=== PATIENT | female | born 1960 | race American Indian/Alaskan Native ===

== ENCOUNTER 2021-03-02 13:46 | Inpatient (IN) | payer BC, SELFPAY ==
[2021-03-02] MEDS ORDERED: ONDANSETRON 4 MG ODT TAB PO PRN (14:26)
[2021-03-02] MEDS ORDERED: ACETAMINOPHEN 325 MG TAB PO PRN (14:26)
[2021-03-02] MEDS: HEPARIN 5,000 UNIT/1 ML VIAL SUB-Q SCH (22:45)
[2021-03-03] MEDS: HEPARIN 5,000 UNIT/1 ML VIAL SUB-Q SCH ×3 (06:02→21:51)
[2021-03-03] MEDS: hydrALAZINE 20 MG/1 ML INJ IV PRN (06:15)
[2021-03-03 08:04] LABS: Basophils % (Auto) 0.9 % (0.0-1.8); Eosinophils # (Auto) 0.1 K/mm3 (0.0-0.4); Eosinophils % (Auto) 2.9 % (0.0-4.3); Hematocrit 24.3 % (30.3-42.9); Lymphocytes # (Auto) 1.1 K/mm3 (1.2-5.4); Lymphocytes % (Auto) 43.4 % (13.4-35.0); Mean Corpuscular HGB Conc 33 % (30-34); Mean Corpuscular Volume 86 fl (79-97); Monocytes # (Auto) 0.3 K/mm3 (0.0-0.8); Monocytes % (Auto) 10.4 % (0.0-7.3); Platelet Count 156 K/mm3 (140-440); Red Blood Count 2.81 M/mm3 (3.65-5.03)
[2021-03-03 08:16] LABS: Albumin 2.6 g/dL (3.9-5); Calcium 9.4 mg/dL (8.4-10.2)
[2021-03-03] MEDS: FERROUS SULFATE 325 MG TAB PO SCH (09:53)
[2021-03-03] MEDS: amLODIPine 10 MG TAB PO SCH (09:53)
--- NOTE | 2021-03-03 10:09 | History and Physical Report ---
History of Present Illness Date: 03/03/21 Date of admission: 03/02/21 18:36 Chief Complaint: Debility with difficulty walking History of present illness: 61-year-old female who experienced left-sided flank pain with onset about 2 weeks prior to presentation to outside hospital on February 26. Patient apparently had intermittent nausea and vomiting and decreased appetite and has felt unsteady on her feet. She was admitted, worked up and treated for pyelonephritis. However all cultures came back negative. CT head was negative for any acute findings. CT abdomen pelvis showed no acute findings or abnormalities to account for flank pain. Patient was seen by therapy who felt she was a good candidate for rehabilitation as she was showing significant decline in her ambulation. Patient lives with her daughter and is anxious to return to home as quickly as possible as she has a grandchild. Patient is now stating that she does not believe she has any problems with walking and wants to go home as soon as possible. After the patient was medically stabilized they were transferred for further rehabilitation. All available medical records have been reviewed. Plan of care was discussed with patient. Past History Past Medical History: hypertension Past Surgical History: No surgical history Social history: lives with family. denies: smoking, alcohol abuse Family history: hypertension Medications and Allergies Allergies Allergy/AdvReac Type Severity Reaction Status Date / Time No Known Allergies Allergy Verified 04/13/14 23:00 Home Medications Medication Instructions Recorded Confirmed Last Taken Type Lisinopril/Hydrochlorothiazide 1 tab PO QDAY #15 tablet 04/14/14 Unknown Rx [Zestoretic 10-12.5 mg] Active Meds: Active Medications Acetaminophen (Acetaminophen 325 Mg Tab) 650 mg PO Q6H PRN PRN Reason: Non Cardiac Pain or Temp>100.5 Amlodipine Besylate (Amlodipine 10 Mg Tab) 10 mg PO QDAY [facility] Last Admin: 03/03/21 09:53 Dose: 10 mg Documented by: Bisacodyl (Bisacodyl 10 Mg Rect Supp) 10 mg HI QDAY PRN PRN Reason: Constipation Bisacodyl (Bisacodyl 5 Mg Tab) 5 mg PO QDAY PRN PRN Reason: Constipation Ferrous Sulfate (Ferrous Sulfate 325 Mg Tab) 325 mg PO QDAY [facility] Last Admin: 03/03/21 09:53 Dose: 325 mg Documented by: Heparin Sodium (Porcine) (Heparin 5,000 Unit/1 Ml Vial) 5,000 unit SUB-Q Q8HR JARROD Last Admin: 03/03/21 06:02 Dose: 5,000 unit Documented by: Hydralazine HCl (Hydralazine 20 Mg/1 Ml Inj) 10 mg IV Q4HR PRN PRN Reason: Hypertension Last Admin: 03/03/21 06:15 Dose: 10 mg Documented by: Ondansetron HCl (Ondansetron 4 Mg Odt Tab) 4 mg PO Q8H PRN PRN Reason: Nausea And Vomiting Review of Systems All systems: negative (ROS negative for 10 systems except as noted below with pertinent positives and negatives.) Constitutional: no weight loss, no fever, no chills Ears, nose, mouth and throat: no decreased hearing, no dysphagia Cardiovascular: no palpitations, no edema Respiratory: no cough, no shortness of breath Gastrointestinal: constipation, no abdominal pain, no nausea, no vomiting, no diarrhea Musculoskeletal: no arm numbness/tingling, no leg numbness/tingling Integumentary: no rash, no redness Neurological: no weakness, no parathesias, no tremors Psychiatric: no anxiety, no sleep disturbances Exam - Exam Narrative exam: MUSCULOSKELETAL SPECIALTY EXAM CONSTITUTIONAL: Well developed, well nourished, appropriately groomed LYMPHATIC: No appreciable abnormalities palpable in neck EENT: Oropharynx clear. Hearing intact to soft voice RESPIRATORY: Clear to auscultation bilaterally, no increased work of breathing CARDIOVASCULAR: Regular Rate/ Rhythm, no swelling, edema or tenderness in BUE or BLE. Pulses palpable in all extremities. All extremities warm. GI: + bowel sounds, soft, NTTP, nondistended. INTEGUMENTARY: Normal, no lesion, rash, masses or bruising noted in extremities. MUSCULOSKELETAL: BUE and BLE normal without defect, crepitus, subluxation, effusion, arthritic changes or TTP. BUE 4+/5, good ROM, with normal tone. BLE 4+/5 good ROM, with normal tone NEURO: CN 2-12 grossly intact. Sensation intact in all extremities. Reflexes 2+ bilaterally at biceps, brachioradialis and patella. No clonus at ankles. Coordination intact in BUE. No tremor noted in 4 extremities. POSTURE and GAIT: Sitting posture good. Balance and gait deferred until seen with therapy due to safety. PSYCH: Alert, oriented x3, affect appears blunted. Insight appears mostly intact. - Constitutional Vitals: Vital Signs - 12hr 03/02/21 03/03/21 03/03/21 23:04 05:03 06:15 Temperature 98.9 F Pulse Rate 80 Respiratory 16 Rate Blood Pressure 164/95 Blood Pressure 164/95 [Right] O2 Sat by Pulse 98 100 Oximetry 03/03/21 03/03/21 07:07 09:53 Temperature 99.0 F Pulse Rate 80 80 Respiratory 16 Rate Blood Pressure 165/92 165/92 Blood Pressure [Right] O2 Sat by Pulse 100 Oximetry - Labs CBC & Chem 7: 03/03/21 06:52 03/03/21 06:52 Labs: Laboratory Results - last 72 hr 03/03/21 03/03/21 06:52 06:52 WBC 2.6 L RBC 2.81 L Hgb 8.0 L Hct 24.3 L MCV 86 MCH 28 MCHC 33 RDW 15.0 Plt Count 156 Lymph % (Auto) 43.[address] [place] % (Auto) 10.4 H Eos % (Auto) 2.9 Baso % (Auto) 0.9 Lymph # (Auto) 1.[address] [place] # (Auto) 0.3 Eos # (Auto) 0.1 Baso # (Auto) 0.0 Seg Neutrophils % 42.4 Seg Neutrophils # 1.1 L Sodium 138 Potassium 4.1 Chloride 109.6 H Carbon Dioxide 20 L Anion Gap 13 BUN 20 H Creatinine 1.3 H Estimated GFR 50 BUN/Creatinine Ratio 15 Glucose 89 Calcium 9.4 Iron 51 TIBC 176 L Total Bilirubin 0.30 AST 31 ALT 7 Alkaline Phosphatase 33 L Total Protein 9.0 H Albumin 2.6 L Albumin/Globulin Ratio 0.4 Assessment and Plan Assessment and plan: Patient was assessed and evaluated for Acute Inpatient Rehab Unit. Due to the patients above-mentioned medical complexity, along with decreased functional mobility and self care, this patient continues to require and be appropriate for a comprehensive, multidisciplinary [id number] rehabilitation program. These needs cannot be met in an outpatient or other less intensive setting. The patient would continue to benefit from skilled therapy intervention for at least 3 hours per day, five days a week, with techniques specific to the needs of the patient to improve function, activities of daily living, and reintegration into the community. The patient continues to require: -- OT to improve ROM, self-care, and learn use of adaptive equipment -- PT to improve strength and balance, functional transfers, and ambulation with energy conservation techniques to improve functional mobility -- 24 hour RN to ensure and prevent skin breakdown, promote progressive independence while ensuring safety, ensure education regarding medications, and incorporation of the rehabilitation at the bedside -- 24 hour Physical Medicine Specialist to coordinate this interdisciplinary program, and to manage/prevent complications as a result of the patients medical comorbidities. -Plan of care by day 4 -Weekly team conferences With such a program, there is a reasonable certainty that the goals individualized for this patient can be achieved within the specified length of stay. Hypertension: Continue medication. Monitor blood pressure. Adjust medications as needed for normotension. Hold for hypotension. Goal SBP <140 CKD 3: Monitor renal function and avoid nephrotoxic medications. Consider nephrology consult if needed. Work-up at outside hospital consider diuretic use prior to admission to be main culprit. Patient responded to gentle IV fluids. Patient previously with unknown CKD so no baseline creatinine on record. On admission to outside hospital, BUN 70, creatinine 4.01. Anemia: Patient was started on iron at outside hospital however TIBC on admission p.o. was 176 with a normal iron level. Will work-up anemia which may be related to CKD. Neutropenia, borderline: Records from outside hospital showed absolute neutrophils at 1.9, slightly decreased here. We will continue to monitor and consider neutropenic precautions if she continues to drop. ADL dysfunction: OT will work on improving ability to perform ADLs (including assistive devices) to increase independence and decrease caregiver burden and improve functional transfers and mobility training. Difficulty walking: PT will work on gait training and proper use of assistive devices and advance as appropriate to use of stairs and outside ambulation on uneven surfaces. Unsteadiness on feet: PT will work on improving static and dynamic sitting and standing balance as well as proper use of assistive devices to decrease risk of falls. Abnormality of gait: PT will work to improve safety and efficiency of gait through neuromotor training and gait training along with instruction on proper use of assistive devices. Muscle weakness: PT & OT will work on strengthening exercises to improve functional strength including mixture of closed and open kinetic chain exercises. Debility: PT & OT will work on improving overall functional status to improve participation with ADLs, mobility and social involvement. Fatigue: PT & OT will work on improving endurance through aerobic exercises and therapeutic activity while monitoring patients tolerance for activity and vital signs as needed. DVT ppx: Heparin 3 times daily Pain: Continue physical modalities in therapy and pain medications as needed to achieve functional pain control. Sleep: Monitor and address as needed. Bowel: Monitor and address as needed. Appetite: Monitor and address as needed. Discharge planning: Pending therapy progress and care plan meeting. Will continue discussion with therapy team, SW, patient and family. Restrictions/ Precautions: Falls WB status: FWB Functional Hx: ADLs: Independent Cognition: Independent Mobility: No AD Barriers to Discharge: Decreased mobility and ability to perform self care, balance deficits, weakness Estimated Length of Stay: 710 days Discharge Destination: Home with family POST ADMISSION PHYSICIAN EVALUATION I have examined the patient and find that functional status, medical condition and appropriateness for IRF admission are essentially unchanged from those d escribed in the preadmission screening. Will monitor for worsening mobility/debility, DVT/PE, bowel and bladder complications and complications due to hypertension, CKD, neutropenia, ill-defined anemia, recurrent infection and electrolyte abnormalities. Will attempt to avoid occurrence of these issues or treat them if they present themselves.
[2021-03-04] MEDS: HEPARIN 5,000 UNIT/1 ML VIAL SUB-Q SCH ×3 (05:26→21:32)
[2021-03-04] MEDS: amLODIPine 10 MG TAB PO SCH ×2 (06:38→08:49)
[2021-03-04] MEDS: FERROUS SULFATE 325 MG TAB PO SCH (08:49)
[2021-03-05] MEDS: HEPARIN 5,000 UNIT/1 ML VIAL SUB-Q SCH ×3 (05:17→21:15)
[2021-03-05 07:13] LABS: Hemoglobin 8.8 gm/dl (10.1-14.3); Mean Corpuscular HGB Conc 34 % (30-34); Mean Corpuscular Volume 85 fl (79-97); Platelet Count 160 K/mm3 (140-440); Red Blood Count 3.05 M/mm3 (3.65-5.03)
[2021-03-05 07:32] LABS: Calcium 9.6 mg/dL (8.4-10.2)
--- NOTE | 2021-03-05 08:58 | Progress Note ---
Subjective Date of service: 03/05/21 Principal diagnosis: Debility with difficulty walking Interval history: 61-year-old female who experienced left-sided flank pain with onset about 2 weeks prior to presentation to outside hospital on February 26. Patient apparently had intermittent nausea and vomiting and decreased appetite and has felt unsteady on her feet. She was admitted, worked up and treated for pyelonephritis. However all cultures came back negative. CT head was negative for any acute findings. CT abdomen pelvis showed no acute findings or abnormalities to account for flank pain. Patient was seen by therapy who felt she was a good candidate for rehabilitation as she was showing significant decline in her ambulation. Patient lives with her daughter and is anxious to return to home as quickly as possible as she has a grandchild. Patient is now stating that she does not believe she has any problems with walking and wants to go home as soon as possible. Hypertension: Patient remains slightly elevated greater than goal of 140/90. No episodes of hypotension. Start Coreg and monitor for improvement while attempting to avoid hypotension especially with standing. CKD 3: BUN and creatinine slightly worse today than on admission. No previously diagnosed renal disease however BUN and creatinine greatly elevated at outside hospital with suspected CKD 3. Patient had acute exacerbation as well but has been improving since outside admission. We will continue to monitor and consider gentle IV fluids versus nephrology consult. Anemia: Improved slightly, asymptomatic, continue to monitor. Awaiting labs for anemia work-up. Appears normocytic, with renal function would lean towards chronic disease. Leukopenia, borderline neutropenia: Stable currently, continue to monitor. Patient will need to further work-up as an outpatient. Patient does state that she feels like she is lost weight but cannot necessarily give me a number of pounds over the last several months. Debility: Improving. Protein calorie malnutrition: Have started supplements with meals. Objective - Exam Narrative Exam: MUSCULOSKELETAL SPECIALTY EXAM CONSTITUTIONAL: Well developed, well nourished, appropriately groomed RESPIRATORY: Clear to auscultation bilaterally, no increased work of breathing CARDIOVASCULAR: Regular Rate/ Rhythm, no swelling, edema or tenderness in BUE or BLE. All extremities warm. GI: + bowel sounds, soft, NTTP, nondistended. INTEGUMENTARY: Normal, no lesion, rash, masses or bruising noted in extremities. MUSCULOSKELETAL: BUE and BLE normal without defect, crepitus, subluxation, effusion, arthritic changes or TTP. BUE 4+/5, good ROM, with normal tone. BLE 4+/5 good ROM, with normal tone NEURO: Sensation intact in all extremities. No tremor noted in 4 extremities. POSTURE and GAIT: Sitting posture good. Balance is fair, gait is fairly reasonable with occasional loss of balance. PSYCH: Alert, oriented x3, affect appears blunted. Insight appears mostly intact. - Constitutional Vitals: Vital Signs - 12hr 03/04/21 03/05/21 03/05/21 22:00 05:06 07:39 Temperature 98.6 F 98.3 F Pulse Rate 94 H 86 Respiratory 16 18 Rate Respiratory 18 Rate [abd] Blood Pressure 144/77 141/77 O2 Sat by Pulse 99 99 Oximetry - Allied health notes Allied health notes reviewed: nursing, PT, OT FIMS assessment as documented by PT/OT/ST: Locomotion- walk/wheelchair Ambulation Distance 40 - Labs CBC & Chem 7: 03/05/21 06:46 03/05/21 06:46 Labs: Laboratory Results - last 72 hr 03/03/21 03/03/21 03/05/21 06:52 06:52 06:46 WBC 2.6 L 2.5 L RBC 2.81 L 3.05 L Hgb 8.0 L 8.8 L Hct 24.3 L 26.0 L MCV 86 85 MCH 28 29 MCHC 33 34 RDW 15.0 15.0 Plt Count 156 160 Lymph % (Auto) 43.4 H [place] % (Auto) 10.4 H Eos % (Auto) 2.9 Baso % (Auto) 0.9 Lymph # (Auto) 1.1 L [place] # (Auto) 0.3 Eos # (Auto) 0.1 Baso # (Auto) 0.0 Seg Neutrophils % 42.4 Seg Neutrophils # 1.1 L Sodium 138 Potassium 4.1 Chloride 109.6 H Carbon Dioxide 20 L Anion Gap 13 BUN 20 H Creatinine 1.3 H Estimated GFR 50 BUN/Creatinine Ratio 15 Glucose 89 Calcium 9.4 Iron 51 TIBC 176 L Total Bilirubin 0.30 AST 31 ALT 7 Alkaline Phosphatase 33 L Total Protein 9.0 H Albumin 2.6 L Albumin/Globulin Ratio 0.4 03/05/21 06:46 WBC RBC Hgb Hct MCV MCH MCHC RDW Plt Count Lymph % (Auto) [place] % (Auto) Eos % (Auto) Baso % (Auto) Lymph # (Auto) [place] # (Auto) Eos # (Auto) Baso # (Auto) Seg Neutrophils % Seg Neutrophils # Sodium 136 L Potassium 4.0 Chloride 106.1 Carbon Dioxide 21 L Anion Gap 13 BUN 25 H Creatinine 1.7 H Estimated GFR 37 BUN/Creatinine Ratio 15 Glucose 73 Calcium 9.6 Iron 58 TIBC 185 L Total Bilirubin AST ALT Alkaline Phosphatase Total Protein Albumin Albumin/Globulin Ratio Assessment and Plan Hypertension: Continue medication. Monitor blood pressure. Adjust medications as needed for normotension. Hold for hypotension. Goal SBP <140. Have started Coreg in addition to amlodipine. Monitor and adjust as needed CKD 3: Monitor renal function and avoid nephrotoxic medications. Consider nephrology consult if needed. Work-up at outside hospital consider diuretic use prior to admission to be main culprit. Patient responded to gentle IV fluids. Patient previously with unknown CKD so no baseline creatinine on record. On admission to outside hospital, BUN 70, creatinine 4.01. Anemia: Patient was started on iron at outside hospital however TIBC on admission p.o. was 176 with a normal iron level. Will work-up anemia which may be related to CKD. Labs are pending Leukopenia, borderline neutropenia: Records from outside hospital showed absolute neutrophils at 1.9, slightly decreased here. We will continue to monitor and consider neutropenic precautions if she continues to drop. Patient may need to have further work-up with hematology as an outpatient. Protein calorie malnutrition: Supplements started. Patient states she does not like the food available so far at the hospital. Did state that she also had some issues with eating at home. Has admitted to weight loss over the past several months but cannot put a number on it. ADL dysfunction: OT will work on improving ability to perform ADLs (including assistive devices) to increase independence and decrease caregiver burden and improve functional transfers and mobility training. Difficulty walking: PT will work on gait training and proper use of assistive devices and advance as appropriate to use of stairs and outside ambulation on uneven surfaces. Unsteadiness on feet: PT will work on improving static and dynamic sitting and standing balance as well as proper use of assistive devices to decrease risk of falls. Abnormality of gait: PT will work to improve safety and efficiency of gait through neuromotor training and gait training along with instruction on proper use of assistive devices. Muscle weakness: PT & OT will work on strengthening exercises to improve functional strength including mixture of closed and open kinetic chain exercises. Debility: PT & OT will work on improving overall functional status to improve participation with ADLs, mobility and social involvement. Fatigue: PT & OT will work on improving endurance through aerobic exercises and therapeutic activity while monitoring patients tolerance for activity and vital signs as needed. DVT ppx: Heparin 3 times daily Pain: Continue physical modalities in therapy and pain medications as needed to achieve functional pain control. Sleep: Monitor and address as needed. Bowel: Monitor and address as needed. Appetite: Monitor and address as needed. Discharge planning: Pending therapy progress and care plan meeting. Will continue discussion with therapy team, SW, patient and family. Restrictions/ Precautions: Falls WB status: FWB Functional Hx: ADLs: Independent Cognition: Independent Mobility: No AD Barriers to Discharge: Decreased mobility and ability to perform self care, balance deficits, weakness Estimated Length of Stay: 710 days Discharge Destination: Home with family
[2021-03-05 09:28] LABS: Total Cells Counted 100
[2021-03-05 09:29] LABS: Platelet Estimate Consistent w Auto; RBC Morphology Normal
[2021-03-05] MEDS: amLODIPine 10 MG TAB PO SCH (10:02)
[2021-03-05] MEDS: FERROUS SULFATE 325 MG TAB PO SCH (10:02)
[2021-03-05] MEDS: hydrALAZINE 20 MG/1 ML INJ IV PRN (16:24)
--- NOTE | 2021-03-05 21:09 | IRU Plan of Care ---
Interdisciplinary Plan of Care - IP IRU INTERDISCIPLINARY PLAN: [facility] Inpatient Rehab Unit Plan of Care IRU Interdisciplinary Care Plan Start: 03/02/21 18:40 Freq: Admission then PRN Status: Active Protocol: Document 03/05/21 20:05 TH (Rec: 03/05/21 20:10 TH [id number]) Interdisciplinary Problem List Interdisciplinary Problem List Interdisciplinary Problem List Impaired Bathing/Grooming, Query Text:Answers will Trigger Problems Impaired Dressing,Impaired and Outcomes on Worklist. Mobility,Impaired Transfers, Impaired Toileting,Impaired Memory,Discharge Concerns, Impaired Home Management, Impaired Safety,Impaired Cardiovascular System IRU Interdisciplinary Care Plan Therapy Services Therapy Services Will Include: Physical Therapy,Occupational Query Text:Patient will be seen for a Therapy minimum of 3 hours of daily therapy 5 out of 7 days a week. Therapy intensity may be adjusted within a 7 consecutive day period to effectively serve the individual needs of the patient. Treatment Frequency/Intensity/Duration Treatment Frequency 5 days per week Treatment Intensity 3 hours per day Treatment Duration 7-10 days Problem Area: Eating/Swallowing Eating/Swallowing Outcomes Eating/Swallowing Interventions Problem Area: Bathing/Grooming Bathing/Grooming Outcomes Improve [place] w/ Grooming,Improve [place] w/ Bathing Bathing/Grooming Interventions ADL Training,Use of Assistive Devices,Therapeutic Exercise, Therapeutic Activity, Neuromuscular Re-Education, Balance Work,Activity Tolerance Work,Patient/ Caregiver Education Problem Area: Dressing Dressing Outcomes Improve [place] w/ UB Dressing,Improve [place] w/ LB Dressing Dressing Interventions ADL Training,Use of Assistive Devices,Neuromuscular Re- Education,Therapeutic Exercise ,Balance Work,Modalities, Patient/Caregiver Education Problem Area: Mobility Mobility Outcomes Improve [place] w/ Ambulation,Improve [place] w/ Stairs/Curb Mobility Interventions Therapeutic Exercise, Neuromuscular Re-Ed.,Use of Assistive Devices,Patient/ Caregiver Education,Gait Training Problem Area: Transfers Transfers Outcomes Improve [place] w/ Bed Transfers Transfers Interventions Transfer Training,Therapeutic Exercise,Neuromuscular Re- Education,Activity Tolerance Work,Patient/Caregiver Education Problem Area: Bowel/Bladder Managment Bowel/Bladder Outcomes Bowel/Bladder Interventions Problem Area: Toileting Toileting Outcomes Improve [place] w/ Toileting Toileting Interventions ADL Training,Balance Work,Use of Assistive Devices,Patient/ Caregiver Education Problem Area: Nutrition Nutrition Outcomes Nutrition Interventions Problem Area: Comprehension Comprehension Outcomes Comprehension Interventions Problem Area: Expression Expression Outcomes Expression Interventions Problem Area: Problem Solving Problem Solving Outcomes Problem Solving Interventions Problem Area: Memory Memory Outcomes Memory Interventions Problem Area: Pain Management Pain Management Outcomes Pain Management Interventions Problem Area: Knowledge Deficits Knowledge Deficits Outcomes Knowledge Deficits Interventions Problem Area: Skin/Tissue Integrity Skin/Tissue Integrity Outcomes Skin/Tissue Integrity Interventions Problem Area: Social Interaction Social Interaction Outcomes Social Interaction Interventions Problem Area: Adjustment to Disability Adjustment to Disability Outcomes Adjustment to Disability Interventions Problem Area: Discharge Concerns Discharge Concerns Outcomes Discharge w/ Necessary Equipment,Have Home Health/ Outpatient Services Discharge Concerns Interventions Discharge Planning,Equipment Assessment, Acquisition and Placement,Family/Caregiver Training Problem Area: Community Reintegration Community Reintegration Outcomes Community Reintegration Interventions Problem Area: Home Management Home Management Outcomes Home Management Interventions Problem Area: Safety Safety Outcomes Demonstrate Good Safety w/ Transfers/Mobility Safety Interventions Identify Fall Risk,Mittie Pt. to Environment,Reduce Environmental Hazards Problem Area: Medication Education Medication Education Outcomes Medication Education Interventions Problem Area: Diabetes Education Diabetes Education Outcomes Diabetes Education Interventions Problem Area: Oxygenation Oxygenation Outcomes Oxygenation Interventions Problem Area: Cardiovascular Cardiovascular Outcomes Maintain or Improve Cardiovascular Status Cardiovascular Interventions Assess Vital Signs at least Every 4 hours,Cardiac Monitoring, EKG and ABG as Ordered. Physician Only Medical Prognosis and Rehabilitation Potential (Completed by Physician) Good medical prognosis, good rehab potential This plan of care has been developed based on the findings from the pre- admission assessment, post admission physician evaluation, information gathered from the assessments from all therapy disciplines and other pertinent clinicians. The plan of care has been reviewed and discussed in collaboration with the interdisciplinary team. The plan of care will be reviewed and updated at least weekly.
[2021-03-05] MEDS: carvediloL 3.125 MG TAB PO SCH (21:16)
[2021-03-06] MEDS: HEPARIN 5,000 UNIT/1 ML VIAL SUB-Q SCH ×3 (05:11→22:22)
--- NOTE | 2021-03-06 08:15 | Progress Note ---
Subjective Date of service: 03/06/21 Principal diagnosis: Debility with difficulty walking Interval history: 61-year-old female who experienced left-sided flank pain with onset about 2 weeks prior to presentation to outside hospital on February 26. Patient apparently had intermittent nausea and vomiting and decreased appetite and has felt unsteady on her feet. She was admitted, worked up and treated for pyelonephritis. However all cultures came back negative. CT head was negative for any acute findings. CT abdomen pelvis showed no acute findings or abnormalities to account for flank pain. Patient was seen by therapy who felt she was a good candidate for rehabilitation as she was showing significant decline in her ambulation. Patient lives with her daughter and is anxious to return to home as quickly as possible as she has a grandchild. Patient is now stating that she does not believe she has any problems with walking and wants to go home as soon as possible. Interval History: Patient is participating in therapy and making reasonable progress. Taking rest breaks as needed. +BM. Denies pain, palpitations, dyspnea, cough, N/V or joint pain. Hypertension: Patient remains slightly elevated greater than goal of 140/90. No episodes of hypotension. Slightly better after starting Coreg, continue to monitor for improvement in blood pressure goals. Dementia, likely moderate: Speech therapy consult ordered for further testing. Patient will need 24/7 supervision at home. CKD 3: BUN and creatinine slightly worse today than on admission. No previously diagnosed renal disease however BUN and creatinine greatly elevated at outside hospital with suspected CKD 3. Patient had acute exacerbation as well but has been improving since outside admission. We will continue to monitor and consider gentle IV fluids versus nephrology consult. Anemia: Improved slightly, asymptomatic, continue to monitor. Based on full range of labs that have been obtained, this is likely anemia of chronic disease and related to her chronic kidney disease. As such, I have stopped iron which was started at the outside hospital. Leukopenia, borderline neutropenia: Stable currently, continue to monitor. Patient will need to further work-up as an outpatient. Patient does state that she feels like she is lost weight but cannot necessarily give me a number of pounds over the last several months. Debility: Improving. Protein calorie malnutrition: Have started supplements with meals. Added multivitamin today. All records, vitals, labs and medications were reviewed. No other issues per patient, nursing or therapy. Patient discussed today in team conference. Noted after therapy sessions yesterday that patient seems to have issue with dementia that was not disclosed previously. Based on deeper conversations with the patient as well as what therapist are seeing I would say that this is in the moderate range and has likely been present for some time. Unfortunately outside hospital records stated that the cognition was within normal functional limits. Patient is having difficulty following simple directions and has issues remembering conversations from less than 2 minutes prior. Attempted to call the patient's daughter to discuss these findings with her, however there was no answer and I will attempt to call again. One of the therapists did state that they have spoken with her and sounds like this was a known issue previously. Based on this, we are not likely to make much progress for the debility and we will look to discharge at the end of the week. Would recommend that the patient have continuous supervision, may even be more appropriate for memory care unit at this time depending upon level of care that the daughter can offer. Patient sta arnoldo to me yesterday that she did not like the food which was why she did not eat, however in talking with nursing if they open the tray and prep everything for her she ate everything off the tray for each meal. As far as discharge arrangements, patient is likely to be safe for utilizing a wheelchair however she is very slow with this and would need assistance with going from place to place. She will absolutely need to follow-up with primary care and have her renal function, hypertension, and leukopenia monitored on a regular basis. Objective - Exam Narrative Exam: MUSCULOSKELETAL SPECIALTY EXAM CONSTITUTIONAL: Well developed, well nourished, appropriately groomed, thin RESPIRATORY: Clear to auscultation bilaterally, no increased work of breathing CARDIOVASCULAR: Regular Rate/ Rhythm, no swelling, edema or tenderness in BUE or BLE. All extremities warm. GI: + bowel sounds, soft, NTTP, nondistended. INTEGUMENTARY: Normal, no lesion, rash, masses or bruising noted in extremities. MUSCULOSKELETAL: BUE and BLE normal without defect, crepitus, subluxation, effusion, arthritic changes or TTP. BUE 4+/5, good ROM, with normal tone. BLE 4+/5 good ROM, with normal tone NEURO: Sensation intact in all extremities. No tremor noted in 4 extremities. Patient takes prolonged time with activities and has decreased memory of directions. POSTURE and GAIT: Sitting posture good. Balance is fair, gait is fairly reasonable with occasional loss of balance. PSYCH: Alert, oriented x3, affect appears blunted. Insight impaired on deeper questioning. - Constitutional Vitals: Vital Signs - 12hr 03/06/21 03/06/21 03/06/21 00:20 05:13 07:25 Temperature 99.6 F 98.8 F 98.9 F Pulse Rate 76 75 82 Respiratory 18 18 16 Rate Blood Pressure 130/70 130/79 140/87 O2 Sat by Pulse 99 98 100 Oximetry - Allied health notes Allied health notes reviewed: nursing, PT, OT FIMS assessment as documented by PT/OT/ST: Social interaction/Memory/Problem solving Social Interaction FIM Score 3. Moderate Assistance (Interacts appropriately 50-74%.) Memory FIM Score 2. Maximal Assistance (Recognizes and remembers 25-49%.) Problem Solving FIM Score 3. Moderate Assistance (Solves routine problems 50-74%.) Transfers Mode of Locomotion: Wheelchair Bed/Chair/Wheelchair Transfers 4. Minimal Assistance (Patient = 75% or more. FIM Score Needs touching.) Locomotion- walk/wheelchair Ambulation Distance 40 - Labs CBC & Chem 7: 03/05/21 06:46 03/05/21 06:46 Labs: Laboratory Results - last 72 hr 03/03/21 03/05/21 03/05/21 06:52 06:46 06:46 WBC 2.5 L RBC 3.05 L Hgb 8.8 L Hct 26.0 L MCV 85 MCH 29 MCHC 34 RDW 15.0 Plt Count 160 Add Manual Diff Complete Total Counted 100 Seg Neuts % (Manual) 45.0 Lymphocytes % (Manual) 47.0 H Monocytes % (Manual) 6.0 Eosinophils % (Manual) 2.0 Nucleated RBC % Not Reportable Seg Neutrophils # Man 1.1 L Band Neutrophils # 0.0 Lymphocytes # (Manual) 1.2 Abs React Lymphs (Man) 0.0 Monocytes # (Manual) 0.2 Eosinophils # (Manual) 0.1 Basophils # (Manual) 0.0 Metamyelocytes # 0.0 Myelocytes # 0.0 Promyelocytes # 0.0 Blast Cells # 0.0 WBC Morphology Not Reportable Hypersegmented Neuts Not Reportable Hyposegmented Neuts Not Reportable Hypogranular Neuts Not Reportable Smudge Cells Not Reportable Toxic Granulation Not Reportable Toxic Vacuolation Not Reportable Dohle Bodies Not Reportable Pelger-Huet Anomaly Not Reportable Lesley Rods Not Reportable Platelet Estimate Consistent w auto Clumped Platelets Not Reportable Plt Clumps, EDTA Not Reportable Large Platelets Not Reportable Giant Platelets Not Reportable Platelet Satelliting Not Reportable Plt Morphology Comment Not Reportable RBC Morphology Normal Dimorphic RBCs Not Reportable Polychromasia Not Reportable Hypochromasia Not Reportable Poikilocytosis Not Reportable Anisocytosis Not Reportable Microcytosis Not Reportable Macrocytosis Not Reportable Spherocytes Not Reportable Pappenheimer Bodies Not Reportable Sickle Cells Not Reportable Target Cells Not Reportable Tear Drop Cells Not Reportable Ovalocytes Not Reportable Helmet Cells Not Reportable [place] Bodies Not Reportable [place] Rings Not Reportable [place] Cells Not Reportable Bite Cells Not Reportable Crenated Cell Not Reportable Elliptocytes Not Reportable Acanthocytes (Spur) Not Reportable Rouleaux Not Reportable Hemoglobin C Crystals Not Reportable Schistocytes Not Reportable Malaria parasites Not Reportable Artemio Bodies Not Reportable Hem Pathologist Commnt No Sodium 138 136 L Potassium 4.1 4.0 Chloride 109.6 H 106.1 Carbon Dioxide 20 L 21 L Anion Gap 13 13 BUN 20 H 25 H Creatinine 1.3 H 1.7 H Estimated GFR 50 37 BUN/Creatinine Ratio 15 15 Glucose 89 73 Calcium 9.4 9.6 Iron 51 58 TIBC 176 L 185 L Ferritin Total Bilirubin 0.30 AST 31 ALT 7 Alkaline Phosphatase 33 L Total Protein 9.0 H Albumin 2.6 L Albumin/Globulin Ratio 0.4 Vitamin B12 Folate 03/05/21 03/05/21 03/05/21 14:08 14:08 14:08 WBC RBC Hgb Hct MCV MCH MCHC RDW Plt Count Add Manual Diff Total Counted Seg Neuts % (Manual) Lymphocytes % (Manual) Monocytes % (Manual) Eosinophils % (Manual) Nucleated RBC % Seg Neutrophils # Man Band Neutrophils # Lymphocytes # (Manual) Abs React Lymphs (Man) Monocytes # (Manual) Eosinophils # (Manual) Basophils # (Manual) Metamyelocytes # Myelocytes # Promyelocytes # Blast Cells # WBC Morphology Hypersegmented Neuts Hyposegmented Neuts Hypogranular Neuts Smudge Cells Toxic Granulation Toxic Vacuolation Dohle Bodies Pelger-Huet Anomaly Lesley Rods Platelet Estimate Clumped Platelets Plt Clumps, EDTA Large Platelets Giant Platelets Platelet Satelliting Plt Morphology Comment RBC Morphology Dimorphic RBCs Polychromasia Hypochromasia Poikilocytosis Anisocytosis Microcytosis Macrocytosis Spherocytes Pappenheimer Bodies Sickle Cells Target Cells Tear Drop Cells Ovalocytes Helmet Cells [place] Bodies [place] Rings [place] Cells Bite Cells Crenated Cell Elliptocytes Acanthocytes (Spur) Rouleaux Hemoglobin C Crystals Schistocytes Malaria parasites Artemio Bodies Hem Pathologist Commnt Sodium Potassium Chloride Carbon Dioxide Anion Gap BUN Creatinine Estimated GFR BUN/Creatinine Ratio Glucose Calcium Iron TIBC Ferritin 478.3 H Total Bilirubin AST ALT Alkaline Phosphatase Total Protein Albumin Albumin/Globulin Ratio Vitamin B12 831.0 Folate 17.88 Assessment and Plan Hypertension: Continue medication. Monitor blood pressure. Adjust medications as needed for normotension. Hold for hypotension. Goal SBP <140. Have started Coreg in addition to amlodipine. Monitor and adjust as needed CKD 3: Monitor renal function and avoid nephrotoxic medications. Consider nephrology consult if needed. Work-up at outside hospital consider diuretic use prior to admission to be main culprit. Patient responded to gentle IV fluids. Patient previously with unknown CKD so no baseline creatinine on record. On admission to outside hospital, BUN 70, creatinine 4.01. Anemia: Lab values are consistent with anemia of chronic disease, likely related to CKD. Iron which is started outside hospital has been stopped. Leukopenia, borderline neutropenia: Records from outside hospital showed absolute neutrophils at 1.9, slightly decreased here. We will continue to monitor and consider neutropenic precautions if she continues to drop. Patient may need to have further work-up with hematology as an outpatient. Protein calorie malnutrition: Supplements and multivitamin started. Patient stated that she does not like the food available at the hospital and restated that to me again today however in talking with nursing if they set up the tray for her she eats everything on the plate. If they do not set it up for her she ends up drifting back to sleep, almost like she cannot work out the issues with opening the tray and the silverware etc. Dementia, likely moderate: Have requested speech therapy consult based on findings that I am seeing as well as what the therapist are seen. Patient likely has a history of dementia which was not previously disclosed and based on what I am seeing its likely at least moderate in nature. Attempted to contact the daughter to discuss this issue further however did not get an answer yet, will attempt again. ADL dysfunction: OT will work on improving ability to perform ADLs (including assistive devices) to increase independence and decrease caregiver burden and improve functional transfers and mobility training. Difficulty walking: PT will work on gait training and proper use of assistive devices and advance as appropriate to use of stairs and outside ambulation on u kareem surfaces. Unsteadiness on feet: PT will work on improving static and dynamic sitting and standing balance as well as proper use of assistive devices to decrease risk of falls. Abnormality of gait: PT will work to improve safety and efficiency of gait through neuromotor training and gait training along with instruction on proper use of assistive devices. Muscle weakness: PT & OT will work on strengthening exercises to improve functional strength including mixture of closed and open kinetic chain exercises. Debility: PT & OT will work on improving overall functional status to improve p articipation with ADLs, mobility and social involvement. Fatigue: PT & OT will work on improving endurance through aerobic exercises and therapeutic activity while monitoring patients tolerance for activity and vital signs as needed. DVT ppx: Heparin 3 times daily Pain: Continue physical modalities in therapy and pain medications as needed to achieve functional pain control. Sleep: Monitor and address as needed. Bowel: Monitor and address as needed. Appetite: Monitor and address as needed. Discharge planning: Pending therapy progress and care plan meeting. Will continue discussion with therapy team, SW, patient and family. Plan to discharge by the end of the week home with supervision or to a memory care depending on the family's ability to provide appropriate level of care. Restrictions/ Precautions: Falls WB status: FWB Functional Hx: ADLs: Independent Cognition: Independent Mobility: No AD Barriers to Discharge: Decreased mobility and ability to perform self care, ba shivam deficits, weakness Estimated Length of Stay: 710 days Discharge Destination: Home with family versus memory care/SNF
[2021-03-06] MEDS: FERROUS SULFATE 325 MG TAB PO SCH (08:18)
[2021-03-06] MEDS: amLODIPine 10 MG TAB PO SCH (08:19)
[2021-03-06] MEDS: carvediloL 3.125 MG TAB PO SCH ×2 (08:19→22:22)
[2021-03-06] MEDS: MULTIVITAMINS,THER W-MINERALS TAB PO SCH (14:56)
[2021-03-07] MEDS: HEPARIN 5,000 UNIT/1 ML VIAL SUB-Q SCH ×3 (06:03→22:22)
[2021-03-07 08:00] LABS: Eosinophils % (Auto) 1.4 % (0.0-4.3); Hematocrit 21.6 % (30.3-42.9); Hemoglobin 7.2 gm/dl (10.1-14.3); Lymphocytes # (Auto) 1.4 K/mm3 (1.2-5.4); Lymphocytes % (Auto) 45.8 % (13.4-35.0); Mean Corpuscular HGB Conc 34 % (30-34); Mean Corpuscular Volume 85 fl (79-97); Monocytes # (Auto) 0.4 K/mm3 (0.0-0.8); Monocytes % (Auto) 13.1 % (0.0-7.3); Platelet Count 162 K/mm3 (140-440); Red Blood Count 2.54 M/mm3 (3.65-5.03); Red Cell Distribution Width 15.1 % (13.2-15.2)
[2021-03-07 08:10] LABS: Calcium 9.6 mg/dL (8.4-10.2)
[2021-03-07] MEDS ORDERED: SODIUM CHLORIDE 0.9% 1000 ML 1,000 ML IV SCH (08:30)
--- NOTE | 2021-03-07 08:32 | Progress Note ---
Subjective Date of service: 03/07/21 Principal diagnosis: Debility with difficulty walking Interval history: 61-year-old female who experienced left-sided flank pain with onset about 2 weeks prior to presentation to outside hospital on February 26. Patient apparently had intermittent nausea and vomiting and decreased appetite and has felt unsteady on her feet. She was admitted, worked up and treated for pyelonephritis. However all cultures came back negative. CT head was negative for any acute findings. CT abdomen pelvis showed no acute findings or abnormalities to account for flank pain. Patient was seen by therapy who felt she was a good candidate for rehabilitation as she was showing significant decline in her ambulation. Patient lives with her daughter and is anxious to return to home as quickly as possible as she has a grandchild. Patient is now stating that she does not believe she has any problems with walking and wants to go home as soon as possible. Interval History: Patient is participating in therapy and making reasonable progress. Taking rest breaks as needed. -BM. Denies pain, palpitations, dyspnea, cough, N/V or joint pain. Decreased oral intake worse without assistance. Hypertension: Patient remains slightly elevated greater than goal of 140/90. No episodes of hypotension. Slightly better after starting Coreg, continue to monitor for improvement in blood pressure goals. Dementia, likely moderate: Speech therapy consult ordered for further testing. Patient will need 24/7 supervision at home. CKD 3: BUN and creatinine worse today. Gentle IVF and recheck. No previously diagnosed renal disease however BUN and creatinine greatly elevated at outside hospital with suspected CKD 3. Anemia: worse today, down to 7.2. Asymptomatic, continue to monitor. Based on full range of labs that have been obtained, this is likely anemia of chronic disease and related to her chronic kidney disease. Leukopenia, borderline neutropenia: Slightly improved today, continue to monitor. Patient will need to further work-up as an outpatient. Debility: Stable. Protein calorie malnutrition: Have started supplements with meals and multivitam in. All records, vitals, labs and medications were reviewed. No other issues per patient, nursing or therapy. Objective - Exam Narrative Exam: MUSCULOSKELETAL SPECIALTY EXAM CONSTITUTIONAL: Well developed, well nourished, appropriately groomed, thin RESPIRATORY: Clear to auscultation bilaterally, no increased work of breathing CARDIOVASCULAR: Regular Rate/ Rhythm, no swelling, edema or tenderness in BUE or BLE. All extremities warm. GI: + bowel sounds, soft, NTTP, nondistended. INTEGUMENTARY: Normal, no lesion, rash, masses or bruising noted in extremities. MUSCULOSKELETAL: BUE and BLE normal without defect, crepitus, subluxation, effusion, arthritic changes or TTP. BUE 4+/5, good ROM, with normal tone. BLE 4+/5 good ROM, with normal tone NEURO: Sensation intact in all extremities. No tremor noted in 4 extremities. Patient takes prolonged time with activities and has decreased memory of directions. POSTURE and GAIT: Sitting posture good. Balance is fair, gait is fairly reasonable with occasional loss of balance. PSYCH: Alert, oriented x3, affect appears blunted. Insight impaired on deeper questioning. - Constitutional Vitals: Vital Signs - 12hr 03/06/21 03/06/21 03/07/21 22:22 23:55 04:12 Temperature 98.8 F Pulse Rate 79 Respiratory 18 Rate Blood Pressure 135/75 133/83 O2 Sat by Pulse 98 99 Oximetry 03/07/21 07:11 Temperature 98.9 F Pulse Rate 69 Respiratory 16 Rate Blood Pressure 119/64 O2 Sat by Pulse 100 Oximetry - Allied health notes Allied health notes reviewed: nursing, PT, ST, OT FIMS assessment as documented by PT/OT/ST: Social interaction/Memory/Problem solving Social Interaction FIM Score 2. Maximal Assistance (Appropriate 25-49% or needs restraint.) Memory FIM Score 2. Maximal Assistance (Recognizes and remembers 25-49%.) Problem Solving FIM Score 2. Maximal Assistance (Solves problems 25-49% or needs restraint.) Transfers Mode of Locomotion: Wheelchair Bed/Chair/Wheelchair Transfers 4. Minimal Assistance (Patient = 75% or more. FIM Score Needs touching.) Toilet Transfers FIM Score 4. Minimal Assistance (Patient = 75% or more. Needs touching.) Locomotion- walk/wheelchair Ambulation Distance 40 Dressing-lower body Patient retrieves clothing No items: Lower Body Dressing FIM Score 5. Supv./Set-Up ([place] sets out clothes or applies pros./orth.) - Labs CBC & Chem 7: 03/07/21 07:00 03/07/21 07:00 Labs: Laboratory Results - last 72 hr 03/05/21 03/05/21 03/05/21 06:46 06:46 14:08 WBC 2.5 L RBC 3.05 L Hgb 8.8 L Hct 26.0 L MCV 85 MCH 29 MCHC 34 RDW 15.0 Plt Count 160 Lymph % (Auto) Ferry % (Auto) Eos % (Auto) Baso % (Auto) Lymph # (Auto) [place] # (Auto) Eos # (Auto) Baso # (Auto) Add Manual Diff Complete Total Counted 100 Seg Neutrophils % Seg Neuts % (Manual) 45.0 Lymphocytes % (Manual) 47.0 H Monocytes % (Manual) 6.0 Eosinophils % (Manual) 2.0 Nucleated RBC % Not Reportable Seg Neutrophils # Seg Neutrophils # Man 1.1 L Band Neutrophils # 0.0 Lymphocytes # (Manual) 1.2 Abs React Lymphs (Man) 0.0 Monocytes # (Manual) 0.2 Eosinophils # (Manual) 0.1 Basophils # (Manual) 0.0 Metamyelocytes # 0.0 Myelocytes # 0.0 Promyelocytes # 0.0 Blast Cells # 0.0 WBC Morphology Not Reportable Hypersegmented Neuts Not Reportable Hyposegmented Neuts Not Reportable Hypogranular Neuts Not Reportable Smudge Cells Not Reportable Toxic Granulation Not Reportable Toxic Vacuolation Not Reportable Dohle Bodies Not Reportable Pelger-Huet Anomaly Not Reportable Lesley Rods Not Reportable Platelet Estimate Consistent w auto Clumped Platelets Not Reportable Plt Clumps, EDTA Not Reportable Large Platelets Not Reportable Giant Platelets Not Reportable Platelet Satelliting Not Reportable Plt Morphology Comment Not Reportable RBC Morphology Normal Dimorphic RBCs Not Reportable Polychromasia Not Reportable Hypochromasia Not Reportable Poikilocytosis Not Reportable Anisocytosis Not Reportable Microcytosis Not Reportable Macrocytosis Not Reportable Spherocytes Not Reportable Pappenheimer Bodies Not Reportable Sickle Cells Not Reportable Target Cells Not Reportable Tear Drop Cells Not Reportable Ovalocytes Not Reportable Helmet Cells Not Reportable Hammonds-Leith Bodies Not Reportable [place] Rings Not Reportable Hussein Cells Not Reportable Bite Cells Not Reportable Crenated Cell Not Reportable Elliptocytes Not Reportable Acanthocytes (Spur) Not Reportable Rouleaux Not Reportable Hemoglobin C Crystals Not Reportable Schistocytes Not Reportable Malaria parasites Not Reportable Artemio Bodies Not Reportable Hem Pathologist Commnt No Sodium 136 L Potassium 4.0 Chloride 106.1 Carbon Dioxide 21 L Anion Gap 13 BUN 25 H Creatinine 1.7 H Estimated GFR 37 BUN/Creatinine Ratio 15 Glucose 73 Calcium 9.6 Iron 58 TIBC 185 L Ferritin 478.3 H Vitamin B12 Folate 03/05/21 03/05/21 03/07/21 14:08 14:08 07:00 WBC 3.1 L RBC 2.54 L Hgb 7.2 L Hct 21.6 L MCV 85 MCH 29 MCHC 34 RDW 15.1 Plt Count 162 Lymph % (Auto) 45.8 H [place]erry % (Auto) 13.1 H Eos % (Auto) 1.4 Baso % (Auto) 1.0 Lymph # (Auto) 1.4 Ferry # (Auto) 0.4 Eos # (Auto) 0.0 Baso # (Auto) 0.0 Add Manual Diff Total Counted Seg Neutrophils % 38.7 L Seg Neuts % (Manual) Lymphocytes % (Manual) Monocytes % (Manual) Eosinophils % (Manual) Nucleated RBC % Seg Neutrophils # 1.2 L Seg Neutrophils # Man Band Neutrophils # Lymphocytes # (Manual) Abs React Lymphs (Man) Monocytes # (Manual) Eosinophils # (Manual) Basophils # (Manual) Metamyelocytes # Myelocytes # Promyelocytes # Blast Cells # WBC Morphology Hypersegmented Neuts Hyposegmented Neuts Hypogranular Neuts Smudge Cells Toxic Granulation Toxic Vacuolation Dohle Bodies Pelger-Huet Anomaly Lesley Rods Platelet Estimate Clumped Platelets Plt Clumps, EDTA Large Platelets Giant Platelets Platelet Satelliting Plt Morphology Comment RBC Morphology Dimorphic RBCs Polychromasia Hypochromasia Poikilocytosis Anisocytosis Microcytosis Macrocytosis Spherocytes Pappenheimer Bodies Sickle Cells Target Cells Tear Drop Cells Ovalocytes Helmet Cells Hammonds-Leith Bodies Keene Rings Hussein Cells Bite Cells Crenated Cell Elliptocytes Acanthocytes (Spur) Rouleaux Hemoglobin C Crystals Schistocytes Malaria parasites Artemio Bodies Hem Pathologist Commnt Sodium Potassium Chloride Carbon Dioxide Anion Gap BUN Creatinine Estimated GFR BUN/Creatinine Ratio Glucose Calcium Iron TIBC Ferritin Vitamin B12 831.0 Folate 17.88 03/07/21 07:00 WBC RBC Hgb Hct MCV MCH MCHC RDW Plt Count Lymph % (Auto) [place]erry % (Auto) Eos % (Auto) Baso % (Auto) Lymph # (Auto) [place] # (Auto) Eos # (Auto) Baso # (Auto) Add Manual Diff Total Counted Seg Neutrophils % Seg Neuts % (Manual) Lymphocytes % (Manual) Monocytes % (Manual) Eosinophils % (Manual) Nucleated RBC % Seg Neutrophils # Seg Neutrophils # Man Band Neutrophils # Lymphocytes # (Manual) Abs React Lymphs (Man) Monocytes # (Manual) Eosinophils # (Manual) Basophils # (Manual) Metamyelocytes # Myelocytes # Promyelocytes # Blast Cells # WBC Morphology Hypersegmented Neuts Hyposegmented Neuts Hypogranular Neuts Smudge Cells Toxic Granulation Toxic Vacuolation Dohle Bodies Pelger-Huet Anomaly Lesley Rods Platelet Estimate Clumped Platelets Plt Clumps, EDTA Large Platelets Giant Platelets Platelet Satelliting Plt Morphology Comment RBC Morphology Dimorphic RBCs Polychromasia Hypochromasia Poikilocytosis Anisocytosis Microcytosis Macrocytosis Spherocytes Pappenheimer Bodies Sickle Cells Target Cells Tear Drop Cells Ovalocytes Helmet Cells Hammonds-Leith Bodies Keene Rings [place] Cells Bite Cells Crenated Cell Elliptocytes Acanthocytes (Spur) Rouleaux Hemoglobin C Crystals Schistocytes Malaria parasites Artemio Bodies Hem Pathologist Commnt Sodium 138 Potassium 4.0 Chloride 108.5 H Carbon Dioxide 21 L Anion Gap 13 BUN 33 H Creatinine 1.9 H Estimated GFR 32 BUN/Creatinine Ratio 17 Glucose 101 H Calcium 9.6 Iron TIBC Ferritin Vitamin B12 Folate Assessment and Plan Hypertension: Continue medication. Monitor blood pressure. Adjust medications as needed for normotension. Hold for hypotension. Goal SBP <140. Have started Coreg in addition to amlodipine. Monitor and adjust as needed CKD 3: Gentle IVF. Monitor renal function and avoid nephrotoxic medications. Consider nephrology consult if needed. Work-up at outside hospital consider diuretic use prior to admission to be main culprit. Patient previously with unknown CKD so no baseline creatinine on record. On admission to outside hospital, BUN 70, creatinine 4.01. Anemia: Lab values are consistent with anemia of chronic disease, likely related to CKD. Monitor and consider transfusion for Hgb <7. Leukopenia, borderline neutropenia: Records from outside hospital showed absolute neutrophils at 1.9, slightly decreased here. We will continue to monitor and consider neutropenic precautions if she continues to drop. Patient needs to have further work-up with hematology as an outpatient. Protein calorie malnutrition: Supplements and multivitamin started. Patient stated that she does not like the food available at the hospital and restated that to me again today however in talking with nursing if they set up the tray for her she eats everything on the plate. If they do not set it up for her she ends up drifting back to sleep, almost like she cannot work out the issues with opening the tray and the silverware etc. Dementia, likely moderate: Moderate cognitive decline per testing with [employer]. Patient likely has a history of dementia which was not previously disclosed and based on what I am seeing its likely at least moderate in nature. Contacted jody minor and she states that patient has been in a sudden decline since Dec 2020. Would recommend follow up with neurology for further workup. ADL dysfunction: OT will work on improving ability to perform ADLs (including assistive devices) to increase independence and decrease caregiver burden and i mprove functional transfers and mobility training. Difficulty walking: PT will work on gait training and proper use of assistive devices and advance as appropriate to use of stairs and outside ambulation on uneven surfaces. Unsteadiness on feet: PT will work on improving static and dynamic sitting and standing balance as well as proper use of assistive devices to decrease risk of falls. Abnormality of gait: PT will work to improve safety and efficiency of gait through neuromotor training and gait training along with instruction on proper use of assistive devices. Muscle weakness: PT & OT will work on strengthening exercises to improve functional strength including mixture of closed and open kinetic chain exercises. Debility: PT & OT will work on improving overall functional status to improve participation with ADLs, mobility and social involvement. Fatigue: PT & OT will work on improving endurance through aerobic exercises and therapeutic activity while monitoring patients tolerance for activity and vital signs as needed. DVT ppx: Heparin 3 times daily Pain: Continue physical modalities in therapy and pain medications as needed to achieve functional pain control. Sleep: Monitor and address as needed. Bowel: Monitor and address as needed. Appetite: Monitor and address as needed. Discharge planning: Pending therapy progress and care plan meeting. Will continue discussion with therapy team, SW, patient and family. Plan to discharge by the end of the week home with supervision or to a memory care depending on the family's ability to provide appropriate level of care. Restrictions/ Precautions: Falls WB status: FWB Functional Hx: ADLs: Independent Cognition: Independent Mobility: No AD Barriers to Discharge: Decreased mobility and ability to perform self care, balance deficits, weakness Estimated Length of Stay: 710 days Discharge Destination: Home with family versus memory care/SNF
[2021-03-07] MEDS: MULTIVITAMINS,THER W-MINERALS TAB PO SCH (10:17)
[2021-03-07] MEDS: carvediloL 3.125 MG TAB PO SCH ×2 (10:17→22:22)
[2021-03-07] MEDS: amLODIPine 10 MG TAB PO SCH (15:17)
[2021-03-08] MEDS: HEPARIN 5,000 UNIT/1 ML VIAL SUB-Q SCH (06:12)
[2021-03-08 07:32] LABS: Calcium 9.3 mg/dL (8.4-10.2)
--- NOTE | 2021-03-08 08:22 | Progress Note ---
Subjective Date of service: 03/08/21 Principal diagnosis: Debility with difficulty walking Interval history: 61-year-old female who experienced left-sided flank pain with onset about 2 weeks prior to presentation to outside hospital on February 26. Patient apparently had intermittent nausea and vomiting and decreased appetite and has felt unsteady on her feet. She was admitted, worked up and treated for pyelonephritis. However all cultures came back negative. CT head was negative for any acute findings. CT abdomen pelvis showed no acute findings or abnormalities to account for flank pain. Patient was seen by therapy who felt she was a good candidate for rehabilitation as she was showing significant decline in her ambulation. Patient lives with her daughter and is anxious to return to home as quickly as possible as she has a grandchild. Patient is now stating that she does not believe she has any problems with walking and wants to go home as soon as possible. Interval History: Patient is participating in therapy and making reasonable progress. Taking rest breaks as needed. -BM. Low grade fever overnight. Denies pain, palpitations, dyspnea, cough, N/V or joint pain. Decreased oral intake worse without assistance. Hypertension: Patient remains slightly elevated greater than goal of 140/90. No episodes of hypotension. Slightly better after starting Coreg, continue to monitor for improvement in blood pressure goals. Dementia, likely moderate: Speech therapy consult ordered for further testing. Patient will need 24/7 supervision at home. Mild fever: Urine and CXR ordered. Looked back over records from outside hospital, patient never had an elevated white count and never ran a fever. Did receive at least 2 L of IV fluids and 3 days of Rocephin. Urine cultures at the outside hospital resulted as negative. Will await results of chest x-ray and urine studies and treat if need be. CKD 3: BUN and creatinine worse today. Gentle IVF and recheck showed no real improvement. Will give another liter of IVF, most likely related to the patient's decreased oral intake, despite our best efforts to get her to eat and drink, superimposed upon CKD. No previously diagnosed renal disease however BUN and creatinine greatly elevated at outside hospital with suspected CKD 3. Anemia: Unexpected decrease in hemoglobin yesterday, down to 7.2, however patient was hemodynamically stable and asymptomatic. Recheck H&H today and hemoglobin has improved to 7.9. Yesterday's value was likely an issue of lab variability and not an accurate hemoglobin level. Most likely anemia of chronic disease and related to her chronic kidney disease. Leukopenia, borderline neutropenia: Slightly improved, continue to monitor. Patient will need to further work-up as an outpatient. Debility: Stable. Protein calorie malnutrition: Have started supplements with meals and multivitamin. All records, vitals, labs and medications were reviewed. No other issues per p atient, nursing or therapy. Objective - Exam Narrative Exam: MUSCULOSKELETAL SPECIALTY EXAM CONSTITUTIONAL: Well developed, well nourished, appropriately groomed, thin RESPIRATORY: Clear to auscultation bilaterally, no increased work of breathing CARDIOVASCULAR: Regular Rate/ Rhythm, no swelling, edema or tenderness in BUE or BLE. All extremities warm. GI: + bowel sounds, soft, NTTP, nondistended. INTEGUMENTARY: Normal, no lesion, rash, masses or bruising noted in extremities. MUSCULOSKELETAL: BUE and BLE normal without defect, crepitus, subluxation, effusion, arthritic changes or TTP. BUE 4+/5, good ROM, with normal tone. BLE 4+/5 good ROM, with normal tone NEURO: Sensation intact in all extremities. No tremor noted in 4 extremities. Patient takes prolonged time with activities and has decreased memory of directions. POSTURE and GAIT: Sitting posture good. Balance is fair, gait is fairly reasonable with occasional loss of balance. PSYCH: Alert, oriented x3, affect appears blunted. Insight impaired on deeper questioning. - Constitutional Vitals: Vital Signs - 12hr 03/08/21 03/08/21 03:54 07:31 Temperature 99.7 F H 99.1 F Pulse Rate 84 73 Respiratory 16 18 Rate Blood Pressure 145/79 Blood Pressure 130/83 [Right] O2 Sat by Pulse 98 99 Oximetry - Allied health notes Allied health notes reviewed: nursing, PT, ST, OT FIMS assessment as documented by PT/OT/ST: Social interaction/Memory/Problem solving Social Interaction FIM Score 2. Maximal Assistance (Appropriate 25-49% or needs restraint.) Memory FIM Score 2. Maximal Assistance (Recognizes and remembers 25-49%.) Problem Solving FIM Score 2. Maximal Assistance (Solves problems 25-49% or needs restraint.) Transfers Mode of Locomotion: Wheelchair Bed/Chair/Wheelchair Transfers 4. Minimal Assistance (Patient = 75% or more. FIM Score Needs touching.) Toilet Transfers FIM Score 4. Minimal Assistance (Patient = 75% or more. Needs touching.) Locomotion- walk/wheelchair Ambulation Distance 40 Dressing-lower body Patient retrieves clothing No items: Lower Body Dressing FIM Score 5. Supv./Set-Up ([place] sets out clothes or applies pros./orth.) - Labs CBC & Chem 7: 03/08/21 09:44 03/08/21 06:41 Labs: Laboratory Results - last 72 hr 03/05/21 03/05/21 03/05/21 06:46 14:08 14:08 WBC RBC Hgb Hct MCV MCH MCHC RDW Plt Count Lymph % (Auto) [place] % (Auto) Eos % (Auto) Baso % (Auto) Lymph # (Auto) [place] # (Auto) Eos # (Auto) Baso # (Auto) Add Manual Diff Complete Total Counted 100 Seg Neutrophils % Seg Neuts % (Manual) 45.0 Lymphocytes % (Manual) 47.0 H Monocytes % (Manual) 6.0 Eosinophils % (Manual) 2.0 Nucleated RBC % Not Reportable Seg Neutrophils # Seg Neutrophils # Man 1.1 L Band Neutrophils # 0.0 Lymphocytes # (Manual) 1.2 Abs React Lymphs (Man) 0.0 Monocytes # (Manual) 0.2 Eosinophils # (Manual) 0.1 Basophils # (Manual) 0.0 Metamyelocytes # 0.0 Myelocytes # 0.0 Promyelocytes # 0.0 Blast Cells # 0.0 WBC Morphology Not Reportable Hypersegmented Neuts Not Reportable Hyposegmented Neuts Not Reportable Hypogranular Neuts Not Reportable Smudge Cells Not Reportable Toxic Granulation Not Reportable Toxic Vacuolation Not Reportable Dohle Bodies Not Reportable Pelger-Huet Anomaly Not Reportable Lesley Rods Not Reportable Platelet Estimate Consistent w auto Clumped Platelets Not Reportable Plt Clumps, EDTA Not Reportable Large Platelets Not Reportable Giant Platelets Not Reportable Platelet Satelliting Not Reportable Plt Morphology Comment Not Reportable RBC Morphology Normal Dimorphic RBCs Not Reportable Polychromasia Not Reportable Hypochromasia Not Reportable Poikilocytosis Not Reportable Anisocytosis Not Reportable Microcytosis Not Reportable Macrocytosis Not Reportable Spherocytes Not Reportable Pappenheimer Bodies Not Reportable Sickle Cells Not Reportable Target Cells Not Reportable Tear Drop Cells Not Reportable Ovalocytes Not Reportable Helmet Cells Not Reportable [place] Bodies Not Reportable [place] Rings Not Reportable [place] Cells Not Reportable Bite Cells Not Reportable Crenated Cell Not Reportable Elliptocytes Not Reportable Acanthocytes (Spur) Not Reportable Rouleaux Not Reportable Hemoglobin C Crystals Not Reportable Schistocytes Not Reportable Malaria parasites Not Reportable Artemio Bodies Not Reportable Hem Pathologist Commnt No Sodium Potassium Chloride Carbon Dioxide Anion Gap BUN Creatinine Estimated GFR BUN/Creatinine Ratio Glucose Calcium Ferritin 478.3 H Vitamin B12 831.0 Folate 03/05/21 03/07/21 03/07/21 14:08 07:00 07:00 WBC 3.1 L RBC 2.54 L Hgb 7.2 L Hct 21.6 L MCV 85 MCH 29 MCHC 34 RDW 15.1 Plt Count 162 Lymph % (Auto) 45.8 H [place] % (Auto) 13.1 H Eos % (Auto) 1.4 Baso % (Auto) 1.0 Lymph # (Auto) 1.4 [place] # (Auto) 0.4 Eos # (Auto) 0.0 Baso # (Auto) 0.0 Add Manual Diff Total Counted Seg Neutrophils % 38.7 L Seg Neuts % (Manual) Lymphocytes % (Manual) Monocytes % (Manual) Eosinophils % (Manual) Nucleated RBC % Seg Neutrophils # 1.2 L Seg Neutrophils # Man Band Neutrophils # Lymphocytes # (Manual) Abs React Lymphs (Man) Monocytes # (Manual) Eosinophils # (Manual) Basophils # (Manual) Metamyelocytes # Myelocytes # Promyelocytes # Blast Cells # WBC Morphology Hypersegmented Neuts Hyposegmented Neuts Hypogranular Neuts Smudge Cells Toxic Granulation Toxic Vacuolation Dohle Bodies Pelger-Huet Anomaly Lesley Rods Platelet Estimate Clumped Platelets Plt Clumps, EDTA Large Platelets Giant Platelets Platelet Satelliting Plt Morphology Comment RBC Morphology Dimorphic RBCs Polychromasia Hypochromasia Poikilocytosis Anisocytosis Microcytosis Macrocytosis Spherocytes Pappenheimer Bodies Sickle Cells Target Cells Tear Drop Cells Ovalocytes Helmet Cells [place] Bodies [place] Rings [place] Cells Bite Cells Crenated Cell Elliptocytes Acanthocytes (Spur) Rouleaux Hemoglobin C Crystals Schistocytes Malaria parasites Artmeio Bodies Hem Pathologist Commnt Sodium 138 Potassium 4.0 Chloride 108.5 H Carbon Dioxide 21 L Anion Gap 13 BUN 33 H Creatinine 1.9 H Estimated GFR 32 BUN/Creatinine Ratio 17 Glucose 101 H Calcium 9.6 Ferritin Vitamin B12 Folate 17.88 03/08/21 06:41 WBC RBC Hgb Hct MCV MCH MCHC RDW Plt Count Lymph % (Auto) [place] % (Auto) Eos % (Auto) Baso % (Auto) Lymph # (Auto) [place] # (Auto) Eos # (Auto) Baso # (Auto) Add Manual Diff Total Counted Seg Neutrophils % Seg Neuts % (Manual) Lymphocytes % (Manual) Monocytes % (Manual) Eosinophils % (Manual) Nucleated RBC % Seg Neutrophils # Seg Neutrophils # Man Band Neutrophils # Lymphocytes # (Manual) Abs React Lymphs (Man) Monocytes # (Manual) Eosinophils # (Manual) Basophils # (Manual) Metamyelocytes # Myelocytes # Promyelocytes # Blast Cells # WBC Morphology Hypersegmented Neuts Hyposegmented Neuts Hypogranular Neuts Smudge Cells Toxic Granulation Toxic Vacuolation Dohle Bodies Pelger-Huet Anomaly Lesley Rods Platelet Estimate Clumped Platelets Plt Clumps, EDTA Large Platelets Giant Platelets Platelet Satelliting Plt Morphology Comment RBC Morphology Dimorphic RBCs Polychromasia Hypochromasia Poikilocytosis Anisocytosis Microcytosis Macrocytosis Spherocytes Pappenheimer Bodies Sickle Cells Target Cells Tear Drop Cells Ovalocytes Helmet Cells [place] Bodies [place] Rings Hussein Cells Bite Cells Crenated Cell Elliptocytes Acanthocytes (Spur) Rouleaux Hemoglobin C Crystals Schistocytes Malaria parasites Artemio Bodies Hem Pathologist Commnt Sodium 138 Potassium 4.0 Chloride 111.2 H Carbon Dioxide 20 L Anion Gap 11 BUN 37 H Creatinine 1.8 H Estimated GFR 34 BUN/Creatinine Ratio 21 Glucose 115 H Calcium 9.3 Ferritin Vitamin B12 Folate Assessment and Plan Hypertension: Continue medication. Monitor blood pressure. Adjust medications as needed for normotension. Hold for hypotension. Goal SBP <140. Have started Coreg in addition to amlodipine. Monitor and adjust as needed CKD 3: Gentle IVF. Monitor renal function and avoid nephrotoxic medications. Consider nephrology consult if needed. Work-up at outside hospital considered diuretic use prior to admission to be main culprit. Patient previously with unknown CKD so no baseline creatinine on record. On admission to outside hospital, BUN 70, creatinine 4.01. Mild fever: Work-up in progress, awaiting results on urine studies and chest x- ray. Anemia: Lab values are consistent with anemia of chronic disease, likely related to CKD. Monitor and consider transfusion for Hgb <7. Leukopenia, borderline neutropenia: Records from outside hospital showed absolute neutrophils at 1.9, slightly decreased here. We will continue to monitor and consider neutropenic precautions if she continues to drop. Patient needs to have further work-up with hematology as an outpatient. Protein calorie malnutrition: Supplements and multivitamin started. Patient stated that she does not like the food available at the hospital and restated that to me again today however in talking with nursing if they set up the tray for her she eats everything on the plate. If they do not set it up for her she ends up drifting back to sleep, almost like she cannot work out the issues with opening the tray and the silverware etc. 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 Patient likely has a history of dementia which was not previously disclosed and based on what I am seeing its likely at least moderate in nature. Contacted daughter and she states that patient has been in a sudden decline since Dec 2020. Would recommend follow up with neurology for further workup. ADL dysfunction: OT will work on improving ability to perform ADLs (including assistive devices) to increase independence and decrease caregiver burden and improve functional transfers and mobility training. Difficulty walking: PT will work on gait training and proper use of assistive devices and advance as appropriate to use of stairs and outside ambulation on uneven surfaces. Unsteadiness on feet: PT will work on improving static and dynamic sitting and standing balance as well as proper use of assistive devices to decrease risk of falls. Abnormality of gait: PT will work to improve safety and efficiency of gait through neuromotor training and gait training along with instruction on proper use of assistive devices. Muscle weakness: PT & OT will work on strengthening exercises to improve functional strength including mixture of closed and open kinetic chain exercises . Debility: PT & OT will work on improving overall functional status to improve participation with ADLs, mobility and social involvement. Fatigue: PT & OT will work on improving endurance through aerobic exercises and therapeutic activity while monitoring patients tolerance for activity and vital signs as needed. DVT ppx: Heparin 3 times daily Pain: Continue physical modalities in therapy and pain medications as needed to achieve functional pain control. Sleep: Monitor and address as needed. Bowel: Monitor and address as needed. Appetite: Monitor and address as needed. Discharge planning: Pending therapy progress and care plan meeting. Will continue discussion with therapy team, SW, patient and family. Plan to discharge by the end of the week home with supervision or to a memory care depending on the family's ability to provide appropriate level of care. Restrictions/ Precautions: Falls WB status: FWB Functional Hx: ADLs: Independent Cognition: Independent Mobility: No AD Barriers to Discharge: Decreased mobility and ability to perform self care, balance deficits, weakness Estimated Length of Stay: 710 days Discharge Destination: Home with family versus memory care/SNF
[2021-03-08] MEDS ORDERED: SODIUM CHLORIDE 0.9% 1000 ML 1,000 ML IV SCH (08:30)
[2021-03-08] MEDS: carvediloL 3.125 MG TAB PO SCH ×2 (09:08→22:02)
[2021-03-08] MEDS: amLODIPine 10 MG TAB PO SCH (09:08)
[2021-03-08] MEDS: MULTIVITAMINS,THER W-MINERALS TAB PO SCH (09:08)
[2021-03-08 10:09] LABS: Hematocrit 23.8 % (30.3-42.9); Hemoglobin 7.9 gm/dl (10.1-14.3)
--- NOTE | 2021-03-08 15:26 | XRay Report ---
CHEST 2 VIEWS INDICATION: Fever. COMPARISON: None FINDINGS: SUPPORT DEVICES: None. HEART: Within normal limits. LUNGS/PLEURA: Please note that the frontal image is flipped and labeled incorrectly. No acute air spa ce or interstitial disease. No pneumothorax. ADDITIONAL FINDINGS: None. IMPRESSION: 1. No acute findings. Signer Name: Tigre Burrell MD Signed: 03/08/2021 3:22 PM Workstation Name: [id number]
[2021-03-08 18:36] LABS: Bilirubin,Urine NEG (Negative); Blood,Urine NEG (Negative); Color,Urine Yellow (Yellow); Mucus,Urine FEW /HPF; Protein,Urine <15 mg/dL mg/dL (Negative); Urobilinogen,Urine < 2.0 mg/dL (<2.0)
[2021-03-09] MEDS: MULTIVITAMINS,THER W-MINERALS TAB PO SCH (08:28)
[2021-03-09] MEDS: carvediloL 3.125 MG TAB PO SCH (08:28)
[2021-03-09] MEDS: amLODIPine 10 MG TAB PO SCH (08:28)
[2021-03-09 09:14] LABS: Hematocrit 22.1 % (30.3-42.9); Hemoglobin 7.4 gm/dl (10.1-14.3); Mean Corpuscular HGB Conc 33 % (30-34); Mean Corpuscular Volume 85 fl (79-97); Platelet Count 154 K/mm3 (140-440); Red Blood Count 2.59 M/mm3 (3.65-5.03); Red Cell Distribution Width 15.4 % (13.2-15.2)
[2021-03-09 11:11] LABS: RBC Morphology Normal; Smudge Cells Few; Total Cells Counted 100
[2021-03-09 11:12] LABS: Platelet Estimate Consistent w Auto
--- NOTE | 2021-03-09 11:56 | Discharge Summary ---
Providers - Providers Date of Admission: 03/02/21 18:36 Date of discharge: 03/09/21 Attending physician: ASHER GALVEZ III, MD 03/02/21 14:22 Occupational Therapy Evaluate and Treat [CONS] Routine Comment: Reason For Exam: ADL dysfunction Physical Therapy Evaluation and Treat [CONS] Routine Comment: Reason For Exam: Mobility Dysfunction 03/02/21 14:25 Consult to Case Management [CONS] Routine Services Needed at Discharge: Home Health Services Notified:: cm notified 03/06/21 09:11 Speech Therapy Evaluation and Treat [CONS] Routine Reason For Exam: Assess/Treat Speech/Cognition Primary care physician: MANAGER PRODUCT Hospitalization Reason for admission: Debility and difficulty walking Condition: Fair Hospital course: 61-year-old female who experienced left-sided flank pain with onset about 2 weeks prior to presentation to outside hospital on February 26. Patient apparently had intermittent nausea and vomiting and decreased appetite and has felt unsteady on her feet. She was admitted, worked up and treated for pyelonephritis. However all cultures came back negative. CT head was negative for any acute findings. CT abdomen pelvis showed no acute findings or abnormalities to account for flank pain. Patient was seen by therapy who felt she was a good candidate for rehabilitation as she was showing significant decline in her ambulation. Patient lives with her daughter and is anxious to return to home as quickly as possible as she has a grandchild. Patient is now stating that she does not believe she has any problems with walking and wants to go home as soon as possible. Hypertension: Patient remains slightly elevated greater than goal of 140/90 at times. No episodes of hypotension. Better after starting Coreg, continue to monitor for improvement in blood pressure goals. Patient will need to monitor blood pressure on a regular basis and report this to her PCP for further monitoring and adjustment of medications. Dementia, likely moderate: Based on my evaluation as well as speech therapy testing, patient is consistent with moderate level of dementia. The patient's cognitive condition was not fully elucidated by referring hospital prior to the patient coming to acute inpatient rehab, if it had we likely would not have been able to offer her a bed. Patient will need 24/7 supervision at home. After speaking with the daughter, she states that this was a fairly sudden onset and the patient was previously independent, driving and working prior to an episode in December. Apparently the patient has not undergone a full work-up for this episode but was discharged home by the ER. I would recommend a full outpatient neurology consult and work-up with a neurologist of the family's choice. I did have a chance to review the CT head from the outside hospital which was not elucidating as to any cause of the condition. I have discussed with the hari bass that patient will need a neurology work-up in order to both diagnose and rule out any other reversible causes. Mild fever: Urine and CXR ordered and both were negative. Patient has not had any further elevated temperatures. T-max was 99.7. Looked back over records from outside hospital, patient never had an elevated white count and never had a fever. Did receive at least 2 L of IV fluids and 3 days of Rocephin. Urine cultures at the outside hospital resulted as negative. Patient seems to be doing much better today without any issues or complaints. CKD 3: BUN and creatinine improved today after a second liter of IV fluids. Most likely related to the patient's decreased oral intake, despite our best efforts to get her to eat and drink, superimposed upon CKD. No previously diagnosed renal disease however BUN and creatinine greatly elevated at outside hospital with suspected CKD 3. Would recommend follow-up closely with PCP for monitoring of renal function. BUN has ranged from 2036 with the latest value at 30, and creatinine 1.3-1.9 with the latest value at 1.5. Will attempt to give her more fluid prior to the patient's discharge as the daughter will be here later as holli skelton. Anemia: Unexpected decrease in hemoglobin down to 7.2, however patient was hemodynamically stable and asymptomatic. Recheck H&H today and hemoglobin has improved to 7.9. Anemia of chronic disease and related to her chronic kidney disease. Hemoglobin ranged from 8.8-7.2 with the most recent value at 7.4 on day of discharge. Leukopenia, borderline neutropenia: Slightly improved, continue to monitor. Patient will need to further work-up as an outpatient with hematology which we do not have available. WBCs ranged from 2.5-3.1 with the most recent value at 2.7. Neutrophil count stayed above 1 with the most recent manual count at 1.5. Debility: Stable. Protein calorie malnutrition: Have started supplements with meals and multivitamin. As far as therapy, the patient is able to ambulate with close standby contact- guard. She will need supervision going home and will need to have someone assist her with ambulating around the house. With utilization of a rolling walker the patient had poor control over the device and had difficulty problem solving not running into objects and then when she did correcting herself without falling over. Because of this she is at greater risk for having a fall with injury if she is utilizing a rolling walker alone or even with a skilled therapist. When she is walking freely without any assistive device and with a therapist next to her she is able to ambulate fairly well with some occasional loss of balance but is sometimes able to correct herself and other times has to be called by the therapist. Due to these issues, the patient should be able to ambulate short distances in the home with assistance and needs to be supervised 16/06. As far as ADLs, the patient is able to perform ADLs on her own with supervision but does take prolonged periods of time to do so. We did find that in order for her to eat we had to set up her meals and encourage her otherwise she often times just would not even touch food that was brought in and placed on her bedside table. Because of this, we would recommend supervised feedings with encouragement and monitoring her oral intake of both food and fluids in order to maintain her fluid status. She may need to follow-up with a malthouse laborer as an outpatient but this can be determined by her PCP at follow-up with follow-up labs. I have relayed this information to the patient's daughter who is a ROCK CUTTER at a long-term facility in the memory care unit. She is stated that she wants to take her mother home for an initial trial of working with the patient at home and caring for in that environment. At some point the patient may be more appropriate for a memory care unit if no reversible causes are found for the dementia. Depending upon the patient's oral intake, she may also become eligible for hospice care or some sort of artificial feeding such as a PEG tube depending upon the patient and family's wishes. However, we are not at that junction yet and would give the patient a chance to continue to eat with encouragement from family prior to going down that path. We have ordered home health to assist the patient with further recovery including nurse, aide, PT and OT. Patient would benefit from a shower chair for bathing to decrease her risk for falls. This also has been ordered for the patient. Disposition: DC/TX HOME UNDER HOME [facility] Final Discharge Diagnosis (Prints w/discharge instructions): Debility, Dementia, Chronic Kidney Disease, Hypertension Time spent for discharge: >38 minutes Core Measure Documentation - Palliative Care Palliative Care/ Comfort Measures: Not Applicable - Core Measures Any of the following diagnoses?: none Exam - Physical Exam Narrative exam: MUSCULOSKELETAL SPECIALTY EXAM CONSTITUTIONAL: Well developed, well nourished, appropriately groomed, thin RESPIRATORY: Clear to auscultation bilaterally, no increased work of breathing CARDIOVASCULAR: Regular Rate/ Rhythm, no swelling, edema or tenderness in BUE or BLE. All extremities warm. GI: + bowel sounds, soft, NTTP, nondistended. INTEGUMENTARY: Normal, no lesion, rash, masses or bruising noted in extremities. MUSCULOSKELETAL: BUE and BLE normal without defect, crepitus, subluxation, effusion, arthritic changes or TTP. BUE 4+/5, good ROM, with normal tone. BLE 4+/5 good ROM, with normal tone NEURO: Sensation intact in all extremities. No tremor noted in 4 extremities. Patient takes prolonged time with activities and has decreased memory of directions. POSTURE and GAIT: Sitting posture good. Balance is fair, gait is fair with occasional loss of balance. PSYCH: Alert, affect appears blunted. Insight impaired on deeper questioning. - Constitutional Vitals: Temp Pulse Resp BP Pulse Ox 98.3 F 72 18 153/91 100 03/09/21 07:10 03/09/21 07:10 03/09/21 07:10 03/09/21 07:10 03/09/21 07:10 Plan Activity: no driving until cleared by PCP, up only with assistance, fall precautions Diet: low cholesterol, low salt Special Instructions: record daily BP diary, home health RN Durable Medical Equipment Needed Upon Discharge: other (shower chair) Care Plan Goals: Patient will need to follow-up with PCP after discharge for monitoring of blood pressure, renal function, and referrals to other specialists. At this point based on the patient's conditions would recommend a referral to neurologist of the family's choice for further work-up and investigation of the patient's apparent dementia. Would also recommend consultation with hematology to investigate the patient's leukopenia. And if renal function does not improve with oral intake, would recommend follow- up with nephrology. Sail Maker at outside hospital suggested patient likely had acute exacerbation on chronic kidney disease stage III. Home health has been ordered and will assist with transition of the patient home. Daughter will be available for assistance with the patient. At some point, patient may be more appropriate for memory care if current condition does not resolve or gets worse. Follow up with: PRIMARY CARE, [Primary Care Provider] - 7 Days Prescriptions: amLODIPine 10 mg PO QDAY #30 tablet carvediloL [Coreg] 3.125 mg PO BID #60 tablet
[2021-03-09] MEDS ORDERED: SODIUM CHLORIDE 0.9% 500 ML 500 ML IV SCH (12:00)
[2021-03-09 15:34] VITALS: BP 143/74
== END 2021-03-09 16:15 | disposition home or self-care (01) | DRG 948 ==
LOC: UNDOADMIN 13:46 → 3A 13:46 → 3B 18:36
PROVIDERS: ADMIT Physical Medicine & Rehabilitation; ATTEND Physical Medicine & Rehabilitation
DX: R53.81 Other malaise (principal); E46 Unspecified protein-calorie malnutrition; I12.9 Hypertensive chronic kidney disease with stage 1 through stage 4 chronic kidney disease, or unspecified chronic kidney disease; N18.30 Chronic kidney disease, stage 3 unspecified; D70.9 Neutropenia, unspecified; Z82.49 Family history of ischemic heart disease and other diseases of the circulatory system; F03.90 Unspecified dementia, unspecified severity, without behavioral disturbance, psychotic disturbance, mood disturbance, and anxiety; D64.9 Anemia, unspecified
CPT/HCPCS: 36415; 71046; 80048; 80053; 81001; 82607; 82728; 82747; 83550; 85007; 85014; 85018; 85025; 87086; 97129; G0378; G0515-GN; J0360; J1644; J7030; J7040

== ENCOUNTER 2022-01-09 11:39 | Inpatient (IN) | payer BC, OTHER ==
[2022-01-09] MEDS ORDERED: SODIUM CHLORIDE 0.9% 1000 ML IV SOLN IV ONE (11:47)
[2022-01-09] MEDS ORDERED: PIPERACILLIN/TAZOBACTAM 3.375 3.375 GM/50 ML BAG IV ONE (11:48)
[2022-01-09] MEDS ORDERED: ACETAMINOPHEN 650 MG RECT SUPP PR ONE (11:48)
--- NOTE | 2022-01-09 11:57 | Emergency Department Report ---
ED General Adult HPI - General Chief complaint: Dyspnea/Respdistress Stated complaint: UNRESPONSIVE Time Seen by Provider: 01/09/22 11:47 Source: EMS Mode of arrival: Stretcher Limitations: No Limitations - History of Present Illness Initial comments: Patient is 62 years old female severely debilitated and contracted with history of dementia, hypertension and a recent diagnosis of COVID-19. Patient brought to the emergency room from a local custodial for evaluation of altered mental status, difficulty in breathing and low oxygen saturation. EMS stated that patient was found this morning by the custodial staff unresponsive with an oxygen saturation of 81% improved to 95% on a nonrebreather. Upon arrival to the ER patient is obtunded however she is responding to voice stimuli but she is not talking. Patient found to be febrile with a temperature of 101.2, tachycardic at 133 bpm. Sepsis protocol immediately initiated and patient rece ived normal saline 30 mils per KG. Patient started on Zosyn and also given Tylenol. -: This morning - Related Data Previous Rx's Medication Instructions Recorded Last Taken Type amLODIPine 10 mg PO QDAY #30 tablet 03/09/21 Unknown Rx carvediloL [Coreg] 3.125 mg PO BID #60 tablet 03/09/21 Unknown Rx Allergies Allergy/AdvReac Type Severity Reaction Status Date / Time No Known Allergies Allergy Verified 01/09/22 11:43 ED Review of Systems ROS: Stated complaint: UNRESPONSIVE Other details as noted in HPI Comment: Unobtainable due to pts medical conditions ED Past Medical Hx - Past Medical History Hx Hypertension: Yes Hx HIV: No - Social History Smoking Status: Never Smoker - Medications Home Medications: Home Medications Medication Instructions Recorded Confirmed Last Taken Type amLODIPine 10 mg PO QDAY #30 tablet 03/09/21 Unknown Rx carvediloL [Coreg] 3.125 mg PO BID #60 tablet 03/09/21 Unknown Rx ED Physical Exam - General Limitations: No Limitations General appearance: alert, in distress - Head Head exam: Present: atraumatic, normocephalic, normal inspection - ENT ENT exam: Present: mucous membranes dry - Neck Neck exam: Present: normal inspection - Respiratory Respiratory exam: Present: respiratory distress, rales, accessory muscle use, decreased breath sounds. Absent: wheezes, rhonchi - Cardiovascular Cardiovascular Exam: Present: tachycardia - GI/Abdominal GI/Abdominal exam: Present: soft, normal bowel sounds, other (PEG tube in place). Absent: distended, tenderness - Rectal Rectal exam: Present: other (Decubitus ulcer.) - Extremities Exam Extremities exam: Present: other (Severely contracted.) - Neurological Exam Neurological exam: Present: altered - Skin Skin exam: Present: warm, dry ED Course Vital Signs 01/09/22 01/09/22 01/09/22 11:40 11:42 12:42 Temperature 101.7 F H Pulse Rate 130 H 132 H 132 H Respiratory 47 H 37 H Rate Blood Pressure 142/85 157/91 [Left] O2 Sat by Pulse 80 L 98 100 Oximetry 01/09/22 01/09/22 13:00 14:00 Temperature 100 F H Pulse Rate 135 H 136 H Respiratory 35 H 36 H Rate Blood Pressure 170/90 169/92 [Left] O2 Sat by Pulse 95 97 Oximetry ED Medical Decision Making - Lab Data Result diagrams: 01/09/22 12:50 01/09/22 12:50 - EKG Data -: EKG Interpreted by Nm EKG shows normal: sinus rhythm Rate: tachycardia - Radiology Data Radiology results: report reviewed - Medical Decision Making Patient is 62 years old female severely debilitated and contracted with history of dementia, hypertension and a recent diagnosis of COVID-19. Patient brought to the emergency room from a local custodial for evaluation of altered mental status, difficulty in breathing and low oxygen saturation. EMS stated that patient was found this morning by the custodial staff unresponsive with an oxygen saturation of 81% improved to 95% on a nonrebreather. Upon arrival to the ER patient is obtunded however she is responding to voice stimuli but she is not talking. Patient found to be febrile with a temperature of 101.2, tachycardic at 133 bpm. Sepsis protocol immediately initiated and patient received normal saline 30 mils per KG. Patient started on Zosyn and also given Tylenol. EKG shows sinus tachycardia. Chest x-ray showed evidence of pulmonary inf iltrate most likely consistent with atypical pneumonia given recent diagnosis of COVID-19. Labs reviewed and showed leukopenia and white blood cells of 2000. Sodium 154 creatinine is 2.2 and BUN of 95. I discussed the patient with Dr. Tse, he agreed to admit the patient to medical service for further management. Critical Care Time: Yes Critical care time in (mins) excluding proc time.: 45 Critical care attestation.: If time is entered above; I have spent that time in minutes in the direct care of this critically ill patient, excluding procedure time. ED Disposition Clinical Impression: Acute respiratory failure with hypoxia, Bilateral pneumonia, Suspected COVID-19 virus infection, Acute renal failure, Acute hypernatremia Disposition: 09 ADMITTED INPATIENT Is pt being admited?: Yes Condition: Stable Instructions: Bacterial Pneumonia (ED)
--- NOTE | 2022-01-09 12:22 | XRay Report ---
CHEST 1 VIEW INDICATION: SOB. COMPARISON: 03/08/2021 FINDINGS: Support devices: None. Heart: Mild cardiomegaly Lungs/Pleura: There is mild interstitial prominence in both lower lung zones which probably represent s congestive changes. Early infiltrates are thought less likely. There is no evidence for consolidati on, pleural effusion or pneumothorax. Additional findings: None. IMPRESSION: Mild cardiomegaly and pulmonary venous congestion but no CHF. Signer Name: Diogo Morgan Jr, MD Signed: 01/09/2022 12:18 PM Workstation Name: [id number]
[2022-01-09 13:42] LABS: Hematocrit 22.7 % (30.3-42.9); Hemoglobin 6.9 gm/dl (10.1-14.3); Mean Corpuscular HGB Conc 30 % (30-34); Mean Corpuscular Volume 90 fl (79-97); Platelet Count 160 K/mm3 (140-440); Red Blood Count 2.52 M/mm3 (3.65-5.03); Red Cell Distribution Width 16.8 % (13.2-15.2)
[2022-01-09 13:59] LABS: Alanine Aminotransferase 31 units/L (7-56); BUN/Creatinine Ratio 43; Blood Urea Nitrogen 95 mg/dL (7-17); Calcium 6.9 mg/dL (8.4-10.2); Hemolysis Index 18
[2022-01-09 14:09] LABS: Bilirubin,Direct < 0.2 mg/dL (0-0.2)
--- NOTE | 2022-01-09 14:24 | History and Physical Report ---
History of Present Illness Chief complaint: She is getting worse History of present illness: 62 YO Female Assisted Facility Resident at [facility] with Vascular Dementia, Cerebral Atherosclerosis, Malnutrition, Debility, Coronavirus Infection presents ED for evaluation. Patient is confused with diminished cognition at the time my evaluation is unable to provide history. Patient history taken EMS staff, ED staff, as well as retirement facility staff. As per staff the patient was found to have increased confusion and weakness today. Patient was found to have a pulse oximetry in the 80s vascular nursing facility staff. EMS was notified and upon arrival the patient was found to be in distress and subsequent transported to [facility] for further care and evaluation of the aforementioned symptoms. The patient was seen and evaluated in the emergency department. All lab and imaging studies reviewed. The patient was found to have a pulse oximetry of 80% on room oxygen which is consistent with acute hypoxemic respiratory failure. Patient was also found to be febrile with temperature of 101.2 F, heart rate in the 130s, with respirations in the 40s. Patient was found to be using accessory muscles to breathe. Chest x-ray revealed bilateral pneumonia complicated by sepsis, as well as toxic metabolic encephalopathy. Patient admitted to medical floor and initiated on pneumonia protocol, coronavirus protocol as well as sepsis protocol. Patient is unresponsive at time of my evaluation but has a positive gag reflex and is able to protect her airway without difficulty. No prior admission for review. All medication listed at time of admission has been reconciled. Advanced care planning conducted in ED. Past History Past Medical History: hypertension, other (See HPI) Past Surgical History: No surgical history, Other (Reviewed) Social history: single. denies: smoking, alcohol abuse, prescription drug abuse Family history: diabetes, hypertension Medications and Allergies Allergies Allergy/AdvReac Type Severity Reaction Status Date / Time No Known Allergies Allergy Verified 01/09/22 11:43 Home Medications Medication Instructions Recorded Confirmed Last Taken Type amLODIPine 10 mg PO QDAY #30 tablet 03/09/21 Unknown Rx carvediloL [Coreg] 3.125 mg PO BID #60 tablet 03/09/21 Unknown Rx Review of Systems ROS unobtainable: due to mental status Exam - Constitutional Vitals: Temp Pulse Resp BP Pulse Ox 100 F H 136 H 36 H 169/92 97 01/09/22 13:00 01/09/22 14:00 01/09/22 14:00 01/09/22 14:00 01/09/22 14:00 General appearance: Present: mild distress, cachectic - EENT Eyes: Present: PERRL ENT: hearing decreased, other (Dry oral mucosa) - Neck Neck: Present: supple, normal ROM - Respiratory Respiratory effort: normal Respiratory: bilateral: diminished, rhonchi - Cardiovascular Rhythm: other (Tachycardia) Heart Sounds: Present: S1 & S2. Absent: rub, click - Extremities Extremities: pulses symmetrical Peripheral Pulses: abnormal (Capillary refill greater than 3.5 seconds) - Abdominal General gastrointestinal: Present: soft, non-tender, non-distended, normal bowel sounds Female genitourinary: Present: normal - Integumentary Integumentary: Present: clear, warm, dry - Musculoskeletal Musculoskeletal: generalized weakness - Psychiatric Psychiatric: no appropriate mood/affect, no intact judgment & insight, no memory intact - Neurologic Neurologic: CNII-XII intact, no focal deficits, moves all extremities, no gait normal Results - Labs CBC & Chem 7: 01/09/22 12:50 01/09/22 12:50 Labs: Abnormal lab results 01/09/22 01/09/22 Range/Units 12:50 12:50 WBC 2.0 L (4.5-11.0) K/mm3 RBC 2.52 L (3.65-5.03) M/mm3 Hgb 6.9 L (10.1-14.3) gm/dl Hct 22.7 L (30.3-42.9) % MCH 27 L (28-32) pg RDW 16.8 H (13.2-15.2) % Sodium 154 H (137-145) mmol/L Potassium 5.3 H (3.6-5.0) mmol/L Chloride 124.0 H (98-107) mmol/L Carbon Dioxide 17 L (22-30) mmol/L BUN 95 H (7-17) mg/dL Creatinine 2.2 H (0.6-1.2) mg/dL Glucose 177 H (65-100) mg/dL Calcium 6.9 L (8.4-10.2) mg/dL AST 75 H (5-40) units/L Albumin 2.0 L (3.9-5) g/dL Assessment and Plan - Patient Problems (1) Sepsis Current Visit: Yes Status: Acute Qualifiers: Acute respiratory failure type: with hypoxia Plan to address problem: Sepsis protocol: Chest x-ray, CBC, CMP, urinalysis, IV antibiotic therapy, IV fluid resuscitation therapy, monitor urine output every shift, monitor fluid balance, maintain mean arterial pressure greater than equal 65, serial lactic ac id level, blood culture, (2) Acute respiratory failure with hypoxia Current Visit: Yes Status: Acute Plan to address problem: Chest x-ray, supplemental oxygen, pulse oximetry, nebulizer therapy, pulmonary toilet. (3) Toxic metabolic encephalopathy Current Visit: Yes Status: Acute Plan to address problem: IV fluid resuscitation therapy, treat sepsis, seizure precautions, aspiration precautions, fall precautions, neuro check, (4) Acute kidney injury (KELSIE) with acute tubular necrosis (ATN) Current Visit: Yes Status: Acute Plan to address problem: IV fluid resuscitation therapy, BMP, repeat BMP in a.m. to monitor serum creatinine as well as GFR. (5) Coronavirus infection Current Visit: Yes Status: Acute Plan to address problem: Coronavirus protocol: IV antibiotic therapy, IV steroid therapy, vitamin C therapy, vitamin D therapy, zinc therapy, prophylactic anticoagulation. (6) Vascular dementia Current Visit: Yes Status: Acute Qualifiers: Dementia behavioral disturbance: without behavioral disturbance Qualified Code(s): F01.50 - Vascular dementia without behavioral disturbance Plan to address problem: Verbal prompting, verbal redirection, benzodiazepine therapy as clinically indicated. (7) Cerebral atherosclerosis Current Visit: Yes Status: Acute Plan to address problem: Risk factor reduction therapy, antiplatelet therapy as clinically indicated. (8) Malnutrition Current Visit: Yes Status: Acute Qualifiers: Malnutrition type: protein-calorie malnutrition Protein-calorie malnutrition severity: moderate Qualified Code(s): E44.0 - Moderate protein- calorie malnutrition Plan to address problem: Increase protein intake when awake and alert only, dietary supplementation. (9) Bilateral pneumonia Current Visit: Yes Status: Acute Plan to address problem: Pneumonia protocol: Chest x-ray, CBC, CMP, supplemental oxygen, pulse oximetry, nebulizer therapy, IV antibiotic therapy. (10) Metabolic acidosis Current Visit: Yes Status: Acute Plan to address problem: IV fluid resuscitation therapy, treat sepsis, supportive care. Repeat BMP in a.m. (11) DVT prophylaxis Current Visit: Yes Status: Acute Plan to address problem: SCD to bilateral lower extremities while in bed, prophylactic anticoagulation (12) Advance care planning Current Visit: Yes Status: Acute Plan to address problem: Disease education conducted, care plan discussed, diagnoses discussed, prognosis discussed, patient is full code. +30 minutes.
[2022-01-09] MEDS ORDERED: ALBUTEROL 2.5 MG/3 ML NEBU IH PRN (14:25)
[2022-01-09] MEDS ORDERED: DEXTROSE 50% IN WATER (25GM) 50 ML SYRINGE IV PRN (14:42)
[2022-01-09 14:43] LABS: Bacteria,Urine 1+ /HPF (Negative); Bilirubin,Urine NEG (Negative); Blood,Urine NEG (Negative); Color,Urine Yellow (Yellow); Mucus,Urine FEW /HPF; Urobilinogen,Urine < 2.0 mg/dL (<2.0)
[2022-01-09] MEDS ORDERED: DEXTROSE 10% *Hypoglycemia IV PRN (14:48)
[2022-01-09] MEDS ORDERED: HYDROmorphone 1 MG/1 ML INJ IV PRN (15:00)
[2022-01-09] MEDS ORDERED: ACETAMINOPHEN 325 MG TAB PO PRN (15:00)
[2022-01-09 15:11] LABS: Basophils % (Manual) 0 % (0.0-1.8); Eosinophils % (Manual) 0 % (0.0-4.3); Total Cells Counted 100
[2022-01-09 15:12] LABS: Platelet Estimate Consistent w Auto
--- NOTE | 2022-01-09 15:55 | Procedure Note ---
Date of procedure: 01/09/22 Pre-op diagnosis: sepsis Post-op diagnosis: same Procedure: Right internal jugular vein triple-lumen catheter under ultrasound guidance. The patient was prepped and draped in the usual sterile fashion. With the patient's nurse at bedside a timeout was taken to verify the correct patient, procedure and correct operative site. Local anesthesia obtained with 1% lidocaine. The Seldinger technique was utilized under ultrasound guidance to access the right internal jugular vein without difficulty. A seeker needle was advanced to the right internal jugular vein under ultrasound guidance difficulty. A guidewire was then advanced through the seeker needle into the right internal jugular vein and the seeker needle subsequently removed over the guidewire. A scalpel was used to incise the skin. A dilator was then placed over the guidewire to the right internal jugular vein and subsequently removed. A preflush triple-lumen catheter was then advanced his right internal jugular vein without difficulty and the guidewire subsequently removed. All 3 ports flush and draw with ease. A Biopatch was placed at the insertion site. 3-0 nylon suture was utilized to secure the central line in place. Postoperative chest x-ray revealed no pneumothorax and triple-lumen catheter in good position. Estimated blood loss minimal. Specimens none. Anesthesia: local Estimated blood loss: minimal Pathology: none Condition: critical Disposition: ICU Anesthesia: local Surgeon: PRINCE IVERSON Estimated blood loss: minimal Pathology: none Condition: stable
[2022-01-09] MEDS: AZITHROMYCIN/NS 500 MG/250 ML 500 MG/250 ML BAG IV SCH (15:58)
[2022-01-09] MEDS ORDERED: ONDANSETRON 4 MG/2 ML INJ IV PRN (16:00)
[2022-01-09] MEDS: INSULIN REGULAR, HUMAN 100 UNITS/1 ML SUB-Q SCH ×2 (16:27→23:15)
--- NOTE | 2022-01-09 16:48 | XRay Report ---
CHEST 1 VIEW 01/09/2022 3:37 PM INDICATION / CLINICAL INFORMATION: central line placement. COMPARISON: 01/09/2022 earlier in the day FINDINGS: SUPPORT DEVICES: Interval placement of right IJ CVL with tip projecting over the SVC HEART / MEDIASTINUM: Stable. LUNGS / PLEURA: No focal opacity. Stable interstitial changes. No pneumothorax. ADDITIONAL FINDINGS: No significant additional findings. IMPRESSION: 1. Central line in expected position. Signer Name: Geraldo Najera MD Signed: 01/09/2022 4:44 PM Workstation Name: [email or web address]
[2022-01-09] MEDS: cefTRIAXone/NS 2 GM/100 ML 2 GM/100 ML BAG IV SCH (17:16)
[2022-01-09] MEDS: ZINC SULFATE 220 MG CAP PO SCH (22:05)
[2022-01-09] MEDS: methylPREDNISolone Sod Succinate 40 MG/1 ML INJ IV SCH (22:05)
[2022-01-09] MEDS: ASCORBIC ACID 500 MG TAB PO SCH (22:05)
[2022-01-09] MEDS: HEPARIN 5,000 UNIT/1 ML VIAL SUB-Q SCH (22:05)
[2022-01-09] MEDS: ACETAMINOPHEN 325 MG TAB PO PRN (22:12)
[2022-01-09] MEDS: SODIUM CHLORIDE 0.45% 2,000 ML IV SCH (23:14)
[2022-01-10] MEDS: methylPREDNISolone Sod Succinate 40 MG/1 ML INJ IV SCH ×3 (05:23→21:07)
[2022-01-10] MEDS: SODIUM CHLORIDE 0.45% 2,000 ML IV SCH (05:57)
[2022-01-10 07:12] LABS: Hematocrit 25.9 % (30.3-42.9); Hemoglobin 7.9 gm/dl (10.1-14.3); Mean Corpuscular HGB Conc 31 % (30-34); Mean Corpuscular Volume 89 fl (79-97); Platelet Count 162 K/mm3 (140-440); Red Blood Count 2.92 M/mm3 (3.65-5.03); Red Cell Distribution Width 16.8 % (13.2-15.2)
[2022-01-10 07:30] LABS: Calcium 8.4 mg/dL (8.4-10.2)
--- NOTE | 2022-01-10 07:32 | Progress Note ---
Assessment and Plan Assessment and plan: #Sepsis -improving #COVID-19 infection #Pneumonia -Blood cultures NGTD so far; UCx negative -continue doxycycline and rocephin -continue steroids; vitamins for COVID infection not a candidate for remdesivir due to kidney function -ID following, assistance appreciated #Acute respiratory failure with hypoxia-improving -currently on 2LNC, will wean to RA as tolerated -continuous pulse ox -likely secondary to COVID PNA vs bacterial PNA -continue steroids day 1 of 10 #Acute metabolic encephalopathy-resolved #hx of Vascular dementia #Cerebral atherosclerosis -multifactorial; acute change likely secondary to infection -will continue to monitor #Acute kidney injury-worsening -SCr 3.1 today, 2.2 on admission; baseline was 1.3 02/2021 -Renal US and urine studies ordered -avoid nephrotoxins and will renally dose medications -Nephrology consulted #Metabolic acidosis -secondary to renal failure #Dysphagia -Currently with PEG tube -continue tube feeds -Nutrition consult #Severe protein-calorie malnutrition -albumin 2.0 -continue TF, Nutrition managing #Sacral decubitus ulcer -Continue wound care History Interval history: No acute events overnight per nursing. Patient currently on 10LNC. Confused. Hospitalist Physical - Physical exam Narrative exam: GENERAL: Cachexic. In no acute distress. HEENT: Venturi mask at 10LPM; Dry mucus membranes NECK: RIJ Vasc cath CHEST/LUNGS: CTAB on supplemental O2 HEART/CARDIOVASCULAR: RRR. No murmur, rubs or gallops appreciated. ABDOMEN: PEG tube. +BS. NT/ND. SKIN: No rashes noted. NEURO: Unable to assess. MUSCULOSKELETAL: No joint effusion EXTREMITIES: No cyanosis, clubbing or edema. PSYCH: Cooperative. - Constitutional Vitals: Temp Pulse Resp BP Pulse Ox 97.4 F L 105 H 18 132/81 100 01/10/22 04:12 01/10/22 04:12 01/10/22 04:12 01/10/22 04:12 01/10/22 04:12 General appearance: Present: mild distress, cachectic Results - Labs CBC & Chem 7: 01/10/22 06:16 01/12/22 06:05 Labs: Laboratory Last Values WBC 6.3 K/mm3 (4.5-11.0) 01/10/22 06:16 RBC 2.92 M/mm3 (3.65-5.03) L 01/10/22 06:16 Hgb 7.9 gm/dl (10.1-14.3) L 01/10/22 06:16 Hct 25.9 % (30.3-42.9) L 01/10/22 06:16 MCV 89 fl (79-97) 01/10/22 06:16 MCH 27 pg (28-32) L 01/10/22 06:16 MCHC 31 % (30-34) 01/10/22 06:16 RDW 16.8 % (13.2-15.2) H 01/10/22 06:16 Plt Count 162 K/mm3 (140-440) 01/10/22 06:16 Lymph % (Auto) Rn Radiation Oncology 01/10/22 06:16 Pope % (Auto) Rn Radiation Oncology 01/10/22 06:16 Eos % (Auto) Rn Radiation Oncology 01/10/22 06:16 Baso % (Auto) Rn Radiation Oncology 01/10/22 06:16 Lymph # (Auto) Rn Radiation Oncology 01/10/22 06:16 Pope # (Auto) Rn Radiation Oncology 01/10/22 06:16 Eos # (Auto) Rn Radiation Oncology 01/10/22 06:16 Baso # (Auto) Rn Radiation Oncology 01/10/22 06:16 Add Manual Diff Complete 01/09/22 12:50 Total Counted 100 01/09/22 12:50 Seg Neutrophils % Rn Radiation Oncology 01/10/22 06:16 Seg Neuts % (Manual) 71.0 % (40.0-70.0) H 01/09/22 12:50 Band Neutrophils % 1.0 % 01/09/22 12:50 Lymphocytes % (Manual) 24.0 % (13.4-35.0) 01/09/22 12:50 Reactive Lymphs % (Man) 0 % 01/09/22 12:50 Monocytes % (Manual) 4.0 % (0.0-7.3) 01/09/22 12:50 Eosinophils % (Manual) 0 % (0.0-4.3) 01/09/22 12:50 Basophils % (Manual) 0 % (0.0-1.8) 01/09/22 12:50 Metamyelocytes % 0 % 01/09/22 12:50 Myelocytes % 0 % 01/09/22 12:50 Promyelocytes % 0 % 01/09/22 12:50 Blast Cells % 0 % 01/09/22 12:50 Nucleated RBC % Not Reportable 01/09/22 12:50 Seg Neutrophils # Rn Radiation Oncology 01/10/22 06:16 Seg Neutrophils # Man 1.4 K/mm3 (1.8-7.7) L 01/09/22 12:50 Band Neutrophils # 0.0 K/mm3 01/09/22 12:50 Lymphocytes # (Manual) 0.5 K/mm3 (1.2-5.4) L 01/09/22 12:50 Abs React Lymphs (Man) 0.0 K/mm3 01/09/22 12:50 Monocytes # (Manual) 0.1 K/mm3 (0.0-0.8) 01/09/22 12:50 Eosinophils # (Manual) 0.0 K/mm3 (0.0-0.4) 01/09/22 12:50 Basophils # (Manual) 0.0 K/mm3 (0.0-0.1) 01/09/22 12:50 Metamyelocytes # 0.0 K/mm3 01/09/22 12:50 Myelocytes # 0.0 K/mm3 01/09/22 12:50 Promyelocytes # 0.0 K/mm3 01/09/22 12:50 Blast Cells # 0.0 K/mm3 01/09/22 12:50 WBC Morphology Not Reportable 01/09/22 12:50 Hypersegmented Neuts Not Reportable 01/09/22 12:50 Hyposegmented Neuts Not Reportable 01/09/22 12:50 Hypogranular Neuts Not Reportable 01/09/22 12:50 Smudge Cells Not Reportable 01/09/22 12:50 Toxic Granulation Not Reportable 01/09/22 12:50 Toxic Vacuolation Not Reportable 01/09/22 12:50 Dohle Bodies Not Reportable 01/09/22 12:50 Pelger-Huet Anomaly Not Reportable 01/09/22 12:50 Lesley Rods Not Reportable 01/09/22 12:50 Platelet Estimate Consistent w auto 01/09/22 12:50 Clumped Platelets Not Reportable 01/09/22 12:50 Plt Clumps, EDTA Not Reportable 01/09/22 12:50 Large Platelets Not Reportable 01/09/22 12:50 Giant Platelets Not Reportable 01/09/22 12:50 Platelet Satelliting Not Reportable 01/09/22 12:50 Plt Morphology Comment Not Reportable 01/09/22 12:50 RBC Morphology Not Reportable 01/09/22 12:50 Dimorphic RBCs Not Reportable 01/09/22 12:50 Polychromasia Few 01/09/22 12:50 Hypochromasia Not Reportable 01/09/22 12:50 Poikilocytosis Not Reportable 01/09/22 12:50 Anisocytosis Not Reportable 01/09/22 12:50 Microcytosis Not Reportable 01/09/22 12:50 Macrocytosis Not Reportable 01/09/22 12:50 Spherocytes Not Reportable 01/09/22 12:50 Pappenheimer Bodies Not Reportable 01/09/22 12:50 Sickle Cells Not Reportable 01/09/22 12:50 Target Cells Not Reportable 01/09/22 12:50 Tear Drop Cells Not Reportable 01/09/22 12:50 Ovalocytes Not Reportable 01/09/22 12:50 Helmet Cells Not Reportable 01/09/22 12:50 Hammonds-Happy Bodies Not Reportable 01/09/22 12:50 [place] Rings Not Reportable 01/09/22 12:50 Lamar Cells Not Reportable 01/09/22 12:50 Bite Cells Not Reportable 01/09/22 12:50 Crenated Cell Not Reportable 01/09/22 12:50 Elliptocytes Not Reportable 01/09/22 12:50 Acanthocytes (Spur) Not Reportable 01/09/22 12:50 Rouleaux Not Reportable 01/09/22 12:50 Hemoglobin C Crystals Not Reportable 01/09/22 12:50 Schistocytes Not Reportable 01/09/22 12:50 Malaria parasites Not Reportable 01/09/22 12:50 Artemio Bodies Not Reportable 01/09/22 12:50 Hem Pathologist Commnt No 01/09/22 12:50 APTT 29.2 Sec. (24.2-36.6) 01/09/22 12:50 Sodium 157 mmol/L (137-145) H 01/10/22 06:16 Potassium 5.5 mmol/L (3.6-5.0) H 01/10/22 06:16 Chloride 125.0 mmol/L (98-107) H 01/10/22 06:16 Carbon Dioxide 17 mmol/L (22-30) L 01/10/22 06:16 Anion Gap 21 mmol/L 01/10/22 06:16 BUN 95 mg/dL (7-17) H 01/09/22 12:50 Creatinine 3.1 mg/dL (0.6-1.2) H 01/10/22 06:16 Estimated GFR 18 ml/min 01/10/22 06:16 BUN/Creatinine Ratio 43 % 01/09/22 12:50 Glucose 143 mg/dL (65-100) H 01/10/22 06:16 POC Glucose 138 mg/dL (70-105) H 01/10/22 07:15 Lactic Acid 1.40 mmol/L (0.7-2.0) 01/09/22 12:50 Calcium 6.9 mg/dL (8.4-10.2) L 01/09/22 12:50 Total Bilirubin 0.20 mg/dL (0.1-1.2) 01/09/22 12:50 Direct Bilirubin < 0.2 mg/dL (0-0.2) 01/09/22 12:50 Indirect Bilirubin 0.0 mg/dL 01/09/22 12:50 AST 75 units/L (5-40) H 01/09/22 12:50 ALT 31 units/L (7-56) 01/09/22 12:50 Alkaline Phosphatase 69 units/L (35-129) 01/09/22 12:50 NT-Pro-B Natriuret Pep 608.7 pg/mL (0-900) 01/09/22 12:50 Total Protein 7.9 g/dL (6.3-8.2) 01/09/22 12:50 Albumin 2.0 g/dL (3.9-5) L 01/09/22 12:50 Albumin/Globulin Ratio 0.3 % 01/09/22 12:50 Urine Color Yellow (Yellow) 01/09/22 13:52 Urine Turbidity Hazy (Clear) 01/09/22 13:52 Urine pH 6.0 (5.0-7.0) 01/09/22 13:52 Ur Specific [place] 1.020 (1.003-1.030) 01/09/22 13:52 Urine Protein 100 mg/dl mg/dL (Negative) 01/09/22 13:52 Urine Glucose (UA) Neg mg/dL (Negative) 01/09/22 13:52 Urine Ketones Neg mg/dL (Negative) 01/09/22 13:52 Urine Blood Neg (Negative) 01/09/22 13:52 Urine Nitrite Neg (Negative) 01/09/22 13:52 Urine Bilirubin Neg (Negative) 01/09/22 13:52 Urine Urobilinogen < 2.0 mg/dL (<2.0) 01/09/22 13:52 Ur Leukocyte Esterase Neg (Negative) 01/09/22 13:52 Urine WBC (Auto) 4.0 /HPF (0.0-6.0) 01/09/22 13:52 Urine RBC (Auto) 3.0 /HPF (0.0-6.0) 01/09/22 13:52 U Epithel Cells (Auto) 2.0 /HPF (0-13.0) 01/09/22 13:52 Urine Bacteria (Auto) 1+ /HPF (Negative) 01/09/22 13:52 Urine Mucus Few /HPF 01/09/22 13:52 Blood Type B POSITIVE 01/09/22 14:37 Antibody Screen Negative 01/09/22 14:37 Microbiology: Microbiology 01/09/22 12:50 Peripheral/Venous Blood Culture - Preliminary Culture in Progress 01/09/22 12:50 Peripheral/Venous Blood Culture - Preliminary Culture in Progress Active Medications - Current Medications Current Medications: Generic Name Dose Route Start Last Admin Trade Name Freq PRN Reason Stop Dose Admin Acetaminophen 650 mg 01/09/22 15:00 01/09/22 22:12 Acetaminophen 325 Mg Tab PO 650 mg Q4H PRN Administration Pain MILD(1-3)/Fever >100.5/RILEY Albuterol 2.5 mg 01/09/22 14:25 Albuterol 2.5 Mg/3 Ml Nebu IH Q4HRT PRN Shortness Of Breath Ascorbic Acid 500 mg 01/09/22 22:00 01/09/22 22:05 Ascorbic Acid 500 Mg Tab PO 500 mg BID JARROD Administration Cholecalciferol 1,000 unit 01/10/22 10:00 Cholecalciferol (Vit D3) 1000 Unit (25 Mcg) Tab PO DAILY JARROD Dextrose 0 ml 01/09/22 14:48 Dextrose 10% *Hypoglycemia IV PRN PRN Hypoglycemia Heparin Sodium (Porcine) 5,000 unit 01/09/22 22:00 01/09/22 22:05 Heparin 5,000 Unit/1 Ml Vial SUB-Q 5,000 unit Q12HR JARROD Administration Hydromorphone HCl 0.25 mg 01/09/22 15:00 Hydromorphone 1 Mg/1 Ml Inj IV Q4H PRN Pain, Moderate (4-6) Hydromorphone HCl 0.5 mg 01/09/22 15:00 Hydromorphone 1 Mg/1 Ml Inj IV Q23H PRN Pain , Severe (7-10) Ceftriaxone Sodium 2 gm in 100 mls @ 200 mls/hr 01/09/22 16:00 01/09/22 17:16 Rocephin/Ns 2 Gm/100 Ml IV 200 mls/hr Q24H JARROD Administration Protocol Azithromycin 500 mg in 250 mls @ 250 mls/hr 01/09/22 15:00 01/09/22 15:58 Zithromax/Ns IV 250 mls/hr Q24H JARROD Administration Protocol Sodium Chloride 2,000 mls @ 130 mls/hr 01/09/22 15:00 01/10/22 05:57 Nacl 0.45% IV 130 mls/hr DIRECT JARROD Administration Insulin Human Regular 0 units 01/09/22 16:30 01/09/22 23:15 Insulin Regular, Human 100 Units/1 Ml SUB-Q Not Given ACHS JARROD Protocol Methylprednisolone Sodium Succinate 40 mg 01/09/22 22:00 01/10/22 05:23 Methylprednisolone Sod Succinate 40 Mg/1 Ml Inj IV 40 mg Q8HR JARROD Administration Ondansetron HCl 4 mg 01/09/22 16:00 Ondansetron 4 Mg/2 Ml Inj IV Q8H PRN Nausea And Vomiting Oxycodone/Acetaminophen 1 tab 01/09/22 15:00 Oxycodone /Acetaminophen 5-325mg Tab PO Q16H PRN Pain, Moderate (4-6) Sodium Chloride 10 ml 01/09/22 22:00 01/09/22 23:15 Sodium Chloride 0.9% 10 Ml Flush Syringe IV 10 ml BID JARROD Administration Sodium Chloride 10 ml 01/09/22 15:00 Sodium Chloride 0.9% 10 Ml Flush Syringe IV PRN PRN LINE FLUSH Zinc Sulfate 220 mg 01/09/22 22:00 01/09/22 22:05 Zinc Sulfate 220 Mg Cap PO 220 mg BID JARROD Administration
[2022-01-10] MEDS: INSULIN REGULAR, HUMAN 100 UNITS/1 ML SUB-Q SCH ×4 (08:03→22:54)
[2022-01-10] MEDS ORDERED: CHOLECALCIFEROL (VIT D3) 400 UNIT TAB PO SCH (10:00)
[2022-01-10] MEDS: ASCORBIC ACID 500 MG TAB PO SCH ×2 (10:12→21:06)
[2022-01-10] MEDS: ZINC SULFATE 220 MG CAP PO SCH ×2 (10:12→21:07)
[2022-01-10] MEDS: HEPARIN 5,000 UNIT/1 ML VIAL SUB-Q SCH ×2 (10:12→21:07)
[2022-01-10] MEDS: CHOLECALCIFEROL (VIT D3) 1000 UNIT (25 mcg) TAB PO SCH (10:12)
[2022-01-10 10:42] LABS: Band Neutrophils # (Manual) 0.8 K/mm3; Basophils % (Manual) 0 % (0.0-1.8); Eosinophils % (Manual) 0 % (0.0-4.3); Monocytes % (Manual) 0 % (0.0-7.3); Myelocytes # (Manual) 0.8 K/mm3; Platelet Estimate Consistent w Auto; Total Cells Counted 100
[2022-01-10] MEDS: FREE WATER PO SCH ×3 (12:51→21:38)
--- NOTE | 2022-01-10 13:19 | Electrocardiograph Report ---
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
[2022-01-10] MEDS: AZITHROMYCIN/NS 500 MG/250 ML 500 MG/250 ML BAG IV SCH (15:48)
[2022-01-10] MEDS: cefTRIAXone/NS 2 GM/100 ML 2 GM/100 ML BAG IV SCH (16:12)
[2022-01-11] MEDS: FREE WATER PO SCH ×6 (05:18→21:06)
[2022-01-11] MEDS: methylPREDNISolone Sod Succinate 40 MG/1 ML INJ IV SCH ×3 (05:22→21:03)
--- NOTE | 2022-01-11 07:24 | Progress Note ---
Assessment and Plan Assessment and plan: #Sepsis -improving #COVID-19 infection #Pneumonia -Blood cultures NGTD so far; UCx negative -continue doxycycline and rocephin -continue steroids; vitamins for COVID infection not a candidate for remdesivir due to kidney function -ID following, assistance appreciated #Acute respiratory failure with hypoxia-improving -currently on 2LNC, will wean to RA as tolerated -continuous pulse ox -likely secondary to COVID PNA vs bacterial PNA -V/Q scan and venous duplex ordered due to elevated d-dimer -continue steroids day 2 of 10 #Acute metabolic encephalopathy-resolved #hx of Vascular dementia #Cerebral atherosclerosis -multifactorial; acute change likely secondary to infection -will continue to monitor #Acute kidney injury-worsening -SCr 4.1 today, 2.2 on admission; baseline was 1.3 02/2021 -Renal US characteristic of medical renal dz, nonobstructing stone seen in L kidney -avoid nephrotoxins and will renally dose medications -Nephrology consulted #Metabolic acidosis -secondary to renal failure #Hypernatremia -continue D5 1/2 NS -continue free water flushes q4h -likely secondary to lack of free water due to patients clinical condition #Dysphagia -Currently with PEG tube -continue tube feeds -Nutrition consult #Hypertension -Restarted home amlodipine and carvedilol #Severe protein-calorie malnutrition -albumin 2.0 -continue TF, Nutrition managing #Sacral decubitus ulcer -Continue wound care History Interval history: No acute events overnight per nursing. Patient currently on 4LNC. Confused and not participating in interview today. Hospitalist Physical - Physical exam Narrative exam: GENERAL: Cachexic. In no acute distress. HEENT: NC @ 4LPM; Dry mucus membranes NECK: RIJ Vasc cath CHEST/LUNGS: CTAB on NC HEART/CARDIOVASCULAR: RRR. No murmur, rubs or gallops appreciated. ABDOMEN: PEG tube. +BS. NT/ND. SKIN: No rashes noted. NEURO: Unable to assess. MUSCULOSKELETAL: No joint effusion EXTREMITIES: No cyanosis, clubbing or edema. PSYCH: Cooperative. - Constitutional Vitals: Temp Pulse Resp BP Pulse Ox 97.4 F L 77 19 147/100 98 01/11/22 04:51 01/11/22 04:51 01/11/22 04:51 01/11/22 04:51 01/11/22 04:51 General appearance: Present: mild distress, cachectic Results - Labs CBC & Chem 7: 01/10/22 06:16 01/12/22 06:05 Labs: Laboratory Last Values WBC 6.3 K/mm3 (4.5-11.0) 01/10/22 06:16 RBC 2.92 M/mm3 (3.65-5.03) L 01/10/22 06:16 Hgb 7.9 gm/dl (10.1-14.3) L 01/10/22 06:16 Hct 25.9 % (30.3-42.9) L 01/10/22 06:16 MCV 89 fl (79-97) 01/10/22 06:16 MCH 27 pg (28-32) L 01/10/22 06:16 MCHC 31 % (30-34) 01/10/22 06:16 RDW 16.8 % (13.2-15.2) H 01/10/22 06:16 Plt Count 162 K/mm3 (140-440) 01/10/22 06:16 Lymph % (Auto) Alcoholic Counselor 01/10/22 06:16 [place] % (Auto) Alcoholic Counselor 01/10/22 06:16 Eos % (Auto) Alcoholic Counselor 01/10/22 06:16 Baso % (Auto) Alcoholic Counselor 01/10/22 06:16 Lymph # (Auto) Alcoholic Counselor 01/10/22 06:16 [place] # (Auto) Alcoholic Counselor 01/10/22 06:16 Eos # (Auto) Alcoholic Counselor 01/10/22 06:16 Baso # (Auto) Alcoholic Counselor 01/10/22 06:16 Add Manual Diff Complete 01/10/22 06:16 Total Counted 100 01/10/22 06:16 Seg Neutrophils % Alcoholic Counselor 01/10/22 06:16 Seg Neuts % (Manual) 59.0 % (40.0-70.0) 01/10/22 06:16 Band Neutrophils % 13.0 % 01/10/22 06:16 Lymphocytes % (Manual) 8.0 % (13.4-35.0) L 01/10/22 06:16 Reactive Lymphs % (Man) 0 % 01/10/22 06:16 Monocytes % (Manual) 0 % (0.0-7.3) 01/10/22 06:16 Eosinophils % (Manual) 0 % (0.0-4.3) 01/10/22 06:16 Basophils % (Manual) 0 % (0.0-1.8) 01/10/22 06:16 Metamyelocytes % 8.0 % 01/10/22 06:16 Myelocytes % 12.0 % 01/10/22 06:16 Promyelocytes % 0 % 01/10/22 06:16 Blast Cells % 0 % 01/10/22 06:16 Nucleated RBC % Not Reportable 01/10/22 06:16 Seg Neutrophils # Alcoholic Counselor 01/10/22 06:16 Seg Neutrophils # Man 3.7 K/mm3 (1.8-7.7) 01/10/22 06:16 Band Neutrophils # 0.8 K/mm3 01/10/22 06:16 Lymphocytes # (Manual) 0.5 K/mm3 (1.2-5.4) L 01/10/22 06:16 Abs React Lymphs (Man) 0.0 K/mm3 01/10/22 06:16 Monocytes # (Manual) 0.0 K/mm3 (0.0-0.8) 01/10/22 06:16 Eosinophils # (Manual) 0.0 K/mm3 (0.0-0.4) 01/10/22 06:16 Basophils # (Manual) 0.0 K/mm3 (0.0-0.1) 01/10/22 06:16 Metamyelocytes # 0.5 K/mm3 01/10/22 06:16 Myelocytes # 0.8 K/mm3 01/10/22 06:16 Promyelocytes # 0.0 K/mm3 01/10/22 06:16 Blast Cells # 0.0 K/mm3 01/10/22 06:16 WBC Morphology Not Reportable 01/10/22 06:16 Hypersegmented Neuts Not Reportable 01/10/22 06:16 Hyposegmented Neuts Not Reportable 01/10/22 06:16 Hypogranular Neuts Not Reportable 01/10/22 06:16 Smudge Cells Not Reportable 01/10/22 06:16 Toxic Granulation Not Reportable 01/10/22 06:16 Toxic Vacuolation Not Reportable 01/10/22 06:16 Dohle Bodies Not Reportable 01/10/22 06:16 Pelger-Huet Anomaly Not Reportable 01/10/22 06:16 Lesley Rods Not Reportable 01/10/22 06:16 Platelet Estimate Consistent w auto 01/10/22 06:16 Clumped Platelets Not Reportable 01/10/22 06:16 Plt Clumps, EDTA Not Reportable 01/10/22 06:16 Large Platelets Not Reportable 01/10/22 06:16 Giant Platelets Not Reportable 01/10/22 06:16 Platelet Satelliting Not Reportable 01/10/22 06:16 Plt Morphology Comment Not Reportable 01/10/22 06:16 RBC Morphology Not Reportable 01/10/22 06:16 Dimorphic RBCs Not Reportable 01/10/22 06:16 Polychromasia Few 01/10/22 06:16 Hypochromasia Not Reportable 01/10/22 06:16 Poikilocytosis Not Reportable 01/10/22 06:16 Anisocytosis Not Reportable 01/10/22 06:16 Microcytosis Not Reportable 01/10/22 06:16 Macrocytosis Not Reportable 01/10/22 06:16 Spherocytes Not Reportable 01/10/22 06:16 Pappenheimer Bodies Not Reportable 01/10/22 06:16 Sickle Cells Not Reportable 01/10/22 06:16 Target Cells Not Reportable 01/10/22 06:16 Tear Drop Cells Not Reportable 01/10/22 06:16 Ovalocytes Not Reportable 01/10/22 06:16 Helmet Cells Not Reportable 01/10/22 06:16 [place] Bodies Not Reportable 01/10/22 06:16 [place] Rings Not Reportable 01/10/22 06:16 [place] Cells Not Reportable 01/10/22 06:16 Bite Cells Not Reportable 01/10/22 06:16 Crenated Cell Not Reportable 01/10/22 06:16 Elliptocytes Not Reportable 01/10/22 06:16 Acanthocytes (Spur) Not Reportable 01/10/22 06:16 Rouleaux Not Reportable 01/10/22 06:16 Hemoglobin C Crystals Not Reportable 01/10/22 06:16 Schistocytes Not Reportable 01/10/22 06:16 Malaria parasites Not Reportable 01/10/22 06:16 Artemio Bodies Not Reportable 01/10/22 06:16 Hem Pathologist Commnt No 01/10/22 06:16 APTT 29.2 Sec. (24.2-36.6) 01/09/22 12:50 Sodium 157 mmol/L (137-145) H 01/10/22 06:16 Potassium 5.5 mmol/L (3.6-5.0) H 01/10/22 06:16 Chloride 125.0 mmol/L (98-107) H 01/10/22 06:16 Carbon Dioxide 17 mmol/L (22-30) L 01/10/22 06:16 Anion Gap 21 mmol/L 01/10/22 06:16 BUN 120 mg/dL (7-17) H 01/10/22 06:16 Creatinine 3.1 mg/dL (0.6-1.2) H 01/10/22 06:16 Estimated GFR 18 ml/min 01/10/22 06:16 BUN/Creatinine Ratio 39 % 01/10/22 06:16 Glucose 143 mg/dL (65-100) H 01/10/22 06:16 POC Glucose 114 mg/dL (70-105) H 01/10/22 22:40 Lactic Acid 1.40 mmol/L (0.7-2.0) 01/09/22 12:50 Calcium 8.4 mg/dL (8.4-10.2) D 01/10/22 06:16 Total Bilirubin 0.20 mg/dL (0.1-1.2) 01/09/22 12:50 Direct Bilirubin < 0.2 mg/dL (0-0.2) 01/09/22 12:50 Indirect Bilirubin 0.0 mg/dL 01/09/22 12:50 AST 75 units/L (5-40) H 01/09/22 12:50 ALT 31 units/L (7-56) 01/09/22 12:50 Alkaline Phosphatase 69 units/L (35-129) 01/09/22 12:50 NT-Pro-B Natriuret Pep 608.7 pg/mL (0-900) 01/09/22 12:50 Total Protein 7.9 g/dL (6.3-8.2) 01/09/22 12:50 Albumin 2.0 g/dL (3.9-5) L 01/09/22 12:50 Albumin/Globulin Ratio 0.3 % 01/09/22 12:50 Urine Color Yellow (Yellow) 01/09/22 13:52 Urine Turbidity Hazy (Clear) 01/09/22 13:52 Urine pH 6.0 (5.0-7.0) 01/09/22 13:52 Ur Specific [place] 1.020 (1.003-1.030) 01/09/22 13:52 Urine Protein 100 mg/dl mg/dL (Negative) 01/09/22 13:52 Urine Glucose (UA) Neg mg/dL (Negative) 01/09/22 13:52 Urine Ketones Neg mg/dL (Negative) 01/09/22 13:52 Urine Blood Neg (Negative) 01/09/22 13:52 Urine Nitrite Neg (Negative) 01/09/22 13:52 Urine Bilirubin Neg (Negative) 01/09/22 13:52 Urine Urobilinogen < 2.0 mg/dL (<2.0) 01/09/22 13:52 Ur Leukocyte Esterase Neg (Negative) 01/09/22 13:52 Urine WBC (Auto) 4.0 /HPF (0.0-6.0) 01/09/22 13:52 Urine RBC (Auto) 3.0 /HPF (0.0-6.0) 01/09/22 13:52 U Epithel Cells (Auto) 2.0 /HPF (0-13.0) 01/09/22 13:52 Urine Bacteria (Auto) 1+ /HPF (Negative) 01/09/22 13:52 Urine Mucus Few /HPF 01/09/22 13:52 Coronavirus (PCR) Positive (Negative) A 01/10/22 Unknown Blood Type B POSITIVE 01/09/22 14:37 Antibody Screen Negative 01/09/22 14:37 Microbiology: Microbiology 01/09/22 12:50 Peripheral/Venous Blood Culture - Preliminary NO GROWTH AFTER 24 HOURS 01/09/22 12:50 Peripheral/Venous Blood Culture - Preliminary NO GROWTH AFTER 24 HOURS Samuel/IV: Voiding Method Incontinent Active Medications - Current Medications Current Medications: Generic Name Dose Route Start Last Admin Trade Name Freq PRN Reason Stop Dose Admin Acetaminophen 650 mg 01/09/22 15:00 01/09/22 22:12 Acetaminophen 325 Mg Tab PO 650 mg Q4H PRN Administration Pain MILD(1-3)/Fever >100.5/RILEY Albuterol 2.5 mg 01/09/22 14:25 Albuterol 2.5 Mg/3 Ml Nebu IH Q4HRT PRN Shortness Of Breath Ascorbic Acid 500 mg 01/09/22 22:00 01/10/22 21:06 Ascorbic Acid 500 Mg Tab PO 500 mg BID JARROD Administration Cholecalciferol 1,000 unit 01/10/22 10:00 01/10/22 10:12 Cholecalciferol (Vit D3) 1000 Unit (25 Mcg) Tab PO 1,000 unit DAILY JARROD Administration Dextrose 0 ml 01/09/22 14:48 Dextrose 10% *Hypoglycemia IV PRN PRN Hypoglycemia Heparin Sodium (Porcine) 5,000 unit 01/09/22 22:00 01/10/22 21:07 Heparin 5,000 Unit/1 Ml Vial SUB-Q 5,000 unit Q12HR JARROD Administration Hydromorphone HCl 0.25 mg 01/09/22 15:00 Hydromorphone 1 Mg/1 Ml Inj IV Q4H PRN Pain, Moderate (4-6) Hydromorphone HCl 0.5 mg 01/09/22 15:00 Hydromorphone 1 Mg/1 Ml Inj IV Q23H PRN Pain , Severe (7-10) Ceftriaxone Sodium 2 gm in 100 mls @ 200 mls/hr 01/09/22 16:00 01/10/22 16:12 Rocephin/Ns 2 Gm/100 Ml IV 01/13/22 16:29 200 mls/hr Q24H JARROD Administration Protocol Azithromycin 500 mg in 250 mls @ 250 mls/hr 01/09/22 15:00 01/10/22 15:48 Zithromax/Ns IV 01/13/22 15:59 250 mls/hr Q24H JARROD Administration Protocol Sodium Chloride 2,000 mls @ 130 mls/hr 01/09/22 15:00 01/10/22 05:57 Nacl 0.45% IV 130 mls/hr DIRECT JARROD Administration Insulin Human Regular 0 units 01/09/22 16:30 01/10/22 22:54 Insulin Regular, Human 100 Units/1 Ml SUB-Q Not Given ACHS JARROD Protocol Methylprednisolone Sodium Succinate 40 mg 01/09/22 22:00 01/11/22 05:22 Methylprednisolone Sod Succinate 40 Mg/1 Ml Inj IV 40 mg Q8HR JARROD Administration Ondansetron HCl 4 mg 01/09/22 16:00 Ondansetron 4 Mg/2 Ml Inj IV Q8H PRN Nausea And Vomiting Oxycodone/Acetaminophen 1 tab 01/09/22 15:00 Oxycodone /Acetaminophen 5-325mg Tab PO Q16H PRN Pain, Moderate (4-6) Sodium Chloride 10 ml 01/09/22 22:00 01/10/22 21:09 Sodium Chloride 0.9% 10 Ml Flush Syringe IV 10 ml BID JARROD Administration Sodium Chloride 10 ml 01/09/22 15:00 Sodium Chloride 0.9% 10 Ml Flush Syringe IV PRN PRN LINE FLUSH Zinc Sulfate 220 mg 01/09/22 22:00 01/10/22 21:07 Zinc Sulfate 220 Mg Cap PO 220 mg BID JARROD Administration Nutrition/Malnutrition Assess - Dietary Evaluation Nutrition/Malnutrition Findings: Nutrition Notes Start: 01/10/22 13:52 Freq: Status: Active Protocol: Document 01/10/22 13:52 FLOR (Rec: 01/10/22 14:43 FLOR [id number]) Nutrition Notes Need for Assessment generated from: Low BMI Initial or Follow up Assessment Current Diagnosis Acute Kidney Injury,Sepsis, Hypertension,Respiratory Failure,Malnutrition Other Pertinent Diagnosis COVID-19/Pneumonia, Metabolic Encephalopathy & Acidosis, KELSIE /ATN... Current Diet TF-Promote @ 48 ml/hr (since D 01/10). Labs/Tests 01/10: Na 157, K 5.5, Cl 125.0 , CO2 17, BUN 120, Crea 3.1, Glu 143. Pertinent Medications 01/10: Vit C, Vit D3, ZnSO4, others nutritionally unremarkable. Height 5 ft 4 in Weight 48 kg [place] Body Weight (kg) 54.54 BMI 18.1 Weight change and time frame None reported at admission. Weight Status Underweight Subjective/Other Information RD consult for Low BMI assessment. ordered TF prior to this assessment. Pt has missing teeth, according to Physical Assessment History notes. Pt lives in SNF. Procedure 01/09: Ultrasound guided R-internal jugular vein triple-lumen catheter placement. Case Management note 01/10: States patient has been bed bound and not getting up for 2 weeks and not eating. CM recommending PT/ST eval. Pt's Low BMI seems to correspond to a natural body composition, and associated to a sudden loss of body weight, not to chronic malnutrition, since it was not mentioned in the Physical Assessment History or the Progress notes. Percent of energy/protein needs met: Prescribed TF-Promote @ 48 ml/ hr provides for energy/protein needs (1,152 Kcal/72 g) during LOS, 80% Kcal; 100% AA. Burn Absent Trauma Absent GI Symptoms None Food Allergy No Skin Integrity/Comment Unspecified dryness & flakiness. Current % PO Other Minimum of two criteria No #1 Nutrition Diagnosis Underweight Comments: Case Management note 01/10: .. . patient has been bed bound and not getting up for 2 weeks and not eating. CM recommending PT/ST eval. Etiology Uncertain at the time. As Evidenced by Signs and Symptoms Pt is NPO. Is patient on ventilator? No Is Patient Ambulatory and/or Out of Bed No REE-([place]-St Jeor-confined to bed) 1223.568 Kcal/Kg value to use for calculation 30 Approximate Energy Requirements Using 1440 kcal/Kg Calculation Used for Recommendations Kcal/kg Additional Notes Protein: 1.2-1.5 g/Kg; 58-72 g /day. Fluids: 1 ml/Kcal, or as per MD. Nutrition Intervention Nutrition Support: Start Promote @ 48 ml/hr. Flush: 80 ml water Q 4 hr, or as per MD. Kcal 1,152 Protein (gm) 72 Carbohydrates (gm) 150 Fat (gm) 30 Fluid (mL) 967 Fiber (gm) 0 % RDI: 80% Kcal; 100% AA. Goal #1 Provide at least 75% of energy /protein needs through Enteral Feeding during LOS. Goal #2 Maintain body weight within +/ -3% of admission body weight during LOS. Follow-Up By: 01/12/22 Additional Comments When pertinent, monitor TF tolerance and BM.
[2022-01-11 07:30] LABS: Calcium 8.4 mg/dL (8.4-10.2)
[2022-01-11] MEDS ORDERED: CALCIUM GLUCONATE 1,000 MG in SODIUM CHLORIDE 0.9% 100 ML IV ONE (07:52)
[2022-01-11] MEDS ORDERED: D10W 500 ML IV SOLN IV ONE (08:00)
[2022-01-11] MEDS ORDERED: CALC GLUCONATE 1GM/NS 100 ML 1 GM/100 ML BAG IV NR (08:00)
[2022-01-11] MEDS ORDERED: INSULIN REGULAR, HUMAN 100 UNITS/1 ML IV ONE (08:15)
[2022-01-11] MEDS ORDERED: DEXTROSE 10% IN WATER 250 ML IV ONE (08:15)
[2022-01-11] MEDS ORDERED: DEXTROSE 10% *Hypoglycemia IV ONE (08:30)
[2022-01-11] MEDS: INSULIN REGULAR, HUMAN 100 UNITS/1 ML SUB-Q SCH ×4 (08:32→23:07)
[2022-01-11 08:53] LABS: C-Reactive Protein 30.4 mg/dL (0.00-1.30)
[2022-01-11] MEDS: CHOLECALCIFEROL (VIT D3) 1000 UNIT (25 mcg) TAB PO SCH (09:03)
[2022-01-11] MEDS: ZINC SULFATE 220 MG CAP PO SCH ×2 (09:04→21:03)
[2022-01-11] MEDS: HEPARIN 5,000 UNIT/1 ML VIAL SUB-Q SCH ×2 (09:04→21:03)
[2022-01-11] MEDS: ASCORBIC ACID 500 MG TAB PO SCH ×2 (09:04→21:03)
--- NOTE | 2022-01-11 10:24 | Consultation ---
History of Present Illness - Reason for Consult Consult date: 01/11/22 acute renal failure, hyperkalemia - History of Present Illness Mrs. Galvan is a 62yo SNF resident with vascular dementia, COVID 19 infection who presented to the ED via EMS for evaluation. The patient was found to have increased confusion and weakness on day of presenatation. She was found be hypoxic with pulse oximetry 80s. EMS was contacted and upon arrival the patient was found to be in distress and subsequent transported to [facility] In the ED, the patient was found to have a pulse oximetry of 80% on room oxygen, febrile with temperature of 101.2 F and heart rate in the 130s, with respirations in the 40s. Patient was found to be using accessory muscles to breathe. Chest x-ray revealed bilateral pneumonia. The patient admitted to medical floor and initiated on pneumonia protocol, coronavirus protocol as well as sepsis protocol. Past History Past Medical History: hypertension, other (See HPI) Past Surgical History: No surgical history, Other (Reviewed) Social history: single. denies: smoking, alcohol abuse, prescription drug abuse Family history: diabetes, hypertension Medications and Allergies Allergies Allergy/AdvReac Type Severity Reaction Status Date / Time No Known Allergies Allergy Verified 01/09/22 11:43 Home Medications Medication Instructions Recorded Confirmed Last Taken Type amLODIPine 10 mg PO QDAY #30 tablet 03/09/21 01/09/22 Unknown Rx carvediloL [Coreg] 3.125 mg PO BID #60 tablet 03/09/21 01/09/22 Unknown Rx Active Meds: Active Medications Acetaminophen (Acetaminophen 325 Mg Tab) 650 mg PO Q4H PRN PRN Reason: Pain MILD(1-3)/Fever >100.5/RILEY Last Admin: 01/09/22 22:12 Dose: 650 mg Albuterol (Albuterol 2.5 Mg/3 Ml Nebu) 2.5 mg IH Q4HRT PRN PRN Reason: Shortness Of Breath Ascorbic Acid (Ascorbic Acid 500 Mg Tab) 500 mg PO BID [facility] Last Admin: 01/11/22 09:04 Dose: 500 mg Cholecalciferol (Cholecalciferol (Vit D3) 1000 Unit (25 Mcg) Tab) 1,000 unit PO DAILY [facility] Last Admin: 01/11/22 09:03 Dose: 1,000 unit Dextrose (Dextrose 10% *Hypoglycemia) 0 ml IV PRN PRN PRN Reason: Hypoglycemia Heparin Sodium (Porcine) (Heparin 5,000 Unit/1 Ml Vial) 5,000 unit SUB-Q Q12HR [facility] Last Admin: 01/11/22 09:04 Dose: 5,000 unit Hydromorphone HCl (Hydromorphone 1 Mg/1 Ml Inj) 0.25 mg IV Q4H PRN PRN Reason: Pain, Moderate (4-6) Hydromorphone HCl (Hydromorphone 1 Mg/1 Ml Inj) 0.5 mg IV Q23H PRN PRN Reason: Pain , Severe (7-10) Ceftriaxone Sodium (Rocephin/Ns 2 Gm/100 Ml) 2 gm in 100 mls @ 200 mls/hr IV Q24H [facility]; Protocol Stop: 01/13/22 16:29 Last Admin: 01/10/22 16:12 Dose: 200 mls/hr Azithromycin (Zithromax/Ns) 500 mg in 250 mls @ 250 mls/hr IV Q24H [facility]; Protocol Stop: 01/13/22 15:59 Last Admin: 01/10/22 15:48 Dose: 250 mls/hr Sodium Chloride (Nacl 0.45%) 2,000 mls @ 130 mls/hr IV DIRECT [facility] Last Admin: 01/10/22 05:57 Dose: 130 mls/hr CALC GLUCONATE 1GM/NS 100 ML (Calcium Gluonate/Ns 1,000mg/100ml) 1 gm in 100 mls @ 200 mls/hr IV ONCE@0800 NR Stop: 01/11/22 12:00 Last Admin: 01/11/22 08:31 Dose: 200 mls/hr Insulin Human Regular (Insulin Regular, Human 100 Units/1 Ml) 0 units SUB-Q AC HS [facility]; Protocol Last Admin: 01/11/22 08:32 Dose: Not Given Methylprednisolone Sodium Succinate (Methylprednisolone Sod Succinate 40 Mg/1 Ml Inj) 40 mg IV Q8HR [facility] Last Admin: 01/11/22 05:22 Dose: 40 mg Ondansetron HCl (Ondansetron 4 Mg/2 Ml Inj) 4 mg IV Q8H PRN PRN Reason: Nausea And Vomiting Oxycodone/Acetaminophen (Oxycodone /Acetaminophen 5-325mg Tab) 1 tab PO Q16H PRN PRN Reason: Pain, Moderate (4-6) Sodium Chloride (Sodium Chloride 0.9% 10 Ml Flush Syringe) 10 ml IV BID [facility] Last Admin: 01/11/22 09:04 Dose: 10 ml Sodium Chloride (Sodium Chloride 0.9% 10 Ml Flush Syringe) 10 ml IV PRN PRN PRN Reason: LINE FLUSH Sodium Polystyrene Sulfonate (Sodium Polystyrene 15 Gm/60 Ml Oral Liqd) 30 gm PO Q4H [facility] Stop: 01/11/22 15:01 Zinc Sulfate (Zinc Sulfate 220 Mg Cap) 220 mg PO BID [facility] Last Admin: 01/11/22 09:04 Dose: 220 mg Exam - Vital Signs Vital signs: Vital Signs Pulse BP Pulse Ox 130 H 142/85 80 L 01/09/22 11:40 01/09/22 11:40 01/09/22 11:40 Results - Lab Results 01/10/22 06:16 01/11/22 05:55 Most recent lab results WBC 6.3 K/mm3 (4.5-11.0) 01/10/22 06:16 RBC 2.92 M/mm3 (3.65-5.03) L 01/10/22 06:16 Hgb 7.9 gm/dl (10.1-14.3) L 01/10/22 06:16 Hct 25.9 % (30.3-42.9) L 01/10/22 06:16 MCV 89 fl (79-97) 01/10/22 06:16 MCH 27 pg (28-32) L 01/10/22 06:16 MCHC 31 % (30-34) 01/10/22 06:16 RDW 16.8 % (13.2-15.2) H 01/10/22 06:16 Plt Count 162 K/mm3 (140-440) 01/10/22 06:16 Lymph % (Auto) [employer]ty Development Consultant 01/10/22 06:16 [place] % (Auto) Specialty Development Consultant 01/10/22 06:16 Eos % (Auto) Specialty Development Consultant 01/10/22 06:16 Baso % (Auto) Specialty Development Consultant 01/10/22 06:16 Lymph # (Auto) Specialty Development Consultant 01/10/22 06:16 [place] # (Auto) Specialty Development Consultant 01/10/22 06:16 Eos # (Auto) Specialty Development Consultant 01/10/22 06:16 Baso # (Auto) Specialty Development Consultant 01/10/22 06:16 Add Manual Diff Complete 01/10/22 06:16 Total Counted 100 01/10/22 06:16 Seg Neutrophils % Specialty Development Consultant 01/10/22 06:16 Seg Neuts % (Manual) 59.0 % (40.0-70.0) 01/10/22 06:16 Band Neutrophils % 13.0 % 01/10/22 06:16 Lymphocytes % (Manual) 8.0 % (13.4-35.0) L 01/10/22 06:16 Reactive Lymphs % (Man) 0 % 01/10/22 06:16 Monocytes % (Manual) 0 % (0.0-7.3) 01/10/22 06:16 Eosinophils % (Manual) 0 % (0.0-4.3) 01/10/22 06:16 Basophils % (Manual) 0 % (0.0-1.8) 01/10/22 06:16 Metamyelocytes % 8.0 % 01/10/22 06:16 Myelocytes % 12.0 % 01/10/22 06:16 Promyelocytes % 0 % 01/10/22 06:16 Blast Cells % 0 % 01/10/22 06:16 Nucleated RBC % Not Reportable 01/10/22 06:16 Seg Neutrophils # Specialty Development Consultant 01/10/22 06:16 Seg Neutrophils # Man 3.7 K/mm3 (1.8-7.7) 01/10/22 06:16 Band Neutrophils # 0.8 K/mm3 01/10/22 06:16 Lymphocytes # (Manual) 0.5 K/mm3 (1.2-5.4) L 01/10/22 06:16 Abs React Lymphs (Man) 0.0 K/mm3 01/10/22 06:16 Monocytes # (Manual) 0.0 K/mm3 (0.0-0.8) 01/10/22 06:16 Eosinophils # (Manual) 0.0 K/mm3 (0.0-0.4) 01/10/22 06:16 Basophils # (Manual) 0.0 K/mm3 (0.0-0.1) 01/10/22 06:16 Metamyelocytes # 0.5 K/mm3 01/10/22 06:16 Myelocytes # 0.8 K/mm3 01/10/22 06:16 Promyelocytes # 0.0 K/mm3 01/10/22 06:16 Blast Cells # 0.0 K/mm3 01/10/22 06:16 WBC Morphology Not Reportable 01/10/22 06:16 Hypersegmented Neuts Not Reportable 01/10/22 06:16 Hyposegmented Neuts Not Reportable 01/10/22 06:16 Hypogranular Neuts Not Reportable 01/10/22 06:16 Smudge Cells Not Reportable 01/10/22 06:16 Toxic Granulation Not Reportable 01/10/22 06:16 Toxic Vacuolation Not Reportable 01/10/22 06:16 Dohle Bodies Not Reportable 01/10/22 06:16 Pelger-Huet Anomaly Not Reportable 01/10/22 06:16 Lesley Rods Not Reportable 01/10/22 06:16 Platelet Estimate Consistent w auto 01/10/22 06:16 Clumped Platelets Not Reportable 01/10/22 06:16 Plt Clumps, EDTA Not Reportable 01/10/22 06:16 Large Platelets Not Reportable 01/10/22 06:16 Giant Platelets Not Reportable 01/10/22 06:16 Platelet Satelliting Not Reportable 01/10/22 06:16 Plt Morphology Comment Not Reportable 01/10/22 06:16 RBC Morphology Not Reportable 01/10/22 06:16 Dimorphic RBCs Not Reportable 01/10/22 06:16 Polychromasia Few 01/10/22 06:16 Hypochromasia Not Reportable 01/10/22 06:16 Poikilocytosis Not Reportable 01/10/22 06:16 Anisocytosis Not Reportable 01/10/22 06:16 Microcytosis Not Reportable 01/10/22 06:16 Macrocytosis Not Reportable 01/10/22 06:16 Spherocytes Not Reportable 01/10/22 06:16 Pappenheimer Bodies Not Reportable 01/10/22 06:16 Sickle Cells Not Reportable 01/10/22 06:16 Target Cells Not Reportable 01/10/22 06:16 Tear Drop Cells Not Reportable 01/10/22 06:16 Ovalocytes Not Reportable 01/10/22 06:16 Helmet Cells Not Reportable 01/10/22 06:16 [place] Bodies Not Reportable 01/10/22 06:16 [place] Rings Not Reportable 01/10/22 06:16 Hussein Cells Not Reportable 01/10/22 06:16 Bite Cells Not Reportable 01/10/22 06:16 Crenated Cell Not Reportable 01/10/22 06:16 Elliptocytes Not Reportable 01/10/22 06:16 Acanthocytes (Spur) Not Reportable 01/10/22 06:16 Rouleaux Not Reportable 01/10/22 06:16 Hemoglobin C Crystals Not Reportable 01/10/22 06:16 Schistocytes Not Reportable 01/10/22 06:16 Malaria parasites Not Reportable 01/10/22 06:16 Artemio Bodies Not Reportable 01/10/22 06:16 Hem Pathologist Commnt No 01/10/22 06:16 APTT 29.2 Sec. (24.2-36.6) 01/09/22 12:50 D-Dimer 4886.79 ng/mlDDU (0-234) H 01/11/22 07:58 Sodium 152 mmol/L (137-145) H 01/11/22 05:55 Potassium 6.4 mmol/L (3.6-5.0) H* 01/11/22 05:55 Chloride 120.6 mmol/L (98-107) H 01/11/22 05:55 Carbon Dioxide 15 mmol/L (22-30) L 01/11/22 05:55 Anion Gap 23 mmol/L 01/11/22 05:55 BUN 147 mg/dL (7-17) H 01/11/22 05:55 Creatinine 3.7 mg/dL (0.6-1.2) H 01/11/22 05:55 Estimated GFR 15 ml/min 01/11/22 05:55 BUN/Creatinine Ratio 40 % 01/11/22 05:55 Glucose 140 mg/dL (65-100) H 01/11/22 05:55 POC Glucose 133 mg/dL (70-105) H 01/11/22 07:15 Lactic Acid 1.40 mmol/L (0.7-2.0) 01/09/22 12:50 Calcium 8.4 mg/dL (8.4-10.2) 01/11/22 05:55 Ferritin 2182.0 ng/mL (10.0-200.0) H 01/11/22 07:58 Total Bilirubin 0.20 mg/dL (0.1-1.2) 01/09/22 12:50 Direct Bilirubin < 0.2 mg/dL (0-0.2) 01/09/22 12:50 Indirect Bilirubin 0.0 mg/dL 01/09/22 12:50 AST 75 units/L (5-40) H 01/09/22 12:50 ALT 31 units/L (7-56) 01/09/22 12:50 Alkaline Phosphatase 69 units/L (35-129) 01/09/22 12:50 Lactate Dehydrogenase 332 units/L (91-180) H 01/11/22 07:58 C-Reactive Protein 30.40 mg/dL (0.00-1.30) H 01/11/22 07:58 NT-Pro-B Natriuret Pep 608.7 pg/mL (0-900) 01/09/22 12:50 Total Protein 7.9 g/dL (6.3-8.2) 01/09/22 12:50 Albumin 2.0 g/dL (3.9-5) L 01/09/22 12:50 Albumin/Globulin Ratio 0.3 % 01/09/22 12:50 Urine Color Yellow (Yellow) 01/09/22 13:52 Urine Turbidity Hazy (Clear) 01/09/22 13:52 Urine pH 6.0 (5.0-7.0) 01/09/22 13:52 Ur Specific [place] 1.020 (1.003-1.030) 01/09/22 13:52 Urine Protein 100 mg/dl mg/dL (Negative) 01/09/22 13:52 Urine Glucose (UA) Neg mg/dL (Negative) 01/09/22 13:52 Urine Ketones Neg mg/dL (Negative) 01/09/22 13:52 Urine Blood Neg (Negative) 01/09/22 13:52 Urine Nitrite Neg (Negative) 01/09/22 13:52 Urine Bilirubin Neg (Negative) 01/09/22 13:52 Urine Urobilinogen < 2.0 mg/dL (<2.0) 01/09/22 13:52 Ur Leukocyte Esterase Neg (Negative) 01/09/22 13:52 Urine WBC (Auto) 4.0 /HPF (0.0-6.0) 01/09/22 13:52 Urine RBC (Auto) 3.0 /HPF (0.0-6.0) 01/09/22 13:52 U Epithel Cells (Auto) 2.0 /HPF (0-13.0) 01/09/22 13:52 Urine Bacteria (Auto) 1+ /HPF (Negative) 01/09/22 13:52 Urine Mucus Few /HPF 01/09/22 13:52 Coronavirus (PCR) Positive (Negative) A 01/10/22 Unknown
[2022-01-11] MEDS: SODIUM POLYSTYRENE 15 GM/60 ML ORAL LIQD PO SCH ×2 (12:23→16:05)
--- NOTE | 2022-01-11 12:55 | Consultation ---
History of Present Illness - Reason for Consult Consult date: 01/11/22 COVID-19 Requesting physician: MARLENE JACK - History of Present Illness The patient is a 62-year-old female with hypertension, custodial resident, vascular dementia, CVA, debility was recently diagnosed with COVID-19 infection at the custodial. She developed fever and hypoxia hence was transferred to the hospital. Chest x-ray showed bilateral pneumonia, labs revealed leukopenia with WBC of 2.0 on admission, D-dimer 4886, CMP revealed hyponatremia, hyperkalemia, acidosis, creatinine 2.2 along with mild transaminitis, CRP 30.4, procalcitonin pending. UA showed no pyuria. COVID-19 PCR came back positive here as well. Infectious diseases was consulted for additional evaluation. She had a fever of 103 F 2 days ago, currently hypoxic requiring nonrebreather m ask. Review of Systems: limited due to poor historian Past History Past Medical History: hypertension, other (See HPI) Past Surgical History: No surgical history, Other (Reviewed) Social history: single. denies: smoking, alcohol abuse, prescription drug abuse Family history: diabetes, hypertension Medications and Allergies Allergies Allergy/AdvReac Type Severity Reaction Status Date / Time No Known Allergies Allergy Verified 01/09/22 11:43 Home Medications Medication Instructions Recorded Confirmed Last Taken Type amLODIPine 10 mg PO QDAY #30 tablet 03/09/21 01/09/22 Unknown Rx carvediloL [Coreg] 3.125 mg PO BID #60 tablet 03/09/21 01/09/22 Unknown Rx Active Meds: Active Medications Acetaminophen (Acetaminophen 325 Mg Tab) 650 mg PO Q4H PRN PRN Reason: Pain MILD(1-3)/Fever >100.5/RILEY Last Admin: 01/09/22 22:12 Dose: 650 mg Albuterol (Albuterol 2.5 Mg/3 Ml Nebu) 2.5 mg IH Q4HRT PRN PRN Reason: Shortness Of Breath Ascorbic Acid (Ascorbic Acid 500 Mg Tab) 500 mg PO BID [facility] Last Admin: 01/11/22 09:04 Dose: 500 mg Cholecalciferol (Cholecalciferol (Vit D3) 1000 Unit (25 Mcg) Tab) 1,000 unit PO DAILY [facility] Last Admin: 01/11/22 09:03 Dose: 1,000 unit Dextrose (Dextrose 10% *Hypoglycemia) 0 ml IV PRN PRN PRN Reason: Hypoglycemia Heparin Sodium (Porcine) (Heparin 5,000 Unit/1 Ml Vial) 5,000 unit SUB-Q Q12HR [facility] Last Admin: 01/11/22 09:04 Dose: 5,000 unit Hydromorphone HCl (Hydromorphone 1 Mg/1 Ml Inj) 0.25 mg IV Q4H PRN PRN Reason: Pain, Moderate (4-6) Hydromorphone HCl (Hydromorphone 1 Mg/1 Ml Inj) 0.5 mg IV Q23H PRN PRN Reason: Pain , Severe (7-10) Ceftriaxone Sodium (Rocephin/Ns 2 Gm/100 Ml) 2 gm in 100 mls @ 200 mls/hr IV Q24H [facility]; Protocol Stop: 01/13/22 16:29 Last Admin: 01/10/22 16:12 Dose: 200 mls/hr Azithromycin (Zithromax/Ns) 500 mg in 250 mls @ 250 mls/hr IV Q24H [facility]; Protocol Stop: 01/13/22 15:59 Last Admin: 01/10/22 15:48 Dose: 250 mls/hr Sodium Chloride (Nacl 0.45%) 2,000 mls @ 130 mls/hr IV DIRECT [facility] Last Admin: 01/10/22 05:57 Dose: 130 mls/hr Insulin Human Regular (Insulin Regular, Human 100 Units/1 Ml) 0 units SUB-Q ACHS [facility]; Protocol Last Admin: 01/11/22 12:19 Dose: Not Given Methylprednisolone Sodium Succinate (Methylprednisolone Sod Succinate 40 Mg/1 Ml Inj) 40 mg IV Q8HR [facility] Last Admin: 01/11/22 05:22 Dose: 40 mg Ondansetron HCl (Ondansetron 4 Mg/2 Ml Inj) 4 mg IV Q8H PRN PRN Reason: Nausea And Vomiting Oxycodone/Acetaminophen (Oxycodone /Acetaminophen 5-325mg Tab) 1 tab PO Q16H PRN PRN Reason: Pain, Moderate (4-6) Sodium Chloride (Sodium Chloride 0.9% 10 Ml Flush Syringe) 10 ml IV BID [facility] Last Admin: 01/11/22 09:04 Dose: 10 ml Sodium Chloride (Sodium Chloride 0.9% 10 Ml Flush Syringe) 10 ml IV PRN PRN PRN Reason: LINE FLUSH Sodium Polystyrene Sulfonate (Sodium Polystyrene 15 Gm/60 Ml Oral Liqd) 30 gm PO Q4H [facility] Stop: 01/11/22 15:01 Last Admin: 01/11/22 12:23 Dose: 30 gm Zinc Sulfate (Zinc Sulfate 220 Mg Cap) 220 mg PO BID [facility] Last Admin: 01/11/22 09:04 Dose: 220 mg Physical Examination - Physical Exam Narrative exam: Physical Exam: Constitutional: Alert, awake, frail Head, Ears, Nose: Normocephalic, atraumatic. External ears, nose normal Eyes: Conjunctivae/corneas clear. No icterus. No ptosis. Neck: Supple, no meningeal signs Cardiovascular: S1, S2 + Respiratory: AE fair GI: Soft, non-tender; bowel sounds normal. No peritoneal signs. G-tube present Musculoskeletal: No pedal edema, no cyanosis. Unable to turn, unable to evaluate decubitus ulcer Skin: No rash or abscess Hem/Lymphatic: No palpable cervical or supraclavicular nodes. No lymphangitis Psych: Calm, no agitation Neurological: Awake, alert - Constitutional Vitals: Vital Signs Temp Pulse Resp BP Pulse Ox 97.4 F L 77 19 147/100 98 01/11/22 04:51 01/11/22 04:51 01/11/22 04:51 01/11/22 04:51 01/11/22 04:51 Temperature -Last 24 Hours Temperature 97.4 F Temperature 98.0 F Temperature 97 F Results - Labs CBC & Chem 7: 01/10/22 06:16 01/11/22 05:55 Labs: Abnormal lab results 01/10/22 01/10/22 01/11/22 Range/Units 22:40 Unknown 05:55 D-Dimer (0-234) ng/mlDDU Sodium 152 H (137-145) mmol/L Potassium 6.4 H* (3.6-5.0) mmol/L Chloride 120.6 H (98-107) mmol/L Carbon Dioxide 15 L (22-30) mmol/L BUN 147 H (7-17) mg/dL Creatinine 3.7 H (0.6-1.2) mg/dL Glucose 140 H (65-100) mg/dL POC Glucose 114 H (70-105) mg/dL Ferritin (10.0-200.0) ng/mL Lactate Dehydrogenase (91-180) units/L C-Reactive Protein (0.00-1.30) mg/dL Coronavirus (PCR) Positive A (Negative) 01/11/22 01/11/22 01/11/22 Range/Units 07:15 07:58 07:58 D-Dimer 4886.79 H (0-234) ng/mlDDU Sodium (137-145) mmol/L Potassium (3.6-5.0) mmol/L Chloride (98-107) mmol/L Carbon Dioxide (22-30) mmol/L BUN (7-17) mg/dL Creatinine (0.6-1.2) mg/dL Glucose (65-100) mg/dL POC Glucose 133 H (70-105) mg/dL Ferritin 2182.0 H (10.0-200.0) ng/mL Lactate Dehydrogenase (91-180) units/L C-Reactive Protein (0.00-1.30) mg/dL Coronavirus (PCR) (Negative) 01/11/22 Range/Units 07:58 D-Dimer (0-234) ng/mlDDU Sodium (137-145) mmol/L Potassium (3.6-5.0) mmol/L Chloride (98-107) mmol/L Carbon Dioxide (22-30) mmol/L BUN (7-17) mg/dL Creatinine (0.6-1.2) mg/dL Glucose (65-100) mg/dL POC Glucose (70-105) mg/dL Ferritin (10.0-200.0) ng/mL Lactate Dehydrogenase 332 H (91-180) units/L C-Reactive Protein 30.40 H (0.00-1.30) mg/dL Coronavirus (PCR) (Negative) - Imaging and Cardiology Chest x-ray: report reviewed, image reviewed (mild b/l infiltrates) Assessment and Plan Cultures: SARS CoV2 PCR: Positive 01/09/2022 blood culture: No growth A/P: 62-year-old female with hypertension, custodial resident, vascular dementia, CVA, debility was recently diagnosed with COVID-19 infection at the custodial: #Bilateral pneumonia: Secondary to COVID-19 #Acute hypoxic respiratory failure: Secondary to above, requiring NRB. #KELSIE: Renally adjust antibiotics #Sacral decubitus ulcer #Acute on chronic encephalopathy, vascular dementia #Malnutrition #Leucopenia: secondary to viral illness Recs: IV/PO Dexamethasone x 10 days Given acute kidney injury, not a candidate for Remdesivir if hypoxia worsens to requiring HFNC >30 L/min, given CRP >7.5, candidate for Actemra (depending on availability) prophylactic anticoagulation based on d-dimer per hospital protocol Complete 5 days of empiric ceftriaxone, added 7 days of IV/PO doxycycline trend ferritin, d-dimer, CRP every 2-3 days offloading and wound care for sacral decubitus Ger Stone MD, FACP, [facility] ([facility] O: [phone] F: [phone]
[2022-01-11] MEDS: DOXYCYCLINE HYCLATE 100 MG in SODIUM CHLORIDE 0.9% 250ML 250 ML IV SCH ×2 (15:03→21:02)
--- NOTE | 2022-01-11 16:26 | Vascular Lab Report ---
DUPLEX DOPPLER LOWER EXTREMITY VEINS, BILATERAL INDICATION / CLINICAL INFORMATION: COVID-19 pneumonia. Sepsis. Dementia. TECHNIQUE: Duplex doppler imaging was performed through the veins of both lower extremities using venous andre jay and other maneuvers. COMPARISON: None available. FINDINGS: RIGHT COMMON FEMORAL VEIN: Negative. RIGHT FEMORAL VEIN: Negative. RIGHT POPLITEAL VEIN: Negative. RIGHT CALF VEINS: Negative. LEFT COMMON FEMORAL VEIN: Negative. LEFT FEMORAL VEIN: Negative. LEFT POPLITEAL VEIN: Negative. LEFT CALF VEINS: Negative. ADDITIONAL FINDINGS: No abnormal mass or fluid collection is seen. IMPRESSION: No sonographic evidence for DVT in either lower extremity. Signer Name: Peterson Barrientos MD Signed: 01/11/2022 4:22 PM Workstation Name: [email or web address]
[2022-01-11] MEDS: cefTRIAXone/NS 2 GM/100 ML 2 GM/100 ML BAG IV SCH (16:27)
--- NOTE | 2022-01-11 16:58 | Nuclear Medicine Report ---
NM PERFUSION ONLY LUNG SCAN INDICATION / CLINICAL INFORMATION: Shortness of breath. TRACER: Technetium 99m MAA 5.2 mCi IV injection. COMPARISON: No relevant prior imaging study available. FINDINGS: Following injection of the above tracer, imaging was performed in 8 projections. Mild heterogeneity o f perfusion is seen. Negative for suspicious perfusion defect. IMPRESSION: No suspicious perfusion defect. Signer Name: Kannan Hassan MD Signed: 01/11/2022 4:54 PM Workstation Name: [id number]
--- NOTE | 2022-01-11 17:58 | Ultrasound Report ---
ULTRASOUND RENAL INDICATION / CLINICAL INFORMATION: KELSIE. COMPARISON: None available. FINDINGS: RIGHT KIDNEY: Length = 9.8 cm. - Echogenicity: Increased. - Cortical Thickness: Normal. - Hydronephrosis: None. - Cyst / Mass: None. - Stones: None seen. LEFT KIDNEY: Length = 10.5 cm. - Echogenicity: Increased. - Cortical Thickness: Normal. - Hydronephrosis: None. - Cyst / Mass: None. - Stones: Possible small nonobstructive calculus in the upper pole. URINARY BLADDER: No significant abnormality. FREE FLUID: None. ADDITIONAL FINDINGS: None. IMPRESSION: 1. Findings characteristic of medical renal disease bilaterally. 2. Possible nonobstructive left renal calculus. No evidence of hydronephrosis. Signer Name: Peterson Barrientos MD Signed: 01/11/2022 5:54 PM Workstation Name: [email or web address]
[2022-01-11 18:28] LABS: Calcium 8.7 mg/dL (8.4-10.2)
[2022-01-11] MEDS: oxyCODONE /ACETAMINOPHEN 5-325MG TAB PO PRN (21:05)
[2022-01-12] MEDS: FREE WATER PO SCH ×3 (01:31→22:15)
[2022-01-12 03:04] LABS: Chol/HDL Ratio 9.42 %; HDL Cholesterol 14 mg/dL (40-59); LDL Cholesterol,Direct TNR mg/dL (50-130)
[2022-01-12] MEDS: methylPREDNISolone Sod Succinate 40 MG/1 ML INJ IV SCH ×2 (05:21→10:52)
[2022-01-12 06:58] LABS: Calcium 8.7 mg/dL (8.4-10.2)
[2022-01-12] MEDS: HEPARIN 5,000 UNIT/1 ML VIAL SUB-Q SCH ×2 (10:52→22:06)
[2022-01-12] MEDS: CHOLECALCIFEROL (VIT D3) 1000 UNIT (25 mcg) TAB PO SCH (10:52)
[2022-01-12] MEDS: ASCORBIC ACID 500 MG TAB PO SCH ×2 (10:52→22:15)
[2022-01-12] MEDS: ZINC SULFATE 220 MG CAP PO SCH ×2 (10:52→22:16)
[2022-01-12] MEDS ORDERED: hydrALAZINE 20 MG/1 ML INJ IV PRN (11:21)
[2022-01-12] MEDS: DOXYCYCLINE HYCLATE 100 MG in SODIUM CHLORIDE 0.9% 250ML 250 ML IV SCH ×2 (11:27→22:37)
--- NOTE | 2022-01-12 11:33 | Progress Note ---
Assessment and Plan Assessment and plan: #Sepsis -improving #COVID-19 infection #Pneumonia -Blood cultures NGTD so far -continue doxycycline and rocephin -continue steroids; vitamins for COVID infection not a candidate for remdesivir due to kidney function #Acute respiratory failure with hypoxia-improving -currently on 2LNC, will wean to RA as tolerated -continuous pulse ox -likely secondary to COVID PNA vs bacterial PNA -V/Q scan low probability; D-dimer negative for DVT -continue steroids day 3 of 10 #Acute metabolic encephalopathy-resolved #hx of Vascular dementia #Cerebral atherosclerosis -multifactorial; acute change likely secondary to infection -will continue to monitor #Acute kidney injury -SCr 4.2 today, 2.2 on admission; baseline was 1.3 02/2021 -Renal US characteristic of medical renal dz, nonobstructing stone seen in L kidney -avoid nephrotoxins and will renally dose medications -Nephrology following, assistance appreciated #Metabolic acidosis -secondary to renal failure #Hypernatremia -continue D5 1/2 NS -continue free water flushes q4h -likely secondary to lack of free water due to patients clinical condition #Dysphagia -Currently with PEG tube -continue tube feeds -Nutrition consult #Hypertension -Restarted home amlodipine and carvedilol #Diarrhea -loose stools per Nursing -C. diff PCR ordered -could be secondary to abx administration #Severe protein-calorie malnutrition -albumin 2.0 -continue TF, Nutrition managing #Sacral decubitus ulcer -Continue wound care Disposition Plan: NH once medically stable History Interval history: No acute events overnight per nursing. Patient comfortable on 2LPM NC. She denies pain or discomfort at this time. Hospitalist Physical - Physical exam Narrative exam: GENERAL: Cachexic. In no acute distress. HEENT: NC @ 2LPM; Dry mucus membranes NECK: RIJ Vasc cath CHEST/LUNGS: CTAB on NC HEART/CARDIOVASCULAR: RRR. No murmur, rubs or gallops appreciated. ABDOMEN: PEG tube. +BS. NT/ND. SKIN: No rashes noted. NEURO: Unable to assess. MUSCULOSKELETAL: No joint effusion EXTREMITIES: No cyanosis, clubbing or edema. PSYCH: Cooperative. - Constitutional Vitals: Temp Pulse Resp BP Pulse Ox 97.4 F L 77 19 147/100 100 01/11/22 04:51 01/11/22 04:51 01/11/22 04:51 01/11/22 04:51 01/12/22 09:21 General appearance: Present: mild distress, cachectic HEART Score - HEART Score Troponin: Troponin T 0.064 ng/mL (0.00-0.029) H 01/12/22 02:03 Results - Labs CBC & Chem 7: 01/10/22 06:16 01/12/22 06:05 Labs: Laboratory Last Values WBC 6.3 K/mm3 (4.5-11.0) 01/10/22 06:16 RBC 2.92 M/mm3 (3.65-5.03) L 01/10/22 06:16 Hgb 7.9 gm/dl (10.1-14.3) L 01/10/22 06:16 Hct 25.9 % (30.3-42.9) L 01/10/22 06:16 MCV 89 fl (79-97) 01/10/22 06:16 MCH 27 pg (28-32) L 01/10/22 06:16 MCHC 31 % (30-34) 01/10/22 06:16 RDW 16.8 % (13.2-15.2) H 01/10/22 06:16 Plt Count 162 K/mm3 (140-440) 01/10/22 06:16 Lymph % (Auto) Mule Rider 01/10/22 06:16 Bureau % (Auto) Mule Rider 01/10/22 06:16 Eos % (Auto) Mule Rider 01/10/22 06:16 Baso % (Auto) Mule Rider 01/10/22 06:16 Lymph # (Auto) Mule Rider 01/10/22 06:16 Bureau # (Auto) Mule Rider 01/10/22 06:16 Eos # (Auto) Mule Rider 01/10/22 06:16 Baso # (Auto) Mule Rider 01/10/22 06:16 Add Manual Diff Complete 01/10/22 06:16 Total Counted 100 01/10/22 06:16 Seg Neutrophils % Mule Rider 01/10/22 06:16 Seg Neuts % (Manual) 59.0 % (40.0-70.0) 01/10/22 06:16 Band Neutrophils % 13.0 % 01/10/22 06:16 Lymphocytes % (Manual) 8.0 % (13.4-35.0) L 01/10/22 06:16 Reactive Lymphs % (Man) 0 % 01/10/22 06:16 Monocytes % (Manual) 0 % (0.0-7.3) 01/10/22 06:16 Eosinophils % (Manual) 0 % (0.0-4.3) 01/10/22 06:16 Basophils % (Manual) 0 % (0.0-1.8) 01/10/22 06:16 Metamyelocytes % 8.0 % 01/10/22 06:16 Myelocytes % 12.0 % 01/10/22 06:16 Promyelocytes % 0 % 01/10/22 06:16 Blast Cells % 0 % 01/10/22 06:16 Nucleated RBC % Not Reportable 01/10/22 06:16 Seg Neutrophils # Mule Rider 01/10/22 06:16 Seg Neutrophils # Man 3.7 K/mm3 (1.8-7.7) 01/10/22 06:16 Band Neutrophils # 0.8 K/mm3 01/10/22 06:16 Lymphocytes # (Manual) 0.5 K/mm3 (1.2-5.4) L 01/10/22 06:16 Abs React Lymphs (Man) 0.0 K/mm3 01/10/22 06:16 Monocytes # (Manual) 0.0 K/mm3 (0.0-0.8) 01/10/22 06:16 Eosinophils # (Manual) 0.0 K/mm3 (0.0-0.4) 01/10/22 06:16 Basophils # (Manual) 0.0 K/mm3 (0.0-0.1) 01/10/22 06:16 Metamyelocytes # 0.5 K/mm3 01/10/22 06:16 Myelocytes # 0.8 K/mm3 01/10/22 06:16 Promyelocytes # 0.0 K/mm3 01/10/22 06:16 Blast Cells # 0.0 K/mm3 01/10/22 06:16 WBC Morphology Not Reportable 01/10/22 06:16 Hypersegmented Neuts Not Reportable 01/10/22 06:16 Hyposegmented Neuts Not Reportable 01/10/22 06:16 Hypogranular Neuts Not Reportable 01/10/22 06:16 Smudge Cells Not Reportable 01/10/22 06:16 Toxic Granulation Not Reportable 01/10/22 06:16 Toxic Vacuolation Not Reportable 01/10/22 06:16 Dohle Bodies Not Reportable 01/10/22 06:16 Pelger-Huet Anomaly Not Reportable 01/10/22 06:16 Lesley Rods Not Reportable 01/10/22 06:16 Platelet Estimate Consistent w auto 01/10/22 06:16 Clumped Platelets Not Reportable 01/10/22 06:16 Plt Clumps, EDTA Not Reportable 01/10/22 06:16 Large Platelets Not Reportable 01/10/22 06:16 Giant Platelets Not Reportable 01/10/22 06:16 Platelet Satelliting Not Reportable 01/10/22 06:16 Plt Morphology Comment Not Reportable 01/10/22 06:16 RBC Morphology Not Reportable 01/10/22 06:16 Dimorphic RBCs Not Reportable 01/10/22 06:16 Polychromasia Few 01/10/22 06:16 Hypochromasia Not Reportable 01/10/22 06:16 Poikilocytosis Not Reportable 01/10/22 06:16 Anisocytosis Not Reportable 01/10/22 06:16 Microcytosis Not Reportable 01/10/22 06:16 Macrocytosis Not Reportable 01/10/22 06:16 Spherocytes Not Reportable 01/10/22 06:16 Pappenheimer Bodies Not Reportable 01/10/22 06:16 Sickle Cells Not Reportable 01/10/22 06:16 Target Cells Not Reportable 01/10/22 06:16 Tear Drop Cells Not Reportable 01/10/22 06:16 Ovalocytes Not Reportable 01/10/22 06:16 Helmet Cells Not Reportable 01/10/22 06:16 Hammonds-Mobeetie Bodies Not Reportable 01/10/22 06:16 Roscoe Rings Not Reportable 01/10/22 06:16 Hussein Cells Not Reportable 01/10/22 06:16 Bite Cells Not Reportable 01/10/22 06:16 Crenated Cell Not Reportable 01/10/22 06:16 Elliptocytes Not Reportable 01/10/22 06:16 Acanthocytes (Spur) Not Reportable 01/10/22 06:16 Rouleaux Not Reportable 01/10/22 06:16 Hemoglobin C Crystals Not Reportable 01/10/22 06:16 Schistocytes Not Reportable 01/10/22 06:16 Malaria parasites Not Reportable 01/10/22 06:16 Artemio Bodies Not Reportable 01/10/22 06:16 Hem Pathologist Commnt No 01/10/22 06:16 APTT 29.2 Sec. (24.2-36.6) 01/09/22 12:50 D-Dimer 4886.79 ng/mlDDU (0-234) H 01/11/22 07:58 Sodium 156 mmol/L (137-145) H 01/12/22 06:05 Potassium 4.9 mmol/L (3.6-5.0) 01/12/22 06:05 Chloride 119.5 mmol/L (98-107) H 01/12/22 06:05 Carbon Dioxide 17 mmol/L (22-30) L 01/12/22 06:05 Anion Gap 24 mmol/L 01/12/22 06:05 BUN 170 mg/dL (7-17) H 01/12/22 06:05 Creatinine 4.2 mg/dL (0.6-1.2) H 01/12/22 06:05 Estimated GFR 13 ml/min 01/12/22 06:05 BUN/Creatinine Ratio 40 % 01/12/22 06:05 Glucose 191 mg/dL (65-100) H 01/12/22 06:05 POC Glucose 184 mg/dL (70-105) H 01/12/22 07:47 Lactic Acid 1.40 mmol/L (0.7-2.0) 01/09/22 12:50 Calcium 8.7 mg/dL (8.4-10.2) 01/12/22 06:05 Ferritin 2182.0 ng/mL (10.0-200.0) H 01/11/22 07:58 Total Bilirubin 0.20 mg/dL (0.1-1.2) 01/09/22 12:50 Direct Bilirubin < 0.2 mg/dL (0-0.2) 01/09/22 12:50 Indirect Bilirubin 0.0 mg/dL 01/09/22 12:50 AST 75 units/L (5-40) H 01/09/22 12:50 ALT 31 units/L (7-56) 01/09/22 12:50 Alkaline Phosphatase 69 units/L (35-129) 01/09/22 12:50 Lactate Dehydrogenase 332 units/L (91-180) H 01/11/22 07:58 Troponin T 0.064 ng/mL (0.00-0.029) H 01/12/22 02:03 C-Reactive Protein 30.40 mg/dL (0.00-1.30) H 01/11/22 07:58 NT-Pro-B Natriuret Pep 608.7 pg/mL (0-900) 01/09/22 12:50 Total Protein 7.9 g/dL (6.3-8.2) 01/09/22 12:50 Albumin 2.0 g/dL (3.9-5) L 01/09/22 12:50 Albumin/Globulin Ratio 0.3 % 01/09/22 12:50 Triglycerides 442 mg/dL (2-149) H 01/12/22 02:03 Cholesterol 132 mg/dL (50-199) 01/12/22 02:03 LDL Cholesterol Direct TNR 01/12/22 02:03 HDL Cholesterol 14 mg/dL (40-59) L 01/12/22 02:03 Cholesterol/HDL Ratio 9.42 % 01/12/22 02:03 Procalcitonin > 200.00 ng/mL (<0.15) 01/11/22 07:58 Urine Color Yellow (Yellow) 01/09/22 13:52 Urine Turbidity Hazy (Clear) 01/09/22 13:52 Urine pH 6.0 (5.0-7.0) 01/09/22 13:52 Ur Specific [place] 1.020 (1.003-1.030) 01/09/22 13:52 Urine Protein 100 mg/dl mg/dL (Negative) 01/09/22 13:52 Urine Glucose (UA) Neg mg/dL (Negative) 01/09/22 13:52 Urine Ketones Neg mg/dL (Negative) 01/09/22 13:52 Urine Blood Neg (Negative) 01/09/22 13:52 Urine Nitrite Neg (Negative) 01/09/22 13:52 Urine Bilirubin Neg (Negative) 01/09/22 13:52 Urine Urobilinogen < 2.0 mg/dL (<2.0) 01/09/22 13:52 Ur Leukocyte Esterase Neg (Negative) 01/09/22 13:52 Urine WBC (Auto) 4.0 /HPF (0.0-6.0) 01/09/22 13:52 Urine RBC (Auto) 3.0 /HPF (0.0-6.0) 01/09/22 13:52 U Epithel Cells (Auto) 2.0 /HPF (0-13.0) 01/09/22 13:52 Urine Bacteria (Auto) 1+ /HPF (Negative) 01/09/22 13:52 Urine Mucus Few /HPF 01/09/22 13:52 Coronavirus (PCR) Positive (Negative) A 01/10/22 Unknown Blood Type B POSITIVE 01/09/22 14:37 Antibody Screen Negative 01/09/22 14:37 Microbiology: Microbiology 01/09/22 12:50 Peripheral/Venous Blood Culture - Preliminary NO GROWTH AFTER 48 HOURS 01/09/22 12:50 Peripheral/Venous Blood Culture - Preliminary NO GROWTH AFTER 48 HOURS Samuel/IV: Voiding Method Diaper Active Medications - Current Medications Current Medications: Generic Name Dose Route Start Last Admin Trade Name Freq PRN Reason Stop Dose Admin Acetaminophen 650 mg 01/09/22 15:00 01/09/22 22:12 Acetaminophen 325 Mg Tab PO 650 mg Q4H PRN Administration Pain MILD(1-3)/Fever >100.5/RILEY Albuterol 2.5 mg 01/09/22 14:25 Albuterol 2.5 Mg/3 Ml Nebu IH Q4HRT PRN Shortness Of Breath Ascorbic Acid 500 mg 01/09/22 22:00 01/12/22 10:52 Ascorbic Acid 500 Mg Tab PO 500 mg BID JARROD Administration Cholecalciferol 1,000 unit 01/10/22 10:00 01/12/22 10:52 Cholecalciferol (Vit D3) 1000 Unit (25 Mcg) Tab PO 1,000 unit DAILY JARROD Administration Dextrose 0 ml 01/09/22 14:48 Dextrose 10% *Hypoglycemia IV PRN PRN Hypoglycemia Heparin Sodium (Porcine) 5,000 unit 01/09/22 22:00 01/12/22 10:52 Heparin 5,000 Unit/1 Ml Vial SUB-Q 5,000 unit Q12HR JARROD Administration Hydralazine HCl 10 mg 01/12/22 11:21 Hydralazine 20 Mg/1 Ml Inj IV Q4HR PRN Hypertension Hydromorphone HCl 0.25 mg 01/09/22 15:00 Hydromorphone 1 Mg/1 Ml Inj IV Q4H PRN Pain, Moderate (4-6) Hydromorphone HCl 0.5 mg 01/09/22 15:00 Hydromorphone 1 Mg/1 Ml Inj IV Q23H PRN Pain , Severe (7-10) Ceftriaxone Sodium 2 gm in 100 mls @ 200 mls/hr 01/09/22 16:00 01/11/22 16:27 Rocephin/Ns 2 Gm/100 Ml IV 01/13/22 16:29 200 mls/hr Q24H JARROD Administration Protocol Sodium Chloride 2,000 mls @ 130 mls/hr 01/09/22 15:00 01/10/22 05:57 Nacl 0.45% IV 130 mls/hr DIRECT JARROD Administration Doxycycline Hyclate 100 mg/ 250 mls @ 250 mls/hr 01/11/22 14:00 01/11/22 21:02 Sodium Chloride IV 01/18/22 13:59 250 mls/hr Q12HR JARROD Administration Protocol Insulin Human Regular 0 units 01/09/22 16:30 01/11/22 23:07 Insulin Regular, Human 100 Units/1 Ml SUB-Q Not Given ACHS JARROD Protocol Methylprednisolone Sodium Succinate 40 mg 01/12/22 10:00 01/12/22 10:52 Methylprednisolone Sod Succinate 40 Mg/1 Ml Inj IV 40 mg QDAY JARROD Administration Ondansetron HCl 4 mg 01/09/22 16:00 Ondansetron 4 Mg/2 Ml Inj IV Q8H PRN Nausea And Vomiting Oxycodone/Acetaminophen 1 tab 01/09/22 15:00 01/11/22 21:05 Oxycodone /Acetaminophen 5-325mg Tab PO 1 tab Q16H PRN Administration Pain, Moderate (4-6) Sodium Chloride 10 ml 01/09/22 22:00 01/11/22 21:03 Sodium Chloride 0.9% 10 Ml Flush Syringe IV 10 ml BID JARROD Administration Sodium Chloride 10 ml 01/09/22 15:00 Sodium Chloride 0.9% 10 Ml Flush Syringe IV PRN PRN LINE FLUSH Zinc Sulfate 220 mg 01/09/22 22:00 01/12/22 10:52 Zinc Sulfate 220 Mg Cap PO 220 mg BID JARROD Administration Nutrition/Malnutrition Assess - Dietary Evaluation Nutrition/Malnutrition Findings: Nutrition Notes Start: 01/10/22 13:52 Freq: Status: Active Protocol: Document 01/11/22 10:54 SULEMA (Rec: 01/11/22 11:02 SULEMA [id number]) Nutrition Notes Need for Assessment generated from: matchbook [email or web address] Initial or Follow up Brief Note Current Diagnosis Hypertension Other Pertinent Diagnosis ARF, Vascular dementia, COVID- 19 (+) Current Diet TF - Promote at 48ml/hr Labs/Tests Na 152 K 6.4 BUN 147 Cr 3.7 Pertinent Medications Ca gluconate x 1 dose, Solumedrol, 1/2NS at 130ml/hr, Kionex Height 5 ft 4 in Weight 48 kg [place] Body Weight (kg) 54.54 BMI 18.1 Weight Status Underweight Subjective/Other Information Pt screened for skin risk ( Goyo score unavailable), malnutrition risk and receiving NTR support. Burn Absent Trauma Absent Minimum of two criteria Yes Energy Intake (severe) < or equal to 50% Estimated Energy Requirement > or equal to 5 days Body Fat Depletion Moderate depletion (severe) Protein-Calorie Malnutrition Severe #1 Nutrition Diagnosis Underweight Diagnosis Progress(for reassessment Continues documentation) Is patient on ventilator? No Is Patient Ambulatory and/or Out of Bed No REE-([facility]-confined to bed) 1223.568 Kcal/Kg value to use for calculation 35 Approximate Energy Requirements Using 1680 kcal/Kg Calculation Used for Recommendations Kcal/kg Additional Notes Pro needs 0.8-1.2g/k-58g/ day Fluid needs per MD Nutrition Intervention Nutrition Support: Change TF formula to Nepro at 30ml/hr with 130ml water flush q4h. Kcal 1,296 Protein (gm) 58 Carbohydrates (gm) 116 Fat (gm) 69 Fluid (mL) 523 Fiber (gm) 9 Goal #1 TF tolerance Goal #2 TF to meet 100% energy and pro needs Goal #3 Wt maintenance and/or gain Follow-Up By: 01/14/22 Additional Comments F/U: TF tolerance, TF formula change, renal function
[2022-01-12] MEDS: INSULIN REGULAR, HUMAN 100 UNITS/1 ML SUB-Q SCH ×4 (11:43→23:33)
--- NOTE | 2022-01-12 15:43 | Progress Note ---
Assessment and Plan Impression: * Acute kidney injury secondary to ATN * Azotemia secondary to multifactorial etiologies: KELSIE vs steroids * Hypernatremia * Acute hypoxic respiratory failure secondary to COVID 19 PNA * COVID 19 infection Plan: * Start D5W 125ml/hour * Continue free water w/ tube feeds * Steroids per primary team * Management of COVID 19 per primary team * Avoid potential nephrotoxins * Dose medications for renal function * Renal prognosis is guarded; patient may require initiation of renal replacement therapy Subjective Date of service: 01/12/22 Interval history: No acute events overnight. Objective - Vital Signs Vital signs: Vital Signs - 12hr 01/12/22 01/12/22 09:21 13:25 Respiratory 14 Rate O2 Sat by Pulse 100 95 Oximetry - General Appearance General appearance: frail EENT: ATNC Respiratory: Present: Clear to Ascultation Cardiology: regular, S1S2 Gastrointestinal: normal, no tenderness, no distended Neurologic: other (nonverbal) Psychiatric: cooperative - Lab 01/10/22 06:16 01/12/22 06:05 Most recent lab results Calcium 8.7 mg/dL (8.4-10.2) 01/12/22 06:05 Medications & Allergies - Medications Allergies/Adverse Reactions: Allergies No Known Allergies Allergy (Verified 01/09/22 11:43) Home Medications: Home Medications Medication Instructions Recorded Confirmed Last Taken Type amLODIPine 10 mg PO QDAY #30 tablet 03/09/21 01/09/22 Unknown Rx carvediloL [Coreg] 3.125 mg PO BID #60 tablet 03/09/21 01/09/22 Unknown Rx Active Medications: Generic Name Dose Route Start Last Admin Trade Name Shortyq PRN Reason Stop Dose Admin Acetaminophen 650 mg 01/09/22 15:00 01/09/22 22:12 Acetaminophen 325 Mg Tab PO 650 mg Q4H PRN Administration Pain MILD(1-3)/Fever >100.5/RILEY Albuterol 2.5 mg 01/09/22 14:25 Albuterol 2.5 Mg/3 Ml Nebu IH Q4HRT PRN Shortness Of Breath Amlodipine Besylate 10 mg 01/12/22 12:00 Amlodipine 10 Mg Tab PO QDAY JARROD Ascorbic Acid 500 mg 01/09/22 22:00 01/12/22 10:52 Ascorbic Acid 500 Mg Tab PO 500 mg BID JARROD Administration Carvedilol 3.125 mg 01/12/22 12:00 Carvedilol 3.125 Mg Tab PO BID JARROD Cholecalciferol 1,000 unit 01/10/22 10:00 01/12/22 10:52 Cholecalciferol (Vit D3) 1000 Unit (25 Mcg) Tab PO 1,000 unit DAILY JARROD Administration Dextrose 0 ml 01/09/22 14:48 Dextrose 10% *Hypoglycemia IV PRN PRN Hypoglycemia Heparin Sodium (Porcine) 5,000 unit 01/09/22 22:00 01/12/22 10:52 Heparin 5,000 Unit/1 Ml Vial SUB-Q 5,000 unit Q12HR JARROD Administration Hydralazine HCl 10 mg 01/12/22 11:21 Hydralazine 20 Mg/1 Ml Inj IV Q4HR PRN Hypertension Hydromorphone HCl 0.25 mg 01/09/22 15:00 Hydromorphone 1 Mg/1 Ml Inj IV Q4H PRN Pain, Moderate (4-6) Hydromorphone HCl 0.5 mg 01/09/22 15:00 Hydromorphone 1 Mg/1 Ml Inj IV Q23H PRN Pain , Severe (7-10) Ceftriaxone Sodium 2 gm in 100 mls @ 200 mls/hr 01/09/22 16:00 01/11/22 16:27 Rocephin/Ns 2 Gm/100 Ml IV 01/13/22 16:29 200 mls/hr Q24H JARROD Administration Protocol Sodium Chloride 2,000 mls @ 130 mls/hr 01/09/22 15:00 01/10/22 05:57 Nacl 0.45% IV 130 mls/hr DIRECT JARROD Administration Doxycycline Hyclate 100 mg/ 250 mls @ 250 mls/hr 01/11/22 14:00 01/12/22 11:27 Sodium Chloride IV 01/18/22 13:59 250 mls/hr Q12HR JARROD Administration Protocol Dextrose 1,000 mls @ 125 mls/hr 01/12/22 15:00 D5w IV DIRECT JARROD Insulin Human Regular 0 units 01/09/22 16:30 01/12/22 11:47 Insulin Regular, Human 100 Units/1 Ml SUB-Q Not Given ACHS JARROD Protocol Methylprednisolone Sodium Succinate 40 mg 01/12/22 10:00 01/12/22 10:52 Methylprednisolone Sod Succinate 40 Mg/1 Ml Inj IV 40 mg QDAY JARROD Administration Ondansetron HCl 4 mg 01/09/22 16:00 Ondansetron 4 Mg/2 Ml Inj IV Q8H PRN Nausea And Vomiting Oxycodone/Acetaminophen 1 tab 01/09/22 15:00 01/11/22 21:05 Oxycodone /Acetaminophen 5-325mg Tab PO 1 tab Q16H PRN Administration Pain, Moderate (4-6) Sodium Chloride 10 ml 01/09/22 22:00 01/11/22 21:03 Sodium Chloride 0.9% 10 Ml Flush Syringe IV 10 ml BID JARROD Administration Sodium Chloride 10 ml 01/09/22 15:00 Sodium Chloride 0.9% 10 Ml Flush Syringe IV PRN PRN LINE FLUSH Zinc Sulfate 220 mg 01/09/22 22:00 01/12/22 10:52 Zinc Sulfate 220 Mg Cap PO 220 mg BID JARROD Administration
[2022-01-12] MEDS: amLODIPine 10 MG TAB PO SCH (16:25)
[2022-01-12] MEDS: carvediloL 3.125 MG TAB PO SCH ×2 (16:28→22:15)
[2022-01-12] MEDS: cefTRIAXone/NS 2 GM/100 ML 2 GM/100 ML BAG IV SCH (16:29)
[2022-01-12] MEDS: DEXTROSE 5% IN WATER 1,000 ML IV SCH (19:55)
[2022-01-13] MEDS: FREE WATER PO SCH ×6 (00:13→23:56)
[2022-01-13] MEDS: DEXTROSE 5% IN WATER 1,000 ML IV SCH ×3 (05:29→23:40)
[2022-01-13 06:56] LABS: Calcium 8.7 mg/dL (8.4-10.2)
--- NOTE | 2022-01-13 07:57 | Progress Note ---
Assessment and Plan Assessment and plan: #Sepsis -improving #COVID-19 infection #Pneumonia -Blood cultures NGTD so far; UCx negative -continue doxycycline and rocephin -continue steroids; vitamins for COVID infection not a candidate for remdesivir due to kidney function -ID following, assistance appreciated #Acute respiratory failure with hypoxia-improving -currently weaned to RA -continuous pulse ox -likely secondary to COVID PNA vs bacterial PNA -continue steroids day 4 of 10 #Acute metabolic encephalopathy-resolved #hx of Vascular dementia #Cerebral atherosclerosis -multifactorial; acute change likely secondary to infection -will continue to monitor #Acute kidney injury-worsening -SCr 4.5 today -Renal US showed medical renal disease -avoid nephrotoxins and will renally dose medications -Nephrology following, assistance appreciated -contacted [facility] to discuss possibility for dialysis, awaiting return call #Metabolic acidosis -secondary to renal failure #Dysphagia -Currently with PEG tube -continue tube feeds -Nutrition consult #Severe protein-calorie malnutrition -albumin 2.0 -continue TF, Nutrition managing #Sacral decubitus ulcer -Continue wound care #Discharge planning #Advance care planning -Patient to return to [facility] once medically stable -Given worsening renal function, attempted to contact next of kin/daughter Ananya Galvan ([phone]) to discuss prognosis and possibility of eventual hemodialysis. Disposition Plan: [facility] once medically stable History Interval history: No acute events overnight per nursing. Patient on room air. Denies pain and discomfort at this time. Hospitalist Physical - Physical exam Narrative exam: GENERAL: Cachexic. In no acute distress. HEENT:Dry mucus membranes NECK: RIJ Vasc cath CHEST/LUNGS: CTAB on RA HEART/CARDIOVASCULAR: RRR. No murmur, rubs or gallops appreciated. ABDOMEN: PEG tube. +BS. NT/ND. SKIN: No rashes noted. NEURO: Unable to assess. MUSCULOSKELETAL: No joint effusion EXTREMITIES: No cyanosis, clubbing or edema. PSYCH: Cooperative. - Constitutional Vitals: Temp Pulse Resp BP Pulse Ox 97.5 F L 89 18 147/83 98 01/13/22 05:03 01/13/22 05:03 01/13/22 05:03 01/13/22 05:03 01/13/22 07:04 General appearance: Present: mild distress, cachectic HEART Score - HEART Score Troponin: Troponin T 0.064 ng/mL (0.00-0.029) H 01/12/22 02:03 Results - Labs CBC & Chem 7: 01/10/22 06:16 01/13/22 06:07 Labs: Laboratory Last Values WBC 6.3 K/mm3 (4.5-11.0) 01/10/22 06:16 RBC 2.92 M/mm3 (3.65-5.03) L 01/10/22 06:16 Hgb 7.9 gm/dl (10.1-14.3) L 01/10/22 06:16 Hct 25.9 % (30.3-42.9) L 01/10/22 06:16 MCV 89 fl (79-97) 01/10/22 06:16 MCH 27 pg (28-32) L 01/10/22 06:16 MCHC 31 % (30-34) 01/10/22 06:16 RDW 16.8 % (13.2-15.2) H 01/10/22 06:16 Plt Count 162 K/mm3 (140-440) 01/10/22 06:16 Lymph % (Auto) Drapery Sewer Hand 01/10/22 06:16 [place] % (Auto) Drapery Sewer Hand 01/10/22 06:16 Eos % (Auto) [place] Sewer Hand 01/10/22 06:16 Baso % (Auto) [place] Sewer Hand 01/10/22 06:16 Lymph # (Auto) [place] Sewer Hand 01/10/22 06:16 [place] # (Auto) Drapery Sewer Hand 01/10/22 06:16 Eos # (Auto) [place]y Sewer Hand 01/10/22 06:16 Baso # (Auto) [place] Sewer Hand 01/10/22 06:16 Add Manual Diff Complete 01/10/22 06:16 Total Counted 100 01/10/22 06:16 Seg Neutrophils % Drapery Sewer Hand 01/10/22 06:16 Seg Neuts % (Manual) 59.0 % (40.0-70.0) 01/10/22 06:16 Band Neutrophils % 13.0 % 01/10/22 06:16 Lymphocytes % (Manual) 8.0 % (13.4-35.0) L 01/10/22 06:16 Reactive Lymphs % (Man) 0 % 01/10/22 06:16 Monocytes % (Manual) 0 % (0.0-7.3) 01/10/22 06:16 Eosinophils % (Manual) 0 % (0.0-4.3) 01/10/22 06:16 Basophils % (Manual) 0 % (0.0-1.8) 01/10/22 06:16 Metamyelocytes % 8.0 % 01/10/22 06:16 Myelocytes % 12.0 % 01/10/22 06:16 Promyelocytes % 0 % 01/10/22 06:16 Blast Cells % 0 % 01/10/22 06:16 Nucleated RBC % Not Reportable 01/10/22 06:16 Seg Neutrophils # Drapery Sewer Hand 01/10/22 06:16 Seg Neutrophils # Man 3.7 K/mm3 (1.8-7.7) 01/10/22 06:16 Band Neutrophils # 0.8 K/mm3 01/10/22 06:16 Lymphocytes # (Manual) 0.5 K/mm3 (1.2-5.4) L 01/10/22 06:16 Abs React Lymphs (Man) 0.0 K/mm3 01/10/22 06:16 Monocytes # (Manual) 0.0 K/mm3 (0.0-0.8) 01/10/22 06:16 Eosinophils # (Manual) 0.0 K/mm3 (0.0-0.4) 01/10/22 06:16 Basophils # (Manual) 0.0 K/mm3 (0.0-0.1) 01/10/22 06:16 Metamyelocytes # 0.5 K/mm3 01/10/22 06:16 Myelocytes # 0.8 K/mm3 01/10/22 06:16 Promyelocytes # 0.0 K/mm3 01/10/22 06:16 Blast Cells # 0.0 K/mm3 01/10/22 06:16 WBC Morphology Not Reportable 01/10/22 06:16 Hypersegmented Neuts Not Reportable 01/10/22 06:16 Hyposegmented Neuts Not Reportable 01/10/22 06:16 Hypogranular Neuts Not Reportable 01/10/22 06:16 Smudge Cells Not Reportable 01/10/22 06:16 Toxic Granulation Not Reportable 01/10/22 06:16 Toxic Vacuolation Not Reportable 01/10/22 06:16 Dohle Bodies Not Reportable 01/10/22 06:16 Pelger-Huet Anomaly Not Reportable 01/10/22 06:16 Lesley Rods Not Reportable 01/10/22 06:16 Platelet Estimate Consistent w auto 01/10/22 06:16 Clumped Platelets Not Reportable 01/10/22 06:16 Plt Clumps, EDTA Not Reportable 01/10/22 06:16 Large Platelets Not Reportable 01/10/22 06:16 Giant Platelets Not Reportable 01/10/22 06:16 Platelet Satelliting Not Reportable 01/10/22 06:16 Plt Morphology Comment Not Reportable 01/10/22 06:16 RBC Morphology Not Reportable 01/10/22 06:16 Dimorphic RBCs Not Reportable 01/10/22 06:16 Polychromasia Few 01/10/22 06:16 Hypochromasia Not Reportable 01/10/22 06:16 Poikilocytosis Not Reportable 01/10/22 06:16 Anisocytosis Not Reportable 01/10/22 06:16 Microcytosis Not Reportable 01/10/22 06:16 Macrocytosis Not Reportable 01/10/22 06:16 Spherocytes Not Reportable 01/10/22 06:16 Pappenheimer Bodies Not Reportable 01/10/22 06:16 Sickle Cells Not Reportable 01/10/22 06:16 Target Cells Not Reportable 01/10/22 06:16 Tear Drop Cells Not Reportable 01/10/22 06:16 Ovalocytes Not Reportable 01/10/22 06:16 Helmet Cells Not Reportable 01/10/22 06:16 Hammonds-Ranier Bodies Not Reportable 01/10/22 06:16 [place] Rings Not Reportable 01/10/22 06:16 [place] Cells Not Reportable 01/10/22 06:16 Bite Cells Not Reportable 01/10/22 06:16 Crenated Cell Not Reportable 01/10/22 06:16 Elliptocytes Not Reportable 01/10/22 06:16 Acanthocytes (Spur) Not Reportable 01/10/22 06:16 Rouleaux Not Reportable 01/10/22 06:16 Hemoglobin C Crystals Not Reportable 01/10/22 06:16 Schistocytes Not Reportable 01/10/22 06:16 Malaria parasites Not Reportable 01/10/22 06:16 Artemio Bodies Not Reportable 01/10/22 06:16 Hem Pathologist Commnt No 01/10/22 06:16 APTT 29.2 Sec. (24.2-36.6) 01/09/22 12:50 D-Dimer 4886.79 ng/mlDDU (0-234) H 01/11/22 07:58 Sodium 154 mmol/L (137-145) H 01/13/22 06:07 Potassium 4.0 mmol/L (3.6-5.0) 01/13/22 06:07 Chloride 117.4 mmol/L (98-107) H 01/13/22 06:07 Carbon Dioxide 15 mmol/L (22-30) L 01/13/22 06:07 Anion Gap 26 mmol/L 01/13/22 06:07 BUN 184 mg/dL (7-17) H 01/13/22 06:07 Creatinine 4.5 mg/dL (0.6-1.2) H 01/13/22 06:07 Estimated GFR 12 ml/min 01/13/22 06:07 BUN/Creatinine Ratio 41 % 01/13/22 06:07 Glucose 216 mg/dL (65-100) H 01/13/22 06:07 POC Glucose 179 mg/dL (70-105) H 01/13/22 07:38 Lactic Acid 1.40 mmol/L (0.7-2.0) 01/09/22 12:50 Calcium 8.7 mg/dL (8.4-10.2) 01/13/22 06:07 Ferritin 2182.0 ng/mL (10.0-200.0) H 01/11/22 07:58 Total Bilirubin 0.20 mg/dL (0.1-1.2) 01/09/22 12:50 Direct Bilirubin < 0.2 mg/dL (0-0.2) 01/09/22 12:50 Indirect Bilirubin 0.0 mg/dL 01/09/22 12:50 AST 75 units/L (5-40) H 01/09/22 12:50 ALT 31 units/L (7-56) 01/09/22 12:50 Alkaline Phosphatase 69 units/L (35-129) 01/09/22 12:50 Lactate Dehydrogenase 332 units/L (91-180) H 01/11/22 07:58 Troponin T 0.064 ng/mL (0.00-0.029) H 01/12/22 02:03 C-Reactive Protein 30.40 mg/dL (0.00-1.30) H 01/11/22 07:58 NT-Pro-B Natriuret Pep 608.7 pg/mL (0-900) 01/09/22 12:50 Total Protein 7.9 g/dL (6.3-8.2) 01/09/22 12:50 Albumin 2.0 g/dL (3.9-5) L 01/09/22 12:50 Albumin/Globulin Ratio 0.3 % 01/09/22 12:50 Triglycerides 442 mg/dL (2-149) H 01/12/22 02:03 Cholesterol 132 mg/dL (50-199) 01/12/22 02:03 LDL Cholesterol Direct TNR 01/12/22 02:03 HDL Cholesterol 14 mg/dL (40-59) L 01/12/22 02:03 Cholesterol/HDL Ratio 9.42 % 01/12/22 02:03 Procalcitonin > 200.00 ng/mL (<0.15) 01/11/22 07:58 Urine Color Yellow (Yellow) 01/09/22 13:52 Urine Turbidity Hazy (Clear) 01/09/22 13:52 Urine pH 6.0 (5.0-7.0) 01/09/22 13:52 Ur Specific Mcdavid 1.020 (1.003-1.030) 01/09/22 13:52 Urine Protein 100 mg/dl mg/dL (Negative) 01/09/22 13:52 Urine Glucose (UA) Neg mg/dL (Negative) 01/09/22 13:52 Urine Ketones Neg mg/dL (Negative) 01/09/22 13:52 Urine Blood Neg (Negative) 01/09/22 13:52 Urine Nitrite Neg (Negative) 01/09/22 13:52 Urine Bilirubin Neg (Negative) 01/09/22 13:52 Urine Urobilinogen < 2.0 mg/dL (<2.0) 01/09/22 13:52 Ur Leukocyte Esterase Neg (Negative) 01/09/22 13:52 Urine WBC (Auto) 4.0 /HPF (0.0-6.0) 01/09/22 13:52 Urine RBC (Auto) 3.0 /HPF (0.0-6.0) 01/09/22 13:52 U Epithel Cells (Auto) 2.0 /HPF (0-13.0) 01/09/22 13:52 Urine Bacteria (Auto) 1+ /HPF (Negative) 01/09/22 13:52 Urine Mucus Few /HPF 01/09/22 13:52 Coronavirus (PCR) Positive (Negative) A 01/10/22 Unknown Blood Type B POSITIVE 01/09/22 14:37 Antibody Screen Negative 01/09/22 14:37 Microbiology: Microbiology 01/09/22 12:50 Peripheral/Venous Blood Culture - Preliminary NO GROWTH AFTER 72 HOURS 01/09/22 12:50 Peripheral/Venous Blood Culture - Preliminary NO GROWTH AFTER 72 HOURS Samuel/IV: Voiding Method Incontinent Active Medications - Current Medications Current Medications: Generic Name Dose Route Start Last Admin Trade Name Freq PRN Reason Stop Dose Admin Acetaminophen 650 mg 01/09/22 15:00 01/09/22 22:12 Acetaminophen 325 Mg Tab PO 650 mg Q4H PRN Administration Pain MILD(1-3)/Fever >100.5/RILEY Albuterol 2.5 mg 01/09/22 14:25 Albuterol 2.5 Mg/3 Ml Nebu IH Q4HRT PRN Shortness Of Breath Amlodipine Besylate 10 mg 01/12/22 12:00 01/12/22 16:25 Amlodipine 10 Mg Tab PO 10 mg QDAY JARROD Administration Ascorbic Acid 500 mg 01/09/22 22:00 01/12/22 22:15 Ascorbic Acid 500 Mg Tab PO 500 mg BID JARROD Administration Carvedilol 3.125 mg 01/12/22 12:00 01/12/22 22:15 Carvedilol 3.125 Mg Tab PO 3.125 mg BID JARROD Administration Cholecalciferol 1,000 unit 01/10/22 10:00 01/12/22 10:52 Cholecalciferol (Vit D3) 1000 Unit (25 Mcg) Tab PO 1,000 unit DAILY JARROD Administration Dextrose 0 ml 01/09/22 14:48 Dextrose 10% *Hypoglycemia IV PRN PRN Hypoglycemia Heparin Sodium (Porcine) 5,000 unit 01/09/22 22:00 01/12/22 22:06 Heparin 5,000 Unit/1 Ml Vial SUB-Q 5,000 unit Q12HR JARROD Administration Hydralazine HCl 10 mg 01/12/22 11:21 Hydralazine 20 Mg/1 Ml Inj IV Q4HR PRN Hypertension Hydromorphone HCl 0.25 mg 01/09/22 15:00 Hydromorphone 1 Mg/1 Ml Inj IV Q4H PRN Pain, Moderate (4-6) Hydromorphone HCl 0.5 mg 01/09/22 15:00 Hydromorphone 1 Mg/1 Ml Inj IV Q23H PRN Pain , Severe (7-10) Ceftriaxone Sodium 2 gm in 100 mls @ 200 mls/hr 01/09/22 16:00 01/12/22 16:29 Rocephin/Ns 2 Gm/100 Ml IV 01/13/22 16:29 200 mls/hr Q24H JARROD Administration Protocol Sodium Chloride 2,000 mls @ 130 mls/hr 01/09/22 15:00 01/10/22 05:57 Nacl 0.45% IV 130 mls/hr DIRECT JARROD Administration Doxycycline Hyclate 100 mg/ 250 mls @ 250 mls/hr 01/11/22 14:00 01/12/22 22:37 Sodium Chloride IV 01/18/22 13:59 250 mls/hr Q12HR JARROD Administration Protocol Dextrose 1,000 mls @ 125 mls/hr 01/12/22 15:00 01/13/22 05:29 D5w IV 125 mls/hr DIRECT JARROD Administration Insulin Human Regular 0 units 01/09/22 16:30 01/12/22 23:33 Insulin Regular, Human 100 Units/1 Ml SUB-Q 2 units ACHS JARROD Administration Protocol Methylprednisolone Sodium Succinate 40 mg 01/12/22 10:00 01/12/22 10:52 Methylprednisolone Sod Succinate 40 Mg/1 Ml Inj IV 40 mg QDAY JARROD Administration Ondansetron HCl 4 mg 01/09/22 16:00 Ondansetron 4 Mg/2 Ml Inj IV Q8H PRN Nausea And Vomiting Oxycodone/Acetaminophen 1 tab 01/09/22 15:00 01/11/22 21:05 Oxycodone /Acetaminophen 5-325mg Tab PO 1 tab Q16H PRN Administration Pain, Moderate (4-6) Sodium Chloride 10 ml 01/09/22 22:00 01/12/22 22:15 Sodium Chloride 0.9% 10 Ml Flush Syringe IV 10 ml BID JARROD Administration Sodium Chloride 10 ml 01/09/22 15:00 Sodium Chloride 0.9% 10 Ml Flush Syringe IV PRN PRN LINE FLUSH Zinc Sulfate 220 mg 01/09/22 22:00 01/12/22 22:16 Zinc Sulfate 220 Mg Cap PO 220 mg BID JARROD Administration Nutrition/Malnutrition Assess - Dietary Evaluation Nutrition/Malnutrition Findings: Nutrition Notes Start: 01/10/22 13:52 Freq: Status: Active Protocol: Document 01/11/22 10:54 [facility] (Rec: 01/11/22 11:02 NHALL [id number]) Nutrition 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 Burn Absent Trauma Absent Minimum of two criteria Yes Energy Intake (severe) < or equal to 50% Estimated Energy Requirement > or equal to 5 days Body Fat Depletion Moderate depletion (severe) Protein-Calorie Malnutrition Severe #1 Nutrition Diagnosis Underweight Diagnosis Progress(for reassessment Continues documentation) Is patient on ventilator? No Is Patient Ambulatory and/or Out of Bed No REE-([place]-confined to bed) 1223.568 Kcal/Kg value to use for calculation 35 Approximate Energy Requirements Using 1680 kcal/Kg Calculation Used for Recommendations Kcal/kg Additional Notes Pro needs 0.8-1.2g/k-58g/ day Fluid needs per MD Nutrition Intervention Nutrition Support: Change TF formula to Nepro at 30ml/hr with 130ml water flush q4h. Kcal 1,296 Protein (gm) 58 Carbohydrates (gm) 116 Fat (gm) 69 Fluid (mL) 523 Fiber (gm) 9 Goal #1 TF tolerance Goal #2 TF to meet 100% energy and pro needs Goal #3 Wt maintenance and/or gain Follow-Up By: 01/14/22 Additional Comments F/U: TF tolerance, TF formula change, renal function
[2022-01-13] MEDS: INSULIN REGULAR, HUMAN 100 UNITS/1 ML SUB-Q SCH ×4 (08:50→22:46)
[2022-01-13] MEDS: DOXYCYCLINE HYCLATE 100 MG in SODIUM CHLORIDE 0.9% 250ML 250 ML IV SCH ×2 (09:07→23:07)
[2022-01-13] MEDS: CHOLECALCIFEROL (VIT D3) 1000 UNIT (25 mcg) TAB PO SCH (09:09)
[2022-01-13] MEDS: methylPREDNISolone Sod Succinate 40 MG/1 ML INJ IV SCH (09:09)
[2022-01-13] MEDS: carvediloL 3.125 MG TAB PO SCH ×2 (09:09→22:43)
[2022-01-13] MEDS: ASCORBIC ACID 500 MG TAB PO SCH ×2 (09:09→22:44)
[2022-01-13] MEDS: amLODIPine 10 MG TAB PO SCH (09:09)
[2022-01-13] MEDS: ZINC SULFATE 220 MG CAP PO SCH ×2 (09:09→22:43)
[2022-01-13] MEDS: HEPARIN 5,000 UNIT/1 ML VIAL SUB-Q SCH ×2 (09:10→22:43)
--- NOTE | 2022-01-13 14:04 | Progress Note ---
Assessment and Plan Impression: * Acute kidney injury secondary to COVID related ATN * Azotemia secondary to multifactorial etiologies: KELSIE vs steroids * Hypernatremia * Acute hypoxic respiratory failure secondary to COVID 19 PNA * COVID 19 infection Plan: * No improvement in renal function. Contacted patient's daughter/NOK/SHILPAA, Ananya Galvan at [phone]. Clinical update provided. She was informed of continued decline in renal function despite conservative measures and need for dialysis; daughter consents to dialysis. * Will consult vascular surgery for vascath placement tomorrow * HD tomorrow following vascath * Continue D5W 125ml/hour * Continue free water w/ tube feeds * Steroids per primary team * Management of COVID 19 per primary team * Avoid potential nephrotoxins * Dose medications for renal function Subjective Date of service: 01/13/22 Interval history: No acute events overnight. Objective - Vital Signs Vital signs: Vital Signs - 12hr 01/13/22 01/13/22 01/13/22 05:03 07:04 08:50 Temperature 97.5 F L Pulse Rate 89 Respiratory 18 Rate Blood Pressure 147/83 O2 Sat by Pulse 99 98 100 Oximetry 01/13/22 01/13/22 09:08 12:05 Temperature 98.6 F 98.1 F Pulse Rate 50 L 50 L Respiratory 22 18 Rate Blood Pressure 151/71 161/71 O2 Sat by Pulse 100 100 Oximetry - General Appearance General appearance: well-developed, frail EENT: ATNC, mucous membranes dry Respiratory: Present: Clear to Ascultation Cardiology: regular, S1S2 Gastrointestinal: normal, no tenderness, no distended Neurologic: other (awake, tracks) - Lab 01/10/22 06:16 01/13/22 06:07 Most recent lab results Calcium 8.7 mg/dL (8.4-10.2) 01/13/22 06:07 Medications & Allergies - Medications Allergies/Adverse Reactions: Allergies No Known Allergies Allergy (Verified 01/09/22 11:43) Home Medications: Home Medications Medication Instructions Recorded Confirmed Last Taken Type amLODIPine 10 mg PO QDAY #30 tablet 03/09/21 01/09/22 Unknown Rx carvediloL [Coreg] 3.125 mg PO BID #60 tablet 03/09/21 01/09/22 Unknown Rx Active Medications: Generic Name Dose Route Start Last Admin Trade Name Freq PRN Reason Stop Dose Admin Acetaminophen 650 mg 01/09/22 15:00 01/09/22 22:12 Acetaminophen 325 Mg Tab PO 650 mg Q4H PRN Administration Pain MILD(1-3)/Fever >100.5/RILEY Albuterol 2.5 mg 01/09/22 14:25 Albuterol 2.5 Mg/3 Ml Nebu IH Q4HRT PRN Shortness Of Breath Amlodipine Besylate 10 mg 01/12/22 12:00 01/13/22 09:09 Amlodipine 10 Mg Tab PO 10 mg QDAY JARROD Administration Ascorbic Acid 500 mg 01/09/22 22:00 01/13/22 09:09 Ascorbic Acid 500 Mg Tab PO 500 mg BID JARROD Administration Carvedilol 3.125 mg 01/12/22 12:00 01/13/22 09:09 Carvedilol 3.125 Mg Tab PO 3.125 mg BID JARROD Administration Cholecalciferol 1,000 unit 01/10/22 10:00 01/13/22 09:09 Cholecalciferol (Vit D3) 1000 Unit (25 Mcg) Tab PO 1,000 unit DAILY JARROD Administration Dextrose 0 ml 01/09/22 14:48 Dextrose 10% *Hypoglycemia IV PRN PRN Hypoglycemia Heparin Sodium (Porcine) 5,000 unit 01/09/22 22:00 01/13/22 09:10 Heparin 5,000 Unit/1 Ml Vial SUB-Q 5,000 unit Q12HR JARRDO Administration Hydralazine HCl 10 mg 01/12/22 11:21 Hydralazine 20 Mg/1 Ml Inj IV Q4HR PRN Hypertension Hydromorphone HCl 0.25 mg 01/09/22 15:00 Hydromorphone 1 Mg/1 Ml Inj IV Q4H PRN Pain, Moderate (4-6) Hydromorphone HCl 0.5 mg 01/09/22 15:00 Hydromorphone 1 Mg/1 Ml Inj IV Q23H PRN Pain , Severe (7-10) Ceftriaxone Sodium 2 gm in 100 mls @ 200 mls/hr 01/09/22 16:00 01/12/22 16:29 Rocephin/Ns 2 Gm/100 Ml IV 01/13/22 16:29 200 mls/hr Q24H JARROD Administration Protocol Sodium Chloride 2,000 mls @ 130 mls/hr 01/09/22 15:00 01/10/22 05:57 Nacl 0.45% IV 130 mls/hr DIRECT JARROD Administration Doxycycline Hyclate 100 mg/ 250 mls @ 250 mls/hr 01/11/22 14:00 01/13/22 09:07 Sodium Chloride IV 01/18/22 13:59 250 mls/hr Q12HR JARROD Administration Protocol Dextrose 1,000 mls @ 125 mls/hr 01/12/22 15:00 01/13/22 05:29 D5w IV 125 mls/hr DIRECT JARROD Administration Insulin Human Regular 0 units 01/09/22 16:30 01/13/22 12:09 Insulin Regular, Human 100 Units/1 Ml SUB-Q 2 units ACHS JARROD Administration Protocol Methylprednisolone Sodium Succinate 40 mg 01/12/22 10:00 01/13/22 09:09 Methylprednisolone Sod Succinate 40 Mg/1 Ml Inj IV 40 mg QDAY JARROD Administration Ondansetron HCl 4 mg 01/09/22 16:00 Ondansetron 4 Mg/2 Ml Inj IV Q8H PRN Nausea And Vomiting Oxycodone/Acetaminophen 1 tab 01/09/22 15:00 01/11/22 21:05 Oxycodone /Acetaminophen 5-325mg Tab PO 1 tab Q16H PRN Administration Pain, Moderate (4-6) Sodium Chloride 10 ml 01/09/22 22:00 01/13/22 09:10 Sodium Chloride 0.9% 10 Ml Flush Syringe IV 10 ml BID JARROD Administration Sodium Chloride 10 ml 01/09/22 15:00 Sodium Chloride 0.9% 10 Ml Flush Syringe IV PRN PRN LINE FLUSH Zinc Sulfate 220 mg 01/09/22 22:00 01/13/22 09:09 Zinc Sulfate 220 Mg Cap PO 220 mg BID JARROD Administration
[2022-01-13] MEDS ORDERED: SODIUM CHLORIDE 0.9% 100 ML IV PRN (15:22)
[2022-01-13] MEDS: cefTRIAXone/NS 2 GM/100 ML 2 GM/100 ML BAG IV SCH (16:18)
[2022-01-14] MEDS: FREE WATER PO SCH ×5 (03:46→21:55)
[2022-01-14 07:16] LABS: Hepatitis B Surface Antigen Non-Reactive (Negative); Hepatitis C Virus Antibody Non-Reactive (NonReactive)
[2022-01-14] MEDS: INSULIN REGULAR, HUMAN 100 UNITS/1 ML SUB-Q SCH ×4 (08:19→23:19)
[2022-01-14] MEDS: methylPREDNISolone Sod Succinate 40 MG/1 ML INJ IV SCH (09:32)
[2022-01-14] MEDS: amLODIPine 10 MG TAB PO SCH (09:32)
[2022-01-14] MEDS: carvediloL 3.125 MG TAB PO SCH ×2 (09:32→21:17)
[2022-01-14] MEDS: HEPARIN 5,000 UNIT/1 ML VIAL SUB-Q SCH ×2 (10:00→21:17)
[2022-01-14] MEDS: DEXTROSE 5% IN WATER 1,000 ML IV SCH (11:12)
--- NOTE | 2022-01-14 12:05 | Progress Note ---
Assessment and Plan Assessment and plan: #Sepsis -improving #COVID-19 infection #Pneumonia -Blood cultures NGTD so far; UCx negative -continue doxycycline and rocephin -continue steroids; vitamins for COVID infection not a candidate for remdesivir due to kidney function -ID following, assistance appreciated #Acute respiratory failure with hypoxia-improving -currently weaned to RA -continuous pulse ox -likely secondary to COVID PNA vs bacterial PNA -continue steroids day 5 of 10 #Acute metabolic encephalopathy-resolved #hx of Vascular dementia #Cerebral atherosclerosis -multifactorial; acute change likely secondary to infection -will continue to monitor #Acute kidney injury-worsening -SCr 3.9 today -Renal US showed medical renal disease -avoid nephrotoxins and will renally dose medications -Nephrology following, assistance appreciated -Consented to start HD, Vas-Cath to be placed by vascular surgery today #Metabolic acidosis -secondary to renal failure #Dysphagia -Currently with PEG tube -continue tube feeds -Nutrition consult #Severe protein-calorie malnutrition -albumin 2.0 -continue TF, Nutrition managing #Sacral decubitus ulcer -Continue wound care #Discharge planning #Advance care planning -Patient to return to [facility] once medically stable History Interval history: No acute events overnight per nursing. Patient on room air. Alert but not conversant today. Hospitalist Physical - Physical exam Narrative exam: GENERAL: Cachexic. In no acute distress. HEENT:Dry mucus membranes NECK: RIJ Vasc cath CHEST/LUNGS: CTAB on RA HEART/CARDIOVASCULAR: RRR. No murmur, rubs or gallops appreciated. ABDOMEN: PEG tube. +BS. NT/ND. NEURO: Unable to assess. MUSCULOSKELETAL: No joint effusion EXTREMITIES: No cyanosis, clubbing or edema. PSYCH: Cooperative. - Constitutional Vitals: Temp Pulse Resp BP Pulse Ox 97.9 F 76 20 167/84 97 01/14/22 05:57 01/14/22 05:57 01/14/22 05:57 01/14/22 05:57 01/14/22 07:58 General appearance: Present: mild distress, cachectic HEART Score - HEART Score Troponin: Troponin T 0.064 ng/mL (0.00-0.029) H 01/12/22 02:03 Results - Labs CBC & Chem 7: 01/10/22 06:16 01/14/22 08:18 Labs: Laboratory Last Values WBC 6.3 K/mm3 (4.5-11.0) 01/10/22 06:16 RBC 2.92 M/mm3 (3.65-5.03) L 01/10/22 06:16 Hgb 7.9 gm/dl (10.1-14.3) L 01/10/22 06:16 Hct 25.9 % (30.3-42.9) L 01/10/22 06:16 MCV 89 fl (79-97) 01/10/22 06:16 MCH 27 pg (28-32) L 01/10/22 06:16 MCHC 31 % (30-34) 01/10/22 06:16 RDW 16.8 % (13.2-15.2) H 01/10/22 06:16 Plt Count 162 K/mm3 (140-440) 01/10/22 06:16 Lymph % (Auto) [employer] 01/10/22 06:16 [place] % (Auto) [employer] 01/10/22 06:16 Eos % (Auto) [employer] 01/10/22 06:16 Baso % (Auto) [employer] 01/10/22 06:16 Lymph # (Auto) [employer] 01/10/22 06:16 [place] # (Auto) [employer] 01/10/22 06:16 Eos # (Auto) [employer] 01/10/22 06:16 Baso # (Auto) [employer] 01/10/22 06:16 Add Manual Diff Complete 01/10/22 06:16 Total Counted 100 01/10/22 06:16 Seg Neutrophils % [employer] 01/10/22 06:16 Seg Neuts % (Manual) 59.0 % (40.0-70.0) 01/10/22 06:16 Band Neutrophils % 13.0 % 01/10/22 06:16 Lymphocytes % (Manual) 8.0 % (13.4-35.0) L 01/10/22 06:16 Reactive Lymphs % (Man) 0 % 01/10/22 06:16 Monocytes % (Manual) 0 % (0.0-7.3) 01/10/22 06:16 Eosinophils % (Manual) 0 % (0.0-4.3) 01/10/22 06:16 Basophils % (Manual) 0 % (0.0-1.8) 01/10/22 06:16 Metamyelocytes % 8.0 % 01/10/22 06:16 Myelocytes % 12.0 % 01/10/22 06:16 Promyelocytes % 0 % 01/10/22 06:16 Blast Cells % 0 % 01/10/22 06:16 Nucleated RBC % Not Reportable 01/10/22 06:16 Seg Neutrophils # [employer] 01/10/22 06:16 Seg Neutrophils # Man 3.7 K/mm3 (1.8-7.7) 01/10/22 06:16 Band Neutrophils # 0.8 K/mm3 01/10/22 06:16 Lymphocytes # (Manual) 0.5 K/mm3 (1.2-5.4) L 01/10/22 06:16 Abs React Lymphs (Man) 0.0 K/mm3 01/10/22 06:16 Monocytes # (Manual) 0.0 K/mm3 (0.0-0.8) 01/10/22 06:16 Eosinophils # (Manual) 0.0 K/mm3 (0.0-0.4) 01/10/22 06:16 Basophils # (Manual) 0.0 K/mm3 (0.0-0.1) 01/10/22 06:16 Metamyelocytes # 0.5 K/mm3 01/10/22 06:16 Myelocytes # 0.8 K/mm3 01/10/22 06:16 Promyelocytes # 0.0 K/mm3 01/10/22 06:16 Blast Cells # 0.0 K/mm3 01/10/22 06:16 WBC Morphology Not Reportable 01/10/22 06:16 Hypersegmented Neuts Not Reportable 01/10/22 06:16 Hyposegmented Neuts Not Reportable 01/10/22 06:16 Hypogranular Neuts Not Reportable 01/10/22 06:16 Smudge Cells Not Reportable 01/10/22 06:16 Toxic Granulation Not Reportable 01/10/22 06:16 Toxic Vacuolation Not Reportable 01/10/22 06:16 Dohle Bodies Not Reportable 01/10/22 06:16 Pelger-Huet Anomaly Not Reportable 01/10/22 06:16 Lesley Rods Not Reportable 01/10/22 06:16 Platelet Estimate Consistent w auto 01/10/22 06:16 Clumped Platelets Not Reportable 01/10/22 06:16 Plt Clumps, EDTA Not Reportable 01/10/22 06:16 Large Platelets Not Reportable 01/10/22 06:16 Giant Platelets Not Reportable 01/10/22 06:16 Platelet Satelliting Not Reportable 01/10/22 06:16 Plt Morphology Comment Not Reportable 01/10/22 06:16 RBC Morphology Not Reportable 01/10/22 06:16 Dimorphic RBCs Not Reportable 01/10/22 06:16 Polychromasia Few 01/10/22 06:16 Hypochromasia Not Reportable 01/10/22 06:16 Poikilocytosis Not Reportable 01/10/22 06:16 Anisocytosis Not Reportable 01/10/22 06:16 Microcytosis Not Reportable 01/10/22 06:16 Macrocytosis Not Reportable 01/10/22 06:16 Spherocytes Not Reportable 01/10/22 06:16 Pappenheimer Bodies Not Reportable 01/10/22 06:16 Sickle Cells Not Reportable 01/10/22 06:16 Target Cells Not Reportable 01/10/22 06:16 Tear Drop Cells Not Reportable 01/10/22 06:16 Ovalocytes Not Reportable 01/10/22 06:16 Helmet Cells Not Reportable 01/10/22 06:16 Hammonds-Lehighton Bodies Not Reportable 01/10/22 06:16 [place] Rings Not Reportable 01/10/22 06:16 Culbertson Cells Not Reportable 01/10/22 06:16 Bite Cells Not Reportable 01/10/22 06:16 Crenated Cell Not Reportable 01/10/22 06:16 Elliptocytes Not Reportable 01/10/22 06:16 Acanthocytes (Spur) Not Reportable 01/10/22 06:16 Rouleaux Not Reportable 01/10/22 06:16 Hemoglobin C Crystals Not Reportable 01/10/22 06:16 Schistocytes Not Reportable 01/10/22 06:16 Malaria parasites Not Reportable 01/10/22 06:16 Artemio Bodies Not Reportable 01/10/22 06:16 Hem Pathologist Commnt No 01/10/22 06:16 APTT 29.2 Sec. (24.2-36.6) 01/09/22 12:50 D-Dimer 4886.79 ng/mlDDU (0-234) H 01/11/22 07:58 Sodium 143 mmol/L (137-145) D 01/14/22 08:18 Potassium 3.4 mmol/L (3.6-5.0) L 01/14/22 08:18 Chloride 108.8 mmol/L (98-107) H 01/14/22 08:18 Carbon Dioxide 14 mmol/L (22-30) L 01/14/22 08:18 Anion Gap 24 mmol/L 01/14/22 08:18 BUN 174 mg/dL (7-17) H 01/14/22 08:18 Creatinine 3.9 mg/dL (0.6-1.2) H 01/14/22 08:18 Estimated GFR 14 ml/min 01/14/22 08:18 BUN/Creatinine Ratio 45 % 01/14/22 08:18 Glucose 116 mg/dL (65-100) H 01/14/22 08:18 POC Glucose 114 mg/dL (70-105) H 01/14/22 05:59 Lactic Acid 1.40 mmol/L (0.7-2.0) 01/09/22 12:50 Calcium 8.0 mg/dL (8.4-10.2) L 01/14/22 08:18 Ferritin 2182.0 ng/mL (10.0-200.0) H 01/11/22 07:58 Total Bilirubin 0.20 mg/dL (0.1-1.2) 01/09/22 12:50 Direct Bilirubin < 0.2 mg/dL (0-0.2) 01/09/22 12:50 Indirect Bilirubin 0.0 mg/dL 01/09/22 12:50 AST 75 units/L (5-40) H 01/09/22 12:50 ALT 31 units/L (7-56) 01/09/22 12:50 Alkaline Phosphatase 69 units/L (35-129) 01/09/22 12:50 Lactate Dehydrogenase 332 units/L (91-180) H 01/11/22 07:58 Troponin T 0.064 ng/mL (0.00-0.029) H 01/12/22 02:03 C-Reactive Protein 30.40 mg/dL (0.00-1.30) H 01/11/22 07:58 NT-Pro-B Natriuret Pep 608.7 pg/mL (0-900) 01/09/22 12:50 Total Protein 7.9 g/dL (6.3-8.2) 01/09/22 12:50 Albumin 2.0 g/dL (3.9-5) L 01/09/22 12:50 Albumin/Globulin Ratio 0.3 % 01/09/22 12:50 Triglycerides 442 mg/dL (2-149) H 01/12/22 02:03 Cholesterol 132 mg/dL (50-199) 01/12/22 02:03 LDL Cholesterol Direct TNR 01/12/22 02:03 HDL Cholesterol 14 mg/dL (40-59) L 01/12/22 02:03 Cholesterol/HDL Ratio 9.42 % 01/12/22 02:03 Procalcitonin > 200.00 ng/mL (<0.15) 01/11/22 07:58 Urine Color Yellow (Yellow) 01/09/22 13:52 Urine Turbidity Hazy (Clear) 01/09/22 13:52 Urine pH 6.0 (5.0-7.0) 01/09/22 13:52 Ur Specific [place] 1.020 (1.003-1.030) 01/09/22 13:52 Urine Protein 100 mg/dl mg/dL (Negative) 01/09/22 13:52 Urine Glucose (UA) Neg mg/dL (Negative) 01/09/22 13:52 Urine Ketones Neg mg/dL (Negative) 01/09/22 13:52 Urine Blood Neg (Negative) 01/09/22 13:52 Urine Nitrite Neg (Negative) 01/09/22 13:52 Urine Bilirubin Neg (Negative) 01/09/22 13:52 Urine Urobilinogen < 2.0 mg/dL (<2.0) 01/09/22 13:52 Ur Leukocyte Esterase Neg (Negative) 01/09/22 13:52 Urine WBC (Auto) 4.0 /HPF (0.0-6.0) 01/09/22 13:52 Urine RBC (Auto) 3.0 /HPF (0.0-6.0) 01/09/22 13:52 U Epithel Cells (Auto) 2.0 /HPF (0-13.0) 01/09/22 13:52 Urine Bacteria (Auto) 1+ /HPF (Negative) 01/09/22 13:52 Urine Mucus Few /HPF 01/09/22 13:52 Coronavirus (PCR) Positive (Negative) A 01/10/22 Unknown Hepatitis A IgM Ab Non-reactive (NonReactive) 01/14/22 Unknown Hep Bs Antigen Non-reactive (Negative) 01/14/22 Unknown Hep B Core IgM Ab Non-reactive (NonReactive) 01/14/22 Unknown Hepatitis C Antibody Non-reactive (NonReactive) 01/14/22 Unknown Blood Type B POSITIVE 01/09/22 14:37 Antibody Screen Negative 01/09/22 14:37 Microbiology: Microbiology 01/09/22 12:50 Peripheral/Venous Blood Culture - Preliminary NO GROWTH AFTER 4 DAYS 01/09/22 12:50 Peripheral/Venous Blood Culture - Preliminary NO GROWTH AFTER 4 DAYS Samuel/IV: Voiding Method Incontinent Active Medications - Current Medications Current Medications: Generic Name Dose Route Start Last Admin Trade Name Freq PRN Reason Stop Dose Admin Acetaminophen 650 mg 01/09/22 15:00 01/09/22 22:12 Acetaminophen 325 Mg Tab PO 650 mg Q4H PRN Administration Pain MILD(1-3)/Fever >100.5/RILEY Albuterol 2.5 mg 01/09/22 14:25 Albuterol 2.5 Mg/3 Ml Nebu IH Q4HRT PRN Shortness Of Breath Amlodipine Besylate 10 mg 01/12/22 12:00 01/14/22 09:32 Amlodipine 10 Mg Tab PO 10 mg QDAY JARROD Administration Ascorbic Acid 500 mg 01/09/22 22:00 01/13/22 22:44 Ascorbic Acid 500 Mg Tab PO 500 mg BID JARROD Administration Carvedilol 3.125 mg 01/12/22 12:00 01/14/22 09:32 Carvedilol 3.125 Mg Tab PO 3.125 mg BID JARROD Administration Cholecalciferol 1,000 unit 01/10/22 10:00 01/13/22 09:09 Cholecalciferol (Vit D3) 1000 Unit (25 Mcg) Tab PO 1,000 unit DAILY JARROD Administration Dextrose 0 ml 01/09/22 14:48 Dextrose 10% *Hypoglycemia IV PRN PRN Hypoglycemia Heparin Sodium (Porcine) 5,000 unit 01/09/22 22:00 01/13/22 22:43 Heparin 5,000 Unit/1 Ml Vial SUB-Q 5,000 unit Q12HR JARROD Administration Hydralazine HCl 10 mg 01/12/22 11:21 Hydralazine 20 Mg/1 Ml Inj IV Q4HR PRN Hypertension Hydromorphone HCl 0.25 mg 01/09/22 15:00 Hydromorphone 1 Mg/1 Ml Inj IV Q4H PRN Pain, Moderate (4-6) Hydromorphone HCl 0.5 mg 01/09/22 15:00 Hydromorphone 1 Mg/1 Ml Inj IV Q23H PRN Pain , Severe (7-10) Sodium Chloride 2,000 mls @ 130 mls/hr 01/09/22 15:00 01/10/22 05:57 Nacl 0.45% IV 130 mls/hr DIRECT JARROD Administration Doxycycline Hyclate 100 mg/ 250 mls @ 250 mls/hr 01/11/22 14:00 01/13/22 23:07 Sodium Chloride IV 01/17/22 22:59 250 mls/hr Q12HR JARROD Administration Protocol Dextrose 1,000 mls @ 125 mls/hr 01/12/22 15:00 01/14/22 11:12 D5w IV 125 mls/hr DIRECT JARROD Administration Sodium Chloride 100 mls @ 999 mls/hr 01/13/22 15:22 Nacl 0.9% IV MYRNA PRN Hypotension Insulin Human Regular 0 units 01/09/22 16:30 01/14/22 08:19 Insulin Regular, Human 100 Units/1 Ml SUB-Q Not Given ACHS JARROD Protocol Methylprednisolone Sodium Succinate 40 mg 01/12/22 10:00 01/14/22 09:32 Methylprednisolone Sod Succinate 40 Mg/1 Ml Inj IV 40 mg QDAY JARROD Administration Ondansetron HCl 4 mg 01/09/22 16:00 Ondansetron 4 Mg/2 Ml Inj IV Q8H PRN Nausea And Vomiting Oxycodone/Acetaminophen 1 tab 01/09/22 15:00 01/11/22 21:05 Oxycodone /Acetaminophen 5-325mg Tab PO 1 tab Q16H PRN Administration Pain, Moderate (4-6) Sodium Chloride 10 ml 01/09/22 22:00 01/14/22 09:33 Sodium Chloride 0.9% 10 Ml Flush Syringe IV 10 ml BID JARROD Administration Sodium Chloride 10 ml 01/09/22 15:00 Sodium Chloride 0.9% 10 Ml Flush Syringe IV PRN PRN LINE FLUSH Zinc Sulfate 220 mg 01/09/22 22:00 01/13/22 22:43 Zinc Sulfate 220 Mg Cap PO 220 mg BID JARROD Administration Nutrition/Malnutrition Assess - Dietary Evaluation Nutrition/Malnutrition Findings: Nutrition Notes Start: 01/10/22 13:52 Freq: Status: Active Protocol: Document 01/14/22 11:29 [facility] (Rec[facility]14/22 11:[id number] Nutrition Notes Initial or Follow up Reassessment Current Diagnosis Acute Kidney Injury, Respiratory Failure Other Pertinent Diagnosis Vascular dementia, COVID-19 (+ ) Current Diet NPO Labs/Tests K 3.4 BUN 174 Cr 3.9 Na 143 Pertinent Medications D5W at 125ml/hr Height 5 ft 4 in Weight 48 kg [place] Body Weight (kg) 54.54 BMI 18.1 Weight Status Underweight Subjective/Other Information Per RN report last pm, pt tolerating Nepro at goal rate with no gastric residuals. Pt NPO for VasCath placement today. Per nephrology, renal function declining and pt will need HD. Burn Absent Trauma Absent Minimum of two criteria Yes #1 Nutrition Diagnosis Underweight Diagnosis Progress(for reassessment Continues documentation) Is patient on ventilator? No Is Patient Ambulatory and/or Out of Bed No REE-([place]-confined to bed) 1223.568 Kcal/Kg value to use for calculation 35 Approximate Energy Requirements Using 1680 kcal/Kg Calculation Used for Recommendations Kcal/kg Additional Notes Pro needs >1.2g/kg: >58g/day Fluid needs 1-1.5L/day Nutrition Intervention Nutrition Support: Resume TF when medically feasible (Nepro at 30ml/hr with 130ml water flush q4h). Goal #1 Restart TF to meet nutrient needs Follow-Up By: 01/15/22 Additional Comments F/U: TF restart, initiation of HD, put TF order back in [email or web address]
--- NOTE | 2022-01-14 12:13 | Progress Note ---
Assessment and Plan Impression: * Acute kidney injury secondary to COVID related ATN * Azotemia secondary to multifactorial etiologies: KELSIE vs steroids * Hypernatremia * Acute hypoxic respiratory failure secondary to COVID 19 PNA * COVID 19 infection Plan: * Note mild improvement in renal function- BUN 184->174, creatinine 4.5->3.9. Does remain acidemic however, minimal urine output noted * Dr. Hurley updated patient's daughter/NOK/POA 01/13 Ananya Galvan at [phone], daughter consents to dialysis. * Will proceed with vascath placement today, appreciate vascular surgery * Will hold HD for now given renal indices, but still likely to need in next day or so * Continue 1/2NS for now, add HCO3 bolus as well to assess response * Continue D5W 125ml/hour * Continue free water w/ tube feeds * Steroids per primary team * Management of COVID 19 per primary team * Avoid potential nephrotoxins * Dose medications for renal function Subjective Date of service: 01/14/22 Interval history: No acute events noted, patient resting in bed. Chart/vitals/labs reviewed in detail Objective - Exam Narrative Exam: General appearance: frail EENT: ATNC, mucous membranes dry Respiratory: Present: Clear to Ascultation Cardiology: regular, S1S2 Gastrointestinal: normal, no tenderness, no distended Neurologic: other (awake, tracks) - Vital Signs Vital signs: Vital Signs - 12hr 01/14/22 01/14/22 05:57 07:58 Temperature 97.9 F Pulse Rate 76 Respiratory 20 Rate Blood Pressure 167/84 O2 Sat by Pulse 98 97 Oximetry - Lab 01/10/22 06:16 01/14/22 08:18 Most recent lab results Calcium 8.0 mg/dL (8.4-10.2) L 01/14/22 08:18 Medications & Allergies - Medications Allergies/Adverse Reactions: Allergies No Known Allergies Allergy (Verified 01/09/22 11:43) Home Medications: Home Medications Medication Instructions Recorded Confirmed Last Taken Type amLODIPine 10 mg PO QDAY #30 tablet 03/09/21 01/09/22 Unknown Rx carvediloL [Coreg] 3.125 mg PO BID #60 tablet 03/09/21 01/09/22 Unknown Rx Active Medications: Generic Name Dose Route Start Last Admin Trade Name Freq PRN Reason Stop Dose Admin Acetaminophen 650 mg 01/09/22 15:00 01/09/22 22:12 Acetaminophen 325 Mg Tab PO 650 mg Q4H PRN Administration Pain MILD(1-3)/Fever >100.5/RILEY Albuterol 2.5 mg 01/09/22 14:25 Albuterol 2.5 Mg/3 Ml Nebu IH Q4HRT PRN Shortness Of Breath Amlodipine Besylate 10 mg 01/12/22 12:00 01/14/22 09:32 Amlodipine 10 Mg Tab PO 10 mg QDAY JARROD Administration Ascorbic Acid 500 mg 01/09/22 22:00 01/13/22 22:44 Ascorbic Acid 500 Mg Tab PO 500 mg BID JARROD Administration Carvedilol 3.125 mg 01/12/22 12:00 01/14/22 09:32 Carvedilol 3.125 Mg Tab PO 3.125 mg BID JARROD Administration Cholecalciferol 1,000 unit 01/10/22 10:00 01/13/22 09:09 Cholecalciferol (Vit D3) 1000 Unit (25 Mcg) Tab PO 1,000 unit DAILY JARROD Administration Dextrose 0 ml 01/09/22 14:48 Dextrose 10% *Hypoglycemia IV PRN PRN Hypoglycemia Heparin Sodium (Porcine) 5,000 unit 01/09/22 22:00 01/13/22 22:43 Heparin 5,000 Unit/1 Ml Vial SUB-Q 5,000 unit Q12HR JARROD Administration Hydralazine HCl 10 mg 01/12/22 11:21 Hydralazine 20 Mg/1 Ml Inj IV Q4HR PRN Hypertension Hydromorphone HCl 0.25 mg 01/09/22 15:00 Hydromorphone 1 Mg/1 Ml Inj IV Q4H PRN Pain, Moderate (4-6) Hydromorphone HCl 0.5 mg 01/09/22 15:00 Hydromorphone 1 Mg/1 Ml Inj IV Q23H PRN Pain , Severe (7-10) Sodium Chloride 2,000 mls @ 130 mls/hr 01/09/22 15:00 01/10/22 05:57 Nacl 0.45% IV 130 mls/hr DIRECT JARROD Administration Doxycycline Hyclate 100 mg/ 250 mls @ 250 mls/hr 01/11/22 14:00 01/13/22 23:07 Sodium Chloride IV 01/17/22 22:59 250 mls/hr Q12HR JARROD Administration Protocol Dextrose 1,000 mls @ 125 mls/hr 01/12/22 15:00 01/14/22 11:12 D5w IV 125 mls/hr DIRECT JARROD Administration Sodium Chloride 100 mls @ 999 mls/hr 01/13/22 15:22 Nacl 0.9% IV MYRNA PRN Hypotension Insulin Human Regular 0 units 01/09/22 16:30 01/14/22 08:19 Insulin Regular, Human 100 Units/1 Ml SUB-Q Not Given ACHS JARROD Protocol Methylprednisolone Sodium Succinate 40 mg 01/12/22 10:00 01/14/22 09:32 Methylprednisolone Sod Succinate 40 Mg/1 Ml Inj IV 40 mg QDAY JARROD Administration Ondansetron HCl 4 mg 01/09/22 16:00 Ondansetron 4 Mg/2 Ml Inj IV Q8H PRN Nausea And Vomiting Oxycodone/Acetaminophen 1 tab 01/09/22 15:00 01/11/22 21:05 Oxycodone /Acetaminophen 5-325mg Tab PO 1 tab Q16H PRN Administration Pain, Moderate (4-6) Sodium Chloride 10 ml 01/09/22 22:00 01/14/22 09:33 Sodium Chloride 0.9% 10 Ml Flush Syringe IV 10 ml BID JARROD Administration Sodium Chloride 10 ml 01/09/22 15:00 Sodium Chloride 0.9% 10 Ml Flush Syringe IV PRN PRN LINE FLUSH Zinc Sulfate 220 mg 01/09/22 22:00 01/13/22 22:43 Zinc Sulfate 220 Mg Cap PO 220 mg BID JARROD Administration
[2022-01-14] MEDS ORDERED: SODIUM BICARB 8.4% 50 MEQ/50 ML SYRINGE IV ONE (12:17)
[2022-01-14] MEDS ORDERED: SODIUM BICARB 8.4% 50 MEQ/50 ML VIAL IV NR (12:45)
[2022-01-14] MEDS: ASCORBIC ACID 500 MG TAB PO SCH ×2 (12:49→21:17)
[2022-01-14] MEDS: ZINC SULFATE 220 MG CAP PO SCH ×2 (12:49→21:17)
[2022-01-14] MEDS: CHOLECALCIFEROL (VIT D3) 1000 UNIT (25 mcg) TAB PO SCH (12:49)
[2022-01-14] MEDS: DOXYCYCLINE HYCLATE 100 MG in SODIUM CHLORIDE 0.9% 250ML 250 ML IV SCH ×2 (12:58→21:47)
[2022-01-14] MEDS ORDERED: HEPARIN/NS 5000 UNIT/500ML 1,000 ML IR ONE (14:52)
[2022-01-14] MEDS ORDERED: HEPARIN 10,000 UNITS/10 ML VIAL ONE (14:53)
[2022-01-14] MEDS ORDERED: SODIUM CHLORIDE 0.9% 250ML 250 ML ONE (14:54)
[2022-01-14] MEDS ORDERED: LIDOCAINE (2%) 20 MG/1 ML VIAL 20 ML MDV INFILTRATI ONE ×2 (14:56→16:45)
--- NOTE | 2022-01-14 16:05 | Progress Note ---
Assessment and Plan Cultures: SARS CoV2 PCR: Positive 01/09/2022 blood culture: No growth A/P: 62-year-old female with hypertension, detention resident, vascular dementia, CVA, debility was recently diagnosed with COVID-19 infection at the detention: #Bilateral pneumonia: Secondary to COVID-19 #Acute hypoxic respiratory failure: Secondary to above, Now on room air. #KELSIE: Renally adjust antibiotics #Sacral decubitus ulcer #Acute on chronic encephalopathy, vascular dementia #Malnutrition #Leucopenia: secondary to viral illness Recs: IV/PO Dexamethasone x 10 days Given acute kidney injury, not a candidate for Remdesivir prophylactic anticoagulation based on d-dimer per hospital protocol Completed 5 days of empiric ceftriaxone, continue added 7 days of IV/PO doxycycline trend ferritin, d-dimer, CRP every 2-3 days offloading and wound care for sacral decubitus G. Zelda Gallagher MD [facility] O: [phone] F: [phone] Subjective Date of service: 01/14/22 Interval history: Afebrile, normal white count. Blood cultures remain no growth. Objective - Exam Narrative Exam: Physical Exam: Constitutional: Alert, cooperative. No acute distress Head, Ears, Nose: Normocephalic, atraumatic. External ears, nose normal Eyes: Conjunctivae/corneas clear. No icterus. No ptosis. Neck: Supple, no meningeal signs Oral: dentition fair, no thrush Cardiovascular: S1, S2 normal. Respiratory: Good air entry, clear to auscultation bilaterally GI: Soft, non-tender; bowel sounds normal. No peritoneal signs. + G-tube Musculoskeletal: No pedal edema, no cyanosis. Skin: No rash or abscess Hem/Lymphatic: No palpable cervical or supraclavicular nodes. No lymphangitis Psych: Mood ok. Affect normal Neurological: Awake, alert, oriented. No gross abnormality - Constitutional Vitals: Vital Signs Temp Pulse Resp BP Pulse Ox 97.9 F 76 20 167/84 99 01/14/22 05:57 01/14/22 05:57 01/14/22 05:57 01/14/22 05:57 01/14/22 10:00 Temperature -Last 24 Hours Temperature 97.9 F Temperature 97.9 F - Labs CBC & Chem 7: 01/10/22 06:16 01/14/22 08:18 Labs: Abnormal lab results 01/13/22 01/13/22 01/14/22 Range/Units 16:48 22:22 05:59 Potassium (3.6-5.0) mmol/L Chloride (98-107) mmol/L Carbon Dioxide (22-30) mmol/L BUN (7-17) mg/dL Creatinine (0.6-1.2) mg/dL Glucose (65-100) mg/dL POC Glucose 150 H 140 H 114 H (70-105) mg/dL Calcium (8.4-10.2) mg/dL 01/14/22 01/14/22 Range/Units 08:18 12:10 Potassium 3.4 L (3.6-5.0) mmol/L Chloride 108.8 H (98-107) mmol/L Carbon Dioxide 14 L (22-30) mmol/L BUN 174 H (7-17) mg/dL Creatinine 3.9 H (0.6-1.2) mg/dL Glucose 116 H (65-100) mg/dL POC Glucose 118 H (70-105) mg/dL Calcium 8.0 L (8.4-10.2) mg/dL
--- NOTE | 2022-01-14 17:01 | Operative Report ---
Operative Report Operative Report: EXAM: 1. Ultrasound-guided puncture of the left internal jugular vein 2. Fluoroscopic-guided placement of a left internal jugular nontunneled noncuffed hemodialysis catheter. DATE: 01/14/2022 INDICATION: Acute renal failure requiring hemodialysis. MEDICATIONS: Please see nursing report for full details. DEVICES: 20 cm triple lumen hemodialysis catheter FAMILY ASSESSMENT WORKER: HENRIETTA TRIVEDI MD CONTRAST: None PROCEDURE: The risks, benefits, and alternatives were discussed and informed consent was obtained. The patient was transported to the angiography suite in satisfactory/stable condition and was transported onto the angiography table. The patient's left internal jugular vein was assessed with ultrasound and determined to be patent prior to procedure. The patient was prepped and draped in a sterile fashion. The puncture site was anesthetized. The left internal jugular vein was patent on ultrasound. Under sonographic guidance, the left internal jugular vein was punctured with a 21-gauge micropuncture needle and a 0.018 inch wire was advanced through the needle. Needle was exchanged for transitional dilator. The inner dilator and wire was removed and a 0.035 inch wire was advanced through the transitional dilator into the inferior vena cava. Over the 0.035 inch wire, serial dilatation was performed. The catheter was advanced over the wire and positioned centrally under fluoroscopic guidance. 2-0 Ethilon suture was used to secure the catheter. The catheter was charged w ith heparin 1000 units/mL space. Sterile dressing and Biopatch applied. The patient was transferred from the angiography suite back to the floor in stable condition. FINDINGS: 1. Excellent flow was obtained through the dialysis catheter with 20 mL syringes. 2. The catheter tip is in the right atrium. IMPRESSION: 1. Successful sonographically and fluoroscopically guided placement of a left internal jugular nontunneled noncuffed hemodialysis catheter.
[2022-01-15] MEDS: FREE WATER PO SCH ×8 (00:40→20:49)
[2022-01-15] MEDS: DEXTROSE 5% IN WATER 1,000 ML IV SCH (05:40)
[2022-01-15] MEDS: oxyCODONE /ACETAMINOPHEN 5-325MG TAB PO PRN (06:09)
[2022-01-15 09:07] LABS: Calcium 8.3 mg/dL (8.4-10.2)
[2022-01-15] MEDS ORDERED: SODIUM CHLORIDE 0.9% 100 ML IV PRN (09:08)
[2022-01-15] MEDS: HEPARIN 5,000 UNIT/1 ML VIAL SUB-Q SCH ×2 (10:56→21:08)
[2022-01-15] MEDS: methylPREDNISolone Sod Succinate 40 MG/1 ML INJ IV SCH (10:56)
[2022-01-15] MEDS: CHOLECALCIFEROL (VIT D3) 1000 UNIT (25 mcg) TAB PO SCH (10:56)
[2022-01-15] MEDS: ASCORBIC ACID 500 MG TAB PO SCH ×2 (10:56→21:08)
[2022-01-15] MEDS: carvediloL 3.125 MG TAB PO SCH ×2 (10:56→21:08)
[2022-01-15] MEDS: amLODIPine 10 MG TAB PO SCH (10:56)
[2022-01-15] MEDS: ZINC SULFATE 220 MG CAP PO SCH ×2 (10:57→21:08)
[2022-01-15] MEDS: INSULIN REGULAR, HUMAN 100 UNITS/1 ML SUB-Q SCH ×4 (10:57→17:25)
[2022-01-15] MEDS: DOXYCYCLINE HYCLATE 100 MG in SODIUM CHLORIDE 0.9% 250ML 250 ML IV SCH ×2 (10:59→21:27)
--- NOTE | 2022-01-15 11:56 | Progress Note ---
Assessment and Plan Impression: * Acute kidney injury secondary to COVID related ATN * Azotemia secondary to multifactorial etiologies: KELSIE vs steroids * Hypernatremia * Acute hypoxic respiratory failure secondary to COVID 19 PNA * COVID 19 infection Plan: * Creatinine back to 4.1, BUN >170. Remains acidotic. Start HD today per new start protocol, appreciate vascular for placement of CVC * Dr. Hurley updated patient's daughter/NOK/POA 01/13 Ananya Galvan at [phone], daughter consents to dialysis * Continue IVF for now as patient does appear dry, start with no fluid removal with HD and adjust moving forward * Continue free water w/ tube feeds * Steroids per primary team * Management of COVID 19 per primary team * Avoid potential nephrotoxins * Dose medications for renal function Subjective Date of service: 01/15/22 Interval history: No acute events noted, patient resting in bed. Chart/vitals/labs reviewed in detail Objective - Exam Narrative Exam: General appearance: frail EENT: ATNC, mucous membranes dry Respiratory: Present: Clear to Ascultation Cardiology: regular, S1S2 Gastrointestinal: normal, no tenderness, no distended Neurologic: other (awake, tracks) - Vital Signs Vital signs: Vital Signs - 12hr 01/15/22 04:38 Temperature 97.7 F Pulse Rate 87 Respiratory 20 Rate Blood Pressure 144/85 O2 Sat by Pulse 100 Oximetry - Lab 01/10/22 06:16 01/15/22 07:18 Most recent lab results Calcium 8.3 mg/dL (8.4-10.2) L 01/15/22 07:18 Medications & Allergies - Medications Allergies/Adverse Reactions: Allergies No Known Allergies Allergy (Verified 01/09/22 11:43) Home Medications: Home Medications Medication Instructions Recorded Confirmed Last Taken Type amLODIPine 10 mg PO QDAY #30 tablet 03/09/21 01/09/22 Unknown Rx carvediloL [Coreg] 3.125 mg PO BID #60 tablet 03/09/21 01/09/22 Unknown Rx Active Medications: Generic Name Dose Route Start Last Admin Trade Name Freq PRN Reason Stop Dose Admin Acetaminophen 650 mg 01/09/22 15:00 01/09/22 22:12 Acetaminophen 325 Mg Tab PO 650 mg Q4H PRN Administration Pain MILD(1-3)/Fever >100.5/RILEY Albuterol 2.5 mg 01/09/22 14:25 Albuterol 2.5 Mg/3 Ml Nebu IH Q4HRT PRN Shortness Of Breath Amlodipine Besylate 10 mg 01/12/22 12:00 01/15/22 10:56 Amlodipine 10 Mg Tab PO 10 mg QDAY JARROD Administration Ascorbic Acid 500 mg 01/09/22 22:00 01/15/22 10:56 Ascorbic Acid 500 Mg Tab PO 500 mg BID JARROD Administration Carvedilol 3.125 mg 01/12/22 12:00 01/15/22 10:56 Carvedilol 3.125 Mg Tab PO 3.125 mg BID JARROD Administration Cholecalciferol 1,000 unit 01/10/22 10:00 01/15/22 10:56 Cholecalciferol (Vit D3) 1000 Unit (25 Mcg) Tab PO 1,000 unit DAILY JARROD Administration Dextrose 0 ml 01/09/22 14:48 Dextrose 10% *Hypoglycemia IV PRN PRN Hypoglycemia Heparin Sodium (Porcine) 5,000 unit 01/09/22 22:00 01/15/22 10:56 Heparin 5,000 Unit/1 Ml Vial SUB-Q 5,000 unit Q12HR JARROD Administration Hydralazine HCl 10 mg 01/12/22 11:21 Hydralazine 20 Mg/1 Ml Inj IV Q4HR PRN Hypertension Hydromorphone HCl 0.25 mg 01/09/22 15:00 Hydromorphone 1 Mg/1 Ml Inj IV Q4H PRN Pain, Moderate (4-6) Hydromorphone HCl 0.5 mg 01/09/22 15:00 Hydromorphone 1 Mg/1 Ml Inj IV Q23H PRN Pain , Severe (7-10) Sodium Chloride 2,000 mls @ 130 mls/hr 01/09/22 15:00 01/10/22 05:57 Nacl 0.45% IV 130 mls/hr DIRECT JARROD Administration Doxycycline Hyclate 100 mg/ 250 mls @ 250 mls/hr 01/11/22 14:00 01/15/22 10:59 Sodium Chloride IV 01/17/22 22:59 250 mls/hr Q12HR JARROD Administration Protocol Dextrose 1,000 mls @ 125 mls/hr 01/12/22 15:00 01/15/22 05:40 D5w IV 125 mls/hr DIRECT JARROD Administration Sodium Chloride 100 mls @ 999 mls/hr 01/15/22 09:08 Nacl 0.9% IV MYRNA PRN Hypotension Insulin Human Regular 0 units 01/09/22 16:30 01/15/22 11:32 Insulin Regular, Human 100 Units/1 Ml SUB-Q Not Given ACHS [facility] Protocol Methylprednisolone Sodium Succinate 40 mg 01/12/22 10:00 01/15/22 10:56 Methylprednisolone Sod Succinate 40 Mg/1 Ml Inj IV 40 mg QDAY JARROD Administration Ondansetron HCl 4 mg 01/09/22 16:00 Ondansetron 4 Mg/2 Ml Inj IV Q8H PRN Nausea And Vomiting Oxycodone/Acetaminophen 1 tab 01/09/22 15:00 01/15/22 06:09 Oxycodone /Acetaminophen 5-325mg Tab PO 1 tab Q16H PRN Administration Pain, Moderate (4-6) Sodium Chloride 10 ml 01/09/22 22:00 01/15/22 10:56 Sodium Chloride 0.9% 10 Ml Flush Syringe IV 10 ml BID JARROD Administration Sodium Chloride 10 ml 01/09/22 15:00 Sodium Chloride 0.9% 10 Ml Flush Syringe IV PRN PRN LINE FLUSH Zinc Sulfate 220 mg 01/09/22 22:00 01/15/22 10:57 Zinc Sulfate 220 Mg Cap PO 220 mg BID JARROD Administration
--- NOTE | 2022-01-15 12:23 | Progress Note ---
Assessment and Plan Assessment and plan: #Sepsis -improving #COVID-19 infection #Pneumonia -Blood cultures NGTD so far; UCx negative -continue doxycycline and rocephin -continue steroids; vitamins for COVID infection not a candidate for remdesivir due to kidney function -ID following, assistance appreciated #Acute respiratory failure with hypoxia-improving -likely secondary to COVID PNA as opposed to bacterial pneumonia -Currently on 5 L nasal cannula. Continue to wean as tolerated. -continuous pulse ox -continue steroids day 6 #Acute metabolic encephalopathy-resolved #hx of Vascular dementia #Cerebral atherosclerosis -multifactorial; acute change likely secondary to infection -will continue to monitor #Acute kidney injury-worsening -SCr 4.1 today -Renal US showed medical renal disease -avoid nephrotoxins and will renally dose medications -Nephrology following, assistance appreciated -Initiating hemodialysis today. Triple-lumen HD catheter placed and left IJ on 01/14/2022. #Metabolic acidosis -secondary to renal failure #Dysphagia -Currently with PEG tube -continue tube feeds -Nutrition consult #Severe protein-calorie malnutrition -albumin 2.0 -continue TF, Nutrition managing #Sacral decubitus ulcer -Continue wound care #Discharge planning #Advance care planning -Patient to return to [facility] once medically stable #Advanced care planning -Disease education conducted, care plan discussed, diagnoses discussed, prognosis discussed, and patient acknowledges understanding with care plan -Time: +30 min Disposition Plan: Continue medical management Total Time Spent with Patient (Minutes): 45 minutes History Interval history: Patient tolerated insertion of a triple-lumen HD catheter in her left IJ without any complications. Hospitalist Physical - Constitutional Vitals: Temp Pulse Resp BP Pulse Ox 97.7 F 87 20 144/85 100 01/15/22 04:38 01/15/22 04:38 01/15/22 04:38 01/15/22 04:38 01/15/22 04:38 General appearance: Present: mild distress, cachectic - EENT Eyes: Present: PERRL, EOM intact ENT: hearing intact, clear oral mucosa - Neck Neck: Present: supple, normal ROM - Respiratory Respiratory effort: normal Respiratory: bilateral: diminished - Cardiovascular Rhythm: regular Heart Sounds: Present: S1 & S2 - Extremities Extremities: no ischemia, pulses intact, pulses symmetrical, No edema, normal temperature, normal color Peripheral Pulses: within normal limits - Abdominal General gastrointestinal: soft, non-tender, non-distended, normal bowel sounds, other (PEG tube in place) - Integumentary Integumentary: Present: clear, warm, dry - Psychiatric Psychiatric: other (Not fully responsive. Patient is somnolent in bed) - Neurologic Neurologic: CNII-XII intact - Allied Health Allied health notes reviewed: nursing HEART Score - HEART Score Troponin: Troponin T 0.064 ng/mL (0.00-0.029) H 01/12/22 02:03 Results - Labs CBC & Chem 7: 01/10/22 06:16 01/15/22 07:18 Labs: Laboratory Last Values WBC 6.3 K/mm3 (4.5-11.0) 01/10/22 06:16 RBC 2.92 M/mm3 (3.65-5.03) L 01/10/22 06:16 Hgb 7.9 gm/dl (10.1-14.3) L 01/10/22 06:16 Hct 25.9 % (30.3-42.9) L 01/10/22 06:16 MCV 89 fl (79-97) 01/10/22 06:16 MCH 27 pg (28-32) L 01/10/22 06:16 MCHC 31 % (30-34) 01/10/22 06:16 RDW 16.8 % (13.2-15.2) H 01/10/22 06:16 Plt Count 162 K/mm3 (140-440) 01/10/22 06:16 Lymph % (Auto) Disbursing Agent 01/10/22 06:16 Casey % (Auto) Disbursing Agent 01/10/22 06:16 Eos % (Auto) Disbursing Agent 01/10/22 06:16 Baso % (Auto) Disbursing Agent 01/10/22 06:16 Lymph # (Auto) Disbursing Agent 01/10/22 06:16 Casey # (Auto) Disbursing Agent 01/10/22 06:16 Eos # (Auto) Disbursing Agent 01/10/22 06:16 Baso # (Auto) Disbursing Agent 01/10/22 06:16 Add Manual Diff Complete 01/10/22 06:16 Total Counted 100 01/10/22 06:16 Seg Neutrophils % Disbursing Agent 01/10/22 06:16 Seg Neuts % (Manual) 59.0 % (40.0-70.0) 01/10/22 06:16 Band Neutrophils % 13.0 % 01/10/22 06:16 Lymphocytes % (Manual) 8.0 % (13.4-35.0) L 01/10/22 06:16 Reactive Lymphs % (Man) 0 % 01/10/22 06:16 Monocytes % (Manual) 0 % (0.0-7.3) 01/10/22 06:16 Eosinophils % (Manual) 0 % (0.0-4.3) 01/10/22 06:16 Basophils % (Manual) 0 % (0.0-1.8) 01/10/22 06:16 Metamyelocytes % 8.0 % 01/10/22 06:16 Myelocytes % 12.0 % 01/10/22 06:16 Promyelocytes % 0 % 01/10/22 06:16 Blast Cells % 0 % 01/10/22 06:16 Nucleated RBC % Not Reportable 01/10/22 06:16 Seg Neutrophils # Disbursing Agent 01/10/22 06:16 Seg Neutrophils # Man 3.7 K/mm3 (1.8-7.7) 01/10/22 06:16 Band Neutrophils # 0.8 K/mm3 01/10/22 06:16 Lymphocytes # (Manual) 0.5 K/mm3 (1.2-5.4) L 01/10/22 06:16 Abs React Lymphs (Man) 0.0 K/mm3 01/10/22 06:16 Monocytes # (Manual) 0.0 K/mm3 (0.0-0.8) 01/10/22 06:16 Eosinophils # (Manual) 0.0 K/mm3 (0.0-0.4) 01/10/22 06:16 Basophils # (Manual) 0.0 K/mm3 (0.0-0.1) 01/10/22 06:16 Metamyelocytes # 0.5 K/mm3 01/10/22 06:16 Myelocytes # 0.8 K/mm3 01/10/22 06:16 Promyelocytes # 0.0 K/mm3 01/10/22 06:16 Blast Cells # 0.0 K/mm3 01/10/22 06:16 WBC Morphology Not Reportable 01/10/22 06:16 Hypersegmented Neuts Not Reportable 01/10/22 06:16 Hyposegmented Neuts Not Reportable 01/10/22 06:16 Hypogranular Neuts Not Reportable 01/10/22 06:16 Smudge Cells Not Reportable 01/10/22 06:16 Toxic Granulation Not Reportable 01/10/22 06:16 Toxic Vacuolation Not Reportable 01/10/22 06:16 Dohle Bodies Not Reportable 01/10/22 06:16 Pelger-Huet Anomaly Not Reportable 01/10/22 06:16 Lesley Rods Not Reportable 01/10/22 06:16 Platelet Estimate Consistent w auto 01/10/22 06:16 Clumped Platelets Not Reportable 01/10/22 06:16 Plt Clumps, EDTA Not Reportable 01/10/22 06:16 Large Platelets Not Reportable 01/10/22 06:16 Giant Platelets Not Reportable 01/10/22 06:16 Platelet Satelliting Not Reportable 01/10/22 06:16 Plt Morphology Comment Not Reportable 01/10/22 06:16 RBC Morphology Not Reportable 01/10/22 06:16 Dimorphic RBCs Not Reportable 01/10/22 06:16 Polychromasia Few 01/10/22 06:16 Hypochromasia Not Reportable 01/10/22 06:16 Poikilocytosis Not Reportable 01/10/22 06:16 Anisocytosis Not Reportable 01/10/22 06:16 Microcytosis Not Reportable 01/10/22 06:16 Macrocytosis Not Reportable 01/10/22 06:16 Spherocytes Not Reportable 01/10/22 06:16 Pappenheimer Bodies Not Reportable 01/10/22 06:16 Sickle Cells Not Reportable 01/10/22 06:16 Target Cells Not Reportable 01/10/22 06:16 Tear Drop Cells Not Reportable 01/10/22 06:16 Ovalocytes Not Reportable 01/10/22 06:16 Helmet Cells Not Reportable 01/10/22 06:16 [place] Bodies Not Reportable 01/10/22 06:16 Bryant Rings Not Reportable 01/10/22 06:16 Hussein Cells Not Reportable 01/10/22 06:16 Bite Cells Not Reportable 01/10/22 06:16 Crenated Cell Not Reportable 01/10/22 06:16 Elliptocytes Not Reportable 01/10/22 06:16 Acanthocytes (Spur) Not Reportable 01/10/22 06:16 Rouleaux Not Reportable 01/10/22 06:16 Hemoglobin C Crystals Not Reportable 01/10/22 06:16 Schistocytes Not Reportable 01/10/22 06:16 Malaria parasites Not Reportable 01/10/22 06:16 Artemio Bodies Not Reportable 01/10/22 06:16 Hem Pathologist Commnt No 01/10/22 06:16 APTT 29.2 Sec. (24.2-36.6) 01/09/22 12:50 D-Dimer 4886.79 ng/mlDDU (0-234) H 01/11/22 07:58 Sodium 149 mmol/L (137-145) H 01/15/22 07:18 Potassium 3.5 mmol/L (3.6-5.0) L 01/15/22 07:18 Chloride 111.6 mmol/L (98-107) H 01/15/22 07:18 Carbon Dioxide 14 mmol/L (22-30) L 01/15/22 07:18 Anion Gap 27 mmol/L 01/15/22 07:18 BUN 174 mg/dL (7-17) H 01/15/22 07:18 Creatinine 4.1 mg/dL (0.6-1.2) H 01/15/22 07:18 Estimated GFR 13 ml/min 01/15/22 07:18 BUN/Creatinine Ratio 42 % 01/15/22 07:18 Glucose 167 mg/dL (65-100) H 01/15/22 07:18 POC Glucose 146 mg/dL (70-105) H 01/15/22 11:25 Lactic Acid 1.40 mmol/L (0.7-2.0) 01/09/22 12:50 Calcium 8.3 mg/dL (8.4-10.2) L 01/15/22 07:18 Ferritin 2182.0 ng/mL (10.0-200.0) H 01/11/22 07:58 Total Bilirubin 0.20 mg/dL (0.1-1.2) 01/09/22 12:50 Direct Bilirubin < 0.2 mg/dL (0-0.2) 01/09/22 12:50 Indirect Bilirubin 0.0 mg/dL 01/09/22 12:50 AST 75 units/L (5-40) H 01/09/22 12:50 ALT 31 units/L (7-56) 01/09/22 12:50 Alkaline Phosphatase 69 units/L (35-129) 01/09/22 12:50 Lactate Dehydrogenase 332 units/L (91-180) H 01/11/22 07:58 Troponin T 0.064 ng/mL (0.00-0.029) H 01/12/22 02:03 C-Reactive Protein 30.40 mg/dL (0.00-1.30) H 01/11/22 07:58 NT-Pro-B Natriuret Pep 608.7 pg/mL (0-900) 01/09/22 12:50 Total Protein 7.9 g/dL (6.3-8.2) 01/09/22 12:50 Albumin 2.0 g/dL (3.9-5) L 01/09/22 12:50 Albumin/Globulin Ratio 0.3 % 01/09/22 12:50 Triglycerides 442 mg/dL (2-149) H 01/12/22 02:03 Cholesterol 132 mg/dL (50-199) 01/12/22 02:03 LDL Cholesterol Direct TNR 01/12/22 02:03 HDL Cholesterol 14 mg/dL (40-59) L 01/12/22 02:03 Cholesterol/HDL Ratio 9.42 % 01/12/22 02:03 Procalcitonin > 200.00 ng/mL (<0.15) 01/11/22 07:58 Urine Color Yellow (Yellow) 01/09/22 13:52 Urine Turbidity Hazy (Clear) 01/09/22 13:52 Urine pH 6.0 (5.0-7.0) 01/09/22 13:52 Ur Specific [place] 1.020 (1.003-1.030) 01/09/22 13:52 Urine Protein 100 mg/dl mg/dL (Negative) 01/09/22 13:52 Urine Glucose (UA) Neg mg/dL (Negative) 01/09/22 13:52 Urine Ketones Neg mg/dL (Negative) 01/09/22 13:52 Urine Blood Neg (Negative) 01/09/22 13:52 Urine Nitrite Neg (Negative) 01/09/22 13:52 Urine Bilirubin Neg (Negative) 01/09/22 13:52 Urine Urobilinogen < 2.0 mg/dL (<2.0) 01/09/22 13:52 Ur Leukocyte Esterase Neg (Negative) 01/09/22 13:52 Urine WBC (Auto) 4.0 /HPF (0.0-6.0) 01/09/22 13:52 Urine RBC (Auto) 3.0 /HPF (0.0-6.0) 01/09/22 13:52 U Epithel Cells (Auto) 2.0 /HPF (0-13.0) 01/09/22 13:52 Urine Bacteria (Auto) 1+ /HPF (Negative) 01/09/22 13:52 Urine Mucus Few /HPF 01/09/22 13:52 Coronavirus (PCR) Positive (Negative) A 01/10/22 Unknown Hepatitis A IgM Ab Non-reactive (NonReactive) 01/14/22 Unknown Hep Bs Antigen Non-reactive (Negative) 01/14/22 Unknown Hep B Core IgM Ab Non-reactive (NonReactive) 01/14/22 Unknown Hepatitis C Antibody Non-reactive (NonReactive) 01/14/22 Unknown Blood Type B POSITIVE 01/09/22 14:37 Antibody Screen Negative 01/09/22 14:37 Microbiology: Microbiology 01/09/22 12:50 Peripheral/Venous Blood Culture - Final NO GROWTH AFTER 5 DAYS 01/09/22 12:50 Peripheral/Venous Blood Culture - Final NO GROWTH AFTER 5 DAYS Samuel/IV: Voiding Method Incontinent Active Medications - Current Medications Current Medications: Generic Name Dose Route Start Last Admin Trade Name Freq PRN Reason Stop Dose Admin Acetaminophen 650 mg 01/09/22 15:00 01/09/22 22:12 Acetaminophen 325 Mg Tab PO 650 mg Q4H PRN Administration Pain MILD(1-3)/Fever >100.5/RILEY Albuterol 2.5 mg 01/09/22 14:25 Albuterol 2.5 Mg/3 Ml Nebu IH Q4HRT PRN Shortness Of Breath Amlodipine Besylate 10 mg 01/12/22 12:00 01/15/22 10:56 Amlodipine 10 Mg Tab PO 10 mg QDAY JARROD Administration Ascorbic Acid 500 mg 01/09/22 22:00 01/15/22 10:56 Ascorbic Acid 500 Mg Tab PO 500 mg BID JARROD Administration Carvedilol 3.125 mg 01/12/22 12:00 01/15/22 10:56 Carvedilol 3.125 Mg Tab PO 3.125 mg BID JARROD Administration Cholecalciferol 1,000 unit 01/10/22 10:00 01/15/22 10:56 Cholecalciferol (Vit D3) 1000 Unit (25 Mcg) Tab PO 1,000 unit DAILY JARROD Administration Dextrose 0 ml 01/09/22 14:48 Dextrose 10% *Hypoglycemia IV PRN PRN Hypoglycemia Heparin Sodium (Porcine) 5,000 unit 01/09/22 22:00 01/15/22 10:56 Heparin 5,000 Unit/1 Ml Vial SUB-Q 5,000 unit Q12HR JARROD Administration Hydralazine HCl 10 mg 01/12/22 11:21 Hydralazine 20 Mg/1 Ml Inj IV Q4HR PRN Hypertension Hydromorphone HCl 0.25 mg 01/09/22 15:00 Hydromorphone 1 Mg/1 Ml Inj IV Q4H PRN Pain, Moderate (4-6) Hydromorphone HCl 0.5 mg 01/09/22 15:00 Hydromorphone 1 Mg/1 Ml Inj IV Q23H PRN Pain , Severe (7-10) Sodium Chloride 2,000 mls @ 130 mls/hr 01/09/22 15:00 01/10/22 05:57 Nacl 0.45% IV 130 mls/hr DIRECT JARROD Administration Doxycycline Hyclate 100 mg/ 250 mls @ 250 mls/hr 01/11/22 14:00 01/15/22 10:59 Sodium Chloride IV 01/17/22 22:59 250 mls/hr Q12HR JRAROD Administration Protocol Dextrose 1,000 mls @ 125 mls/hr 01/12/22 15:00 01/15/22 05:40 D5w IV 125 mls/hr DIRECT JARROD Administration Sodium Chloride 100 mls @ 999 mls/hr 01/15/22 09:08 Nacl 0.9% IV MYRNA PRN Hypotension Insulin Human Regular 0 units 01/09/22 16:30 01/15/22 11:32 Insulin Regular, Human 100 Units/1 Ml SUB-Q Not Given ACHS JARROD Protocol Methylprednisolone Sodium Succinate 40 mg 01/12/22 10:00 01/15/22 10:56 Methylprednisolone Sod Succinate 40 Mg/1 Ml Inj IV 40 mg QDAY JARROD Administration Ondansetron HCl 4 mg 01/09/22 16:00 Ondansetron 4 Mg/2 Ml Inj IV Q8H PRN Nausea And Vomiting Oxycodone/Acetaminophen 1 tab 01/09/22 15:00 01/15/22 06:09 Oxycodone /Acetaminophen 5-325mg Tab PO 1 tab Q16H PRN Administration Pain, Moderate (4-6) Sodium Chloride 10 ml 01/09/22 22:00 01/15/22 10:56 Sodium Chloride 0.9% 10 Ml Flush Syringe IV 10 ml BID JARROD Administration Sodium Chloride 10 ml 01/09/22 15:00 Sodium Chloride 0.9% 10 Ml Flush Syringe IV PRN PRN LINE FLUSH Zinc Sulfate 220 mg 01/09/22 22:00 01/15/22 10:57 Zinc Sulfate 220 Mg Cap PO 220 mg BID JARROD Administration Nutrition/Malnutrition Assess - Dietary Evaluation Nutrition/Malnutrition Findings: Nutrition Notes Start: 01/10/22 13:52 Freq: Status: Active Protocol: Document 01/14/22 11:29 [facility] (Rec: 01/14/22 11:35 [facility] [id number]) Nutrition Notes Initial or Follow up Reassessment Current Diagnosis Acute Kidney Injury, Respiratory Failure Other Pertinent Diagnosis Vascular dementia, COVID-19 (+ ) Current Diet NPO Labs/Tests K 3.4 BUN 174 Cr 3.9 Na 143 Pertinent Medications D5W at 125ml/hr Height 5 ft 4 in Weight 48 kg Christine Body Weight (kg) 54.54 BMI 18.1 Weight Status Underweight Subjective/Other Information Per RN report last pm, pt tolerating Nepro at goal rate with no gastric residuals. Pt NPO for VasCath placement today. Per nephrology, renal function declining and pt will need HD. Burn Absent Trauma Absent Minimum of two criteria Yes #1 Nutrition Diagnosis Underweight Diagnosis Progress(for reassessment Continues documentation) Is patient on ventilator? No Is Patient Ambulatory and/or Out of Bed No REE-([place]-confined to bed) 1223.568 Kcal/Kg value to use for calculation 35 Approximate Energy Requirements Using 1680 kcal/Kg Calculation Used for Recommendations Kcal/kg Additional Notes Pro needs >1.2g/kg: >58g/day Fluid needs 1-1.5L/day Nutrition Intervention Nutrition Support: Resume TF when medically feasible (Nepro at 30ml/hr with 130ml water flush q4h). Goal #1 Restart TF to meet nutrient needs Follow-Up By: 01/15/22 Additional Comments F/U: TF restart, initiation of HD, put TF order back in [facility]
[2022-01-16] MEDS: INSULIN REGULAR, HUMAN 100 UNITS/1 ML SUB-Q SCH ×4 (00:25→20:00)
[2022-01-16] MEDS: FREE WATER PO SCH ×6 (00:26→21:57)
[2022-01-16] MEDS: DEXTROSE 5% IN WATER 1,000 ML IV SCH (04:43)
[2022-01-16 08:19] LABS: Calcium 8.6 mg/dL (8.4-10.2)
[2022-01-16] MEDS: oxyCODONE /ACETAMINOPHEN 5-325MG TAB PO PRN (08:55)
[2022-01-16] MEDS: CHOLECALCIFEROL (VIT D3) 1000 UNIT (25 mcg) TAB PO SCH (09:02)
[2022-01-16] MEDS: carvediloL 3.125 MG TAB PO SCH ×2 (09:02→21:58)
[2022-01-16] MEDS: amLODIPine 10 MG TAB PO SCH (09:02)
[2022-01-16] MEDS: HEPARIN 5,000 UNIT/1 ML VIAL SUB-Q SCH ×2 (09:03→21:58)
[2022-01-16] MEDS: ASCORBIC ACID 500 MG TAB PO SCH ×2 (09:03→22:01)
[2022-01-16] MEDS: DOXYCYCLINE HYCLATE 100 MG in SODIUM CHLORIDE 0.9% 250ML 250 ML IV SCH ×2 (09:04→22:00)
[2022-01-16] MEDS: methylPREDNISolone Sod Succinate 40 MG/1 ML INJ IV SCH (09:04)
[2022-01-16] MEDS: ZINC SULFATE 220 MG CAP PO SCH ×2 (09:45→21:58)
[2022-01-16] MEDS: POTASSIUM CHLORIDE 10 MEQ 10 MEQ/100 ML BAG IV SCH ×4 (12:45→14:34)
--- NOTE | 2022-01-16 14:09 | Progress Note ---
Assessment and Plan Assessment and plan: #Sepsis -resolved #COVID-19 infection #COVID-19 pneumonia -Blood cultures NGTD x5 daysfinal; UCx negative -continue doxycycline and rocephin -continue steroids; vitamins for COVID infection not a candidate for remdesivir due to kidney function -ID following, assistance appreciated #Acute respiratory failure with hypoxia-improving -likely secondary to COVID PNA as opposed to bacterial pneumonia -Currently on 4 L nasal cannula. Continue to wean as tolerated. -continuous pulse ox -continue steroids day 7of 10 #Acute metabolic encephalopathy-resolved #hx of Vascular dementia #Cerebral atherosclerosis -multifactorial; acute change likely secondary to infection -will continue to monitor #Newly declared ESRD -SCr 2.6 today -Renal US showed medical renal disease -avoid nephrotoxins and will renally dose medications -Nephrology following, assistance appreciated -Initiating hemodialysis on 01/15/2022. Triple-lumen HD catheter placed and left IJ on 01/14/2022. -Pending HD chair at [facility] #Metabolic acidosis-resolved -secondary to renal failure #Dysphagia -Currently with PEG tube -continue tube feeds -Nutrition consult #Severe protein-calorie malnutrition -albumin 2.0 -continue TF, Nutrition managing #Sacral decubitus ulcer -Continue wound care #Discharge planning - Patient is pending HD chair - Case management has been made aware. - Discharge is tentatively 24 to 48 hours. Patient to return to [facility] once medically stable #Advanced care planning -Disease education conducted, care plan discussed, diagnoses discussed, prognosis discussed, and patient acknowledges understanding with care plan -Time: +30 min Disposition Plan: Continue medical management Total Time Spent with Patient (Minutes): 45 min History Interval history: Patient tolerated insertion of a triple-lumen HD catheter in her left IJ without any complications. Hospitalist Physical - Constitutional Vitals: Temp Pulse Resp BP Pulse Ox 97.7 F 59 L 16 154/74 96 01/16/22 04:59 01/16/22 04:59 01/16/22 04:59 01/16/22 04:59 01/16/22 12:00 General appearance: Present: mild distress, cachectic - EENT Eyes: Present: PERRL, EOM intact ENT: hearing intact, clear oral mucosa, poor dentition - Neck Neck: Present: supple, normal ROM - Respiratory Respiratory effort: normal Respiratory: bilateral: diminished (on 4L nasal cannula) - Cardiovascular Rhythm: regular Heart Sounds: Present: S1 & S2 - Extremities Extremities: no ischemia, pulses intact, pulses symmetrical, normal temperature, normal color Peripheral Pulses: within normal limits - Abdominal General gastrointestinal: soft, non-tender, non-distended, normal bowel sounds, other (PEG tube in place) - Integumentary Integumentary: Present: clear, warm, dry - Psychiatric Psychiatric: other (very quiet and slow to respond) - Allied Health Allied health notes reviewed: nursing HEART Score - HEART Score Troponin: Troponin T 0.064 ng/mL (0.00-0.029) H 01/12/22 02:03 Results - Labs CBC & Chem 7: 01/10/22 06:16 01/16/22 06:50 Labs: Laboratory Last Values WBC 6.3 K/mm3 (4.5-11.0) 01/10/22 06:16 RBC 2.92 M/mm3 (3.65-5.03) L 01/10/22 06:16 Hgb 7.9 gm/dl (10.1-14.3) L 01/10/22 06:16 Hct 25.9 % (30.3-42.9) L 01/10/22 06:16 MCV 89 fl (79-97) 01/10/22 06:16 MCH 27 pg (28-32) L 01/10/22 06:16 MCHC 31 % (30-34) 01/10/22 06:16 RDW 16.8 % (13.2-15.2) H 01/10/22 06:16 Plt Count 162 K/mm3 (140-440) 01/10/22 06:16 Lymph % (Auto) [employer] 01/10/22 06:16 [place] % (Auto) [employer] 01/10/22 06:16 Eos % (Auto) [employer] 01/10/22 06:16 Baso % (Auto) [employer] 01/10/22 06:16 Lymph # (Auto) [employer] 01/10/22 06:16 [place] # (Auto) [employer] 01/10/22 06:16 Eos # (Auto) [employer] 01/10/22 06:16 Baso # (Auto) [employer] 01/10/22 06:16 Add Manual Diff Complete 01/10/22 06:16 Total Counted 100 01/10/22 06:16 Seg Neutrophils % [employer] 01/10/22 06:16 Seg Neuts % (Manual) 59.0 % (40.0-70.0) 01/10/22 06:16 Band Neutrophils % 13.0 % 01/10/22 06:16 Lymphocytes % (Manual) 8.0 % (13.4-35.0) L 01/10/22 06:16 Reactive Lymphs % (Man) 0 % 01/10/22 06:16 Monocytes % (Manual) 0 % (0.0-7.3) 01/10/22 06:16 Eosinophils % (Manual) 0 % (0.0-4.3) 01/10/22 06:16 Basophils % (Manual) 0 % (0.0-1.8) 01/10/22 06:16 Metamyelocytes % 8.0 % 01/10/22 06:16 Myelocytes % 12.0 % 01/10/22 06:16 Promyelocytes % 0 % 01/10/22 06:16 Blast Cells % 0 % 01/10/22 06:16 Nucleated RBC % Not Reportable 01/10/22 06:16 Seg Neutrophils # [employer] 01/10/22 06:16 Seg Neutrophils # Man 3.7 K/mm3 (1.8-7.7) 01/10/22 06:16 Band Neutrophils # 0.8 K/mm3 01/10/22 06:16 Lymphocytes # (Manual) 0.5 K/mm3 (1.2-5.4) L 01/10/22 06:16 Abs React Lymphs (Man) 0.0 K/mm3 01/10/22 06:16 Monocytes # (Manual) 0.0 K/mm3 (0.0-0.8) 01/10/22 06:16 Eosinophils # (Manual) 0.0 K/mm3 (0.0-0.4) 01/10/22 06:16 Basophils # (Manual) 0.0 K/mm3 (0.0-0.1) 01/10/22 06:16 Metamyelocytes # 0.5 K/mm3 01/10/22 06:16 Myelocytes # 0.8 K/mm3 01/10/22 06:16 Promyelocytes # 0.0 K/mm3 01/10/22 06:16 Blast Cells # 0.0 K/mm3 01/10/22 06:16 WBC Morphology Not Reportable 01/10/22 06:16 Hypersegmented Neuts Not Reportable 01/10/22 06:16 Hyposegmented Neuts Not Reportable 01/10/22 06:16 Hypogranular Neuts Not Reportable 01/10/22 06:16 Smudge Cells Not Reportable 01/10/22 06:16 Toxic Granulation Not Reportable 01/10/22 06:16 Toxic Vacuolation Not Reportable 01/10/22 06:16 Dohle Bodies Not Reportable 01/10/22 06:16 Pelger-Huet Anomaly Not Reportable 01/10/22 06:16 Lesley Rods Not Reportable 01/10/22 06:16 Platelet Estimate Consistent w auto 01/10/22 06:16 Clumped Platelets Not Reportable 01/10/22 06:16 Plt Clumps, EDTA Not Reportable 01/10/22 06:16 Large Platelets Not Reportable 01/10/22 06:16 Giant Platelets Not Reportable 01/10/22 06:16 Platelet Satelliting Not Reportable 01/10/22 06:16 Plt Morphology Comment Not Reportable 01/10/22 06:16 RBC Morphology Not Reportable 01/10/22 06:16 Dimorphic RBCs Not Reportable 01/10/22 06:16 Polychromasia Few 01/10/22 06:16 Hypochromasia Not Reportable 01/10/22 06:16 Poikilocytosis Not Reportable 01/10/22 06:16 Anisocytosis Not Reportable 01/10/22 06:16 Microcytosis Not Reportable 01/10/22 06:16 Macrocytosis Not Reportable 01/10/22 06:16 Spherocytes Not Reportable 01/10/22 06:16 Pappenheimer Bodies Not Reportable 01/10/22 06:16 Sickle Cells Not Reportable 01/10/22 06:16 Target Cells Not Reportable 01/10/22 06:16 Tear Drop Cells Not Reportable 01/10/22 06:16 Ovalocytes Not Reportable 01/10/22 06:16 Helmet Cells Not Reportable 01/10/22 06:16 Hammonds-Moraida Bodies Not Reportable 01/10/22 06:16 Winder Rings Not Reportable 01/10/22 06:16 Hussein Cells Not Reportable 01/10/22 06:16 Bite Cells Not Reportable 01/10/22 06:16 Crenated Cell Not Reportable 01/10/22 06:16 Elliptocytes Not Reportable 01/10/22 06:16 Acanthocytes (Spur) Not Reportable 01/10/22 06:16 Rouleaux Not Reportable 01/10/22 06:16 Hemoglobin C Crystals Not Reportable 01/10/22 06:16 Schistocytes Not Reportable 01/10/22 06:16 Malaria parasites Not Reportable 01/10/22 06:16 Artemio Bodies Not Reportable 01/10/22 06:16 Hem Pathologist Commnt No 01/10/22 06:16 APTT 29.2 Sec. (24.2-36.6) 01/09/22 12:50 D-Dimer 4886.79 ng/mlDDU (0-234) H 01/11/22 07:58 Sodium 138 mmol/L (137-145) D 01/16/22 06:50 Potassium 3.4 mmol/L (3.6-5.0) L 01/16/22 06:50 Chloride 103.5 mmol/L (98-107) 01/16/22 06:50 Carbon Dioxide 21 mmol/L (22-30) L D 01/16/22 06:50 Anion Gap 17 mmol/L 01/16/22 06:50 BUN 85 mg/dL (7-17) H 01/16/22 06:50 Creatinine 2.6 mg/dL (0.6-1.2) H 01/16/22 06:50 Estimated GFR 22 ml/min 01/16/22 06:50 BUN/Creatinine Ratio 33 % 01/16/22 06:50 Glucose 138 mg/dL (65-100) H 01/16/22 06:50 POC Glucose 140 mg/dL (70-105) H 01/16/22 11:39 Lactic Acid 1.40 mmol/L (0.7-2.0) 01/09/22 12:50 Calcium 8.6 mg/dL (8.4-10.2) 01/16/22 06:50 Phosphorus 4.90 mg/dL (2.5-4.5) H 01/16/22 06:50 Magnesium 1.60 mg/dL (1.7-2.3) L 01/16/22 06:50 Ferritin 2182.0 ng/mL (10.0-200.0) H 01/11/22 07:58 Total Bilirubin 0.20 mg/dL (0.1-1.2) 01/09/22 12:50 Direct Bilirubin < 0.2 mg/dL (0-0.2) 01/09/22 12:50 Indirect Bilirubin 0.0 mg/dL 01/09/22 12:50 AST 75 units/L (5-40) H 01/09/22 12:50 ALT 31 units/L (7-56) 01/09/22 12:50 Alkaline Phosphatase 69 units/L (35-129) 01/09/22 12:50 Lactate Dehydrogenase 332 units/L (91-180) H 01/11/22 07:58 Troponin T 0.064 ng/mL (0.00-0.029) H 01/12/22 02:03 C-Reactive Protein 30.40 mg/dL (0.00-1.30) H 01/11/22 07:58 NT-Pro-B Natriuret Pep 608.7 pg/mL (0-900) 01/09/22 12:50 Total Protein 7.9 g/dL (6.3-8.2) 01/09/22 12:50 Albumin 2.0 g/dL (3.9-5) L 01/09/22 12:50 Albumin/Globulin Ratio 0.3 % 01/09/22 12:50 Triglycerides 442 mg/dL (2-149) H 01/12/22 02:03 Cholesterol 132 mg/dL (50-199) 01/12/22 02:03 LDL Cholesterol Direct TNR 01/12/22 02:03 HDL Cholesterol 14 mg/dL (40-59) L 01/12/22 02:03 Cholesterol/HDL Ratio 9.42 % 01/12/22 02:03 Procalcitonin > 200.00 ng/mL (<0.15) 01/11/22 07:58 Urine Color Yellow (Yellow) 01/09/22 13:52 Urine Turbidity Hazy (Clear) 01/09/22 13:52 Urine pH 6.0 (5.0-7.0) 01/09/22 13:52 Ur Specific [place] 1.020 (1.003-1.030) 01/09/22 13:52 Urine Protein 100 mg/dl mg/dL (Negative) 01/09/22 13:52 Urine Glucose (UA) Neg mg/dL (Negative) 01/09/22 13:52 Urine Ketones Neg mg/dL (Negative) 01/09/22 13:52 Urine Blood Neg (Negative) 01/09/22 13:52 Urine Nitrite Neg (Negative) 01/09/22 13:52 Urine Bilirubin Neg (Negative) 01/09/22 13:52 Urine Urobilinogen < 2.0 mg/dL (<2.0) 01/09/22 13:52 Ur Leukocyte Esterase Neg (Negative) 01/09/22 13:52 Urine WBC (Auto) 4.0 /HPF (0.0-6.0) 01/09/22 13:52 Urine RBC (Auto) 3.0 /HPF (0.0-6.0) 01/09/22 13:52 U Epithel Cells (Auto) 2.0 /HPF (0-13.0) 01/09/22 13:52 Urine Bacteria (Auto) 1+ /HPF (Negative) 01/09/22 13:52 Urine Mucus Few /HPF 01/09/22 13:52 Coronavirus (PCR) Positive (Negative) A 01/10/22 Unknown Hepatitis A IgM Ab Non-reactive (NonReactive) 01/14/22 Unknown Hep Bs Antigen Non-reactive (Negative) 01/14/22 Unknown Hep B Core IgM Ab Non-reactive (NonReactive) 01/14/22 Unknown Hepatitis C Antibody Non-reactive (NonReactive) 01/14/22 Unknown Blood Type B POSITIVE 01/09/22 14:37 Antibody Screen Negative 01/09/22 14:37 Samuel/IV: Voiding Method Incontinent Active Medications - Current Medications Current Medications: Generic Name Dose Route Start Last Admin Trade Name Freq PRN Reason Stop Dose Admin Acetaminophen 650 mg 01/09/22 15:00 01/09/22 22:12 Acetaminophen 325 Mg Tab PO 650 mg Q4H PRN Administration Pain MILD(1-3)/Fever >100.5/RILEY Albuterol 2.5 mg 01/09/22 14:25 Albuterol 2.5 Mg/3 Ml Nebu IH Q4HRT PRN Shortness Of Breath Amlodipine Besylate 10 mg 01/12/22 12:00 01/16/22 09:02 Amlodipine 10 Mg Tab PO 10 mg QDAY JARROD Administration Ascorbic Acid 500 mg 01/09/22 22:00 01/16/22 09:03 Ascorbic Acid 500 Mg Tab PO 500 mg BID JARROD Administration Carvedilol 3.125 mg 01/12/22 12:00 01/16/22 09:02 Carvedilol 3.125 Mg Tab PO 3.125 mg BID JARROD Administration Cholecalciferol 1,000 unit 01/10/22 10:00 01/16/22 09:02 Cholecalciferol (Vit D3) 1000 Unit (25 Mcg) Tab PO 1,000 unit DAILY JARROD Administration Dextrose 0 ml 01/09/22 14:48 Dextrose 10% *Hypoglycemia IV PRN PRN Hypoglycemia Heparin Sodium (Porcine) 5,000 unit 01/09/22 22:00 01/16/22 09:03 Heparin 5,000 Unit/1 Ml Vial SUB-Q 5,000 unit Q12HR JARROD Administration Hydralazine HCl 10 mg 01/12/22 11:21 Hydralazine 20 Mg/1 Ml Inj IV Q4HR PRN Hypertension Hydromorphone HCl 0.25 mg 01/09/22 15:00 Hydromorphone 1 Mg/1 Ml Inj IV Q4H PRN Pain, Moderate (4-6) Hydromorphone HCl 0.5 mg 01/09/22 15:00 Hydromorphone 1 Mg/1 Ml Inj IV Q23H PRN Pain , Severe (7-10) Doxycycline Hyclate 100 mg/ 250 mls @ 250 mls/hr 01/11/22 14:00 01/16/22 09:04 Sodium Chloride IV 01/17/22 22:59 250 mls/hr Q12HR JARROD Administration Protocol Dextrose 1,000 mls @ 125 mls/hr 01/12/22 15:00 01/16/22 04:43 D5w IV 125 mls/hr DIRECT JARROD Administration Sodium Chloride 100 mls @ 999 mls/hr 01/15/22 09:08 Nacl 0.9% IV MYRNA PRN Hypotension Insulin Human Regular 0 units 01/15/22 18:00 01/16/22 12:49 Insulin Regular, Human 100 Units/1 Ml SUB-Q Not Given Q6H JARROD Protocol Methylprednisolone Sodium Succinate 40 mg 01/12/22 10:00 01/16/22 09:04 Methylprednisolone Sod Succinate 40 Mg/1 Ml Inj IV 40 mg QDAY JARROD Administration Ondansetron HCl 4 mg 01/09/22 16:00 Ondansetron 4 Mg/2 Ml Inj IV Q8H PRN Nausea And Vomiting Oxycodone/Acetaminophen 1 tab 01/09/22 15:00 01/16/22 08:55 Oxycodone /Acetaminophen 5-325mg Tab PO 1 tab Q16H PRN Administration Pain, Moderate (4-6) Sodium Chloride 10 ml 01/09/22 22:00 01/16/22 09:03 Sodium Chloride 0.9% 10 Ml Flush Syringe IV 10 ml BID JARROD Administration Sodium Chloride 10 ml 01/09/22 15:00 01/15/22 21:08 Sodium Chloride 0.9% 10 Ml Flush Syringe IV 10 ml PRN PRN Administration LINE FLUSH Zinc Sulfate 220 mg 01/09/22 22:00 01/16/22 09:45 Zinc Sulfate 220 Mg Cap PO 220 mg BID JARROD Administration Nutrition/Malnutrition Assess - Dietary Evaluation Nutrition/Malnutrition Findings: Nutrition Notes Start: 01/10/22 13:52 Freq: Status: Active Protocol: Document 01/16/22 12:36 FLOR (Rec: 01/16/22 13:11 FLOR [id number]) Nutrition Notes Initial or Follow up Reassessment Current Diagnosis Acute Kidney Injury,Decubitus( Pressure Ulcer),Sepsis, Respiratory Failure, Malnutrition Other Pertinent Diagnosis COVID-19/Pneumonia, Metabolic Acidosis, KELSIE/ATN, Dysphagia, Dementia... Current Diet TF-Nepro w/CARBSTEADY @ 30 ml/ hr (since L 01/16). Labs/Tests 01/16: Na 149, K 3.5, Cl 111.6 , CO2 14, BUN 174, Crea 4.1, Glu 167. Pertinent Medications 01/16: Vit C, Vit D3, Dw5 1000 ml @ 125 ml/hr, KCl 40 mEq in 400 ml @ 100 ml/hr, ZnSO4, others nutritionally unremarkable. Height 5 ft 4 in Weight 48 kg [place] Body Weight (kg) 54.54 BMI 18.1 Weight change and time frame No body weight change reported in 1 week. Weight Status Underweight Subjective/Other Information RD consult for routine F/U on dietary advancement. TF resumed as previously prescribed. Pt to be discharged to SNF once clinically stable. Vascath placed on 01/14, well tolerated. Percent of energy/protein needs met: Prescribed TF-Nepro w/ CARBSTEADY @ 30 ml/hr provides for energy/protein needs (1, 296 Kcal/58 g) during LOS, 77% Kcal; 100% AA. Burn Absent Trauma Absent GI Symptoms None Difficulty In Swallowing Food Allergy No Skin Integrity/Comment Sacral Decubitus Current % PO Other Minimum of two criteria Yes Energy Intake (severe) < or equal to 50% Estimated Energy Requirement > or equal to 5 days Body Fat Depletion Moderate depletion (severe) Protein-Calorie Malnutrition Severe #1 Nutrition Diagnosis Underweight Diagnosis Progress(for reassessment Continues documentation) Is patient on ventilator? No Is Patient Ambulatory and/or Out of Bed No REE-([place]-confined to bed) 1223.568 Kcal/Kg value to use for calculation 35 Approximate Energy Requirements Using 1680 kcal/Kg Calculation Used for Recommendations Kcal/kg Additional Notes Protein: 1.2-1.5 g/Kg; 58-72 g /day. Fluids: 1 ml/Kcal, or as per MD. Nutrition Intervention Nutrition Support: Resume TF-Nepro w/CARBSTEADY @ 30 ml/hr. Flush: 130 ml water Q 4 hr, or as per MD. Kcal 1,296 Protein (gm) 58 Carbohydrates (gm) 116 Fat (gm) 69 Fluid (mL) 523 Fiber (gm) 9 % RDI: 77% Kcal; 100% AA. Goal #1 Provide at least 75% of energy /protein needs through Enteral Feeding during LOS. Goal #2 Maintain body weight within +/ -3% of admission body weight during LOS. Follow-Up By: 01/23/22 Additional Comments Continue monitoring TF tolerance and BM.
--- NOTE | 2022-01-16 16:17 | Progress Note ---
Assessment and Plan Impression: * Acute kidney injury secondary to COVID related ATN * Azotemia secondary to multifactorial etiologies: KELSIE vs steroids * Hypernatremia * Acute hypoxic respiratory failure secondary to COVID 19 PNA * COVID 19 infection Plan: * S/p HD #1 yesterday, no HD today given dramatic decrease in BUN * HD tomorrow if no signs of renal recovery * Appreciate vascath placement per vascular, will need permacath prior to discharge * Dr. Hurley updated patient's daughter/NOK/POA 01/13 Ananya Galvan at [phone], daughter consents to dialysis * Continue IVF for now as patient does appear dry, start with no fluid removal with HD and adjust moving forward * Continue free water w/ tube feeds * Steroids per primary team * Management of COVID 19 per primary team * Avoid potential nephrotoxins * Dose medications for renal function * Outpatient HD unit placement pending Subjective Date of service: 01/16/22 Interval history: No acute events noted, patient resting in bed. Chart/vitals/labs reviewed in detail Objective - Exam Narrative Exam: General appearance: frail EENT: ATNC, mucous membranes dry Respiratory: Present: Clear to Ascultation Cardiology: regular, S1S2 Gastrointestinal: normal, no tenderness, no distended Neurologic: other (awake, tracks) - Vital Signs Vital signs: Vital Signs - 12hr 01/16/22 01/16/22 01/16/22 04:59 12:00 14:03 Temperature 97.7 F Pulse Rate 59 L 87 Respiratory 16 16 Rate Blood Pressure 154/74 128/77 O2 Sat by Pulse 100 96 100 Oximetry 01/16/22 14:25 Temperature 98.1 F Pulse Rate Respiratory Rate Blood Pressure O2 Sat by Pulse Oximetry - Lab 01/10/22 06:16 01/16/22 06:50 Most recent lab results Calcium 8.6 mg/dL (8.4-10.2) 01/16/22 06:50 Phosphorus 4.90 mg/dL (2.5-4.5) H 01/16/22 06:50 Magnesium 1.60 mg/dL (1.7-2.3) L 01/16/22 06:50 Medications & Allergies - Medications Allergies/Adverse Reactions: Allergies No Known Allergies Allergy (Verified 01/09/22 11:43) Home Medications: Home Medications Medication Instructions Recorded Confirmed Last Taken Type amLODIPine 10 mg PO QDAY #30 tablet 03/09/21 01/09/22 Unknown Rx carvediloL [Coreg] 3.125 mg PO BID #60 tablet 03/09/21 01/09/22 Unknown Rx Cholecalciferol Vit D3 [Vitamin D3 1,000 unit PO DAILY #30 tablet 01/16/22 Unknown Rx 1,000 UNIT TAB] Active Medications: Generic Name Dose Route Start Last Admin Trade Name Freq PRN Reason Stop Dose Admin Acetaminophen 650 mg 01/09/22 15:00 01/09/22 22:12 Acetaminophen 325 Mg Tab PO 650 mg Q4H PRN Administration Pain MILD(1-3)/Fever >100.5/RILEY Albuterol 2.5 mg 01/09/22 14:25 Albuterol 2.5 Mg/3 Ml Nebu IH Q4HRT PRN Shortness Of Breath Amlodipine Besylate 10 mg 01/12/22 12:00 01/16/22 09:02 Amlodipine 10 Mg Tab PO 10 mg QDAY JARROD Administration Ascorbic Acid 500 mg 01/09/22 22:00 01/16/22 09:03 Ascorbic Acid 500 Mg Tab PO 500 mg BID JARROD Administration Carvedilol 3.125 mg 01/12/22 12:00 01/16/22 09:02 Carvedilol 3.125 Mg Tab PO 3.125 mg BID JARROD Administration Cholecalciferol 1,000 unit 01/10/22 10:00 01/16/22 09:02 Cholecalciferol (Vit D3) 1000 Unit (25 Mcg) Tab PO 1,000 unit DAILY JARROD Administration Dextrose 0 ml 01/09/22 14:48 Dextrose 10% *Hypoglycemia IV PRN PRN Hypoglycemia Heparin Sodium (Porcine) 5,000 unit 01/09/22 22:00 01/16/22 09:03 Heparin 5,000 Unit/1 Ml Vial SUB-Q 5,000 unit Q12HR JARROD Administration Hydralazine HCl 10 mg 01/12/22 11:21 Hydralazine 20 Mg/1 Ml Inj IV Q4HR PRN Hypertension Hydromorphone HCl 0.25 mg 01/09/22 15:00 Hydromorphone 1 Mg/1 Ml Inj IV Q4H PRN Pain, Moderate (4-6) Hydromorphone HCl 0.5 mg 01/09/22 15:00 Hydromorphone 1 Mg/1 Ml Inj IV Q23H PRN Pain , Severe (7-10) Doxycycline Hyclate 100 mg/ 250 mls @ 250 mls/hr 01/11/22 14:00 01/16/22 09:04 Sodium Chloride IV 01/17/22 22:59 250 mls/hr Q12HR JARROD Administration Protocol Dextrose 1,000 mls @ 125 mls/hr 01/12/22 15:00 01/16/22 04:43 D5w IV 125 mls/hr DIRECT JARROD Administration Sodium Chloride 100 mls @ 999 mls/hr 01/15/22 09:08 Nacl 0.9% IV MYRNA PRN Hypotension Insulin Human Regular 0 units 01/15/22 18:00 01/16/22 12:49 Insulin Regular, Human 100 Units/1 Ml SUB-Q Not Given Q6H [facility] Protocol Methylprednisolone Sodium Succinate 40 mg 01/12/22 10:00 01/16/22 09:04 Methylprednisolone Sod Succinate 40 Mg/1 Ml Inj IV 40 mg QDAY JARROD Administration Ondansetron HCl 4 mg 01/09/22 16:00 Ondansetron 4 Mg/2 Ml Inj IV Q8H PRN Nausea And Vomiting Oxycodone/Acetaminophen 1 tab 01/09/22 15:00 01/16/22 08:55 Oxycodone /Acetaminophen 5-325mg Tab PO 1 tab Q16H PRN Administration Pain, Moderate (4-6) Sodium Chloride 10 ml 01/09/22 22:00 01/16/22 09:03 Sodium Chloride 0.9% 10 Ml Flush Syringe IV 10 ml BID JARROD Administration Sodium Chloride 10 ml 01/09/22 15:00 01/15/22 21:08 Sodium Chloride 0.9% 10 Ml Flush Syringe IV 10 ml PRN PRN Administration LINE FLUSH Zinc Sulfate 220 mg 01/09/22 22:00 01/16/22 09:45 Zinc Sulfate 220 Mg Cap PO 220 mg BID JARROD Administration
--- NOTE | 2022-01-16 17:08 | Electrocardiograph Report ---
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
--- NOTE | 2022-01-16 18:34 | Progress Note ---
Assessment and Plan Cultures: SARS CoV2 PCR: Positive 01/09/2022 blood culture: No growth A/P: 62-year-old female with hypertension, [facility] resident, vascular dementia, CVA, debility was recently diagnosed with COVID-19 infection at the [facility]: #Bilateral pneumonia: Secondary to COVID-19 #Acute hypoxic respiratory failure: Secondary to above, Now on room air. #KELSIE: Renally adjust antibiotics #Sacral decubitus ulcer #Acute on chronic encephalopathy, vascular dementia #Malnutrition #Leucopenia: secondary to viral illness Recs: IV/PO Dexamethasone x 10 days Given acute kidney injury, not a candidate for Remdesivir prophylactic anticoagulation based on d-dimer per hospital protocol Completed 5 days of empiric ceftriaxone, continue added 7 days of IV/PO doxycycline trend ferritin, d-dimer, CRP every 2-3 days offloading and wound care for sacral decubitus G. Zelda Gallagher MD [facility] O: [phone] F: [phone] Subjective Date of service: 01/16/22 Interval history: Afebrile, remains on room air. Objective - Exam Narrative Exam: Physical exam deferred to reduce risk of transmission of COVID-19. Please refer to primary team's note. - Constitutional Vitals: Vital Signs Temp Pulse Resp BP Pulse Ox 98.1 F 87 16 128/77 100 01/16/22 14:25 01/16/22 14:03 01/16/22 14:03 01/16/22 14:03 01/16/22 14:03 Temperature -Last 24 Hours Temperature 98.1 F Temperature 97.7 F Temperature 98.1 F Temperature 98.0 F - Labs CBC & Chem 7: 01/10/22 06:16 01/16/22 06:50 Labs: Abnormal lab results 01/16/22 01/16/22 01/16/22 Range/Units 00:04 05:34 06:50 Potassium 3.4 L (3.6-5.0) mmol/L Carbon Dioxide 21 L D (22-30) mmol/L BUN 85 H (7-17) mg/dL Creatinine 2.6 H (0.6-1.2) mg/dL Glucose 138 H (65-100) mg/dL POC Glucose 172 H 146 H (70-105) mg/dL Phosphorus 4.90 H (2.5-4.5) mg/dL Magnesium 1.60 L (1.7-2.3) mg/dL 01/16/22 01/16/22 Range/Units 11:39 18:15 Potassium (3.6-5.0) mmol/L Carbon Dioxide (22-30) mmol/L BUN (7-17) mg/dL Creatinine (0.6-1.2) mg/dL Glucose (65-100) mg/dL POC Glucose 140 H 195 H (70-105) mg/dL Phosphorus (2.5-4.5) mg/dL Magnesium (1.7-2.3) mg/dL
[2022-01-17] MEDS: FREE WATER PO SCH ×6 (00:30→20:46)
[2022-01-17] MEDS: INSULIN REGULAR, HUMAN 100 UNITS/1 ML SUB-Q SCH ×4 (00:30→17:31)
[2022-01-17] MEDS: DEXTROSE 5% IN WATER 1,000 ML IV SCH (05:32)
[2022-01-17 07:13] LABS: Calcium 8.2 mg/dL (8.4-10.2)
[2022-01-17] MEDS: DOXYCYCLINE HYCLATE 100 MG in SODIUM CHLORIDE 0.9% 250ML 250 ML IV SCH ×2 (09:37→21:02)
[2022-01-17] MEDS: HEPARIN 5,000 UNIT/1 ML VIAL SUB-Q SCH ×2 (09:40→21:01)
[2022-01-17] MEDS: ASCORBIC ACID 500 MG TAB PO SCH ×2 (09:41→21:01)
[2022-01-17] MEDS: methylPREDNISolone Sod Succinate 40 MG/1 ML INJ IV SCH (09:41)
[2022-01-17] MEDS: amLODIPine 10 MG TAB PO SCH (09:41)
[2022-01-17] MEDS: carvediloL 3.125 MG TAB PO SCH ×2 (09:41→21:00)
[2022-01-17] MEDS: ZINC SULFATE 220 MG CAP PO SCH ×2 (09:42→21:01)
[2022-01-17] MEDS ORDERED: LIDOCAINE (2%) 20 MG/1 ML VIAL 20 ML MDV INFILTRATI ONE ×2 (10:47→11:30)
[2022-01-17] MEDS ORDERED: HEPARIN 10,000 UNITS/10 ML VIAL ONE (10:47)
[2022-01-17] MEDS ORDERED: HEPARIN/NS 5000 UNIT/500ML 500 ML IR ONE (10:47)
[2022-01-17] MEDS ORDERED: MIDAZOLAM 2 MG/2 ML INJ ONE (10:54)
[2022-01-17] MEDS ORDERED: fentaNYL 100 MCG/2 ML INJ ONE (10:54)
[2022-01-17] MEDS ORDERED: SODIUM CHLORIDE 0.9% 250ML 250 ML ONE (11:01)
[2022-01-17] MEDS ORDERED: MIDAZOLAM 2 MG/2 ML INJ IV ONE (11:28)
--- NOTE | 2022-01-17 11:37 | Event Note ---
Date: 01/17/22 Patient is off the floor. Afebrile. Remains off antimicrobials. Ger Stone MD, FACP, [facility] ([facility] O: [phone] F: [phone] C: [phone]
[2022-01-17] MEDS ORDERED: HEPARIN 10,000 UNITS/10 ML VIAL IV ONE (11:38)
--- NOTE | 2022-01-17 11:45 | Operative Report ---
Operative Report Operative Report: Exam: Conversion of Vas-Cath to PermCath under fluoroscopy Clinical indication: Patient with a history of acute on chronic renal failure requiring longer term access for dialysis Date: 01/17/2022 Procedure: Following an explanation of the risks, benefits and alternatives; written informed consent was obtained. The patient was brought to the angiographic suite and placed in supine position on the examination table. Initial fluoroscopic evaluation of the indwelling Vas-Cath demonstrated appropriate positioning of the catheter tip. The patient's left chest wall and neck were prepped and draped in the usual sterile fashion. 2% lidocaine was used for anesthesia at the catheter incident site and along the expected pathway of the catheter subcutaneous tract and catheter exit site. The suture was cut and a 0.035 guidewire advanced through the indwelling catheter into the infrarenal IVC to document intravenous positioning and for anchoring. The indwelling catheter was then removed intact and a 15 [place] peel-away sheath advanced over the guidewire under fluoroscopy. A Bard 23 cm glidepath tunneled hemodialysis catheter was then tunneled antegrade from the catheter exit site on the left anterior chest wall to the venotomy site. The guidewire and trocar were removed from the peel-away sheath and the catheter inserted through the peel-away sheath under fluoroscopy to position the tip in the proximal right atrium. The peel-away sheath was removed. Both ports flushed and aspirated easily and were then locked with appropriate volumes of heparin. The venotomy was approximated using 4-0 Vicryl suture. 2-0 Vicryl suture was applied to the catheter exit site for catheter retention and to approximate the catheter exit site. Sterile dressings were then applied. The patient tolerated the procedure well. There were no immediate post procedure complications. A minimal amount of conscious sedation was utilized. Continuous cardiopulmonary monitoring was utilized. Impression: Conversion of Vas-Cath to PermCath under fluoroscopy with placement of a 23 cm glidepath hemodialysis catheter the tip positioned in the proximal right atrium.
--- NOTE | 2022-01-17 13:11 | Progress Note ---
Assessment and Plan Impression: * Acute kidney injury secondary to COVID related ATN * Azotemia secondary to multifactorial etiologies: KELSIE vs steroids * Hypernatremia * Acute hypoxic respiratory failure secondary to COVID 19 PNA * COVID 19 infection Plan: * S/p HD #1 01/15 * HD today- note uptrending creatinine, remains with minimal urine output * Appreciate vascath placement per vascular, will need permacath given ongoing HD needs * Dr. Hurley updated patient's daughter/NOK/POA 01/13 Ananya Galvan at [phone], daughter consents to dialysis * Continue D5W for hydration, start with no fluid removal with HD and adjust moving forward * Steroids per primary team * Management of COVID 19 per primary team * Avoid potential nephrotoxins * Dose medications for renal function * Outpatient HD unit placement pending, likely [facility] Subjective Date of service: 01/17/22 Interval history: No acute events noted, patient resting in bed. Chart/vitals/labs reviewed in detail Objective - Exam Narrative Exam: General appearance: frail EENT: ATNC, mucous membranes dry Respiratory: Present: Clear to Ascultation Cardiology: regular, S1S2 Gastrointestinal: normal, no tenderness, no distended Neurologic: other (awake, tracks) - Vital Signs Vital signs: Vital Signs - 12hr 01/17/22 01/17/22 05:16 12:00 Temperature 98.3 F Pulse Rate 84 Respiratory 18 Rate Blood Pressure 159/82 O2 Sat by Pulse 99 98 Oximetry - Lab 01/10/22 06:16 01/17/22 06:15 Most recent lab results Calcium 8.2 mg/dL (8.4-10.2) L 01/17/22 06:15 Phosphorus 4.90 mg/dL (2.5-4.5) H 01/16/22 06:50 Magnesium 1.60 mg/dL (1.7-2.3) L 01/16/22 06:50 Medications & Allergies - Medications Allergies/Adverse Reactions: Allergies No Known Allergies Allergy (Verified 01/09/22 11:43) Home Medications: Home Medications Medication Instructions Recorded Confirmed Last Taken Type amLODIPine 10 mg PO QDAY #30 tablet 03/09/21 01/09/22 Unknown Rx carvediloL [Coreg] 3.125 mg PO BID #60 tablet 03/09/21 01/09/22 Unknown Rx Cholecalciferol Vit D3 [Vitamin D3 1,000 unit PO DAILY #30 tablet 01/16/22 Unknown Rx 1,000 UNIT TAB] Active Medications: Generic Name Dose Route Start Last Admin Trade Name Freq PRN Reason Stop Dose Admin Acetaminophen 650 mg 01/09/22 15:00 01/09/22 22:12 Acetaminophen 325 Mg Tab PO 650 mg Q4H PRN Administration Pain MILD(1-3)/Fever >100.5/RILEY Albuterol 2.5 mg 01/09/22 14:25 Albuterol 2.5 Mg/3 Ml Nebu IH Q4HRT PRN Shortness Of Breath Amlodipine Besylate 10 mg 01/12/22 12:00 01/17/22 09:41 Amlodipine 10 Mg Tab PO 10 mg QDAY [facility] Administration Ascorbic Acid 500 mg 01/09/22 22:00 01/17/22 09:41 Ascorbic Acid 500 Mg Tab PO Not Given BID [facility] Carvedilol 3.125 mg 01/12/22 12:00 01/17/22 09:41 Carvedilol 3.125 Mg Tab PO 3.125 mg BID [facility] Administration Cholecalciferol 1,000 unit 01/10/22 10:00 01/16/22 09:02 Cholecalciferol (Vit D3) 1000 Unit (25 Mcg) Tab PO 1,000 unit DAILY [facility] Administration Dextrose 0 ml 01/09/22 14:48 Dextrose 10% *Hypoglycemia IV PRN PRN Hypoglycemia Heparin Sodium (Porcine) 5,000 unit 01/09/22 22:00 01/17/22 09:40 Heparin 5,000 Unit/1 Ml Vial SUB-Q Not Given Q12HR [facility] Hydralazine HCl 10 mg 01/12/22 11:21 Hydralazine 20 Mg/1 Ml Inj IV Q4HR PRN Hypertension Hydromorphone HCl 0.25 mg 01/09/22 15:00 Hydromorphone 1 Mg/1 Ml Inj IV Q4H PRN Pain, Moderate (4-6) Hydromorphone HCl 0.5 mg 01/09/22 15:00 Hydromorphone 1 Mg/1 Ml Inj IV Q23H PRN Pain , Severe (7-10) Doxycycline Hyclate 100 mg/ 250 mls @ 250 mls/hr 01/11/22 14:00 01/17/22 09:37 Sodium Chloride IV 01/17/22 22:59 250 mls/hr Q12HR JARROD Administration Protocol Dextrose 1,000 mls @ 125 mls/hr 01/12/22 15:00 01/17/22 05:32 D5w IV 125 mls/hr DIRECT JARROD Administration Sodium Chloride 100 mls @ 999 mls/hr 01/15/22 09:08 Nacl 0.9% IV MYRNA PRN Hypotension Insulin Human Regular 0 units 01/15/22 18:00 01/17/22 05:48 Insulin Regular, Human 100 Units/1 Ml SUB-Q Not Given Q6H [facility] Protocol Methylprednisolone Sodium Succinate 40 mg 01/12/22 10:00 01/17/22 09:41 Methylprednisolone Sod Succinate 40 Mg/1 Ml Inj IV 40 mg QDAY JARROD Administration Ondansetron HCl 4 mg 01/09/22 16:00 Ondansetron 4 Mg/2 Ml Inj IV Q8H PRN Nausea And Vomiting Oxycodone/Acetaminophen 1 tab 01/09/22 15:00 01/16/22 08:55 Oxycodone /Acetaminophen 5-325mg Tab PO 1 tab Q16H PRN Administration Pain, Moderate (4-6) Sodium Chloride 10 ml 01/09/22 22:00 01/17/22 09:41 Sodium Chloride 0.9% 10 Ml Flush Syringe IV 10 ml BID JARROD Administration Sodium Chloride 10 ml 01/09/22 15:00 01/15/22 21:08 Sodium Chloride 0.9% 10 Ml Flush Syringe IV 10 ml PRN PRN Administration LINE FLUSH Zinc Sulfate 220 mg 01/09/22 22:00 01/17/22 09:42 Zinc Sulfate 220 Mg Cap PO Not Given BID JARROD
[2022-01-17] MEDS: CHOLECALCIFEROL (VIT D3) 1000 UNIT (25 mcg) TAB PO SCH (15:22)
--- NOTE | 2022-01-17 16:32 | Progress Note ---
Assessment and Plan Assessment and plan: #Sepsis -resolved #COVID-19 infection #COVID-19 pneumonia -Blood cultures NGTD x5 daysfinal; UCx negative -continue doxycycline and rocephin -continue steroids; vitamins for COVID infection not a candidate for remdesivir due to kidney function -ID following, assistance appreciated #Acute respiratory failure with hypoxia-improving -likely secondary to COVID PNA as opposed to bacterial pneumonia -Currently on 3 L nasal cannula. Continue to wean as tolerated. -continuous pulse ox -continue steroids day 7of 10 #Acute metabolic encephalopathy-resolved #hx of Vascular dementia #Cerebral atherosclerosis -multifactorial; acute change likely secondary to infection -will continue to monitor #Newly declared ESRD -SCr 2.6 today -Renal US showed medical renal disease -avoid nephrotoxins and will renally dose medications -Nephrology following, assistance appreciated -Initiated hemodialysis on 01/15/2022. Triple-lumen HD catheter replaced with permacath by vascular surgery today. -Pending HD chair at [facility] #Metabolic acidosis-resolved -secondary to renal failure #Dysphagiaresolved -Currently with PEG tube -continue tube feeds -Nutrition consult #Severe protein-calorie malnutrition -albumin 2.0 -continue TF, Nutrition managing #Sacral decubitus ulcer -Continue wound care #Discharge planning - Patient is pending HD chair - Case management has been made aware. - Discharge is tentatively 24 to 48 hours. Patient to return to [facility] once medically stable #Advanced care planning -Disease education conducted, care plan discussed, diagnoses discussed, prognosis discussed, and patient acknowledges understanding with care plan -Time: +30 min Disposition Plan: Pending possible discharge home tomorrow Total Time Spent with Patient (Minutes): 45 minutes History Interval history: No acute events overnight. Hospitalist Physical - Constitutional Vitals: Temp Pulse Resp BP Pulse Ox 98.0 F 84 18 148/80 99 01/17/22 15:45 01/17/22 15:45 01/17/22 15:45 01/17/22 15:45 01/17/22 15:45 General appearance: Present: mild distress, cachectic - EENT Eyes: Present: PERRL, EOM intact ENT: hearing intact, clear oral mucosa - Neck Neck: Present: supple, normal ROM - Respiratory Respiratory effort: normal Respiratory: bilateral: diminished - Cardiovascular Rhythm: regular Heart Sounds: Present: S1 & S2 - Extremities Extremities: no ischemia, pulses intact, pulses symmetrical, No edema, normal temperature, normal color Peripheral Pulses: within normal limits - Abdominal General gastrointestinal: soft, non-tender, non-distended, normal bowel sounds, other (PEG tube in place) - Integumentary Integumentary: Present: clear, warm, dry - Psychiatric Psychiatric: cooperative - Neurologic Neurologic: CNII-XII intact - Allied Health Allied health notes reviewed: nursing HEART Score - HEART Score Troponin: Troponin T 0.064 ng/mL (0.00-0.029) H 01/12/22 02:03 Results - Labs CBC & Chem 7: 01/10/22 06:16 01/17/22 06:15 Labs: Laboratory Last Values WBC 6.3 K/mm3 (4.5-11.0) 01/10/22 06:16 RBC 2.92 M/mm3 (3.65-5.03) L 01/10/22 06:16 Hgb 7.9 gm/dl (10.1-14.3) L 01/10/22 06:16 Hct 25.9 % (30.3-42.9) L 01/10/22 06:16 MCV 89 fl (79-97) 01/10/22 06:16 MCH 27 pg (28-32) L 01/10/22 06:16 MCHC 31 % (30-34) 01/10/22 06:16 RDW 16.8 % (13.2-15.2) H 01/10/22 06:16 Plt Count 162 K/mm3 (140-440) 01/10/22 06:16 Lymph % (Auto) [place] 01/10/22 06:16 [place] % (Auto) [place]er 01/10/22 06:16 Eos % (Auto) [place] 01/10/22 06:16 Baso % (Auto) [place] 01/10/22 06:16 Lymph # (Auto) [place] 01/10/22 06:16 [place] # (Auto) [place] 01/10/22 06:16 Eos # (Auto) [place] 01/10/22 06:16 Baso # (Auto) [place] 01/10/22 06:16 Add Manual Diff Complete 01/10/22 06:16 Total Counted 100 01/10/22 06:16 Seg Neutrophils % [place] 01/10/22 06:16 Seg Neuts % (Manual) 59.0 % (40.0-70.0) 01/10/22 06:16 Band Neutrophils % 13.0 % 01/10/22 06:16 Lymphocytes % (Manual) 8.0 % (13.4-35.0) L 01/10/22 06:16 Reactive Lymphs % (Man) 0 % 01/10/22 06:16 Monocytes % (Manual) 0 % (0.0-7.3) 01/10/22 06:16 Eosinophils % (Manual) 0 % (0.0-4.3) 01/10/22 06:16 Basophils % (Manual) 0 % (0.0-1.8) 01/10/22 06:16 Metamyelocytes % 8.0 % 01/10/22 06:16 Myelocytes % 12.0 % 01/10/22 06:16 Promyelocytes % 0 % 01/10/22 06:16 Blast Cells % 0 % 01/10/22 06:16 Nucleated RBC % Not Reportable 01/10/22 06:16 Seg Neutrophils # [place] 01/10/22 06:16 Seg Neutrophils # Man 3.7 K/mm3 (1.8-7.7) 01/10/22 06:16 Band Neutrophils # 0.8 K/mm3 01/10/22 06:16 Lymphocytes # (Manual) 0.5 K/mm3 (1.2-5.4) L 01/10/22 06:16 Abs React Lymphs (Man) 0.0 K/mm3 01/10/22 06:16 Monocytes # (Manual) 0.0 K/mm3 (0.0-0.8) 01/10/22 06:16 Eosinophils # (Manual) 0.0 K/mm3 (0.0-0.4) 01/10/22 06:16 Basophils # (Manual) 0.0 K/mm3 (0.0-0.1) 01/10/22 06:16 Metamyelocytes # 0.5 K/mm3 01/10/22 06:16 Myelocytes # 0.8 K/mm3 01/10/22 06:16 Promyelocytes # 0.0 K/mm3 01/10/22 06:16 Blast Cells # 0.0 K/mm3 01/10/22 06:16 WBC Morphology Not Reportable 01/10/22 06:16 Hypersegmented Neuts Not Reportable 01/10/22 06:16 Hyposegmented Neuts Not Reportable 01/10/22 06:16 Hypogranular Neuts Not Reportable 01/10/22 06:16 Smudge Cells Not Reportable 01/10/22 06:16 Toxic Granulation Not Reportable 01/10/22 06:16 Toxic Vacuolation Not Reportable 01/10/22 06:16 Dohle Bodies Not Reportable 01/10/22 06:16 Pelger-Huet Anomaly Not Reportable 01/10/22 06:16 Lesley Rods Not Reportable 01/10/22 06:16 Platelet Estimate Consistent w auto 01/10/22 06:16 Clumped Platelets Not Reportable 01/10/22 06:16 Plt Clumps, EDTA Not Reportable 01/10/22 06:16 Large Platelets Not Reportable 01/10/22 06:16 Giant Platelets Not Reportable 01/10/22 06:16 Platelet Satelliting Not Reportable 01/10/22 06:16 Plt Morphology Comment Not Reportable 01/10/22 06:16 RBC Morphology Not Reportable 01/10/22 06:16 Dimorphic RBCs Not Reportable 01/10/22 06:16 Polychromasia Few 01/10/22 06:16 Hypochromasia Not Reportable 01/10/22 06:16 Poikilocytosis Not Reportable 01/10/22 06:16 Anisocytosis Not Reportable 01/10/22 06:16 Microcytosis Not Reportable 01/10/22 06:16 Macrocytosis Not Reportable 01/10/22 06:16 Spherocytes Not Reportable 01/10/22 06:16 Pappenheimer Bodies Not Reportable 01/10/22 06:16 Sickle Cells Not Reportable 01/10/22 06:16 Target Cells Not Reportable 01/10/22 06:16 Tear Drop Cells Not Reportable 01/10/22 06:16 Ovalocytes Not Reportable 01/10/22 06:16 Helmet Cells Not Reportable 01/10/22 06:16 [place] Bodies Not Reportable 01/10/22 06:16 New Site Rings Not Reportable 01/10/22 06:16 [place] Cells Not Reportable 01/10/22 06:16 Bite Cells Not Reportable 01/10/22 06:16 Crenated Cell Not Reportable 01/10/22 06:16 Elliptocytes Not Reportable 01/10/22 06:16 Acanthocytes (Spur) Not Reportable 01/10/22 06:16 Rouleaux Not Reportable 01/10/22 06:16 Hemoglobin C Crystals Not Reportable 01/10/22 06:16 Schistocytes Not Reportable 01/10/22 06:16 Malaria parasites Not Reportable 01/10/22 06:16 Artemio Bodies Not Reportable 01/10/22 06:16 Hem Pathologist Commnt No 01/10/22 06:16 APTT 29.2 Sec. (24.2-36.6) 01/09/22 12:50 D-Dimer 4886.79 ng/mlDDU (0-234) H 01/11/22 07:58 Sodium 139 mmol/L (137-145) 01/17/22 06:15 Potassium 4.5 mmol/L (3.6-5.0) D 01/17/22 06:15 Chloride 105.3 mmol/L (98-107) 01/17/22 06:15 Carbon Dioxide 20 mmol/L (22-30) L 01/17/22 06:15 Anion Gap 18 mmol/L 01/17/22 06:15 BUN 97 mg/dL (7-17) H 01/17/22 06:15 Creatinine 2.8 mg/dL (0.6-1.2) H 01/17/22 06:15 Estimated GFR 21 ml/min 01/17/22 06:15 BUN/Creatinine Ratio 35 % 01/17/22 06:15 Glucose 106 mg/dL (65-100) H 01/17/22 06:15 POC Glucose 104 mg/dL (70-105) 01/17/22 10:50 Lactic Acid 1.40 mmol/L (0.7-2.0) 01/09/22 12:50 Calcium 8.2 mg/dL (8.4-10.2) L 01/17/22 06:15 Phosphorus 4.90 mg/dL (2.5-4.5) H 01/16/22 06:50 Magnesium 1.60 mg/dL (1.7-2.3) L 01/16/22 06:50 Ferritin 2182.0 ng/mL (10.0-200.0) H 01/11/22 07:58 Total Bilirubin 0.20 mg/dL (0.1-1.2) 01/09/22 12:50 Direct Bilirubin < 0.2 mg/dL (0-0.2) 01/09/22 12:50 Indirect Bilirubin 0.0 mg/dL 01/09/22 12:50 AST 75 units/L (5-40) H 01/09/22 12:50 ALT 31 units/L (7-56) 01/09/22 12:50 Alkaline Phosphatase 69 units/L (35-129) 01/09/22 12:50 Lactate Dehydrogenase 332 units/L (91-180) H 01/11/22 07:58 Troponin T 0.064 ng/mL (0.00-0.029) H 01/12/22 02:03 C-Reactive Protein 30.40 mg/dL (0.00-1.30) H 01/11/22 07:58 NT-Pro-B Natriuret Pep 608.7 pg/mL (0-900) 01/09/22 12:50 Total Protein 7.9 g/dL (6.3-8.2) 01/09/22 12:50 Albumin 2.0 g/dL (3.9-5) L 01/09/22 12:50 Albumin/Globulin Ratio 0.3 % 01/09/22 12:50 Triglycerides 442 mg/dL (2-149) H 01/12/22 02:03 Cholesterol 132 mg/dL (50-199) 01/12/22 02:03 LDL Cholesterol Direct TNR 01/12/22 02:03 HDL Cholesterol 14 mg/dL (40-59) L 01/12/22 02:03 Cholesterol/HDL Ratio 9.42 % 01/12/22 02:03 Procalcitonin > 200.00 ng/mL (<0.15) 01/11/22 07:58 Urine Color Yellow (Yellow) 01/09/22 13:52 Urine Turbidity Hazy (Clear) 01/09/22 13:52 Urine pH 6.0 (5.0-7.0) 01/09/22 13:52 Ur Specific [place] 1.020 (1.003-1.030) 01/09/22 13:52 Urine Protein 100 mg/dl mg/dL (Negative) 01/09/22 13:52 Urine Glucose (UA) Neg mg/dL (Negative) 01/09/22 13:52 Urine Ketones Neg mg/dL (Negative) 01/09/22 13:52 Urine Blood Neg (Negative) 01/09/22 13:52 Urine Nitrite Neg (Negative) 01/09/22 13:52 Urine Bilirubin Neg (Negative) 01/09/22 13:52 Urine Urobilinogen < 2.0 mg/dL (<2.0) 01/09/22 13:52 Ur Leukocyte Esterase Neg (Negative) 01/09/22 13:52 Urine WBC (Auto) 4.0 /HPF (0.0-6.0) 01/09/22 13:52 Urine RBC (Auto) 3.0 /HPF (0.0-6.0) 01/09/22 13:52 U Epithel Cells (Auto) 2.0 /HPF (0-13.0) 01/09/22 13:52 Urine Bacteria (Auto) 1+ /HPF (Negative) 01/09/22 13:52 Urine Mucus Few /HPF 01/09/22 13:52 C. difficile Tox (PCR) Negative (Negative) 01/16/22 10:30 Coronavirus (PCR) Negative (Negative) 01/16/22 Unknown Hepatitis A IgM Ab Non-reactive (NonReactive) 01/14/22 Unknown Hep Bs Antigen Non-reactive (Negative) 01/14/22 Unknown Hep B Core IgM Ab Non-reactive (NonReactive) 01/14/22 Unknown Hepatitis C Antibody Non-reactive (NonReactive) 01/14/22 Unknown Blood Type B POSITIVE 01/09/22 14:37 Antibody Screen Negative 01/09/22 14:37 Samuel/IV: Voiding Method Incontinent Active Medications - Current Medications Current Medications: Generic Name Dose Route Start Last Admin Trade Name Freq PRN Reason Stop Dose Admin Acetaminophen 650 mg 01/09/22 15:00 01/09/22 22:12 Acetaminophen 325 Mg Tab PO 650 mg Q4H PRN Administration Pain MILD(1-3)/Fever >100.5/RILEY Albuterol 2.5 mg 01/09/22 14:25 Albuterol 2.5 Mg/3 Ml Nebu IH Q4HRT PRN Shortness Of Breath Amlodipine Besylate 10 mg 01/12/22 12:00 01/17/22 09:41 Amlodipine 10 Mg Tab PO 10 mg QDAY JARROD Administration Ascorbic Acid 500 mg 01/09/22 22:00 01/17/22 09:41 Ascorbic Acid 500 Mg Tab PO Not Given BID [facility] Carvedilol 3.125 mg 01/12/22 12:00 01/17/22 09:41 Carvedilol 3.125 Mg Tab PO 3.125 mg BID JARROD Administration Cholecalciferol 1,000 unit 01/10/22 10:00 01/17/22 15:22 Cholecalciferol (Vit D3) 1000 Unit (25 Mcg) Tab PO Not Given DAILY JARROD Dextrose 0 ml 01/09/22 14:48 Dextrose 10% *Hypoglycemia IV PRN PRN Hypoglycemia Heparin Sodium (Porcine) 5,000 unit 01/09/22 22:00 01/17/22 09:40 Heparin 5,000 Unit/1 Ml Vial SUB-Q Not Given Q12HR [facility] Hydralazine HCl 10 mg 01/12/22 11:21 Hydralazine 20 Mg/1 Ml Inj IV Q4HR PRN Hypertension Hydromorphone HCl 0.25 mg 01/09/22 15:00 Hydromorphone 1 Mg/1 Ml Inj IV Q4H PRN Pain, Moderate (4-6) Hydromorphone HCl 0.5 mg 01/09/22 15:00 Hydromorphone 1 Mg/1 Ml Inj IV Q23H PRN Pain , Severe (7-10) Doxycycline Hyclate 100 mg/ 250 mls @ 250 mls/hr 01/11/22 14:00 01/17/22 09:37 Sodium Chloride IV 01/17/22 22:59 250 mls/hr Q12HR JARROD Administration Protocol Dextrose 1,000 mls @ 125 mls/hr 01/12/22 15:00 01/17/22 05:32 D5w IV 125 mls/hr DIRECT JARROD Administration Sodium Chloride 100 mls @ 999 mls/hr 01/15/22 09:08 Nacl 0.9% IV MYRNA PRN Hypotension Insulin Human Regular 0 units 01/15/22 18:00 01/17/22 14:45 Insulin Regular, Human 100 Units/1 Ml SUB-Q Not Given Q6H [facility] Protocol Methylprednisolone Sodium Succinate 40 mg 01/12/22 10:00 01/17/22 09:41 Methylprednisolone Sod Succinate 40 Mg/1 Ml Inj IV 40 mg QDAY JARROD Administration Ondansetron HCl 4 mg 01/09/22 16:00 Ondansetron 4 Mg/2 Ml Inj IV Q8H PRN Nausea And Vomiting Oxycodone/Acetaminophen 1 tab 01/09/22 15:00 01/16/22 08:55 Oxycodone /Acetaminophen 5-325mg Tab PO 1 tab Q16H PRN Administration Pain, Moderate (4-6) Sodium Chloride 10 ml 01/09/22 22:00 01/17/22 09:41 Sodium Chloride 0.9% 10 Ml Flush Syringe IV 10 ml BID JARROD Administration Sodium Chloride 10 ml 01/09/22 15:00 01/15/22 21:08 Sodium Chloride 0.9% 10 Ml Flush Syringe IV 10 ml PRN PRN Administration LINE FLUSH Zinc Sulfate 220 mg 01/09/22 22:00 01/17/22 09:42 Zinc Sulfate 220 Mg Cap PO Not Given BID JARROD Nutrition/Malnutrition Assess - Dietary Evaluation Nutrition/Malnutrition Findings: Nutrition Notes Start: 01/10/22 13:52 Freq: Status: Active Protocol: Document 01/16/22 12:36 FLOR (Rec: 01/16/22 13:11 FLOR [id number]) Nutrition Notes Initial or Follow up Reassessment Current Diagnosis Acute Kidney Injury,Decubitus( Pressure Ulcer),Sepsis, Respiratory Failure, Malnutrition Other Pertinent Diagnosis COVID-19/Pneumonia, Metabolic Acidosis, KELSIE/ATN, Dysphagia, Dementia... Current Diet TF-Nepro w/CARBSTEADY @ 30 ml/ hr (since L 01/16). Labs/Tests 01/16: Na 149, K 3.5, Cl 111.6 , CO2 14, BUN 174, Crea 4.1, Glu 167. Pertinent Medications 01/16: Vit C, Vit D3, Dw5 1000 ml @ 125 ml/hr, KCl 40 mEq in 400 ml @ 100 ml/hr, ZnSO4, others nutritionally unremarkable. Height 5 ft 4 in Weight 48 kg [place] Body Weight (kg) 54.54 BMI 18.1 Weight change and time frame No body weight change reported in 1 week. Weight Status Underweight Subjective/Other Information RD consult for routine F/U on dietary advancement. TF resumed as previously prescribed. Pt to be discharged to SNF once clinically stable. Vascath placed on 01/14, well tolerated. Percent of energy/protein needs met: Prescribed TF-Nepro w/ CARBSTEADY @ 30 ml/hr provides for energy/protein needs (1, 296 Kcal/58 g) during LOS, 77% Kcal; 100% AA. Burn Absent Trauma Absent GI Symptoms None Difficulty In Swallowing Food Allergy No Skin Integrity/Comment Sacral Decubitus Current % PO Other Minimum of two criteria Yes Energy Intake (severe) < or equal to 50% Estimated Energy Requirement > or equal to 5 days Body Fat Depletion Moderate depletion (severe) Protein-Calorie Malnutrition Severe #1 Nutrition Diagnosis Underweight Diagnosis Progress(for reassessment Continues documentation) Is patient on ventilator? No Is Patient Ambulatory and/or Out of Bed No REE-([place]-confined to bed) 1223.568 Kcal/Kg value to use for calculation 35 Approximate Energy Requirements Using 1680 kcal/Kg Calculation Used for Recommendations Kcal/kg Additional Notes Protein: 1.2-1.5 g/Kg; 58-72 g /day. Fluids: 1 ml/Kcal, or as per MD. Nutrition Intervention Nutrition Support: Resume TF-Nepro w/CARBSTEADY @ 30 ml/hr. Flush: 130 ml water Q 4 hr, or as per MD. Kcal 1,296 Protein (gm) 58 Carbohydrates (gm) 116 Fat (gm) 69 Fluid (mL) 523 Fiber (gm) 9 % RDI: 77% Kcal; 100% AA. Goal #1 Provide at least 75% of energy /protein needs through Enteral Feeding during LOS. Goal #2 Maintain body weight within +/ -3% of admission body weight during LOS. Follow-Up By: 01/23/22 Additional Comments Continue monitoring TF tolerance and BM.
[2022-01-18] MEDS: FREE WATER PO SCH ×6 (00:08→20:05)
[2022-01-18] MEDS: INSULIN REGULAR, HUMAN 100 UNITS/1 ML SUB-Q SCH ×5 (00:10→17:41)
[2022-01-18] MEDS ORDERED: SIMPLE SYRUP 15 ML FEEDTUBE PRN ×2 (07:11)
[2022-01-18] MEDS ORDERED: SODIUM BICARBONATE 325 MG TAB FEEDTUBE PRN (07:11)
[2022-01-18] MEDS ORDERED: LIPASE 10,500/PROTEASE 25,000/AMYLASE 43,750 (UNITS) DR CAP FEEDTUBE PRN (07:11)
[2022-01-18] MEDS: ZINC SULFATE 220 MG CAP PO SCH ×2 (09:24→21:20)
[2022-01-18] MEDS: CHOLECALCIFEROL (VIT D3) 1000 UNIT (25 mcg) TAB PO SCH (09:24)
[2022-01-18] MEDS: NIFEdipine XL 30 MG TAB PO SCH (09:24)
[2022-01-18] MEDS: LOSARTAN 50 MG TAB PO SCH (09:24)
[2022-01-18] MEDS: ASCORBIC ACID 500 MG TAB PO SCH ×2 (09:24→21:20)
[2022-01-18] MEDS: methylPREDNISolone Sod Succinate 40 MG/1 ML INJ IV SCH (09:24)
[2022-01-18] MEDS: carvediloL 3.125 MG TAB PO SCH ×2 (09:24→21:20)
[2022-01-18] MEDS: HEPARIN 5,000 UNIT/1 ML VIAL SUB-Q SCH ×2 (09:24→21:20)
--- NOTE | 2022-01-18 10:31 | Discharge Summary ---
Providers - Providers Date of Admission: 01/09/22 14:25 Date of discharge: 01/18/22 Attending physician: JESSA NELSON MD 01/11/22 08:46 Consult to Physician [CONS] Routine Comment: Consulting Provider: ANÍBAL WHEATLEY Physician Instructions: Reason For Exam: COVID infection 01/11/22 08:47 Consult to Physician [CONS] Routine Comment: Consulting Provider: CASS WEISS Physician Instructions: Reason For Exam: KELSIE 01/13/22 15:21 Consult to Physician [CONS] Routine Comment: Consulting Provider: HENRIETTA TRIVEDI Physician Instructions: Reason For Exam: vascath insertion for 01/14, KELSIE 01/14/22 06:48 Consult to Wound/ET Nurse [CONS] Routine Reason For Exam: wound eval 01/16/22 12:52 Consult to Dietitian/Nutrition [CONS] Routine Physician Instructions: Reason For Exam: Reason for Consult: Write/Manage Tube Feeding 01/16/22 15:24 Consult to Physician [CONS] Routine Comment: Consulting Provider: HENRIETTA STOCK Physician Instructions: Reason For Exam: Permacath placement 01/18/22 07:11 Consult to Dietitian/Nutrition [CONS] Routine Physician Instructions: Assess nutrtn needs, initiate, modify, manage TF Reason For Exam: Reason for Consult: Write/Manage Tube Feeding Reason for Consult: Write/Manage Tube Feeding Primary care physician: GEETA RUVALCABA Hospitalization Reason for admission: Sepsis; acute hypoxic respiratory failure; acute metabolic encephalopathy Condition: Stable Pertinent studies: Reviewed. Procedures: Vas-Cath placement; permacath placement Hospital course: Patient is a 62-year-old female past medical history of vascular dementia, cerebral atherosclerosis, malnutrition, and debility who presented from a longterm facility for decreased cognition, increased confusion and worsening weakness. The patient was evaluated in the ED and found to be hypoxic to 80% on room air, febrile to 101.2 F, tachycardic in the 130s, and tachypneic in the 40s. Chest x-ray revealed bilateral pneumonia complicated by sepsis as well as toxic metabolic encephalopathy. The patient was started on IV fluids and antibiotics for sepsis management. Presentation the patient was also found to have hypernatremia (sodium 154), hyperkalemia (potassium 5.3), and a negative lactic acid. The patient was found to be positive for COVID-19 complicated by acute hypoxic respiratory failure; however, she was not a candidate for remdesivir in the setting of worsening renal function. Infectious disease was consulted for further management. The patient's creatinine continued to uptrend, and nephrology was consulted. It was deemed that the patient likely had KELSIE secondary to COVID-19 infection versus ESRD. The patient had a Vas-Cath placed by vascular surgery on 01/14/2022 that was eventually replaced with a permacath on 01/17/2022. The patient has since been weaned off of supplemental oxygen and is currently hemodynamically stable. The patient has been undergoing hemodialysis sessions while inpatient, and she is currently pending a chair at [facility]. Patient is medically clear for discharge. The patient's daughter has been made aware. Disposition: [facility] Final Discharge Diagnosis (Prints w/discharge instructions): Acute hypoxic respiratory failure, COVID-19 pneumonia, sepsis, acute metabolic encephalopathy, ATN versus ESRD, metabolic acidosis, dysphagia, severe protein caloric malnutrition, sacral decubitus ulcer, history of vascular dementia Time spent for discharge: 45 min Core Measure Documentation - Palliative Care Palliative Care/ Comfort Measures: Not Applicable - Core Measures Any of the following diagnoses?: history only Exam - Constitutional Vitals: Temp Pulse Resp BP Pulse Ox 98.5 F 74 20 163/75 100 01/18/22 05:51 01/18/22 05:51 01/18/22 05:51 01/18/22 06:29 01/18/22 05:51 General appearance: Present: no acute distress, cachectic - EENT Eyes: Present: PERRL, EOM intact ENT: hearing intact, clear oral mucosa, edentulous - Neck Neck: Present: supple, normal ROM - Respiratory Respiratory effort: normal Respiratory: bilateral: diminished - Cardiovascular Rhythm: regular Heart Sounds: Present: S1 & S2 - Extremities Extremities: no ischemia, pulses intact, pulses symmetrical, No edema, normal temperature, normal color Peripheral Pulses: within normal limits - Abdominal General gastrointestinal: Present: soft, non-tender, non-distended, normal bowel sounds, other (PEG tube in place) Female genitourinary: Present: deferred - Rectal Rectal Exam: deferred - Integumentary Integumentary: Present: clear, warm, dry - Musculoskeletal Musculoskeletal: generalized weakness - Psychiatric Psychiatric: cooperative - Neurologic Neurologic: CNII-XII intact - Allied Health Allied health notes reviewed: nursing Plan Activity: no restrictions Diet: diabetic (Tube feeds), renal Additional Instructions: Patient is a 62-year-old female past medical history of vascular dementia, cerebral atherosclerosis, malnutrition, and debility who presented from a longterm facility for decreased cognition, increased confusion and worsening weakness. The patient was evaluated in the ED and found to be hypoxic to 80% on room air, febrile to 101.2 F, tachycardic in the 130s, and tachypneic in the 40s. Chest x-ray revealed bilateral pneumonia complicated by sepsis as well as toxic metabolic encephalopathy. The patient was started on IV fluids and antibiotics for sepsis management. Presentation the patient was also found to have hypernatremia (sodium 154), hyperkalemia (potassium 5.3), and a negative lactic acid. The patient was found to be positive for COVID-19 complicated by acute hypoxic respiratory failure; however, she was not a candidate for remdesivir in the setting of worsening renal function. Infectious disease was consulted for further management. The patient's creatinine continued to uptrend, and nephrology was consulted. It was deemed that the patient likely had KELSIE secondary to COVID-19 infection versus ESRD. The patient had a Vas-Cath placed by vascular surgery on 01/14/2022 that was eventually replaced with a permacath on 01/17/2022. The patient has since been weaned off of supplemental oxygen and is currently hemodynamically stable. The patient has been undergoing hemodialysis sessions while inpatient, and she is currently pending a chair at [facility]. Patient is medically clear for discharge. The patient's daughter has been made aware. Care Plan Goals: Patient is medically cleared for discharge. Assessment: Patient is a 62-year-old female past medical history of vascular dementia, cerebral atherosclerosis, malnutrition, and debility who presented from a longterm facility for decreased cognition, increased confusion and worsening weakness. The patient was evaluated in the ED and found to be hypoxic to 80% on room air, febrile to 101.2 F, tachycardic in the 130s, and tachypneic in the 40s. Chest x-ray revealed bilateral pneumonia complicated by sepsis as well as toxic metabolic encephalopathy. The patient was started on IV fluids and antibiotics for sepsis management. Presentation the patient was also found to have hypernatremia (sodium 154), hyperkalemia (potassium 5.3), and a negative lactic acid. The patient was found to be positive for COVID-19 complicated by acute hypoxic respiratory failure; however, she was not a candidate for remdesivir in the setting of worsening renal function. Infectious disease was consulted for further management. The patient's creatinine continued to uptrend, and nephrology was consulted. It was deemed that the patient likely had KELSIE secondary to COVID-19 infection versus ESRD. The patient had a Vas-Cath placed by vascular surgery on 01/14/2022 that was eventually replaced with a permacath on 01/17/2022. The patient has since been weaned off of supplemental oxygen and is currently hemodynamically stable. The patient has been undergoing hemodialysis sessions while inpatient, and she is currently pending a chair at [facility]. Patient is medically clear for discharge. The patient's daughter has been made aware. Follow up with: GEETA RUVALCABA MD [Primary Care Provider] - 3-5 Days Prescriptions: Losartan [Cozaar] 50 mg PO QDAY #30 tablet NIFEdipine XL [Procardia Xl] 30 mg PO QDAY #30 tablet Cholecalciferol Vit D3 [Vitamin D3 1,000 UNIT TAB] 1,000 unit PO DAILY #30 tablet
--- NOTE | 2022-01-18 10:47 | Progress Note ---
Assessment and Plan Cultures: SARS CoV2 PCR: Positive 01/09/2022 blood culture: No growth A/P: 62-year-old female with hypertension, care home resident, vascular dementia, CVA, debility was recently diagnosed with COVID-19 infection at the care home: #Bilateral pneumonia: Secondary to COVID-19, given renal function was not a candidate for Remdesivir. Received steroids. Completed empiric ceftriaxone and doxycycline. #Acute hypoxic respiratory failure: Secondary to above. Improved. #KELSIE: Renally adjust antibiotics, now on HD, got PermCath placed. #Sacral decubitus ulcer #Acute on chronic encephalopathy, vascular dementia #Malnutrition #Leucopenia: secondary to viral illness Recs: Remains off antimicrobials Remove right neck TLC prior to discharge offloading and wound care for sacral decubitus d/w Dr. Mckeon. Will sign off. Please call with questions. Ger Stone MD, FACP, [facility] O: [phone] F: [phone] Subjective Date of service: 01/18/22 Interval history: Afebrile. Poor historian. Underwent left PermCath placement yesterday. Objective - Exam Narrative Exam: Physical Exam: Constitutional: Alert, awake, frail Head, Ears, Nose: Normocephalic, atraumatic. External ears, nose normal Eyes: Conjunctivae/corneas clear. No icterus. No ptosis. Neck: Supple, no meningeal signs. R neck TLC + Cardiovascular: S1, S2 + Respiratory: AE fair GI: Soft, non-tender; bowel sounds normal. No peritoneal signs. G-tube present, L permcath + Musculoskeletal: No pedal edema, no cyanosis. Unable to turn, unable to evaluate decubitus ulcer Skin: No rash or abscess Hem/Lymphatic: No palpable cervical or supraclavicular nodes. No lymphangitis Psych: calm, no agitation Neurological: Awake, alert - Constitutional Vitals: Vital Signs Temp Pulse Resp BP Pulse Ox 98.5 F 74 20 163/75 100 01/18/22 05:51 01/18/22 05:51 01/18/22 05:51 01/18/22 06:29 01/18/22 05:51 Temperature -Last 24 Hours Temperature 98.5 F Temperature 99.1 F Temperature 98.8 F Temperature 98.0 F Temperature 98.2 F - Labs CBC & Chem 7: 01/10/22 06:16 01/17/22 06:15 Labs: Abnormal lab results 01/17/22 01/17/22 01/18/22 Range/Units 17:04 22:25 05:45 POC Glucose 139 H 113 H 112 H (70-105) mg/dL
--- NOTE | 2022-01-18 16:28 | Progress Note ---
Assessment and Plan Impression: * Acute kidney injury secondary to COVID related ATN * Azotemia secondary to multifactorial etiologies: KELSIE vs steroids * Hypernatremia * Acute hypoxic respiratory failure secondary to COVID 19 PNA * COVID 19 infection Plan: * S/p HD #1 01/15, HD#2 01/17 * HD tomorrow- note uptrending creatinine, remains with minimal urine output * Appreciate permacath placement per vascular * Dr. Hurley updated patient's daughter/NOK/POA 01/13 Ananya Galvan at [phone], daughter consents to dialysis * Continue D5W for hydration, start with no fluid removal with HD and adjust moving forward * Steroids per primary team * Management of COVID 19 per primary team * Avoid potential nephrotoxins * Dose medications for renal function * Outpatient HD unit placement pending, likely [facility] Subjective Date of service: 01/18/22 Interval history: No acute events noted, patient resting in bed. Chart/vitals/labs reviewed in detail Objective - Exam Narrative Exam: Patient not directly examined today due to COVID-19 pandemic and need to limit PPE overuse) - Vital Signs Vital signs: Vital Signs - 12hr 01/18/22 01/18/22 01/18/22 05:51 06:29 07:24 Temperature 98.5 F 98.6 F Pulse Rate 74 101 H Respiratory 20 20 Rate Blood Pressure 190/98 163/75 118/57 O2 Sat by Pulse 100 97 Oximetry 01/18/22 11:49 Temperature 100.4 F H Pulse Rate 87 Respiratory 18 Rate Blood Pressure 162/86 O2 Sat by Pulse 100 Oximetry - Lab 01/10/22 06:16 01/17/22 06:15 Most recent lab results Calcium 8.2 mg/dL (8.4-10.2) L 01/17/22 06:15 Phosphorus 4.90 mg/dL (2.5-4.5) H 01/16/22 06:50 Magnesium 1.60 mg/dL (1.7-2.3) L 01/16/22 06:50 Medications & Allergies - Medications Allergies/Adverse Reactions: Allergies No Known Allergies Allergy (Verified 01/09/22 11:43) Home Medications: Home Medications Medication Instructions Recorded Confirmed Last Taken Type amLODIPine 10 mg PO QDAY #30 tablet 03/09/21 01/09/22 Unknown Rx carvediloL [Coreg] 3.125 mg PO BID #60 tablet 03/09/21 01/09/22 Unknown Rx Cholecalciferol Vit D3 [Vitamin D3 1,000 unit PO DAILY #30 tablet 01/16/22 Unknown Rx 1,000 UNIT TAB] Losartan [Cozaar] 50 mg PO QDAY #30 tablet 01/18/22 Unknown Rx NIFEdipine XL [Procardia Xl] 30 mg PO QDAY #30 tablet 01/18/22 Unknown Rx Active Medications: Generic Name Dose Route Start Last Admin Trade Name Freq PRN Reason Stop Dose Admin Acetaminophen 650 mg 01/09/22 15:00 01/09/22 22:12 Acetaminophen 325 Mg Tab PO 650 mg Q4H PRN Administration Pain MILD(1-3)/Fever >100.5/RILEY Albuterol 2.5 mg 01/09/22 14:25 Albuterol 2.5 Mg/3 Ml Nebu IH Q4HRT PRN Shortness Of Breath Lipase/Protease/Amylase 1 each 01/18/22 07:11 Lipase 10,500/Protease 25,000/Amylase 43,750 (Units) Dr Gant FEEDTUBE PRN PRN For Clogged Feeding Tube Ascorbic Acid 500 mg 01/09/22 22:00 01/18/22 09:24 Ascorbic Acid 500 Mg Tab PO 500 mg BID JARROD Administration Carvedilol 3.125 mg 01/12/22 12:00 01/18/22 09:24 Carvedilol 3.125 Mg Tab PO 3.125 mg BID JARROD Administration Cholecalciferol 1,000 unit 01/10/22 10:00 01/18/22 09:24 Cholecalciferol (Vit D3) 1000 Unit (25 Mcg) Tab PO 1,000 unit DAILY JARROD Administration Dextrose 0 ml 01/09/22 14:48 Dextrose 10% *Hypoglycemia IV PRN PRN Hypoglycemia Heparin Sodium (Porcine) 5,000 unit 01/09/22 22:00 01/18/22 09:24 Heparin 5,000 Unit/1 Ml Vial SUB-Q 5,000 unit Q12HR JARROD Administration Hydralazine HCl 10 mg 01/12/22 11:21 Hydralazine 20 Mg/1 Ml Inj IV Q4HR PRN Hypertension Hydromorphone HCl 0.25 mg 01/09/22 15:00 Hydromorphone 1 Mg/1 Ml Inj IV Q4H PRN Pain, Moderate (4-6) Hydromorphone HCl 0.5 mg 01/09/22 15:00 Hydromorphone 1 Mg/1 Ml Inj IV Q23H PRN Pain , Severe (7-10) Dextrose 1,000 mls @ 125 mls/hr 01/12/22 15:00 01/17/22 05:32 D5w IV 125 mls/hr DIRECT JARROD Administration Sodium Chloride 100 mls @ 999 mls/hr 01/15/22 09:08 Nacl 0.9% IV MYRNA PRN Hypotension Insulin Human Regular 0 units 01/15/22 18:00 01/18/22 11:47 Insulin Regular, Human 100 Units/1 Ml SUB-Q Not Given Q6H [facility] Protocol Losartan Potassium 50 mg 01/18/22 10:00 01/18/22 09:24 Losartan 50 Mg Tab PO 50 mg QDAY JARROD Administration Methylprednisolone Sodium Succinate 40 mg 01/12/22 10:00 01/18/22 09:24 Methylprednisolone Sod Succinate 40 Mg/1 Ml Inj IV 40 mg QDAY JARROD Administration Nifedipine 30 mg 01/18/22 10:00 01/18/22 09:24 Nifedipine Xl 30 Mg Tab PO 30 mg QDAY JARROD Administration Ondansetron HCl 4 mg 01/09/22 16:00 Ondansetron 4 Mg/2 Ml Inj IV Q8H PRN Nausea And Vomiting Oxycodone/Acetaminophen 1 tab 01/09/22 15:00 01/16/22 08:55 Oxycodone /Acetaminophen 5-325mg Tab PO 1 tab Q16H PRN Administration Pain, Moderate (4-6) Simple Syrup 15 ml 01/18/22 07:11 Simple Syrup 15 Ml FEEDTUBE PRN PRN Hypoglycemia Simple Syrup 30 ml 01/18/22 07:11 Simple Syrup 15 Ml FEEDTUBE PRN PRN Hypoglycemia Sodium Bicarbonate 325 mg 01/18/22 07:11 Sodium Bicarbonate 325 Mg Tab FEEDTUBE PRN PRN For Clogged Feeding Tube Sodium Chloride 10 ml 01/09/22 22:00 01/18/22 09:24 Sodium Chloride 0.9% 10 Ml Flush Syringe IV 10 ml BID JARROD Administration Sodium Chloride 10 ml 01/09/22 15:00 01/15/22 21:08 Sodium Chloride 0.9% 10 Ml Flush Syringe IV 10 ml PRN PRN Administration LINE FLUSH Zinc Sulfate 220 mg 01/09/22 22:00 01/18/22 09:24 Zinc Sulfate 220 Mg Cap PO 220 mg BID JARROD Administration
[2022-01-18] MEDS: DEXTROSE 5% IN WATER 1,000 ML IV SCH (16:37)
[2022-01-19] MEDS: INSULIN REGULAR, HUMAN 100 UNITS/1 ML SUB-Q SCH ×4 (00:08→18:00)
[2022-01-19] MEDS: FREE WATER PO SCH ×6 (00:27→20:00)
[2022-01-19] MEDS: DEXTROSE 5% IN WATER 1,000 ML IV SCH ×3 (00:57→21:33)
--- NOTE | 2022-01-19 07:36 | Progress Note ---
Assessment and Plan Assessment and plan: #Sepsis -resolved #COVID-19 infection #COVID-19 pneumoniaresolved -Blood cultures NGTD x5 daysfinal; UCx negative -continue doxycycline and rocephin -continue steroids; vitamins for COVID infection not a candidate for remdesivir due to kidney function -ID following, assistance appreciated #Acute respiratory failure with hypoxia-resolved -likely secondary to COVID PNA as opposed to bacterial pneumonia -Currently on room air -continuous pulse ox -continue steroids day 7of 10 #Acute metabolic encephalopathy-resolved #hx of Vascular dementia #Cerebral atherosclerosis -multifactorial; acute change likely secondary to infection -will continue to monitor #Newly declared ESRD -SCr 2.6 today -Renal US showed medical renal disease -avoid nephrotoxins and will renally dose medications -Nephrology following, assistance appreciated -Initiated hemodialysis on 01/15/2022. Triple-lumen HD catheter replaced with permacath by vascular surgery today. -Pending HD chair at [facility] #Metabolic acidosis-resolved -secondary to renal failure #Dysphagiaresolved -Currently with PEG tube -continue tube feeds -Nutrition consult #Severe protein-calorie malnutrition -albumin 2.0 -continue TF, Nutrition managing #Sacral decubitus ulcer -Continue wound care #Discharge planning - Patient is pending HD chair. Patient is medically ready for discharge. - Case management has been made aware. - Patient to return to [facility] once medically stable #Advanced care planning -Disease education conducted, care plan discussed, diagnoses discussed, prognosis discussed, and patient acknowledges understanding with care plan -Time: +30 min Disposition Plan: Pending discharge after HD chair is established Total Time Spent with Patient (Minutes): 30 minutes History Interval history: No acute events overnight. Hospitalist Physical - Constitutional Vitals: Temp Pulse Resp BP Pulse Ox 98.2 F 79 18 156/83 100 01/19/22 05:09 01/19/22 05:09 01/19/22 05:09 01/19/22 05:09 01/19/22 05:09 General appearance: Present: no acute distress, cachectic - EENT Eyes: Present: PERRL, EOM intact ENT: hearing intact, clear oral mucosa, poor dentition - Neck Neck: Present: supple, normal ROM, other (Permacath in left upper chest) - Respiratory Respiratory effort: normal Respiratory: bilateral: diminished - Cardiovascular Rhythm: regular Heart Sounds: Present: S1 & S2 - Extremities Extremities: no ischemia, pulses intact, pulses symmetrical, normal temperature, normal color Peripheral Pulses: within normal limits - Abdominal General gastrointestinal: soft, non-tender, non-distended, normal bowel sounds, other (PEG tube in place) - Integumentary Integumentary: Present: clear, warm, dry - Psychiatric Psychiatric: cooperative - Neurologic Neurologic: CNII-XII intact - Allied Health Allied health notes reviewed: nursing HEART Score - HEART Score Troponin: Troponin T 0.064 ng/mL (0.00-0.029) H 01/12/22 02:03 Results - Labs CBC & Chem 7: 01/10/22 06:16 01/17/22 06:15 Labs: Laboratory Last Values WBC 6.3 K/mm3 (4.5-11.0) 01/10/22 06:16 RBC 2.92 M/mm3 (3.65-5.03) L 01/10/22 06:16 Hgb 7.9 gm/dl (10.1-14.3) L 01/10/22 06:16 Hct 25.9 % (30.3-42.9) L 01/10/22 06:16 MCV 89 fl (79-97) 01/10/22 06:16 MCH 27 pg (28-32) L 01/10/22 06:16 MCHC 31 % (30-34) 01/10/22 06:16 RDW 16.8 % (13.2-15.2) H 01/10/22 06:16 Plt Count 162 K/mm3 (140-440) 01/10/22 06:16 Lymph % (Auto) Installation Tech 01/10/22 06:16 [place] % (Auto) Installation Tech 01/10/22 06:16 Eos % (Auto) Installation Tech 01/10/22 06:16 Baso % (Auto) Installation Tech 01/10/22 06:16 Lymph # (Auto) Installation Tech 01/10/22 06:16 [place] # (Auto) Installation Tech 01/10/22 06:16 Eos # (Auto) Installation Tech 01/10/22 06:16 Baso # (Auto) Installation Tech 01/10/22 06:16 Add Manual Diff Complete 01/10/22 06:16 Total Counted 100 01/10/22 06:16 Seg Neutrophils % Installation Tech 01/10/22 06:16 Seg Neuts % (Manual) 59.0 % (40.0-70.0) 01/10/22 06:16 Band Neutrophils % 13.0 % 01/10/22 06:16 Lymphocytes % (Manual) 8.0 % (13.4-35.0) L 01/10/22 06:16 Reactive Lymphs % (Man) 0 % 01/10/22 06:16 Monocytes % (Manual) 0 % (0.0-7.3) 01/10/22 06:16 Eosinophils % (Manual) 0 % (0.0-4.3) 01/10/22 06:16 Basophils % (Manual) 0 % (0.0-1.8) 01/10/22 06:16 Metamyelocytes % 8.0 % 01/10/22 06:16 Myelocytes % 12.0 % 01/10/22 06:16 Promyelocytes % 0 % 01/10/22 06:16 Blast Cells % 0 % 01/10/22 06:16 Nucleated RBC % Not Reportable 01/10/22 06:16 Seg Neutrophils # Installation Tech 01/10/22 06:16 Seg Neutrophils # Man 3.7 K/mm3 (1.8-7.7) 01/10/22 06:16 Band Neutrophils # 0.8 K/mm3 01/10/22 06:16 Lymphocytes # (Manual) 0.5 K/mm3 (1.2-5.4) L 01/10/22 06:16 Abs React Lymphs (Man) 0.0 K/mm3 01/10/22 06:16 Monocytes # (Manual) 0.0 K/mm3 (0.0-0.8) 01/10/22 06:16 Eosinophils # (Manual) 0.0 K/mm3 (0.0-0.4) 01/10/22 06:16 Basophils # (Manual) 0.0 K/mm3 (0.0-0.1) 01/10/22 06:16 Metamyelocytes # 0.5 K/mm3 01/10/22 06:16 Myelocytes # 0.8 K/mm3 01/10/22 06:16 Promyelocytes # 0.0 K/mm3 01/10/22 06:16 Blast Cells # 0.0 K/mm3 01/10/22 06:16 WBC Morphology Not Reportable 01/10/22 06:16 Hypersegmented Neuts Not Reportable 01/10/22 06:16 Hyposegmented Neuts Not Reportable 01/10/22 06:16 Hypogranular Neuts Not Reportable 01/10/22 06:16 Smudge Cells Not Reportable 01/10/22 06:16 Toxic Granulation Not Reportable 01/10/22 06:16 Toxic Vacuolation Not Reportable 01/10/22 06:16 Dohle Bodies Not Reportable 01/10/22 06:16 Pelger-Huet Anomaly Not Reportable 01/10/22 06:16 Lesley Rods Not Reportable 01/10/22 06:16 Platelet Estimate Consistent w auto 01/10/22 06:16 Clumped Platelets Not Reportable 01/10/22 06:16 Plt Clumps, EDTA Not Reportable 01/10/22 06:16 Large Platelets Not Reportable 01/10/22 06:16 Giant Platelets Not Reportable 01/10/22 06:16 Platelet Satelliting Not Reportable 01/10/22 06:16 Plt Morphology Comment Not Reportable 01/10/22 06:16 RBC Morphology Not Reportable 01/10/22 06:16 Dimorphic RBCs Not Reportable 01/10/22 06:16 Polychromasia Few 01/10/22 06:16 Hypochromasia Not Reportable 01/10/22 06:16 Poikilocytosis Not Reportable 01/10/22 06:16 Anisocytosis Not Reportable 01/10/22 06:16 Microcytosis Not Reportable 01/10/22 06:16 Macrocytosis Not Reportable 01/10/22 06:16 Spherocytes Not Reportable 01/10/22 06:16 Pappenheimer Bodies Not Reportable 01/10/22 06:16 Sickle Cells Not Reportable 01/10/22 06:16 Target Cells Not Reportable 01/10/22 06:16 Tear Drop Cells Not Reportable 01/10/22 06:16 Ovalocytes Not Reportable 01/10/22 06:16 Helmet Cells Not Reportable 01/10/22 06:16 [place] Bodies Not Reportable 01/10/22 06:16 [place] Rings Not Reportable 01/10/22 06:16 [place] Cells Not Reportable 01/10/22 06:16 Bite Cells Not Reportable 01/10/22 06:16 Crenated Cell Not Reportable 01/10/22 06:16 Elliptocytes Not Reportable 01/10/22 06:16 Acanthocytes (Spur) Not Reportable 01/10/22 06:16 Rouleaux Not Reportable 01/10/22 06:16 Hemoglobin C Crystals Not Reportable 01/10/22 06:16 Schistocytes Not Reportable 01/10/22 06:16 Malaria parasites Not Reportable 01/10/22 06:16 Artemio Bodies Not Reportable 01/10/22 06:16 Hem Pathologist Commnt No 01/10/22 06:16 APTT 29.2 Sec. (24.2-36.6) 01/09/22 12:50 D-Dimer 4886.79 ng/mlDDU (0-234) H 01/11/22 07:58 Sodium 139 mmol/L (137-145) 01/17/22 06:15 Potassium 4.5 mmol/L (3.6-5.0) D 01/17/22 06:15 Chloride 105.3 mmol/L (98-107) 01/17/22 06:15 Carbon Dioxide 20 mmol/L (22-30) L 01/17/22 06:15 Anion Gap 18 mmol/L 01/17/22 06:15 BUN 97 mg/dL (7-17) H 01/17/22 06:15 Creatinine 2.8 mg/dL (0.6-1.2) H 01/17/22 06:15 Estimated GFR 21 ml/min 01/17/22 06:15 BUN/Creatinine Ratio 35 % 01/17/22 06:15 Glucose 106 mg/dL (65-100) H 01/17/22 06:15 POC Glucose 122 mg/dL (70-105) H 01/19/22 05:20 Lactic Acid 1.40 mmol/L (0.7-2.0) 01/09/22 12:50 Calcium 8.2 mg/dL (8.4-10.2) L 01/17/22 06:15 Phosphorus 4.90 mg/dL (2.5-4.5) H 01/16/22 06:50 Magnesium 1.60 mg/dL (1.7-2.3) L 01/16/22 06:50 Ferritin 2182.0 ng/mL (10.0-200.0) H 01/11/22 07:58 Total Bilirubin 0.20 mg/dL (0.1-1.2) 01/09/22 12:50 Direct Bilirubin < 0.2 mg/dL (0-0.2) 01/09/22 12:50 Indirect Bilirubin 0.0 mg/dL 01/09/22 12:50 AST 75 units/L (5-40) H 01/09/22 12:50 ALT 31 units/L (7-56) 01/09/22 12:50 Alkaline Phosphatase 69 units/L (35-129) 01/09/22 12:50 Lactate Dehydrogenase 332 units/L (91-180) H 01/11/22 07:58 Troponin T 0.064 ng/mL (0.00-0.029) H 01/12/22 02:03 C-Reactive Protein 30.40 mg/dL (0.00-1.30) H 01/11/22 07:58 NT-Pro-B Natriuret Pep 608.7 pg/mL (0-900) 01/09/22 12:50 Total Protein 7.9 g/dL (6.3-8.2) 01/09/22 12:50 Albumin 2.0 g/dL (3.9-5) L 01/09/22 12:50 Albumin/Globulin Ratio 0.3 % 01/09/22 12:50 Triglycerides 442 mg/dL (2-149) H 01/12/22 02:03 Cholesterol 132 mg/dL (50-199) 01/12/22 02:03 LDL Cholesterol Direct TNR 01/12/22 02:03 HDL Cholesterol 14 mg/dL (40-59) L 01/12/22 02:03 Cholesterol/HDL Ratio 9.42 % 01/12/22 02:03 Procalcitonin > 200.00 ng/mL (<0.15) 01/11/22 07:58 Urine Color Yellow (Yellow) 01/09/22 13:52 Urine Turbidity Hazy (Clear) 01/09/22 13:52 Urine pH 6.0 (5.0-7.0) 01/09/22 13:52 Ur Specific [place] 1.020 (1.003-1.030) 01/09/22 13:52 Urine Protein 100 mg/dl mg/dL (Negative) 01/09/22 13:52 Urine Glucose (UA) Neg mg/dL (Negative) 01/09/22 13:52 Urine Ketones Neg mg/dL (Negative) 01/09/22 13:52 Urine Blood Neg (Negative) 01/09/22 13:52 Urine Nitrite Neg (Negative) 01/09/22 13:52 Urine Bilirubin Neg (Negative) 01/09/22 13:52 Urine Urobilinogen < 2.0 mg/dL (<2.0) 01/09/22 13:52 Ur Leukocyte Esterase Neg (Negative) 01/09/22 13:52 Urine WBC (Auto) 4.0 /HPF (0.0-6.0) 01/09/22 13:52 Urine RBC (Auto) 3.0 /HPF (0.0-6.0) 01/09/22 13:52 U Epithel Cells (Auto) 2.0 /HPF (0-13.0) 01/09/22 13:52 Urine Bacteria (Auto) 1+ /HPF (Negative) 01/09/22 13:52 Urine Mucus Few /HPF 01/09/22 13:52 C. difficile Tox (PCR) Negative (Negative) 01/16/22 10:30 Coronavirus (PCR) Negative (Negative) 01/16/22 Unknown Hepatitis A IgM Ab Non-reactive (NonReactive) 01/14/22 Unknown Hep Bs Antigen Non-reactive (Negative) 01/14/22 Unknown Hep B Core IgM Ab Non-reactive (NonReactive) 01/14/22 Unknown Hepatitis C Antibody Non-reactive (NonReactive) 01/14/22 Unknown Blood Type B POSITIVE 01/09/22 14:37 Antibody Screen Negative 01/09/22 14:37 Samuel/IV: Voiding Method Incontinent Active Medications - Current Medications Current Medications: Generic Name Dose Route Start Last Admin Trade Name Freq PRN Reason Stop Dose Admin Acetaminophen 650 mg 01/09/22 15:00 01/09/22 22:12 Acetaminophen 325 Mg Tab PO 650 mg Q4H PRN Administration Pain MILD(1-3)/Fever >100.5/RILEY Albuterol 2.5 mg 01/09/22 14:25 Albuterol 2.5 Mg/3 Ml Nebu IH Q4HRT PRN Shortness Of Breath Lipase/Protease/Amylase 1 each 01/18/22 07:11 Lipase 10,500/Protease 25,000/Amylase 43,750 (Units) Dr Gant FEEDTUBE PRN PRN For Clogged Feeding Tube Ascorbic Acid 500 mg 01/09/22 22:00 01/18/22 21:20 Ascorbic Acid 500 Mg Tab PO 500 mg BID JARROD Administration Carvedilol 3.125 mg 01/12/22 12:00 01/18/22 21:20 Carvedilol 3.125 Mg Tab PO 3.125 mg BID JARROD Administration Cholecalciferol 1,000 unit 01/10/22 10:00 01/18/22 09:24 Cholecalciferol (Vit D3) 1000 Unit (25 Mcg) Tab PO 1,000 unit DAILY JARROD Administration Dextrose 0 ml 01/09/22 14:48 Dextrose 10% *Hypoglycemia IV PRN PRN Hypoglycemia Heparin Sodium (Porcine) 5,000 unit 01/09/22 22:00 01/18/22 21:20 Heparin 5,000 Unit/1 Ml Vial SUB-Q 5,000 unit Q12HR JARROD Administration Hydralazine HCl 10 mg 01/12/22 11:21 Hydralazine 20 Mg/1 Ml Inj IV Q4HR PRN Hypertension Hydromorphone HCl 0.25 mg 01/09/22 15:00 Hydromorphone 1 Mg/1 Ml Inj IV Q4H PRN Pain, Moderate (4-6) Hydromorphone HCl 0.5 mg 01/09/22 15:00 Hydromorphone 1 Mg/1 Ml Inj IV Q23H PRN Pain , Severe (7-10) Dextrose 1,000 mls @ 125 mls/hr 01/12/22 15:00 01/19/22 00:57 D5w IV 125 mls/hr DIRECT JARROD Administration Sodium Chloride 100 mls @ 999 mls/hr 01/15/22 09:08 Nacl 0.9% IV MYRNA PRN Hypotension Insulin Human Regular 0 units 01/15/22 18:00 01/19/22 05:28 Insulin Regular, Human 100 Units/1 Ml SUB-Q Not Given Q6H JARROD Protocol Losartan Potassium 50 mg 01/18/22 10:00 01/18/22 09:24 Losartan 50 Mg Tab PO 50 mg QDAY JARROD Administration Methylprednisolone Sodium Succinate 40 mg 01/12/22 10:00 02/25/22 09:24 Methylprednisolone Sod Succinate 40 Mg/1 Ml Inj IV 40 mg QDAY JARROD Administration Nifedipine 30 mg 01/18/22 10:00 01/18/22 09:24 Nifedipine Xl 30 Mg Tab PO 30 mg QDAY JARROD Administration Ondansetron HCl 4 mg 01/09/22 16:00 Ondansetron 4 Mg/2 Ml Inj IV Q8H PRN Nausea And Vomiting Oxycodone/Acetaminophen 1 tab 01/09/22 15:00 01/16/22 08:55 Oxycodone /Acetaminophen 5-325mg Tab PO 1 tab Q16H PRN Administration Pain, Moderate (4-6) Simple Syrup 15 ml 01/18/22 07:11 Simple Syrup 15 Ml FEEDTUBE PRN PRN Hypoglycemia Simple Syrup 30 ml 01/18/22 07:11 Simple Syrup 15 Ml FEEDTUBE PRN PRN Hypoglycemia Sodium Bicarbonate 325 mg 01/18/22 07:11 Sodium Bicarbonate 325 Mg Tab FEEDTUBE PRN PRN For Clogged Feeding Tube Sodium Chloride 10 ml 01/09/22 22:00 01/18/22 21:20 Sodium Chloride 0.9% 10 Ml Flush Syringe IV 10 ml BID JARROD Administration Sodium Chloride 10 ml 01/09/22 15:00 01/15/22 21:08 Sodium Chloride 0.9% 10 Ml Flush Syringe IV 10 ml PRN PRN Administration LINE FLUSH Zinc Sulfate 220 mg 01/09/22 22:00 01/18/22 21:20 Zinc Sulfate 220 Mg Cap PO 220 mg BID JARROD Administration Nutrition/Malnutrition Assess - Dietary Evaluation Nutrition/Malnutrition Findings: Nutrition Notes Start: 01/10/22 13:52 Freq: Status: Active Protocol: Document 01/18/22 10:33 FLOR (Rec: 01/18/22 10:50 FLOR [id number]) Nutrition Notes Initial or Follow up Reassessment Current Diagnosis Acute Kidney Injury,Decubitus( Pressure Ulcer),Sepsis, Respiratory Failure, Malnutrition Other Pertinent Diagnosis COVID-19/Pneumonia, Metabolic Acidosis, KELSIE/ATN, Dysphagia, Dementia... Current Diet TF-Nepro w/CARBSTEADY @ 30 ml/ hr (since L 01/18). Labs/Tests 01/17: CO2 20, BUN 97, Crea 2. 8, Glu 106. Pertinent Medications 01/18: Vit C, Vit D3, Dw5 1000 ml @ 125 ml/hr, ZnSO4, others nutritionally unremarkable. Height 5 ft 4 in Weight 48 kg [place] Body Weight (kg) 54.54 BMI 18.1 Weight change and time frame No body weight change reported in 9 days. Weight Status Underweight Subjective/Other Information RD consult for write/manage TF . Pt underwent procedure 01/17: Pemacath placement, well tolerated. TF resumed as previously prescribed. Pt medically cleared for Discharge. Percent of energy/protein needs met: Prescribed TF-Nepro w/ CARBSTEADY @ 30 ml/hr provides for energy/protein needs (1, 296 Kcal/58 g) during LOS, 77% Kcal; 100% AA. Burn Absent Trauma Absent GI Symptoms None Difficulty In Swallowing Food Allergy No Skin Integrity/Comment Sacral Decubitus Current % PO Other Minimum of two criteria Yes Energy Intake (severe) < or equal to 50% Estimated Energy Requirement > or equal to 5 days Body Fat Depletion Moderate depletion (severe) Protein-Calorie Malnutrition Severe #1 Nutrition Diagnosis Underweight Diagnosis Progress(for reassessment Continues documentation) Is patient on ventilator? No Is Patient Ambulatory and/or Out of Bed No REE-([facility]-confined to bed) 1223.568 Kcal/Kg value to use for calculation 35 Approximate Energy Requirements Using 1680 kcal/Kg Calculation Used for Recommendations Kcal/kg Additional Notes Protein: 1.2-1.5 g/Kg; 58-72 g /day. Fluids: 1 ml/Kcal, or as per MD. Nutrition Intervention Nutrition Support: Resume TF-Nepro w/CARBSTEADY @ 30 ml/hr. Flush: 130 ml water Q 4 hr, or as per MD. Kcal 1,296 Protein (gm) 58 Carbohydrates (gm) 116 Fat (gm) 69 Fluid (mL) 523 Fiber (gm) 9 % RDI: 77% Kcal; 100% AA. Goal #1 Provide at least 75% of energy /protein needs through Enteral Feeding during LOS. Goal #2 Maintain body weight within +/ -3% of admission body weight during LOS. Follow-Up By: 01/25/22 Additional Comments Continue monitoring TF tolerance and BM.
[2022-01-19] MEDS: HEPARIN 5,000 UNIT/1 ML VIAL SUB-Q SCH ×2 (09:00→21:38)
[2022-01-19] MEDS: methylPREDNISolone Sod Succinate 40 MG/1 ML INJ IV SCH (09:01)
[2022-01-19] MEDS: ASCORBIC ACID 500 MG TAB PO SCH ×2 (09:01→21:40)
[2022-01-19] MEDS: ZINC SULFATE 220 MG CAP PO SCH ×2 (09:01→21:40)
[2022-01-19] MEDS: CHOLECALCIFEROL (VIT D3) 1000 UNIT (25 mcg) TAB PO SCH (09:01)
[2022-01-19] MEDS: carvediloL 3.125 MG TAB PO SCH ×2 (09:07→21:38)
[2022-01-19] MEDS: NIFEdipine XL 30 MG TAB PO SCH (09:07)
[2022-01-19] MEDS: LOSARTAN 50 MG TAB PO SCH (09:07)
[2022-01-19] MEDS: amLODIPine 10 MG TAB PO SCH (11:40)
--- NOTE | 2022-01-19 16:02 | Progress Note ---
Assessment and Plan Impression: * Acute kidney injury secondary to COVID related ATN * Azotemia secondary to multifactorial etiologies: KELSIE vs steroids * Hypernatremia * Acute hypoxic respiratory failure secondary to COVID 19 PNA * COVID 19 infection Plan: * S/p HD #1 01/15, HD#2 01/17 * HD today- note minimal urine output * No labs for review today * Appreciate permacath placement per vascular * Dr. Hurley updated patient's daughter/NOK/POA 01/13 Ananya Galvan at [phone], daughter consents to dialysis * Continue D5W for hydration, start with no fluid removal with HD and adjust moving forward * Steroids per primary team * Management of COVID 19 per primary team * Avoid potential nephrotoxins * Dose medications for renal function * Outpatient HD unit placement pending, likely [facility] Subjective Date of service: 01/19/22 Interval history: No acute events noted, patient resting in bed. Chart/vitals/labs reviewed in detail Objective - Exam Narrative Exam: Patient not directly examined today due to COVID-19 pandemic and need to limit PPE overuse) - Vital Signs Vital signs: Vital Signs - 12hr 01/19/22 01/19/22 01/19/22 05:09 09:13 10:00 Temperature 98.2 F 97.8 F 97.8 F Pulse Rate 79 86 78 Respiratory 18 16 16 Rate Blood Pressure 156/83 160/70 Blood Pressure 146/90 [Left] O2 Sat by Pulse 100 97 Oximetry O2 Sat by Pulse 99 Oximetry [ Bilateral Throughout] 01/19/22 01/19/22 01/19/22 10:15 10:30 10:45 Temperature Pulse Rate 65 83 88 Respiratory Rate Blood Pressure 157/69 159/84 160/90 Blood Pressure [Left] O2 Sat by Pulse Oximetry O2 Sat by Pulse Oximetry [ Bilateral Throughout] 01/19/22 01/19/22 01/19/22 11:00 11:15 11:30 Temperature Pulse Rate 77 72 83 Respiratory Rate Blood Pressure 157/87 165/82 161/84 Blood Pressure [Left] O2 Sat by Pulse Oximetry O2 Sat by Pulse Oximetry [ Bilateral Throughout] 01/19/22 01/19/22 01/19/22 11:45 12:00 12:15 Temperature 97.8 F Pulse Rate 89 86 88 Respiratory 18 Rate Blood Pressure 156/86 157/67 157/83 Blood Pressure [Left] O2 Sat by Pulse Oximetry O2 Sat by Pulse 99 Oximetry [ Bilateral Throughout] - Lab 01/10/22 06:16 01/17/22 06:15 Most recent lab results Calcium 8.2 mg/dL (8.4-10.2) L 01/17/22 06:15 Phosphorus 4.90 mg/dL (2.5-4.5) H 01/16/22 06:50 Magnesium 1.60 mg/dL (1.7-2.3) L 01/16/22 06:50 Medications & Allergies - Medications Allergies/Adverse Reactions: Allergies No Known Allergies Allergy (Verified 01/09/22 11:43) Home Medications: Home Medications Medication Instructions Recorded Confirmed Last Taken Type amLODIPine 10 mg PO QDAY #30 tablet 03/09/21 01/09/22 Unknown Rx carvediloL [Coreg] 3.125 mg PO BID #60 tablet 03/09/21 01/09/22 Unknown Rx Cholecalciferol Vit D3 [Vitamin D3 1,000 unit PO DAILY #30 tablet 01/16/22 Unknown Rx 1,000 UNIT TAB] Losartan [Cozaar] 50 mg PO QDAY #30 tablet 01/18/22 Unknown Rx NIFEdipine XL [Procardia Xl] 30 mg PO QDAY #30 tablet 01/18/22 Unknown Rx Active Medications: Generic Name Dose Route Start Last Admin Trade Name Freq PRN Reason Stop Dose Admin Acetaminophen 650 mg 01/09/22 15:00 01/09/22 22:12 Acetaminophen 325 Mg Tab PO 650 mg Q4H PRN Administration Pain MILD(1-3)/Fever >100.5/RILEY Albuterol 2.5 mg 01/09/22 14:25 Albuterol 2.5 Mg/3 Ml Nebu IH Q4HRT PRN Shortness Of Breath Amlodipine Besylate 10 mg 01/19/22 12:00 01/19/22 11:40 Amlodipine 10 Mg Tab PO Not Given QDAY JARROD Lipase/Protease/Amylase 1 each 01/18/22 07:11 Lipase 10,500/Protease 25,000/Amylase 43,750 (Units) Dr Gant FEEDTUBE PRN PRN For Clogged Feeding Tube Ascorbic Acid 500 mg 01/09/22 22:00 01/19/22 09:01 Ascorbic Acid 500 Mg Tab PO 500 mg BID JARROD Administration Carvedilol 3.125 mg 01/12/22 12:00 01/19/22 09:07 Carvedilol 3.125 Mg Tab PO Not Given BID [facility] Cholecalciferol 1,000 unit 01/10/22 10:00 01/19/22 09:01 Cholecalciferol (Vit D3) 1000 Unit (25 Mcg) Tab PO 1,000 unit DAILY JARROD Administration Dextrose 0 ml 01/09/22 14:48 Dextrose 10% *Hypoglycemia IV PRN PRN Hypoglycemia Heparin Sodium (Porcine) 5,000 unit 01/09/22 22:00 01/19/22 09:00 Heparin 5,000 Unit/1 Ml Vial SUB-Q 5,000 unit Q12HR JARROD Administration Hydralazine HCl 10 mg 01/12/22 11:21 Hydralazine 20 Mg/1 Ml Inj IV Q4HR PRN Hypertension Hydromorphone HCl 0.25 mg 01/09/22 15:00 Hydromorphone 1 Mg/1 Ml Inj IV Q4H PRN Pain, Moderate (4-6) Hydromorphone HCl 0.5 mg 01/09/22 15:00 Hydromorphone 1 Mg/1 Ml Inj IV Q23H PRN Pain , Severe (7-10) Dextrose 1,000 mls @ 125 mls/hr 01/12/22 15:00 01/19/22 08:49 D5w IV 125 mls/hr DIRECT JARROD Administration Sodium Chloride 100 mls @ 999 mls/hr 01/15/22 09:08 Nacl 0.9% IV MYRNA PRN Hypotension Insulin Human Regular 0 units 01/15/22 18:00 01/19/22 11:42 Insulin Regular, Human 100 Units/1 Ml SUB-Q Not Given Q6H [facility] Protocol Losartan Potassium 50 mg 01/18/22 10:00 01/19/22 09:07 Losartan 50 Mg Tab PO Not Given QDAY [facility] Methylprednisolone Sodium Succinate 40 mg 01/12/22 10:00 01/19/22 09:01 Methylprednisolone Sod Succinate 40 Mg/1 Ml Inj IV 40 mg QDAY JARROD Administration Ondansetron HCl 4 mg 01/09/22 16:00 Ondansetron 4 Mg/2 Ml Inj IV Q8H PRN Nausea And Vomiting Oxycodone/Acetaminophen 1 tab 01/09/22 15:00 01/16/22 08:55 Oxycodone /Acetaminophen 5-325mg Tab PO 1 tab Q16H PRN Administration Pain, Moderate (4-6) Simple Syrup 15 ml 01/18/22 07:11 Simple Syrup 15 Ml FEEDTUBE PRN PRN Hypoglycemia Simple Syrup 30 ml 01/18/22 07:11 Simple Syrup 15 Ml FEEDTUBE PRN PRN Hypoglycemia Sodium Bicarbonate 325 mg 01/18/22 07:11 Sodium Bicarbonate 325 Mg Tab FEEDTUBE PRN PRN For Clogged Feeding Tube Sodium Chloride 10 ml 01/09/22 22:00 01/19/22 09:02 Sodium Chloride 0.9% 10 Ml Flush Syringe IV 10 ml BID JARROD Administration Sodium Chloride 10 ml 01/09/22 15:00 01/15/22 21:08 Sodium Chloride 0.9% 10 Ml Flush Syringe IV 10 ml PRN PRN Administration LINE FLUSH Zinc Sulfate 220 mg 01/09/22 22:00 01/19/22 09:01 Zinc Sulfate 220 Mg Cap PO 220 mg BID JARROD Administration
[2022-01-20] MEDS: FREE WATER PO SCH ×6 (00:11→21:08)
[2022-01-20] MEDS: INSULIN REGULAR, HUMAN 100 UNITS/1 ML SUB-Q SCH ×4 (00:24→18:34)
--- NOTE | 2022-01-20 08:44 | Progress Note ---
Assessment and Plan Assessment and plan: #Sepsis -resolved #COVID-19 infectionresolved #COVID-19 pneumoniaresolved -Blood cultures NGTD x5 daysfinal; UCx negative -continue doxycycline and rocephin -continue steroids; vitamins for COVID infection not a candidate for remdesivir due to kidney function -ID following, assistance appreciated #Acute respiratory failure with hypoxia-resolved -likely secondary to COVID PNA as opposed to bacterial pneumonia -Currently on room air -continuous pulse ox -continue steroids day 7of 10 #Acute metabolic encephalopathy-resolved #hx of Vascular dementia #Cerebral atherosclerosis -multifactorial; acute change likely secondary to infection -will continue to monitor #Newly declared ESRD -SCr 2.6 today -Renal US showed medical renal disease -avoid nephrotoxins and will renally dose medications -Nephrology following, assistance appreciated -Initiated hemodialysis on 01/15/2022. Status post triple-lumen HD catheter replacement with permacath by vascular surgery. -Pending HD chair at [facility] #Metabolic acidosis-resolved -secondary to renal failure #Dysphagiaresolved -Currently with PEG tube -continue tube feeds -Nutrition consult #Severe protein-calorie malnutrition -albumin 2.0 -continue TF, Nutrition managing #Sacral decubitus ulcer -Continue wound care #Discharge planning - Patient is pending HD chair. Patient is medically ready for discharge. - Case management has been made aware. - Patient to return to [facility] once medically stable Disposition Plan: Patient is medically cleared for discharge. Pending HD chair. Total Time Spent with Patient (Minutes): 15 min History Interval history: No acute events overnight. Hospitalist Physical - Constitutional Vitals: Temp Pulse Resp BP Pulse Ox 99.2 F 93 H 18 146/83 98 01/20/22 04:18 01/20/22 04:18 01/20/22 04:18 01/20/22 04:18 01/20/22 04:18 General appearance: Present: no acute distress, cachectic - EENT Eyes: Present: PERRL, EOM intact ENT: hearing intact, clear oral mucosa, edentulous - Neck Neck: Present: supple, normal ROM, other (Permacath in left upper chest) - Respiratory Respiratory effort: normal Respiratory: bilateral: diminished - Cardiovascular Rhythm: regular Heart Sounds: Present: S1 & S2 - Extremities Extremities: no ischemia, pulses intact, pulses symmetrical, No edema, normal temperature, normal color Peripheral Pulses: within normal limits - Abdominal General gastrointestinal: soft, non-tender, non-distended, normal bowel sounds, other (PEG tube in place) - Integumentary Integumentary: Present: clear, warm, dry - Psychiatric Psychiatric: appropriate mood/affect - Neurologic Neurologic: CNII-XII intact - Allied Health Allied health notes reviewed: nursing HEART Score - HEART Score Troponin: Troponin T 0.064 ng/mL (0.00-0.029) H 01/12/22 02:03 Results - Labs CBC & Chem 7: 01/10/22 06:16 01/17/22 06:15 Labs: Laboratory Last Values WBC 6.3 K/mm3 (4.5-11.0) 01/10/22 06:16 RBC 2.92 M/mm3 (3.65-5.03) L 01/10/22 06:16 Hgb 7.9 gm/dl (10.1-14.3) L 01/10/22 06:16 Hct 25.9 % (30.3-42.9) L 01/10/22 06:16 MCV 89 fl (79-97) 01/10/22 06:16 MCH 27 pg (28-32) L 01/10/22 06:16 MCHC 31 % (30-34) 01/10/22 06:16 RDW 16.8 % (13.2-15.2) H 01/10/22 06:16 Plt Count 162 K/mm3 (140-440) 01/10/22 06:16 Lymph % (Auto) Paraplanner 01/10/22 06:16 Power % (Auto) Paraplanner 01/10/22 06:16 Eos % (Auto) Paraplanner 01/10/22 06:16 Baso % (Auto) Paraplanner 01/10/22 06:16 Lymph # (Auto) Paraplanner 01/10/22 06:16 Power # (Auto) Paraplanner 01/10/22 06:16 Eos # (Auto) Paraplanner 01/10/22 06:16 Baso # (Auto) Paraplanner 01/10/22 06:16 Add Manual Diff Complete 01/10/22 06:16 Total Counted 100 01/10/22 06:16 Seg Neutrophils % Paraplanner 01/10/22 06:16 Seg Neuts % (Manual) 59.0 % (40.0-70.0) 01/10/22 06:16 Band Neutrophils % 13.0 % 01/10/22 06:16 Lymphocytes % (Manual) 8.0 % (13.4-35.0) L 01/10/22 06:16 Reactive Lymphs % (Man) 0 % 01/10/22 06:16 Monocytes % (Manual) 0 % (0.0-7.3) 01/10/22 06:16 Eosinophils % (Manual) 0 % (0.0-4.3) 01/10/22 06:16 Basophils % (Manual) 0 % (0.0-1.8) 01/10/22 06:16 Metamyelocytes % 8.0 % 01/10/22 06:16 Myelocytes % 12.0 % 01/10/22 06:16 Promyelocytes % 0 % 01/10/22 06:16 Blast Cells % 0 % 01/10/22 06:16 Nucleated RBC % Not Reportable 01/10/22 06:16 Seg Neutrophils # Paraplanner 01/10/22 06:16 Seg Neutrophils # Man 3.7 K/mm3 (1.8-7.7) 01/10/22 06:16 Band Neutrophils # 0.8 K/mm3 01/10/22 06:16 Lymphocytes # (Manual) 0.5 K/mm3 (1.2-5.4) L 01/10/22 06:16 Abs React Lymphs (Man) 0.0 K/mm3 01/10/22 06:16 Monocytes # (Manual) 0.0 K/mm3 (0.0-0.8) 01/10/22 06:16 Eosinophils # (Manual) 0.0 K/mm3 (0.0-0.4) 01/10/22 06:16 Basophils # (Manual) 0.0 K/mm3 (0.0-0.1) 01/10/22 06:16 Metamyelocytes # 0.5 K/mm3 01/10/22 06:16 Myelocytes # 0.8 K/mm3 01/10/22 06:16 Promyelocytes # 0.0 K/mm3 01/10/22 06:16 Blast Cells # 0.0 K/mm3 01/10/22 06:16 WBC Morphology Not Reportable 01/10/22 06:16 Hypersegmented Neuts Not Reportable 01/10/22 06:16 Hyposegmented Neuts Not Reportable 01/10/22 06:16 Hypogranular Neuts Not Reportable 01/10/22 06:16 Smudge Cells Not Reportable 01/10/22 06:16 Toxic Granulation Not Reportable 01/10/22 06:16 Toxic Vacuolation Not Reportable 01/10/22 06:16 Dohle Bodies Not Reportable 01/10/22 06:16 Pelger-Huet Anomaly Not Reportable 01/10/22 06:16 Lesley Rods Not Reportable 01/10/22 06:16 Platelet Estimate Consistent w auto 01/10/22 06:16 Clumped Platelets Not Reportable 01/10/22 06:16 Plt Clumps, EDTA Not Reportable 01/10/22 06:16 Large Platelets Not Reportable 01/10/22 06:16 Giant Platelets Not Reportable 01/10/22 06:16 Platelet Satelliting Not Reportable 01/10/22 06:16 Plt Morphology Comment Not Reportable 01/10/22 06:16 RBC Morphology Not Reportable 01/10/22 06:16 Dimorphic RBCs Not Reportable 01/10/22 06:16 Polychromasia Few 01/10/22 06:16 Hypochromasia Not Reportable 01/10/22 06:16 Poikilocytosis Not Reportable 01/10/22 06:16 Anisocytosis Not Reportable 01/10/22 06:16 Microcytosis Not Reportable 01/10/22 06:16 Macrocytosis Not Reportable 01/10/22 06:16 Spherocytes Not Reportable 01/10/22 06:16 Pappenheimer Bodies Not Reportable 01/10/22 06:16 Sickle Cells Not Reportable 01/10/22 06:16 Target Cells Not Reportable 01/10/22 06:16 Tear Drop Cells Not Reportable 01/10/22 06:16 Ovalocytes Not Reportable 01/10/22 06:16 Helmet Cells Not Reportable 01/10/22 06:16 [place] Bodies Not Reportable 01/10/22 06:16 [place] Rings Not Reportable 01/10/22 06:16 [place] Cells Not Reportable 01/10/22 06:16 Bite Cells Not Reportable 01/10/22 06:16 Crenated Cell Not Reportable 01/10/22 06:16 Elliptocytes Not Reportable 01/10/22 06:16 Acanthocytes (Spur) Not Reportable 01/10/22 06:16 Rouleaux Not Reportable 01/10/22 06:16 Hemoglobin C Crystals Not Reportable 01/10/22 06:16 Schistocytes Not Reportable 01/10/22 06:16 Malaria parasites Not Reportable 01/10/22 06:16 Artemio Bodies Not Reportable 01/10/22 06:16 Hem Pathologist Commnt No 01/10/22 06:16 APTT 29.2 Sec. (24.2-36.6) 01/09/22 12:50 D-Dimer 4886.79 ng/mlDDU (0-234) H 01/11/22 07:58 Sodium 139 mmol/L (137-145) 01/17/22 06:15 Potassium 4.5 mmol/L (3.6-5.0) D 01/17/22 06:15 Chloride 105.3 mmol/L (98-107) 01/17/22 06:15 Carbon Dioxide 20 mmol/L (22-30) L 01/17/22 06:15 Anion Gap 18 mmol/L 01/17/22 06:15 BUN 97 mg/dL (7-17) H 01/17/22 06:15 Creatinine 2.8 mg/dL (0.6-1.2) H 01/17/22 06:15 Estimated GFR 21 ml/min 01/17/22 06:15 BUN/Creatinine Ratio 35 % 01/17/22 06:15 Glucose 106 mg/dL (65-100) H 01/17/22 06:15 POC Glucose 100 mg/dL (70-105) 01/20/22 06:48 Lactic Acid 1.40 mmol/L (0.7-2.0) 01/09/22 12:50 Calcium 8.2 mg/dL (8.4-10.2) L 01/17/22 06:15 Phosphorus 4.90 mg/dL (2.5-4.5) H 01/16/22 06:50 Magnesium 1.60 mg/dL (1.7-2.3) L 01/16/22 06:50 Ferritin 2182.0 ng/mL (10.0-200.0) H 01/11/22 07:58 Total Bilirubin 0.20 mg/dL (0.1-1.2) 01/09/22 12:50 Direct Bilirubin < 0.2 mg/dL (0-0.2) 01/09/22 12:50 Indirect Bilirubin 0.0 mg/dL 01/09/22 12:50 AST 75 units/L (5-40) H 01/09/22 12:50 ALT 31 units/L (7-56) 01/09/22 12:50 Alkaline Phosphatase 69 units/L (35-129) 01/09/22 12:50 Lactate Dehydrogenase 332 units/L (91-180) H 01/11/22 07:58 Troponin T 0.064 ng/mL (0.00-0.029) H 01/12/22 02:03 C-Reactive Protein 30.40 mg/dL (0.00-1.30) H 01/11/22 07:58 NT-Pro-B Natriuret Pep 608.7 pg/mL (0-900) 01/09/22 12:50 Total Protein 7.9 g/dL (6.3-8.2) 01/09/22 12:50 Albumin 2.0 g/dL (3.9-5) L 01/09/22 12:50 Albumin/Globulin Ratio 0.3 % 01/09/22 12:50 Triglycerides 442 mg/dL (2-149) H 01/12/22 02:03 Cholesterol 132 mg/dL (50-199) 01/12/22 02:03 LDL Cholesterol Direct TNR 01/12/22 02:03 HDL Cholesterol 14 mg/dL (40-59) L 01/12/22 02:03 Cholesterol/HDL Ratio 9.42 % 01/12/22 02:03 Procalcitonin > 200.00 ng/mL (<0.15) 01/11/22 07:58 Urine Color Yellow (Yellow) 01/09/22 13:52 Urine Turbidity Hazy (Clear) 01/09/22 13:52 Urine pH 6.0 (5.0-7.0) 01/09/22 13:52 Ur Specific [place] 1.020 (1.003-1.030) 01/09/22 13:52 Urine Protein 100 mg/dl mg/dL (Negative) 01/09/22 13:52 Urine Glucose (UA) Neg mg/dL (Negative) 01/09/22 13:52 Urine Ketones Neg mg/dL (Negative) 01/09/22 13:52 Urine Blood Neg (Negative) 01/09/22 13:52 Urine Nitrite Neg (Negative) 01/09/22 13:52 Urine Bilirubin Neg (Negative) 01/09/22 13:52 Urine Urobilinogen < 2.0 mg/dL (<2.0) 01/09/22 13:52 Ur Leukocyte Esterase Neg (Negative) 01/09/22 13:52 Urine WBC (Auto) 4.0 /HPF (0.0-6.0) 01/09/22 13:52 Urine RBC (Auto) 3.0 /HPF (0.0-6.0) 01/09/22 13:52 U Epithel Cells (Auto) 2.0 /HPF (0-13.0) 01/09/22 13:52 Urine Bacteria (Auto) 1+ /HPF (Negative) 01/09/22 13:52 Urine Mucus Few /HPF 01/09/22 13:52 C. difficile Tox (PCR) Negative (Negative) 01/16/22 10:30 Coronavirus (PCR) Negative (Negative) 01/16/22 Unknown Hepatitis A IgM Ab Non-reactive (NonReactive) 01/14/22 Unknown Hep Bs Antigen Non-reactive (Negative) 01/14/22 Unknown Hep B Core IgM Ab Non-reactive (NonReactive) 01/14/22 Unknown Hepatitis C Antibody Non-reactive (NonReactive) 01/14/22 Unknown Blood Type B POSITIVE 01/09/22 14:37 Antibody Screen Negative 01/09/22 14:37 Samuel/IV: Voiding Method Incontinent Active Medications - Current Medications Current Medications: Generic Name Dose Route Start Last Admin Trade Name Freq PRN Reason Stop Dose Admin Acetaminophen 650 mg 01/09/22 15:00 01/09/22 22:12 Acetaminophen 325 Mg Tab PO 650 mg Q4H PRN Administration Pain MILD(1-3)/Fever >100.5/RILEY Albuterol 2.5 mg 01/09/22 14:25 Albuterol 2.5 Mg/3 Ml Nebu IH Q4HRT PRN Shortness Of Breath Amlodipine Besylate 10 mg 01/19/22 12:00 01/19/22 11:40 Amlodipine 10 Mg Tab PO Not Given QDAY JARROD Lipase/Protease/Amylase 1 each 01/18/22 07:11 Lipase 10,500/Protease 25,000/Amylase 43,750 (Units) Dr Stalin VALLEUBE PRN PRN For Clogged Feeding Tube Ascorbic Acid 500 mg 01/09/22 22:00 01/19/22 21:40 Ascorbic Acid 500 Mg Tab PO 500 mg BID JARROD Administration Carvedilol 3.125 mg 01/12/22 12:00 01/19/22 21:38 Carvedilol 3.125 Mg Tab PO 3.125 mg BID JARROD Administration Cholecalciferol 1,000 unit 01/10/22 10:00 01/19/22 09:01 Cholecalciferol (Vit D3) 1000 Unit (25 Mcg) Tab PO 1,000 unit DAILY JARROD Administration Dextrose 0 ml 01/09/22 14:48 Dextrose 10% *Hypoglycemia IV PRN PRN Hypoglycemia Heparin Sodium (Porcine) 5,000 unit 01/09/22 22:00 01/19/22 21:38 Heparin 5,000 Unit/1 Ml Vial SUB-Q 5,000 unit Q12HR JARROD Administration Hydralazine HCl 10 mg 01/12/22 11:21 Hydralazine 20 Mg/1 Ml Inj IV Q4HR PRN Hypertension Hydromorphone HCl 0.25 mg 01/09/22 15:00 Hydromorphone 1 Mg/1 Ml Inj IV Q4H PRN Pain, Moderate (4-6) Hydromorphone HCl 0.5 mg 01/09/22 15:00 Hydromorphone 1 Mg/1 Ml Inj IV Q23H PRN Pain , Severe (7-10) Dextrose 1,000 mls @ 125 mls/hr 01/12/22 15:00 01/19/22 21:33 D5w IV 125 mls/hr DIRECT JARROD Administration Sodium Chloride 100 mls @ 999 mls/hr 01/15/22 09:08 Nacl 0.9% IV MYRNA PRN Hypotension Insulin Human Regular 0 units 01/15/22 18:00 01/20/22 06:49 Insulin Regular, Human 100 Units/1 Ml SUB-Q Not Given Q6H [facility] Protocol Losartan Potassium 50 mg 01/18/22 10:00 01/19/22 09:07 Losartan 50 Mg Tab PO Not Given QDAY [facility] Methylprednisolone Sodium Succinate 40 mg 01/12/22 10:00 01/19/22 09:01 Methylprednisolone Sod Succinate 40 Mg/1 Ml Inj IV 40 mg QDAY JARROD Administration Ondansetron HCl 4 mg 01/09/22 16:00 Ondansetron 4 Mg/2 Ml Inj IV Q8H PRN Nausea And Vomiting Oxycodone/Acetaminophen 1 tab 01/09/22 15:00 01/16/22 08:55 Oxycodone /Acetaminophen 5-325mg Tab PO 1 tab Q16H PRN Administration Pain, Moderate (4-6) Simple Syrup 15 ml 01/18/22 07:11 Simple Syrup 15 Ml FEEDTUBE PRN PRN Hypoglycemia Simple Syrup 30 ml 01/18/22 07:11 Simple Syrup 15 Ml FEEDTUBE PRN PRN Hypoglycemia Sodium Bicarbonate 325 mg 01/18/22 07:11 Sodium Bicarbonate 325 Mg Tab FEEDTUBE PRN PRN For Clogged Feeding Tube Sodium Chloride 10 ml 01/09/22 22:00 01/19/22 21:39 Sodium Chloride 0.9% 10 Ml Flush Syringe IV 10 ml BID JARROD Administration Sodium Chloride 10 ml 01/09/22 15:00 01/15/22 21:08 Sodium Chloride 0.9% 10 Ml Flush Syringe IV 10 ml PRN PRN Administration LINE FLUSH Zinc Sulfate 220 mg 01/09/22 22:00 01/19/22 21:40 Zinc Sulfate 220 Mg Cap PO 220 mg BID JARROD Administration Nutrition/Malnutrition Assess - Dietary Evaluation Nutrition/Malnutrition Findings: Nutrition Notes Start: 01/10/22 13:52 Freq: Status: Active Protocol: Document 01/18/22 10:33 FLOR (Rec: 01/18/22 10:50 FLOR [email or web address]) Nutrition Notes Initial or Follow up Reassessment Current Diagnosis Acute Kidney Injury,Decubitus( Pressure Ulcer),Sepsis, Respiratory Failure, Malnutrition Other Pertinent Diagnosis COVID-19/Pneumonia, Metabolic Acidosis, KELSIE/ATN, Dysphagia, Dementia... Current Diet TF-Nepro w/CARBSTEADY @ 30 ml/ hr (since L 01/18). Labs/Tests 01/17: CO2 20, BUN 97, Crea 2. 8, Glu 106. Pertinent Medications 01/18: Vit C, Vit D3, Dw5 1000 ml @ 125 ml/hr, ZnSO4, others nutritionally unremarkable. Height 5 ft 4 in Weight 48 kg [place] Body Weight (kg) 54.54 BMI 18.1 Weight change and time frame No body weight change reported in 9 days. Weight Status Underweight Subjective/Other Information RD consult for write/manage TF . Pt underwent procedure 01/17: Pemacath placement, well tolerated. TF resumed as previously prescribed. Pt medically cleared for Discharge. Percent of energy/protein needs met: Prescribed TF-Nepro w/ CARBSTEADY @ 30 ml/hr provides for energy/protein needs (1, 296 Kcal/58 g) during LOS, 77% Kcal; 100% AA. Burn Absent Trauma Absent GI Symptoms None Difficulty In Swallowing Food Allergy No Skin Integrity/Comment Sacral Decubitus Current % PO Other Minimum of two criteria Yes Energy Intake (severe) < or equal to 50% Estimated Energy Requirement > or equal to 5 days Body Fat Depletion Moderate depletion (severe) Protein-Calorie Malnutrition Severe #1 Nutrition Diagnosis Underweight Diagnosis Progress(for reassessment Continues documentation) Is patient on ventilator? No Is Patient Ambulatory and/or Out of Bed No REE-([facility]-confined to bed) 1223.568 Kcal/Kg value to use for calculation 35 Approximate Energy Requirements Using 1680 kcal/Kg Calculation Used for Recommendations Kcal/kg Additional Notes Protein: 1.2-1.5 g/Kg; 58-72 g /day. Fluids: 1 ml/Kcal, or as per MD. Nutrition Intervention Nutrition Support: Resume TF-Nepro w/CARBSTEADY @ 30 ml/hr. Flush: 130 ml water Q 4 hr, or as per MD. Kcal 1,296 Protein (gm) 58 Carbohydrates (gm) 116 Fat (gm) 69 Fluid (mL) 523 Fiber (gm) 9 % RDI: 77% Kcal; 100% AA. Goal #1 Provide at least 75% of energy /protein needs through Enteral Feeding during LOS. Goal #2 Maintain body weight within +/ -3% of admission body weight during LOS. Follow-Up By: 01/25/22 Additional Comments Continue monitoring TF tolerance and BM.
--- NOTE | 2022-01-20 08:50 | Progress Note ---
Assessment and Plan Impression: * Acute kidney injury secondary to COVID related ATN * Azotemia secondary to multifactorial etiologies: KELSIE vs steroids * Hypernatremia * Acute hypoxic respiratory failure secondary to COVID 19 PNA * COVID 19 infection Plan: * S/p HD 01/19, plan to continue HD // * No signs of renal recovery * No labs for review today * Appreciate permacath placement per vascular * Dr. Hurley updated patient's daughter/NOK/POA 01/13 Ananya Galvan at [phone], daughter consents to dialysis * On D5W for hydration, now also on free water with TFs * Steroids per primary team * Management of COVID 19 per primary team * Avoid potential nephrotoxins * Dose medications for renal function * Outpatient HD unit placement pending, likely [facility] Subjective Date of service: 01/20/22 Interval history: No acute events noted, patient resting in bed. Chart/vitals/labs reviewed in detail Objective - Exam Narrative Exam: General appearance: frail EENT: ATNC, mucous membranes dry Respiratory: Present: Clear to Auscultation Cardiology: regular, S1S2 Gastrointestinal: normal, no tenderness, no distended Neurologic: other (awake, tracks) - Vital Signs Vital signs: Vital Signs - 12hr 01/19/22 01/19/22 01/20/22 21:38 22:00 04:18 Temperature 99.2 F Pulse Rate 91 H 93 H Respiratory 18 18 Rate Blood Pressure 137/77 146/83 O2 Sat by Pulse 99 98 Oximetry - Lab 01/10/22 06:16 01/17/22 06:15 Most recent lab results Calcium 8.2 mg/dL (8.4-10.2) L 01/17/22 06:15 Phosphorus 4.90 mg/dL (2.5-4.5) H 01/16/22 06:50 Magnesium 1.60 mg/dL (1.7-2.3) L 01/16/22 06:50 Medications & Allergies - Medications Allergies/Adverse Reactions: Allergies No Known Allergies Allergy (Verified 01/09/22 11:43) Home Medications: Home Medications Medication Instructions Recorded Confirmed Last Taken Type amLODIPine 10 mg PO QDAY #30 tablet 03/09/21 01/09/22 Unknown Rx carvediloL [Coreg] 3.125 mg PO BID #60 tablet 03/09/21 01/09/22 Unknown Rx Cholecalciferol Vit D3 [Vitamin D3 1,000 unit PO DAILY #30 tablet 01/16/22 Unknown Rx 1,000 UNIT TAB] Losartan [Cozaar] 50 mg PO QDAY #30 tablet 01/18/22 Unknown Rx NIFEdipine XL [Procardia Xl] 30 mg PO QDAY #30 tablet 01/18/22 Unknown Rx Active Medications: Generic Name Dose Route Start Last Admin Trade Name Freq PRN Reason Stop Dose Admin Acetaminophen 650 mg 01/09/22 15:00 01/09/22 22:12 Acetaminophen 325 Mg Tab PO 650 mg Q4H PRN Administration Pain MILD(1-3)/Fever >100.5/RILEY Albuterol 2.5 mg 01/09/22 14:25 Albuterol 2.5 Mg/3 Ml Nebu IH Q4HRT PRN Shortness Of Breath Amlodipine Besylate 10 mg 01/19/22 12:00 01/19/22 11:40 Amlodipine 10 Mg Tab PO Not Given QDAY JARROD Lipase/Protease/Amylase 1 each 01/18/22 07:11 Lipase 10,500/Protease 25,000/Amylase 43,750 (Units) Dr Gant FEEDTUBE PRN PRN For Clogged Feeding Tube Ascorbic Acid 500 mg 01/09/22 22:00 01/19/22 21:40 Ascorbic Acid 500 Mg Tab PO 500 mg BID JARROD Administration Carvedilol 3.125 mg 01/12/22 12:00 01/19/22 21:38 Carvedilol 3.125 Mg Tab PO 3.125 mg BID JARROD Administration Cholecalciferol 1,000 unit 01/10/22 10:00 01/19/22 09:01 Cholecalciferol (Vit D3) 1000 Unit (25 Mcg) Tab PO 1,000 unit DAILY JARROD Administration Dextrose 0 ml 01/09/22 14:48 Dextrose 10% *Hypoglycemia IV PRN PRN Hypoglycemia Heparin Sodium (Porcine) 5,000 unit 01/09/22 22:00 01/19/22 21:38 Heparin 5,000 Unit/1 Ml Vial SUB-Q 5,000 unit Q12HR JARROD Administration Hydralazine HCl 10 mg 01/12/22 11:21 Hydralazine 20 Mg/1 Ml Inj IV Q4HR PRN Hypertension Hydromorphone HCl 0.25 mg 01/09/22 15:00 Hydromorphone 1 Mg/1 Ml Inj IV Q4H PRN Pain, Moderate (4-6) Hydromorphone HCl 0.5 mg 01/09/22 15:00 Hydromorphone 1 Mg/1 Ml Inj IV Q23H PRN Pain , Severe (7-10) Dextrose 1,000 mls @ 125 mls/hr 01/12/22 15:00 01/19/22 21:33 D5w IV 125 mls/hr DIRECT JARROD Administration Sodium Chloride 100 mls @ 999 mls/hr 01/15/22 09:08 Nacl 0.9% IV MYRNA PRN Hypotension Insulin Human Regular 0 units 01/15/22 18:00 01/20/22 06:49 Insulin Regular, Human 100 Units/1 Ml SUB-Q Not Given Q6H [facility] Protocol Losartan Potassium 50 mg 01/18/22 10:00 01/19/22 09:07 Losartan 50 Mg Tab PO Not Given QDAY [facility] Methylprednisolone Sodium Succinate 40 mg 01/12/22 10:00 01/19/22 09:01 Methylprednisolone Sod Succinate 40 Mg/1 Ml Inj IV 40 mg QDAY [facility] Administration Ondansetron HCl 4 mg 01/09/22 16:00 Ondansetron 4 Mg/2 Ml Inj IV Q8H PRN Nausea And Vomiting Oxycodone/Acetaminophen 1 tab 01/09/22 15:00 01/16/22 08:55 Oxycodone /Acetaminophen 5-325mg Tab PO 1 tab Q16H PRN Administration Pain, Moderate (4-6) Simple Syrup 15 ml 01/18/22 07:11 Simple Syrup 15 Ml FEEDTUBE PRN PRN Hypoglycemia Simple Syrup 30 ml 01/18/22 07:11 Simple Syrup 15 Ml FEEDTUBE PRN PRN Hypoglycemia Sodium Bicarbonate 325 mg 01/18/22 07:11 Sodium Bicarbonate 325 Mg Tab FEEDTUBE PRN PRN For Clogged Feeding Tube Sodium Chloride 10 ml 01/09/22 22:00 01/19/22 21:39 Sodium Chloride 0.9% 10 Ml Flush Syringe IV 10 ml BID JARROD Administration Sodium Chloride 10 ml 01/09/22 15:00 01/15/22 21:08 Sodium Chloride 0.9% 10 Ml Flush Syringe IV 10 ml PRN PRN Administration LINE FLUSH Zinc Sulfate 220 mg 01/09/22 22:00 01/19/22 21:40 Zinc Sulfate 220 Mg Cap PO 220 mg BID JARROD Administration
[2022-01-20] MEDS: HEPARIN 5,000 UNIT/1 ML VIAL SUB-Q SCH ×2 (09:05→22:07)
[2022-01-20] MEDS: ZINC SULFATE 220 MG CAP PO SCH ×2 (09:05→22:05)
[2022-01-20] MEDS: ASCORBIC ACID 500 MG TAB PO SCH ×2 (09:07→22:05)
[2022-01-20] MEDS: carvediloL 3.125 MG TAB PO SCH ×2 (09:07→22:11)
[2022-01-20] MEDS: methylPREDNISolone Sod Succinate 40 MG/1 ML INJ IV SCH (09:07)
[2022-01-20] MEDS: CHOLECALCIFEROL (VIT D3) 1000 UNIT (25 mcg) TAB PO SCH (09:08)
[2022-01-20] MEDS: LOSARTAN 50 MG TAB PO SCH (09:08)
[2022-01-20] MEDS: amLODIPine 10 MG TAB PO SCH (09:50)
[2022-01-21] MEDS: INSULIN REGULAR, HUMAN 100 UNITS/1 ML SUB-Q SCH ×5 (01:00→23:27)
[2022-01-21] MEDS: FREE WATER PO SCH ×6 (02:52→23:26)
--- NOTE | 2022-01-21 09:01 | Progress Note ---
Subjective Date of service: 01/21/22 Principal diagnosis: kelsie Interval history: Impression: * Acute kidney injury secondary to COVID related ATN * Azotemia secondary to multifactorial etiologies: KELSIE vs steroids * Hypernatremia * Acute hypoxic respiratory failure secondary to COVID 19 PNA * COVID 19 infection Plan: * plan to continue HD // * follow up lytes and crcl for signs of renal recovery * No labs for review today * Appreciate permacath placement per vascular * Dr. Hurley updated patient's daughter/NOK/POA 01/13 Ananya Galvan at [phone], daughter consents to dialysis * On D5W for hydration, now also on free water with TFs * Steroids per primary team * Management of COVID 19 per primary team * Avoid potential nephrotoxins * Dose medications for renal function * Outpatient HD unit placement pending, likely [facility] Subjective Interval history: No acute events noted, patient resting in bed. Chart/vitals/labs reviewed in det ail Objective exam deferred for preservation of PPE Objective - Vital Signs Vital signs: Vital Signs - 12hr 01/20/22 01/20/22 01/20/22 22:00 22:11 22:48 Temperature 98.3 F Pulse Rate 85 85 Respiratory 18 20 Rate Blood Pressure 147/85 147/85 Blood Pressure [Left] O2 Sat by Pulse 99 97 Oximetry 01/21/22 04:09 Temperature 97.9 F Pulse Rate 88 Respiratory 20 Rate Blood Pressure Blood Pressure 140/79 [Left] O2 Sat by Pulse 97 Oximetry - Lab 01/10/22 06:16 01/17/22 06:15 Most recent lab results Calcium 8.2 mg/dL (8.4-10.2) L 01/17/22 06:15 Phosphorus 4.90 mg/dL (2.5-4.5) H 01/16/22 06:50 Magnesium 1.60 mg/dL (1.7-2.3) L 01/16/22 06:50 Medications & Allergies - Medications Allergies/Adverse Reactions: Allergies No Known Allergies Allergy (Verified 01/09/22 11:43) Home Medications: Home Medications Medication Instructions Recorded Confirmed Last Taken Type amLODIPine 10 mg PO QDAY #30 tablet 03/09/21 01/09/22 Unknown Rx carvediloL [Coreg] 3.125 mg PO BID #60 tablet 03/09/21 01/09/22 Unknown Rx Cholecalciferol Vit D3 [Vitamin D3 1,000 unit PO DAILY #30 tablet 01/16/22 Unknown Rx 1,000 UNIT TAB] Losartan [Cozaar] 50 mg PO QDAY #30 tablet 01/18/22 Unknown Rx NIFEdipine XL [Procardia Xl] 30 mg PO QDAY #30 tablet 01/18/22 Unknown Rx Active Medications: Generic Name Dose Route Start Last Admin Trade Name Freq PRN Reason Stop Dose Admin Acetaminophen 650 mg 01/09/22 15:00 01/09/22 22:12 Acetaminophen 325 Mg Tab PO 650 mg Q4H PRN Administration Pain MILD(1-3)/Fever >100.5/RILEY Albuterol 2.5 mg 01/09/22 14:25 Albuterol 2.5 Mg/3 Ml Nebu IH Q4HRT PRN Shortness Of Breath Amlodipine Besylate 10 mg 01/19/22 12:00 01/20/22 09:50 Amlodipine 10 Mg Tab PO 10 mg QDAY JARROD Administration Lipase/Protease/Amylase 1 each 01/18/22 07:11 Lipase 10,500/Protease 25,000/Amylase 43,750 (Units) Dr Stalin CRUZ PRN PRN For Clogged Feeding Tube Ascorbic Acid 500 mg 01/09/22 22:00 01/20/22 22:05 Ascorbic Acid 500 Mg Tab PO 500 mg BID JARROD Administration Carvedilol 3.125 mg 01/12/22 12:00 01/20/22 22:11 Carvedilol 3.125 Mg Tab PO 3.125 mg BID JARROD Administration Cholecalciferol 1,000 unit 01/10/22 10:00 01/20/22 09:08 Cholecalciferol (Vit D3) 1000 Unit (25 Mcg) Tab PO 1,000 unit DAILY JARROD Administration Dextrose 0 ml 01/09/22 14:48 Dextrose 10% *Hypoglycemia IV PRN PRN Hypoglycemia Heparin Sodium (Porcine) 5,000 unit 01/09/22 22:00 01/20/22 22:07 Heparin 5,000 Unit/1 Ml Vial SUB-Q 5,000 unit Q12HR JARROD Administration Hydralazine HCl 10 mg 01/12/22 11:21 Hydralazine 20 Mg/1 Ml Inj IV Q4HR PRN Hypertension Hydromorphone HCl 0.25 mg 01/09/22 15:00 Hydromorphone 1 Mg/1 Ml Inj IV Q4H PRN Pain, Moderate (4-6) Hydromorphone HCl 0.5 mg 01/09/22 15:00 Hydromorphone 1 Mg/1 Ml Inj IV Q23H PRN Pain , Severe (7-10) Sodium Chloride 100 mls @ 999 mls/hr 01/15/22 09:08 Nacl 0.9% IV MYRNA PRN Hypotension Insulin Human Regular 0 units 01/15/22 18:00 01/21/22 06:34 Insulin Regular, Human 100 Units/1 Ml SUB-Q Not Given Q6H [facility] Protocol Losartan Potassium 50 mg 01/18/22 10:00 01/20/22 09:08 Losartan 50 Mg Tab PO 50 mg QDAY JARROD Administration Ondansetron HCl 4 mg 01/09/22 16:00 Ondansetron 4 Mg/2 Ml Inj IV Q8H PRN Nausea And Vomiting Oxycodone/Acetaminophen 1 tab 01/09/22 15:00 01/16/22 08:55 Oxycodone /Acetaminophen 5-325mg Tab PO 1 tab Q16H PRN Administration Pain, Moderate (4-6) Simple Syrup 15 ml 01/18/22 07:11 Simple Syrup 15 Ml FEEDTUBE PRN PRN Hypoglycemia Simple Syrup 30 ml 01/18/22 07:11 Simple Syrup 15 Ml FEEDTUBE PRN PRN Hypoglycemia Sodium Bicarbonate 325 mg 01/18/22 07:11 Sodium Bicarbonate 325 Mg Tab FEEDTUBE PRN PRN For Clogged Feeding Tube Sodium Chloride 10 ml 01/09/22 22:00 01/20/22 22:09 Sodium Chloride 0.9% 10 Ml Flush Syringe IV 10 ml BID JARROD Administration Sodium Chloride 10 ml 01/09/22 15:00 01/15/22 21:08 Sodium Chloride 0.9% 10 Ml Flush Syringe IV 10 ml PRN PRN Administration LINE FLUSH Zinc Sulfate 220 mg 01/09/22 22:00 01/20/22 22:05 Zinc Sulfate 220 Mg Cap PO 220 mg BID JARROD Administration
--- NOTE | 2022-01-21 10:21 | Progress Note ---
Assessment and Plan Assessment and plan: #Sepsis -resolved #COVID-19 infectionresolved #COVID-19 pneumoniaresolved -Blood cultures NGTD x5 daysfinal; UCx negative -continue doxycycline and rocephin -continue steroids; vitamins for COVID infection not a candidate for remdesivir due to kidney function -ID following, assistance appreciated #Acute respiratory failure with hypoxia-resolved -likely secondary to COVID PNA as opposed to bacterial pneumonia -Currently on room air -continuous pulse ox -continue steroids day 7of 10 #Acute metabolic encephalopathy-resolved #hx of Vascular dementia #Cerebral atherosclerosis -multifactorial; acute change likely secondary to infection -will continue to monitor #Newly declared ESRD -SCr 2.6 today -Renal US showed medical renal disease -avoid nephrotoxins and will renally dose medications -Nephrology following, assistance appreciated -Initiated hemodialysis on 01/15/2022. Status post triple-lumen HD catheter replacement with permacath by vascular surgery. -Pending HD chair at [facility] #Metabolic acidosis-resolved -secondary to renal failure #Dysphagiaresolved -Currently with PEG tube -continue tube feeds -Nutrition consult #Severe protein-calorie malnutrition -albumin 2.0 -continue TF, Nutrition managing #Sacral decubitus ulcer -Continue wound care #Discharge planning - Patient is pending HD chair. Patient is medically ready for discharge. - Case management has been made aware. - Patient to return to [facility] once medically stable Disposition Plan: Pending HD chair Total Time Spent with Patient (Minutes): 30 minutes History Interval history: No acute events overnight. Hospitalist Physical - Constitutional Vitals: Temp Pulse Resp BP Pulse Ox 97.9 F 88 20 140/79 97 01/21/22 04:09 01/21/22 04:09 01/21/22 04:09 01/21/22 04:09 01/21/22 04:09 General appearance: Present: no acute distress, cachectic - EENT Eyes: Present: PERRL, EOM intact ENT: hearing intact, clear oral mucosa - Neck Neck: Present: supple, normal ROM, other (Permacath in upper left chest) - Respiratory Respiratory effort: normal Respiratory: bilateral: CTA - Cardiovascular Rhythm: regular Heart Sounds: Present: S1 & S2 - Extremities Extremities: no ischemia, pulses intact, pulses symmetrical, No edema, normal temperature, normal color Peripheral Pulses: within normal limits - Abdominal General gastrointestinal: soft, non-tender, non-distended, normal bowel sounds, other (PEG tube in place) - Integumentary Integumentary: Present: clear, warm, dry - Psychiatric Psychiatric: appropriate mood/affect - Neurologic Neurologic: CNII-XII intact HEART Score - HEART Score Troponin: Troponin T 0.064 ng/mL (0.00-0.029) H 01/12/22 02:03 Results - Labs CBC & Chem 7: 01/10/22 06:16 01/17/22 06:15 Labs: Laboratory Last Values WBC 6.3 K/mm3 (4.5-11.0) 01/10/22 06:16 RBC 2.92 M/mm3 (3.65-5.03) L 01/10/22 06:16 Hgb 7.9 gm/dl (10.1-14.3) L 01/10/22 06:16 Hct 25.9 % (30.3-42.9) L 01/10/22 06:16 MCV 89 fl (79-97) 01/10/22 06:16 MCH 27 pg (28-32) L 01/10/22 06:16 MCHC 31 % (30-34) 01/10/22 06:16 RDW 16.8 % (13.2-15.2) H 01/10/22 06:16 Plt Count 162 K/mm3 (140-440) 01/10/22 06:16 Lymph % (Auto) Slide Fastener Repairer 01/10/22 06:16 [place] % (Auto) Slide Fastener Repairer 01/10/22 06:16 Eos % (Auto) Slide Fastener Repairer 01/10/22 06:16 Baso % (Auto) Slide Fastener Repairer 01/10/22 06:16 Lymph # (Auto) Slide Fastener Repairer 01/10/22 06:16 [place] # (Auto) Slide Fastener Repairer 01/10/22 06:16 Eos # (Auto) Slide Fastener Repairer 01/10/22 06:16 Baso # (Auto) Slide Fastener Repairer 01/10/22 06:16 Add Manual Diff Complete 01/10/22 06:16 Total Counted 100 01/10/22 06:16 Seg Neutrophils % Slide Fastener Repairer 01/10/22 06:16 Seg Neuts % (Manual) 59.0 % (40.0-70.0) 01/10/22 06:16 Band Neutrophils % 13.0 % 01/10/22 06:16 Lymphocytes % (Manual) 8.0 % (13.4-35.0) L 01/10/22 06:16 Reactive Lymphs % (Man) 0 % 01/10/22 06:16 Monocytes % (Manual) 0 % (0.0-7.3) 01/10/22 06:16 Eosinophils % (Manual) 0 % (0.0-4.3) 01/10/22 06:16 Basophils % (Manual) 0 % (0.0-1.8) 01/10/22 06:16 Metamyelocytes % 8.0 % 01/10/22 06:16 Myelocytes % 12.0 % 01/10/22 06:16 Promyelocytes % 0 % 01/10/22 06:16 Blast Cells % 0 % 01/10/22 06:16 Nucleated RBC % Not Reportable 01/10/22 06:16 Seg Neutrophils # Slide Fastener Repairer 01/10/22 06:16 Seg Neutrophils # Man 3.7 K/mm3 (1.8-7.7) 01/10/22 06:16 Band Neutrophils # 0.8 K/mm3 01/10/22 06:16 Lymphocytes # (Manual) 0.5 K/mm3 (1.2-5.4) L 01/10/22 06:16 Abs React Lymphs (Man) 0.0 K/mm3 01/10/22 06:16 Monocytes # (Manual) 0.0 K/mm3 (0.0-0.8) 01/10/22 06:16 Eosinophils # (Manual) 0.0 K/mm3 (0.0-0.4) 01/10/22 06:16 Basophils # (Manual) 0.0 K/mm3 (0.0-0.1) 01/10/22 06:16 Metamyelocytes # 0.5 K/mm3 01/10/22 06:16 Myelocytes # 0.8 K/mm3 01/10/22 06:16 Promyelocytes # 0.0 K/mm3 01/10/22 06:16 Blast Cells # 0.0 K/mm3 01/10/22 06:16 WBC Morphology Not Reportable 01/10/22 06:16 Hypersegmented Neuts Not Reportable 01/10/22 06:16 Hyposegmented Neuts Not Reportable 01/10/22 06:16 Hypogranular Neuts Not Reportable 01/10/22 06:16 Smudge Cells Not Reportable 01/10/22 06:16 Toxic Granulation Not Reportable 01/10/22 06:16 Toxic Vacuolation Not Reportable 01/10/22 06:16 Dohle Bodies Not Reportable 01/10/22 06:16 Pelger-Huet Anomaly Not Reportable 01/10/22 06:16 Lesley Rods Not Reportable 01/10/22 06:16 Platelet Estimate Consistent w auto 01/10/22 06:16 Clumped Platelets Not Reportable 01/10/22 06:16 Plt Clumps, EDTA Not Reportable 01/10/22 06:16 Large Platelets Not Reportable 01/10/22 06:16 Giant Platelets Not Reportable 01/10/22 06:16 Platelet Satelliting Not Reportable 01/10/22 06:16 Plt Morphology Comment Not Reportable 01/10/22 06:16 RBC Morphology Not Reportable 01/10/22 06:16 Dimorphic RBCs Not Reportable 01/10/22 06:16 Polychromasia Few 01/10/22 06:16 Hypochromasia Not Reportable 01/10/22 06:16 Poikilocytosis Not Reportable 01/10/22 06:16 Anisocytosis Not Reportable 01/10/22 06:16 Microcytosis Not Reportable 01/10/22 06:16 Macrocytosis Not Reportable 01/10/22 06:16 Spherocytes Not Reportable 01/10/22 06:16 Pappenheimer Bodies Not Reportable 01/10/22 06:16 Sickle Cells Not Reportable 01/10/22 06:16 Target Cells Not Reportable 01/10/22 06:16 Tear Drop Cells Not Reportable 01/10/22 06:16 Ovalocytes Not Reportable 01/10/22 06:16 Helmet Cells Not Reportable 01/10/22 06:16 [place] Bodies Not Reportable 01/10/22 06:16 [place] Rings Not Reportable 01/10/22 06:16 [place] Cells Not Reportable 01/10/22 06:16 Bite Cells Not Reportable 01/10/22 06:16 Crenated Cell Not Reportable 01/10/22 06:16 Elliptocytes Not Reportable 01/10/22 06:16 Acanthocytes (Spur) Not Reportable 01/10/22 06:16 Rouleaux Not Reportable 01/10/22 06:16 Hemoglobin C Crystals Not Reportable 01/10/22 06:16 Schistocytes Not Reportable 01/10/22 06:16 Malaria parasites Not Reportable 01/10/22 06:16 [place] Bodies Not Reportable 01/10/22 06:16 Hem Pathologist Commnt No 01/10/22 06:16 APTT 29.2 Sec. (24.2-36.6) 01/09/22 12:50 D-Dimer 4886.79 ng/mlDDU (0-234) H 01/11/22 07:58 Sodium 139 mmol/L (137-145) 01/17/22 06:15 Potassium 4.5 mmol/L (3.6-5.0) D 01/17/22 06:15 Chloride 105.3 mmol/L (98-107) 01/17/22 06:15 Carbon Dioxide 20 mmol/L (22-30) L 01/17/22 06:15 Anion Gap 18 mmol/L 01/17/22 06:15 BUN 97 mg/dL (7-17) H 01/17/22 06:15 Creatinine 2.8 mg/dL (0.6-1.2) H 01/17/22 06:15 Estimated GFR 21 ml/min 01/17/22 06:15 BUN/Creatinine Ratio 35 % 01/17/22 06:15 Glucose 106 mg/dL (65-100) H 01/17/22 06:15 POC Glucose 142 mg/dL (70-105) H 01/21/22 05:32 Lactic Acid 1.40 mmol/L (0.7-2.0) 01/09/22 12:50 Calcium 8.2 mg/dL (8.4-10.2) L 01/17/22 06:15 Phosphorus 4.90 mg/dL (2.5-4.5) H 01/16/22 06:50 Magnesium 1.60 mg/dL (1.7-2.3) L 01/16/22 06:50 Ferritin 2182.0 ng/mL (10.0-200.0) H 01/11/22 07:58 Total Bilirubin 0.20 mg/dL (0.1-1.2) 01/09/22 12:50 Direct Bilirubin < 0.2 mg/dL (0-0.2) 01/09/22 12:50 Indirect Bilirubin 0.0 mg/dL 01/09/22 12:50 AST 75 units/L (5-40) H 01/09/22 12:50 ALT 31 units/L (7-56) 01/09/22 12:50 Alkaline Phosphatase 69 units/L (35-129) 01/09/22 12:50 Lactate Dehydrogenase 332 units/L (91-180) H 01/11/22 07:58 Troponin T 0.064 ng/mL (0.00-0.029) H 01/12/22 02:03 C-Reactive Protein 30.40 mg/dL (0.00-1.30) H 01/11/22 07:58 NT-Pro-B Natriuret Pep 608.7 pg/mL (0-900) 01/09/22 12:50 Total Protein 7.9 g/dL (6.3-8.2) 01/09/22 12:50 Albumin 2.0 g/dL (3.9-5) L 01/09/22 12:50 Albumin/Globulin Ratio 0.3 % 01/09/22 12:50 Triglycerides 442 mg/dL (2-149) H 01/12/22 02:03 Cholesterol 132 mg/dL (50-199) 01/12/22 02:03 LDL Cholesterol Direct TNR 01/12/22 02:03 HDL Cholesterol 14 mg/dL (40-59) L 01/12/22 02:03 Cholesterol/HDL Ratio 9.42 % 01/12/22 02:03 Procalcitonin > 200.00 ng/mL (<0.15) 01/11/22 07:58 Urine Color Yellow (Yellow) 01/09/22 13:52 Urine Turbidity Hazy (Clear) 01/09/22 13:52 Urine pH 6.0 (5.0-7.0) 01/09/22 13:52 Ur Specific [place] 1.020 (1.003-1.030) 01/09/22 13:52 Urine Protein 100 mg/dl mg/dL (Negative) 01/09/22 13:52 Urine Glucose (UA) Neg mg/dL (Negative) 01/09/22 13:52 Urine Ketones Neg mg/dL (Negative) 01/09/22 13:52 Urine Blood Neg (Negative) 01/09/22 13:52 Urine Nitrite Neg (Negative) 01/09/22 13:52 Urine Bilirubin Neg (Negative) 01/09/22 13:52 Urine Urobilinogen < 2.0 mg/dL (<2.0) 01/09/22 13:52 Ur Leukocyte Esterase Neg (Negative) 01/09/22 13:52 Urine WBC (Auto) 4.0 /HPF (0.0-6.0) 01/09/22 13:52 Urine RBC (Auto) 3.0 /HPF (0.0-6.0) 01/09/22 13:52 U Epithel Cells (Auto) 2.0 /HPF (0-13.0) 01/09/22 13:52 Urine Bacteria (Auto) 1+ /HPF (Negative) 01/09/22 13:52 Urine Mucus Few /HPF 01/09/22 13:52 C. difficile Tox (PCR) Negative (Negative) 01/16/22 10:30 Coronavirus (PCR) Negative (Negative) 01/16/22 Unknown Hepatitis A IgM Ab Non-reactive (NonReactive) 01/14/22 Unknown Hep Bs Antigen Non-reactive (Negative) 01/14/22 Unknown Hep B Core IgM Ab Non-reactive (NonReactive) 01/14/22 Unknown Hepatitis C Antibody Non-reactive (NonReactive) 01/14/22 Unknown Blood Type B POSITIVE 01/09/22 14:37 Antibody Screen Negative 01/09/22 14:37 Samuel/IV: Voiding Method Incontinent Active Medications - Current Medications Current Medications: Generic Name Dose Route Start Last Admin Trade Name Freq PRN Reason Stop Dose Admin Acetaminophen 650 mg 01/09/22 15:00 01/09/22 22:12 Acetaminophen 325 Mg Tab PO 650 mg Q4H PRN Administration Pain MILD(1-3)/Fever >100.5/RILEY Albuterol 2.5 mg 01/09/22 14:25 Albuterol 2.5 Mg/3 Ml Nebu IH Q4HRT PRN Shortness Of Breath Amlodipine Besylate 10 mg 01/19/22 12:00 01/20/22 09:50 Amlodipine 10 Mg Tab PO 10 mg QDAY JARROD Administration Lipase/Protease/Amylase 1 each 01/18/22 07:11 Lipase 10,500/Protease 25,000/Amylase 43,750 (Units) Dr Stalin SIERRATBILL PRN PRN For Clogged Feeding Tube Ascorbic Acid 500 mg 01/09/22 22:00 01/20/22 22:05 Ascorbic Acid 500 Mg Tab PO 500 mg BID JARROD Administration Carvedilol 3.125 mg 01/12/22 12:00 01/20/22 22:11 Carvedilol 3.125 Mg Tab PO 3.125 mg BID JARROD Administration Cholecalciferol 1,000 unit 01/10/22 10:00 01/20/22 09:08 Cholecalciferol (Vit D3) 1000 Unit (25 Mcg) Tab PO 1,000 unit DAILY JARROD Administration Dextrose 0 ml 01/09/22 14:48 Dextrose 10% *Hypoglycemia IV PRN PRN Hypoglycemia Heparin Sodium (Porcine) 5,000 unit 01/09/22 22:00 01/20/22 22:07 Heparin 5,000 Unit/1 Ml Vial SUB-Q 5,000 unit Q12HR JARROD Administration Hydralazine HCl 10 mg 01/12/22 11:21 Hydralazine 20 Mg/1 Ml Inj IV Q4HR PRN Hypertension Hydromorphone HCl 0.25 mg 01/09/22 15:00 Hydromorphone 1 Mg/1 Ml Inj IV Q4H PRN Pain, Moderate (4-6) Hydromorphone HCl 0.5 mg 01/09/22 15:00 Hydromorphone 1 Mg/1 Ml Inj IV Q23H PRN Pain , Severe (7-10) Sodium Chloride 100 mls @ 999 mls/hr 01/15/22 09:08 Nacl 0.9% IV MYRNA PRN Hypotension Insulin Human Regular 0 units 01/15/22 18:00 01/21/22 06:34 Insulin Regular, Human 100 Units/1 Ml SUB-Q Not Given Q6H [facility] Protocol Losartan Potassium 50 mg 01/18/22 10:00 01/20/22 09:08 Losartan 50 Mg Tab PO 50 mg QDAY JARROD Administration Ondansetron HCl 4 mg 01/09/22 16:00 Ondansetron 4 Mg/2 Ml Inj IV Q8H PRN Nausea And Vomiting Oxycodone/Acetaminophen 1 tab 01/09/22 15:00 01/16/22 08:55 Oxycodone /Acetaminophen 5-325mg Tab PO 1 tab Q16H PRN Administration Pain, Moderate (4-6) Simple Syrup 15 ml 01/18/22 07:11 Simple Syrup 15 Ml FEEDTUBE PRN PRN Hypoglycemia Simple Syrup 30 ml 01/18/22 07:11 Simple Syrup 15 Ml FEEDTUBE PRN PRN Hypoglycemia Sodium Bicarbonate 325 mg 01/18/22 07:11 Sodium Bicarbonate 325 Mg Tab FEEDTUBE PRN PRN For Clogged Feeding Tube Sodium Chloride 10 ml 01/09/22 22:00 01/20/22 22:09 Sodium Chloride 0.9% 10 Ml Flush Syringe IV 10 ml BID JARROD Administration Sodium Chloride 10 ml 01/09/22 15:00 01/15/22 21:08 Sodium Chloride 0.9% 10 Ml Flush Syringe IV 10 ml PRN PRN Administration LINE FLUSH Zinc Sulfate 220 mg 01/09/22 22:00 01/20/22 22:05 Zinc Sulfate 220 Mg Cap PO 220 mg BID JARROD Administration Nutrition/Malnutrition Assess - Dietary Evaluation Nutrition/Malnutrition Findings: Nutrition Notes Start: 01/10/22 13:52 Freq: Status: Active Protocol: Document 01/18/22 10:33 FLOR (Rec: 01/18/22 10:50 FLOR [id number]) Nutrition Notes Initial or Follow up Reassessment Current Diagnosis Acute Kidney Injury,Decubitus( Pressure Ulcer),Sepsis, Respiratory Failure, Malnutrition Other Pertinent Diagnosis COVID-19/Pneumonia, Metabolic Acidosis, KELSIE/ATN, Dysphagia, Dementia... Current Diet TF-Nepro w/CARBSTEADY @ 30 ml/ hr (since L 01/18). Labs/Tests 01/17: CO2 20, BUN 97, Crea 2. 8, Glu 106. Pertinent Medications 01/18: Vit C, Vit D3, Dw5 1000 ml @ 125 ml/hr, ZnSO4, others nutritionally unremarkable. Height 5 ft 4 in Weight 48 kg [place] Body Weight (kg) 54.54 BMI 18.1 Weight change and time frame No body weight change reported in 9 days. Weight Status Underweight Subjective/Other Information RD consult for write/manage TF . Pt underwent procedure 01/17: Pemacath placement, well tolerated. TF resumed as previously prescribed. Pt medically cleared for Discharge. Percent of energy/protein needs met: Prescribed TF-Nepro w/ CARBSTEADY @ 30 ml/hr provides for energy/protein needs (1, 296 Kcal/58 g) during LOS, 77% Kcal; 100% AA. Burn Absent Trauma Absent GI Symptoms None Difficulty In Swallowing Food Allergy No Skin Integrity/Comment Sacral Decubitus Current % PO Other Minimum of two criteria Yes Energy Intake (severe) < or equal to 50% Estimated Energy Requirement > or equal to 5 days Body Fat Depletion Moderate depletion (severe) Protein-Calorie Malnutrition Severe #1 Nutrition Diagnosis Underweight Diagnosis Progress(for reassessment Continues documentation) Is patient on ventilator? No Is Patient Ambulatory and/or Out of Bed No REE-([place]-confined to bed) 1223.568 Kcal/Kg value to use for calculation 35 Approximate Energy Requirements Using 1680 kcal/Kg Calculation Used for Recommendations Kcal/kg Additional Notes Protein: 1.2-1.5 g/Kg; 58-72 g /day. Fluids: 1 ml/Kcal, or as per MD. Nutrition Intervention Nutrition Support: Resume TF-Nepro w/CARBSTEADY @ 30 ml/hr. Flush: 130 ml water Q 4 hr, or as per MD. Kcal 1,296 Protein (gm) 58 Carbohydrates (gm) 116 Fat (gm) 69 Fluid (mL) 523 Fiber (gm) 9 % RDI: 77% Kcal; 100% AA. Goal #1 Provide at least 75% of energy /protein needs through Enteral Feeding during LOS. Goal #2 Maintain body weight within +/ -3% of admission body weight during LOS. Follow-Up By: 01/25/22 Additional Comments Continue monitoring TF tolerance and BM.
[2022-01-21] MEDS: CHOLECALCIFEROL (VIT D3) 1000 UNIT (25 mcg) TAB PO SCH (11:24)
[2022-01-21] MEDS: LOSARTAN 50 MG TAB PO SCH (11:24)
[2022-01-21] MEDS: amLODIPine 10 MG TAB PO SCH (11:24)
[2022-01-21] MEDS: HEPARIN 5,000 UNIT/1 ML VIAL SUB-Q SCH ×2 (11:24→23:26)
[2022-01-21] MEDS: ZINC SULFATE 220 MG CAP PO SCH ×2 (11:24→23:26)
[2022-01-21] MEDS: ASCORBIC ACID 500 MG TAB PO SCH ×2 (11:24→23:25)
[2022-01-21] MEDS: carvediloL 3.125 MG TAB PO SCH ×2 (11:25→23:26)
[2022-01-22] MEDS: INSULIN REGULAR, HUMAN 100 UNITS/1 ML SUB-Q SCH ×3 (05:41→18:23)
[2022-01-22] MEDS: FREE WATER PO SCH (05:41)
[2022-01-22 07:16] LABS: Hemoglobin 7.3 gm/dl (10.1-14.3); Mean Corpuscular HGB Conc 33 % (30-34); Mean Corpuscular Volume 82 fl (79-97); Platelet Count 221 K/mm3 (140-440); Red Blood Count 2.67 M/mm3 (3.65-5.03); Red Cell Distribution Width 15.8 % (13.2-15.2)
[2022-01-22 07:53] LABS: Calcium 7.9 mg/dL (8.4-10.2)
--- NOTE | 2022-01-22 09:09 | Progress Note ---
Subjective Date of service: 01/22/22 Principal diagnosis: kelsie Interval history: Impression: * Acute kidney injury secondary to COVID related ATN * Azotemia secondary to multifactorial etiologies: KELSIE vs steroids * Hypernatremia * Acute hypoxic respiratory failure secondary to COVID 19 PNA * COVID 19 infection Plan: * plan to continue HD // * stop free water, sodium noted * follow up lytes and crcl for signs of renal recovery * Appreciate permacath placement per vascular * stop any D5W for hydration, sodium is low, needs daily lytes * Steroids per primary team * Management of COVID 19 per primary team * Avoid potential nephrotoxins * Dose medications for renal function * Outpatient HD unit placement pending, likely [facility] Subjective Interval history: No acute events noted, patient resting in bed. Chart/vitals/labs reviewed in detail Objective exam deferred for preservation of PPE Objective - Vital Signs Vital signs: Vital Signs - 12hr 01/21/22 01/21/22 01/22/22 21:50 22:00 04:25 Temperature 99.3 F 99.1 F Pulse Rate 73 81 Respiratory 20 20 Rate Blood Pressure 158/80 Blood Pressure 140/78 [Left] O2 Sat by Pulse 100 96 98 Oximetry 01/22/22 08:21 Temperature Pulse Rate Respiratory Rate Blood Pressure Blood Pressure [Left] O2 Sat by Pulse 96 Oximetry - Lab 01/22/22 06:45 01/22/22 06:45 Most recent lab results Calcium 7.9 mg/dL (8.4-10.2) L 01/22/22 06:45 Phosphorus 4.90 mg/dL (2.5-4.5) H 01/16/22 06:50 Magnesium 1.60 mg/dL (1.7-2.3) L 01/16/22 06:50 Urine Creatinine 15.2 mg/dL (0.1-20.0) 01/21/22 18:37 Medications & Allergies - Medications Allergies/Adverse Reactions: Allergies No Known Allergies Allergy (Verified 01/09/22 11:43) Home Medications: Home Medications Medication Instructions Recorded Confirmed Last Taken Type amLODIPine 10 mg PO QDAY #30 tablet 03/09/21 01/09/22 Unknown Rx carvediloL [Coreg] 3.125 mg PO BID #60 tablet 03/09/21 01/09/22 Unknown Rx Cholecalciferol Vit D3 [Vitamin D3 1,000 unit PO DAILY #30 tablet 01/16/22 Unknown Rx 1,000 UNIT TAB] Losartan [Cozaar] 50 mg PO QDAY #30 tablet 01/18/22 Unknown Rx NIFEdipine XL [Procardia Xl] 30 mg PO QDAY #30 tablet 01/18/22 Unknown Rx Active Medications: Generic Name Dose Route Start Last Admin Trade Name Freq PRN Reason Stop Dose Admin Acetaminophen 650 mg 01/09/22 15:00 01/09/22 22:12 Acetaminophen 325 Mg Tab PO 650 mg Q4H PRN Administration Pain MILD(1-3)/Fever >100.5/RILEY Albuterol 2.5 mg 01/09/22 14:25 Albuterol 2.5 Mg/3 Ml Nebu IH Q4HRT PRN Shortness Of Breath Amlodipine Besylate 10 mg 01/19/22 12:00 01/21/22 11:24 Amlodipine 10 Mg Tab PO 10 mg QDAY JARROD Administration Lipase/Protease/Amylase 1 each 01/18/22 07:11 Lipase 10,500/Protease 25,000/Amylase 43,750 (Units) Dr Gant FEEDTUBE PRN PRN For Clogged Feeding Tube Ascorbic Acid 500 mg 01/09/22 22:00 01/21/22 23:25 Ascorbic Acid 500 Mg Tab PO 500 mg BID JARROD Administration Carvedilol 3.125 mg 01/12/22 12:00 01/21/22 23:26 Carvedilol 3.125 Mg Tab PO 3.125 mg BID JARROD Administration Cholecalciferol 1,000 unit 01/10/22 10:00 01/21/22 11:24 Cholecalciferol (Vit D3) 1000 Unit (25 Mcg) Tab PO 1,000 unit DAILY JARROD Administration Dextrose 0 ml 01/09/22 14:48 Dextrose 10% *Hypoglycemia IV PRN PRN Hypoglycemia Heparin Sodium (Porcine) 5,000 unit 01/09/22 22:00 01/21/22 23:26 Heparin 5,000 Unit/1 Ml Vial SUB-Q 5,000 unit Q12HR JARROD Administration Hydralazine HCl 10 mg 01/12/22 11:21 Hydralazine 20 Mg/1 Ml Inj IV Q4HR PRN Hypertension Hydromorphone HCl 0.25 mg 01/09/22 15:00 Hydromorphone 1 Mg/1 Ml Inj IV Q4H PRN Pain, Moderate (4-6) Hydromorphone HCl 0.5 mg 01/09/22 15:00 Hydromorphone 1 Mg/1 Ml Inj IV Q23H PRN Pain , Severe (7-10) Sodium Chloride 100 mls @ 999 mls/hr 01/15/22 09:08 Nacl 0.9% IV MYRNA PRN Hypotension Insulin Human Regular 0 units 01/15/22 18:00 01/22/22 05:41 Insulin Regular, Human 100 Units/1 Ml SUB-Q Not Given Q6H [facility] Protocol Losartan Potassium 50 mg 01/18/22 10:00 01/21/22 11:24 Losartan 50 Mg Tab PO 50 mg QDAY JARROD Administration Ondansetron HCl 4 mg 01/09/22 16:00 Ondansetron 4 Mg/2 Ml Inj IV Q8H PRN Nausea And Vomiting Oxycodone/Acetaminophen 1 tab 01/09/22 15:00 01/16/22 08:55 Oxycodone /Acetaminophen 5-325mg Tab PO 1 tab Q16H PRN Administration Pain, Moderate (4-6) Simple Syrup 15 ml 01/18/22 07:11 Simple Syrup 15 Ml FEEDTUBE PRN PRN Hypoglycemia Simple Syrup 30 ml 01/18/22 07:11 Simple Syrup 15 Ml FEEDTUBE PRN PRN Hypoglycemia Sodium Bicarbonate 325 mg 01/18/22 07:11 Sodium Bicarbonate 325 Mg Tab FEEDTUBE PRN PRN For Clogged Feeding Tube Sodium Chloride 10 ml 01/09/22 22:00 01/21/22 23:25 Sodium Chloride 0.9% 10 Ml Flush Syringe IV 10 ml BID JARROD Administration Sodium Chloride 10 ml 01/09/22 15:00 01/15/22 21:08 Sodium Chloride 0.9% 10 Ml Flush Syringe IV 10 ml PRN PRN Administration LINE FLUSH Zinc Sulfate 220 mg 01/09/22 22:00 01/21/22 23:26 Zinc Sulfate 220 Mg Cap PO 220 mg BID JARROD Administration
[2022-01-22 11:04] LABS: Band Neutrophils # (Manual) 0.1 K/mm3; Basophils % (Manual) 0 % (0.0-1.8); Eosinophils % (Manual) 0 % (0.0-4.3); Total Cells Counted 100
[2022-01-22 11:05] LABS: Hypochromasia 1+; Platelet Estimate Consistent w Auto
[2022-01-22] MEDS: HEPARIN 5,000 UNIT/1 ML VIAL SUB-Q SCH ×2 (12:27→22:45)
[2022-01-22] MEDS: ZINC SULFATE 220 MG CAP PO SCH ×2 (13:15→22:44)
[2022-01-22] MEDS: CHOLECALCIFEROL (VIT D3) 1000 UNIT (25 mcg) TAB PO SCH (13:15)
[2022-01-22] MEDS: amLODIPine 10 MG TAB PO SCH (13:16)
[2022-01-22] MEDS: carvediloL 3.125 MG TAB PO SCH ×2 (13:16→22:44)
[2022-01-22] MEDS: LOSARTAN 50 MG TAB PO SCH (13:16)
[2022-01-22] MEDS: oxyCODONE /ACETAMINOPHEN 5-325MG TAB PO PRN (13:17)
[2022-01-22] MEDS: ASCORBIC ACID 500 MG TAB PO SCH ×2 (13:18→22:44)
--- NOTE | 2022-01-22 15:16 | Progress Note ---
Assessment and Plan Assessment and plan: #Hyponatremia -Sodium 118 -free water and IVFs discontinued -q8h Na, will continue to monitor #Sepsis -improving #COVID-19 infection #Pneumonia -blood and urine cultures negative -s/p doxycycline and rocephin -s/p steroids; vitamins for COVID infection did not receive remdesivir due to kidney function -ID following, assistance appreciated #Acute respiratory failure with hypoxia-resolved -currently weaned to RA -continuous pulse ox -likely secondary to COVID PNA vs bacterial PNA #Acute metabolic encephalopathy-resolved #hx of Vascular dementia #Cerebral atherosclerosis -multifactorial; acute change likely secondary to infection -will continue to monitor #Newly declared ESRD -Renal US showed medical renal disease -avoid nephrotoxins and will renally dose medications -Nephrology following, assistance appreciated -Initiated hemodialysis on 01/15/2022. Status post triple-lumen HD catheter replacement with permacath by vascular surgery. -Pending HD chair at [facility] #Metabolic acidosis -secondary to renal failure #Dysphagia -Currently with PEG tube -continue tube feeds -Nutrition consult #Severe protein-calorie malnutrition -albumin 2.0 -continue TF, Nutrition managing #Sacral decubitus ulcer -Continue wound care #Discharge planning #Advance care planning -Patient to return to [facility] once HD chair solidified Disposition Plan: pending HD chair History Interval history: No acute events overnight per nursing. Patient opens eyes to verbal stimulatio n. Does not participate in interview. Hospitalist Physical - Physical exam Narrative exam: GENERAL: Cachexic. In no acute distress. HEENT:Dry mucus membranes NECK: RIJ Vasc cath, L catheter CHEST/LUNGS: CTAB on RA HEART/CARDIOVASCULAR: RRR. No murmur, rubs or gallops appreciated. ABDOMEN: PEG tube. +BS. NT/ND. NEURO: Unable to assess. MUSCULOSKELETAL: No joint effusion EXTREMITIES: No cyanosis, clubbing or edema. PSYCH: Cooperative. - Constitutional Vitals: Temp Pulse Resp BP Pulse Ox 98.2 F 67 16 156/67 97 01/22/22 12:30 01/22/22 13:16 01/22/22 12:30 01/22/22 13:16 01/22/22 12:30 General appearance: Present: no acute distress, cachectic HEART Score - HEART Score Troponin: Troponin T 0.064 ng/mL (0.00-0.029) H 01/12/22 02:03 Results - Labs CBC & Chem 7: 01/22/22 06:45 01/22/22 06:45 Labs: Laboratory Last Values WBC 12.5 K/mm3 (4.5-11.0) H 01/22/22 06:45 RBC 2.67 M/mm3 (3.65-5.03) L 01/22/22 06:45 Hgb 7.3 gm/dl (10.1-14.3) L 01/22/22 06:45 Hct 22.0 % (30.3-42.9) L 01/22/22 06:45 MCV 82 fl (79-97) 01/22/22 06:45 MCH 27 pg (28-32) L 01/22/22 06:45 MCHC 33 % (30-34) 01/22/22 06:45 RDW 15.8 % (13.2-15.2) H 01/22/22 06:45 Plt Count 221 K/mm3 (140-440) 01/22/22 06:45 Lymph % (Auto) Secretary Office Clerk 01/10/22 06:16 Motley % (Auto) Secretary Office Clerk 01/10/22 06:16 Eos % (Auto) Secretary Office Clerk 01/10/22 06:16 Baso % (Auto) Secretary Office Clerk 01/10/22 06:16 Lymph # (Auto) Secretary Office Clerk 01/10/22 06:16 Motley # (Auto) Secretary Office Clerk 01/10/22 06:16 Eos # (Auto) Secretary Office Clerk 01/10/22 06:16 Baso # (Auto) Secretary Office Clerk 01/10/22 06:16 Add Manual Diff Complete 01/22/22 06:45 Total Counted 100 01/22/22 06:45 Seg Neutrophils % Secretary Office Clerk 01/22/22 06:45 Seg Neuts % (Manual) 98.0 % (40.0-70.0) H 01/22/22 06:45 Band Neutrophils % 1.0 % 01/22/22 06:45 Lymphocytes % (Manual) 0 % (13.4-35.0) L 01/22/22 06:45 Reactive Lymphs % (Man) 0 % 01/22/22 06:45 Monocytes % (Manual) 1.0 % (0.0-7.3) 01/22/22 06:45 Eosinophils % (Manual) 0 % (0.0-4.3) 01/22/22 06:45 Basophils % (Manual) 0 % (0.0-1.8) 01/22/22 06:45 Metamyelocytes % 0 % 01/22/22 06:45 Myelocytes % 0 % 01/22/22 06:45 Promyelocytes % 0 % 01/22/22 06:45 Blast Cells % 0 % 01/22/22 06:45 Nucleated RBC % Not Reportable 01/22/22 06:45 Seg Neutrophils # Secretary Office Clerk 01/10/22 06:16 Seg Neutrophils # Man 12.3 K/mm3 (1.8-7.7) H 01/22/22 06:45 Band Neutrophils # 0.1 K/mm3 01/22/22 06:45 Lymphocytes # (Manual) 0.0 K/mm3 (1.2-5.4) L 01/22/22 06:45 Abs React Lymphs (Man) 0.0 K/mm3 01/22/22 06:45 Monocytes # (Manual) 0.1 K/mm3 (0.0-0.8) 01/22/22 06:45 Eosinophils # (Manual) 0.0 K/mm3 (0.0-0.4) 01/22/22 06:45 Basophils # (Manual) 0.0 K/mm3 (0.0-0.1) 01/22/22 06:45 Metamyelocytes # 0.0 K/mm3 01/22/22 06:45 Myelocytes # 0.0 K/mm3 01/22/22 06:45 Promyelocytes # 0.0 K/mm3 01/22/22 06:45 Blast Cells # 0.0 K/mm3 01/22/22 06:45 WBC Morphology Not Reportable 01/22/22 06:45 Hypersegmented Neuts Not Reportable 01/22/22 06:45 Hyposegmented Neuts Not Reportable 01/22/22 06:45 Hypogranular Neuts Not Reportable 01/22/22 06:45 Smudge Cells Not Reportable 01/22/22 06:45 Toxic Granulation Not Reportable 01/22/22 06:45 Toxic Vacuolation Not Reportable 01/22/22 06:45 Dohle Bodies Not Reportable 01/22/22 06:45 Pelger-Huet Anomaly Not Reportable 01/22/22 06:45 Lesley Rods Not Reportable 01/22/22 06:45 Platelet Estimate Consistent w auto 01/22/22 06:45 Clumped Platelets Not Reportable 01/22/22 06:45 Plt Clumps, EDTA Not Reportable 01/22/22 06:45 Large Platelets Not Reportable 01/22/22 06:45 Giant Platelets Not Reportable 01/22/22 06:45 Platelet Satelliting Not Reportable 01/22/22 06:45 Plt Morphology Comment Not Reportable 01/22/22 06:45 RBC Morphology Not Reportable 01/22/22 06:45 Dimorphic RBCs Not Reportable 01/22/22 06:45 Polychromasia Not Reportable 01/22/22 06:45 Hypochromasia 1+ 01/22/22 06:45 Poikilocytosis Not Reportable 01/22/22 06:45 Anisocytosis Not Reportable 01/22/22 06:45 Microcytosis Not Reportable 01/22/22 06:45 Macrocytosis Not Reportable 01/22/22 06:45 Spherocytes Not Reportable 01/22/22 06:45 Pappenheimer Bodies Not Reportable 01/22/22 06:45 Sickle Cells Not Reportable 01/22/22 06:45 Target Cells Not Reportable 01/22/22 06:45 Tear Drop Cells Not Reportable 01/22/22 06:45 Ovalocytes Not Reportable 01/22/22 06:45 Helmet Cells Not Reportable 01/22/22 06:45 [place] Bodies Not Reportable 01/22/22 06:45 [place] Rings Not Reportable 01/22/22 06:45 [place] Cells Not Reportable 01/22/22 06:45 Bite Cells Not Reportable 01/22/22 06:45 Crenated Cell Not Reportable 01/22/22 06:45 Elliptocytes Not Reportable 01/22/22 06:45 Acanthocytes (Spur) Not Reportable 01/22/22 06:45 Rouleaux Not Reportable 01/22/22 06:45 Hemoglobin C Crystals Not Reportable 01/22/22 06:45 Schistocytes Not Reportable 01/22/22 06:45 Malaria parasites Not Reportable 01/22/22 06:45 Artemio Bodies Not Reportable 01/22/22 06:45 Hem Pathologist Commnt No 01/22/22 06:45 APTT 29.2 Sec. (24.2-36.6) 01/09/22 12:50 D-Dimer 4886.79 ng/mlDDU (0-234) H 01/11/22 07:58 Sodium 118 mmol/L (137-145) L* 01/22/22 06:45 Potassium 4.3 mmol/L (3.6-5.0) 01/22/22 06:45 Chloride 86.6 mmol/L (98-107) L 01/22/22 06:45 Carbon Dioxide 19 mmol/L (22-30) L 01/22/22 06:45 Anion Gap 18 mmol/L 01/22/22 06:45 BUN 62 mg/dL (7-17) H 01/22/22 06:45 Creatinine 2.5 mg/dL (0.6-1.2) H 01/22/22 06:45 Estimated GFR 23 ml/min 01/22/22 06:45 BUN/Creatinine Ratio 25 % 01/22/22 06:45 Glucose 109 mg/dL (65-100) H 01/22/22 06:45 POC Glucose 102 mg/dL (70-105) 01/22/22 05:25 Lactic Acid 1.40 mmol/L (0.7-2.0) 01/09/22 12:50 Calcium 7.9 mg/dL (8.4-10.2) L 01/22/22 06:45 Phosphorus 4.90 mg/dL (2.5-4.5) H 01/16/22 06:50 Magnesium 1.60 mg/dL (1.7-2.3) L 01/16/22 06:50 Ferritin 2182.0 ng/mL (10.0-200.0) H 01/11/22 07:58 Total Bilirubin 0.20 mg/dL (0.1-1.2) 01/09/22 12:50 Direct Bilirubin < 0.2 mg/dL (0-0.2) 01/09/22 12:50 Indirect Bilirubin 0.0 mg/dL 01/09/22 12:50 AST 75 units/L (5-40) H 01/09/22 12:50 ALT 31 units/L (7-56) 01/09/22 12:50 Alkaline Phosphatase 69 units/L (35-129) 01/09/22 12:50 Lactate Dehydrogenase 332 units/L (91-180) H 01/11/22 07:58 Troponin T 0.064 ng/mL (0.00-0.029) H 01/12/22 02:03 C-Reactive Protein 30.40 mg/dL (0.00-1.30) H 01/11/22 07:58 NT-Pro-B Natriuret Pep 608.7 pg/mL (0-900) 01/09/22 12:50 Total Protein 7.9 g/dL (6.3-8.2) 01/09/22 12:50 Albumin 2.0 g/dL (3.9-5) L 01/09/22 12:50 Albumin/Globulin Ratio 0.3 % 01/09/22 12:50 Triglycerides 442 mg/dL (2-149) H 01/12/22 02:03 Cholesterol 132 mg/dL (50-199) 01/12/22 02:03 LDL Cholesterol Direct TNR 01/12/22 02:03 HDL Cholesterol 14 mg/dL (40-59) L 01/12/22 02:03 Cholesterol/HDL Ratio 9.42 % 01/12/22 02:03 Procalcitonin > 200.00 ng/mL (<0.15) 01/11/22 07:58 Urine Color Yellow (Yellow) 01/09/22 13:52 Urine Turbidity Hazy (Clear) 01/09/22 13:52 Urine pH 6.0 (5.0-7.0) 01/09/22 13:52 Ur Specific [place] 1.020 (1.003-1.030) 01/09/22 13:52 Urine Protein 100 mg/dl mg/dL (Negative) 01/09/22 13:52 Urine Glucose (UA) Neg mg/dL (Negative) 01/09/22 13:52 Urine Ketones Neg mg/dL (Negative) 01/09/22 13:52 Urine Blood Neg (Negative) 01/09/22 13:52 Urine Nitrite Neg (Negative) 01/09/22 13:52 Urine Bilirubin Neg (Negative) 01/09/22 13:52 Urine Urobilinogen < 2.0 mg/dL (<2.0) 01/09/22 13:52 Ur Leukocyte Esterase Neg (Negative) 01/09/22 13:52 Urine WBC (Auto) 4.0 /HPF (0.0-6.0) 01/09/22 13:52 Urine RBC (Auto) 3.0 /HPF (0.0-6.0) 01/09/22 13:52 U Epithel Cells (Auto) 2.0 /HPF (0-13.0) 01/09/22 13:52 Urine Bacteria (Auto) 1+ /HPF (Negative) 01/09/22 13:52 Urine Mucus Few /HPF 01/09/22 13:52 Urine Creatinine 15.2 mg/dL (0.1-20.0) 01/21/22 18:37 C. difficile Tox (PCR) Negative (Negative) 01/16/22 10:30 Coronavirus (PCR) Negative (Negative) 01/16/22 Unknown Hepatitis A IgM Ab Non-reactive (NonReactive) 01/14/22 Unknown Hep Bs Antigen Non-reactive (Negative) 01/14/22 Unknown Hep B Core IgM Ab Non-reactive (NonReactive) 01/14/22 Unknown Hepatitis C Antibody Non-reactive (NonReactive) 01/14/22 Unknown Blood Type B POSITIVE 01/09/22 14:37 Antibody Screen Negative 01/09/22 14:37 Samuel/IV: Voiding Method Diaper Active Medications - Current Medications Current Medications: Generic Name Dose Route Start Last Admin Trade Name Freq PRN Reason Stop Dose Admin Acetaminophen 650 mg 01/09/22 15:00 01/09/22 22:12 Acetaminophen 325 Mg Tab PO 650 mg Q4H PRN Administration Pain MILD(1-3)/Fever >100.5/RILEY Albuterol 2.5 mg 01/09/22 14:25 Albuterol 2.5 Mg/3 Ml Nebu IH Q4HRT PRN Shortness Of Breath Amlodipine Besylate 10 mg 01/19/22 12:00 01/22/22 13:16 Amlodipine 10 Mg Tab PO 10 mg QDAY JARROD Administration Lipase/Protease/Amylase 1 each 01/18/22 07:11 Lipase 10,500/Protease 25,000/Amylase 43,750 (Units) Dr Gant FEEDTUBE PRN PRN For Clogged Feeding Tube Ascorbic Acid 500 mg 01/09/22 22:00 01/22/22 13:18 Ascorbic Acid 500 Mg Tab PO 500 mg BID JARROD Administration Carvedilol 3.125 mg 01/12/22 12:00 01/22/22 13:16 Carvedilol 3.125 Mg Tab PO 3.125 mg BID [facility] Administration Cholecalciferol 1,000 unit 01/10/22 10:00 01/22/22 13:15 Cholecalciferol (Vit D3) 1000 Unit (25 Mcg) Tab PO 1,000 unit DAILY JARROD Administration Dextrose 0 ml 01/09/22 14:48 Dextrose 10% *Hypoglycemia IV PRN PRN Hypoglycemia Heparin Sodium (Porcine) 5,000 unit 01/09/22 22:00 01/22/22 12:27 Heparin 5,000 Unit/1 Ml Vial SUB-Q Not Given Q12HR [facility] Hydralazine HCl 10 mg 01/12/22 11:21 Hydralazine 20 Mg/1 Ml Inj IV Q4HR PRN Hypertension Hydromorphone HCl 0.25 mg 01/09/22 15:00 Hydromorphone 1 Mg/1 Ml Inj IV Q4H PRN Pain, Moderate (4-6) Hydromorphone HCl 0.5 mg 01/09/22 15:00 Hydromorphone 1 Mg/1 Ml Inj IV Q23H PRN Pain , Severe (7-10) Sodium Chloride 100 mls @ 999 mls/hr 01/15/22 09:08 Nacl 0.9% IV MYRNA PRN Hypotension Insulin Human Regular 0 units 01/15/22 18:00 01/22/22 12:28 Insulin Regular, Human 100 Units/1 Ml SUB-Q Not Given Q6H [facility] Protocol Losartan Potassium 50 mg 01/18/22 10:00 01/22/22 13:16 Losartan 50 Mg Tab PO 50 mg QDAY [facility] Administration Ondansetron HCl 4 mg 01/09/22 16:00 Ondansetron 4 Mg/2 Ml Inj IV Q8H PRN Nausea And Vomiting Oxycodone/Acetaminophen 1 tab 01/09/22 15:00 01/22/22 13:17 Oxycodone /Acetaminophen 5-325mg Tab PO 1 tab Q16H PRN Administration Pain, Moderate (4-6) Simple Syrup 15 ml 01/18/22 07:11 Simple Syrup 15 Ml FEEDTUBE PRN PRN Hypoglycemia Simple Syrup 30 ml 01/18/22 07:11 Simple Syrup 15 Ml FEEDTUBE PRN PRN Hypoglycemia Sodium Bicarbonate 325 mg 01/18/22 07:11 Sodium Bicarbonate 325 Mg Tab FEEDTUBE PRN PRN For Clogged Feeding Tube Sodium Chloride 10 ml 01/09/22 22:00 01/22/22 13:18 Sodium Chloride 0.9% 10 Ml Flush Syringe IV 10 ml BID JARROD Administration Sodium Chloride 10 ml 01/09/22 15:00 01/15/22 21:08 Sodium Chloride 0.9% 10 Ml Flush Syringe IV 10 ml PRN PRN Administration LINE FLUSH Zinc Sulfate 220 mg 01/09/22 22:00 01/22/22 13:15 Zinc Sulfate 220 Mg Cap PO 220 mg BID JARROD Administration Nutrition/Malnutrition Assess - Dietary Evaluation Nutrition/Malnutrition Findings: Nutrition Notes Start: 01/10/22 13:52 Freq: Status: Active Protocol: Document 01/18/22 10:33 FLOR (Rec: 01/18/22 10:50 FLOR [email or web address]) Nutrition Notes Initial or Follow up Reassessment Current Diagnosis Acute Kidney Injury,Decubitus( Pressure Ulcer),Sepsis, Respiratory Failure, Malnutrition Other Pertinent Diagnosis COVID-19/Pneumonia, Metabolic Acidosis, KELSIE/ATN, Dysphagia, Dementia... Current Diet TF-Nepro w/CARBSTEADY @ 30 ml/ hr (since L 01/18). Labs/Tests 01/17: CO2 20, BUN 97, Crea 2. 8, Glu 106. Pertinent Medications 01/18: Vit C, Vit D3, Dw5 1000 ml @ 125 ml/hr, ZnSO4, others nutritionally unremarkable. Height 5 ft 4 in Weight 48 kg [place] Body Weight (kg) 54.54 BMI 18.1 Weight change and time frame No body weight change reported in 9 days. Weight Status Underweight Subjective/Other Information RD consult for write/manage TF . Pt underwent procedure 01/17: Pemacath placement, well tolerated. TF resumed as previously prescribed. Pt medically cleared for Discharge. Percent of energy/protein needs met: Prescribed TF-Nepro w/ CARBSTEADY @ 30 ml/hr provides for energy/protein needs (1, 296 Kcal/58 g) during LOS, 77% Kcal; 100% AA. Burn Absent Trauma Absent GI Symptoms None Difficulty In Swallowing Food Allergy No Skin Integrity/Comment Sacral Decubitus Current % PO Other Minimum of two criteria Yes Energy Intake (severe) < or equal to 50% Estimated Energy Requirement > or equal to 5 days Body Fat Depletion Moderate depletion (severe) Protein-Calorie Malnutrition Severe #1 Nutrition Diagnosis Underweight Diagnosis Progress(for reassessment Continues documentation) Is patient on ventilator? No Is Patient Ambulatory and/or Out of Bed No REE-([place]-St. Jeor-confined to bed) 1223.568 Kcal/Kg value to use for calculation 35 Approximate Energy Requirements Using 1680 kcal/Kg Calculation Used for Recommendations Kcal/kg Additional Notes Protein: 1.2-1.5 g/Kg; 58-72 g /day. Fluids: 1 ml/Kcal, or as per MD. Nutrition Intervention Nutrition Support: Resume TF-Nepro w/CARBSTEADY @ 30 ml/hr. Flush: 130 ml water Q 4 hr, or as per MD. Kcal 1,296 Protein (gm) 58 Carbohydrates (gm) 116 Fat (gm) 69 Fluid (mL) 523 Fiber (gm) 9 % RDI: 77% Kcal; 100% AA. Goal #1 Provide at least 75% of energy /protein needs through Enteral Feeding during LOS. Goal #2 Maintain body weight within +/ -3% of admission body weight during LOS. Follow-Up By: 01/25/22 Additional Comments Continue monitoring TF tolerance and BM.
[2022-01-22] MEDS ORDERED: SODIUM CHLORIDE 1 GM TAB PO ONE (16:00)
[2022-01-23] MEDS: INSULIN REGULAR, HUMAN 100 UNITS/1 ML SUB-Q SCH ×4 (03:48→18:09)
[2022-01-23] MEDS: ACETAMINOPHEN 325 MG TAB PO PRN ×2 (05:36→12:59)
[2022-01-23 06:02] LABS: Mean Corpuscular HGB Conc 33 % (30-34); Mean Corpuscular Volume 84 fl (79-97); Platelet Count 182 K/mm3 (140-440); Red Blood Count 2.15 M/mm3 (3.65-5.03); Red Cell Distribution Width 15.8 % (13.2-15.2)
[2022-01-23 06:04] LABS: Calcium 7.2 mg/dL (8.4-10.2)
[2022-01-23 07:15] LABS: Band Neutrophils # (Manual) 0.2 K/mm3; Eosinophils % (Manual) 0 % (0.0-4.3); Total Cells Counted 100
[2022-01-23 07:16] LABS: Anisocytosis 1+; Hypochromasia 1+; Platelet Estimate Consistent w Auto; Toxic Granulation 3+; Toxic Vacuolation 1+
[2022-01-23] MEDS ORDERED: SODIUM CHLORIDE 0.9% 500 ML 500 ML IV NR (07:26)
--- NOTE | 2022-01-23 07:53 | Progress Note ---
Assessment and Plan Assessment and plan: #Normocytic anemia -Hgb 6.0/18.0 today; baseline ~7 -1 unit of pRBCs ordered today -repeat CBC -will transfuse for Hgb less than 7 #Hyponatremia -Sodium improved to 128 -likely secondary to prolonged free water administration -will continue to monitor #Sepsis -improving #COVID-19 infection #Pneumonia -T max 102.4, no other signs of sepsis; will continue to monitor -blood and urine cultures negative -s/p doxycycline and rocephin -s/p steroids; vitamins for COVID infection did not receive remdesivir due to kidney function #Acute respiratory failure with hypoxia-resolved -currently weaned to RA -continuous pulse ox -likely secondary to COVID PNA vs bacterial PNA #Acute metabolic encephalopathy-resolved #hx of Vascular dementia #Cerebral atherosclerosis -multifactorial; acute change likely secondary to infection -will continue to monitor #Acute kidney injury vs progressing CKD -Renal US showed medical renal disease -avoid nephrotoxins and will renally dose medications -Nephrology following, assistance appreciated -Initiated hemodialysis on 01/15/2022. Status post triple-lumen HD catheter replacement with permacath by vascular surgery. -HD chair declined due to diagnosis of acute kidney injury, will monitor for signs of recovery #Metabolic acidosis -secondary to renal failure #Dysphagia -Currently with PEG tube -continue tube feeds -Nutrition consult #Severe protein-calorie malnutrition -albumin 2.0 -continue TF, Nutrition managing #Sacral decubitus ulcer -Continue wound care #Discharge planning #Advance care planning -Patient to return to [facility], will discuss with NOK the issue with dialysis at this time and for further advance care planning History Interval history: No acute events overnight per nursing. Patient opens eyes to verbal stim ulation. Does not participate in interview. Hospitalist Physical - Physical exam Narrative exam: GENERAL: Cachexic. In no acute distress. HEENT:Dry mucus membranes NECK: RIJ Vasc cath, L catheter CHEST/LUNGS: CTAB on RA HEART/CARDIOVASCULAR: RRR. No murmur, rubs or gallops appreciated. ABDOMEN: PEG tube. +BS. NT/ND. NEURO: Unable to assess. MUSCULOSKELETAL: No joint effusion EXTREMITIES: No cyanosis, clubbing or edema. PSYCH: Cooperative. - Constitutional Vitals: Temp Pulse Resp BP Pulse Ox 102.4 F H 105 H 18 135/66 96 01/23/22 05:27 01/23/22 05:27 01/23/22 05:27 01/23/22 05:27 01/23/22 06:55 General appearance: Present: no acute distress, cachectic HEART Score - HEART Score Troponin: Troponin T 0.064 ng/mL (0.00-0.029) H 01/12/22 02:03 Results - Labs CBC & Chem 7: 01/23/22 04:46 01/23/22 04:46 Labs: Laboratory Last Values WBC 9.3 K/mm3 (4.5-11.0) 01/23/22 04:46 RBC 2.15 M/mm3 (3.65-5.03) L 01/23/22 04:46 Hgb 6.0 gm/dl (10.1-14.3) L 01/23/22 04:46 Hct 18.0 % (30.3-42.9) L* 01/23/22 04:46 MCV 84 fl (79-97) 01/23/22 04:46 MCH 28 pg (28-32) 01/23/22 04:46 MCHC 33 % (30-34) 01/23/22 04:46 RDW 15.8 % (13.2-15.2) H 01/23/22 04:46 Plt Count 182 K/mm3 (140-440) 01/23/22 04:46 Lymph % (Auto) Sewing Machine Operator Zipper 01/10/22 06:16 [place] % (Auto) Sewing Machine Operator Zipper 01/10/22 06:16 Eos % (Auto) Sewing Machine Operator Zipper 01/10/22 06:16 Baso % (Auto) Sewing Machine Operator Zipper 01/10/22 06:16 Lymph # (Auto) Sewing Machine Operator Zipper 01/10/22 06:16 [place] # (Auto) Sewing Machine Operator Zipper 01/10/22 06:16 Eos # (Auto) Sewing Machine Operator Zipper 01/10/22 06:16 Baso # (Auto) Sewing Machine Operator Zipper 01/10/22 06:16 Add Manual Diff Complete 01/23/22 04:46 Total Counted 100 01/23/22 04:46 Seg Neutrophils % Sewing Machine Operator Zipper 01/23/22 04:46 Seg Neuts % (Manual) 94.0 % (40.0-70.0) H 01/23/22 04:46 Band Neutrophils % 2.0 % 01/23/22 04:46 Lymphocytes % (Manual) 1.0 % (13.4-35.0) L 01/23/22 04:46 Reactive Lymphs % (Man) 0 % 01/23/22 04:46 Monocytes % (Manual) 2.0 % (0.0-7.3) 01/23/22 04:46 Eosinophils % (Manual) 0 % (0.0-4.3) 01/23/22 04:46 Basophils % (Manual) 1.0 % (0.0-1.8) 01/23/22 04:46 Metamyelocytes % 0 % 01/23/22 04:46 Myelocytes % 0 % 01/23/22 04:46 Promyelocytes % 0 % 01/23/22 04:46 Blast Cells % 0 % 01/23/22 04:46 Nucleated RBC % Not Reportable 01/23/22 04:46 Seg Neutrophils # Sewing Machine Operator Zipper 01/10/22 06:16 Seg Neutrophils # Man 8.7 K/mm3 (1.8-7.7) H 01/23/22 04:46 Band Neutrophils # 0.2 K/mm3 01/23/22 04:46 Lymphocytes # (Manual) 0.1 K/mm3 (1.2-5.4) L 01/23/22 04:46 Abs React Lymphs (Man) 0.0 K/mm3 01/23/22 04:46 Monocytes # (Manual) 0.2 K/mm3 (0.0-0.8) 01/23/22 04:46 Eosinophils # (Manual) 0.0 K/mm3 (0.0-0.4) 01/23/22 04:46 Basophils # (Manual) 0.1 K/mm3 (0.0-0.1) 01/23/22 04:46 Metamyelocytes # 0.0 K/mm3 01/23/22 04:46 Myelocytes # 0.0 K/mm3 01/23/22 04:46 Promyelocytes # 0.0 K/mm3 01/23/22 04:46 Blast Cells # 0.0 K/mm3 01/23/22 04:46 WBC Morphology Not Reportable 01/23/22 04:46 Hypersegmented Neuts Not Reportable 01/23/22 04:46 Hyposegmented Neuts Not Reportable 01/23/22 04:46 Hypogranular Neuts Not Reportable 01/23/22 04:46 Smudge Cells Not Reportable 01/23/22 04:46 Toxic Granulation 3+ 01/23/22 04:46 Toxic Vacuolation 1+ 01/23/22 04:46 Dohle Bodies Not Reportable 01/23/22 04:46 Pelger-Huet Anomaly Not Reportable 01/23/22 04:46 Lesley Rods Not Reportable 01/23/22 04:46 Platelet Estimate Consistent w auto 01/23/22 04:46 Clumped Platelets Not Reportable 01/23/22 04:46 Plt Clumps, EDTA Not Reportable 01/23/22 04:46 Large Platelets Not Reportable 01/23/22 04:46 Giant Platelets Not Reportable 01/23/22 04:46 Platelet Satelliting Not Reportable 01/23/22 04:46 Plt Morphology Comment Not Reportable 01/23/22 04:46 RBC Morphology Not Reportable 01/23/22 04:46 Dimorphic RBCs Not Reportable 01/23/22 04:46 Polychromasia Not Reportable 01/23/22 04:46 Hypochromasia 1+ 01/23/22 04:46 Poikilocytosis Not Reportable 01/23/22 04:46 Anisocytosis 1+ 01/23/22 04:46 Microcytosis Not Reportable 01/23/22 04:46 Macrocytosis Not Reportable 01/23/22 04:46 Spherocytes Not Reportable 01/23/22 04:46 Pappenheimer Bodies Not Reportable 01/23/22 04:46 Sickle Cells Not Reportable 01/23/22 04:46 Target Cells Not Reportable 01/23/22 04:46 Tear Drop Cells Not Reportable 01/23/22 04:46 Ovalocytes Not Reportable 01/23/22 04:46 Helmet Cells Not Reportable 01/23/22 04:46 [place] Bodies Not Reportable 01/23/22 04:46 [place] Rings Not Reportable 01/23/22 04:46 [place] Cells Not Reportable 01/23/22 04:46 Bite Cells Not Reportable 01/23/22 04:46 Crenated Cell Not Reportable 01/23/22 04:46 Elliptocytes Not Reportable 01/23/22 04:46 Acanthocytes (Spur) Not Reportable 01/23/22 04:46 Rouleaux Not Reportable 01/23/22 04:46 Hemoglobin C Crystals Not Reportable 01/23/22 04:46 Schistocytes Not Reportable 01/23/22 04:46 Malaria parasites Not Reportable 01/23/22 04:46 Artemio Bodies Not Reportable 01/23/22 04:46 Hem Pathologist Commnt No 01/23/22 04:46 APTT 29.2 Sec. (24.2-36.6) 01/09/22 12:50 D-Dimer 4886.79 ng/mlDDU (0-234) H 01/11/22 07:58 Sodium 128 mmol/L (137-145) L 01/23/22 04:46 Potassium 4.2 mmol/L (3.6-5.0) 01/23/22 04:46 Chloride 95.0 mmol/L (98-107) L 01/23/22 04:46 Carbon Dioxide 22 mmol/L (22-30) 01/23/22 04:46 Anion Gap 15 mmol/L 01/23/22 04:46 BUN 45 mg/dL (7-17) H 01/23/22 04:46 Creatinine 2.0 mg/dL (0.6-1.2) H 01/23/22 04:46 Estimated GFR 30 ml/min 01/23/22 04:46 BUN/Creatinine Ratio 23 % 01/23/22 04:46 Glucose 111 mg/dL (65-100) H 01/23/22 04:46 POC Glucose 119 mg/dL (70-105) H 01/23/22 05:30 Lactic Acid 1.40 mmol/L (0.7-2.0) 01/09/22 12:50 Calcium 7.2 mg/dL (8.4-10.2) L 01/23/22 04:46 Phosphorus 4.90 mg/dL (2.5-4.5) H 01/16/22 06:50 Magnesium 1.60 mg/dL (1.7-2.3) L 01/16/22 06:50 Ferritin 2182.0 ng/mL (10.0-200.0) H 01/11/22 07:58 Total Bilirubin 0.20 mg/dL (0.1-1.2) 01/09/22 12:50 Direct Bilirubin < 0.2 mg/dL (0-0.2) 01/09/22 12:50 Indirect Bilirubin 0.0 mg/dL 01/09/22 12:50 AST 75 units/L (5-40) H 01/09/22 12:50 ALT 31 units/L (7-56) 01/09/22 12:50 Alkaline Phosphatase 69 units/L (35-129) 01/09/22 12:50 Lactate Dehydrogenase 332 units/L (91-180) H 01/11/22 07:58 Troponin T 0.064 ng/mL (0.00-0.029) H 01/12/22 02:03 C-Reactive Protein 30.40 mg/dL (0.00-1.30) H 01/11/22 07:58 NT-Pro-B Natriuret Pep 608.7 pg/mL (0-900) 01/09/22 12:50 Total Protein 7.9 g/dL (6.3-8.2) 01/09/22 12:50 Albumin 2.0 g/dL (3.9-5) L 01/09/22 12:50 Albumin/Globulin Ratio 0.3 % 01/09/22 12:50 Triglycerides 442 mg/dL (2-149) H 01/12/22 02:03 Cholesterol 132 mg/dL (50-199) 01/12/22 02:03 LDL Cholesterol Direct TNR 01/12/22 02:03 HDL Cholesterol 14 mg/dL (40-59) L 01/12/22 02:03 Cholesterol/HDL Ratio 9.42 % 01/12/22 02:03 Procalcitonin > 200.00 ng/mL (<0.15) 01/11/22 07:58 Urine Color Yellow (Yellow) 01/09/22 13:52 Urine Turbidity Hazy (Clear) 01/09/22 13:52 Urine pH 6.0 (5.0-7.0) 01/09/22 13:52 Ur Specific [place] 1.020 (1.003-1.030) 01/09/22 13:52 Urine Protein 100 mg/dl mg/dL (Negative) 01/09/22 13:52 Urine Glucose (UA) Neg mg/dL (Negative) 01/09/22 13:52 Urine Ketones Neg mg/dL (Negative) 01/09/22 13:52 Urine Blood Neg (Negative) 01/09/22 13:52 Urine Nitrite Neg (Negative) 01/09/22 13:52 Urine Bilirubin Neg (Negative) 01/09/22 13:52 Urine Urobilinogen < 2.0 mg/dL (<2.0) 01/09/22 13:52 Ur Leukocyte Esterase Neg (Negative) 01/09/22 13:52 Urine WBC (Auto) 4.0 /HPF (0.0-6.0) 01/09/22 13:52 Urine RBC (Auto) 3.0 /HPF (0.0-6.0) 01/09/22 13:52 U Epithel Cells (Auto) 2.0 /HPF (0-13.0) 01/09/22 13:52 Urine Bacteria (Auto) 1+ /HPF (Negative) 01/09/22 13:52 Urine Mucus Few /HPF 01/09/22 13:52 Urine Creatinine 15.2 mg/dL (0.1-20.0) 01/21/22 18:37 C. difficile Tox (PCR) Negative (Negative) 01/16/22 10:30 Coronavirus (PCR) Negative (Negative) 01/16/22 Unknown Hepatitis A IgM Ab Non-reactive (NonReactive) 01/14/22 Unknown Hep Bs Antigen Non-reactive (Negative) 01/14/22 Unknown Hep B Core IgM Ab Non-reactive (NonReactive) 01/14/22 Unknown Hepatitis C Antibody Non-reactive (NonReactive) 01/14/22 Unknown Blood Type B POSITIVE 01/09/22 14:37 Antibody Screen Negative 01/09/22 14:37 Samuel/IV: Voiding Method Incontinent Active Medications - Current Medications Current Medications: Generic Name Dose Route Start Last Admin Trade Name Freq PRN Reason Stop Dose Admin Acetaminophen 650 mg 01/09/22 15:00 01/23/22 05:36 Acetaminophen 325 Mg Tab PO 650 mg Q4H PRN Administration Pain MILD(1-3)/Fever >100.5/RILEY Albuterol 2.5 mg 01/09/22 14:25 Albuterol 2.5 Mg/3 Ml Nebu IH Q4HRT PRN Shortness Of Breath Amlodipine Besylate 10 mg 01/19/22 12:00 01/22/22 13:16 Amlodipine 10 Mg Tab PO 10 mg QDAY JARROD Administration Lipase/Protease/Amylase 1 each 01/18/22 07:11 Lipase 10,500/Protease 25,000/Amylase 43,750 (Units) Dr Gant FEEDTUBE PRN PRN For Clogged Feeding Tube Ascorbic Acid 500 mg 01/09/22 22:00 01/22/22 22:44 Ascorbic Acid 500 Mg Tab PO 500 mg BID JARROD Administration Carvedilol 3.125 mg 01/12/22 12:00 01/22/22 22:44 Carvedilol 3.125 Mg Tab PO 3.125 mg BID JARROD Administration Cholecalciferol 1,000 unit 01/10/22 10:00 01/22/22 13:15 Cholecalciferol (Vit D3) 1000 Unit (25 Mcg) Tab PO 1,000 unit DAILY JARROD Administration Dextrose 0 ml 01/09/22 14:48 Dextrose 10% *Hypoglycemia IV PRN PRN Hypoglycemia Heparin Sodium (Porcine) 5,000 unit 01/09/22 22:00 01/22/22 22:45 Heparin 5,000 Unit/1 Ml Vial SUB-Q 5,000 unit Q12HR JARROD Administration Hydralazine HCl 10 mg 01/12/22 11:21 Hydralazine 20 Mg/1 Ml Inj IV Q4HR PRN Hypertension Hydromorphone HCl 0.25 mg 01/09/22 15:00 Hydromorphone 1 Mg/1 Ml Inj IV Q4H PRN Pain, Moderate (4-6) Hydromorphone HCl 0.5 mg 01/09/22 15:00 Hydromorphone 1 Mg/1 Ml Inj IV Q23H PRN Pain , Severe (7-10) Sodium Chloride 100 mls @ 999 mls/hr 01/15/22 09:08 Nacl 0.9% IV MYRNA PRN Hypotension Sodium Chloride 500 mls @ 0 mls/hr 01/23/22 07:26 Nacl 0.9% 500 Ml IV 01/24/22 07:25 ONCE NR As Directed Insulin Human Regular 0 units 01/15/22 18:00 01/23/22 05:56 Insulin Regular, Human 100 Units/1 Ml SUB-Q Not Given Q6H [facility] Protocol Losartan Potassium 50 mg 01/18/22 10:00 01/22/22 13:16 Losartan 50 Mg Tab PO 50 mg QDAY JARROD Administration Ondansetron HCl 4 mg 01/09/22 16:00 Ondansetron 4 Mg/2 Ml Inj IV Q8H PRN Nausea And Vomiting Oxycodone/Acetaminophen 1 tab 01/09/22 15:00 01/22/22 13:17 Oxycodone /Acetaminophen 5-325mg Tab PO 1 tab Q16H PRN Administration Pain, Moderate (4-6) Simple Syrup 15 ml 01/18/22 07:11 Simple Syrup 15 Ml FEEDTUBE PRN PRN Hypoglycemia Simple Syrup 30 ml 01/18/22 07:11 Simple Syrup 15 Ml FEEDTUBE PRN PRN Hypoglycemia Sodium Bicarbonate 325 mg 01/18/22 07:11 Sodium Bicarbonate 325 Mg Tab FEEDTUBE PRN PRN For Clogged Feeding Tube Sodium Chloride 10 ml 01/09/22 22:00 01/22/22 22:48 Sodium Chloride 0.9% 10 Ml Flush Syringe IV 10 ml BID JARROD Administration Sodium Chloride 10 ml 01/09/22 15:00 01/15/22 21:08 Sodium Chloride 0.9% 10 Ml Flush Syringe IV 10 ml PRN PRN Administration LINE FLUSH Zinc Sulfate 220 mg 01/09/22 22:00 01/22/22 22:44 Zinc Sulfate 220 Mg Cap PO 220 mg BID JARROD Administration Nutrition/Malnutrition Assess - Dietary Evaluation Nutrition/Malnutrition Findings: Nutrition Notes Start: 01/10/22 13:52 Freq: Status: Active Protocol: Document 01/18/22 10:33 FLOR (Rec: 01/18/22 10:50 FLOR [email or web address]) Nutrition Notes Initial or Follow up Reassessment Current Diagnosis Acute Kidney Injury,Decubitus( Pressure Ulcer),Sepsis, Respiratory Failure, Malnutrition Other Pertinent Diagnosis COVID-19/Pneumonia, Metabolic Acidosis, KELSIE/ATN, Dysphagia, Dementia... Current Diet TF-Nepro w/CARBSTEADY @ 30 ml/ hr (since L 01/18). Labs/Tests 01/17: CO2 20, BUN 97, Crea 2. 8, Glu 106. Pertinent Medications 01/18: Vit C, Vit D3, Dw5 1000 ml @ 125 ml/hr, ZnSO4, others nutritionally unremarkable. Height 5 ft 4 in Weight 48 kg [place] Body Weight (kg) 54.54 BMI 18.1 Weight change and time frame No body weight change reported in 9 days. Weight Status Underweight Subjective/Other Information RD consult for write/manage TF . Pt underwent procedure 01/17: Pemacath placement, well tolerated. TF resumed as previously prescribed. Pt medically cleared for Discharge. Percent of energy/protein needs met: Prescribed TF-Nepro w/ CARBSTEADY @ 30 ml/hr provides for energy/protein needs (1, 296 Kcal/58 g) during LOS, 77% Kcal; 100% AA. Burn Absent Trauma Absent GI Symptoms None Difficulty In Swallowing Food Allergy No Skin Integrity/Comment Sacral Decubitus Current % PO Other Minimum of two criteria Yes Energy Intake (severe) < or equal to 50% Estimated Energy Requirement > or equal to 5 days Body Fat Depletion Moderate depletion (severe) Protein-Calorie Malnutrition Severe #1 Nutrition Diagnosis Underweight Diagnosis Progress(for reassessment Continues documentation) Is patient on ventilator? No Is Patient Ambulatory and/or Out of Bed No REE-([facility]-confined to bed) 1223.568 Kcal/Kg value to use for calculation 35 Approximate Energy Requirements Using 1680 kcal/Kg Calculation Used for Recommendations Kcal/kg Additional Notes Protein: 1.2-1.5 g/Kg; 58-72 g /day. Fluids: 1 ml/Kcal, or as per MD. Nutrition Intervention Nutrition Support: Resume TF-Nepro w/CARBSTEADY @ 30 ml/hr. Flush: 130 ml water Q 4 hr, or as per MD. Kcal 1,296 Protein (gm) 58 Carbohydrates (gm) 116 Fat (gm) 69 Fluid (mL) 523 Fiber (gm) 9 % RDI: 77% Kcal; 100% AA. Goal #1 Provide at least 75% of energy /protein needs through Enteral Feeding during LOS. Goal #2 Maintain body weight within +/ -3% of admission body weight during LOS. Follow-Up By: 01/25/22 Additional Comments Continue monitoring TF tolerance and BM.
[2022-01-23] MEDS: ZINC SULFATE 220 MG CAP PO SCH ×2 (09:34→23:25)
[2022-01-23] MEDS: ASCORBIC ACID 500 MG TAB PO SCH ×2 (09:34→23:25)
[2022-01-23] MEDS: HEPARIN 5,000 UNIT/1 ML VIAL SUB-Q SCH ×2 (09:34→23:25)
[2022-01-23] MEDS: carvediloL 3.125 MG TAB PO SCH ×2 (09:35→23:30)
[2022-01-23] MEDS: CHOLECALCIFEROL (VIT D3) 1000 UNIT (25 mcg) TAB PO SCH (09:35)
--- NOTE | 2022-01-23 09:49 | Progress Note ---
Subjective Date of service: 01/23/22 Principal diagnosis: kelsie Interval history: Impression: * Acute kidney injury secondary to COVID related ATN * Azotemia secondary to multifactorial etiologies: KELSIE vs steroids * Hyponatremia * anemia * Acute hypoxic respiratory failure secondary to COVID 19 PNA * COVID 19 infection Plan: * plan to continue HD // and prn * Na better today * stopped free water and d5w * follow up lytes and crcl for signs of renal recovery * Appreciate permacath placement per vascular * stop any D5W for hydration, sodium is low, needs daily lytes * Steroids per primary team * Management of COVID 19 per primary team * Avoid potential nephrotoxins * Dose medications for renal function * Outpatient HD unit placement pending-- Subjective Interval history: No acute events noted, patient resting in bed. Chart/vitals/labs reviewed in detail Objective exam deferred for preservation of PPE Objective - Vital Signs Vital signs: Vital Signs - 12hr 01/22/22 01/22/22 01/22/22 22:00 22:27 22:35 Temperature 98.2 F 100.0 F H Pulse Rate 100 H Respiratory 20 18 18 Rate Blood Pressure 153/72 O2 Sat by Pulse 95 99 Oximetry 01/22/22 01/23/22 01/23/22 22:44 05:27 06:55 Temperature 102.4 F H Pulse Rate 100 H 105 H Respiratory 18 Rate Blood Pressure 153/72 135/66 O2 Sat by Pulse 94 96 Oximetry 01/23/22 09:35 Temperature Pulse Rate 97 H Respiratory Rate Blood Pressure 116/55 O2 Sat by Pulse Oximetry - Lab 01/23/22 04:46 01/23/22 04:46 Most recent lab results Calcium 7.2 mg/dL (8.4-10.2) L 01/23/22 04:46 Phosphorus 4.90 mg/dL (2.5-4.5) H 01/16/22 06:50 Magnesium 1.60 mg/dL (1.7-2.3) L 01/16/22 06:50 Urine Creatinine 15.2 mg/dL (0.1-20.0) 01/21/22 18:37 Medications & Allergies - Medications Allergies/Adverse Reactions: Allergies No Known Allergies Allergy (Verified 01/09/22 11:43) Home Medications: Home Medications Medication Instructions Recorded Confirmed Last Taken Type amLODIPine 10 mg PO QDAY #30 tablet 03/09/21 01/09/22 Unknown Rx carvediloL [Coreg] 3.125 mg PO BID #60 tablet 03/09/21 01/09/22 Unknown Rx Cholecalciferol Vit D3 [Vitamin D3 1,000 unit PO DAILY #30 tablet 01/16/22 Unknown Rx 1,000 UNIT TAB] Losartan [Cozaar] 50 mg PO QDAY #30 tablet 01/18/22 Unknown Rx NIFEdipine XL [Procardia Xl] 30 mg PO QDAY #30 tablet 01/18/22 Unknown Rx Active Medications: Generic Name Dose Route Start Last Admin Trade Name Freq PRN Reason Stop Dose Admin Acetaminophen 650 mg 01/09/22 15:00 01/23/22 05:36 Acetaminophen 325 Mg Tab PO 650 mg Q4H PRN Administration Pain MILD(1-3)/Fever >100.5/RILEY Albuterol 2.5 mg 01/09/22 14:25 Albuterol 2.5 Mg/3 Ml Nebu IH Q4HRT PRN Shortness Of Breath Amlodipine Besylate 10 mg 01/19/22 12:00 01/22/22 13:16 Amlodipine 10 Mg Tab PO 10 mg QDAY JARROD Administration Lipase/Protease/Amylase 1 each 01/18/22 07:11 Lipase 10,500/Protease 25,000/Amylase 43,750 (Units) Dr Stalin SIERRATUBE PRN PRN For Clogged Feeding Tube Ascorbic Acid 500 mg 01/09/22 22:00 01/23/22 09:34 Ascorbic Acid 500 Mg Tab PO 500 mg BID JARROD Administration Carvedilol 3.125 mg 01/12/22 12:00 01/23/22 09:35 Carvedilol 3.125 Mg Tab PO 3.125 mg BID JARROD Administration Cholecalciferol 1,000 unit 01/10/22 10:00 01/23/22 09:35 Cholecalciferol (Vit D3) 1000 Unit (25 Mcg) Tab PO 1,000 unit DAILY JARROD Administration Dextrose 0 ml 01/09/22 14:48 Dextrose 10% *Hypoglycemia IV PRN PRN Hypoglycemia Heparin Sodium (Porcine) 5,000 unit 01/09/22 22:00 01/23/22 09:34 Heparin 5,000 Unit/1 Ml Vial SUB-Q 5,000 unit Q12HR JARROD Administration Hydralazine HCl 10 mg 01/12/22 11:21 Hydralazine 20 Mg/1 Ml Inj IV Q4HR PRN Hypertension Hydromorphone HCl 0.25 mg 01/09/22 15:00 Hydromorphone 1 Mg/1 Ml Inj IV Q4H PRN Pain, Moderate (4-6) Hydromorphone HCl 0.5 mg 01/09/22 15:00 Hydromorphone 1 Mg/1 Ml Inj IV Q23H PRN Pain , Severe (7-10) Sodium Chloride 100 mls @ 999 mls/hr 01/15/22 09:08 Nacl 0.9% IV MYRNA PRN Hypotension Sodium Chloride 500 mls @ 0 mls/hr 01/23/22 07:26 Nacl 0.9% 500 Ml IV 01/24/22 07:25 ONCE NR As Directed Insulin Human Regular 0 units 01/15/22 18:00 01/23/22 05:56 Insulin Regular, Human 100 Units/1 Ml SUB-Q Not Given Q6H [facility] Protocol Losartan Potassium 50 mg 01/18/22 10:00 01/22/22 13:16 Losartan 50 Mg Tab PO 50 mg QDAY JARROD Administration Ondansetron HCl 4 mg 01/09/22 16:00 Ondansetron 4 Mg/2 Ml Inj IV Q8H PRN Nausea And Vomiting Oxycodone/Acetaminophen 1 tab 01/09/22 15:00 01/22/22 13:17 Oxycodone /Acetaminophen 5-325mg Tab PO 1 tab Q16H PRN Administration Pain, Moderate (4-6) Simple Syrup 15 ml 01/18/22 07:11 Simple Syrup 15 Ml FEEDTUBE PRN PRN Hypoglycemia Simple Syrup 30 ml 01/18/22 07:11 Simple Syrup 15 Ml FEEDTUBE PRN PRN Hypoglycemia Sodium Bicarbonate 325 mg 01/18/22 07:11 Sodium Bicarbonate 325 Mg Tab FEEDTUBE PRN PRN For Clogged Feeding Tube Sodium Chloride 10 ml 01/09/22 22:00 01/23/22 09:36 Sodium Chloride 0.9% 10 Ml Flush Syringe IV 10 ml BID JARROD Administration Sodium Chloride 10 ml 01/09/22 15:00 01/15/22 21:08 Sodium Chloride 0.9% 10 Ml Flush Syringe IV 10 ml PRN PRN Administration LINE FLUSH Zinc Sulfate 220 mg 01/09/22 22:00 01/23/22 09:34 Zinc Sulfate 220 Mg Cap PO 220 mg BID JARROD Administration
[2022-01-23] MEDS: LOSARTAN 50 MG TAB PO SCH (12:20)
[2022-01-23] MEDS: amLODIPine 10 MG TAB PO SCH (12:20)
--- NOTE | 2022-01-23 23:00 | Event Note ---
Date: 01/23/22 I had a family discussion via telephone with the patient's daughters Bo ([phone]) & Ananya Galvan ([phone]). Both were updated about the patient's current clinical status and her denial for an outpatient dialysis chair. It was explained to them that she would need the dialysis to survive at this point. We would either keep her inpatient until we find an outpatient chair for her or until she no longer needs dialysis. He had a discussion about end-of-life care for the patient, they have come to terms with her functional decline and prognosis. They opted to make the patient DNR/DNI. Hospice care was also discussed. They would like more time to come to a final conclusion about discharging the patient on hospice. AMD/DNR paperwork was filled out and placed on the chart with JARON Hwang as a witness.
[2022-01-24] MEDS: INSULIN REGULAR, HUMAN 100 UNITS/1 ML SUB-Q SCH ×4 (04:23→18:28)
[2022-01-24 05:43] LABS: Hematocrit 20.8 % (30.3-42.9); Hemoglobin 7.2 gm/dl (10.1-14.3); Mean Corpuscular HGB Conc 35 % (30-34); Mean Corpuscular Volume 84 fl (79-97); Platelet Count 196 K/mm3 (140-440); Red Blood Count 2.49 M/mm3 (3.65-5.03); Red Cell Distribution Width 15.1 % (13.2-15.2)
[2022-01-24 06:06] LABS: Calcium 7.5 mg/dL (8.4-10.2)
[2022-01-24 06:49] LABS: Basophils % (Manual) 0 % (0.0-1.8); Eosinophils % (Manual) 0 % (0.0-4.3); Total Cells Counted 100
[2022-01-24 06:50] LABS: Anisocytosis 1+; Platelet Clumps Rare; Platelet Estimate Consistent w Auto; Toxic Granulation 3+; Toxic Vacuolation 1+
[2022-01-24 06:51] LABS: Hypochromasia 1+
--- NOTE | 2022-01-24 07:44 | Progress Note ---
Assessment and Plan Assessment and plan: #Normocytic anemia -Hgb improved to 7.2 post transfusion -will transfuse for Hgb less than 7 #Hyponatremia -Sodium improved to 130 -likely secondary to prolonged free water administration -will continue to monitor #Sepsis -improving #COVID-19 infection #Pneumonia -afebrile x24hrs, no other signs of sepsis; will continue to monitor -blood and urine cultures negative -s/p doxycycline and rocephin -s/p steroids; vitamins for COVID infection did not receive remdesivir due to kidney function #Acute respiratory failure with hypoxia-resolved -currently weaned to RA -continuous pulse ox -likely secondary to COVID PNA vs bacterial PNA #Acute metabolic encephalopathy-resolved #hx of Vascular dementia #Cerebral atherosclerosis -multifactorial; acute change likely secondary to infection -will continue to monitor #Acute kidney injury vs progressing CKD -Renal US showed medical renal disease -avoid nephrotoxins and will renally dose medications -Nephrology following, assistance appreciated -Initiated hemodialysis on 01/15/2022. Status post triple-lumen HD catheter replacement with permacath by vascular surgery. -HD chair declined due to diagnosis of acute kidney injury, will monitor for signs of recovery #Metabolic acidosis -secondary to renal failure #Dysphagia -Currently with PEG tube -continue tube feeds -Nutrition consult #Severe protein-calorie malnutrition -albumin 2.0 -continue TF, Nutrition managing #Sacral decubitus ulcer -Continue wound care #Discharge planning -Patient to return to [facility] once family makes a decision about dialysis if patient needs it. #Advance care planning -Disease education, care plan, diagnosis, prognosis discussed with next of kin. Family understands and acknowledges current plan. Discussed with NOK the issue with dialysis at this time, decision was made to make the patient AND/DNR. They are contemplating the possibility of hospice care. -Time: +30 minutes History Interval history: No acute events overnight per nursing. Patient opens eyes to verbal stimulation. No complaints at this time. Hospitalist Physical - Physical exam Narrative exam: GENERAL: Cachexic. In no acute distress. HEENT:Dry mucus membranes NECK: RIJ Vasc cath, L catheter CHEST/LUNGS: CTAB on RA HEART/CARDIOVASCULAR: RRR. No murmur, rubs or gallops appreciated. ABDOMEN: PEG tube. +BS. NT/ND. NEURO: Unable to assess. MUSCULOSKELETAL: No joint effusion EXTREMITIES: No cyanosis, clubbing or edema. PSYCH: Cooperative. - Constitutional Vitals: Temp Pulse Resp BP Pulse Ox 99.3 F 89 18 133/59 97 01/24/22 05:40 01/24/22 05:40 01/24/22 05:40 01/24/22 05:40 01/24/22 05:40 General appearance: Present: no acute distress, cachectic HEART Score - HEART Score Troponin: Troponin T 0.064 ng/mL (0.00-0.029) H 01/12/22 02:03 Results - Labs CBC & Chem 7: 01/24/22 05:30 01/24/22 05:30 Labs: Laboratory Last Values WBC 9.7 K/mm3 (4.5-11.0) 01/24/22 05:30 RBC 2.49 M/mm3 (3.65-5.03) L 01/24/22 05:30 Hgb 7.2 gm/dl (10.1-14.3) L 01/24/22 05:30 Hct 20.8 % (30.3-42.9) L 01/24/22 05:30 MCV 84 fl (79-97) 01/24/22 05:30 MCH 29 pg (28-32) 01/24/22 05:30 MCHC 35 % (30-34) H 01/24/22 05:30 RDW 15.1 % (13.2-15.2) 01/24/22 05:30 Plt Count 196 K/mm3 (140-440) 01/24/22 05:30 Lymph % (Auto) Modeling Analyst 01/10/22 06:16 [place] % (Auto) Modeling Analyst 01/10/22 06:16 Eos % (Auto) Modeling Analyst 01/10/22 06:16 Baso % (Auto) Modeling Analyst 01/10/22 06:16 Lymph # (Auto) Modeling Analyst 01/10/22 06:16 [place] # (Auto) Modeling Analyst 01/10/22 06:16 Eos # (Auto) Modeling Analyst 01/10/22 06:16 Baso # (Auto) Modeling Analyst 01/10/22 06:16 Add Manual Diff Complete 01/24/22 05:30 Total Counted 100 01/24/22 05:30 Seg Neutrophils % Modeling Analyst 01/24/22 05:30 Seg Neuts % (Manual) 97.0 % (40.0-70.0) H 01/24/22 05:30 Band Neutrophils % 0 % 01/24/22 05:30 Lymphocytes % (Manual) 1.0 % (13.4-35.0) L 01/24/22 05:30 Reactive Lymphs % (Man) 0 % 01/24/22 05:30 Monocytes % (Manual) 2.0 % (0.0-7.3) 01/24/22 05:30 Eosinophils % (Manual) 0 % (0.0-4.3) 01/24/22 05:30 Basophils % (Manual) 0 % (0.0-1.8) 01/24/22 05:30 Metamyelocytes % 0 % 01/24/22 05:30 Myelocytes % 0 % 01/24/22 05:30 Promyelocytes % 0 % 01/24/22 05:30 Blast Cells % 0 % 01/24/22 05:30 Nucleated RBC % Not Reportable 01/24/22 05:30 Seg Neutrophils # Modeling Analyst 01/10/22 06:16 Seg Neutrophils # Man 9.4 K/mm3 (1.8-7.7) H 01/24/22 05:30 Band Neutrophils # 0.0 K/mm3 01/24/22 05:30 Lymphocytes # (Manual) 0.1 K/mm3 (1.2-5.4) L 01/24/22 05:30 Abs React Lymphs (Man) 0.0 K/mm3 01/24/22 05:30 Monocytes # (Manual) 0.2 K/mm3 (0.0-0.8) 01/24/22 05:30 Eosinophils # (Manual) 0.0 K/mm3 (0.0-0.4) 01/24/22 05:30 Basophils # (Manual) 0.0 K/mm3 (0.0-0.1) 01/24/22 05:30 Metamyelocytes # 0.0 K/mm3 01/24/22 05:30 Myelocytes # 0.0 K/mm3 01/24/22 05:30 Promyelocytes # 0.0 K/mm3 01/24/22 05:30 Blast Cells # 0.0 K/mm3 01/24/22 05:30 WBC Morphology Not Reportable 01/24/22 05:30 Hypersegmented Neuts Not Reportable 01/24/22 05:30 Hyposegmented Neuts Not Reportable 01/24/22 05:30 Hypogranular Neuts Not Reportable 01/24/22 05:30 Smudge Cells Not Reportable 01/24/22 05:30 Toxic Granulation 3+ 01/24/22 05:30 Toxic Vacuolation 1+ 01/24/22 05:30 Dohle Bodies Not Reportable 01/24/22 05:30 Pelger-Huet Anomaly Not Reportable 01/24/22 05:30 Lesley Rods Not Reportable 01/24/22 05:30 Platelet Estimate Consistent w auto 01/24/22 05:30 Clumped Platelets Rare 01/24/22 05:30 Plt Clumps, EDTA Not Reportable 01/24/22 05:30 Large Platelets Not Reportable 01/24/22 05:30 Giant Platelets Not Reportable 01/24/22 05:30 Platelet Satelliting Not Reportable 01/24/22 05:30 Plt Morphology Comment Not Reportable 01/24/22 05:30 RBC Morphology Not Reportable 01/24/22 05:30 Dimorphic RBCs Not Reportable 01/24/22 05:30 Polychromasia Not Reportable 01/24/22 05:30 Hypochromasia 1+ 01/24/22 05:30 Poikilocytosis Not Reportable 01/24/22 05:30 Anisocytosis 1+ 01/24/22 05:30 Microcytosis Not Reportable 01/24/22 05:30 Macrocytosis Not Reportable 01/24/22 05:30 Spherocytes Not Reportable 01/24/22 05:30 Pappenheimer Bodies Not Reportable 01/24/22 05:30 Sickle Cells Not Reportable 01/24/22 05:30 Target Cells Not Reportable 01/24/22 05:30 Tear Drop Cells Not Reportable 01/24/22 05:30 Ovalocytes Not Reportable 01/24/22 05:30 Helmet Cells Not Reportable 01/24/22 05:30 [place] Bodies Not Reportable 01/24/22 05:30 [place] Rings Not Reportable 01/24/22 05:30 [place] Cells Not Reportable 01/24/22 05:30 Bite Cells Not Reportable 01/24/22 05:30 Crenated Cell Not Reportable 01/24/22 05:30 Elliptocytes Not Reportable 01/24/22 05:30 Acanthocytes (Spur) Not Reportable 01/24/22 05:30 Rouleaux Not Reportable 01/24/22 05:30 Hemoglobin C Crystals Not Reportable 01/24/22 05:30 Schistocytes Not Reportable 01/24/22 05:30 Malaria parasites Not Reportable 01/24/22 05:30 [place] Bodies Not Reportable 01/24/22 05:30 Hem Pathologist Commnt No 01/24/22 05:30 APTT 29.2 Sec. (24.2-36.6) 01/09/22 12:50 D-Dimer 4886.79 ng/mlDDU (0-234) H 01/11/22 07:58 Sodium 130 mmol/L (137-145) L 01/24/22 05:30 Potassium 4.0 mmol/L (3.6-5.0) 01/24/22 05:30 Chloride 96.4 mmol/L (98-107) L 01/24/22 05:30 Carbon Dioxide 22 mmol/L (22-30) 01/24/22 05:30 Anion Gap 16 mmol/L 01/24/22 05:30 BUN 53 mg/dL (7-17) H 01/24/22 05:30 Creatinine 2.3 mg/dL (0.6-1.2) H 01/24/22 05:30 Estimated GFR 26 ml/min 01/24/22 05:30 BUN/Creatinine Ratio 23 % 01/24/22 05:30 Glucose 130 mg/dL (65-100) H 01/24/22 05:30 POC Glucose 116 mg/dL (70-105) H 01/24/22 05:43 Lactic Acid 1.40 mmol/L (0.7-2.0) 01/09/22 12:50 Calcium 7.5 mg/dL (8.4-10.2) L 01/24/22 05:30 Phosphorus 4.90 mg/dL (2.5-4.5) H 01/16/22 06:50 Magnesium 1.60 mg/dL (1.7-2.3) L 01/16/22 06:50 Ferritin 2182.0 ng/mL (10.0-200.0) H 01/11/22 07:58 Total Bilirubin 0.20 mg/dL (0.1-1.2) 01/09/22 12:50 Direct Bilirubin < 0.2 mg/dL (0-0.2) 01/09/22 12:50 Indirect Bilirubin 0.0 mg/dL 01/09/22 12:50 AST 75 units/L (5-40) H 01/09/22 12:50 ALT 31 units/L (7-56) 01/09/22 12:50 Alkaline Phosphatase 69 units/L (35-129) 01/09/22 12:50 Lactate Dehydrogenase 332 units/L (91-180) H 01/11/22 07:58 Troponin T 0.064 ng/mL (0.00-0.029) H 01/12/22 02:03 C-Reactive Protein 30.40 mg/dL (0.00-1.30) H 01/11/22 07:58 NT-Pro-B Natriuret Pep 608.7 pg/mL (0-900) 01/09/22 12:50 Total Protein 7.9 g/dL (6.3-8.2) 01/09/22 12:50 Albumin 2.0 g/dL (3.9-5) L 01/09/22 12:50 Albumin/Globulin Ratio 0.3 % 01/09/22 12:50 Triglycerides 442 mg/dL (2-149) H 01/12/22 02:03 Cholesterol 132 mg/dL (50-199) 01/12/22 02:03 LDL Cholesterol Direct TNR 01/12/22 02:03 HDL Cholesterol 14 mg/dL (40-59) L 01/12/22 02:03 Cholesterol/HDL Ratio 9.42 % 01/12/22 02:03 Procalcitonin > 200.00 ng/mL (<0.15) 01/11/22 07:58 Urine Color Yellow (Yellow) 01/09/22 13:52 Urine Turbidity Hazy (Clear) 01/09/22 13:52 Urine pH 6.0 (5.0-7.0) 01/09/22 13:52 Ur Specific [place] 1.020 (1.003-1.030) 01/09/22 13:52 Urine Protein 100 mg/dl mg/dL (Negative) 01/09/22 13:52 Urine Glucose (UA) Neg mg/dL (Negative) 01/09/22 13:52 Urine Ketones Neg mg/dL (Negative) 01/09/22 13:52 Urine Blood Neg (Negative) 01/09/22 13:52 Urine Nitrite Neg (Negative) 01/09/22 13:52 Urine Bilirubin Neg (Negative) 01/09/22 13:52 Urine Urobilinogen < 2.0 mg/dL (<2.0) 01/09/22 13:52 Ur Leukocyte Esterase Neg (Negative) 01/09/22 13:52 Urine WBC (Auto) 4.0 /HPF (0.0-6.0) 01/09/22 13:52 Urine RBC (Auto) 3.0 /HPF (0.0-6.0) 01/09/22 13:52 U Epithel Cells (Auto) 2.0 /HPF (0-13.0) 01/09/22 13:52 Urine Bacteria (Auto) 1+ /HPF (Negative) 01/09/22 13:52 Urine Mucus Few /HPF 01/09/22 13:52 Urine Creatinine 15.2 mg/dL (0.1-20.0) 01/21/22 18:37 C. difficile Tox (PCR) Negative (Negative) 01/16/22 10:30 Coronavirus (PCR) Negative (Negative) 01/16/22 Unknown Hepatitis A IgM Ab Non-reactive (NonReactive) 01/14/22 Unknown Hep Bs Antigen Non-reactive (Negative) 01/14/22 Unknown Hep B Core IgM Ab Non-reactive (NonReactive) 01/14/22 Unknown Hepatitis C Antibody Non-reactive (NonReactive) 01/14/22 Unknown Blood Type B POSITIVE 01/23/22 07:26 Antibody Screen Negative 01/23/22 07:26 Crossmatch See Detail 01/23/22 07:26 Samuel/IV: Voiding Method External Female Catheter Active Medications - Current Medications Current Medications: Generic Name Dose Route Start Last Admin Trade Name Freq PRN Reason Stop Dose Admin Acetaminophen 650 mg 01/09/22 15:00 01/23/22 12:59 Acetaminophen 325 Mg Tab PO 650 mg Q4H PRN Administration Pain MILD(1-3)/Fever >100.5/RILEY Albuterol 2.5 mg 01/09/22 14:25 Albuterol 2.5 Mg/3 Ml Nebu IH Q4HRT PRN Shortness Of Breath Amlodipine Besylate 10 mg 01/19/22 12:00 01/23/22 12:20 Amlodipine 10 Mg Tab PO 10 mg QDAY JARROD Administration Lipase/Protease/Amylase 1 each 01/18/22 07:11 Lipase 10,500/Protease 25,000/Amylase 43,750 (Units) Dr Gant FEEDTUBE PRN PRN For Clogged Feeding Tube Ascorbic Acid 500 mg 01/09/22 22:00 01/23/22 23:25 Ascorbic Acid 500 Mg Tab PO 500 mg BID JARROD Administration Carvedilol 3.125 mg 01/12/22 12:00 01/23/22 23:30 Carvedilol 3.125 Mg Tab PO 3.125 mg BID JARROD Administration Cholecalciferol 1,000 unit 01/10/22 10:00 01/23/22 09:35 Cholecalciferol (Vit D3) 1000 Unit (25 Mcg) Tab PO 1,000 unit DAILY JARROD Administration Dextrose 0 ml 01/09/22 14:48 Dextrose 10% *Hypoglycemia IV PRN PRN Hypoglycemia Heparin Sodium (Porcine) 5,000 unit 01/09/22 22:00 01/23/22 23:25 Heparin 5,000 Unit/1 Ml Vial SUB-Q 5,000 unit Q12HR JARROD Administration Hydralazine HCl 10 mg 01/12/22 11:21 Hydralazine 20 Mg/1 Ml Inj IV Q4HR PRN Hypertension Hydromorphone HCl 0.25 mg 01/09/22 15:00 Hydromorphone 1 Mg/1 Ml Inj IV Q4H PRN Pain, Moderate (4-6) Hydromorphone HCl 0.5 mg 01/09/22 15:00 Hydromorphone 1 Mg/1 Ml Inj IV Q23H PRN Pain , Severe (7-10) Sodium Chloride 100 mls @ 999 mls/hr 01/15/22 09:08 Nacl 0.9% IV MYRNA PRN Hypotension Insulin Human Regular 0 units 01/15/22 18:00 01/24/22 04:23 Insulin Regular, Human 100 Units/1 Ml SUB-Q Not Given Q6H [facility] Protocol Losartan Potassium 50 mg 01/18/22 10:00 01/23/22 12:20 Losartan 50 Mg Tab PO 50 mg QDAY JARROD Administration Ondansetron HCl 4 mg 01/09/22 16:00 Ondansetron 4 Mg/2 Ml Inj IV Q8H PRN Nausea And Vomiting Oxycodone/Acetaminophen 1 tab 01/09/22 15:00 01/22/22 13:17 Oxycodone /Acetaminophen 5-325mg Tab PO 1 tab Q16H PRN Administration Pain, Moderate (4-6) Simple Syrup 15 ml 01/18/22 07:11 Simple Syrup 15 Ml FEEDTUBE PRN PRN Hypoglycemia Simple Syrup 30 ml 01/18/22 07:11 Simple Syrup 15 Ml FEEDTUBE PRN PRN Hypoglycemia Sodium Bicarbonate 325 mg 01/18/22 07:11 Sodium Bicarbonate 325 Mg Tab FEEDTUBE PRN PRN For Clogged Feeding Tube Sodium Chloride 10 ml 01/09/22 22:00 01/23/22 23:26 Sodium Chloride 0.9% 10 Ml Flush Syringe IV 10 ml BID JARROD Administration Sodium Chloride 10 ml 01/09/22 15:00 01/15/22 21:08 Sodium Chloride 0.9% 10 Ml Flush Syringe IV 10 ml PRN PRN Administration LINE FLUSH Zinc Sulfate 220 mg 01/09/22 22:00 01/23/22 23:25 Zinc Sulfate 220 Mg Cap PO 220 mg BID JARROD Administration Nutrition/Malnutrition Assess - Dietary Evaluation Nutrition/Malnutrition Findings: Nutrition Notes Start: 01/10/22 13:52 Freq: Status: Active Protocol: Document 01/18/22 10:33 FLOR (Rec: 01/18/22 10:50 FLOR [id number]) Nutrition Notes Initial or Follow up Reassessment Current Diagnosis Acute Kidney Injury,Decubitus( Pressure Ulcer),Sepsis, Respiratory Failure, Malnutrition Other Pertinent Diagnosis COVID-19/Pneumonia, Metabolic Acidosis, KELSIE/ATN, Dysphagia, Dementia... Current Diet TF-Nepro w/CARBSTEADY @ 30 ml/ hr (since L 01/18). Labs/Tests 01/17: CO2 20, BUN 97, Crea 2. 8, Glu 106. Pertinent Medications 01/18: Vit C, Vit D3, Dw5 1000 ml @ 125 ml/hr, ZnSO4, others nutritionally unremarkable. Height 5 ft 4 in Weight 48 kg [place] Body Weight (kg) 54.54 BMI 18.1 Weight change and time frame No body weight change reported in 9 days. Weight Status Underweight Subjective/Other Information RD consult for write/manage TF . Pt underwent procedure 01/17: Pemacath placement, well tolerated. TF resumed as previously prescribed. Pt medically cleared for Discharge. Percent of energy/protein needs met: Prescribed TF-Nepro w/ CARBSTEADY @ 30 ml/hr provides for energy/protein needs (1, 296 Kcal/58 g) during LOS, 77% Kcal; 100% AA. Burn Absent Trauma Absent GI Symptoms None Difficulty In Swallowing Food Allergy No Skin Integrity/Comment Sacral Decubitus Current % PO Other Minimum of two criteria Yes Energy Intake (severe) < or equal to 50% Estimated Energy Requirement > or equal to 5 days Body Fat Depletion Moderate depletion (severe) Protein-Calorie Malnutrition Severe #1 Nutrition Diagnosis Underweight Diagnosis Progress(for reassessment Continues documentation) Is patient on ventilator? No Is Patient Ambulatory and/or Out of Bed No REE-([place]-St. Jeor-confined to bed) 1223.568 Kcal/Kg value to use for calculation 35 Approximate Energy Requirements Using 1680 kcal/Kg Calculation Used for Recommendations Kcal/kg Additional Notes Protein: 1.2-1.5 g/Kg; 58-72 g /day. Fluids: 1 ml/Kcal, or as per MD. Nutrition Intervention Nutrition Support: Resume TF-Nepro w/CARBSTEADY @ 30 ml/hr. Flush: 130 ml water Q 4 hr, or as per MD. Kcal 1,296 Protein (gm) 58 Carbohydrates (gm) 116 Fat (gm) 69 Fluid (mL) 523 Fiber (gm) 9 % RDI: 77% Kcal; 100% AA. Goal #1 Provide at least 75% of energy /protein needs through Enteral Feeding during LOS. Goal #2 Maintain body weight within +/ -3% of admission body weight during LOS. Follow-Up By: 01/25/22 Additional Comments Continue monitoring TF tolerance and BM.
[2022-01-24] MEDS: ZINC SULFATE 220 MG CAP PO SCH ×2 (09:32→23:12)
[2022-01-24] MEDS: carvediloL 3.125 MG TAB PO SCH ×2 (09:32→23:12)
[2022-01-24] MEDS: amLODIPine 10 MG TAB PO SCH (09:32)
[2022-01-24] MEDS: CHOLECALCIFEROL (VIT D3) 1000 UNIT (25 mcg) TAB PO SCH (09:32)
[2022-01-24] MEDS: LOSARTAN 50 MG TAB PO SCH (09:33)
[2022-01-24] MEDS: ASCORBIC ACID 500 MG TAB PO SCH ×2 (09:33→23:12)
[2022-01-24] MEDS: HEPARIN 5,000 UNIT/1 ML VIAL SUB-Q SCH ×2 (09:52→23:13)
--- NOTE | 2022-01-24 12:01 | Progress Note ---
Subjective Date of service: 01/24/22 Principal diagnosis: kelsie Interval history: Impression: * Acute kidney injury secondary to COVID related ATN * Azotemia secondary to multifactorial etiologies: KELSIE vs steroids * Hyponatremia * anemia * Acute hypoxic respiratory failure secondary to COVID 19 PNA * COVID 19 infection Plan: * plan to continue HD // and prn * Na better today * stopped free water and d5w * follow up lytes and crcl for signs of renal recovery * Appreciate permacath placement per vascular * stop any D5W for hydration, sodium is low, needs daily lytes * Steroids per primary team * Management of COVID 19 per primary team * Avoid potential nephrotoxins * Dose medications for renal function * Outpatient HD unit placement pending-- Subjective Interval history: No acute events noted, patient resting in bed. Chart/vitals/labs reviewed in detail Objective exam deferred for preservation of PPE Objective - Vital Signs Vital signs: Vital Signs - 12hr 01/24/22 01/24/22 01/24/22 05:40 09:32 09:33 Temperature 99.3 F Pulse Rate 89 93 H 93 H Respiratory 18 Rate Blood Pressure 133/59 124/58 124/58 O2 Sat by Pulse 97 Oximetry - Lab 01/24/22 05:30 01/24/22 05:30 Most recent lab results Calcium 7.5 mg/dL (8.4-10.2) L 01/24/22 05:30 Phosphorus 4.90 mg/dL (2.5-4.5) H 01/16/22 06:50 Magnesium 1.60 mg/dL (1.7-2.3) L 01/16/22 06:50 Urine Creatinine 15.2 mg/dL (0.1-20.0) 01/21/22 18:37 Medications & Allergies - Medications Allergies/Adverse Reactions: Allergies No Known Allergies Allergy (Verified 01/09/22 11:43) Home Medications: Home Medications Medication Instructions Recorded Confirmed Last Taken Type amLODIPine 10 mg PO QDAY #30 tablet 03/09/21 01/09/22 Unknown Rx carvediloL [Coreg] 3.125 mg PO BID #60 tablet 03/09/21 01/09/22 Unknown Rx Cholecalciferol Vit D3 [Vitamin D3 1,000 unit PO DAILY #30 tablet 01/16/22 Unknown Rx 1,000 UNIT TAB] Losartan [Cozaar] 50 mg PO QDAY #30 tablet 01/18/22 Unknown Rx NIFEdipine XL [Procardia Xl] 30 mg PO QDAY #30 tablet 01/18/22 Unknown Rx Active Medications: Generic Name Dose Route Start Last Admin Trade Name Freq PRN Reason Stop Dose Admin Acetaminophen 650 mg 01/09/22 15:00 01/23/22 12:59 Acetaminophen 325 Mg Tab PO 650 mg Q4H PRN Administration Pain MILD(1-3)/Fever >100.5/RILEY Albuterol 2.5 mg 01/09/22 14:25 Albuterol 2.5 Mg/3 Ml Nebu IH Q4HRT PRN Shortness Of Breath Amlodipine Besylate 10 mg 01/19/22 12:00 01/24/22 09:32 Amlodipine 10 Mg Tab PO 10 mg QDAY JARROD Administration Lipase/Protease/Amylase 1 each 01/18/22 07:11 Lipase 10,500/Protease 25,000/Amylase 43,750 (Units) Dr Gant FEEDTUBE PRN PRN For Clogged Feeding Tube Ascorbic Acid 500 mg 01/09/22 22:00 01/24/22 09:33 Ascorbic Acid 500 Mg Tab PO 500 mg BID JARROD Administration Carvedilol 3.125 mg 01/12/22 12:00 01/24/22 09:32 Carvedilol 3.125 Mg Tab PO 3.125 mg BID JARROD Administration Cholecalciferol 1,000 unit 01/10/22 10:00 01/24/22 09:32 Cholecalciferol (Vit D3) 1000 Unit (25 Mcg) Tab PO 1,000 unit DAILY JARROD Administration Dextrose 0 ml 01/09/22 14:48 Dextrose 10% *Hypoglycemia IV PRN PRN Hypoglycemia Heparin Sodium (Porcine) 5,000 unit 01/09/22 22:00 01/24/22 09:52 Heparin 5,000 Unit/1 Ml Vial SUB-Q Not Given Q12HR JARROD Hydralazine HCl 10 mg 01/12/22 11:21 Hydralazine 20 Mg/1 Ml Inj IV Q4HR PRN Hypertension Hydromorphone HCl 0.25 mg 01/09/22 15:00 Hydromorphone 1 Mg/1 Ml Inj IV Q4H PRN Pain, Moderate (4-6) Hydromorphone HCl 0.5 mg 01/09/22 15:00 Hydromorphone 1 Mg/1 Ml Inj IV Q23H PRN Pain , Severe (7-10) Sodium Chloride 100 mls @ 999 mls/hr 01/15/22 09:08 Nacl 0.9% IV MYRNA PRN Hypotension Insulin Human Regular 0 units 01/15/22 18:00 01/24/22 08:17 Insulin Regular, Human 100 Units/1 Ml SUB-Q Not Given Q6H [facility] Protocol Losartan Potassium 50 mg 01/18/22 10:00 01/24/22 09:33 Losartan 50 Mg Tab PO 50 mg QDAY JARROD Administration Ondansetron HCl 4 mg 01/09/22 16:00 Ondansetron 4 Mg/2 Ml Inj IV Q8H PRN Nausea And Vomiting Oxycodone/Acetaminophen 1 tab 01/09/22 15:00 01/22/22 13:17 Oxycodone /Acetaminophen 5-325mg Tab PO 1 tab Q16H PRN Administration Pain, Moderate (4-6) Simple Syrup 15 ml 01/18/22 07:11 Simple Syrup 15 Ml FEEDTUBE PRN PRN Hypoglycemia Simple Syrup 30 ml 01/18/22 07:11 Simple Syrup 15 Ml FEEDTUBE PRN PRN Hypoglycemia Sodium Bicarbonate 325 mg 01/18/22 07:11 Sodium Bicarbonate 325 Mg Tab FEEDTUBE PRN PRN For Clogged Feeding Tube Sodium Chloride 10 ml 01/09/22 22:00 01/24/22 09:34 Sodium Chloride 0.9% 10 Ml Flush Syringe IV 10 ml BID JARROD Administration Sodium Chloride 10 ml 01/09/22 15:00 01/15/22 21:08 Sodium Chloride 0.9% 10 Ml Flush Syringe IV 10 ml PRN PRN Administration LINE FLUSH Zinc Sulfate 220 mg 01/09/22 22:00 01/24/22 09:32 Zinc Sulfate 220 Mg Cap PO 220 mg BID JARROD Administration
[2022-01-24 13:46] LABS: Creatinine 24 Hour,Urine 0.1 (0.8-2.8); Creatinine,Urine 19.6 mg/dL (0.1-20.0)
[2022-01-24] MEDS: ACETAMINOPHEN 325 MG TAB PO PRN (17:48)
[2022-01-25] MEDS: INSULIN REGULAR, HUMAN 100 UNITS/1 ML SUB-Q SCH ×4 (06:00→17:10)
[2022-01-25] MEDS: CHOLECALCIFEROL (VIT D3) 1000 UNIT (25 mcg) TAB PO SCH (10:30)
[2022-01-25] MEDS: ZINC SULFATE 220 MG CAP PO SCH ×2 (10:30→21:54)
[2022-01-25] MEDS: ASCORBIC ACID 500 MG TAB PO SCH ×2 (10:30→21:54)
[2022-01-25] MEDS: HEPARIN 5,000 UNIT/1 ML VIAL SUB-Q SCH ×2 (10:30→21:54)
[2022-01-25] MEDS: amLODIPine 10 MG TAB PO SCH (10:32)
[2022-01-25] MEDS: LOSARTAN 50 MG TAB PO SCH (10:32)
[2022-01-25] MEDS: carvediloL 3.125 MG TAB PO SCH ×2 (10:32→21:56)
--- NOTE | 2022-01-25 15:43 | Progress Note ---
Assessment and Plan Assessment and plan: #Normocytic anemia -Hgb improved to 7.2 post transfusion -will transfuse for Hgb less than 7 #Hyponatremia -Sodium improved to 130 -likely secondary to prolonged free water administration -will continue to monitor #Sepsis -improving #COVID-19 infection #Pneumonia -patient with fever x2, curve downtrending, no other signs of sepsis -blood and urine cultures negative; repeat blood culture ordered -s/p doxycycline and rocephin -s/p steroids; vitamins for COVID infection did not receive remdesivir due to kidney function #Acute respiratory failure with hypoxia-resolved -currently weaned to RA -continuous pulse ox -likely secondary to COVID PNA vs bacterial PNA #Acute metabolic encephalopathy-resolved #hx of Vascular dementia #Cerebral atherosclerosis -multifactorial; acute change likely secondary to infection -will continue to monitor #Acute kidney injury vs progressing CKD -Renal US showed medical renal disease -avoid nephrotoxins and will renally dose medications -Nephrology following, assistance appreciated -Initiated hemodialysis on 01/15/2022. Status post triple-lumen HD catheter replacement with permacath by vascular surgery. -HD chair declined due to diagnosis of acute kidney injury, will monitor for signs of recovery #Metabolic acidosis -secondary to renal failure #Dysphagia -Currently with PEG tube -continue tube feeds -Nutrition consult #Severe protein-calorie malnutrition -albumin 2.0 -continue TF, Nutrition managing #Sacral decubitus ulcer -Continue wound care #Discharge planning -Patient family decided with hospice, awaiting approval. Patient will be discharged to [place] with [facility] agency following. History Interval history: No acute events overnight per nursing. Patient opens eyes to verbal stimulation. Nonverbal. Hospitalist Physical - Physical exam Narrative exam: GENERAL: Cachexic. In no acute distress. HEENT:Dry mucus membranes NECK: RIJ Vasc cath, L catheter CHEST/LUNGS: CTAB on RA HEART/CARDIOVASCULAR: RRR. No murmur, rubs or gallops appreciated. ABDOMEN: PEG tube. +BS. NT/ND. NEURO: Unable to assess. MUSCULOSKELETAL: No joint effusion EXTREMITIES: No cyanosis, clubbing or edema. PSYCH: Cooperative. - Constitutional Vitals: Temp Pulse Resp BP Pulse Ox 100.5 F H 86 20 125/57 97 01/25/22 13:51 01/25/22 13:51 01/25/22 13:51 01/25/22 13:51 01/25/22 13:51 General appearance: Present: no acute distress, cachectic HEART Score - HEART Score Troponin: Troponin T 0.064 ng/mL (0.00-0.029) H 01/12/22 02:03 Results - Labs CBC & Chem 7: 01/24/22 05:30 01/24/22 05:30 Labs: Laboratory Last Values WBC 9.7 K/mm3 (4.5-11.0) 01/24/22 05:30 RBC 2.49 M/mm3 (3.65-5.03) L 01/24/22 05:30 Hgb 7.2 gm/dl (10.1-14.3) L 01/24/22 05:30 Hct 20.8 % (30.3-42.9) L 01/24/22 05:30 MCV 84 fl (79-97) 01/24/22 05:30 MCH 29 pg (28-32) 01/24/22 05:30 MCHC 35 % (30-34) H 01/24/22 05:30 RDW 15.1 % (13.2-15.2) 01/24/22 05:30 Plt Count 196 K/mm3 (140-440) 01/24/22 05:30 Lymph % (Auto) Building Maintenance Worker 01/10/22 06:16 Otero % (Auto) Building Maintenance Worker 01/10/22 06:16 Eos % (Auto) Building Maintenance Worker 01/10/22 06:16 Baso % (Auto) Building Maintenance Worker 01/10/22 06:16 Lymph # (Auto) Building Maintenance Worker 01/10/22 06:16 Otero # (Auto) Building Maintenance Worker 01/10/22 06:16 Eos # (Auto) Building Maintenance Worker 01/10/22 06:16 Baso # (Auto) Building Maintenance Worker 01/10/22 06:16 Add Manual Diff Complete 01/24/22 05:30 Total Counted 100 01/24/22 05:30 Seg Neutrophils % Building Maintenance Worker 01/24/22 05:30 Seg Neuts % (Manual) 97.0 % (40.0-70.0) H 01/24/22 05:30 Band Neutrophils % 0 % 01/24/22 05:30 Lymphocytes % (Manual) 1.0 % (13.4-35.0) L 01/24/22 05:30 Reactive Lymphs % (Man) 0 % 01/24/22 05:30 Monocytes % (Manual) 2.0 % (0.0-7.3) 01/24/22 05:30 Eosinophils % (Manual) 0 % (0.0-4.3) 01/24/22 05:30 Basophils % (Manual) 0 % (0.0-1.8) 01/24/22 05:30 Metamyelocytes % 0 % 01/24/22 05:30 Myelocytes % 0 % 01/24/22 05:30 Promyelocytes % 0 % 01/24/22 05:30 Blast Cells % 0 % 01/24/22 05:30 Nucleated RBC % Not Reportable 01/24/22 05:30 Seg Neutrophils # Building Maintenance Worker 01/10/22 06:16 Seg Neutrophils # Man 9.4 K/mm3 (1.8-7.7) H 01/24/22 05:30 Band Neutrophils # 0.0 K/mm3 01/24/22 05:30 Lymphocytes # (Manual) 0.1 K/mm3 (1.2-5.4) L 01/24/22 05:30 Abs React Lymphs (Man) 0.0 K/mm3 01/24/22 05:30 Monocytes # (Manual) 0.2 K/mm3 (0.0-0.8) 01/24/22 05:30 Eosinophils # (Manual) 0.0 K/mm3 (0.0-0.4) 01/24/22 05:30 Basophils # (Manual) 0.0 K/mm3 (0.0-0.1) 01/24/22 05:30 Metamyelocytes # 0.0 K/mm3 01/24/22 05:30 Myelocytes # 0.0 K/mm3 01/24/22 05:30 Promyelocytes # 0.0 K/mm3 01/24/22 05:30 Blast Cells # 0.0 K/mm3 01/24/22 05:30 WBC Morphology Not Reportable 01/24/22 05:30 Hypersegmented Neuts Not Reportable 01/24/22 05:30 Hyposegmented Neuts Not Reportable 01/24/22 05:30 Hypogranular Neuts Not Reportable 01/24/22 05:30 Smudge Cells Not Reportable 01/24/22 05:30 Toxic Granulation 3+ 01/24/22 05:30 Toxic Vacuolation 1+ 01/24/22 05:30 Dohle Bodies Not Reportable 01/24/22 05:30 Pelger-Huet Anomaly Not Reportable 01/24/22 05:30 Lesley Rods Not Reportable 01/24/22 05:30 Platelet Estimate Consistent w auto 01/24/22 05:30 Clumped Platelets Rare 01/24/22 05:30 Plt Clumps, EDTA Not Reportable 01/24/22 05:30 Large Platelets Not Reportable 01/24/22 05:30 Giant Platelets Not Reportable 01/24/22 05:30 Platelet Satelliting Not Reportable 01/24/22 05:30 Plt Morphology Comment Not Reportable 01/24/22 05:30 RBC Morphology Not Reportable 01/24/22 05:30 Dimorphic RBCs Not Reportable 01/24/22 05:30 Polychromasia Not Reportable 01/24/22 05:30 Hypochromasia 1+ 01/24/22 05:30 Poikilocytosis Not Reportable 01/24/22 05:30 Anisocytosis 1+ 01/24/22 05:30 Microcytosis Not Reportable 01/24/22 05:30 Macrocytosis Not Reportable 01/24/22 05:30 Spherocytes Not Reportable 01/24/22 05:30 Pappenheimer Bodies Not Reportable 01/24/22 05:30 Sickle Cells Not Reportable 01/24/22 05:30 Target Cells Not Reportable 01/24/22 05:30 Tear Drop Cells Not Reportable 01/24/22 05:30 Ovalocytes Not Reportable 01/24/22 05:30 Helmet Cells Not Reportable 01/24/22 05:30 Hammonds-Levasy Bodies Not Reportable 01/24/22 05:30 Pendergrass Rings Not Reportable 01/24/22 05:30 Artie Cells Not Reportable 01/24/22 05:30 Bite Cells Not Reportable 01/24/22 05:30 Crenated Cell Not Reportable 01/24/22 05:30 Elliptocytes Not Reportable 01/24/22 05:30 Acanthocytes (Spur) Not Reportable 01/24/22 05:30 Rouleaux Not Reportable 01/24/22 05:30 Hemoglobin C Crystals Not Reportable 01/24/22 05:30 Schistocytes Not Reportable 01/24/22 05:30 Malaria parasites Not Reportable 01/24/22 05:30 Artemio Bodies Not Reportable 01/24/22 05:30 Hem Pathologist Commnt No 01/24/22 05:30 APTT 29.2 Sec. (24.2-36.6) 01/09/22 12:50 D-Dimer 4886.79 ng/mlDDU (0-234) H 01/11/22 07:58 Sodium 130 mmol/L (137-145) L 01/24/22 05:30 Potassium 4.0 mmol/L (3.6-5.0) 01/24/22 05:30 Chloride 96.4 mmol/L (98-107) L 01/24/22 05:30 Carbon Dioxide 22 mmol/L (22-30) 01/24/22 05:30 Anion Gap 16 mmol/L 01/24/22 05:30 BUN 53 mg/dL (7-17) H 01/24/22 05:30 Creatinine 2.3 mg/dL (0.6-1.2) H 01/24/22 05:30 Estimated GFR 26 ml/min 01/24/22 05:30 BUN/Creatinine Ratio 23 % 01/24/22 05:30 Glucose 130 mg/dL (65-100) H 01/24/22 05:30 POC Glucose 109 mg/dL (70-105) H 01/25/22 11:27 Lactic Acid 1.40 mmol/L (0.7-2.0) 01/09/22 12:50 Calcium 7.5 mg/dL (8.4-10.2) L 01/24/22 05:30 Phosphorus 4.90 mg/dL (2.5-4.5) H 01/16/22 06:50 Magnesium 1.60 mg/dL (1.7-2.3) L 01/16/22 06:50 Ferritin 2182.0 ng/mL (10.0-200.0) H 01/11/22 07:58 Total Bilirubin 0.20 mg/dL (0.1-1.2) 01/09/22 12:50 Direct Bilirubin < 0.2 mg/dL (0-0.2) 01/09/22 12:50 Indirect Bilirubin 0.0 mg/dL 01/09/22 12:50 AST 75 units/L (5-40) H 01/09/22 12:50 ALT 31 units/L (7-56) 01/09/22 12:50 Alkaline Phosphatase 69 units/L (35-129) 01/09/22 12:50 Lactate Dehydrogenase 332 units/L (91-180) H 01/11/22 07:58 Troponin T 0.064 ng/mL (0.00-0.029) H 01/12/22 02:03 C-Reactive Protein 30.40 mg/dL (0.00-1.30) H 01/11/22 07:58 NT-Pro-B Natriuret Pep 608.7 pg/mL (0-900) 01/09/22 12:50 Total Protein 7.9 g/dL (6.3-8.2) 01/09/22 12:50 Albumin 2.0 g/dL (3.9-5) L 01/09/22 12:50 Albumin/Globulin Ratio 0.3 % 01/09/22 12:50 Triglycerides 442 mg/dL (2-149) H 01/12/22 02:03 Cholesterol 132 mg/dL (50-199) 01/12/22 02:03 LDL Cholesterol Direct TNR 01/12/22 02:03 HDL Cholesterol 14 mg/dL (40-59) L 01/12/22 02:03 Cholesterol/HDL Ratio 9.42 % 01/12/22 02:03 Procalcitonin > 200.00 ng/mL (<0.15) 01/11/22 07:58 Urine Color Yellow (Yellow) 01/09/22 13:52 Urine Turbidity Hazy (Clear) 01/09/22 13:52 Urine pH 6.0 (5.0-7.0) 01/09/22 13:52 Ur Specific Elfrida 1.020 (1.003-1.030) 01/09/22 13:52 Urine Protein 100 mg/dl mg/dL (Negative) 01/09/22 13:52 Urine Glucose (UA) Neg mg/dL (Negative) 01/09/22 13:52 Urine Ketones Neg mg/dL (Negative) 01/09/22 13:52 Urine Blood Neg (Negative) 01/09/22 13:52 Urine Nitrite Neg (Negative) 01/09/22 13:52 Urine Bilirubin Neg (Negative) 01/09/22 13:52 Urine Urobilinogen < 2.0 mg/dL (<2.0) 01/09/22 13:52 Ur Leukocyte Esterase Neg (Negative) 01/09/22 13:52 Urine WBC (Auto) 4.0 /HPF (0.0-6.0) 01/09/22 13:52 Urine RBC (Auto) 3.0 /HPF (0.0-6.0) 01/09/22 13:52 U Epithel Cells (Auto) 2.0 /HPF (0-13.0) 01/09/22 13:52 Urine Bacteria (Auto) 1+ /HPF (Negative) 01/09/22 13:52 Urine Mucus Few /HPF 01/09/22 13:52 Urine Total Volume 520 ml 01/23/22 Unknown Urine Creatinine 19.6 mg/dL (0.1-20.0) 01/23/22 Unknown Ur Creatinine 24 Hour 0.1 (0.8-2.8) L 01/23/22 Unknown C. difficile Tox (PCR) Negative (Negative) 01/16/22 10:30 Coronavirus (PCR) Negative (Negative) 01/25/22 08:00 Hepatitis A IgM Ab Non-reactive (NonReactive) 01/14/22 Unknown Hep Bs Antigen Non-reactive (Negative) 01/14/22 Unknown Hep B Core IgM Ab Non-reactive (NonReactive) 01/14/22 Unknown Hepatitis C Antibody Non-reactive (NonReactive) 01/14/22 Unknown Blood Type B POSITIVE 01/23/22 07:26 Antibody Screen Negative 01/23/22 07:26 Crossmatch See Detail 01/23/22 07:26 Samuel/IV: Voiding Method External Female Catheter Active Medications - Current Medications Current Medications: Generic Name Dose Route Start Last Admin Trade Name Freq PRN Reason Stop Dose Admin Acetaminophen 650 mg 01/09/22 15:00 01/24/22 17:48 Acetaminophen 325 Mg Tab PO 650 mg Q4H PRN Administration Pain MILD(1-3)/Fever >100.5/RILEY Albuterol 2.5 mg 01/09/22 14:25 Albuterol 2.5 Mg/3 Ml Nebu IH Q4HRT PRN Shortness Of Breath Amlodipine Besylate 10 mg 01/19/22 12:00 01/25/22 10:32 Amlodipine 10 Mg Tab PO 10 mg QDAY JARROD Administration Lipase/Protease/Amylase 1 each 01/18/22 07:11 Lipase 10,500/Protease 25,000/Amylase 43,750 (Units) Dr Gant FEEDTUBE PRN PRN For Clogged Feeding Tube Ascorbic Acid 500 mg 01/09/22 22:00 01/25/22 10:30 Ascorbic Acid 500 Mg Tab PO 500 mg BID JARROD Administration Carvedilol 3.125 mg 01/12/22 12:00 01/25/22 10:32 Carvedilol 3.125 Mg Tab PO 3.125 mg BID JARROD Administration Cholecalciferol 1,000 unit 01/10/22 10:00 01/25/22 10:30 Cholecalciferol (Vit D3) 1000 Unit (25 Mcg) Tab PO 1,000 unit DAILY JARROD Administration Dextrose 0 ml 01/09/22 14:48 Dextrose 10% *Hypoglycemia IV PRN PRN Hypoglycemia Heparin Sodium (Porcine) 5,000 unit 01/09/22 22:00 01/25/22 10:30 Heparin 5,000 Unit/1 Ml Vial SUB-Q 5,000 unit Q12HR JARROD Administration Hydralazine HCl 10 mg 01/12/22 11:21 Hydralazine 20 Mg/1 Ml Inj IV Q4HR PRN Hypertension Hydromorphone HCl 0.25 mg 01/09/22 15:00 Hydromorphone 1 Mg/1 Ml Inj IV Q4H PRN Pain, Moderate (4-6) Hydromorphone HCl 0.5 mg 01/09/22 15:00 Hydromorphone 1 Mg/1 Ml Inj IV Q23H PRN Pain , Severe (7-10) Sodium Chloride 100 mls @ 999 mls/hr 01/15/22 09:08 Nacl 0.9% IV MYRNA PRN Hypotension Insulin Human Regular 0 units 01/15/22 18:00 01/25/22 14:48 Insulin Regular, Human 100 Units/1 Ml SUB-Q Not Given Q6H [facility] Protocol Losartan Potassium 50 mg 01/18/22 10:00 01/25/22 10:32 Losartan 50 Mg Tab PO 50 mg QDAY JARROD Administration Ondansetron HCl 4 mg 01/09/22 16:00 Ondansetron 4 Mg/2 Ml Inj IV Q8H PRN Nausea And Vomiting Oxycodone/Acetaminophen 1 tab 01/09/22 15:00 01/22/22 13:17 Oxycodone /Acetaminophen 5-325mg Tab PO 1 tab Q16H PRN Administration Pain, Moderate (4-6) Simple Syrup 15 ml 01/18/22 07:11 Simple Syrup 15 Ml FEEDTUBE PRN PRN Hypoglycemia Simple Syrup 30 ml 01/18/22 07:11 Simple Syrup 15 Ml FEEDTUBE PRN PRN Hypoglycemia Sodium Bicarbonate 325 mg 01/18/22 07:11 Sodium Bicarbonate 325 Mg Tab FEEDTUBE PRN PRN For Clogged Feeding Tube Sodium Chloride 10 ml 01/09/22 22:00 01/25/22 10:30 Sodium Chloride 0.9% 10 Ml Flush Syringe IV 10 ml BID JARROD Administration Sodium Chloride 10 ml 01/09/22 15:00 01/15/22 21:08 Sodium Chloride 0.9% 10 Ml Flush Syringe IV 10 ml PRN PRN Administration LINE FLUSH Zinc Sulfate 220 mg 01/09/22 22:00 01/25/22 10:30 Zinc Sulfate 220 Mg Cap PO 220 mg BID JARROD Administration Nutrition/Malnutrition Assess - Dietary Evaluation Nutrition/Malnutrition Findings: Nutrition Notes Start: 01/10/22 13:52 Freq: Status: Active Protocol: Document 01/18/22 10:33 FLOR (Rec: 01/18/22 10:50 FLOR [id number]) Nutrition Notes Initial or Follow up Reassessment Current Diagnosis Acute Kidney Injury,Decubitus( Pressure Ulcer),Sepsis, Respiratory Failure, Malnutrition Other Pertinent Diagnosis COVID-19/Pneumonia, Metabolic Acidosis, KELSIE/ATN, Dysphagia, Dementia... Current Diet TF-Nepro w/CARBSTEADY @ 30 ml/ hr (since L 01/18). Labs/Tests 01/17: CO2 20, BUN 97, Crea 2. 8, Glu 106. Pertinent Medications 01/18: Vit C, Vit D3, Dw5 1000 ml @ 125 ml/hr, ZnSO4, others nutritionally unremarkable. Height 5 ft 4 in Weight 48 kg [place] Body Weight (kg) 54.54 BMI 18.1 Weight change and time frame No body weight change reported in 9 days. Weight Status Underweight Subjective/Other Information RD consult for write/manage TF . Pt underwent procedure 01/17: Pemacath placement, well tolerated. TF resumed as previously prescribed. Pt medically cleared for Discharge. Percent of energy/protein needs met: Prescribed TF-Nepro w/ CARBSTEADY @ 30 ml/hr provides for energy/protein needs (1, 296 Kcal/58 g) during LOS, 77% Kcal; 100% AA. Burn Absent Trauma Absent GI Symptoms None Difficulty In Swallowing Food Allergy No Skin Integrity/Comment Sacral Decubitus Current % PO Other Minimum of two criteria Yes Energy Intake (severe) < or equal to 50% Estimated Energy Requirement > or equal to 5 days Body Fat Depletion Moderate depletion (severe) Protein-Calorie Malnutrition Severe #1 Nutrition Diagnosis Underweight Diagnosis Progress(for reassessment Continues documentation) Is patient on ventilator? No Is Patient Ambulatory and/or Out of Bed No REE-([place]-confined to bed) 1223.568 Kcal/Kg value to use for calculation 35 Approximate Energy Requirements Using 1680 kcal/Kg Calculation Used for Recommendations Kcal/kg Additional Notes Protein: 1.2-1.5 g/Kg; 58-72 g /day. Fluids: 1 ml/Kcal, or as per MD. Nutrition Intervention Nutrition Support: Resume TF-Nepro w/CARBSTEADY @ 30 ml/hr. Flush: 130 ml water Q 4 hr, or as per MD. Kcal 1,296 Protein (gm) 58 Carbohydrates (gm) 116 Fat (gm) 69 Fluid (mL) 523 Fiber (gm) 9 % RDI: 77% Kcal; 100% AA. Goal #1 Provide at least 75% of energy /protein needs through Enteral Feeding during LOS. Goal #2 Maintain body weight within +/ -3% of admission body weight during LOS. Follow-Up By: 01/25/22 Additional Comments Continue monitoring TF tolerance and BM.
[2022-01-25] MEDS ORDERED: NEOMY 3.5 MG/BACIT 400 UNITS/POLY B 5000 UNITS/GM OINT PACKET TP ONE (16:29)
[2022-01-25] MEDS: ACETAMINOPHEN 325 MG TAB PO PRN (17:08)
--- NOTE | 2022-01-25 17:15 | Progress Note ---
Subjective Date of service: 01/25/22 Principal diagnosis: kelsie Interval history: Impression: * Acute kidney injury secondary to COVID related ATN * Azotemia secondary to multifactorial etiologies: KELSIE vs steroids * Hyponatremia * anemia * Acute hypoxic respiratory failure secondary to COVID 19 PNA * COVID 19 infection Plan: * plan to continue HD // and prn * Na better at last check, not being done as ordered * stopped free water and d5w * follow up lytes and crcl for signs of renal recovery * Appreciate permacath placement per vascular * stop any D5W for hydration, sodium is low, needs daily lytes * Steroids per primary team * Management of COVID 19 per primary team * Avoid potential nephrotoxins * Dose medications for renal function * Outpatient HD unit placement pending-- Subjective Interval history: No acute events noted, patient resting in bed. Chart/vitals/labs reviewed in detail Objective exam deferred for preservation of PPE Objective - Vital Signs Vital signs: Vital Signs - 12hr 01/25/22 01/25/22 10:32 13:51 Temperature 100.5 F H Pulse Rate 87 86 Respiratory 20 Rate Blood Pressure 132/58 125/57 O2 Sat by Pulse 97 Oximetry - Lab 01/24/22 05:30 01/24/22 05:30 Most recent lab results Calcium 7.5 mg/dL (8.4-10.2) L 01/24/22 05:30 Phosphorus 4.90 mg/dL (2.5-4.5) H 01/16/22 06:50 Magnesium 1.60 mg/dL (1.7-2.3) L 01/16/22 06:50 Urine Creatinine 19.6 mg/dL (0.1-20.0) 01/23/22 Unknown Medications & Allergies - Medications Allergies/Adverse Reactions: Allergies No Known Allergies Allergy (Verified 01/09/22 11:43) Home Medications: Home Medications Medication Instructions Recorded Confirmed Last Taken Type amLODIPine 10 mg PO QDAY #30 tablet 03/09/21 01/09/22 Unknown Rx carvediloL [Coreg] 3.125 mg PO BID #60 tablet 03/09/21 01/09/22 Unknown Rx Cholecalciferol Vit D3 [Vitamin D3 1,000 unit PO DAILY #30 tablet 01/16/22 Unknown Rx 1,000 UNIT TAB] Losartan [Cozaar] 50 mg PO QDAY #30 tablet 01/18/22 Unknown Rx NIFEdipine XL [Procardia Xl] 30 mg PO QDAY #30 tablet 01/18/22 Unknown Rx Active Medications: Generic Name Dose Route Start Last Admin Trade Name Freq PRN Reason Stop Dose Admin Acetaminophen 650 mg 01/09/22 15:00 01/25/22 17:08 Acetaminophen 325 Mg Tab PO 650 mg Q4H PRN Administration Pain MILD(1-3)/Fever >100.5/RILEY Albuterol 2.5 mg 01/09/22 14:25 Albuterol 2.5 Mg/3 Ml Nebu IH Q4HRT PRN Shortness Of Breath Amlodipine Besylate 10 mg 01/19/22 12:00 01/25/22 10:32 Amlodipine 10 Mg Tab PO 10 mg QDAY JARROD Administration Lipase/Protease/Amylase 1 each 01/18/22 07:11 Lipase 10,500/Protease 25,000/Amylase 43,750 (Units) Dr Gant FEEDTUBE PRN PRN For Clogged Feeding Tube Ascorbic Acid 500 mg 01/09/22 22:00 01/25/22 10:30 Ascorbic Acid 500 Mg Tab PO 500 mg BID JARROD Administration Carvedilol 3.125 mg 01/12/22 12:00 01/25/22 10:32 Carvedilol 3.125 Mg Tab PO 3.125 mg BID JARROD Administration Cholecalciferol 1,000 unit 01/10/22 10:00 01/25/22 10:30 Cholecalciferol (Vit D3) 1000 Unit (25 Mcg) Tab PO 1,000 unit DAILY JARROD Administration Dextrose 0 ml 01/09/22 14:48 Dextrose 10% *Hypoglycemia IV PRN PRN Hypoglycemia Heparin Sodium (Porcine) 5,000 unit 01/09/22 22:00 01/25/22 10:30 Heparin 5,000 Unit/1 Ml Vial SUB-Q 5,000 unit Q12HR JARROD Administration Hydralazine HCl 10 mg 01/12/22 11:21 Hydralazine 20 Mg/1 Ml Inj IV Q4HR PRN Hypertension Hydromorphone HCl 0.25 mg 01/09/22 15:00 Hydromorphone 1 Mg/1 Ml Inj IV Q4H PRN Pain, Moderate (4-6) Hydromorphone HCl 0.5 mg 01/09/22 15:00 Hydromorphone 1 Mg/1 Ml Inj IV Q23H PRN Pain , Severe (7-10) Sodium Chloride 100 mls @ 999 mls/hr 01/15/22 09:08 Nacl 0.9% IV MYRNA PRN Hypotension Insulin Human Regular 0 units 01/15/22 18:00 01/25/22 17:10 Insulin Regular, Human 100 Units/1 Ml SUB-Q Not Given Q6H [facility] Protocol Losartan Potassium 50 mg 01/18/22 10:00 01/25/22 10:32 Losartan 50 Mg Tab PO 50 mg QDAY JARROD Administration Ondansetron HCl 4 mg 01/09/22 16:00 Ondansetron 4 Mg/2 Ml Inj IV Q8H PRN Nausea And Vomiting Oxycodone/Acetaminophen 1 tab 01/09/22 15:00 01/22/22 13:17 Oxycodone /Acetaminophen 5-325mg Tab PO 1 tab Q16H PRN Administration Pain, Moderate (4-6) Simple Syrup 15 ml 01/18/22 07:11 Simple Syrup 15 Ml FEEDTUBE PRN PRN Hypoglycemia Simple Syrup 30 ml 01/18/22 07:11 Simple Syrup 15 Ml FEEDTUBE PRN PRN Hypoglycemia Sodium Bicarbonate 325 mg 01/18/22 07:11 Sodium Bicarbonate 325 Mg Tab FEEDTUBE PRN PRN For Clogged Feeding Tube Sodium Chloride 10 ml 01/09/22 22:00 01/25/22 10:30 Sodium Chloride 0.9% 10 Ml Flush Syringe IV 10 ml BID JARROD Administration Sodium Chloride 10 ml 01/09/22 15:00 01/15/22 21:08 Sodium Chloride 0.9% 10 Ml Flush Syringe IV 10 ml PRN PRN Administration LINE FLUSH Zinc Sulfate 220 mg 01/09/22 22:00 01/25/22 10:30 Zinc Sulfate 220 Mg Cap PO 220 mg BID JARROD Administration
[2022-01-25] MEDS ORDERED: VANCOMYCIN PHARMACY TO DOSE IV SCH (18:00)
[2022-01-25] MEDS ORDERED: VANCOMYCIN/NS 1 GM/250 ML 1 GM/250 ML BAG IV NR (19:00)
[2022-01-25] MEDS: cefTRIAXone/NS 1 GM/50 ML 1 GM/50 ML BAG IV SCH (21:54)
[2022-01-26 05:33] LABS: Basophils % (Auto) 0.2 % (0.0-1.8); Eosinophils % (Auto) 0.2 % (0.0-4.3); Hematocrit 22.8 % (30.3-42.9); Hemoglobin 7.8 gm/dl (10.1-14.3); Lymphocytes # (Auto) 0.3 K/mm3 (1.2-5.4); Lymphocytes % (Auto) 6.6 % (13.4-35.0); Mean Corpuscular HGB Conc 34 % (30-34); Mean Corpuscular Volume 84 fl (79-97); Monocytes # (Auto) 0.2 K/mm3 (0.0-0.8); Platelet Count 264 K/mm3 (140-440); Red Blood Count 2.71 M/mm3 (3.65-5.03); Red Cell Distribution Width 15.8 % (13.2-15.2)
[2022-01-26] MEDS: ACETAMINOPHEN 325 MG TAB PO PRN ×2 (05:49→21:16)
[2022-01-26] MEDS: HYDROmorphone 1 MG/1 ML INJ IV PRN (05:50)
[2022-01-26 05:55] LABS: Calcium 7.7 mg/dL (8.4-10.2)
[2022-01-26] MEDS: INSULIN REGULAR, HUMAN 100 UNITS/1 ML SUB-Q SCH ×4 (06:39→17:20)
--- NOTE | 2022-01-26 08:04 | Progress Note ---
Assessment and Plan Assessment and plan: #Sepsis #COVID-19 infection #Pneumonia -patient with fever to 101, -blood and urine cultures negative -repeat blood culture and tip culture collected on 01/25 -s/p doxycycline and rocephin; restarted vanc/rocephin for now; will discontinue if patient afebrile x 48hrs -s/p steroids; vitamins for COVID infection did not receive remdesivir due to kidney function #Normocytic anemia -Hgb stable -will transfuse for Hgb less than 7 #Hyponatremia -Sodium improving -likely secondary to prolonged free water administration -will continue to monitor #Acute respiratory failure with hypoxia-resolved -currently weaned to RA -continuous pulse ox -likely secondary to COVID PNA vs bacterial PNA #Acute metabolic encephalopathy-resolved #hx of Vascular dementia #Cerebral atherosclerosis -multifactorial; acute change likely secondary to infection -will continue to monitor #Acute kidney injury vs progressing CKD -Renal US showed medical renal disease -avoid nephrotoxins and will renally dose medications -Nephrology following, assistance appreciated -Initiated hemodialysis on 01/15/2022. Status post triple-lumen HD catheter replacement with permacath by vascular surgery. -HD chair declined due to diagnosis of acute kidney injury, will monitor for signs of recovery #Metabolic acidosis -secondary to renal failure #Dysphagia -Currently with PEG tube -continue tube feeds -Nutrition consult #Severe protein-calorie malnutrition -albumin 2.0 -continue TF, Nutrition managing #Sacral decubitus ulcer -Continue wound care #Discharge planning -Patient family decided with hospice, awaiting approval. Patient will be discharged to [facility] hospice agency following. Disposition Plan: [facility] with hospice History Interval history: No acute events overnight per nursing. Patient opens eyes to verbal stimulation. Nonverbal. Tolerating dialysis. Hospitalist Physical - Physical exam Narrative exam: GENERAL: Cachexic. In no acute distress. NECK: L permacath CHEST/LUNGS: CTAB on RA HEART/CARDIOVASCULAR: RRR. No murmur, rubs or gallops appreciated. ABDOMEN: PEG tube. +BS. NT/ND. NEURO: Unable to assess. MUSCULOSKELETAL: No joint effusion EXTREMITIES: No cyanosis, clubbing or edema. PSYCH: Alert - Constitutional Vitals: Temp Pulse Resp BP Pulse Ox 100.2 F H 87 17 129/65 97 01/26/22 05:50 01/26/22 05:50 01/26/22 06:49 01/26/22 05:50 01/26/22 05:50 General appearance: Present: no acute distress, cachectic HEART Score - HEART Score Troponin: Troponin T 0.064 ng/mL (0.00-0.029) H 01/12/22 02:03 Results - Labs CBC & Chem 7: 01/26/22 04:24 01/26/22 04:24 Labs: Laboratory Last Values WBC 5.3 K/mm3 (4.5-11.0) 01/26/22 04:24 RBC 2.71 M/mm3 (3.65-5.03) L 01/26/22 04:24 Hgb 7.8 gm/dl (10.1-14.3) L 01/26/22 04:24 Hct 22.8 % (30.3-42.9) L 01/26/22 04:24 MCV 84 fl (79-97) 01/26/22 04:24 MCH 29 pg (28-32) 01/26/22 04:24 MCHC 34 % (30-34) 01/26/22 04:24 RDW 15.8 % (13.2-15.2) H 01/26/22 04:24 Plt Count 264 K/mm3 (140-440) 01/26/22 04:24 Lymph % (Auto) 6.6 % (13.4-35.0) L 01/26/22 04:24 Beaver % (Auto) 3.0 % (0.0-7.3) 01/26/22 04:24 Eos % (Auto) 0.2 % (0.0-4.3) 01/26/22 04:24 Baso % (Auto) 0.2 % (0.0-1.8) 01/26/22 04:24 Lymph # (Auto) 0.3 K/mm3 (1.2-5.4) L 01/26/22 04:24 Beaver # (Auto) 0.2 K/mm3 (0.0-0.8) 01/26/22 04:24 Eos # (Auto) 0.0 K/mm3 (0.0-0.4) 01/26/22 04:24 Baso # (Auto) 0.0 K/mm3 (0.0-0.1) 01/26/22 04:24 Add Manual Diff Complete 01/24/22 05:30 Total Counted 100 01/24/22 05:30 Seg Neutrophils % 90.0 % (40.0-70.0) H 01/26/22 04:24 Seg Neuts % (Manual) 97.0 % (40.0-70.0) H 01/24/22 05:30 Band Neutrophils % 0 % 01/24/22 05:30 Lymphocytes % (Manual) 1.0 % (13.4-35.0) L 01/24/22 05:30 Reactive Lymphs % (Man) 0 % 01/24/22 05:30 Monocytes % (Manual) 2.0 % (0.0-7.3) 01/24/22 05:30 Eosinophils % (Manual) 0 % (0.0-4.3) 01/24/22 05:30 Basophils % (Manual) 0 % (0.0-1.8) 01/24/22 05:30 Metamyelocytes % 0 % 01/24/22 05:30 Myelocytes % 0 % 01/24/22 05:30 Promyelocytes % 0 % 01/24/22 05:30 Blast Cells % 0 % 01/24/22 05:30 Nucleated RBC % Not Reportable 01/24/22 05:30 Seg Neutrophils # 4.7 K/mm3 (1.8-7.7) 01/26/22 04:24 Seg Neutrophils # Man 9.4 K/mm3 (1.8-7.7) H 01/24/22 05:30 Band Neutrophils # 0.0 K/mm3 01/24/22 05:30 Lymphocytes # (Manual) 0.1 K/mm3 (1.2-5.4) L 01/24/22 05:30 Abs React Lymphs (Man) 0.0 K/mm3 01/24/22 05:30 Monocytes # (Manual) 0.2 K/mm3 (0.0-0.8) 01/24/22 05:30 Eosinophils # (Manual) 0.0 K/mm3 (0.0-0.4) 01/24/22 05:30 Basophils # (Manual) 0.0 K/mm3 (0.0-0.1) 01/24/22 05:30 Metamyelocytes # 0.0 K/mm3 01/24/22 05:30 Myelocytes # 0.0 K/mm3 01/24/22 05:30 Promyelocytes # 0.0 K/mm3 01/24/22 05:30 Blast Cells # 0.0 K/mm3 01/24/22 05:30 WBC Morphology Not Reportable 01/24/22 05:30 Hypersegmented Neuts Not Reportable 01/24/22 05:30 Hyposegmented Neuts Not Reportable 01/24/22 05:30 Hypogranular Neuts Not Reportable 01/24/22 05:30 Smudge Cells Not Reportable 01/24/22 05:30 Toxic Granulation 3+ 01/24/22 05:30 Toxic Vacuolation 1+ 01/24/22 05:30 Dohle Bodies Not Reportable 01/24/22 05:30 Pelger-Huet Anomaly Not Reportable 01/24/22 05:30 Lesley Rods Not Reportable 01/24/22 05:30 Platelet Estimate Consistent w auto 01/24/22 05:30 Clumped Platelets Rare 01/24/22 05:30 Plt Clumps, EDTA Not Reportable 01/24/22 05:30 Large Platelets Not Reportable 01/24/22 05:30 Giant Platelets Not Reportable 01/24/22 05:30 Platelet Satelliting Not Reportable 01/24/22 05:30 Plt Morphology Comment Not Reportable 01/24/22 05:30 RBC Morphology Not Reportable 01/24/22 05:30 Dimorphic RBCs Not Reportable 01/24/22 05:30 Polychromasia Not Reportable 01/24/22 05:30 Hypochromasia 1+ 01/24/22 05:30 Poikilocytosis Not Reportable 01/24/22 05:30 Anisocytosis 1+ 01/24/22 05:30 Microcytosis Not Reportable 01/24/22 05:30 Macrocytosis Not Reportable 01/24/22 05:30 Spherocytes Not Reportable 01/24/22 05:30 Pappenheimer Bodies Not Reportable 01/24/22 05:30 Sickle Cells Not Reportable 01/24/22 05:30 Target Cells Not Reportable 01/24/22 05:30 Tear Drop Cells Not Reportable 01/24/22 05:30 Ovalocytes Not Reportable 01/24/22 05:30 Helmet Cells Not Reportable 01/24/22 05:30 [place] Bodies Not Reportable 01/24/22 05:30 [place] Rings Not Reportable 01/24/22 05:30 Hussein Cells Not Reportable 01/24/22 05:30 Bite Cells Not Reportable 01/24/22 05:30 Crenated Cell Not Reportable 01/24/22 05:30 Elliptocytes Not Reportable 01/24/22 05:30 Acanthocytes (Spur) Not Reportable 01/24/22 05:30 Rouleaux Not Reportable 01/24/22 05:30 Hemoglobin C Crystals Not Reportable 01/24/22 05:30 Schistocytes Not Reportable 01/24/22 05:30 Malaria parasites Not Reportable 01/24/22 05:30 Artemio Bodies Not Reportable 01/24/22 05:30 Hem Pathologist Commnt No 01/24/22 05:30 APTT 29.2 Sec. (24.2-36.6) 01/09/22 12:50 D-Dimer 4886.79 ng/mlDDU (0-234) H 01/11/22 07:58 Sodium 134 mmol/L (137-145) L 01/26/22 04:24 Potassium 4.0 mmol/L (3.6-5.0) 01/26/22 04:24 Chloride 97.5 mmol/L (98-107) L 01/26/22 04:24 Carbon Dioxide 24 mmol/L (22-30) 01/26/22 04:24 Anion Gap 17 mmol/L 01/26/22 04:24 BUN 40 mg/dL (7-17) H 01/26/22 04:24 Creatinine 2.0 mg/dL (0.6-1.2) H 01/26/22 04:24 Estimated GFR 30 ml/min 01/26/22 04:24 BUN/Creatinine Ratio 20 % 01/26/22 04:24 Glucose 122 mg/dL (65-100) H 01/26/22 04:24 POC Glucose 115 mg/dL (70-105) H 01/26/22 05:42 Lactic Acid 1.40 mmol/L (0.7-2.0) 01/09/22 12:50 Calcium 7.7 mg/dL (8.4-10.2) L 01/26/22 04:24 Phosphorus 4.90 mg/dL (2.5-4.5) H 01/16/22 06:50 Magnesium 1.60 mg/dL (1.7-2.3) L 01/16/22 06:50 Ferritin 2182.0 ng/mL (10.0-200.0) H 01/11/22 07:58 Total Bilirubin 0.20 mg/dL (0.1-1.2) 01/09/22 12:50 Direct Bilirubin < 0.2 mg/dL (0-0.2) 01/09/22 12:50 Indirect Bilirubin 0.0 mg/dL 01/09/22 12:50 AST 75 units/L (5-40) H 01/09/22 12:50 ALT 31 units/L (7-56) 01/09/22 12:50 Alkaline Phosphatase 69 units/L (35-129) 01/09/22 12:50 Lactate Dehydrogenase 332 units/L (91-180) H 01/11/22 07:58 Troponin T 0.064 ng/mL (0.00-0.029) H 01/12/22 02:03 C-Reactive Protein 30.40 mg/dL (0.00-1.30) H 01/11/22 07:58 NT-Pro-B Natriuret Pep 608.7 pg/mL (0-900) 01/09/22 12:50 Total Protein 7.9 g/dL (6.3-8.2) 01/09/22 12:50 Albumin 2.0 g/dL (3.9-5) L 01/09/22 12:50 Albumin/Globulin Ratio 0.3 % 01/09/22 12:50 Triglycerides 442 mg/dL (2-149) H 01/12/22 02:03 Cholesterol 132 mg/dL (50-199) 01/12/22 02:03 LDL Cholesterol Direct TNR 01/12/22 02:03 HDL Cholesterol 14 mg/dL (40-59) L 01/12/22 02:03 Cholesterol/HDL Ratio 9.42 % 01/12/22 02:03 Procalcitonin > 200.00 ng/mL (<0.15) 01/11/22 07:58 Urine Color Yellow (Yellow) 01/09/22 13:52 Urine Turbidity Hazy (Clear) 01/09/22 13:52 Urine pH 6.0 (5.0-7.0) 01/09/22 13:52 Ur Specific Mandan 1.020 (1.003-1.030) 01/09/22 13:52 Urine Protein 100 mg/dl mg/dL (Negative) 01/09/22 13:52 Urine Glucose (UA) Neg mg/dL (Negative) 01/09/22 13:52 Urine Ketones Neg mg/dL (Negative) 01/09/22 13:52 Urine Blood Neg (Negative) 01/09/22 13:52 Urine Nitrite Neg (Negative) 01/09/22 13:52 Urine Bilirubin Neg (Negative) 01/09/22 13:52 Urine Urobilinogen < 2.0 mg/dL (<2.0) 01/09/22 13:52 Ur Leukocyte Esterase Neg (Negative) 01/09/22 13:52 Urine WBC (Auto) 4.0 /HPF (0.0-6.0) 01/09/22 13:52 Urine RBC (Auto) 3.0 /HPF (0.0-6.0) 01/09/22 13:52 U Epithel Cells (Auto) 2.0 /HPF (0-13.0) 01/09/22 13:52 Urine Bacteria (Auto) 1+ /HPF (Negative) 01/09/22 13:52 Urine Mucus Few /HPF 01/09/22 13:52 Urine Total Volume 520 ml 01/23/22 Unknown Urine Creatinine 19.6 mg/dL (0.1-20.0) 01/23/22 Unknown Ur Creatinine 24 Hour 0.1 (0.8-2.8) L 01/23/22 Unknown C. difficile Tox (PCR) Negative (Negative) 01/16/22 10:30 Coronavirus (PCR) Negative (Negative) 01/25/22 08:00 Hepatitis A IgM Ab Non-reactive (NonReactive) 01/14/22 Unknown Hep Bs Antigen Non-reactive (Negative) 01/14/22 Unknown Hep B Core IgM Ab Non-reactive (NonReactive) 01/14/22 Unknown Hepatitis C Antibody Non-reactive (NonReactive) 01/14/22 Unknown Blood Type B POSITIVE 01/23/22 07:26 Antibody Screen Negative 01/23/22 07:26 Crossmatch See Detail 01/23/22 07:26 Microbiology: Microbiology 01/25/22 16:23 Peripheral/Venous Blood Culture - Preliminary Culture in Progress 01/25/22 16:23 Peripheral/Venous Blood Culture - Preliminary Culture in Progress Samuel/IV: Voiding Method Incontinent Active Medications - Current Medications Current Medications: Generic Name Dose Route Start Last Admin Trade Name Freq PRN Reason Stop Dose Admin Acetaminophen 650 mg 01/09/22 15:00 01/26/22 05:49 Acetaminophen 325 Mg Tab PO 650 mg Q4H PRN Administration Pain MILD(1-3)/Fever >100.5/RILEY Albuterol 2.5 mg 01/09/22 14:25 Albuterol 2.5 Mg/3 Ml Nebu IH Q4HRT PRN Shortness Of Breath Amlodipine Besylate 10 mg 01/19/22 12:00 01/25/22 10:32 Amlodipine 10 Mg Tab PO 10 mg QDAY JARROD Administration Lipase/Protease/Amylase 1 each 01/18/22 07:11 Lipase 10,500/Protease 25,000/Amylase 43,750 (Units) Dr Gant FEEDTUBE PRN PRN For Clogged Feeding Tube Ascorbic Acid 500 mg 01/09/22 22:00 01/25/22 21:54 Ascorbic Acid 500 Mg Tab PO 500 mg BID JARROD Administration Carvedilol 3.125 mg 01/12/22 12:00 01/25/22 21:56 Carvedilol 3.125 Mg Tab PO 3.125 mg BID JARROD Administration Cholecalciferol 1,000 unit 01/10/22 10:00 01/25/22 10:30 Cholecalciferol (Vit D3) 1000 Unit (25 Mcg) Tab PO 1,000 unit DAILY JARROD Administration Dextrose 0 ml 01/09/22 14:48 Dextrose 10% *Hypoglycemia IV PRN PRN Hypoglycemia Heparin Sodium (Porcine) 5,000 unit 01/09/22 22:00 01/25/22 21:54 Heparin 5,000 Unit/1 Ml Vial SUB-Q 5,000 unit Q12HR JARROD Administration Hydralazine HCl 10 mg 01/12/22 11:21 Hydralazine 20 Mg/1 Ml Inj IV Q4HR PRN Hypertension Hydromorphone HCl 0.25 mg 01/09/22 15:00 01/26/22 05:50 Hydromorphone 1 Mg/1 Ml Inj IV 0.25 mg Q4H PRN Administration Pain, Moderate (4-6) Hydromorphone HCl 0.5 mg 01/09/22 15:00 Hydromorphone 1 Mg/1 Ml Inj IV Q23H PRN Pain , Severe (7-10) Sodium Chloride 100 mls @ 999 mls/hr 01/15/22 09:08 Nacl 0.9% IV MYRNA PRN Hypotension Ceftriaxone Sodium 1 gm in 50 mls @ 100 mls/hr 01/25/22 18:00 01/25/22 21:54 Rocephin/Ns 1 Gm/50 Ml IV 100 mls/hr Q24H [facility] Administration Protocol Insulin Human Regular 0 units 01/15/22 18:00 01/26/22 06:39 Insulin Regular, Human 100 Units/1 Ml SUB-Q Not Given Q6H [facility] Protocol Losartan Potassium 50 mg 01/18/22 10:00 01/25/22 10:32 Losartan 50 Mg Tab PO 50 mg QDAY JARROD Administration Ondansetron HCl 4 mg 01/09/22 16:00 Ondansetron 4 Mg/2 Ml Inj IV Q8H PRN Nausea And Vomiting Oxycodone/Acetaminophen 1 tab 01/09/22 15:00 01/22/22 13:17 Oxycodone /Acetaminophen 5-325mg Tab PO 1 tab Q16H PRN Administration Pain, Moderate (4-6) Simple Syrup 15 ml 01/18/22 07:11 Simple Syrup 15 Ml FEEDTUBE PRN PRN Hypoglycemia Simple Syrup 30 ml 01/18/22 07:11 Simple Syrup 15 Ml FEEDTUBE PRN PRN Hypoglycemia Sodium Bicarbonate 325 mg 01/18/22 07:11 Sodium Bicarbonate 325 Mg Tab FEEDTUBE PRN PRN For Clogged Feeding Tube Sodium Chloride 10 ml 01/09/22 22:00 01/25/22 21:55 Sodium Chloride 0.9% 10 Ml Flush Syringe IV 10 ml BID JARROD Administration Sodium Chloride 10 ml 01/09/22 15:00 01/15/22 21:08 Sodium Chloride 0.9% 10 Ml Flush Syringe IV 10 ml PRN PRN Administration LINE FLUSH Zinc Sulfate 220 mg 01/09/22 22:00 01/25/22 21:54 Zinc Sulfate 220 Mg Cap PO 220 mg BID JARROD Administration Nutrition/Malnutrition Assess - Dietary Evaluation Nutrition/Malnutrition Findings: Nutrition Notes Start: 01/10/22 13:52 Freq: Status: Active Protocol: Document 01/25/22 19:52 FLOR (Rec: 01/25/22 20:03 FLOR [id number]) Nutrition Notes Initial or Follow up Reassessment Current Diagnosis Acute Kidney Injury,Decubitus( Pressure Ulcer),Sepsis, Malnutrition Other Pertinent Diagnosis COVID-19/Pneumonia, Metabolic Acidosis, KELSIE/ATN, Dysphagia, Dementia... Current Diet TF-Nepro w/CARBSTEADY @ 30 ml/ hr (since L 01/18). Labs/Tests 01/24: Na 130, Cl 96.4, BUN 53 , Crea 2.3, Glu 130, Ca 7.5. Pertinent Medications 01/25: Vit C, Vit D3, ZnSO4, others nutritionally unremarkable. Height 5 ft 4 in Weight 48 kg [place] Body Weight (kg) 54.54 BMI 18.1 Weight change and time frame No body weight change reported in 16 days. Weight Status Underweight Subjective/Other Information RD consult for write/manage TF . TF continues as prescribed. Pt medically cleared for Discharge, but waiting for placement at SNF or Hospice.. Percent of energy/protein needs met: Prescribed TF-Nepro w/ CARBSTEADY @ 30 ml/hr provides for energy/protein needs (1, 296 Kcal/58 g) during LOS, 77% Kcal; 100% AA. Burn Absent Trauma Absent GI Symptoms None Difficulty In Swallowing Food Allergy No Skin Integrity/Comment Sacral Decubitus Current % PO Other Minimum of two criteria Yes #1 Nutrition Diagnosis Underweight Diagnosis Progress(for reassessment Continues documentation) Is patient on ventilator? No Is Patient Ambulatory and/or Out of Bed No REE-([facility]-confined to bed) 1223.568 Kcal/Kg value to use for calculation 35 Approximate Energy Requirements Using 1680 kcal/Kg Calculation Used for Recommendations Kcal/kg Additional Notes Protein: 1.2-1.5 g/Kg; 58-72 g /day. Fluids: 1 ml/Kcal, or as per MD. Nutrition Intervention Nutrition Support: Continue TF-Nepro w/CARBSTEADY @ 30 ml/hr. Flush: 130 ml water Q 4 hr, or as per MD. Kcal 1,296 Protein (gm) 58 Carbohydrates (gm) 116 Fat (gm) 69 Fluid (mL) 523 Fiber (gm) 9 % RDI: 77% Kcal; 100% AA. Goal #1 Provide at least 75% of energy /protein needs through Enteral Feeding during LOS. Goal #2 Maintain body weight within +/ -3% of admission body weight during LOS. Follow-Up By: 02/01/22 Additional Comments Continue monitoring TF tolerance and BM.
[2022-01-26] MEDS: ZINC SULFATE 220 MG CAP PO SCH ×2 (10:00→21:18)
[2022-01-26] MEDS: HEPARIN 5,000 UNIT/1 ML VIAL SUB-Q SCH ×2 (10:00→21:16)
[2022-01-26] MEDS: CHOLECALCIFEROL (VIT D3) 1000 UNIT (25 mcg) TAB PO SCH (10:00)
[2022-01-26] MEDS: LOSARTAN 50 MG TAB PO SCH (10:00)
[2022-01-26] MEDS: carvediloL 3.125 MG TAB PO SCH ×2 (10:00→21:17)
[2022-01-26] MEDS: ASCORBIC ACID 500 MG TAB PO SCH ×2 (10:00→21:17)
[2022-01-26] MEDS: amLODIPine 10 MG TAB PO SCH (10:00)
--- NOTE | 2022-01-26 11:10 | Progress Note ---
Subjective Date of service: 01/26/22 Principal diagnosis: kelsie Interval history: Impression: * Acute kidney injury secondary to COVID related ATN * Azotemia secondary to multifactorial etiologies: KELSIE vs steroids * Hyponatremia * anemia * Acute hypoxic respiratory failure secondary to COVID 19 PNA * COVID 19 infection Plan: * plan to continue HD // and prn * Na better at last check, not being done as ordered * stopped free water and d5w * follow up lytes note and crcl reveals low clearance and oligouria, continue to montitor for signs of renal recovery * Appreciate permacath placement per vascular * stop any D5W for hydration, sodium is low, needs daily lytes * Steroids per primary team * Management of COVID 19 per primary team * Avoid potential nephrotoxins * Dose medications for renal function * Outpatient HD unit placement pending-- Subjective Interval history: No acute events noted, patient resting in bed. Chart/vitals/labs reviewed in detail Objective exam deferred for preservation of PPE Objective - Vital Signs Vital signs: Vital Signs - 12hr 01/26/22 01/26/22 01/26/22 05:49 05:50 06:20 Temperature 100.2 F H Pulse Rate 87 Respiratory 18 16 18 Rate Blood Pressure 129/65 O2 Sat by Pulse 97 Oximetry O2 Sat by Pulse Oximetry [ Bilateral Throughout] 01/26/22 01/26/22 01/26/22 06:49 08:36 10:33 Temperature 97.1 F L Pulse Rate 70 Respiratory 17 20 16 Rate Blood Pressure 99/53 O2 Sat by Pulse 97 Oximetry O2 Sat by Pulse 97 Oximetry [ Bilateral Throughout] - Lab 01/26/22 04:24 01/26/22 04:24 Most recent lab results Calcium 7.7 mg/dL (8.4-10.2) L 01/26/22 04:24 Phosphorus 4.90 mg/dL (2.5-4.5) H 01/16/22 06:50 Magnesium 1.60 mg/dL (1.7-2.3) L 01/16/22 06:50 Urine Creatinine 19.6 mg/dL (0.1-20.0) 01/23/22 Unknown Medications & Allergies - Medications Allergies/Adverse Reactions: Allergies No Known Allergies Allergy (Verified 01/09/22 11:43) Home Medications: Home Medications Medication Instructions Recorded Confirmed Last Taken Type amLODIPine 10 mg PO QDAY #30 tablet 03/09/21 01/09/22 Unknown Rx carvediloL [Coreg] 3.125 mg PO BID #60 tablet 03/09/21 01/09/22 Unknown Rx Cholecalciferol Vit D3 [Vitamin D3 1,000 unit PO DAILY #30 tablet 01/16/22 Unknown Rx 1,000 UNIT TAB] Losartan [Cozaar] 50 mg PO QDAY #30 tablet 01/18/22 Unknown Rx NIFEdipine XL [Procardia Xl] 30 mg PO QDAY #30 tablet 01/18/22 Unknown Rx Active Medications: Generic Name Dose Route Start Last Admin Trade Name Freq PRN Reason Stop Dose Admin Acetaminophen 650 mg 01/09/22 15:00 01/26/22 05:49 Acetaminophen 325 Mg Tab PO 650 mg Q4H PRN Administration Pain MILD(1-3)/Fever >100.5/RILEY Albuterol 2.5 mg 01/09/22 14:25 Albuterol 2.5 Mg/3 Ml Nebu IH Q4HRT PRN Shortness Of Breath Amlodipine Besylate 10 mg 01/19/22 12:00 01/25/22 10:32 Amlodipine 10 Mg Tab PO 10 mg QDAY JARROD Administration Lipase/Protease/Amylase 1 each 01/18/22 07:11 Lipase 10,500/Protease 25,000/Amylase 43,750 (Units) Dr Stalin CRUZ PRN PRN For Clogged Feeding Tube Ascorbic Acid 500 mg 01/09/22 22:00 01/25/22 21:54 Ascorbic Acid 500 Mg Tab PO 500 mg BID JARROD Administration Carvedilol 3.125 mg 01/12/22 12:00 01/25/22 21:56 Carvedilol 3.125 Mg Tab PO 3.125 mg BID JARROD Administration Cholecalciferol 1,000 unit 01/10/22 10:00 01/25/22 10:30 Cholecalciferol (Vit D3) 1000 Unit (25 Mcg) Tab PO 1,000 unit DAILY JARROD Administration Dextrose 0 ml 01/09/22 14:48 Dextrose 10% *Hypoglycemia IV PRN PRN Hypoglycemia Heparin Sodium (Porcine) 5,000 unit 01/09/22 22:00 01/25/22 21:54 Heparin 5,000 Unit/1 Ml Vial SUB-Q 5,000 unit Q12HR JARROD Administration Hydralazine HCl 10 mg 01/12/22 11:21 Hydralazine 20 Mg/1 Ml Inj IV Q4HR PRN Hypertension Hydromorphone HCl 0.25 mg 01/09/22 15:00 01/26/22 05:50 Hydromorphone 1 Mg/1 Ml Inj IV 0.25 mg Q4H PRN Administration Pain, Moderate (4-6) Hydromorphone HCl 0.5 mg 01/09/22 15:00 Hydromorphone 1 Mg/1 Ml Inj IV Q23H PRN Pain , Severe (7-10) Sodium Chloride 100 mls @ 999 mls/hr 01/15/22 09:08 Nacl 0.9% IV MYRNA PRN Hypotension Ceftriaxone Sodium 1 gm in 50 mls @ 100 mls/hr 01/25/22 18:00 01/25/22 21:54 Rocephin/Ns 1 Gm/50 Ml IV 100 mls/hr Q24H JARROD Administration Protocol Vancomycin HCl 1 gm in 250 mls @ 167.007 mls/hr 01/26/22 18:00 Vancomycin/Ns 1 Gm/250 Ml IV 01/26/22 19:29 ONCE ONE Insulin Human Regular 0 units 01/15/22 18:00 01/26/22 06:39 Insulin Regular, Human 100 Units/1 Ml SUB-Q Not Given Q6H JARROD Protocol Losartan Potassium 50 mg 01/18/22 10:00 01/25/22 10:32 Losartan 50 Mg Tab PO 50 mg QDAY JARROD Administration Ondansetron HCl 4 mg 01/09/22 16:00 Ondansetron 4 Mg/2 Ml Inj IV Q8H PRN Nausea And Vomiting Oxycodone/Acetaminophen 1 tab 01/09/22 15:00 01/22/22 13:17 Oxycodone /Acetaminophen 5-325mg Tab PO 1 tab Q16H PRN Administration Pain, Moderate (4-6) Simple Syrup 15 ml 01/18/22 07:11 Simple Syrup 15 Ml FEEDTUBE PRN PRN Hypoglycemia Simple Syrup 30 ml 01/18/22 07:11 Simple Syrup 15 Ml FEEDTUBE PRN PRN Hypoglycemia Sodium Bicarbonate 325 mg 01/18/22 07:11 Sodium Bicarbonate 325 Mg Tab FEEDTUBE PRN PRN For Clogged Feeding Tube Sodium Chloride 10 ml 01/09/22 22:00 01/25/22 21:55 Sodium Chloride 0.9% 10 Ml Flush Syringe IV 10 ml BID JARROD Administration Sodium Chloride 10 ml 01/09/22 15:00 01/15/22 21:08 Sodium Chloride 0.9% 10 Ml Flush Syringe IV 10 ml PRN PRN Administration LINE FLUSH Zinc Sulfate 220 mg 01/09/22 22:00 01/25/22 21:54 Zinc Sulfate 220 Mg Cap PO 220 mg BID JARROD Administration
[2022-01-26] MEDS: cefTRIAXone/NS 1 GM/50 ML 1 GM/50 ML BAG IV SCH (17:13)
[2022-01-26] MEDS ORDERED: VANCOMYCIN/NS 1 GM/250 ML 1 GM/250 ML BAG IV ONE (18:00)
[2022-01-27] MEDS: INSULIN REGULAR, HUMAN 100 UNITS/1 ML SUB-Q SCH ×4 (00:26→19:07)
[2022-01-27] MEDS: HYDROmorphone 1 MG/1 ML INJ IV PRN (03:11)
[2022-01-27 06:06] LABS: Basophils % (Auto) 0.3 % (0.0-1.8); Eosinophils % (Auto) 0.9 % (0.0-4.3); Hemoglobin 6.3 gm/dl (10.1-14.3); Lymphocytes # (Auto) 0.5 K/mm3 (1.2-5.4); Lymphocytes % (Auto) 12.4 % (13.4-35.0); Mean Corpuscular HGB Conc 32 % (30-34); Mean Corpuscular Volume 86 fl (79-97); Monocytes # (Auto) 0.2 K/mm3 (0.0-0.8); Monocytes % (Auto) 5.5 % (0.0-7.3); Platelet Count 301 K/mm3 (140-440); Red Blood Count 2.27 M/mm3 (3.65-5.03); Red Cell Distribution Width 15.7 % (13.2-15.2)
[2022-01-27 06:26] LABS: Hematocrit 19.5 % (30.3-42.9)
[2022-01-27 06:29] LABS: Calcium 7.9 mg/dL (8.4-10.2)
[2022-01-27] MEDS ORDERED: SODIUM CHLORIDE 0.9% 500 ML 500 ML IV ONE ×2 (07:43→12:00)
[2022-01-27] MEDS: amLODIPine 10 MG TAB PO SCH (11:17)
[2022-01-27] MEDS: LOSARTAN 50 MG TAB PO SCH (11:18)
[2022-01-27] MEDS: carvediloL 3.125 MG TAB PO SCH ×2 (11:18→21:49)
[2022-01-27] MEDS: ZINC SULFATE 220 MG CAP PO SCH ×2 (11:19→21:48)
[2022-01-27] MEDS: HEPARIN 5,000 UNIT/1 ML VIAL SUB-Q SCH ×2 (11:19→21:50)
[2022-01-27] MEDS: ASCORBIC ACID 500 MG TAB PO SCH ×2 (11:19→21:49)
[2022-01-27] MEDS: CHOLECALCIFEROL (VIT D3) 1000 UNIT (25 mcg) TAB PO SCH (11:21)
[2022-01-27] MEDS: ACETAMINOPHEN 325 MG TAB PO PRN ×2 (11:25→21:48)
--- NOTE | 2022-01-27 12:26 | Progress Note ---
Subjective Date of service: 01/27/22 Principal diagnosis: kelsie Interval history: Impression: * Acute kidney injury secondary to COVID related ATN * Azotemia secondary to multifactorial etiologies: KELSIE vs steroids * Hyponatremia * anemia * Acute hypoxic respiratory failure secondary to COVID 19 PNA * COVID 19 infection Plan: * plans to continue HD prn if needed, last HD 3/, monitor daily lytes * Na better at last check * stopped free water and d5w * follow up lytes noted and crcl reveals low clearance and oligouria, continue to montitor for signs of renal recovery * Appreciate permacath placement per vascular * stop any D5W for hydration, sodium is low, needs daily lytes * Steroids per primary team * Management of COVID 19 per primary team * Avoid potential nephrotoxins * Dose medications for renal function * Outpatient HD unit placement difficult with diag of KELSIE, but patient is not ESRD Subjective Interval history: No acute events noted, patient resting in bed. Chart/vitals/labs reviewed in detail Objective exam deferred for preservation of PPE Objective - Vital Signs Vital signs: Vital Signs - 12hr 01/27/22 01/27/22 01/27/22 06:11 06:14 11:17 Temperature 98.7 F Pulse Rate 83 96 H Respiratory 16 Rate Blood Pressure 108/55 148/62 Blood Pressure [Left] O2 Sat by Pulse 96 95 Oximetry 01/27/22 01/27/22 11:18 11:30 Temperature 101.2 F H Pulse Rate 96 H 96 H Respiratory 16 Rate Blood Pressure 148/62 Blood Pressure 148/62 [Left] O2 Sat by Pulse Oximetry - Lab 01/27/22 05:00 01/27/22 05:00 Most recent lab results Calcium 7.9 mg/dL (8.4-10.2) L 01/27/22 05:00 Phosphorus 4.90 mg/dL (2.5-4.5) H 01/16/22 06:50 Magnesium 1.60 mg/dL (1.7-2.3) L 01/16/22 06:50 Urine Creatinine 19.6 mg/dL (0.1-20.0) 01/23/22 Unknown Medications & Allergies - Medications Allergies/Adverse Reactions: Allergies No Known Allergies Allergy (Verified 01/09/22 11:43) Home Medications: Home Medications Medication Instructions Recorded Confirmed Last Taken Type amLODIPine 10 mg PO QDAY #30 tablet 03/09/21 01/09/22 Unknown Rx carvediloL [Coreg] 3.125 mg PO BID #60 tablet 03/09/21 01/09/22 Unknown Rx Cholecalciferol Vit D3 [Vitamin D3 1,000 unit PO DAILY #30 tablet 01/16/22 Unknown Rx 1,000 UNIT TAB] Losartan [Cozaar] 50 mg PO QDAY #30 tablet 01/18/22 Unknown Rx NIFEdipine XL [Procardia Xl] 30 mg PO QDAY #30 tablet 01/18/22 Unknown Rx Active Medications: Generic Name Dose Route Start Last Admin Trade Name Freq PRN Reason Stop Dose Admin Acetaminophen 650 mg 01/09/22 15:00 01/27/22 11:25 Acetaminophen 325 Mg Tab PO 650 mg Q4H PRN Administration Pain MILD(1-3)/Fever >100.5/RILEY Albuterol 2.5 mg 01/09/22 14:25 Albuterol 2.5 Mg/3 Ml Nebu IH Q4HRT PRN Shortness Of Breath Amlodipine Besylate 10 mg 01/19/22 12:00 01/27/22 11:17 Amlodipine 10 Mg Tab PO 10 mg QDAY JARROD Administration Lipase/Protease/Amylase 1 each 01/18/22 07:11 Lipase 10,500/Protease 25,000/Amylase 43,750 (Units) Dr Gant FEEDTUBE PRN PRN For Clogged Feeding Tube Ascorbic Acid 500 mg 01/09/22 22:00 01/27/22 11:19 Ascorbic Acid 500 Mg Tab PO 500 mg BID JARROD Administration Carvedilol 3.125 mg 01/12/22 12:00 01/27/22 11:18 Carvedilol 3.125 Mg Tab PO 3.125 mg BID JARROD Administration Cholecalciferol 1,000 unit 01/10/22 10:00 01/27/22 11:21 Cholecalciferol (Vit D3) 1000 Unit (25 Mcg) Tab PO 1,000 unit DAILY JARROD Administration Dextrose 0 ml 01/09/22 14:48 Dextrose 10% *Hypoglycemia IV PRN PRN Hypoglycemia Heparin Sodium (Porcine) 5,000 unit 01/09/22 22:00 01/27/22 11:19 Heparin 5,000 Unit/1 Ml Vial SUB-Q 5,000 unit Q12HR JARROD Administration Hydralazine HCl 10 mg 01/12/22 11:21 Hydralazine 20 Mg/1 Ml Inj IV Q4HR PRN Hypertension Hydromorphone HCl 0.25 mg 01/09/22 15:00 01/27/22 03:11 Hydromorphone 1 Mg/1 Ml Inj IV 0.25 mg Q4H PRN Administration Pain, Moderate (4-6) Hydromorphone HCl 0.5 mg 01/09/22 15:00 Hydromorphone 1 Mg/1 Ml Inj IV Q23H PRN Pain , Severe (7-10) Sodium Chloride 100 mls @ 999 mls/hr 01/15/22 09:08 Nacl 0.9% IV MYRNA PRN Hypotension Ceftriaxone Sodium 1 gm in 50 mls @ 100 mls/hr 01/25/22 18:00 01/26/22 17:13 Rocephin/Ns 1 Gm/50 Ml IV 100 mls/hr Q24H JARROD Administration Protocol Insulin Human Regular 0 units 01/15/22 18:00 01/27/22 06:57 Insulin Regular, Human 100 Units/1 Ml SUB-Q Not Given Q6H [facility] Protocol Losartan Potassium 50 mg 01/18/22 10:00 01/27/22 11:18 Losartan 50 Mg Tab PO 50 mg QDAY JARROD Administration Ondansetron HCl 4 mg 01/09/22 16:00 Ondansetron 4 Mg/2 Ml Inj IV Q8H PRN Nausea And Vomiting Oxycodone/Acetaminophen 1 tab 01/09/22 15:00 01/22/22 13:17 Oxycodone /Acetaminophen 5-325mg Tab PO 1 tab Q16H PRN Administration Pain, Moderate (4-6) Simple Syrup 15 ml 01/18/22 07:11 Simple Syrup 15 Ml FEEDTUBE PRN PRN Hypoglycemia Simple Syrup 30 ml 01/18/22 07:11 Simple Syrup 15 Ml FEEDTUBE PRN PRN Hypoglycemia Sodium Bicarbonate 325 mg 01/18/22 07:11 Sodium Bicarbonate 325 Mg Tab FEEDTUBE PRN PRN For Clogged Feeding Tube Sodium Chloride 10 ml 01/09/22 22:00 01/27/22 11:20 Sodium Chloride 0.9% 10 Ml Flush Syringe IV 10 ml BID JARROD Administration Sodium Chloride 10 ml 01/09/22 15:00 01/15/22 21:08 Sodium Chloride 0.9% 10 Ml Flush Syringe IV 10 ml PRN PRN Administration LINE FLUSH Zinc Sulfate 220 mg 01/09/22 22:00 01/27/22 11:19 Zinc Sulfate 220 Mg Cap PO 220 mg BID JARROD Administration
[2022-01-27] MEDS: cefTRIAXone/NS 1 GM/50 ML 1 GM/50 ML BAG IV SCH (19:10)
[2022-01-28] MEDS: INSULIN REGULAR, HUMAN 100 UNITS/1 ML SUB-Q SCH ×3 (00:09→12:23)
[2022-01-28] MEDS: HYDROmorphone 1 MG/1 ML INJ IV PRN (04:29)
[2022-01-28 07:39] LABS: Basophils % (Auto) 0.3 % (0.0-1.8); Eosinophils # (Auto) 0.1 K/mm3 (0.0-0.4); Hematocrit 24.5 % (30.3-42.9); Hemoglobin 8.4 gm/dl (10.1-14.3); Lymphocytes # (Auto) 0.5 K/mm3 (1.2-5.4); Lymphocytes % (Auto) 13.4 % (13.4-35.0); Mean Corpuscular HGB Conc 34 % (30-34); Mean Corpuscular Volume 86 fl (79-97); Monocytes # (Auto) 0.2 K/mm3 (0.0-0.8); Platelet Count 230 K/mm3 (140-440); Red Blood Count 2.86 M/mm3 (3.65-5.03)
[2022-01-28 07:51] LABS: Calcium 7.9 mg/dL (8.4-10.2)
--- NOTE | 2022-01-28 08:00 | Progress Note ---
Assessment and Plan Assessment and plan: #Sepsis #COVID-19 infection #Pneumonia -patient defervesing since abx restarted -repeat blood culture NGTD x 48hrs -culture tip collected on 01/25 growing staph epi; may be skin contaminant -ID re-consulted for further recommendations -s/p doxycycline/rocephin; continue vancomycin for now pending ID recs -s/p steroids; vitamins for COVID infection did not receive remdesivir due to kidney function #Normocytic anemia -Hgb stable at 8.4 -will transfuse for Hgb less than 7 #Hyponatremia -resolved -likely secondary to prolonged free water administration -will continue to monitor #Acute respiratory failure with hypoxia-resolved -currently weaned to RA -continuous pulse ox -likely secondary to COVID PNA vs bacterial PNA #Acute metabolic encephalopathy-resolved #hx of Vascular dementia #Cerebral atherosclerosis -multifactorial; acute change likely secondary to infection -will continue to monitor #Acute kidney injury vs progressing CKD -Renal US showed medical renal disease -avoid nephrotoxins and will renally dose medications -Nephrology following, assistance appreciated -Initiated hemodialysis on 01/15/2022. Status post triple-lumen HD catheter replacement with permacath by vascular surgery. -HD chair declined due to diagnosis of acute kidney injury, will monitor for signs of recovery #Metabolic acidosis -secondary to renal failure #Dysphagia -Currently with PEG tube -continue tube feeds -Nutrition consult #Severe protein-calorie malnutrition -albumin 2.0 -continue TF, Nutrition managing #Sacral decubitus ulcer -Continue wound care #Discharge planning -Patient family decided with hospice, awaiting approval. Patient will be discharged to [place] with [facility] following. History Interval history: No acute events overnight per nursing. Patient opens eyes to verbal stimulation. Nonverbal. Hospitalist Physical - Physical exam Narrative exam: GENERAL: Cachexic. In no acute distress. NECK: L permacath CHEST/LUNGS: CTAB on RA HEART/CARDIOVASCULAR: RRR. No murmur, rubs or gallops appreciated. ABDOMEN: PEG tube. +BS. NT/ND. NEURO: Unable to assess. MUSCULOSKELETAL: No joint effusion EXTREMITIES: No cyanosis, clubbing or edema. PSYCH: Alert - Constitutional Vitals: Temp Pulse Resp BP Pulse Ox 99.1 F 88 20 122/56 96 01/28/22 04:42 01/28/22 04:42 01/28/22 04:42 01/28/22 04:42 01/28/22 04:42 General appearance: Present: no acute distress, cachectic HEART Score - HEART Score Troponin: Troponin T 0.064 ng/mL (0.00-0.029) H 01/12/22 02:03 Results - Labs CBC & Chem 7: 01/28/22 07:22 01/28/22 07:22 Labs: Laboratory Last Values WBC 4.0 K/mm3 (4.5-11.0) L 01/28/22 07: RBC 2.86 M/mm3 (3.65-5.03) L 01/28/22 07: Hgb 8.4 gm/dl (10.1-14.3) L 01/28/22 07: Hct 24.5 % (30.3-42.9) L 01/28/22 07: MCV 86 fl (79-97) 01/28/22 07: MCH 29 pg (28-32) 01/28/22 07: MCHC 34 % (30-34) 01/28/22 07: RDW 15.0 % (13.2-15.2) 01/28/22 07: Plt Count 230 K/mm3 (140-440) 01/28/22 07:22 Lymph % (Auto) 13.4 % (13.4-35.0) 01/28/22 07: [place] % (Auto) 5.0 % (0.0-7.3) 01/28/22 07: Eos % (Auto) 2.0 % (0.0-4.3) 01/28/22: Baso % (Auto) 0.3 % (0.0-1.8) 01/28/22: Lymph # (Auto) 0.5 K/mm3 (1.2-5.4) L 01/28/22: [place] # (Auto) 0.2 K/mm3 (0.0-0.8) 01/28/22 07:22 Eos # (Auto) 0.1 K/mm3 (0.0-0.4) 01/28/22 07: Baso # (Auto) 0.0 K/mm3 (0.0-0.1) 01/28/22 07:22 Add Manual Diff Complete 01/24/22 05:30 Total Counted 100 01/24/22 05:30 Seg Neutrophils % 79.3 % (40.0-70.0) H 01/28/22 07:22 Seg Neuts % (Manual) 97.0 % (40.0-70.0) H 01/24/22 05:30 Band Neutrophils % 0 % 01/24/22 05:30 Lymphocytes % (Manual) 1.0 % (13.4-35.0) L 01/24/22 05:30 Reactive Lymphs % (Man) 0 % 01/24/22 05:30 Monocytes % (Manual) 2.0 % (0.0-7.3) 01/24/22 05:30 Eosinophils % (Manual) 0 % (0.0-4.3) 01/24/22 05:30 Basophils % (Manual) 0 % (0.0-1.8) 01/24/22 05:30 Metamyelocytes % 0 % 01/24/22 05:30 Myelocytes % 0 % 01/24/22 05:30 Promyelocytes % 0 % 01/24/22 05:30 Blast Cells % 0 % 01/24/22 05:30 Nucleated RBC % Not Reportable 01/24/22 05:30 Seg Neutrophils # 3.2 K/mm3 (1.8-7.7) 01/28/22 07:22 Seg Neutrophils # Man 9.4 K/mm3 (1.8-7.7) H 01/24/22 05:30 Band Neutrophils # 0.0 K/mm3 01/24/22 05:30 Lymphocytes # (Manual) 0.1 K/mm3 (1.2-5.4) L 01/24/22 05:30 Abs React Lymphs (Man) 0.0 K/mm3 01/24/22 05:30 Monocytes # (Manual) 0.2 K/mm3 (0.0-0.8) 01/24/22 05:30 Eosinophils # (Manual) 0.0 K/mm3 (0.0-0.4) 01/24/22 05:30 Basophils # (Manual) 0.0 K/mm3 (0.0-0.1) 01/24/22 05:30 Metamyelocytes # 0.0 K/mm3 01/24/22 05:30 Myelocytes # 0.0 K/mm3 01/24/22 05:30 Promyelocytes # 0.0 K/mm3 01/24/22 05:30 Blast Cells # 0.0 K/mm3 01/24/22 05:30 WBC Morphology Not Reportable 01/24/22 05:30 Hypersegmented Neuts Not Reportable 01/24/22 05:30 Hyposegmented Neuts Not Reportable 01/24/22 05:30 Hypogranular Neuts Not Reportable 01/24/22 05:30 Smudge Cells Not Reportable 01/24/22 05:30 Toxic Granulation 3+ 01/24/22 05:30 Toxic Vacuolation 1+ 01/24/22 05:30 Dohle Bodies Not Reportable 01/24/22 05:30 Pelger-Huet Anomaly Not Reportable 01/24/22 05:30 Lesley Rods Not Reportable 01/24/22 05:30 Platelet Estimate Consistent w auto 01/24/22 05:30 Clumped Platelets Rare 01/24/22 05:30 Plt Clumps, EDTA Not Reportable 01/24/22 05:30 Large Platelets Not Reportable 01/24/22 05:30 Giant Platelets Not Reportable 01/24/22 05:30 Platelet Satelliting Not Reportable 01/24/22 05:30 Plt Morphology Comment Not Reportable 01/24/22 05:30 RBC Morphology Not Reportable 01/24/22 05:30 Dimorphic RBCs Not Reportable 01/24/22 05:30 Polychromasia Not Reportable 01/24/22 05:30 Hypochromasia 1+ 01/24/22 05:30 Poikilocytosis Not Reportable 01/24/22 05:30 Anisocytosis 1+ 01/24/22 05:30 Microcytosis Not Reportable 01/24/22 05:30 Macrocytosis Not Reportable 01/24/22 05:30 Spherocytes Not Reportable 01/24/22 05:30 Pappenheimer Bodies Not Reportable 01/24/22 05:30 Sickle Cells Not Reportable 01/24/22 05:30 Target Cells Not Reportable 01/24/22 05:30 Tear Drop Cells Not Reportable 01/24/22 05:30 Ovalocytes Not Reportable 01/24/22 05:30 Helmet Cells Not Reportable 01/24/22 05:30 Hammonds-[place] Bodies Not Reportable 01/24/22 05:30 [place] Rings Not Reportable 01/24/22 05:30 Hussein Cells Not Reportable 01/24/22 05:30 Bite Cells Not Reportable 01/24/22 05:30 Crenated Cell Not Reportable 01/24/22 05:30 Elliptocytes Not Reportable 01/24/22 05:30 Acanthocytes (Spur) Not Reportable 01/24/22 05:30 Rouleaux Not Reportable 01/24/22 05:30 Hemoglobin C Crystals Not Reportable 01/24/22 05:30 Schistocytes Not Reportable 01/24/22 05:30 Malaria parasites Not Reportable 01/24/22 05:30 Artemio Bodies Not Reportable 01/24/22 05:30 Hem Pathologist Commnt No 01/24/22 05:30 APTT 29.2 Sec. (24.2-36.6) 01/09/22 12:50 D-Dimer 4886.79 ng/mlDDU (0-234) H 01/11/22 07:58 Sodium 136 mmol/L (137-145) L 01/28/22 07:22 Potassium 3.5 mmol/L (3.6-5.0) L 01/28/22 07:22 Chloride 98.6 mmol/L (98-107) 01/28/22 07:22 Carbon Dioxide 27 mmol/L (22-30) 01/28/22 07:22 Anion Gap 14 mmol/L 01/28/22 07:22 BUN 39 mg/dL (7-17) H 01/28/22 07:22 Creatinine 2.0 mg/dL (0.6-1.2) H 01/28/22 07:22 Estimated GFR 30 ml/min 01/28/22 07:22 BUN/Creatinine Ratio 20 % 01/28/22 07:22 Glucose 117 mg/dL (65-100) H 01/28/22 07:22 POC Glucose 118 mg/dL (70-105) H 01/27/22 23:26 Lactic Acid 1.40 mmol/L (0.7-2.0) 01/09/22 12:50 Calcium 7.9 mg/dL (8.4-10.2) L 01/28/22 07:22 Phosphorus 4.90 mg/dL (2.5-4.5) H 01/16/22 06:50 Magnesium 1.60 mg/dL (1.7-2.3) L 01/16/22 06:50 Ferritin 2182.0 ng/mL (10.0-200.0) H 01/11/22 07:58 Total Bilirubin 0.20 mg/dL (0.1-1.2) 01/09/22 12:50 Direct Bilirubin < 0.2 mg/dL (0-0.2) 01/09/22 12:50 Indirect Bilirubin 0.0 mg/dL 01/09/22 12:50 AST 75 units/L (5-40) H 01/09/22 12:50 ALT 31 units/L (7-56) 01/09/22 12:50 Alkaline Phosphatase 69 units/L (35-129) 01/09/22 12:50 Lactate Dehydrogenase 332 units/L (91-180) H 01/11/22 07:58 Troponin T 0.064 ng/mL (0.00-0.029) H 01/12/22 02:03 C-Reactive Protein 30.40 mg/dL (0.00-1.30) H 01/11/22 07:58 NT-Pro-B Natriuret Pep 608.7 pg/mL (0-900) 01/09/22 12:50 Total Protein 7.9 g/dL (6.3-8.2) 01/09/22 12:50 Albumin 2.0 g/dL (3.9-5) L 01/09/22 12:50 Albumin/Globulin Ratio 0.3 % 01/09/22 12:50 Triglycerides 442 mg/dL (2-149) H 01/12/22 02:03 Cholesterol 132 mg/dL (50-199) 01/12/22 02:03 LDL Cholesterol Direct TNR 01/12/22 02:03 HDL Cholesterol 14 mg/dL (40-59) L 01/12/22 02:03 Cholesterol/HDL Ratio 9.42 % 01/12/22 02:03 Procalcitonin > 200.00 ng/mL (<0.15) 01/11/22 07:58 Urine Color Yellow (Yellow) 01/09/22 13:52 Urine Turbidity Hazy (Clear) 01/09/22 13:52 Urine pH 6.0 (5.0-7.0) 01/09/22 13:52 Ur Specific [place] 1.020 (1.003-1.030) 01/09/22 13:52 Urine Protein 100 mg/dl mg/dL (Negative) 01/09/22 13:52 Urine Glucose (UA) Neg mg/dL (Negative) 01/09/22 13:52 Urine Ketones Neg mg/dL (Negative) 01/09/22 13:52 Urine Blood Neg (Negative) 01/09/22 13:52 Urine Nitrite Neg (Negative) 01/09/22 13:52 Urine Bilirubin Neg (Negative) 01/09/22 13:52 Urine Urobilinogen < 2.0 mg/dL (<2.0) 01/09/22 13:52 Ur Leukocyte Esterase Neg (Negative) 01/09/22 13:52 Urine WBC (Auto) 4.0 /HPF (0.0-6.0) 01/09/22 13:52 Urine RBC (Auto) 3.0 /HPF (0.0-6.0) 01/09/22 13:52 U Epithel Cells (Auto) 2.0 /HPF (0-13.0) 01/09/22 13:52 Urine Bacteria (Auto) 1+ /HPF (Negative) 01/09/22 13:52 Urine Mucus Few /HPF 01/09/22 13:52 Urine Total Volume 520 ml 01/23/22 Unknown Urine Creatinine 19.6 mg/dL (0.1-20.0) 01/23/22 Unknown Ur Creatinine 24 Hour 0.1 (0.8-2.8) L 01/23/22 Unknown Random Vancomycin 4.0 ug/mL (0-40.0) 01/28/22 07:22 C. difficile Tox (PCR) Negative (Negative) 01/16/22 10:30 Coronavirus (PCR) Negative (Negative) 01/25/22 08:00 Hepatitis A IgM Ab Non-reactive (NonReactive) 01/14/22 Unknown Hep Bs Antigen Non-reactive (Negative) 01/14/22 Unknown Hep B Core IgM Ab Non-reactive (NonReactive) 01/14/22 Unknown Hepatitis C Antibody Non-reactive (NonReactive) 01/14/22 Unknown Blood Type B POSITIVE 01/27/22 06:54 Antibody Screen Negative 01/27/22 06:54 Crossmatch See Detail 01/27/22 06:54 Microbiology: Microbiology 01/25/22 16:23 Peripheral/Venous Blood Culture - Preliminary NO GROWTH AFTER 48 HOURS 01/25/22 16:23 Peripheral/Venous Blood Culture - Preliminary NO GROWTH AFTER 48 HOURS 01/25/22 18:00 Central Venous Line Catheter Tip Culture - Preliminary Coag Negative Staphylococcus Samuel/IV: Voiding Method External Female Catheter Active Medications - Current Medications Current Medications: Generic Name Dose Route Start Last Admin Trade Name Freq PRN Reason Stop Dose Admin Acetaminophen 650 mg 01/09/22 15:00 01/27/22 21:48 Acetaminophen 325 Mg Tab PO 650 mg Q4H PRN Administration Pain MILD(1-3)/Fever >100.5/RILEY Albuterol 2.5 mg 01/09/22 14:25 Albuterol 2.5 Mg/3 Ml Nebu IH Q4HRT PRN Shortness Of Breath Amlodipine Besylate 10 mg 01/19/22 12:00 01/27/22 11:17 Amlodipine 10 Mg Tab PO 10 mg QDAY JARROD Administration Lipase/Protease/Amylase 1 each 01/18/22 07:11 Lipase 10,500/Protease 25,000/Amylase 43,750 (Units) Dr Gant FEEDTUBE PRN PRN For Clogged Feeding Tube Ascorbic Acid 500 mg 01/09/22 22:00 01/27/22 21:49 Ascorbic Acid 500 Mg Tab PO 500 mg BID JARROD Administration Carvedilol 3.125 mg 01/12/22 12:00 01/27/22 21:49 Carvedilol 3.125 Mg Tab PO 3.125 mg BID JARROD Administration Cholecalciferol 1,000 unit 01/10/22 10:00 01/27/22 11:21 Cholecalciferol (Vit D3) 1000 Unit (25 Mcg) Tab PO 1,000 unit DAILY JARROD Administration Dextrose 0 ml 01/09/22 14:48 Dextrose 10% *Hypoglycemia IV PRN PRN Hypoglycemia Heparin Sodium (Porcine) 5,000 unit 01/09/22 22:00 01/27/22 21:50 Heparin 5,000 Unit/1 Ml Vial SUB-Q 5,000 unit Q12HR JARROD Administration Hydralazine HCl 10 mg 01/12/22 11:21 Hydralazine 20 Mg/1 Ml Inj IV Q4HR PRN Hypertension Hydromorphone HCl 0.25 mg 01/09/22 15:00 01/28/22 04:29 Hydromorphone 1 Mg/1 Ml Inj IV 0.25 mg Q4H PRN Administration Pain, Moderate (4-6) Hydromorphone HCl 0.5 mg 01/09/22 15:00 Hydromorphone 1 Mg/1 Ml Inj IV Q23H PRN Pain , Severe (7-10) Sodium Chloride 100 mls @ 999 mls/hr 01/15/22 09:08 Nacl 0.9% IV MYRNA PRN Hypotension Ceftriaxone Sodium 1 gm in 50 mls @ 100 mls/hr 01/25/22 18:00 01/27/22 23:57 Rocephin/Ns 1 Gm/50 Ml IV Infused Q24H [facility] Infusion Protocol Insulin Human Regular 0 units 01/15/22 18:00 01/28/22 06:45 Insulin Regular, Human 100 Units/1 Ml SUB-Q Not Given Q6H [facility] Protocol Losartan Potassium 50 mg 01/18/22 10:00 01/27/22 11:18 Losartan 50 Mg Tab PO 50 mg QDAY JARROD Administration Ondansetron HCl 4 mg 01/09/22 16:00 Ondansetron 4 Mg/2 Ml Inj IV Q8H PRN Nausea And Vomiting Oxycodone/Acetaminophen 1 tab 01/09/22 15:00 01/22/22 13:17 Oxycodone /Acetaminophen 5-325mg Tab PO 1 tab Q16H PRN Administration Pain, Moderate (4-6) Simple Syrup 15 ml 01/18/22 07:11 Simple Syrup 15 Ml FEEDTUBE PRN PRN Hypoglycemia Simple Syrup 30 ml 01/18/22 07:11 Simple Syrup 15 Ml FEEDTUBE PRN PRN Hypoglycemia Sodium Bicarbonate 325 mg 01/18/22 07:11 Sodium Bicarbonate 325 Mg Tab FEEDTUBE PRN PRN For Clogged Feeding Tube Sodium Chloride 10 ml 01/09/22 22:00 01/27/22 21:50 Sodium Chloride 0.9% 10 Ml Flush Syringe IV 10 ml BID JARROD Administration Sodium Chloride 10 ml 01/09/22 15:00 01/15/22 21:08 Sodium Chloride 0.9% 10 Ml Flush Syringe IV 10 ml PRN PRN Administration LINE FLUSH Zinc Sulfate 220 mg 01/09/22 22:00 01/27/22 21:48 Zinc Sulfate 220 Mg Cap PO 220 mg BID JARROD Administration Nutrition/Malnutrition Assess - Dietary Evaluation Nutrition/Malnutrition Findings: Nutrition Notes Start: 01/10/22 13:52 Freq: Status: Active Protocol: Document 01/25/22 19:52 FLOR (Rec: 01/25/22 20:03 FLOR [id number]) Nutrition Notes Initial or Follow up Reassessment Current Diagnosis Acute Kidney Injury,Decubitus( Pressure Ulcer),Sepsis, Malnutrition Other Pertinent Diagnosis COVID-19/Pneumonia, Metabolic Acidosis, KELSIE/ATN, Dysphagia, Dementia... Current Diet TF-Nepro w/CARBSTEADY @ 30 ml/ hr (since L 01/18). Labs/Tests 01/24: Na 130, Cl 96.4, BUN 53 , Crea 2.3, Glu 130, Ca 7.5. Pertinent Medications 01/25: Vit C, Vit D3, ZnSO4, others nutritionally unremarkable. Height 5 ft 4 in Weight 48 kg [place] Body Weight (kg) 54.54 BMI 18.1 Weight change and time frame No body weight change reported in 16 days. Weight Status Underweight Subjective/Other Information RD consult for write/manage TF . TF continues as prescribed. Pt medically cleared for Discharge, but waiting for placement at SNF or Hospice.. Percent of energy/protein needs met: Prescribed TF-Nepro w/ CARBSTEADY @ 30 ml/hr provides for energy/protein needs (1, 296 Kcal/58 g) during LOS, 77% Kcal; 100% AA. Burn Absent Trauma Absent GI Symptoms None Difficulty In Swallowing Food Allergy No Skin Integrity/Comment Sacral Decubitus Current % PO Other Minimum of two criteria Yes #1 Nutrition Diagnosis Underweight Diagnosis Progress(for reassessment Continues documentation) Is patient on ventilator? No Is Patient Ambulatory and/or Out of Bed No REE-([facility]-confined to bed) 1223.568 Kcal/Kg value to use for calculation 35 Approximate Energy Requirements Using 1680 kcal/Kg Calculation Used for Recommendations Kcal/kg Additional Notes Protein: 1.2-1.5 g/Kg; 58-72 g /day. Fluids: 1 ml/Kcal, or as per MD. Nutrition Intervention Nutrition Support: Continue TF-Nepro w/CARBSTEADY @ 30 ml/hr. Flush: 130 ml water Q 4 hr, or as per MD. Kcal 1,296 Protein (gm) 58 Carbohydrates (gm) 116 Fat (gm) 69 Fluid (mL) 523 Fiber (gm) 9 % RDI: 77% Kcal; 100% AA. Goal #1 Provide at least 75% of energy /protein needs through Enteral Feeding during LOS. Goal #2 Maintain body weight within +/ -3% of admission body weight during LOS. Follow-Up By: 02/01/22 Additional Comments Continue monitoring TF tolerance and BM.
--- NOTE | 2022-01-28 08:00 | Progress Note ---
Assessment and Plan Assessment and plan: #Sepsis #COVID-19 infection #Pneumonia -patient with fever to 101 -repeat blood culture and tip culture collected on 01/25 NGTD x 24hrs -s/p doxycycline and rocephin; restarted vanc/rocephin for now; will discontinue if patient afebrile x 48hrs -s/p steroids; vitamins for COVID infection did not receive remdesivir due to kidney function #Normocytic anemia -Hgb dropped, 1 unit of pRBC ordered -will transfuse for Hgb less than 7 #Hyponatremia -resolved -likely secondary to prolonged free water administration -will continue to monitor #Acute respiratory failure with hypoxia-resolved -currently weaned to RA -continuous pulse ox -likely secondary to COVID PNA vs bacterial PNA #Acute metabolic encephalopathy-resolved #hx of Vascular dementia #Cerebral atherosclerosis -multifactorial; acute change likely secondary to infection -will continue to monitor #Acute kidney injury vs progressing CKD -Renal US showed medical renal disease -avoid nephrotoxins and will renally dose medications -Nephrology following, assistance appreciated -Initiated hemodialysis on 01/15/2022. Status post triple-lumen HD catheter replacement with permacath by vascular surgery. -HD chair declined due to diagnosis of acute kidney injury, will monitor for signs of recovery #Metabolic acidosis -secondary to renal failure #Dysphagia -Currently with PEG tube -continue tube feeds -Nutrition consult #Severe protein-calorie malnutrition -albumin 2.0 -continue TF, Nutrition managing #Sacral decubitus ulcer -Continue wound care #Discharge planning -Patient family decided with hospice, awaiting approval. Patient will be discharged to [facility] with [facility] agency following. History Interval history: No acute events overnight per nursing. Patient opens eyes to verbal stimulation. Nonverbal. Hospitalist Physical - Physical exam Narrative exam: GENERAL: Cachexic. In no acute distress. NECK: L permacath CHEST/LUNGS: CTAB on RA HEART/CARDIOVASCULAR: RRR. No murmur, rubs or gallops appreciated. ABDOMEN: PEG tube. +BS. NT/ND. NEURO: Unable to assess. MUSCULOSKELETAL: No joint effusion EXTREMITIES: No cyanosis, clubbing or edema. PSYCH: Alert - Constitutional Vitals: Temp Pulse Resp BP Pulse Ox 99.1 F 88 20 122/56 96 01/28/22 04:42 01/28/22 04:42 01/28/22 04:42 01/28/22 04:42 01/28/22 04:42 General appearance: Present: no acute distress, cachectic HEART Score - HEART Score Troponin: Troponin T 0.064 ng/mL (0.00-0.029) H 01/12/22 02:03 Results - Labs CBC & Chem 7: 01/28/22 07:22 01/28/22 07:22 Labs: Laboratory Last Values WBC 4.0 K/mm3 (4.5-11.0) L 01/28/22 07: RBC 2.86 M/mm3 (3.65-5.03) L 01/28/22 07: Hgb 8.4 gm/dl (10.1-14.3) L 01/28/22 07: Hct 24.5 % (30.3-42.9) L 01/28/22 07: MCV 86 fl (79-97) 01/28/22 07: MCH 29 pg (28-32) 01/28/22 07: MCHC 34 % (30-34) 01/28/22 07: RDW 15.0 % (13.2-15.2) 01/28/22 07: Plt Count 230 K/mm3 (140-440) 01/28/22 07:22 Lymph % (Auto) 13.4 % (13.4-35.0) 01/28/22 07: [place] % (Auto) 5.0 % (0.0-7.3) 01/28/22 07: Eos % (Auto) 2.0 % (0.0-4.3) 01/28/22: Baso % (Auto) 0.3 % (0.0-1.8) 01/28/22 07: Lymph # (Auto) 0.5 K/mm3 (1.2-5.4) L 01/28/22 07: [place] # (Auto) 0.2 K/mm3 (0.0-0.8) 01/28/22 07: Eos # (Auto) 0.1 K/mm3 (0.0-0.4) 01/28/22 07:22 Baso # (Auto) 0.0 K/mm3 (0.0-0.1) 01/28/22 07:22 Add Manual Diff Complete 01/24/22 05:30 Total Counted 100 01/24/22 05:30 Seg Neutrophils % 79.3 % (40.0-70.0) H 01/28/22 07:22 Seg Neuts % (Manual) 97.0 % (40.0-70.0) H 01/24/22 05:30 Band Neutrophils % 0 % 01/24/22 05:30 Lymphocytes % (Manual) 1.0 % (13.4-35.0) L 01/24/22 05:30 Reactive Lymphs % (Man) 0 % 01/24/22 05:30 Monocytes % (Manual) 2.0 % (0.0-7.3) 01/24/22 05:30 Eosinophils % (Manual) 0 % (0.0-4.3) 01/24/22 05:30 Basophils % (Manual) 0 % (0.0-1.8) 01/24/22 05:30 Metamyelocytes % 0 % 01/24/22 05:30 Myelocytes % 0 % 01/24/22 05:30 Promyelocytes % 0 % 01/24/22 05:30 Blast Cells % 0 % 01/24/22 05:30 Nucleated RBC % Not Reportable 01/24/22 05:30 Seg Neutrophils # 3.2 K/mm3 (1.8-7.7) 01/28/22 07:22 Seg Neutrophils # Man 9.4 K/mm3 (1.8-7.7) H 01/24/22 05:30 Band Neutrophils # 0.0 K/mm3 01/24/22 05:30 Lymphocytes # (Manual) 0.1 K/mm3 (1.2-5.4) L 01/24/22 05:30 Abs React Lymphs (Man) 0.0 K/mm3 01/24/22 05:30 Monocytes # (Manual) 0.2 K/mm3 (0.0-0.8) 01/24/22 05:30 Eosinophils # (Manual) 0.0 K/mm3 (0.0-0.4) 01/24/22 05:30 Basophils # (Manual) 0.0 K/mm3 (0.0-0.1) 01/24/22 05:30 Metamyelocytes # 0.0 K/mm3 01/24/22 05:30 Myelocytes # 0.0 K/mm3 01/24/22 05:30 Promyelocytes # 0.0 K/mm3 01/24/22 05:30 Blast Cells # 0.0 K/mm3 01/24/22 05:30 WBC Morphology Not Reportable 01/24/22 05:30 Hypersegmented Neuts Not Reportable 01/24/22 05:30 Hyposegmented Neuts Not Reportable 01/24/22 05:30 Hypogranular Neuts Not Reportable 01/24/22 05:30 Smudge Cells Not Reportable 01/24/22 05:30 Toxic Granulation 3+ 01/24/22 05:30 Toxic Vacuolation 1+ 01/24/22 05:30 Dohle Bodies Not Reportable 01/24/22 05:30 Pelger-Huet Anomaly Not Reportable 01/24/22 05:30 Lesley Rods Not Reportable 01/24/22 05:30 Platelet Estimate Consistent w auto 01/24/22 05:30 Clumped Platelets Rare 01/24/22 05:30 Plt Clumps, EDTA Not Reportable 01/24/22 05:30 Large Platelets Not Reportable 01/24/22 05:30 Giant Platelets Not Reportable 01/24/22 05:30 Platelet Satelliting Not Reportable 01/24/22 05:30 Plt Morphology Comment Not Reportable 01/24/22 05:30 RBC Morphology Not Reportable 01/24/22 05:30 Dimorphic RBCs Not Reportable 01/24/22 05:30 Polychromasia Not Reportable 01/24/22 05:30 Hypochromasia 1+ 01/24/22 05:30 Poikilocytosis Not Reportable 01/24/22 05:30 Anisocytosis 1+ 01/24/22 05:30 Microcytosis Not Reportable 01/24/22 05:30 Macrocytosis Not Reportable 01/24/22 05:30 Spherocytes Not Reportable 01/24/22 05:30 Pappenheimer Bodies Not Reportable 01/24/22 05:30 Sickle Cells Not Reportable 01/24/22 05:30 Target Cells Not Reportable 01/24/22 05:30 Tear Drop Cells Not Reportable 01/24/22 05:30 Ovalocytes Not Reportable 01/24/22 05:30 Helmet Cells Not Reportable 01/24/22 05:30 Hammonds-[place] Bodies Not Reportable 01/24/22 05:30 Diablo Rings Not Reportable 01/24/22 05:30 Sharon Cells Not Reportable 01/24/22 05:30 Bite Cells Not Reportable 01/24/22 05:30 Crenated Cell Not Reportable 01/24/22 05:30 Elliptocytes Not Reportable 01/24/22 05:30 Acanthocytes (Spur) Not Reportable 01/24/22 05:30 Rouleaux Not Reportable 01/24/22 05:30 Hemoglobin C Crystals Not Reportable 01/24/22 05:30 Schistocytes Not Reportable 01/24/22 05:30 Malaria parasites Not Reportable 01/24/22 05:30 Artemio Bodies Not Reportable 01/24/22 05:30 Hem Pathologist Commnt No 01/24/22 05:30 APTT 29.2 Sec. (24.2-36.6) 01/09/22 12:50 D-Dimer 4886.79 ng/mlDDU (0-234) H 01/11/22 07:58 Sodium 136 mmol/L (137-145) L 01/28/22 07:22 Potassium 3.5 mmol/L (3.6-5.0) L 01/28/22 07:22 Chloride 98.6 mmol/L (98-107) 01/28/22 07:22 Carbon Dioxide 27 mmol/L (22-30) 01/28/22 07:22 Anion Gap 14 mmol/L 01/28/22 07:22 BUN 39 mg/dL (7-17) H 01/28/22 07:22 Creatinine 2.0 mg/dL (0.6-1.2) H 01/28/22 07:22 Estimated GFR 30 ml/min 01/28/22 07:22 BUN/Creatinine Ratio 20 % 01/28/22 07:22 Glucose 117 mg/dL (65-100) H 01/28/22 07:22 POC Glucose 118 mg/dL (70-105) H 01/27/22 23:26 Lactic Acid 1.40 mmol/L (0.7-2.0) 01/09/22 12:50 Calcium 7.9 mg/dL (8.4-10.2) L 01/28/22 07:22 Phosphorus 4.90 mg/dL (2.5-4.5) H 01/16/22 06:50 Magnesium 1.60 mg/dL (1.7-2.3) L 01/16/22 06:50 Ferritin 2182.0 ng/mL (10.0-200.0) H 01/11/22 07:58 Total Bilirubin 0.20 mg/dL (0.1-1.2) 01/09/22 12:50 Direct Bilirubin < 0.2 mg/dL (0-0.2) 01/09/22 12:50 Indirect Bilirubin 0.0 mg/dL 01/09/22 12:50 AST 75 units/L (5-40) H 01/09/22 12:50 ALT 31 units/L (7-56) 01/09/22 12:50 Alkaline Phosphatase 69 units/L (35-129) 01/09/22 12:50 Lactate Dehydrogenase 332 units/L (91-180) H 01/11/22 07:58 Troponin T 0.064 ng/mL (0.00-0.029) H 01/12/22 02:03 C-Reactive Protein 30.40 mg/dL (0.00-1.30) H 01/11/22 07:58 NT-Pro-B Natriuret Pep 608.7 pg/mL (0-900) 01/09/22 12:50 Total Protein 7.9 g/dL (6.3-8.2) 01/09/22 12:50 Albumin 2.0 g/dL (3.9-5) L 01/09/22 12:50 Albumin/Globulin Ratio 0.3 % 01/09/22 12:50 Triglycerides 442 mg/dL (2-149) H 01/12/22 02:03 Cholesterol 132 mg/dL (50-199) 01/12/22 02:03 LDL Cholesterol Direct TNR 01/12/22 02:03 HDL Cholesterol 14 mg/dL (40-59) L 01/12/22 02:03 Cholesterol/HDL Ratio 9.42 % 01/12/22 02:03 Procalcitonin > 200.00 ng/mL (<0.15) 01/11/22 07:58 Urine Color Yellow (Yellow) 01/09/22 13:52 Urine Turbidity Hazy (Clear) 01/09/22 13:52 Urine pH 6.0 (5.0-7.0) 01/09/22 13:52 Ur Specific [place] 1.020 (1.003-1.030) 01/09/22 13:52 Urine Protein 100 mg/dl mg/dL (Negative) 01/09/22 13:52 Urine Glucose (UA) Neg mg/dL (Negative) 01/09/22 13:52 Urine Ketones Neg mg/dL (Negative) 01/09/22 13:52 Urine Blood Neg (Negative) 01/09/22 13:52 Urine Nitrite Neg (Negative) 01/09/22 13:52 Urine Bilirubin Neg (Negative) 01/09/22 13:52 Urine Urobilinogen < 2.0 mg/dL (<2.0) 01/09/22 13:52 Ur Leukocyte Esterase Neg (Negative) 01/09/22 13:52 Urine WBC (Auto) 4.0 /HPF (0.0-6.0) 01/09/22 13:52 Urine RBC (Auto) 3.0 /HPF (0.0-6.0) 01/09/22 13:52 U Epithel Cells (Auto) 2.0 /HPF (0-13.0) 01/09/22 13:52 Urine Bacteria (Auto) 1+ /HPF (Negative) 01/09/22 13:52 Urine Mucus Few /HPF 01/09/22 13:52 Urine Total Volume 520 ml 01/23/22 Unknown Urine Creatinine 19.6 mg/dL (0.1-20.0) 01/23/22 Unknown Ur Creatinine 24 Hour 0.1 (0.8-2.8) L 01/23/22 Unknown Random Vancomycin 4.0 ug/mL (0-40.0) 01/28/22 07:22 C. difficile Tox (PCR) Negative (Negative) 01/16/22 10:30 Coronavirus (PCR) Negative (Negative) 01/25/22 08:00 Hepatitis A IgM Ab Non-reactive (NonReactive) 01/14/22 Unknown Hep Bs Antigen Non-reactive (Negative) 01/14/22 Unknown Hep B Core IgM Ab Non-reactive (NonReactive) 01/14/22 Unknown Hepatitis C Antibody Non-reactive (NonReactive) 01/14/22 Unknown Blood Type B POSITIVE 01/27/22 06:54 Antibody Screen Negative 01/27/22 06:54 Crossmatch See Detail 01/27/22 06:54 Microbiology: Microbiology 01/25/22 16:23 Peripheral/Venous Blood Culture - Preliminary NO GROWTH AFTER 48 HOURS 01/25/22 16:23 Peripheral/Venous Blood Culture - Preliminary NO GROWTH AFTER 48 HOURS 01/25/22 18:00 Central Venous Line Catheter Tip Culture - Preliminary Coag Negative Staphylococcus Samuel/IV: Voiding Method External Female Catheter Active Medications - Current Medications Current Medications: Generic Name Dose Route Start Last Admin Trade Name Freq PRN Reason Stop Dose Admin Acetaminophen 650 mg 01/09/22 15:00 01/27/22 21:48 Acetaminophen 325 Mg Tab PO 650 mg Q4H PRN Administration Pain MILD(1-3)/Fever >100.5/RILEY Albuterol 2.5 mg 01/09/22 14:25 Albuterol 2.5 Mg/3 Ml Nebu IH Q4HRT PRN Shortness Of Breath Amlodipine Besylate 10 mg 01/19/22 12:00 01/27/22 11:17 Amlodipine 10 Mg Tab PO 10 mg QDAY JARROD Administration Lipase/Protease/Amylase 1 each 01/18/22 07:11 Lipase 10,500/Protease 25,000/Amylase 43,750 (Units) Dr Gant FEEDTUBE PRN PRN For Clogged Feeding Tube Ascorbic Acid 500 mg 01/09/22 22:00 01/27/22 21:49 Ascorbic Acid 500 Mg Tab PO 500 mg BID JARROD Administration Carvedilol 3.125 mg 01/12/22 12:00 01/27/22 21:49 Carvedilol 3.125 Mg Tab PO 3.125 mg BID JARROD Administration Cholecalciferol 1,000 unit 01/10/22 10:00 01/27/22 11:21 Cholecalciferol (Vit D3) 1000 Unit (25 Mcg) Tab PO 1,000 unit DAILY JARROD Administration Dextrose 0 ml 01/09/22 14:48 Dextrose 10% *Hypoglycemia IV PRN PRN Hypoglycemia Heparin Sodium (Porcine) 5,000 unit 01/09/22 22:00 01/27/22 21:50 Heparin 5,000 Unit/1 Ml Vial SUB-Q 5,000 unit Q12HR JARROD Administration Hydralazine HCl 10 mg 01/12/22 11:21 Hydralazine 20 Mg/1 Ml Inj IV Q4HR PRN Hypertension Hydromorphone HCl 0.25 mg 01/09/22 15:00 01/28/22 04:29 Hydromorphone 1 Mg/1 Ml Inj IV 0.25 mg Q4H PRN Administration Pain, Moderate (4-6) Hydromorphone HCl 0.5 mg 01/09/22 15:00 Hydromorphone 1 Mg/1 Ml Inj IV Q23H PRN Pain , Severe (7-10) Sodium Chloride 100 mls @ 999 mls/hr 01/15/22 09:08 Nacl 0.9% IV MYRNA PRN Hypotension Ceftriaxone Sodium 1 gm in 50 mls @ 100 mls/hr 01/25/22 18:00 01/27/22 23:57 Rocephin/Ns 1 Gm/50 Ml IV Infused Q24H [facility] Infusion Protocol Insulin Human Regular 0 units 01/15/22 18:00 01/28/22 06:45 Insulin Regular, Human 100 Units/1 Ml SUB-Q Not Given Q6H [facility] Protocol Losartan Potassium 50 mg 01/18/22 10:00 01/27/22 11:18 Losartan 50 Mg Tab PO 50 mg QDAY JARROD Administration Ondansetron HCl 4 mg 01/09/22 16:00 Ondansetron 4 Mg/2 Ml Inj IV Q8H PRN Nausea And Vomiting Oxycodone/Acetaminophen 1 tab 01/09/22 15:00 01/22/22 13:17 Oxycodone /Acetaminophen 5-325mg Tab PO 1 tab Q16H PRN Administration Pain, Moderate (4-6) Simple Syrup 15 ml 01/18/22 07:11 Simple Syrup 15 Ml FEEDTUBE PRN PRN Hypoglycemia Simple Syrup 30 ml 01/18/22 07:11 Simple Syrup 15 Ml FEEDTUBE PRN PRN Hypoglycemia Sodium Bicarbonate 325 mg 01/18/22 07:11 Sodium Bicarbonate 325 Mg Tab FEEDTUBE PRN PRN For Clogged Feeding Tube Sodium Chloride 10 ml 01/09/22 22:00 01/27/22 21:50 Sodium Chloride 0.9% 10 Ml Flush Syringe IV 10 ml BID JARROD Administration Sodium Chloride 10 ml 01/09/22 15:00 01/15/22 21:08 Sodium Chloride 0.9% 10 Ml Flush Syringe IV 10 ml PRN PRN Administration LINE FLUSH Zinc Sulfate 220 mg 01/09/22 22:00 01/27/22 21:48 Zinc Sulfate 220 Mg Cap PO 220 mg BID JARROD Administration Nutrition/Malnutrition Assess - Dietary Evaluation Nutrition/Malnutrition Findings: Nutrition Notes Start: 01/10/22 13:52 Freq: Status: Active Protocol: Document 01/25/22 19:52 FLOR (Rec: 01/25/22 20:03 FLOR [id number]) Nutrition Notes Initial or Follow up Reassessment Current Diagnosis Acute Kidney Injury,Decubitus( Pressure Ulcer),Sepsis, Malnutrition Other Pertinent Diagnosis COVID-19/Pneumonia, Metabolic Acidosis, KELSIE/ATN, Dysphagia, Dementia... Current Diet TF-Nepro w/CARBSTEADY @ 30 ml/ hr (since L 01/18). Labs/Tests 01/24: Na 130, Cl 96.4, BUN 53 , Crea 2.3, Glu 130, Ca 7.5. Pertinent Medications 01/25: Vit C, Vit D3, ZnSO4, others nutritionally unremarkable. Height 5 ft 4 in Weight 48 kg House Body Weight (kg) 54.54 BMI 18.1 Weight change and time frame No body weight change reported in 16 days. Weight Status Underweight Subjective/Other Information RD consult for write/manage TF . TF continues as prescribed. Pt medically cleared for Discharge, but waiting for placement at SNF or Hospice.. Percent of energy/protein needs met: Prescribed TF-Nepro w/ CARBSTEADY @ 30 ml/hr provides for energy/protein needs (1, 296 Kcal/58 g) during LOS, 77% Kcal; 100% AA. Burn Absent Trauma Absent GI Symptoms None Difficulty In Swallowing Food Allergy No Skin Integrity/Comment Sacral Decubitus Current % PO Other Minimum of two criteria Yes #1 Nutrition Diagnosis Underweight Diagnosis Progress(for reassessment Continues documentation) Is patient on ventilator? No Is Patient Ambulatory and/or Out of Bed No REE-([facility]-confined to bed) 1223.568 Kcal/Kg value to use for calculation 35 Approximate Energy Requirements Using 1680 kcal/Kg Calculation Used for Recommendations Kcal/kg Additional Notes Protein: 1.2-1.5 g/Kg; 58-72 g /day. Fluids: 1 ml/Kcal, or as per MD. Nutrition Intervention Nutrition Support: Continue TF-Nepro w/CARBSTEADY @ 30 ml/hr. Flush: 130 ml water Q 4 hr, or as per MD. Kcal 1,296 Protein (gm) 58 Carbohydrates (gm) 116 Fat (gm) 69 Fluid (mL) 523 Fiber (gm) 9 % RDI: 77% Kcal; 100% AA. Goal #1 Provide at least 75% of energy /protein needs through Enteral Feeding during LOS. Goal #2 Maintain body weight within +/ -3% of admission body weight during LOS. Follow-Up By: 02/01/22 Additional Comments Continue monitoring TF tolerance and BM.
[2022-01-28] MEDS: HEPARIN 5,000 UNIT/1 ML VIAL SUB-Q SCH ×2 (09:23→22:40)
[2022-01-28] MEDS: ZINC SULFATE 220 MG CAP PO SCH ×2 (09:24→22:39)
[2022-01-28] MEDS: CHOLECALCIFEROL (VIT D3) 1000 UNIT (25 mcg) TAB PO SCH (09:24)
[2022-01-28] MEDS: carvediloL 3.125 MG TAB PO SCH ×2 (09:25→22:38)
[2022-01-28] MEDS: amLODIPine 10 MG TAB PO SCH (09:26)
[2022-01-28] MEDS: LOSARTAN 50 MG TAB PO SCH (09:26)
[2022-01-28] MEDS: ASCORBIC ACID 500 MG TAB PO SCH ×2 (09:27→22:38)
[2022-01-28] MEDS ORDERED: VANCOMYCIN/NS 1 GM/250 ML 1 GM/250 ML BAG IV ONE (10:00)
--- NOTE | 2022-01-28 10:52 | Progress Note ---
Subjective Principal diagnosis: sandy Interval history: Patient was seen today for follow-up of multiple renal related issues Has urinary incontinence Interdisciplinary notes that also reviewed Events of 24 hours vitals labs intake output medications were reviewed Past medical history: Reviewed Family history: Reviewed Social history: Reviewed Allergies: Reviewed Physical examination: Vitals: Reviewed HEENT: No pallor or icterus oral mucosa moist Neck: Supple no JVD no thyromegaly Chest: Bilateral clear to auscultation anteriorly Heart: Regular rate and rhythm S1-S2 heard no S3-S4 Abdomen: Soft nontender no voluntary guarding rigidity rebound Extremity: Dry skin less than 1+ peripheral edema Psychiatric: No evidence of agitation and aggression noted Dermatology: No petechial rashes Labs and x-rays: Reviewed from today Assessment and plan Acute kidney injury resulting from Covid related renal failure, patient was initiated on renal replacement therapy, last dialysis was on January 26, continue to monitor electrolytes as well as BUN/creatinine closely, Current creatinine is around 2.0 without any hyperkalemia or acidosis, would monitor closely Renal ultrasonogram obtained December 2021 shows bilateral echogenic kidneys possible left renal stone Has had permacath placed, May consider removal in a day or 2 if her renal function remained stable and urine output is satisfactory Patient is currently not felt to be end-stage kidney disease, #Hyponatremia: To monitor and follow #Anemia with renal failure, multifactorial support with erythropoietin and as needed iron Hemoglobin is currently 8.4 mild leukopenia, #COVID-19 infection We'll continue to follow and make recommendation for renal standpoint Objective - Vital Signs Vital signs: Vital Signs - 12hr 01/28/22 01/28/22 01/28/22 04:40 04:42 09:18 Temperature 99.1 F 98.0 F Pulse Rate 85 88 79 Respiratory 20 16 Rate Blood Pressure 122/56 Blood Pressure 122/56 116/55 [Left] O2 Sat by Pulse 95 96 97 Oximetry 01/28/22 01/28/22 09:25 09:26 Temperature Pulse Rate 79 79 Respiratory Rate Blood Pressure Blood Pressure [Left] O2 Sat by Pulse Oximetry - Lab 01/28/22 07:22 01/29/22 04:09 Most recent lab results Calcium 7.9 mg/dL (8.4-10.2) L 01/28/22 07:22 Phosphorus 4.90 mg/dL (2.5-4.5) H 01/16/22 06:50 Magnesium 1.60 mg/dL (1.7-2.3) L 01/16/22 06:50 Urine Creatinine 19.6 mg/dL (0.1-20.0) 01/23/22 Unknown Medications & Allergies - Medications Allergies/Adverse Reactions: Allergies No Known Allergies Allergy (Verified 01/09/22 11:43) Home Medications: Home Medications Medication Instructions Recorded Confirmed Last Taken Type amLODIPine 10 mg PO QDAY #30 tablet 03/09/21 01/09/22 Unknown Rx carvediloL [Coreg] 3.125 mg PO BID #60 tablet 03/09/21 01/09/22 Unknown Rx Cholecalciferol Vit D3 [Vitamin D3 1,000 unit PO DAILY #30 tablet 01/16/22 Unknown Rx 1,000 UNIT TAB] Losartan [Cozaar] 50 mg PO QDAY #30 tablet 01/18/22 Unknown Rx NIFEdipine XL [Procardia Xl] 30 mg PO QDAY #30 tablet 01/18/22 Unknown Rx Active Medications: Generic Name Dose Route Start Last Admin Trade Name Freq PRN Reason Stop Dose Admin Acetaminophen 650 mg 01/09/22 15:00 01/27/22 21:48 Acetaminophen 325 Mg Tab PO 650 mg Q4H PRN Administration Pain MILD(1-3)/Fever >100.5/RILEY Albuterol 2.5 mg 01/09/22 14:25 Albuterol 2.5 Mg/3 Ml Nebu IH Q4HRT PRN Shortness Of Breath Amlodipine Besylate 10 mg 01/19/22 12:00 01/28/22 09:26 Amlodipine 10 Mg Tab PO 10 mg QDAY JARROD Administration Lipase/Protease/Amylase 1 each 01/18/22 07:11 Lipase 10,500/Protease 25,000/Amylase 43,750 (Units) Dr Stalin CRUZ PRN PRN For Clogged Feeding Tube Ascorbic Acid 500 mg 01/09/22 22:00 01/28/22 09:27 Ascorbic Acid 500 Mg Tab PO 500 mg BID JARROD Administration Carvedilol 3.125 mg 01/12/22 12:00 01/28/22 09:25 Carvedilol 3.125 Mg Tab PO 3.125 mg BID JARROD Administration Cholecalciferol 1,000 unit 01/10/22 10:00 01/28/22 09:24 Cholecalciferol (Vit D3) 1000 Unit (25 Mcg) Tab PO 1,000 unit DAILY JARROD Administration Dextrose 0 ml 01/09/22 14:48 Dextrose 10% *Hypoglycemia IV PRN PRN Hypoglycemia Heparin Sodium (Porcine) 5,000 unit 01/09/22 22:00 01/28/22 09:23 Heparin 5,000 Unit/1 Ml Vial SUB-Q 5,000 unit Q12HR JARROD Administration Hydralazine HCl 10 mg 01/12/22 11:21 Hydralazine 20 Mg/1 Ml Inj IV Q4HR PRN Hypertension Hydromorphone HCl 0.25 mg 01/09/22 15:00 01/28/22 04:29 Hydromorphone 1 Mg/1 Ml Inj IV 0.25 mg Q4H PRN Administration Pain, Moderate (4-6) Hydromorphone HCl 0.5 mg 01/09/22 15:00 Hydromorphone 1 Mg/1 Ml Inj IV Q23H PRN Pain , Severe (7-10) Sodium Chloride 100 mls @ 999 mls/hr 01/15/22 09:08 Nacl 0.9% IV MYRNA PRN Hypotension Ceftriaxone Sodium 1 gm in 50 mls @ 100 mls/hr 01/25/22 18:00 01/27/22 23:57 Rocephin/Ns 1 Gm/50 Ml IV Infused Q24H [facility] Infusion Protocol Vancomycin HCl 1 gm in 250 mls @ 167.007 mls/hr 01/28/22 10:00 Vancomycin/Ns 1 Gm/250 Ml IV 01/28/22 11:29 ONCE ONE Insulin Human Regular 0 units 01/15/22 18:00 01/28/22 06:45 Insulin Regular, Human 100 Units/1 Ml SUB-Q Not Given Q6H [facility] Protocol Losartan Potassium 50 mg 01/18/22 10:00 01/28/22 09:26 Losartan 50 Mg Tab PO Not Given QDAY [facility] Ondansetron HCl 4 mg 01/09/22 16:00 Ondansetron 4 Mg/2 Ml Inj IV Q8H PRN Nausea And Vomiting Oxycodone/Acetaminophen 1 tab 01/09/22 15:00 01/22/22 13:17 Oxycodone /Acetaminophen 5-325mg Tab PO 1 tab Q16H PRN Administration Pain, Moderate (4-6) Simple Syrup 15 ml 01/18/22 07:11 Simple Syrup 15 Ml FEEDTUBE PRN PRN Hypoglycemia Simple Syrup 30 ml 01/18/22 07:11 Simple Syrup 15 Ml FEEDTUBE PRN PRN Hypoglycemia Sodium Bicarbonate 325 mg 01/18/22 07:11 Sodium Bicarbonate 325 Mg Tab FEEDTUBE PRN PRN For Clogged Feeding Tube Sodium Chloride 10 ml 01/09/22 22:00 01/28/22 09:27 Sodium Chloride 0.9% 10 Ml Flush Syringe IV 10 ml BID JARROD Administration Sodium Chloride 10 ml 01/09/22 15:00 01/15/22 21:08 Sodium Chloride 0.9% 10 Ml Flush Syringe IV 10 ml PRN PRN Administration LINE FLUSH Zinc Sulfate 220 mg 01/09/22 22:00 01/28/22 09:24 Zinc Sulfate 220 Mg Cap PO 220 mg BID JARROD Administration
[2022-01-29] MEDS: INSULIN REGULAR, HUMAN 100 UNITS/1 ML SUB-Q SCH ×4 (00:01→18:22)
[2022-01-29 05:25] LABS: Calcium 8.3 mg/dL (8.4-10.2)
--- NOTE | 2022-01-29 08:23 | Progress Note ---
Subjective Principal diagnosis: sandy Interval history: Patient was seen today for follow-up of multiple renal related issues Has urinary incontinence/ Patient was seen today for follow-up of multiple renal related issues, admitted with shortness of breath, events of this hospitalization were noted No complaints of any chest pain pressure or shortness of breath Interdisciplinary notes that also reviewed Events of 24 hours vitals labs intake output medications were reviewed Past medical history: Reviewed Family history: Reviewed Social history: Reviewed Allergies: Reviewed Physical examination: Vitals: Reviewed HEENT: No pallor or icterus oral mucosa moist Neck: Supple no JVD no thyromegaly Chest: Bilateral clear to auscultation anteriorly Heart: Regular rate and rhythm S1-S2 heard no S3-S4 Abdomen: Soft nontender no voluntary guarding rigidity rebound Extremity: Dry skin less than 1+ peripheral edema Psychiatric: No evidence of agitation and aggression noted Dermatology: No petechial rashes Labs and x-rays: Reviewed from today Assessment and plan Acute kidney injury resulting from Covid related renal failure, patient was initiated on renal replacement therapy, last dialysis was on January 26, continue to monitor electrolytes as well as BUN/creatinine closely, Renal function appears to be stable patient has been noted to be incontinent I have advised the nurse to monitor and wait her diapers every day and document appropriately Anemia with leukopenia we will start the patient on erythropoietin, 10,000 unit weekly, this is also partly nutritional as well, Renal prognosis remains guarded if her creatinine remains stable tomorrow may consider taking out the permacath For now we will continue to hold hemodialysis Renal ultrasonogram shows evidence of bilateral echogenic kidneys Medication management: We will stop losartan, monitor vancomycin level closely, Increase carvedilol and if needed amlodipine can be increased as well #Hyponatremia: To monitor and follow #Anemia with renal failure, multifactorial support with erythropoietin and as needed iron Hemoglobin is currently 8.4 mild leukopenia, #COVID-19 infection We'll continue to follow and make recommendation for renal standpoint Objective - Vital Signs Vital signs: Vital Signs - 12hr 01/28/22 01/28/22 22:00 22:38 Pulse Rate 98 H Blood Pressure 157/84 O2 Sat by Pulse 98 Oximetry - Lab 01/28/22 07:22 01/29/22 04:09 Most recent lab results Calcium 8.3 mg/dL (8.4-10.2) L 01/29/22 04:09 Phosphorus 4.90 mg/dL (2.5-4.5) H 01/16/22 06:50 Magnesium 1.60 mg/dL (1.7-2.3) L 01/16/22 06:50 Urine Creatinine 19.6 mg/dL (0.1-20.0) 01/23/22 Unknown Medications & Allergies - Medications Allergies/Adverse Reactions: Allergies No Known Allergies Allergy (Verified 01/09/22 11:43) Home Medications: Home Medications Medication Instructions Recorded Confirmed Last Taken Type amLODIPine 10 mg PO QDAY #30 tablet 03/09/21 01/09/22 Unknown Rx carvediloL [Coreg] 3.125 mg PO BID #60 tablet 03/09/21 01/09/22 Unknown Rx Cholecalciferol Vit D3 [Vitamin D3 1,000 unit PO DAILY #30 tablet 01/16/22 Unknown Rx 1,000 UNIT TAB] Losartan [Cozaar] 50 mg PO QDAY #30 tablet 01/18/22 Unknown Rx NIFEdipine XL [Procardia Xl] 30 mg PO QDAY #30 tablet 01/18/22 Unknown Rx Active Medications: Generic Name Dose Route Start Last Admin Trade Name Freq PRN Reason Stop Dose Admin Acetaminophen 650 mg 01/09/22 15:00 01/27/22 21:48 Acetaminophen 325 Mg Tab PO 650 mg Q4H PRN Administration Pain MILD(1-3)/Fever >100.5/RILEY Albuterol 2.5 mg 01/09/22 14:25 Albuterol 2.5 Mg/3 Ml Nebu IH Q4HRT PRN Shortness Of Breath Amlodipine Besylate 10 mg 01/19/22 12:00 01/28/22 09:26 Amlodipine 10 Mg Tab PO 10 mg QDAY JARROD Administration Lipase/Protease/Amylase 1 each 01/18/22 07:11 Lipase 10,500/Protease 25,000/Amylase 43,750 (Units) Dr Stalin SIERRATUBE PRN PRN For Clogged Feeding Tube Ascorbic Acid 500 mg 01/09/22 22:00 01/28/22 22:38 Ascorbic Acid 500 Mg Tab PO 500 mg BID JARROD Administration Carvedilol 3.125 mg 01/12/22 12:00 01/28/22 22:38 Carvedilol 3.125 Mg Tab PO 3.125 mg BID JARROD Administration Cholecalciferol 1,000 unit 01/10/22 10:00 01/28/22 09:24 Cholecalciferol (Vit D3) 1000 Unit (25 Mcg) Tab PO 1,000 unit DAILY [facility] Administration Dextrose 0 ml 01/09/22 14:48 Dextrose 10% *Hypoglycemia IV PRN PRN Hypoglycemia Heparin Sodium (Porcine) 5,000 unit 01/09/22 22:00 01/28/22 22:40 Heparin 5,000 Unit/1 Ml Vial SUB-Q 5,000 unit Q12HR JARROD Administration Hydralazine HCl 10 mg 01/12/22 11:21 Hydralazine 20 Mg/1 Ml Inj IV Q4HR PRN Hypertension Hydromorphone HCl 0.25 mg 01/09/22 15:00 01/28/22 04:29 Hydromorphone 1 Mg/1 Ml Inj IV 0.25 mg Q4H PRN Administration Pain, Moderate (4-6) Hydromorphone HCl 0.5 mg 01/09/22 15:00 Hydromorphone 1 Mg/1 Ml Inj IV Q23H PRN Pain , Severe (7-10) Sodium Chloride 100 mls @ 999 mls/hr 01/15/22 09:08 Nacl 0.9% IV MYRNA PRN Hypotension Insulin Human Regular 0 units 01/15/22 18:00 01/29/22 06:30 Insulin Regular, Human 100 Units/1 Ml SUB-Q Not Given Q6H [facility] Protocol Losartan Potassium 50 mg 01/18/22 10:00 01/28/22 09:26 Losartan 50 Mg Tab PO Not Given QDAY [facility] Ondansetron HCl 4 mg 01/09/22 16:00 Ondansetron 4 Mg/2 Ml Inj IV Q8H PRN Nausea And Vomiting Oxycodone/Acetaminophen 1 tab 01/09/22 15:00 01/22/22 13:17 Oxycodone /Acetaminophen 5-325mg Tab PO 1 tab Q16H PRN Administration Pain, Moderate (4-6) Simple Syrup 15 ml 01/18/22 07:11 Simple Syrup 15 Ml FEEDTUBE PRN PRN Hypoglycemia Simple Syrup 30 ml 01/18/22 07:11 Simple Syrup 15 Ml FEEDTUBE PRN PRN Hypoglycemia Sodium Bicarbonate 325 mg 01/18/22 07:11 Sodium Bicarbonate 325 Mg Tab FEEDTUBE PRN PRN For Clogged Feeding Tube Sodium Chloride 10 ml 01/09/22 22:00 01/28/22 22:40 Sodium Chloride 0.9% 10 Ml Flush Syringe IV 10 ml BID JARROD Administration Sodium Chloride 10 ml 01/09/22 15:00 01/15/22 21:08 Sodium Chloride 0.9% 10 Ml Flush Syringe IV 10 ml PRN PRN Administration LINE FLUSH Zinc Sulfate 220 mg 01/09/22 22:00 01/28/22 22:39 Zinc Sulfate 220 Mg Cap PO 220 mg BID JARROD Administration
[2022-01-29] MEDS ORDERED: carvediloL 3.125 MG TAB PO SCH (08:37)
[2022-01-29] MEDS: CHOLECALCIFEROL (VIT D3) 1000 UNIT (25 mcg) TAB PO SCH (09:48)
[2022-01-29] MEDS: carvediloL 6.25 MG TAB PO SCH ×2 (09:48→22:04)
[2022-01-29] MEDS: ASCORBIC ACID 500 MG TAB PO SCH ×2 (09:48→22:04)
[2022-01-29] MEDS: ZINC SULFATE 220 MG CAP PO SCH ×2 (09:48→22:04)
[2022-01-29] MEDS: amLODIPine 10 MG TAB PO SCH (09:48)
[2022-01-29] MEDS ORDERED: EPOETIN ALFA-EPBX 10,000 UNIT/1 ML VIAL SUB-Q SCH (10:00)
[2022-01-29] MEDS: HEPARIN 5,000 UNIT/1 ML VIAL SUB-Q SCH ×2 (10:06→22:04)
--- NOTE | 2022-01-29 11:28 | Progress Note ---
Assessment and Plan Assessment and plan: #Sepsis #COVID-19 infection #Pneumonia -patient defervesing since abx restarted -repeat blood culture NGTD x 48hrs -culture tip collected on 01/25 growing staph epi; may be skin contaminant -ID re-consulted for further recommendations -s/p doxycycline/rocephin; holding on antibiotics at this time. Pending ID recs. -s/p steroids; vitamins for COVID infection did not receive remdesivir due to kidney function #Normocytic anemia -Hgb stable at 8.4 -will transfuse for Hgb less than 7 #Hyponatremiaresolved -likely secondary to prolonged free water administration -will continue to monitor #Acute respiratory failure with hypoxia-resolved -currently weaned to RA -continuous pulse ox -likely secondary to COVID PNA vs bacterial PNA #Acute metabolic encephalopathy-resolved #hx of Vascular dementia #Cerebral atherosclerosis -multifactorial; acute change likely secondary to infection -will continue to monitor #Acute kidney injury vs progressing CKD -Renal US showed medical renal disease -avoid nephrotoxins and will renally dose medications -Nephrology following, assistance appreciated -Initiated hemodialysis on 01/15/2022. Status post triple-lumen HD catheter replacement with permacath by vascular surgery. -HD chair declined due to diagnosis of acute kidney injury, will monitor for signs of recovery #Metabolic acidosis -secondary to renal failure #Dysphagia -Currently with PEG tube -continue tube feeds -Nutrition consulted; appreciate recs #Severe protein-calorie malnutrition -albumin 2.0 -continue TF, Nutrition managing #Sacral decubitus ulcer -Continue wound care #Discharge planning -Patient family decided with hospice, awaiting approval. Patient will be discharged to [place] with [facility] agency following. Disposition Plan: Pending placement Total Time Spent with Patient (Minutes): 30 minutes History Interval history: No acute events overnight. Hospitalist Physical - Constitutional Vitals: Temp Pulse Resp BP Pulse Ox 97.8 F 92 H 16 142/72 96 01/29/22 05:34 01/29/22 09:50 01/29/22 05:34 01/29/22 05:34 01/29/22 09:50 General appearance: Present: no acute distress, cachectic - EENT Eyes: Present: PERRL, EOM intact ENT: hearing intact - Neck Neck: Present: supple - Respiratory Respiratory effort: normal Respiratory: bilateral: CTA - Cardiovascular Rhythm: regular Heart Sounds: Present: S1 & S2 - Extremities Extremities: no ischemia, pulses intact, pulses symmetrical, normal temperature, normal color Peripheral Pulses: within normal limits - Abdominal General gastrointestinal: soft, non-tender, non-distended, normal bowel sounds, other (PEG tube in place) - Integumentary Integumentary: Present: clear, warm - Psychiatric Psychiatric: cooperative - Neurologic Neurologic: CNII-XII intact - Allied Health Allied health notes reviewed: nursing HEART Score - HEART Score Troponin: Troponin T 0.064 ng/mL (0.00-0.029) H 01/12/22 02:03 Results - Labs CBC & Chem 7: 01/28/22 07:22 01/29/22 04:09 Labs: Laboratory Last Values WBC 4.0 K/mm3 (4.5-11.0) L 01/28/22 07:22 RBC 2.86 M/mm3 (3.65-5.03) L 01/28/22 07:22 Hgb 8.4 gm/dl (10.1-14.3) L 01/28/22 07:22 Hct 24.5 % (30.3-42.9) L 01/28/22 07:22 MCV 86 fl (79-97) 01/28/22 07: MCH 29 pg (28-32) 01/28/22 07: MCHC 34 % (30-34) 01/28/22 07:22 RDW 15.0 % (13.2-15.2) 01/28/22 07:22 Plt Count 230 K/mm3 (140-440) 01/28/22 07:22 Lymph % (Auto) 13.4 % (13.4-35.0) 01/28/22 07:22 Alfalfa % (Auto) 5.0 % (0.0-7.3) 01/28/22 07: Eos % (Auto) 2.0 % (0.0-4.3) 01/28/22 07: Baso % (Auto) 0.3 % (0.0-1.8) 01/28/22 07:22 Lymph # (Auto) 0.5 K/mm3 (1.2-5.4) L 01/28/22 07:22 Alfalfa # (Auto) 0.2 K/mm3 (0.0-0.8) 01/28/22 07:22 Eos # (Auto) 0.1 K/mm3 (0.0-0.4) 01/28/22 07:22 Baso # (Auto) 0.0 K/mm3 (0.0-0.1) 01/28/22 07:22 Add Manual Diff Complete 01/24/22 05:30 Total Counted 100 01/24/22 05:30 Seg Neutrophils % 79.3 % (40.0-70.0) H 01/28/22 07:22 Seg Neuts % (Manual) 97.0 % (40.0-70.0) H 01/24/22 05:30 Band Neutrophils % 0 % 01/24/22 05:30 Lymphocytes % (Manual) 1.0 % (13.4-35.0) L 01/24/22 05:30 Reactive Lymphs % (Man) 0 % 01/24/22 05:30 Monocytes % (Manual) 2.0 % (0.0-7.3) 01/24/22 05:30 Eosinophils % (Manual) 0 % (0.0-4.3) 01/24/22 05:30 Basophils % (Manual) 0 % (0.0-1.8) 01/24/22 05:30 Metamyelocytes % 0 % 01/24/22 05:30 Myelocytes % 0 % 01/24/22 05:30 Promyelocytes % 0 % 01/24/22 05:30 Blast Cells % 0 % 01/24/22 05:30 Nucleated RBC % Not Reportable 01/24/22 05:30 Seg Neutrophils # 3.2 K/mm3 (1.8-7.7) 01/28/22 07:22 Seg Neutrophils # Man 9.4 K/mm3 (1.8-7.7) H 01/24/22 05:30 Band Neutrophils # 0.0 K/mm3 01/24/22 05:30 Lymphocytes # (Manual) 0.1 K/mm3 (1.2-5.4) L 01/24/22 05:30 Abs React Lymphs (Man) 0.0 K/mm3 01/24/22 05:30 Monocytes # (Manual) 0.2 K/mm3 (0.0-0.8) 01/24/22 05:30 Eosinophils # (Manual) 0.0 K/mm3 (0.0-0.4) 01/24/22 05:30 Basophils # (Manual) 0.0 K/mm3 (0.0-0.1) 01/24/22 05:30 Metamyelocytes # 0.0 K/mm3 01/24/22 05:30 Myelocytes # 0.0 K/mm3 01/24/22 05:30 Promyelocytes # 0.0 K/mm3 01/24/22 05:30 Blast Cells # 0.0 K/mm3 01/24/22 05:30 WBC Morphology Not Reportable 01/24/22 05:30 Hypersegmented Neuts Not Reportable 01/24/22 05:30 Hyposegmented Neuts Not Reportable 01/24/22 05:30 Hypogranular Neuts Not Reportable 01/24/22 05:30 Smudge Cells Not Reportable 01/24/22 05:30 Toxic Granulation 3+ 01/24/22 05:30 Toxic Vacuolation 1+ 01/24/22 05:30 Dohle Bodies Not Reportable 01/24/22 05:30 Pelger-Huet Anomaly Not Reportable 01/24/22 05:30 Lesley Rods Not Reportable 01/24/22 05:30 Platelet Estimate Consistent w auto 01/24/22 05:30 Clumped Platelets Rare 01/24/22 05:30 Plt Clumps, EDTA Not Reportable 01/24/22 05:30 Large Platelets Not Reportable 01/24/22 05:30 Giant Platelets Not Reportable 01/24/22 05:30 Platelet Satelliting Not Reportable 01/24/22 05:30 Plt Morphology Comment Not Reportable 01/24/22 05:30 RBC Morphology Not Reportable 01/24/22 05:30 Dimorphic RBCs Not Reportable 01/24/22 05:30 Polychromasia Not Reportable 01/24/22 05:30 Hypochromasia 1+ 01/24/22 05:30 Poikilocytosis Not Reportable 01/24/22 05:30 Anisocytosis 1+ 01/24/22 05:30 Microcytosis Not Reportable 01/24/22 05:30 Macrocytosis Not Reportable 01/24/22 05:30 Spherocytes Not Reportable 01/24/22 05:30 Pappenheimer Bodies Not Reportable 01/24/22 05:30 Sickle Cells Not Reportable 01/24/22 05:30 Target Cells Not Reportable 01/24/22 05:30 Tear Drop Cells Not Reportable 01/24/22 05:30 Ovalocytes Not Reportable 01/24/22 05:30 Helmet Cells Not Reportable 01/24/22 05:30 Hammonds-Sattley Bodies Not Reportable 01/24/22 05:30 [place] Rings Not Reportable 01/24/22 05:30 [place] Cells Not Reportable 01/24/22 05:30 Bite Cells Not Reportable 01/24/22 05:30 Crenated Cell Not Reportable 01/24/22 05:30 Elliptocytes Not Reportable 01/24/22 05:30 Acanthocytes (Spur) Not Reportable 01/24/22 05:30 Rouleaux Not Reportable 01/24/22 05:30 Hemoglobin C Crystals Not Reportable 01/24/22 05:30 Schistocytes Not Reportable 01/24/22 05:30 Malaria parasites Not Reportable 01/24/22 05:30 Artemio Bodies Not Reportable 01/24/22 05:30 Hem Pathologist Commnt No 01/24/22 05:30 APTT 29.2 Sec. (24.2-36.6) 01/09/22 12:50 D-Dimer 4886.79 ng/mlDDU (0-234) H 01/11/22 07:58 Sodium 137 mmol/L (137-145) 01/29/22 04:09 Potassium 4.0 mmol/L (3.6-5.0) 01/29/22 04:09 Chloride 98.4 mmol/L (98-107) 01/29/22 04:09 Carbon Dioxide 28 mmol/L (22-30) 01/29/22 04:09 Anion Gap 15 mmol/L 01/29/22 04:09 BUN 46 mg/dL (7-17) H 01/29/22 04:09 Creatinine 2.2 mg/dL (0.6-1.2) H 01/29/22 04:09 Estimated GFR 27 ml/min 01/29/22 04:09 BUN/Creatinine Ratio 21 % 01/29/22 04:09 Glucose 111 mg/dL (65-100) H 01/29/22 04:09 POC Glucose 106 mg/dL (70-105) H 01/29/22 06:59 Lactic Acid 1.40 mmol/L (0.7-2.0) 01/09/22 12:50 Calcium 8.3 mg/dL (8.4-10.2) L 01/29/22 04:09 Phosphorus 4.90 mg/dL (2.5-4.5) H 01/16/22 06:50 Magnesium 1.60 mg/dL (1.7-2.3) L 01/16/22 06:50 Ferritin 2182.0 ng/mL (10.0-200.0) H 01/11/22 07:58 Total Bilirubin 0.20 mg/dL (0.1-1.2) 01/09/22 12:50 Direct Bilirubin < 0.2 mg/dL (0-0.2) 01/09/22 12:50 Indirect Bilirubin 0.0 mg/dL 01/09/22 12:50 AST 75 units/L (5-40) H 01/09/22 12:50 ALT 31 units/L (7-56) 01/09/22 12:50 Alkaline Phosphatase 69 units/L (35-129) 01/09/22 12:50 Lactate Dehydrogenase 332 units/L (91-180) H 01/11/22 07:58 Troponin T 0.064 ng/mL (0.00-0.029) H 01/12/22 02:03 C-Reactive Protein 30.40 mg/dL (0.00-1.30) H 01/11/22 07:58 NT-Pro-B Natriuret Pep 608.7 pg/mL (0-900) 01/09/22 12:50 Total Protein 7.9 g/dL (6.3-8.2) 01/09/22 12:50 Albumin 2.0 g/dL (3.9-5) L 01/09/22 12:50 Albumin/Globulin Ratio 0.3 % 01/09/22 12:50 Triglycerides 442 mg/dL (2-149) H 01/12/22 02:03 Cholesterol 132 mg/dL (50-199) 01/12/22 02:03 LDL Cholesterol Direct TNR 01/12/22 02:03 HDL Cholesterol 14 mg/dL (40-59) L 01/12/22 02:03 Cholesterol/HDL Ratio 9.42 % 01/12/22 02:03 Procalcitonin > 200.00 ng/mL (<0.15) 01/11/22 07:58 Urine Color Yellow (Yellow) 01/09/22 13:52 Urine Turbidity Hazy (Clear) 01/09/22 13:52 Urine pH 6.0 (5.0-7.0) 01/09/22 13:52 Ur Specific [place] 1.020 (1.003-1.030) 01/09/22 13:52 Urine Protein 100 mg/dl mg/dL (Negative) 01/09/22 13:52 Urine Glucose (UA) Neg mg/dL (Negative) 01/09/22 13:52 Urine Ketones Neg mg/dL (Negative) 01/09/22 13:52 Urine Blood Neg (Negative) 01/09/22 13:52 Urine Nitrite Neg (Negative) 01/09/22 13:52 Urine Bilirubin Neg (Negative) 01/09/22 13:52 Urine Urobilinogen < 2.0 mg/dL (<2.0) 01/09/22 13:52 Ur Leukocyte Esterase Neg (Negative) 01/09/22 13:52 Urine WBC (Auto) 4.0 /HPF (0.0-6.0) 01/09/22 13:52 Urine RBC (Auto) 3.0 /HPF (0.0-6.0) 01/09/22 13:52 U Epithel Cells (Auto) 2.0 /HPF (0-13.0) 01/09/22 13:52 Urine Bacteria (Auto) 1+ /HPF (Negative) 01/09/22 13:52 Urine Mucus Few /HPF 01/09/22 13:52 Urine Total Volume 520 ml 01/23/22 Unknown Urine Creatinine 19.6 mg/dL (0.1-20.0) 01/23/22 Unknown Ur Creatinine 24 Hour 0.1 (0.8-2.8) L 01/23/22 Unknown Random Vancomycin 14.6 ug/mL (0-40.0) 01/29/22 04:09 C. difficile Tox (PCR) Negative (Negative) 01/16/22 10:30 Coronavirus (PCR) Negative (Negative) 01/25/22 08:00 Hepatitis A IgM Ab Non-reactive (NonReactive) 01/14/22 Unknown Hep Bs Antigen Non-reactive (Negative) 01/14/22 Unknown Hep B Core IgM Ab Non-reactive (NonReactive) 01/14/22 Unknown Hepatitis C Antibody Non-reactive (NonReactive) 01/14/22 Unknown Blood Type B POSITIVE 01/27/22 06:54 Antibody Screen Negative 01/27/22 06:54 Crossmatch See Detail 01/27/22 06:54 Microbiology: Microbiology 01/25/22 16:23 Peripheral/Venous Blood Culture - Preliminary NO GROWTH AFTER 72 HOURS 01/25/22 16:23 Peripheral/Venous Blood Culture - Preliminary NO GROWTH AFTER 72 HOURS 01/25/22 18:00 Central Venous Line Catheter Tip Culture - Final Staphylococcus Epidermidis Samuel/IV: Voiding Method External Female Catheter Active Medications - Current Medications Current Medications: Generic Name Dose Route Start Last Admin Trade Name Freq PRN Reason Stop Dose Admin Acetaminophen 650 mg 01/09/22 15:00 01/27/22 21:48 Acetaminophen 325 Mg Tab PO 650 mg Q4H PRN Administration Pain MILD(1-3)/Fever >100.5/RILEY Albuterol 2.5 mg 01/09/22 14:25 Albuterol 2.5 Mg/3 Ml Nebu IH Q4HRT PRN Shortness Of Breath Amlodipine Besylate 10 mg 01/19/22 12:00 01/29/22 09:48 Amlodipine 10 Mg Tab PO 10 mg QDAY JARROD Administration Lipase/Protease/Amylase 1 each 01/18/22 07:11 Lipase 10,500/Protease 25,000/Amylase 43,750 (Units) Dr Gant FEEDTUBE PRN PRN For Clogged Feeding Tube Ascorbic Acid 500 mg 01/09/22 22:00 01/29/22 09:48 Ascorbic Acid 500 Mg Tab PO 500 mg BID JARROD Administration Carvedilol 6.25 mg 01/29/22 10:00 01/29/22 09:48 Carvedilol 6.25 Mg Tab PO 6.25 mg BID JARROD Administration Cholecalciferol 1,000 unit 01/10/22 10:00 01/29/22 09:48 Cholecalciferol (Vit D3) 1000 Unit (25 Mcg) Tab PO 1,000 unit DAILY JARROD Administration Dextrose 0 ml 01/09/22 14:48 Dextrose 10% *Hypoglycemia IV PRN PRN Hypoglycemia Epoetin Ihsan-epbx 10,000 unit 01/29/22 10:00 Epoetin Ihsan-Epbx 10,000 Unit/1 Ml Vial SUB-Q Tu [facility] Heparin Sodium (Porcine) 5,000 unit 01/09/22 22:00 01/29/22 10:06 Heparin 5,000 Unit/1 Ml Vial SUB-Q 5,000 unit Q12HR JARROD Administration Hydralazine HCl 10 mg 01/12/22 11:21 Hydralazine 20 Mg/1 Ml Inj IV Q4HR PRN Hypertension Hydromorphone HCl 0.25 mg 01/09/22 15:00 01/28/22 04:29 Hydromorphone 1 Mg/1 Ml Inj IV 0.25 mg Q4H PRN Administration Pain, Moderate (4-6) Hydromorphone HCl 0.5 mg 01/09/22 15:00 Hydromorphone 1 Mg/1 Ml Inj IV Q23H PRN Pain , Severe (7-10) Sodium Chloride 100 mls @ 999 mls/hr 01/15/22 09:08 Nacl 0.9% IV MYRNA PRN Hypotension Insulin Human Regular 0 units 01/15/22 18:00 01/29/22 06:30 Insulin Regular, Human 100 Units/1 Ml SUB-Q Not Given Q6H [facility] Protocol Ondansetron HCl 4 mg 01/09/22 16:00 Ondansetron 4 Mg/2 Ml Inj IV Q8H PRN Nausea And Vomiting Oxycodone/Acetaminophen 1 tab 01/09/22 15:00 01/22/22 13:17 Oxycodone /Acetaminophen 5-325mg Tab PO 1 tab Q16H PRN Administration Pain, Moderate (4-6) Simple Syrup 15 ml 01/18/22 07:11 Simple Syrup 15 Ml FEEDTUBE PRN PRN Hypoglycemia Simple Syrup 30 ml 01/18/22 07:11 Simple Syrup 15 Ml FEEDTUBE PRN PRN Hypoglycemia Sodium Bicarbonate 325 mg 01/18/22 07:11 Sodium Bicarbonate 325 Mg Tab FEEDTUBE PRN PRN For Clogged Feeding Tube Sodium Chloride 10 ml 01/09/22 22:00 01/29/22 09:48 Sodium Chloride 0.9% 10 Ml Flush Syringe IV 10 ml BID JARROD Administration Sodium Chloride 10 ml 01/09/22 15:00 01/15/22 21:08 Sodium Chloride 0.9% 10 Ml Flush Syringe IV 10 ml PRN PRN Administration LINE FLUSH Zinc Sulfate 220 mg 01/09/22 22:00 01/29/22 09:48 Zinc Sulfate 220 Mg Cap PO 220 mg BID JARROD Administration Nutrition/Malnutrition Assess - Dietary Evaluation Nutrition/Malnutrition Findings: Nutrition Notes Start: 01/10/22 13:52 Freq: Status: Active Protocol: Document 01/25/22 19:52 FLOR (Rec: 01/25/22 20:03 FLOR [id number]) Nutrition Notes Initial or Follow up Reassessment Current Diagnosis Acute Kidney Injury,Decubitus( Pressure Ulcer),Sepsis, Malnutrition Other Pertinent Diagnosis COVID-19/Pneumonia, Metabolic Acidosis, KELSIE/ATN, Dysphagia, Dementia... Current Diet TF-Nepro w/CARBSTEADY @ 30 ml/ hr (since L 01/18). Labs/Tests 01/24: Na 130, Cl 96.4, BUN 53 , Crea 2.3, Glu 130, Ca 7.5. Pertinent Medications 01/25: Vit C, Vit D3, ZnSO4, others nutritionally unremarkable. Height 5 ft 4 in Weight 48 kg [place] Body Weight (kg) 54.54 BMI 18.1 Weight change and time frame No body weight change reported in 16 days. Weight Status Underweight Subjective/Other Information RD consult for write/manage TF . TF continues as prescribed. Pt medically cleared for Discharge, but waiting for placement at SNF or Hospice.. Percent of energy/protein needs met: Prescribed TF-Nepro w/ CARBSTEADY @ 30 ml/hr provides for energy/protein needs (1, 296 Kcal/58 g) during LOS, 77% Kcal; 100% AA. Burn Absent Trauma Absent GI Symptoms None Difficulty In Swallowing Food Allergy No Skin Integrity/Comment Sacral Decubitus Current % PO Other Minimum of two criteria Yes #1 Nutrition Diagnosis Underweight Diagnosis Progress(for reassessment Continues documentation) Is patient on ventilator? No Is Patient Ambulatory and/or Out of Bed No REE-([facility]-confined to bed) 1223.568 Kcal/Kg value to use for calculation 35 Approximate Energy Requirements Using 1680 kcal/Kg Calculation Used for Recommendations Kcal/kg Additional Notes Protein: 1.2-1.5 g/Kg; 58-72 g /day. Fluids: 1 ml/Kcal, or as per MD. Nutrition Intervention Nutrition Support: Continue TF-Nepro w/CARBSTEADY @ 30 ml/hr. Flush: 130 ml water Q 4 hr, or as per MD. Kcal 1,296 Protein (gm) 58 Carbohydrates (gm) 116 Fat (gm) 69 Fluid (mL) 523 Fiber (gm) 9 % RDI: 77% Kcal; 100% AA. Goal #1 Provide at least 75% of energy /protein needs through Enteral Feeding during LOS. Goal #2 Maintain body weight within +/ -3% of admission body weight during LOS. Follow-Up By: 02/01/22 Additional Comments Continue monitoring TF tolerance and BM.
[2022-01-29] MEDS ORDERED: VANCOMYCIN/NS 1 GM/250 ML 1 GM/250 ML BAG IV ONE (13:00)
[2022-01-29] MEDS ORDERED: VANCOMYCIN/NS 1 GM/250 ML 1 GM/250 ML BAG IV SCH (22:00)
[2022-01-30] MEDS: INSULIN REGULAR, HUMAN 100 UNITS/1 ML SUB-Q SCH ×3 (00:08→12:00)
[2022-01-30] MEDS: oxyCODONE /ACETAMINOPHEN 5-325MG TAB PO PRN (05:03)
[2022-01-30] MEDS: HEPARIN 5,000 UNIT/1 ML VIAL SUB-Q SCH (08:59)
[2022-01-30] MEDS: amLODIPine 10 MG TAB PO SCH (09:00)
[2022-01-30] MEDS: ZINC SULFATE 220 MG CAP PO SCH (09:00)
[2022-01-30] MEDS: CHOLECALCIFEROL (VIT D3) 1000 UNIT (25 mcg) TAB PO SCH (09:00)
[2022-01-30] MEDS: ASCORBIC ACID 500 MG TAB PO SCH (09:00)
[2022-01-30] MEDS: carvediloL 6.25 MG TAB PO SCH (09:00)
--- NOTE | 2022-01-30 09:32 | Progress Note ---
Subjective Principal diagnosis: sandy Interval history: Patient was seen today for follow-up of multiple renal related issues No complaints of any chest pain pressure or shortness of breath Interdisciplinary notes that also reviewed Events of 24 hours vitals labs intake output medications were reviewed Past medical history: Reviewed Family history: Reviewed Social history: Reviewed Allergies: Reviewed Physical examination: Vitals: Reviewed HEENT: No pallor or icterus oral mucosa moist Neck: Supple no JVD no thyromegaly Chest: Bilateral clear to auscultation anteriorly Heart: Regular rate and rhythm S1-S2 heard no S3-S4 Abdomen: Soft nontender no voluntary guarding rigidity rebound Extremity: Dry skin less than 1+ peripheral edema Psychiatric: No evidence of agitation and aggression noted Dermatology: No petechial rashes Labs and x-rays: Reviewed from today Assessment and plan Kidney injury, patient was initiated on renal replacement therapy however her renal function has stabilized, creatinine as of yesterday was 2.2 with no electrolyte disturbances, will repeat renal function today for creatinine is satisfactory we will consider discontinuing her permacath. Her creatinine peaked at 4.5 on January 13 and her baseline was around 2.2 on January 09 and her current creatinine is 2.2 now Hyponatremia: Appears to have improved Patient likely has underlying stage IV chronic kidney disease and hence will need to be seen and followed up in the office upon discharge she does have very limited renal prognosis, strict intake and output monitoring is required to avoid dehydration, she should not be given any form of GERARDO inhibitor's or angiotensin receptor patrick #Anemia: Multifactorial given her erythropoietin #Hypocalcemia appears to be improving We'll continue to follow and make recommendation for renal standpoint Acute Objective - Vital Signs Vital signs: Vital Signs - 12hr 01/29/22 01/30/22 22:02 04:54 Temperature 98.4 F 98.6 F Pulse Rate 92 H 80 Respiratory 16 16 Rate Blood Pressure 149/75 134/69 O2 Sat by Pulse 99 98 Oximetry - Lab 01/28/22 07:22 01/29/22 04:09 Most recent lab results Calcium 8.3 mg/dL (8.4-10.2) L 01/29/22 04:09 Phosphorus 4.90 mg/dL (2.5-4.5) H 01/16/22 06:50 Magnesium 1.60 mg/dL (1.7-2.3) L 01/16/22 06:50 Urine Creatinine 19.6 mg/dL (0.1-20.0) 01/23/22 Unknown Medications & Allergies - Medications Allergies/Adverse Reactions: Allergies No Known Allergies Allergy (Verified 01/09/22 11:43) Home Medications: Home Medications Medication Instructions Recorded Confirmed Last Taken Type amLODIPine 10 mg PO QDAY #30 tablet 03/09/21 01/09/22 Unknown Rx carvediloL [Coreg] 3.125 mg PO BID #60 tablet 03/09/21 01/09/22 Unknown Rx Cholecalciferol Vit D3 [Vitamin D3 1,000 unit PO DAILY #30 tablet 01/16/22 Unknown Rx 1,000 UNIT TAB] Losartan [Cozaar] 50 mg PO QDAY #30 tablet 01/18/22 Unknown Rx NIFEdipine XL [Procardia Xl] 30 mg PO QDAY #30 tablet 01/18/22 Unknown Rx Active Medications: Generic Name Dose Route Start Last Admin Trade Name Freq PRN Reason Stop Dose Admin Acetaminophen 650 mg 01/09/22 15:00 01/27/22 21:48 Acetaminophen 325 Mg Tab PO 650 mg Q4H PRN Administration Pain MILD(1-3)/Fever >100.5/RILEY Albuterol 2.5 mg 01/09/22 14:25 Albuterol 2.5 Mg/3 Ml Nebu IH Q4HRT PRN Shortness Of Breath Amlodipine Besylate 10 mg 01/19/22 12:00 01/30/22 09:00 Amlodipine 10 Mg Tab PO 10 mg QDAY JARROD Administration Lipase/Protease/Amylase 1 each 01/18/22 07:11 Lipase 10,500/Protease 25,000/Amylase 43,750 (Units) Dr Stalin SIERRATBILL PRN PRN For Clogged Feeding Tube Ascorbic Acid 500 mg 01/09/22 22:00 01/30/22 09:00 Ascorbic Acid 500 Mg Tab PO 500 mg BID JARROD Administration Carvedilol 6.25 mg 01/29/22 10:00 01/30/22 09:00 Carvedilol 6.25 Mg Tab PO 6.25 mg BID JARROD Administration Cholecalciferol 1,000 unit 01/10/22 10:00 01/30/22 09:00 Cholecalciferol (Vit D3) 1000 Unit (25 Mcg) Tab PO 1,000 unit DAILY JARROD Administration Dextrose 0 ml 01/09/22 14:48 Dextrose 10% *Hypoglycemia IV PRN PRN Hypoglycemia Epoetin Ihsan-epbx 10,000 unit 01/29/22 10:00 01/29/22 18:21 Epoetin Ihsan-Epbx 10,000 Unit/1 Ml Vial SUB-Q Not Given [facility] [place] Heparin Sodium (Porcine) 5,000 unit 01/09/22 22:00 01/30/22 08:59 Heparin 5,000 Unit/1 Ml Vial SUB-Q 5,000 unit Q12HR JARROD Administration Hydralazine HCl 10 mg 01/12/22 11:21 Hydralazine 20 Mg/1 Ml Inj IV Q4HR PRN Hypertension Hydromorphone HCl 0.25 mg 01/09/22 15:00 01/28/22 04:29 Hydromorphone 1 Mg/1 Ml Inj IV 0.25 mg Q4H PRN Administration Pain, Moderate (4-6) Hydromorphone HCl 0.5 mg 01/09/22 15:00 Hydromorphone 1 Mg/1 Ml Inj IV Q23H PRN Pain , Severe (7-10) Sodium Chloride 100 mls @ 999 mls/hr 01/15/22 09:08 Nacl 0.9% IV MYRNA PRN Hypotension Vancomycin HCl 1 gm in 250 mls @ 167.007 mls/hr 01/29/22 22:00 01/29/22 22:04 Vancomycin/Ns 1 Gm/250 Ml IV 167.007 mls/hr Q36H [facility] Administration Insulin Human Regular 0 units 01/15/22 18:00 01/30/22 06:46 Insulin Regular, Human 100 Units/1 Ml SUB-Q Not Given Q6H [facility] Protocol Ondansetron HCl 4 mg 01/09/22 16:00 Ondansetron 4 Mg/2 Ml Inj IV Q8H PRN Nausea And Vomiting Oxycodone/Acetaminophen 1 tab 01/09/22 15:00 01/30/22 05:03 Oxycodone /Acetaminophen 5-325mg Tab PO 1 tab Q16H PRN Administration Pain, Moderate (4-6) Simple Syrup 15 ml 01/18/22 07:11 Simple Syrup 15 Ml FEEDTUBE PRN PRN Hypoglycemia Simple Syrup 30 ml 01/18/22 07:11 Simple Syrup 15 Ml FEEDTUBE PRN PRN Hypoglycemia Sodium Bicarbonate 325 mg 01/18/22 07:11 Sodium Bicarbonate 325 Mg Tab FEEDTUBE PRN PRN For Clogged Feeding Tube Sodium Chloride 10 ml 01/09/22 22:00 01/30/22 09:00 Sodium Chloride 0.9% 10 Ml Flush Syringe IV 10 ml BID JARROD Administration Sodium Chloride 10 ml 01/09/22 15:00 01/15/22 21:08 Sodium Chloride 0.9% 10 Ml Flush Syringe IV 10 ml PRN PRN Administration LINE FLUSH Zinc Sulfate 220 mg 01/09/22 22:00 01/30/22 09:00 Zinc Sulfate 220 Mg Cap PO 220 mg BID JARROD Administration
--- NOTE | 2022-01-30 11:00 | Discharge Summary ---
Providers - Providers Date of Admission: 01/09/22 14:25 Date of discharge: 01/30/22 Attending physician: JESSA NELSON MD 01/11/22 08:46 Consult to Physician [CONS] Routine Comment: Consulting Provider: ANÍBAL WHEATLEY Physician Instructions: Reason For Exam: COVID infection 01/11/22 08:47 Consult to Physician [CONS] Routine Comment: Consulting Provider: CASS WEISS Physician Instructions: Reason For Exam: KELSIE 01/13/22 15:21 Consult to Physician [CONS] Routine Comment: Consulting Provider: HENRIETTA TRIVEDI Physician Instructions: Reason For Exam: vascath insertion for 01/14, KELSIE 01/14/22 06:48 Consult to Wound/ET Nurse [CONS] Routine Reason For Exam: wound eval 01/16/22 12:52 Consult to Dietitian/Nutrition [CONS] Routine Physician Instructions: Reason For Exam: Reason for Consult: Write/Manage Tube Feeding 01/16/22 15:24 Consult to Physician [CONS] Routine Comment: Consulting Provider: HENRIETTA STOCK Physician Instructions: Reason For Exam: Permacath placement 01/18/22 07:11 Consult to Dietitian/Nutrition [CONS] Routine Physician Instructions: Assess nutrtn needs, initiate, modify, manage TF Reason For Exam: Reason for Consult: Write/Manage Tube Feeding Reason for Consult: Write/Manage Tube Feeding 01/28/22 09:03 Consult to Physician [CONS] Routine Comment: Consulting Provider: CHARLOTTE HANKINS Physician Instructions: Reason For Exam: fever 01/28/22 17:23 Consult to Wound/ET Nurse [CONS] Routine Reason For Exam: wound eval 01/30/22 07:32 Consult to Physician [CONS] Urgent Comment: Attempting to discharge today Consulting Provider: HENRIETTA STOCK Physician Instructions: Reason For Exam: Permacath removal Primary care physician: GEETA RUVALCABA Hospitalization Reason for admission: Sepsis; acute hypoxic respiratory failure; acute metabolic encephalopathy Condition: Stable Pertinent studies: Reviewed. Procedures: Vas-Cath placement. Permacath placement. Permacath removal. Hospital course: Patient is a 62-year-old female past medical history of vascular dementia, cerebral atherosclerosis, malnutrition, and debility who presented from a [facility] for decreased cognition, increased confusion and worsening weakness. The patient was evaluated in the ED and found to be hypoxic to 80% on room air, febrile to 101.2 F, tachycardic in the 130s, and tachypneic in the 40s. Chest x-ray revealed bilateral pneumonia complicated by sepsis as well as toxic metabolic encephalopathy. The patient was started on IV fluids and antibiotics for sepsis management. Presentation the patient was also found to have hypernatremia (sodium 154), hyperkalemia (potassium 5.3), and a negative lactic acid. The patient was found to be positive for COVID-19 complicated by acute hypoxic respiratory failure; however, she was not a luis te for remdesivir in the setting of worsening renal function. Infectious disease was consulted for further management. The patient's creatinine continued to uptrend, and nephrology was consulted. It was deemed that the patient likely had KELSIE secondary to COVID-19 infection versus ESRD. The patient had a Vas-Cath placed by vascular surgery on 01/14/2022 that was eventually replaced with a permacath on 01/17/2022. The patient has since been weaned off of supplemental oxygen and is currently hemodynamically stable. The patient's family discussed with case management about hospice care on 01/23/2022, and the decision was made to accept hospice services on 01/24/2022. Due to the patient not being declared ESRD, a hemodialysis chair request was denied. Nephrology was notified. Further time was allotted in order to allow for renal recovery. The decision was made to have the permacath removed on 01/30/2022 by vascular surgery. After which the patient will return to her halfway under hospice care. Patient's family expresses understanding. Patient is medically clear for discharge. Disposition: 03 [facility] Final Discharge Diagnosis (Prints w/discharge instructions): Acute hypoxic respiratory failure, COVID-19 pneumonia, sepsis, acute metabolic encephalopathy, ATN, metabolic acidosis, dysphagia, severe protein caloric malnutrition, sacral decubitus ulcer, history of vascular dementia Time spent for discharge: 45 min Core Measure Documentation - Palliative Care Palliative Care/ Comfort Measures: Hospice Care - Core Measures Any of the following diagnoses?: history only Exam - Constitutional Vitals: Temp Pulse Resp BP Pulse Ox 98.6 F 80 16 134/69 98 01/30/22 04:54 01/30/22 04:54 01/30/22 04:54 01/30/22 04:54 01/30/22 04:54 General appearance: Present: no acute distress, cachectic - EENT Eyes: Present: PERRL, EOM intact ENT: hearing intact, clear oral mucosa - Neck Neck: Present: supple, normal ROM - Respiratory Respiratory effort: normal Respiratory: bilateral: diminished - Cardiovascular Rhythm: regular Heart Sounds: Present: S1 & S2 - Extremities Extremities: pulses intact, pulses symmetrical, normal temperature, normal color Peripheral Pulses: within normal limits - Abdominal General gastrointestinal: Present: soft, non-tender, non-distended, normal bowel sounds, other (PEG tube in place) Female genitourinary: Present: deferred - Rectal Rectal Exam: deferred - Integumentary Integumentary: Present: clear, warm, dry - Musculoskeletal Musculoskeletal: generalized weakness - Psychiatric Psychiatric: cooperative - Allied Health Allied health notes reviewed: nursing Plan Activity: no restrictions Diet: renal (Tube feeds) Additional Instructions: Patient is a 62-year-old female past medical history of vascular dementia, cerebral atherosclerosis, malnutrition, and debility who presented from a [facility] for decreased cognition, increased confusion and worsening weakness. The patient was evaluated in the ED and found to be hypoxic to 80% on room air, febrile to 101.2 F, tachycardic in the 130s, and tachypneic in the 40s. Chest x-ray revealed bilateral pneumonia complicated by sepsis as well as toxic metabolic encephalopathy. The patient was started on IV fluids and antibiotics for sepsis management. Presentation the patient was also found to have hypernatremia (sodium 154), hyperkalemia (potassium 5.3), and a negative lactic acid. The patient was found to be positive for COVID-19 complicated by acute hypoxic respiratory failure; however, she was not a candidate for remdesivir in the setting of worsening renal function. Infectious disease was consulted for further management. The patient's creatinine continued to uptrend, and nephrology was consulted. It was deemed that the patient likely had KELSIE secondary to COVID-19 infection versus ESRD. The patient had a Vas-Cath placed by vascular surgery on 01/14/2022 that was eventually replaced with a permacath on 01/17/2022. The patient has since been weaned off of supplemental oxygen and is currently hemodynamically stable. The patient's family discussed with case management about hospice care on 01/23/2022, and the decision was made to accept hospice services on 01/24/2022. Due to the patient not being declared ESRD, a hemodialysis chair request was denied. Nephrology was notified. Further time was allotted in order to allow for renal recovery. The decision was made to have the permacath removed on 01/30/2022 by vascular surgery. After which the patient will return to her halfway under hospice care. Patient's family expresses understanding. Patient is medically clear for discharge. Care Plan Goals: Patient is medically cleared for discharge. Assessment: Patient is a 62-year-old female past medical history of vascular dementia, cerebral atherosclerosis, malnutrition, and debility who presented from a [facility] for decreased cognition, increased confusion and worsening weakness. The patient was evaluated in the ED and found to be hypoxic to 80% on room air, febrile to 101.2 F, tachycardic in the 130s, and tachypneic in the 40s. Chest x-ray revealed bilateral pneumonia complicated by sepsis as well as toxic metabolic encephalopathy. The patient was started on IV fluids and antibiotics for sepsis management. Presentation the patient was also found to have hypernatremia (sodium 154), hyperkalemia (potassium 5.3), and a negative lactic acid. The patient was found to be positive for COVID-19 complicated by acute hypoxic respiratory failure; however, she was not a candidate for remdesivir in the setting of worsening renal function. Infectious disease was consulted for further management. The patient's creatinine continued to uptrend, and nephrology was consulted. It was deemed that the patient likely had KELSIE secondary to COVID-19 infection versus ESRD. The patient had a Vas-Cath placed by vascular surgery on 01/14/2022 that was eventually replaced with a permacath on 01/17/2022. The patient has since been weaned off of supplemental oxygen and is currently hemodynamically stable. The patient's family discussed with case management about hospice care on 01/23/2022, and the decision was made to accept hospice services on 01/24/2022. Due to the patient not being declared ESRD, a hemodialysis chair request was denied. Nephrology was notified. Further time was allotted in order to allow for renal recovery. The decision was made to have the permacath removed on 01/30/2022 by vascular surgery. After which the patient will return to her halfway under hospice care. Patient's family expresses understanding. Patient is medically clear for discharge. Follow up with: GEETA RUVALCABA MD [Primary Care Provider] - 3-5 Days Prescriptions: amLODIPine 10 mg PO QDAY #30 tablet carvediloL [Coreg] 6.25 mg PO BID #60 tablet Losartan [Cozaar] 50 mg PO QDAY #30 tablet NIFEdipine XL [Procardia Xl] 30 mg PO QDAY #30 tablet Cholecalciferol Vit D3 [Vitamin D3 1,000 UNIT TAB] 1,000 unit PO DAILY #30 tablet
[2022-01-30 14:06] LABS: Calcium 8.2 mg/dL (8.4-10.2)
[2022-01-30 17:54] VITALS: BP 132/59
--- NOTE | 2022-01-30 20:09 | Operative Report ---
Operative Report Operative Report: Operative Report Operative Report: Date of procedure: 01/30/2022 Pre-operative diagnosis: Resolved Acute Renal Post-operative diagnosis: Same Procedure(s): Removal of Left Internal Jugular Permacath Surgeon: Grey Draper MD Automotive [employer] Clerk: None Anesthesia: None EBL: None Counts: Correct Complications: None Condition: Stable Findings: Left Internal Jugular Permacath was Removed, in Whole. Specimen: Left Internal Jugular Permacath was Discarded. Indication: The patient is a 62-year-old female who had a permacath in place secondary to presenting with acute renal failure requiring urgent dialysis. She no longer requires the permacath and requires removal prior to discharge. Family was given the risk, benefits, and alternatives and consented to the procedure. Description of Procedure: The procedure was performed at the patient's bedside. The patient's left neck, chest, and indwelling catheter were prepped and draped in normal sterile fashion. Continuous, steady, retraction was placed on the catheter until it was removed from the exit site on the chest. A sterile occlusive dressing was then placed over the exit site on the chest. The patient tolerated the procedure well and remained in her room in sterile condition.
== END 2022-01-30 19:00 | DRG 871 ==
LOC: ED 11:39 → 3A 14:25
PROVIDERS: ADMIT Internal Medicine; ATTEND Student in an Organized Health Care Education/Training Program
PROC: 02HV33Z Insertion of Infusion Device into Superior Vena Cava, Percutaneous Approach (ICD-10-PCS; 2022-01-09)
PROC: B548ZZA Ultrasonography of Superior Vena Cava, Guidance (ICD-10-PCS; 2022-01-09)
PROC: 02H633Z Insertion of Infusion Device into Right Atrium, Percutaneous Approach (ICD-10-PCS; 2022-01-14)
PROC: B5181ZA Fluoroscopy of Superior Vena Cava using Low Osmolar Contrast, Guidance (ICD-10-PCS; 2022-01-14)
PROC: B548ZZA Ultrasonography of Superior Vena Cava, Guidance (ICD-10-PCS; 2022-01-14)
PROC: 5A1D70Z Performance of Urinary Filtration, Intermittent, Less than 6 Hours Per Day (ICD-10-PCS; 2022-01-15)
PROC: 5A1D70Z Performance of Urinary Filtration, Intermittent, Less than 6 Hours Per Day (ICD-10-PCS; 2022-01-17)
PROC: 0JH63XZ Insertion of Tunneled Vascular Access Device into Chest Subcutaneous Tissue and Fascia, Percutaneous Approach (ICD-10-PCS; 2022-01-17)
PROC: 02H633Z Insertion of Infusion Device into Right Atrium, Percutaneous Approach (ICD-10-PCS; 2022-01-17)
PROC: B5181ZA Fluoroscopy of Superior Vena Cava using Low Osmolar Contrast, Guidance (ICD-10-PCS; 2022-01-17)
PROC: B548ZZA Ultrasonography of Superior Vena Cava, Guidance (ICD-10-PCS; 2022-01-17)
PROC: 5A1D70Z Performance of Urinary Filtration, Intermittent, Less than 6 Hours Per Day (ICD-10-PCS; 2022-01-19)
PROC: 5A1D70Z Performance of Urinary Filtration, Intermittent, Less than 6 Hours Per Day (ICD-10-PCS; 2022-01-22)
PROC: 30233N1 Transfusion of Nonautologous Red Blood Cells into Peripheral Vein, Percutaneous Approach (ICD-10-PCS; principal; 2022-01-23)
PROC: 5A1D70Z Performance of Urinary Filtration, Intermittent, Less than 6 Hours Per Day (ICD-10-PCS; 2022-01-24)
PROC: 5A1D70Z Performance of Urinary Filtration, Intermittent, Less than 6 Hours Per Day (ICD-10-PCS; 2022-01-26)
PROC: 0JPT3XZ Removal of Tunneled Vascular Access Device from Trunk Subcutaneous Tissue and Fascia, Percutaneous Approach (ICD-10-PCS; 2022-01-30)
PROC: 02PAX3Z Removal of Infusion Device from Heart, External Approach (ICD-10-PCS; 2022-01-30)
DX: A41.9 Sepsis, unspecified organism (principal); U07.1 COVID-19; J12.82 Pneumonia due to coronavirus disease 2019; J96.01 Acute respiratory failure with hypoxia; E43 Unspecified severe protein-calorie malnutrition; G92.8 Other toxic encephalopathy; N17.0 Acute kidney failure with tubular necrosis; N18.6 End stage renal disease; Z68.1 Body mass index [BMI] 19.9 or less, adult; E87.0 Hyperosmolality and hypernatremia; I12.0 Hypertensive chronic kidney disease with stage 5 chronic kidney disease or end stage renal disease; F01.50 Vascular dementia, unspecified severity, without behavioral disturbance, psychotic disturbance, mood disturbance, and anxiety; I67.2 Cerebral atherosclerosis; Z83.3 Family history of diabetes mellitus; R13.10 Dysphagia, unspecified; L89.159 Pressure ulcer of sacral region, unspecified stage; D64.9 Anemia, unspecified; Z82.49 Family history of ischemic heart disease and other diseases of the circulatory system
CPT/HCPCS: 36415; 36556; 36558; 71045; 76770; 77001; 78580; 80048; 80061; 80074; 80076; 80202; 81001; 82140; 82570; 82728; 82962; 83615; 83735; 83880; 84100; 84145; 84295; 84484; 85007; 85025; 85027; 85379; 85730; 86140; 86850; 86900; 86901; 86920; 87040; 87076; 87116; 87186; 87493; 93005; 93010; 93970; 94640; 94760; G0378; J3490; Q0162; Q9967; A9540; C1750; C1752; C1769; J0456; J0610; J0696; J1170; J1644; J1815; J2250; J2543; J2920; J3010; J3370; J3480; J7030; J7040; J7050; J7070; P9016; U0003

== ENCOUNTER 2022-03-18 13:14 | Inpatient (IN) | payer MEDICAID ==
[2022-03-18] MEDS ORDERED: IPRATROPIUM 0.02% NEBU 2.5 ML IH ONE (15:13)
[2022-03-18] MEDS ORDERED: ALBUTEROL 2.5 MG/3 ML NEBU IH ONE ×2 (15:13→16:49)
[2022-03-18 16:04] LABS: Hematocrit 22.1 % (30.3-42.9); Hemoglobin 7.4 gm/dl (10.1-14.3); Mean Corpuscular HGB Conc 34 % (30-34); Mean Corpuscular Volume 87 fl (79-97); Platelet Count 376 K/mm3 (140-440); Red Blood Count 2.55 M/mm3 (3.65-5.03); Red Cell Distribution Width 15.1 % (13.2-15.2)
[2022-03-18 16:32] LABS: Albumin 1.8 g/dL (3.9-5); Calcium 8.8 mg/dL (8.4-10.2)
[2022-03-18] MEDS ORDERED: DEXTROSE 50% IN WATER (25GM) 50 ML SYRINGE IV ONE (16:52)
[2022-03-18] MEDS ORDERED: INSULIN REGULAR, HUMAN 100 UNITS/1 ML IV ONE (16:52)
[2022-03-18 16:53] LABS: Band Neutrophils # (Manual) 2.8 K/mm3; Basophils % (Manual) 0 % (0.0-1.8); Eosinophils % (Manual) 0 % (0.0-4.3); Total Cells Counted 100
[2022-03-18] MEDS ORDERED: SODIUM POLYSTYRENE 15 GM/60 ML ORAL LIQD PO ONE (16:53)
[2022-03-18 16:55] LABS: Platelet Estimate Consistent w Auto
[2022-03-18 16:56] LABS: Hypochromasia 1+; RBC Morphology Normal
[2022-03-18 17:14] LABS: Chol/HDL Ratio 7.69 %; HDL Cholesterol 13 mg/dL (40-59); LDL Cholesterol,Direct TNR mg/dL (50-130)
--- NOTE | 2022-03-18 17:33 | XRay Report ---
CHEST 1 VIEW 03/18/2022 4:26 PM INDICATION / CLINICAL INFORMATION: Dyspnea. COMPARISON: 01/09/2022 FINDINGS: SUPPORT DEVICES: None. HEART / MEDIASTINUM: No significant abnormality. LUNGS / PLEURA: Mild bilateral perihilar interstitial opacities. No pneumothorax. ADDITIONAL FINDINGS: No significant additional findings. IMPRESSION: 1. Mild bilateral perihilar interstitial opacities, likely interstitial edema. Signer Name: Ton Izaguirre MD Signed: 03/18/2022 5:29 PM Workstation Name: [id number]
--- NOTE | 2022-03-18 17:59 | Emergency Department Report ---
ED Shortness of Breath HPI - General Chief Complaint: Dyspnea/Respdistress Stated Complaint: LUIS E Time Seen by Provider: 03/18/22 15:12 Source: EMS Mode of arrival: Stretcher Limitations: Altered Mental Status, Physical Limitation - History of Present Illness Initial Comments: pt is coming from rehab place for SOB and LUIS E , pt looks weak with bordeline BP , rales noted , MD Complaint: shortness of breath -: Gradual Consistency: intermittent Improves With: nothing Known History Of: congestive heart failure, recurrent pnemonia Treatments Prior to Arrival: none - Related Data Home Oxygen Therapy: No Previous Rx's Medication Instructions Recorded Last Taken Type amLODIPine 10 mg PO QDAY #30 tablet 03/09/21 Unknown Rx carvediloL [Coreg] 3.125 mg PO BID #60 tablet 03/09/21 Unknown Rx Cholecalciferol Vit D3 [Vitamin D3 1,000 unit PO DAILY #30 tablet 01/16/22 Unknown Rx 1,000 UNIT TAB] Losartan [Cozaar] 50 mg PO QDAY #30 tablet 01/18/22 Unknown Rx NIFEdipine XL [Procardia Xl] 30 mg PO QDAY #30 tablet 01/18/22 Unknown Rx amLODIPine 10 mg PO QDAY #30 tablet 01/30/22 Unknown Rx carvediloL [Coreg] 6.25 mg PO BID #60 tablet 01/30/22 Unknown Rx Allergies Allergy/AdvReac Type Severity Reaction Status Date / Time No Known Allergies Allergy Verified 01/09/22 11:43 ED Review of Systems ROS: Stated complaint: LUIS E Other details as noted in HPI Constitutional: denies: chills, fever Eyes: denies: eye pain, eye discharge, vision change ENT: denies: ear pain, throat pain Respiratory: denies: cough, shortness of breath, wheezing Cardiovascular: denies: chest pain, palpitations Endocrine: no symptoms reported Gastrointestinal: denies: abdominal pain, nausea, diarrhea Genitourinary: denies: urgency, dysuria, discharge Musculoskeletal: denies: back pain, joint swelling, arthralgia Skin: denies: rash, lesions Neurological: denies: headache, weakness, paresthesias Psychiatric: denies: anxiety, depression Hematological/Lymphatic: denies: easy bleeding, easy bruising ED Past Medical Hx - Past Medical History Hx Hypertension: Yes Hx HIV: No - Social History Smoking Status: Never Smoker - Medications Home Medications: Home Medications Medication Instructions Recorded Confirmed Last Taken Type amLODIPine 10 mg PO QDAY #30 tablet 03/09/21 01/09/22 Unknown Rx carvediloL [Coreg] 3.125 mg PO BID #60 tablet 03/09/21 01/09/22 Unknown Rx Cholecalciferol Vit D3 [Vitamin D3 1,000 unit PO DAILY #30 tablet 01/16/22 Unknown Rx 1,000 UNIT TAB] Losartan [Cozaar] 50 mg PO QDAY #30 tablet 01/18/22 Unknown Rx NIFEdipine XL [Procardia Xl] 30 mg PO QDAY #30 tablet 01/18/22 Unknown Rx amLODIPine 10 mg PO QDAY #30 tablet 01/30/22 Unknown Rx carvediloL [Coreg] 6.25 mg PO BID #60 tablet 01/30/22 Unknown Rx ED Physical Exam - General Limitations: Altered Mental Status, Physical Limitation General appearance: alert, in distress, obese - Head Head exam: Present: atraumatic, normocephalic - Eye Eye exam: Present: normal appearance - ENT ENT exam: Present: mucous membranes moist - Neck Neck exam: Present: normal inspection - Respiratory Respiratory exam: Present: normal lung sounds bilaterally. Absent: respiratory distress - Cardiovascular Cardiovascular Exam: Present: regular rate, normal rhythm. Absent: systolic murmur, diastolic murmur, rubs, gallop - GI/Abdominal GI/Abdominal exam: Present: soft, normal bowel sounds - Back Exam Back exam: Present: normal inspection - Neurological Exam Neurological exam: Present: other (cponfused weak ) - Skin Skin exam: Present: warm, dry, intact, normal color. Absent: rash ED Course Vital Signs 03/18/22 03/18/22 03/18/22 13:51 16:05 17:41 Temperature 98.5 F Pulse Rate 103 H 107 H Pulse Rate [ 85 Bilateral] Respiratory 18 22 Rate Respiratory 42 H Rate [Bilateral ] Blood Pressure 106/66 117/69 [Left] O2 Sat by Pulse 97 99 Oximetry ED Medical Decision Making - Lab Data Result diagrams: 03/18/22 15:42 03/18/22 15:42 - Radiology Data Radiology results: report reviewed, image reviewed - Medical Decision Making work up showed KELSIE and hyperkalemia, protocol applied , paged dr Barbosa for neprhology CHF noted , will admit Critical care attestation.: If time is entered above; I have spent that time in minutes in the direct care of this critically ill patient, excluding procedure time. ED Disposition Clinical Impression: CHF (congestive heart failure), KELSIE (acute kidney injury), Hyperkalemia, Elevated troponin Disposition: 09 ADMITTED INPATIENT Is pt being admited?: Yes Does the pt Need Aspirin: No Condition: Critical
[2022-03-18] MEDS ORDERED: CALCIUM CHLORIDE 1,000 MG in SODIUM CHLORIDE 0.9% 100 ML IV ONE (18:00)
--- NOTE | 2022-03-18 18:38 | Event Note ---
Case discussed with emergency room physician patient being admitted here with renal failure, shortness of breath, currently hemodynamically stable, being admitted to ICU has longstanding history of hypertension, on multiple medications in the outpatient setting, noted to be anemic with a hemoglobin of 7.4 creatinine 6.8 with a bicarbonate of 13 and potassium of 6.2, Patient has been treated for hyperkalemia also does have history of congestive heart failure and with elevated troponin for which work-up is in progress, Discussed with emergency room physician, patient will need follow-up on the renal function, for hyperkalemia, treat with diuretics for now we will order all the renal related labs renal ultrasonogram, there is no emergent indication for renal replacement therapy
--- NOTE | 2022-03-18 18:38 | Consultation ---
History of Present Illness - History of Present Illness Thank you for the consultation Patient was evaluated today My assessment and plan are as follows #Worsening renal failure in the patient is 62-year-old and has had history of acute on chronic kidney disease her baseline creatinine has been close to 2, patient was on renal placement therapy in the last admission in January 2022: Old records were reviewed from patient's chart she was seen by my partner in January 2022 patient was felt to have acute kidney injury secondary to COVID related renal injury and was placed on renal placement therapy, during that admission her creatinine had come down to 1.6, I saw the patient on January 30 at that time her renal function was continuing to improve, permacath was discontinued she has been readmitted here with worsening renal failure Avoid any form of GERARDO inhibitor or angiotensin receptor patrick, repeat basic metabolic profile to follow, #There is no emergent indication for renal placement therapy at this time, will check bladder scan #Anemia possibly multifactorial partly chronic due to chronic kidney disease rule out other causes Elevated troponin, relatively high for kidney disease with elevated BNP rule out heart failure, patient also does have severe protein calorie malnutrition, Lactic acidosis, multifactorial Metabolic acidosis with hyperkalemia with congestive heart failure, treated conservatively, give diuretics for now and follow-up on the labs Overall renal prognosis remains guarded at this time If you have any questions regarding this patient's renal care please feel free to reach outIf you have any questions regarding this patient's renal care please feel free to reach out without any hesitation without any hesitation Author: Naldo Stinson M.D. [facility], [address] [place] [address] Tel; [phone] Source of information: Current chart as well as old record patient unable to provide history History of present illness 62-year-old -[place] female who has been admitted here with worsening renal failure shortness of breath, also noted to be acidotic hyperkalemic, patient is being treated conservatively, patient is known to me from previous admission, all records were also reviewed, her hyperkalemia is being treated medically at this point, records show that she was taking losartan in the outpatient setting in addition to other medications upon arrival noted to have a BUN of 146 creatinine of 6.8 sodium 131 potassium 6.2 with bicarbonate 13 consultation was placed for management of renal failure, worsening in the set ting of congestive heart failure possible Past medical history: Reviewed from the current chart required dialysis in the previous admission and subsequently was discontinued Current allergies: Reviewed from the current chart Social history: Reviewed from the current chart Family history: Reviewed from the current chart Review of system: Positive for shortness of breath, patient appears to be encephalopathic unable to provide much history, All other review of systems negative Physical examination Vitals: Reviewed General: No acute distress HEENT: Oral mucosa moist no pallor or icterus Neck: Supple without any JVD thyromegaly or nodular mass Chest: Bilateral basilar crackles Heart: Regular rate and rhythm S1-S2 heard no S3-S4 Abdomen: Soft nontender, bowel sounds present no renal bruit no suprapubic masses no CVA tenderness noted Extremity: More than 1+ peripheral edema dry skin no peripheral cyanosis Endocrine: Thyroid not enlarged Psychiatric: No agitation and aggression noted Musculoskeletal: No joint effusion noted Labs and x-rays: Reviewed from this admission Medications and Allergies Allergies Allergy/AdvReac Type Severity Reaction Status Date / Time No Known Allergies Allergy Verified 01/09/22 11:43 Home Medications Medication Instructions Recorded Confirmed Last Taken Type amLODIPine 10 mg PO QDAY #30 tablet 03/09/21 01/09/22 Unknown Rx carvediloL [Coreg] 3.125 mg PO BID #60 tablet 03/09/21 01/09/22 Unknown Rx Cholecalciferol Vit D3 [Vitamin D3 1,000 unit PO DAILY #30 tablet 01/16/22 Unknown Rx 1,000 UNIT TAB] Losartan [Cozaar] 50 mg PO QDAY #30 tablet 01/18/22 Unknown Rx NIFEdipine XL [Procardia Xl] 30 mg PO QDAY #30 tablet 01/18/22 Unknown Rx amLODIPine 10 mg PO QDAY #30 tablet 01/30/22 Unknown Rx carvediloL [Coreg] 6.25 mg PO BID #60 tablet 01/30/22 Unknown Rx Exam - Vital Signs Vital signs: Vital Signs Temp Pulse Resp BP Pulse Ox 98.5 F 103 H 18 106/66 97 03/18/22 13:51 03/18/22 13:51 03/18/22 13:51 03/18/22 13:51 03/18/22 13:51 Results - Lab Results 03/19/22 04:30 03/19/22 13:01 Most recent lab results Calcium 8.8 mg/dL (8.4-10.2) 03/18/22 15:42
--- NOTE | 2022-03-18 20:12 | History and Physical Report ---
History of Present Illness Date of examination: 03/18/22 Date of admission: March 18, 2022 Chief complaint: Increasing shortness of breath for 2 days History of present illness: 62-year-old female with history of hypertension for increasing shortness of breath. No chest pain. No fever or chills. Patient is hypoxic in the emergency room. Patient was put on 100% nonrebreather. Oxygen levels came up with 100% nonrebreather. Patient in respiratory distress. Moderate. Much history could not be obtained - Past Medical History --Hypertension: Yes --HIV: No - Social History Smoking Status: Never Smoker - Medications Home Medications: Home Medications Medication Instructions Recorded Confirmed Last Taken Type amLODIPine 10 mg PO QDAY #30 tablet 03/09/21 01/09/22 Unknown Rx carvediloL [Coreg] 3.125 mg PO BID #60 tablet 03/09/21 01/09/22 Unknown Rx Cholecalciferol Vit D3 [Vitamin D3 1,000 unit PO DAILY #30 tablet 01/16/22 Unknown Rx 1,000 UNIT TAB] Losartan [Cozaar] 50 mg PO QDAY #30 tablet 01/18/22 Unknown Rx NIFEdipine XL [Procardia Xl] 30 mg PO QDAY #30 tablet 01/18/22 Unknown Rx amLODIPine 10 mg PO QDAY #30 tablet 01/30/22 Unknown Rx carvediloL [Coreg] 6.25 mg PO BID #60 tablet 01/30/22 Unknown Rx Review of Systems ROS: Stated complaint: LUIS E Other details as noted in HPI Constitutional: denies: chills, fever Eyes: denies: eye pain, eye discharge, vision change ENT: denies: ear pain, throat pain Respiratory: denies: cough, shortness of breath, wheezing Cardiovascular: denies: chest pain, palpitations Endocrine: no symptoms reported Gastrointestinal: denies: abdominal pain, nausea, diarrhea Genitourinary: denies: urgency, dysuria, discharge Musculoskeletal: denies: back pain, joint swelling, arthralgia Skin: denies: rash, lesions Neurological: denies: headache, weakness, paresthesias Psychiatric: denies: anxiety, depression Hematological/Lymphatic: denies: easy bleeding, easy bruising Medications and Allergies Allergies Allergy/AdvReac Type Severity Reaction Status Date / Time No Known Allergies Allergy Verified 01/09/22 11:43 Home Medications Medication Instructions Recorded Confirmed Last Taken Type amLODIPine 10 mg PO QDAY #30 tablet 03/09/21 01/09/22 Unknown Rx carvediloL [Coreg] 3.125 mg PO BID #60 tablet 03/09/21 01/09/22 Unknown Rx Cholecalciferol Vit D3 [Vitamin D3 1,000 unit PO DAILY #30 tablet 01/16/22 Unknown Rx 1,000 UNIT TAB] Losartan [Cozaar] 50 mg PO QDAY #30 tablet 01/18/22 Unknown Rx NIFEdipine XL [Procardia Xl] 30 mg PO QDAY #30 tablet 01/18/22 Unknown Rx amLODIPine 10 mg PO QDAY #30 tablet 01/30/22 Unknown Rx carvediloL [Coreg] 6.25 mg PO BID #60 tablet 01/30/22 Unknown Rx Exam - Constitutional Vitals: Temp Pulse Resp BP Pulse Ox 98.5 F 107 H 22 117/69 99 03/18/22 13:51 03/18/22 17:41 03/18/22 17:41 03/18/22 17:41 03/18/22 17:41 General appearance: Present: severe distress, well-nourished - EENT Eyes: Present: PERRL ENT: hearing intact, clear oral mucosa - Neck Neck: Present: supple, normal ROM - Respiratory Respiratory effort: normal Respiratory: bilateral: CTA, rales, rhonchi - Cardiovascular Heart rate: 88 Rhythm: regular Heart Sounds: Present: S1 & S2. Absent: rub, click - Extremities Extremities: pulses symmetrical, No edema Peripheral Pulses: within normal limits - Abdominal General gastrointestinal: Present: soft, non-tender, non-distended, normal bowel sounds Female genitourinary: Present: normal - Integumentary Integumentary: Present: clear, warm, dry - Musculoskeletal Musculoskeletal: gait normal, strength equal bilaterally - Psychiatric Psychiatric: appropriate mood/affect, intact judgment & insight - Neurologic Neurologic: CNII-XII intact, moves all extremities HEART Score - HEART Score History: Highly suspicious Risk factors: > 3 risk factors or hx of atherosclerotic disease Troponin: Troponin T 0.506 ng/mL (0.00-0.029) H* 03/18/22 15:42 Troponin: 1-3x normal limit - Critical Actions Critical Actions: 4-6 pts:12-16.6% risk of adverse cardiac event. Should be admitted Results - Labs CBC & Chem 7: 03/19/22 04:30 03/19/22 04:30 Labs: Laboratory Last Values WBC 8.1 K/mm3 (4.5-11.0) 03/18/22 15:42 RBC 2.55 M/mm3 (3.65-5.03) L 03/18/22 15:42 Hgb 7.4 gm/dl (10.1-14.3) L 03/18/22 15:42 Hct 22.1 % (30.3-42.9) L 03/18/22 15:42 MCV 87 fl (79-97) 03/18/22 15:42 MCH 29 pg (28-32) 03/18/22 15:42 MCHC 34 % (30-34) 03/18/22 15:42 RDW 15.1 % (13.2-15.2) 03/18/22 15:42 Plt Count 376 K/mm3 (140-440) 03/18/22 15:42 Add Manual Diff Complete 03/18/22 15:42 Total Counted 100 03/18/22 15:42 Seg Neutrophils % Irrigation Service Technician 03/18/22 15:42 Seg Neuts % (Manual) 52.0 % (40.0-70.0) 03/18/22 15:42 Band Neutrophils % 35.0 % 03/18/22 15:42 Lymphocytes % (Manual) 4.0 % (13.4-35.0) L 03/18/22 15:42 Reactive Lymphs % (Man) 0 % 03/18/22 15:42 Monocytes % (Manual) 1.0 % (0.0-7.3) 03/18/22 15:42 Eosinophils % (Manual) 0 % (0.0-4.3) 03/18/22 15:42 Basophils % (Manual) 0 % (0.0-1.8) 03/18/22 15:42 Metamyelocytes % 8.0 % 03/18/22 15:42 Myelocytes % 0 % 03/18/22 15:42 Promyelocytes % 0 % 03/18/22 15:42 Blast Cells % 0 % 03/18/22 15:42 Nucleated RBC % Not Reportable 03/18/22 15:42 Seg Neutrophils # Man 4.2 K/mm3 (1.8-7.7) 03/18/22 15:42 Band Neutrophils # 2.8 K/mm3 03/18/22 15:42 Lymphocytes # (Manual) 0.3 K/mm3 (1.2-5.4) L 03/18/22 15:42 Abs React Lymphs (Man) 0.0 K/mm3 03/18/22 15:42 Monocytes # (Manual) 0.1 K/mm3 (0.0-0.8) 03/18/22 15:42 Eosinophils # (Manual) 0.0 K/mm3 (0.0-0.4) 03/18/22 15:42 Basophils # (Manual) 0.0 K/mm3 (0.0-0.1) 03/18/22 15:42 Metamyelocytes # 0.6 K/mm3 03/18/22 15:42 Myelocytes # 0.0 K/mm3 03/18/22 15:42 Promyelocytes # 0.0 K/mm3 03/18/22 15:42 Blast Cells # 0.0 K/mm3 03/18/22 15:42 WBC Morphology Not Reportable 03/18/22 15:42 Hypersegmented Neuts Not Reportable 03/18/22 15:42 Hyposegmented Neuts 3+ 03/18/22 15:42 Hypogranular Neuts Not Reportable 03/18/22 15:42 Smudge Cells Not Reportable 03/18/22 15:42 Toxic Granulation Not Reportable 03/18/22 15:42 Toxic Vacuolation Not Reportable 03/18/22 15:42 Dohle Bodies Not Reportable 03/18/22 15:42 Pelger-Huet Anomaly Not Reportable 03/18/22 15:42 Lesley Rods Not Reportable 03/18/22 15:42 Platelet Estimate Consistent w auto 03/18/22 15:42 Clumped Platelets Not Reportable 03/18/22 15:42 Plt Clumps, EDTA Not Reportable 03/18/22 15:42 Large Platelets Not Reportable 03/18/22 15:42 Giant Platelets Not Reportable 03/18/22 15:42 Platelet Satelliting Not Reportable 03/18/22 15:42 Plt Morphology Comment Not Reportable 03/18/22 15:42 RBC Morphology Normal 03/18/22 15:42 Dimorphic RBCs Not Reportable 03/18/22 15:42 Polychromasia Not Reportable 03/18/22 15:42 Hypochromasia 1+ 03/18/22 15:42 Poikilocytosis Not Reportable 03/18/22 15:42 Anisocytosis Not Reportable 03/18/22 15:42 Microcytosis Not Reportable 03/18/22 15:42 Macrocytosis Not Reportable 03/18/22 15:42 Spherocytes Not Reportable 03/18/22 15:42 Pappenheimer Bodies Not Reportable 03/18/22 15:42 Sickle Cells Not Reportable 03/18/22 15:42 Target Cells Not Reportable 03/18/22 15:42 Tear Drop Cells Not Reportable 03/18/22 15:42 Ovalocytes Not Reportable 03/18/22 15:42 Helmet Cells Not Reportable 03/18/22 15:42 [place] Bodies Not Reportable 03/18/22 15:42 [place] Rings Not Reportable 03/18/22 15:42 Hussein Cells Not Reportable 03/18/22 15:42 Bite Cells Not Reportable 03/18/22 15:42 Crenated Cell Not Reportable 03/18/22 15:42 Elliptocytes Not Reportable 03/18/22 15:42 Acanthocytes (Spur) Not Reportable 03/18/22 15:42 Rouleaux Not Reportable 03/18/22 15:42 Hemoglobin C Crystals Not Reportable 03/18/22 15:42 Schistocytes Not Reportable 03/18/22 15:42 Malaria parasites Not Reportable 03/18/22 15:42 Artemio Bodies Not Reportable 03/18/22 15:42 Hem Pathologist Commnt No 03/18/22 15:42 Sodium 131 mmol/L (137-145) L 03/18/22 15:42 Potassium 6.2 mmol/L (3.6-5.0) H* 03/18/22 15:42 Chloride 97.6 mmol/L (98-107) L 03/18/22 15:42 Carbon Dioxide 13 mmol/L (22-30) L 03/18/22 15:42 Anion Gap 27 mmol/L 03/18/22 15:42 BUN 146 mg/dL (7-17) H 03/18/22 15:42 Creatinine 6.8 mg/dL (0.6-1.2) H 03/18/22 15:42 Estimated GFR 7 ml/min 03/18/22 15:42 BUN/Creatinine Ratio 21 % 03/18/22 15:42 Glucose 216 mg/dL (65-100) H 03/18/22 15:42 POC Glucose 177 mg/dL (70-105) H 03/18/22 17:30 Lactic Acid 2.40 mmol/L (0.7-2.0) H* 03/18/22 15:42 Calcium 8.8 mg/dL (8.4-10.2) 03/18/22 15:42 Total Bilirubin 0.40 mg/dL (0.1-1.2) 03/18/22 15:42 AST 81 units/L (5-40) H 03/18/22 15:42 ALT 76 units/L (7-56) H 03/18/22 15:42 Alkaline Phosphatase 401 units/L (35-129) H 03/18/22 15:42 Troponin T 0.506 ng/mL (0.00-0.029) H* 03/18/22 15:42 NT-Pro-B Natriuret Pep 8680 pg/mL (0-900) H 03/18/22 15:42 Total Protein 6.7 g/dL (6.3-8.2) 03/18/22 15:42 Albumin 1.8 g/dL (3.9-5) L 03/18/22 15:42 Albumin/Globulin Ratio 0.4 % 03/18/22 15:42 Triglycerides 407 mg/dL (2-149) H 03/18/22 15:42 Cholesterol 100 mg/dL (50-199) 03/18/22 15:42 LDL Cholesterol Direct TNR 03/18/22 15:42 HDL Cholesterol 13 mg/dL (40-59) L 03/18/22 15:42 Cholesterol/HDL Ratio 7.69 % 03/18/22 15:42 Short CBC 03/18/22 03/19/22 Range/Units 15:42 04:30 WBC 8.1 13.5 H (4.5-11.0) K/mm3 Hgb 7.4 L 7.6 L (10.1-14.3) gm/dl Hct 22.1 L 23.5 L (30.3-42.9) % Plt Count 376 342 (140-440) K/mm3 BMP 03/18/22 03/18/22 03/19/22 15:42 23:58 04:30 Sodium 131 L 132 L 133 L Potassium 6.2 H* 6.3 H* 5.9 H Chloride 97.6 L 98.5 100.5 Carbon Dioxide 13 L 12 L 12 L BUN 146 H 146 H 150 H Creatinine 6.8 H 7.1 H 7.1 H Glucose 216 H 124 H 157 H Calcium 8.8 9.9 10.1 Cardiac Enzymes 03/18/22 Range/Units 15:42 Troponin T 0.506 H* (0.00-0.029) ng/mL Liver Function 03/18/22 03/19/22 Range/Units 15:42 04:30 Total Bilirubin 0.40 0.60 (0.1-1.2) mg/dL AST 81 H 66 H (5-40) units/L ALT 76 H 60 H (7-56) units/L Alkaline Phosphatase 401 H 347 H (35-129) units/L Albumin 1.8 L 1.7 L (3.9-5) g/dL Urine 03/18/22 Range/Units 23:31 Urine Color Zoey (Yellow) Urine pH 6.0 (5.0-7.0) Ur Specific Breeding 1.013 (1.003-1.030) Urine Protein 100 mg/dl (Negative) mg/dL Urine Glucose (UA) Neg (Negative) mg/dL - Imaging and Cardiology Imaging and Cardiology: Chest x-ray Mild bilateral perihilar interstitial opacities likely interstitial edema Assessment and Plan Assessment and plan: Critical care statement The high probability OF a clinically significant sudden or life-threatening deterioration of the cardiorespiratory system and endocrine system required my full and direct attention, intervention and postoperative management. The aggregate critical care time was 35 minutes. The time is in addition to time spent performing reported procedures but includes the followin: Data review and interpretation 2: Patient assessment and monitoring of vital signs 3: Documentation 4:: Medication orders and management Advance Directives: Yes (Full code) VTE prophylaxis?: Chemical Plan of care discussed with patient/family: Yes - Patient Problems (1) Acute respiratory failure with hypoxia Current Visit: Yes Status: Acute Plan to address problem: Patient 100% nonrebreather We will admit to ICU May need intubation Close monitoring (2) Acute exacerbation of CHF (congestive heart failure) Current Visit: Yes Status: Acute Qualifiers: Heart failure type: combined systolic and diastolic Qualified Code(s): I50.43 - Acute on chronic combined systolic (congestive) and diastolic (congestive) heart failure Plan to address problem: 1 dose of IV Lasix given because of her borderline blood pressure (3) KELSIE (acute kidney injury) Current Visit: Yes Status: Acute Plan to address problem: Baseline creatinine not known. Possible underlying chronic kidney disease Nephrology consulted [employer] [facility] to be decided by nephrology (4) Hyperkalemia Current Visit: Yes Status: Acute Plan to address problem: Treated with IV calcium carbonate insulin/D50 W and Kayexalate (5) Urinary tract infection Current Visit: Yes Status: Acute Qualifiers: Urinary tract infection type: acute cystitis Plan to address problem: On IV Rocephin 1 g every 24 (6) Anemia Current Visit: Yes Status: Acute Qualifiers: Anemia type: unspecified type Qualified Code(s): D64.9 - Anemia, unspecified Plan to address problem: Possibly secondary to underlying kidney disease (7) Elevated brain natriuretic peptide (BNP) level Current Visit: Yes Status: Acute Plan to address problem: BNP is 8680 Consistent with congestive heart failure Echocardiogram for ejection fraction and valve function and wall motion abnormalities (8) DVT prophylaxis Current Visit: Yes Status: Acute Plan to address problem: On heparin and GI prophylaxis
[2022-03-18] MEDS ORDERED: ONDANSETRON 4 MG/2 ML INJ IV PRN (20:16)
[2022-03-18] MEDS ORDERED: MORPHINE 2 MG/1 ML INJ IV PRN (20:16)
[2022-03-18] MEDS ORDERED: ACETAMINOPHEN 325 MG TAB PO PRN (20:16)
[2022-03-18] MEDS ORDERED: CALCIUM GLUCONATE IV ONE (21:00)
[2022-03-18] MEDS ORDERED: SODIUM CHLORIDE 0.9% IV ONE (21:00)
[2022-03-18] MEDS ORDERED: FUROSEMIDE 40 MG/4 ML INJ IV ONE (21:00)
--- NOTE | 2022-03-18 21:57 | Event Note ---
Ordered for stat BMP for the patient for follow-up
[2022-03-18] MEDS: HEPARIN 5,000 UNIT/1 ML VIAL SUB-Q SCH (23:48)
[2022-03-18 23:54] LABS: ABG HCO3 12.3 mmol/L (20.0-26.0); ABG PH 7.451 pH Units (7.350-7.450); ABG PO2 97.7 mm Hg (80.0-90.0)
[2022-03-18] MEDS: SODIUM CHLORIDE 0.9% 1000 ML 1,000 ML IV SCH (23:54)
[2022-03-18 23:55] LABS: Bilirubin,Urine NEG (Negative); Blood,Urine LG (Negative); Color,Urine Amber (Yellow); Mucus,Urine FEW /HPF; Urobilinogen,Urine < 2.0 mg/dL (<2.0)
[2022-03-18 23:55] LABS: ABG Base Excess -10.4 mmol/L (-2.0-3.0); ABG Methemoglobin 0.5 % (0.0-1.5); ABG Oxygen Saturation 97.9 % (95.0-99.0)
[2022-03-18 23:56] LABS: RBC,Urine > 182.0 /HPF (0.0-6.0); WBC,Urine > 182.0 /HPF (0.0-6.0)
[2022-03-18 23:59] LABS: Amphetamine Screen,Urine PRESUMPTIVE NEGATIVE; Benzodiazepines Screen,Urine PRESUMPTIVE NEGATIVE; Cannabinoid Screen,Urine PRESUMPTIVE NEGATIVE; Cocaine Screen,Urine PRESUMPTIVE NEGATIVE; Methadone Screen,Urine PRESUMPTIVE NEGATIVE; Opiate Screen,Urine PRESUMPTIVE NEGATIVE
[2022-03-19 00:57] LABS: Calcium 9.9 mg/dL (8.4-10.2)
[2022-03-19] MEDS ORDERED: INSULIN REGULAR, HUMAN 100 UNITS/1 ML IV STA (02:44)
[2022-03-19] MEDS ORDERED: SODIUM POLYSTYRENE 15 GM/60 ML ORAL LIQD PO STA (02:45)
[2022-03-19] MEDS ORDERED: FUROSEMIDE 40 MG/4 ML INJ IV STA (02:45)
[2022-03-19] MEDS ORDERED: DEXTROSE 50% IN WATER (25GM) 50 ML SYRINGE IV STA (02:46)
[2022-03-19] MEDS ORDERED: CALCIUM GLUCONATE 2,000 MG in SODIUM CHLORIDE 0.9% 100 ML IV STA (02:46)
[2022-03-19] MEDS: CALC GLUCONATE 1GM/NS 100 ML 1 GM/100 ML BAG IV SCH ×2 (03:25→03:35)
[2022-03-19 04:45] LABS: Hematocrit 23.5 % (30.3-42.9); Hemoglobin 7.6 gm/dl (10.1-14.3); Mean Corpuscular HGB Conc 32 % (30-34); Mean Corpuscular Volume 87 fl (79-97); Platelet Count 342 K/mm3 (140-440); Red Cell Distribution Width 15.1 % (13.2-15.2)
[2022-03-19 05:09] LABS: Albumin 1.7 g/dL (3.9-5); Calcium 10.1 mg/dL (8.4-10.2)
[2022-03-19 06:20] LABS: Band Neutrophils # (Manual) 3.4 K/mm3; Basophils % (Manual) 0 % (0.0-1.8); Eosinophils % (Manual) 0 % (0.0-4.3); Hypochromasia 2+; Platelet Estimate Consistent w Auto; Total Cells Counted 100
--- NOTE | 2022-03-19 11:11 | Progress Note ---
<AVELINO ROSARIO - Last Filed: 03/19/22 17:58> Assessment and Plan Assessment and plan: This is 62-year-old female with known past medical history of HTN, CKD, vascular dementia, cerebral atherosclerosis, malnutrition, and debility admitted for acute hypoxic respiratory failure, hyperkalemia, and acute on chronic kidney d isease. Hospital Course to Date: 03/19: Patient remains unresponsive, only grimace to pain. Still on NRB SPO2 at 100%, plan to wean O2 supplementation as tolerated. Hyperkalemia was treated per protocol, repeat BMP 4hrs post treatment, renal function is unchanged. Nephrolo gy on consult. Thorough discussion with patient's daughter with CCM and Nephrology discussing patient's condition and overall prognosis. Patient's daughter opted for AND/DNR and plan for inpatient hospice, possible tomorrow. Assessment and Plan #Acute Respiratory Failure with Hypoxia #Pulmonary Edema - Presented with hypoxia now on NRB, SPO2 at 100% - CXR Chest with mild bilateral perihilar interstitial opacities likely interstitial edema - s/p IV lasix - Continue O2 supplementation wean as tolerated - Aspiration precaution HOB above 30 - Continue SPO2 monitoring for SPO2 goal above 92% #Acute exacerbation of CHF (Congestive Heart Failure) #Elevated brain natriuretic peptide (BNP) level - BNP is 8680 - SB to SR on the monitor, HR 50 to 60s - Imaging consistent with interstitial edema - s/p IV Lasix, poor response only 100c UOP - Cardiology on consult, appreciated recommendations - 2D echo pending - Continue blood pressure monitor per protocol - Maintain MAP above 65 #Acute on Chronic Kidney Injury #Hyperkalemia - Per record patient was received HD on last admit - HD and permacath was removed on 01/29 prior to D/C to SNF for inpatient hospice - High K treated wir Ca gluconate, IV insulin/D50W, Kayexalate - Repeat BMP 4hrs post treatment - Nephrology on consult, appreciated recommendation - Strict intake and output - s/p IV Lasix, poor response only 100c UOP - Avoid nephrotoxic medications; Renally dose medications - Thorough discussion with Nephrology, CCM, and family. Patient family opted for AND/DNR - Plan for possible in patient hospice in the am #Urinary Tract Infection #Leukocytosis #Sacral Decubitus Ulcer - UA consistent with UTI, urine culture pending - Patient remains afebrile, VSS, lactic acidosis probably due to CKD - Will check procal - On empiric IV ABx- Rocephin - Continue to F/U on cult - Trend CBC and lactic - Wound care consulted #Metabolic Encephalopathy #hx of Vascular dementia - Per SNF record, patient is nonverbal - Only grimace to pain - Avoid benzodiazepine to reduce the possibility of delirium - Prn analgesia for pain management - Maintenance of sleep-wake cycle #Dysphagia #Severe protein-calorie malnutrition - PEGTube present - Will resume enteral nutrition - Nutrition consulted #Anemia - Possibly secondary to underlying kidney disease - H&H is stable - Monitor for s/s of any active bleeding - Transfuse for Hgb less than 7 #GI/DVT Prophylaxis - PPI- Pepcid - Heparin SubQ The high probability of a clinically significant, sudden or life threatening deterioration of the [multiple] system(s) required my full and direct attention, intervention and personal management. The aggregate critical care time was [60] minutes. This time is in addition to time spent performing reported procedures but includes the following: [x] Data Review and interpretation [x] Patient assessment and monitoring of vital signs [x] Documentation [x] Medication orders and management Disposition Plan: ICU Total Time Spent with Patient (Minutes): 60 History Interval history: Patient seen and examined at the bedside. Patient is lethargic and contracted, only grimace to pain, not following commands. On a NRB SPO2 at 100%, SB to SR on the monitor, VSS. Hospitalist Physical - Constitutional Vitals: Temp Pulse Resp BP Pulse Ox 97.7 F 96 H 32 H 128/79 100 03/19/22 03:41 03/19/22 05:01 03/19/22 05:01 03/19/22 04:35 03/19/22 05:01 General appearance: Present: no acute distress, cachectic, other (Nonverbal, only grimace to pain) - EENT Eyes: Present: PERRL - Respiratory Respiratory effort: normal Respiratory: bilateral: rhonchi - Cardiovascular Rhythm: regular Heart Sounds: Present: S1 & S2 - Extremities Extremities: no ischemia, pulses intact, pulses symmetrical, abnormal (Bilateral Upper and Lower extremities are contracted) Peripheral Pulses: within normal limits - Abdominal General gastrointestinal: soft, non-distended, normal bowel sounds, other (PEG- Tube present) - Integumentary Integumentary: Present: warm (Multiple pressure Ulcers ), dry - Psychiatric Psychiatric: other (Nonverbal, only grimace to pain) - Neurologic Neurologic: other (Nonverbal, only grimace to pain, does not follow commands) - Allied Health Allied health notes reviewed: nursing HEART Score - HEART Score Risk factors: > 3 risk factors or hx of atherosclerotic disease Troponin: Troponin T 0.506 ng/mL (0.00-0.029) H* 03/18/22 15:42 Troponin: 1-3x normal limit - Critical Actions Critical Actions: 4-6 pts:12-16.6% risk of adverse cardiac event. Should be admitted Results - Labs CBC & Chem 7: 03/19/22 04:30 03/19/22 13:01 Labs: Laboratory Last Values WBC 13.5 K/mm3 (4.5-11.0) H 03/19/22 04:30 RBC 2.70 M/mm3 (3.65-5.03) L 03/19/22 04:30 Hgb 7.6 gm/dl (10.1-14.3) L 03/19/22 04:30 Hct 23.5 % (30.3-42.9) L 03/19/22 04:30 MCV 87 fl (79-97) 03/19/22 04:30 MCH 28 pg (28-32) 03/19/22 04:30 MCHC 32 % (30-34) 03/19/22 04:30 RDW 15.1 % (13.2-15.2) 03/19/22 04:30 Plt Count 342 K/mm3 (140-440) 03/19/22 04:30 Add Manual Diff Complete 03/19/22 04:30 Total Counted 100 03/19/22 04:30 Seg Neutrophils % Electronics Mechanic Apprentice 03/19/22 04:30 Seg Neuts % (Manual) 64.0 % (40.0-70.0) 03/19/22 04:30 Band Neutrophils % 25.0 % 03/19/22 04:30 Lymphocytes % (Manual) 5.0 % (13.4-35.0) L 03/19/22 04:30 Reactive Lymphs % (Man) 0 % 03/19/22 04:30 Monocytes % (Manual) 3.0 % (0.0-7.3) 03/19/22 04:30 Eosinophils % (Manual) 0 % (0.0-4.3) 03/19/22 04:30 Basophils % (Manual) 0 % (0.0-1.8) 03/19/22 04:30 Metamyelocytes % 3.0 % 03/19/22 04:30 Myelocytes % 0 % 03/19/22 04:30 Promyelocytes % 0 % 03/19/22 04:30 Blast Cells % 0 % 03/19/22 04:30 Nucleated RBC % Not Reportable 03/19/22 04:30 Seg Neutrophils # Man 8.6 K/mm3 (1.8-7.7) H 03/19/22 04:30 Band Neutrophils # 3.4 K/mm3 03/19/22 04:30 Lymphocytes # (Manual) 0.7 K/mm3 (1.2-5.4) L 03/19/22 04:30 Abs React Lymphs (Man) 0.0 K/mm3 03/19/22 04:30 Monocytes # (Manual) 0.4 K/mm3 (0.0-0.8) 03/19/22 04:30 Eosinophils # (Manual) 0.0 K/mm3 (0.0-0.4) 03/19/22 04:30 Basophils # (Manual) 0.0 K/mm3 (0.0-0.1) 03/19/22 04:30 Metamyelocytes # 0.4 K/mm3 03/19/22 04:30 Myelocytes # 0.0 K/mm3 03/19/22 04:30 Promyelocytes # 0.0 K/mm3 03/19/22 04:30 Blast Cells # 0.0 K/mm3 03/19/22 04:30 WBC Morphology Not Reportable 03/19/22 04:30 Hypersegmented Neuts Not Reportable 03/19/22 04:30 Hyposegmented Neuts Not Reportable 03/19/22 04:30 Hypogranular Neuts Not Reportable 03/19/22 04:30 Smudge Cells Not Reportable 03/19/22 04:30 Toxic Granulation Not Reportable 03/19/22 04:30 Toxic Vacuolation Not Reportable 03/19/22 04:30 Dohle Bodies Not Reportable 03/19/22 04:30 Pelger-Huet Anomaly Not Reportable 03/19/22 04:30 Lesley Rods Not Reportable 03/19/22 04:30 Platelet Estimate Consistent w auto 03/19/22 04:30 Clumped Platelets Not Reportable 03/19/22 04:30 Plt Clumps, EDTA Not Reportable 03/19/22 04:30 Large Platelets Not Reportable 03/19/22 04:30 Giant Platelets Not Reportable 03/19/22 04:30 Platelet Satelliting Not Reportable 03/19/22 04:30 Plt Morphology Comment Not Reportable 03/19/22 04:30 RBC Morphology Not Reportable 03/19/22 04:30 Dimorphic RBCs Not Reportable 03/19/22 04:30 Polychromasia Not Reportable 03/19/22 04:30 Hypochromasia 2+ 03/19/22 04:30 Poikilocytosis Not Reportable 03/19/22 04:30 Anisocytosis Not Reportable 03/19/22 04:30 Microcytosis 1+ 03/19/22 04:30 Macrocytosis Not Reportable 03/19/22 04:30 Spherocytes Not Reportable 03/19/22 04:30 Pappenheimer Bodies Not Reportable 03/19/22 04:30 Sickle Cells Not Reportable 03/19/22 04:30 Target Cells Not Reportable 03/19/22 04:30 Tear Drop Cells Not Reportable 03/19/22 04:30 Ovalocytes Not Reportable 03/19/22 04:30 Helmet Cells Not Reportable 03/19/22 04:30 Hammonds-Ken Caryl Bodies Not Reportable 03/19/22 04:30 [place] Rings Not Reportable 03/19/22 04:30 [place] Cells Not Reportable 03/19/22 04:30 Bite Cells Not Reportable 03/19/22 04:30 Crenated Cell Not Reportable 03/19/22 04:30 Elliptocytes Not Reportable 03/19/22 04:30 Acanthocytes (Spur) Not Reportable 03/19/22 04:30 Rouleaux Not Reportable 03/19/22 04:30 Hemoglobin C Crystals Not Reportable 03/19/22 04:30 Schistocytes Not Reportable 03/19/22 04:30 Malaria parasites Not Reportable 03/19/22 04:30 Artemio Bodies Not Reportable 03/19/22 04:30 Hem Pathologist Commnt No 03/19/22 04:30 ABG pH 7.451 pH Units (7.350-7.450) H 03/18/22 22:02 ABG pCO2 18.0 mm Hg 03/18/22 22:02 ABG pO2 97.7 mm Hg (80.0-90.0) H 03/18/22 22:02 ABG HCO3 12.3 mmol/L (20.0-26.0) L 03/18/22 22:02 ABG O2 Saturation 97.9 % (95.0-99.0) 03/18/22 22:02 ABG Base Excess -10.4 mmol/L (-2.0-3.0) L 03/18/22 22:02 ABG Hemoglobin 7.3 gm/dl (12.0-16.0) L 03/18/22 22:02 ABG Carboxyhemoglobin 1.6 % (0.0-5.0) 03/18/22 22:02 ABG Methemoglobin 0.5 % (0.0-1.5) 03/18/22 22:02 Oxyhemoglobin 96.0 % (95.0-99.0) 03/18/22 22:02 FiO2 100 % 03/18/22 22:02 Sodium 133 mmol/L (137-145) L 03/19/22 04:30 Potassium 5.9 mmol/L (3.6-5.0) H 03/19/22 04:30 Chloride 100.5 mmol/L (98-107) 03/19/22 04:30 Carbon Dioxide 12 mmol/L (22-30) L 03/19/22 04:30 Anion Gap 26 mmol/L 03/19/22 04:30 BUN 150 mg/dL (7-17) H 03/19/22 04:30 Creatinine 7.1 mg/dL (0.6-1.2) H 03/19/22 04:30 Estimated GFR 7 ml/min 03/19/22 04:30 BUN/Creatinine Ratio 21 % 03/19/22 04:30 Glucose 157 mg/dL (65-100) H 03/19/22 04:30 POC Glucose 105 mg/dL (70-105) 03/19/22 03:23 Lactic Acid 2.90 mmol/L (0.7-2.0) H* 03/19/22 04:30 Calcium 10.1 mg/dL (8.4-10.2) 03/19/22 04:30 Total Bilirubin 0.60 mg/dL (0.1-1.2) 03/19/22 04:30 AST 66 units/L (5-40) H 03/19/22 04:30 ALT 60 units/L (7-56) H 03/19/22 04:30 Alkaline Phosphatase 347 units/L (35-129) H 03/19/22 04:30 Troponin T 0.506 ng/mL (0.00-0.029) H* 03/18/22 15:42 NT-Pro-B Natriuret Pep 8680 pg/mL (0-900) H 03/18/22 15:42 Total Protein 6.4 g/dL (6.3-8.2) 03/19/22 04:30 Albumin 1.7 g/dL (3.9-5) L 03/19/22 04:30 Albumin/Globulin Ratio 0.4 % 03/19/22 04:30 Triglycerides 407 mg/dL (2-149) H 03/18/22 15:42 Cholesterol 100 mg/dL (50-199) 03/18/22 15:42 LDL Cholesterol Direct TNR 03/18/22 15:42 HDL Cholesterol 13 mg/dL (40-59) L 03/18/22 15:42 Cholesterol/HDL Ratio 7.69 % 03/18/22 15:42 Urine Color Zoey (Yellow) 03/18/22 23:31 Urine Turbidity Turbid (Clear) 03/18/22 23: Urine pH 6.0 (5.0-7.0) 03/18/22 23:31 Ur Specific [place] 1.013 (1.003-1.030) 03/18/22 23:31 Urine Protein 100 mg/dl mg/dL (Negative) 03/18/22 23:31 Urine Glucose (UA) Neg mg/dL (Negative) 03/18/22 23:31 Urine Ketones Neg mg/dL (Negative) 03/18/22 23:31 Urine Blood Lg (Negative) 03/18/22 23: Urine Nitrite Neg (Negative) 03/18/22 23: Urine Bilirubin Neg (Negative) 03/18/22 23:31 Urine Urobilinogen < 2.0 mg/dL (<2.0) 03/18/22 23:31 Ur Leukocyte Esterase Lg (Negative) 03/18/22 23:31 Urine WBC (Auto) > 182.0 /HPF (0.0-6.0) H 03/18/22 23:31 Urine RBC (Auto) > 182.0 /HPF (0.0-6.0) 03/18/22 23:31 U Epithel Cells (Auto) 3.0 /HPF (0-13.0) 03/18/22 23:31 Urine WBC Clumps 2+ /HPF 03/18/22 23:31 Urine Mucus Few /HPF 03/18/22 23:31 Urine Opiates Screen Presumptive negative 03/18/22 23:31 Urine Methadone Screen Presumptive negative 03/18/22 23:31 Ur Barbiturates Screen Presumptive negative 03/18/22 23:31 Ur Phencyclidine Scrn Presumptive negative 03/18/22 23:31 Ur Amphetamines Screen Presumptive negative 03/18/22 23:31 U Benzodiazepines Scrn Presumptive negative 03/18/22 23:31 Urine Cocaine Screen Presumptive negative 03/18/22 23:31 U Marijuana (THC) Screen Presumptive negative 03/18/22 23:31 Drugs of Abuse Note Disclamer 03/18/22 23:31 Samuel/IV: Voiding Method Indwelling Catheter Active Medications - Current Medications Current Medications: Generic Name Dose Route Start Last Admin Trade Name Freq PRN Reason Stop Dose Admin Acetaminophen 650 mg 03/18/22 20:16 Acetaminophen 325 Mg Tab PO Q4H PRN Pain MILD(1-3)/Fever >100.5/RILEY Heparin Sodium (Porcine) 5,000 unit 03/18/22 22:00 03/18/22 23:48 Heparin 5,000 Unit/1 Ml Vial SUB-Q 5,000 unit Q12HR JARROD Administration Sodium Chloride 1,000 mls @ 42 mls/hr 03/18/22 20:30 03/18/22 23:54 Nacl 0.9% 1000 Ml IV 42 mls/hr DIRECT JARROD Administration Ceftriaxone Sodium 1 gm in 50 mls @ 100 mls/hr 03/19/22 08:00 Rocephin/Ns 1 Gm/50 Ml IV Q24H JARROD Protocol Morphine Sulfate 2 mg 03/18/22 20:16 Morphine 2 Mg/1 Ml Inj IV Q4H PRN Pain, Moderate (4-6) Ondansetron HCl 4 mg 03/18/22 20:16 Ondansetron 4 Mg/2 Ml Inj IV Q8H PRN Nausea And Vomiting Sodium Chloride 10 ml 03/18/22 22:00 03/18/22 23:47 Sodium Chloride 0.9% 10 Ml Flush Syringe IV 10 ml BID JARROD Administration Sodium Chloride 10 ml 03/18/22 20:16 Sodium Chloride 0.9% 10 Ml Flush Syringe IV PRN PRN LINE FLUSH <BALDEV BONNER - Last Filed: 03/20/22 07:21> Assessment and Plan Assessment and plan: I saw and evaluated the patient. I agree with the findings and the plan of care as documented in the Nurse Practitioner's~note, with the following corrections and additions. Advance care planning 35 MINS Family opted for DNR Hospitalist Physical - Constitutional Vitals: Temp Pulse Resp BP Pulse Ox 96.8 F L 107 H 32 H 84/54 100 03/20/22 03:04 03/20/22 05:16 03/20/22 05:16 03/20/22 05:16 03/20/22 05:16 HEART Score - HEART Score Troponin: Troponin T 0.506 ng/mL (0.00-0.029) H* 03/18/22 15:42 Results - Labs CBC & Chem 7: 03/19/22 04:30 03/19/22 20:36 Labs: Laboratory Last Values WBC 13.5 K/mm3 (4.5-11.0) H 03/19/22 04:30 RBC 2.70 M/mm3 (3.65-5.03) L 03/19/22 04:30 Hgb 7.6 gm/dl (10.1-14.3) L 03/19/22 04:30 Hct 23.5 % (30.3-42.9) L 03/19/22 04:30 MCV 87 fl (79-97) 03/19/22 04:30 MCH 28 pg (28-32) 03/19/22 04:30 MCHC 32 % (30-34) 03/19/22 04:30 RDW 15.1 % (13.2-15.2) 03/19/22 04:30 Plt Count 342 K/mm3 (140-440) 03/19/22 04:30 Add Manual Diff Complete 03/19/22 04:30 Total Counted 100 03/19/22 04:30 Seg Neutrophils % Electronics Mechanic Apprentice 03/19/22 04:30 Seg Neuts % (Manual) 64.0 % (40.0-70.0) 03/19/22 04:30 Band Neutrophils % 25.0 % 03/19/22 04:30 Lymphocytes % (Manual) 5.0 % (13.4-35.0) L 03/19/22 04:30 Reactive Lymphs % (Man) 0 % 03/19/22 04:30 Monocytes % (Manual) 3.0 % (0.0-7.3) 03/19/22 04:30 Eosinophils % (Manual) 0 % (0.0-4.3) 03/19/22 04:30 Basophils % (Manual) 0 % (0.0-1.8) 03/19/22 04:30 Metamyelocytes % 3.0 % 03/19/22 04:30 Myelocytes % 0 % 03/19/22 04:30 Promyelocytes % 0 % 03/19/22 04:30 Blast Cells % 0 % 03/19/22 04:30 Nucleated RBC % Not Reportable 03/19/22 04:30 Seg Neutrophils # Man 8.6 K/mm3 (1.8-7.7) H 03/19/22 04:30 Band Neutrophils # 3.4 K/mm3 03/19/22 04:30 Lymphocytes # (Manual) 0.7 K/mm3 (1.2-5.4) L 03/19/22 04:30 Abs React Lymphs (Man) 0.0 K/mm3 03/19/22 04:30 Monocytes # (Manual) 0.4 K/mm3 (0.0-0.8) 03/19/22 04:30 Eosinophils # (Manual) 0.0 K/mm3 (0.0-0.4) 03/19/22 04:30 Basophils # (Manual) 0.0 K/mm3 (0.0-0.1) 03/19/22 04:30 Metamyelocytes # 0.4 K/mm3 03/19/22 04:30 Myelocytes # 0.0 K/mm3 03/19/22 04:30 Promyelocytes # 0.0 K/mm3 03/19/22 04:30 Blast Cells # 0.0 K/mm3 03/19/22 04:30 WBC Morphology Not Reportable 03/19/22 04:30 Hypersegmented Neuts Not Reportable 03/19/22 04:30 Hyposegmented Neuts Not Reportable 03/19/22 04:30 Hypogranular Neuts Not Reportable 03/19/22 04:30 Smudge Cells Not Reportable 03/19/22 04:30 Toxic Granulation Not Reportable 03/19/22 04:30 Toxic Vacuolation Not Reportable 03/19/22 04:30 Dohle Bodies Not Reportable 03/19/22 04:30 Pelger-Huet Anomaly Not Reportable 03/19/22 04:30 Lesley Rods Not Reportable 03/19/22 04:30 Platelet Estimate Consistent w auto 03/19/22 04:30 Clumped Platelets Not Reportable 03/19/22 04:30 Plt Clumps, EDTA Not Reportable 03/19/22 04:30 Large Platelets Not Reportable 03/19/22 04:30 Giant Platelets Not Reportable 03/19/22 04:30 Platelet Satelliting Not Reportable 03/19/22 04:30 Plt Morphology Comment Not Reportable 03/19/22 04:30 RBC Morphology Not Reportable 03/19/22 04:30 Dimorphic RBCs Not Reportable 03/19/22 04:30 Polychromasia Not Reportable 03/19/22 04:30 Hypochromasia 2+ 03/19/22 04:30 Poikilocytosis Not Reportable 03/19/22 04:30 Anisocytosis Not Reportable 03/19/22 04:30 Microcytosis 1+ 03/19/22 04:30 Macrocytosis Not Reportable 03/19/22 04:30 Spherocytes Not Reportable 03/19/22 04:30 Pappenheimer Bodies Not Reportable 03/19/22 04:30 Sickle Cells Not Reportable 03/19/22 04:30 Target Cells Not Reportable 03/19/22 04:30 Tear Drop Cells Not Reportable 03/19/22 04:30 Ovalocytes Not Reportable 03/19/22 04:30 Helmet Cells Not Reportable 03/19/22 04:30 Hammonds-Ken Caryl Bodies Not Reportable 03/19/22 04:30 [place] Rings Not Reportable 03/19/22 04:30 [place] Cells Not Reportable 03/19/22 04:30 Bite Cells Not Reportable 03/19/22 04:30 Crenated Cell Not Reportable 03/19/22 04:30 Elliptocytes Not Reportable 03/19/22 04:30 Acanthocytes (Spur) Not Reportable 03/19/22 04:30 Rouleaux Not Reportable 03/19/22 04:30 Hemoglobin C Crystals Not Reportable 03/19/22 04:30 Schistocytes Not Reportable 03/19/22 04:30 Malaria parasites Not Reportable 03/19/22 04:30 Artemio Bodies Not Reportable 03/19/22 04:30 Hem Pathologist Commnt No 03/19/22 04:30 ABG pH 7.451 pH Units (7.350-7.450) H 03/18/22 22:02 ABG pCO2 18.0 mm Hg 03/18/22 22:02 ABG pO2 97.7 mm Hg (80.0-90.0) H 03/18/22 22:02 ABG HCO3 12.3 mmol/L (20.0-26.0) L 03/18/22 22:02 ABG O2 Saturation 97.9 % (95.0-99.0) 03/18/22 22:02 ABG Base Excess -10.4 mmol/L (-2.0-3.0) L 03/18/22 22:02 ABG Hemoglobin 7.3 gm/dl (12.0-16.0) L 03/18/22 22:02 ABG Carboxyhemoglobin 1.6 % (0.0-5.0) 03/18/22 22:02 ABG Methemoglobin 0.5 % (0.0-1.5) 03/18/22 22:02 Oxyhemoglobin 96.0 % (95.0-99.0) 03/18/22 22:02 FiO2 100 % 03/18/22 22:02 Sodium 137 mmol/L (137-145) 03/19/22 20:36 Potassium 6.0 mmol/L (3.6-5.0) H 03/19/22 20:36 Chloride 105.0 mmol/L (98-107) 03/19/22 20:36 Carbon Dioxide 11 mmol/L (22-30) L 03/19/22 20:36 Anion Gap 27 mmol/L 03/19/22 20:36 BUN 156 mg/dL (7-17) H 03/19/22 20:36 Creatinine 7.2 mg/dL (0.6-1.2) H 03/19/22 20:36 Estimated GFR 7 ml/min 03/19/22 20:36 BUN/Creatinine Ratio 22 % 03/19/22 20:36 Glucose 98 mg/dL (65-100) 03/19/22 20:36 POC Glucose 106 mg/dL (70-105) H 03/20/22 05:10 Lactic Acid 2.90 mmol/L (0.7-2.0) H* 03/19/22 04:30 Calcium 11.0 mg/dL (8.4-10.2) H 03/19/22 20:36 Total Bilirubin 0.60 mg/dL (0.1-1.2) 03/19/22 04:30 AST 66 units/L (5-40) H 03/19/22 04:30 ALT 60 units/L (7-56) H 03/19/22 04:30 Alkaline Phosphatase 347 units/L (35-129) H 03/19/22 04:30 Troponin T 0.506 ng/mL (0.00-0.029) H* 03/18/22 15:42 NT-Pro-B Natriuret Pep 8680 pg/mL (0-900) H 03/18/22 15:42 Total Protein 6.4 g/dL (6.3-8.2) 03/19/22 04:30 Albumin 1.7 g/dL (3.9-5) L 03/19/22 04:30 Albumin/Globulin Ratio 0.4 % 03/19/22 04:30 Triglycerides 407 mg/dL (2-149) H 03/18/22 15:42 Cholesterol 100 mg/dL (50-199) 03/18/22 15:42 LDL Cholesterol Direct TNR 03/18/22 15:42 HDL Cholesterol 13 mg/dL (40-59) L 03/18/22 15:42 Cholesterol/HDL Ratio 7.69 % 03/18/22 15:42 Urine Color Zoey (Yellow) 03/19/22 16:47 Urine Turbidity Cloudy (Clear) 03/19/22 16:47 Urine pH 5.0 (5.0-7.0) 03/19/22 16:47 Ur Specific [place] 1.013 (1.003-1.030) 03/19/22 16:47 Urine Protein 100 mg/dl mg/dL (Negative) 03/19/22 16:47 Urine Glucose (UA) Neg mg/dL (Negative) 03/19/22 16:47 Urine Ketones Neg mg/dL (Negative) 03/19/22 16:47 Urine Blood Mod (Negative) 03/19/22 16:47 Urine Nitrite Neg (Negative) 03/19/22 16:47 Urine Bilirubin Neg (Negative) 03/19/22 16:47 Urine Urobilinogen < 2.0 mg/dL (<2.0) 03/19/22 16:47 Ur Leukocyte Esterase Lg (Negative) 03/19/22 16:47 Urine WBC (Auto) > 182.0 /HPF (0.0-6.0) H 03/19/22 16:47 Urine RBC (Auto) > 182.0 /HPF (0.0-6.0) 03/19/22 16:47 U Epithel Cells (Auto) 2.0 /HPF (0-13.0) 03/19/22 16:47 Urine Bacteria (Auto) 2+ /HPF (Negative) 03/19/22 16:47 Urine WBC Clumps 3+ /HPF 03/19/22 16:47 Urine Mucus 1+ /HPF 03/19/22 16:47 Urine Yeast (Budding) 3+ /HPF 03/19/22 16:47 Urine Sperm 1+ /HPF ([employer]) 03/19/22 16:47 Urine Opiates Screen Presumptive negative 03/18/22 23:31 Urine Methadone Screen Presumptive negative 03/18/22 23:31 Ur Barbiturates Screen Presumptive negative 03/18/22 23:31 Ur Phencyclidine Scrn Presumptive negative 03/18/22 23:31 Ur Amphetamines Screen Presumptive negative 03/18/22 23:31 U Benzodiazepines Scrn Presumptive negative 03/18/22 23:31 Urine Cocaine Screen Presumptive negative 03/18/22 23:31 U Marijuana (THC) Screen Presumptive negative 03/18/22 23:31 Drugs of Abuse Note Disclamer 03/18/22 23:31 Samuel/IV: Voiding Method Indwelling Catheter Active Medications - Current Medications Current Medications: Generic Name Dose Route Start Last Admin Trade Name Freq PRN Reason Stop Dose Admin Acetaminophen 650 mg 03/18/22 20:16 Acetaminophen 325 Mg Tab PO Q4H PRN Pain MILD(1-3)/Fever >100.5/RILEY Heparin Sodium (Porcine) 5,000 unit 03/18/22 22:00 03/19/22 21:41 Heparin 5,000 Unit/1 Ml Vial SUB-Q Not Given Q12HR JARROD Sodium Chloride 1,000 mls @ 42 mls/hr 03/18/22 20:30 03/19/22 21:52 Nacl 0.9% 1000 Ml IV 42 mls/hr DIRECT JARROD Administration Ceftriaxone Sodium 1 gm in 50 mls @ 100 mls/hr 03/19/22 08:00 03/19/22 15:40 Rocephin/Ns 1 Gm/50 Ml IV 100 mls/hr Q24H JARROD Administration Protocol Morphine Sulfate 2 mg 03/18/22 20:16 03/19/22 21:51 Morphine 2 Mg/1 Ml Inj IV 2 mg Q4H PRN Administration Pain, Moderate (4-6) Ondansetron HCl 4 mg 03/18/22 20:16 Ondansetron 4 Mg/2 Ml Inj IV Q8H PRN Nausea And Vomiting Sodium Chloride 10 ml 03/18/22 22:00 03/19/22 21:40 Sodium Chloride 0.9% 10 Ml Flush Syringe IV 10 ml BID JARROD Administration Sodium Chloride 10 ml 03/18/22 20:16 Sodium Chloride 0.9% 10 Ml Flush Syringe IV PRN PRN LINE FLUSH Nutrition/Malnutrition Assess - Dietary Evaluation Nutrition/Malnutrition Findings: Nutrition Notes Start: 03/19/22 12:33 Freq: Status: Active Protocol: Document 03/19/22 12:33 SULEMA (Rec: 03/19/22 12:43 SULEMA [id number]) Nutrition Notes Need for Assessment 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 Pt also screened for receiving NTR support, skin risk (Goyo score: 9) and chewing difficulty. Burn Absent Trauma Absent Difficulty In Swallowing Skin Integrity/Comment Multiple pressure ulcers #1 Nutrition Diagnosis Swallowing difficulty Etiology LUIS E As Evidenced by Signs and Symptoms pt requires EN support to meet nutrient needs Is patient on ventilator? No Is Patient Ambulatory and/or Out of Bed No REE-([facility]-confined to bed) 1111.404 Kcal/Kg value to use for calculation 35 Approximate Energy Requirements Using 1575 kcal/Kg Calculation Used for Recommendations Kcal/kg Additional Notes Pro needs 0.8-1g/k-45g/ day (to preserve renal function) Fluid needs per MD Nutrition Intervention Nutrition Support: Nepro at 25ml/hr with 100ml water flush q4h. Kcal 1,080 Protein (gm) 49 Carbohydrates (gm) 97 Fat (gm) 58 Fluid (mL) 436 Fiber (gm) 8 Goal #1 TF tolerance Goal #2 TF to meet 80-100% energy and pro needs Goal #3 Wt maintenance and/or gain Anticipated Discharge Needs: Continue TF if necessary Follow-Up By: 03/22/22 Additional Comments F/U: new TF, resp status, renal function
--- NOTE | 2022-03-19 12:13 | Consultation ---
History of Present Illness Consult date: 03/19/22 Requesting physician: ADRIANO TAVAREZ Reason for consult: other (Acute Hypoxemic Respiratory Failure; KELSIE on CKD) History of present illness: PULMONARY/CCM CONSULT NOTE (Full dictation # [id number]) Please see dictated notes for full details Medications and Allergies Allergies Allergy/AdvReac Type Severity Reaction Status Date / Time No Known Allergies Allergy Verified 01/09/22 11:43 Home Medications Medication Instructions Recorded Confirmed Last Taken Type amLODIPine 10 mg PO QDAY #30 tablet 03/09/21 01/09/22 Unknown Rx carvediloL [Coreg] 3.125 mg PO BID #60 tablet 03/09/21 01/09/22 Unknown Rx Cholecalciferol Vit D3 [Vitamin D3 1,000 unit PO DAILY #30 tablet 01/16/22 Unknown Rx 1,000 UNIT TAB] Losartan [Cozaar] 50 mg PO QDAY #30 tablet 01/18/22 Unknown Rx NIFEdipine XL [Procardia Xl] 30 mg PO QDAY #30 tablet 01/18/22 Unknown Rx amLODIPine 10 mg PO QDAY #30 tablet 01/30/22 Unknown Rx carvediloL [Coreg] 6.25 mg PO BID #60 tablet 01/30/22 Unknown Rx Active Meds: Active Medications Acetaminophen (Acetaminophen 325 Mg Tab) 650 mg PO Q4H PRN PRN Reason: Pain MILD(1-3)/Fever >100.5/RILEY Heparin Sodium (Porcine) (Heparin 5,000 Unit/1 Ml Vial) 5,000 unit SUB-Q Q12HR [facility] Last Admin: 03/18/22 23:48 Dose: 5,000 unit Sodium Chloride (Nacl 0.9% 1000 Ml) 1,000 mls @ 42 mls/hr IV DIRECT [facility] Last Admin: 03/18/22 23:54 Dose: 42 mls/hr Ceftriaxone Sodium (Rocephin/Ns 1 Gm/50 Ml) 1 gm in 50 mls @ 100 mls/hr IV Q24H [facility]; Protocol Morphine Sulfate (Morphine 2 Mg/1 Ml Inj) 2 mg IV Q4H PRN PRN Reason: Pain, Moderate (4-6) Ondansetron HCl (Ondansetron 4 Mg/2 Ml Inj) 4 mg IV Q8H PRN PRN Reason: Nausea And Vomiting Sodium Chloride (Sodium Chloride 0.9% 10 Ml Flush Syringe) 10 ml IV BID [facility] Last Admin: 03/18/22 23:47 Dose: 10 ml Sodium Chloride (Sodium Chloride 0.9% 10 Ml Flush Syringe) 10 ml IV PRN PRN PRN Reason: LINE FLUSH Physical Examination Vital signs: Vital Signs Temp Pulse Resp BP Pulse Ox 98.5 F 103 H 18 106/66 97 03/18/22 13:51 03/18/22 13:51 03/18/22 13:51 03/18/22 13:51 03/18/22 13:51 Results - Laboratory Findings CBC and BMP: 03/19/22 04:30 03/19/22 04:30 ABG ABG pH 7.451 pH Units (7.350-7.450) H 03/18/22 22:02 ABG pCO2 18.0 mm Hg 03/18/22 22:02 ABG pO2 97.7 mm Hg (80.0-90.0) H 03/18/22 22:02 ABG O2 Saturation 97.9 % (95.0-99.0) 03/18/22 22:02 Abnormal lab findings: Abnormal Labs 03/18/22 03/18/22 03/18/22 15:42 15:42 15:42 WBC RBC 2.55 L Hgb 7.4 L Hct 22.1 L Lymphocytes % (Manual) 4.0 L Seg Neutrophils # Man Lymphocytes # (Manual) 0.3 L ABG pH ABG pO2 ABG HCO3 ABG Base Excess ABG Hemoglobin Sodium 131 L Potassium 6.2 H* Chloride 97.6 L Carbon Dioxide 13 L BUN 146 H Creatinine 6.8 H Glucose 216 H POC Glucose Lactic Acid 2.40 H* AST 81 H ALT 76 H Alkaline Phosphatase 401 H Troponin T NT-Pro-B Natriuret Pep Albumin 1.8 L Triglycerides HDL Cholesterol Urine WBC (Auto) 03/18/22 03/18/22 03/18/22 15:42 15:42 17:30 WBC RBC Hgb Hct Lymphocytes % (Manual) Seg Neutrophils # Man Lymphocytes # (Manual) ABG pH ABG pO2 ABG HCO3 ABG Base Excess ABG Hemoglobin Sodium Potassium Chloride Carbon Dioxide BUN Creatinine Glucose POC Glucose 177 H Lactic Acid AST ALT Alkaline Phosphatase Troponin T 0.506 H* NT-Pro-B Natriuret Pep 8680 H Albumin Triglycerides 407 H HDL Cholesterol 13 L Urine WBC (Auto) 03/18/22 03/18/22 03/18/22 22:02 23:23 23:31 WBC RBC Hgb Hct Lymphocytes % (Manual) Seg Neutrophils # Man Lymphocytes # (Manual) ABG pH 7.451 H ABG pO2 97.7 H ABG HCO3 12.3 L ABG Base Excess -10.4 L ABG Hemoglobin 7.3 L Sodium Potassium Chloride Carbon Dioxide BUN Creatinine Glucose POC Glucose 116 H Lactic Acid AST ALT Alkaline Phosphatase Troponin T NT-Pro-B Natriuret Pep Albumin Triglycerides HDL Cholesterol Urine WBC (Auto) > 182.0 H 03/18/22 03/18/22 03/19/22 23:58 23:58 04:30 WBC 13.5 H RBC 2.70 L Hgb 7.6 L Hct 23.5 L Lymphocytes % (Manual) 5.0 L Seg Neutrophils # Man 8.6 H Lymphocytes # (Manual) 0.7 L ABG pH ABG pO2 ABG HCO3 ABG Base Excess ABG Hemoglobin Sodium 132 L Potassium 6.3 H* Chloride Carbon Dioxide 12 L BUN 146 H Creatinine 7.1 H Glucose 124 H POC Glucose Lactic Acid 2.50 H* AST ALT Alkaline Phosphatase Troponin T NT-Pro-B Natriuret Pep Albumin Triglycerides HDL Cholesterol Urine WBC (Auto) 03/19/22 03/19/22 04:30 04:30 WBC RBC Hgb Hct Lymphocytes % (Manual) Seg Neutrophils # Man Lymphocytes # (Manual) ABG pH ABG pO2 ABG HCO3 ABG Base Excess ABG Hemoglobin Sodium 133 L Potassium 5.9 H Chloride Carbon Dioxide 12 L BUN 150 H Creatinine 7.1 H Glucose 157 H POC Glucose Lactic Acid 2.90 H* AST 66 H ALT 60 H Alkaline Phosphatase 347 H Troponin T NT-Pro-B Natriuret Pep Albumin 1.7 L Triglycerides HDL Cholesterol Urine WBC (Auto)
--- NOTE | 2022-03-19 12:44 | Event Note ---
Date: 03/19/22 I spoke with her daughter Bo Galvan @ [phone] who states that her mothers CODE status was "DNR" and she also expressed a desire to speak with hospice care
--- NOTE | 2022-03-19 13:09 | Consultation ---
History of Present Illness Consult date: 03/19/22 Consult reason: congestive heart failure History of present illness: The patient is a 62-year-old woman with chronic kidney disease, previously on dialysis for a limited period. No documented prior cardiac history. She is admitted to the hospital at this time with complaints of increasing shortness of breath and fatigue. She is admitted with a diagnosis of congestive heart failure, prompting a cardiac consultation. Work-up so far in the hospital shows multiple severe laboratory abnormalities including severe anemia with a hematocrit of 22, hyperkalemia of 6.2, and acute kidney injury with a creatinine of 6.8. The creatinine is significantly elevated from her previous baseline when her dialysis was discontinued. EKG was a sinus tachycardia at 112, otherwise essentially normal ECG. The single troponin level measured was elevated at 0.5. Chest x-ray was normal-sized cardiac silhouette with borderline interstitial lung changes. Currently, patient is in the ICU, cachectic, chronically ill-appearing, lethargic, but breathing comfortably on facemask oxygen. Patient is not communicative. Current sinus rate is 88, blood pressure is 112 systolic. Past History Past Medical History: renal failure Medications and Allergies Allergies Allergy/AdvReac Type Severity Reaction Status Date / Time No Known Allergies Allergy Verified 01/09/22 11:43 Home Medications Medication Instructions Recorded Confirmed Last Taken Type amLODIPine 10 mg PO QDAY #30 tablet 03/09/21 01/09/22 Unknown Rx carvediloL [Coreg] 3.125 mg PO BID #60 tablet 03/09/21 01/09/22 Unknown Rx Cholecalciferol Vit D3 [Vitamin D3 1,000 unit PO DAILY #30 tablet 01/16/22 Unknown Rx 1,000 UNIT TAB] Losartan [Cozaar] 50 mg PO QDAY #30 tablet 01/18/22 Unknown Rx NIFEdipine XL [Procardia Xl] 30 mg PO QDAY #30 tablet 01/18/22 Unknown Rx amLODIPine 10 mg PO QDAY #30 tablet 01/30/22 Unknown Rx carvediloL [Coreg] 6.25 mg PO BID #60 tablet 01/30/22 Unknown Rx Active Meds: Active Medications Acetaminophen (Acetaminophen 325 Mg Tab) 650 mg PO Q4H PRN PRN Reason: Pain MILD(1-3)/Fever >100.5/RILEY Heparin Sodium (Porcine) (Heparin 5,000 Unit/1 Ml Vial) 5,000 unit SUB-Q Q12HR [facility] Last Admin: 03/18/22 23:48 Dose: 5,000 unit Sodium Chloride (Nacl 0.9% 1000 Ml) 1,000 mls @ 42 mls/hr IV DIRECT [facility] Last Admin: 03/18/22 23:54 Dose: 42 mls/hr Ceftriaxone Sodium (Rocephin/Ns 1 Gm/50 Ml) 1 gm in 50 mls @ 100 mls/hr IV Q24H [facility]; Protocol Morphine Sulfate (Morphine 2 Mg/1 Ml Inj) 2 mg IV Q4H PRN PRN Reason: Pain, Moderate (4-6) Ondansetron HCl (Ondansetron 4 Mg/2 Ml Inj) 4 mg IV Q8H PRN PRN Reason: Nausea And Vomiting Sodium Chloride (Sodium Chloride 0.9% 10 Ml Flush Syringe) 10 ml IV BID [facility] Last Admin: 03/18/22 23:47 Dose: 10 ml Sodium Chloride (Sodium Chloride 0.9% 10 Ml Flush Syringe) 10 ml IV PRN PRN PRN Reason: LINE FLUSH Review of Systems ROS unobtainable: due to mental status Physical Examination Vital Signs Temp Pulse Resp BP Pulse Ox 98.5 F 103 H 18 106/66 97 03/18/22 13:51 03/18/22 13:51 03/18/22 13:51 03/18/22 13:51 03/18/22 13:51 General appearance: no acute distress, cachectic, other (Chronically ill- appearing, very lethargic) HEENT: Positive: PERRL Neck: Positive: neck supple Cardiac: Positive: Reg Rate and Rhythm Lungs: Positive: Decreased Breath Sounds Neuro: Positive: Weakness (Generalized lethargy) Abdomen: Positive: Soft Female genitourinary: deferred Skin: Positive: Clear Extremities: Absent: edema Results 03/19/22 04:30 03/19/22 04:30 Cardiac Enzymes 03/18/22 03/19/22 Range/Units 15:42 04:30 AST 81 H 66 H (5-40) units/L Lipids 03/18/22 Range/Units 15:42 Triglycerides 407 H (2-149) mg/dL Cholesterol 100 (50-199) mg/dL HDL Cholesterol 13 L (40-59) mg/dL Cholesterol/HDL Ratio 7.69 % CBC 03/18/22 03/19/22 Range/Units 15:42 04:30 WBC 8.1 13.5 H (4.5-11.0) K/mm3 RBC 2.55 L 2.70 L (3.65-5.03) M/mm3 Hgb 7.4 L 7.6 L (10.1-14.3) gm/dl Hct 22.1 L 23.5 L (30.3-42.9) % Plt Count 376 342 (140-440) K/mm3 Comprehensive Metabolic Panel 03/18/22 03/18/22 03/19/22 Range/Units 15:42 23:58 04:30 Sodium 131 L 132 L 133 L (137-145) mmol/L Potassium 6.2 H* 6.3 H* 5.9 H (3.6-5.0) mmol/L Chloride 97.6 L 98.5 100.5 (98-107) mmol/L Carbon Dioxide 13 L 12 L 12 L (22-30) mmol/L BUN 146 H 146 H 150 H (7-17) mg/dL Creatinine 6.8 H 7.1 H 7.1 H (0.6-1.2) mg/dL Glucose 216 H 124 H 157 H (65-100) mg/dL Calcium 8.8 9.9 10.1 (8.4-10.2) mg/dL AST 81 H 66 H (5-40) units/L ALT 76 H 60 H (7-56) units/L Alkaline Phosphatase 401 H 347 H (35-129) units/L Total Protein 6.7 6.4 (6.3-8.2) g/dL Albumin 1.8 L 1.7 L (3.9-5) g/dL EKG interpretations - Telemetry EKG Rhythm: Sinus Tachycardia (Otherwise normal ECG) Assessment and Plan - Patient Problems (1) Volume overload Current Visit: Yes Status: Acute Plan to address problem: 62-year-old, chronically ill and cachectic patient, with chronic kidney disease, presents with acute on chronic renal failure and fluid overload. Nephrology consultation and management is ongoing. With respect to cardiac status, we will order an echocardiogram for left ventricular function assessment, otherwise conservative cardiac management and follow-up.
[2022-03-19 13:33] LABS: Calcium 10.4 mg/dL (8.4-10.2)
[2022-03-19] MEDS ORDERED: CALCIUM GLUCONATE 2,000 MG in SODIUM CHLORIDE 0.9% 100 ML IV ONE (14:14)
[2022-03-19] MEDS ORDERED: INSULIN REGULAR, HUMAN 100 UNITS/1 ML IV SCH (14:30)
[2022-03-19] MEDS ORDERED: SODIUM POLYSTYRENE 15 GM/60 ML ORAL LIQD PO SCH (14:30)
[2022-03-19] MEDS ORDERED: CALC GLUCONATE 1GM/NS 100 ML 1 GM/100 ML BAG IV ONE ×2 (15:00→15:30)
[2022-03-19] MEDS ORDERED: DEXTROSE 50% IN WATER (25GM) 50 ML SYRINGE IV ONE (15:00)
[2022-03-19] MEDS: cefTRIAXone/NS 1 GM/50 ML 1 GM/50 ML BAG IV SCH (15:40)
[2022-03-19] MEDS: HEPARIN 5,000 UNIT/1 ML VIAL SUB-Q SCH ×2 (15:40→21:41)
[2022-03-19 18:38] LABS: Bacteria,Urine 2+ /HPF (Negative); Bilirubin,Urine NEG (Negative); Blood,Urine MOD (Negative); Color,Urine Amber (Yellow); Mucus,Urine 1+ /HPF; Sperm,Urine 1+ /HPF (NP); Urobilinogen,Urine < 2.0 mg/dL (<2.0)
[2022-03-19 18:42] LABS: RBC,Urine > 182.0 /HPF (0.0-6.0); WBC,Urine > 182.0 /HPF (0.0-6.0)
[2022-03-19] MEDS: SODIUM CHLORIDE 0.9% 1000 ML 1,000 ML IV SCH (21:52)
--- NOTE | 2022-03-19 22:11 | Progress Note ---
Subjective Interval history: Time of evaluation 10:15 in the morning patient was seen today for follow-up of multiple renal related issues, she is doing poorly, discussed with patient's nurse, potassium elevated patient acidotic, she is also encephalopathic, No complaints of any chest pain pressure or shortness of breath Interdisciplinary notes that also reviewed Events of 24 hours vitals labs intake output medications were reviewed Past medical history: Reviewed Family history: Reviewed Social history: Reviewed Allergies: Reviewed Physical examination: General sick appearing female appears older than her stated age Vitals: Reviewed HEENT: No pallor or icterus oral mucosa moist Neck: Supple no JVD no thyromegaly Chest: Basilar crackles at the lung bases Heart: Regular rate and rhythm S1-S2 heard no S3-S4 Abdomen: Soft nontender no voluntary guarding rigidity rebound Extremity: Dry skin less than 1+ peripheral edema Psychiatric: No evidence of agitation and aggression noted Dermatology: No petechial rashes Labs and x-rays: Reviewed from today Assessment and plan #Acute on chronic kidney disease patient admitted with worsening of renal failure metabolic acidosis hyperkalemia, being treated conservatively with some improvement, which is not significant, patient's overall prognosis appears to be very poor, she has been dialyzed in the past and according to her daughter it did not improve her quality of life and she does not want to proceed with dialysis at this point. Had a long discussion with patient daughter at length, who believes that patient health has markedly declined over time the quality of life has also gone down also discussed about the severity of renal failure and possibility of dialysis daughter clearly indicated that she does not want to proceed with dialysis knowing that even in the last visit when she was admitted it did not do any good, at this time she wants to proceed with palliative care and comfort care only, I did discuss with ICU attending physician Dr. Diaz and made him aware about family's discussion about comfort care only. At this point I would recommend discontinuing all the labs, involve palliative care and hospice, a ll questions were answered and simple [place] We'll continue to follow and make recommendation for renal standpoint Objective - Vital Signs Vital signs: Vital Signs - 12hr 03/19/22 03/19/22 03/19/22 10:15 10:31 10:45 Temperature Pulse Rate 73 95 H 92 H Pulse Rate [ From Monitor] Respiratory 32 H 35 H 32 H Rate Blood Pressure 118/69 118/69 118/69 O2 Sat by Pulse 100 100 100 Oximetry 03/19/22 03/19/22 03/19/22 11:00 11:15 11:31 Temperature Pulse Rate 76 86 92 H Pulse Rate [ From Monitor] Respiratory 35 H 32 H 20 Rate Blood Pressure 112/68 112/68 112/68 O2 Sat by Pulse 100 100 100 Oximetry 03/19/22 03/19/22 03/19/22 11:45 12:00 12:05 Temperature 97.3 F L Pulse Rate 76 73 68 Pulse Rate [ 68 From Monitor] Respiratory 17 32 H 35 H Rate Blood Pressure 112/68 108/64 O2 Sat by Pulse 100 100 99 Oximetry 03/19/22 03/19/22 03/19/22 12:15 12:31 12:45 Temperature Pulse Rate 69 76 74 Pulse Rate [ From Monitor] Respiratory 24 33 H 34 H Rate Blood Pressure 108/64 108/64 108/64 O2 Sat by Pulse 100 99 98 Oximetry 03/19/22 03/19/22 03/19/22 13:00 13:15 13:31 Temperature Pulse Rate 72 74 87 Pulse Rate [ From Monitor] Respiratory 32 H 29 H 33 H Rate Blood Pressure 116/70 116/70 116/70 O2 Sat by Pulse 99 96 100 Oximetry 03/19/22 03/19/22 03/19/22 13:45 14:00 14:15 Temperature Pulse Rate 73 84 70 Pulse Rate [ From Monitor] Respiratory 35 H 25 H 35 H Rate Blood Pressure 116/70 115/74 115/74 O2 Sat by Pulse 99 100 98 Oximetry 03/19/22 03/19/22 03/19/22 14:31 14:45 15:00 Temperature Pulse Rate 74 70 71 Pulse Rate [ From Monitor] Respiratory 32 H 30 H 34 H Rate Blood Pressure 115/74 115/74 109/65 O2 Sat by Pulse 96 99 96 Oximetry 03/19/22 03/19/22 03/19/22 15:15 15:31 15:45 Temperature Pulse Rate 73 74 95 H Pulse Rate [ From Monitor] Respiratory 16 27 H 36 H Rate Blood Pressure 109/65 109/65 109/65 O2 Sat by Pulse 97 98 98 Oximetry 03/19/22 03/19/22 03/19/22 16:00 16:07 16:15 Temperature 97.8 F Pulse Rate 97 H 94 H 96 H Pulse Rate [ 94 H From Monitor] Respiratory 33 H 35 H 33 H Rate Blood Pressure 117/73 117/73 O2 Sat by Pulse 98 98 97 Oximetry 03/19/22 03/19/22 03/19/22 16:30 16:46 17:00 Temperature Pulse Rate 92 H 78 76 Pulse Rate [ From Monitor] Respiratory 31 H 35 H 34 H Rate Blood Pressure 95/66 O2 Sat by Pulse 96 96 95 Oximetry 03/19/22 03/19/22 03/19/22 17:16 17:30 17:46 Temperature Pulse Rate 82 106 H 96 H Pulse Rate [ From Monitor] Respiratory 24 34 H 36 H Rate Blood Pressure 95/66 95/66 95/66 O2 Sat by Pulse 99 100 94 Oximetry 03/19/22 03/19/22 03/19/22 18:00 18:16 18:30 Temperature Pulse Rate 90 94 H 94 H Pulse Rate [ From Monitor] Respiratory 38 H 38 H 37 H Rate Blood Pressure 95/66 95/66 95/66 O2 Sat by Pulse 98 97 97 Oximetry 03/19/22 03/19/22 03/19/22 18:46 19:00 19:14 Temperature Pulse Rate 91 H 90 94 H Pulse Rate [ From Monitor] Respiratory 35 H 37 H Rate Blood Pressure 95/66 95/66 O2 Sat by Pulse 96 96 Oximetry 03/19/22 03/19/22 03/19/22 19:16 19:30 19:42 Temperature 97 F L Pulse Rate 92 H 93 H Pulse Rate [ From Monitor] Respiratory 36 H 38 H Rate Blood Pressure 95/66 95/66 O2 Sat by Pulse 97 98 Oximetry 03/19/22 03/19/22 19:46 20:46 Temperature Pulse Rate 92 H Pulse Rate [ From Monitor] Respiratory 41 H Rate Blood Pressure 95/66 O2 Sat by Pulse 99 99 Oximetry - Lab 03/19/22 04:30 03/19/22 13:01 Most recent lab results ABG pH 7.451 pH Units (7.350-7.450) H 03/18/22 22:02 ABG pCO2 18.0 mm Hg 03/18/22 22:02 ABG pO2 97.7 mm Hg (80.0-90.0) H 03/18/22 22:02 ABG HCO3 12.3 mmol/L (20.0-26.0) L 03/18/22 22:02 ABG O2 Saturation 97.9 % (95.0-99.0) 03/18/22 22:02 Calcium 10.4 mg/dL (8.4-10.2) H 03/19/22 13:01 Medications & Allergies - Medications Allergies/Adverse Reactions: Allergies No Known Allergies Allergy (Verified 01/09/22 11:43) Home Medications: Home Medications Medication Instructions Recorded Confirmed Last Taken Type amLODIPine 10 mg PO QDAY #30 tablet 03/09/21 01/09/22 Unknown Rx carvediloL [Coreg] 3.125 mg PO BID #60 tablet 03/09/21 01/09/22 Unknown Rx Cholecalciferol Vit D3 [Vitamin D3 1,000 unit PO DAILY #30 tablet 01/16/22 Unknown Rx 1,000 UNIT TAB] Losartan [Cozaar] 50 mg PO QDAY #30 tablet 01/18/22 Unknown Rx NIFEdipine XL [Procardia Xl] 30 mg PO QDAY #30 tablet 01/18/22 Unknown Rx amLODIPine 10 mg PO QDAY #30 tablet 01/30/22 Unknown Rx carvediloL [Coreg] 6.25 mg PO BID #60 tablet 01/30/22 Unknown Rx Active Medications: Generic Name Dose Route Start Last Admin Trade Name Freq PRN Reason Stop Dose Admin Acetaminophen 650 mg 03/18/22 20:16 Acetaminophen 325 Mg Tab PO Q4H PRN Pain MILD(1-3)/Fever >100.5/RILEY Heparin Sodium (Porcine) 5,000 unit 03/18/22 22:00 03/19/22 21:41 Heparin 5,000 Unit/1 Ml Vial SUB-Q Not Given Q12HR [facility] Sodium Chloride 1,000 mls @ 42 mls/hr 03/18/22 20:30 03/19/22 21:52 Nacl 0.9% 1000 Ml IV 42 mls/hr DIRECT [facility] Administration Ceftriaxone Sodium 1 gm in 50 mls @ 100 mls/hr 03/19/22 08:00 03/19/22 15:40 Rocephin/Ns 1 Gm/50 Ml IV 100 mls/hr Q24H [facility] Administration Protocol Morphine Sulfate 2 mg 03/18/22 20:16 03/19/22 21:51 Morphine 2 Mg/1 Ml Inj IV 2 mg Q4H PRN Administration Pain, Moderate (4-6) Ondansetron HCl 4 mg 03/18/22 20:16 Ondansetron 4 Mg/2 Ml Inj IV Q8H PRN Nausea And Vomiting Sodium Chloride 10 ml 03/18/22 22:00 03/19/22 21:40 Sodium Chloride 0.9% 10 Ml Flush Syringe IV 10 ml BID [facility] Administration Sodium Chloride 10 ml 03/18/22 20:16 Sodium Chloride 0.9% 10 Ml Flush Syringe IV PRN PRN LINE FLUSH
--- NOTE | 2022-03-20 02:33 | Consultation ---
DATE OF CONSULTATION: 03/19/2022 PULMONARY CRITICAL CARE CONSULT NOTE CONSULTING PHYSICIAN: Dr. Jemma Garcia. REASON FOR CONSULTATION: Acute hypoxemic respiratory failure. CHIEF COMPLAINT AND HISTORY OF PRESENT ILLNESS: As follows: I will premise this note by stating that the patient in question is on 100% nonrebreather with an acute encephalopathy and unable to give me a history. According to the records, she does have a past history of hypertension, was brought into the Emergency Room with increased shortness of breath. I believe she lives in a alf. In the Emergency Room, she was hypoxemic. She was placed on 100% nonrebreather mask. Her respiratory distress was described as being moderate at presentation. After evaluation, she was diagnosed with an acute exacerbation of CHF, but also an acute kidney injury as well as urinary tract infection. We are asked to assist with management. When I stopped by to see her, she was resting in bed. She was on 100% nonrebreather with a mildly increased respiratory effort at rest. I do not have a history of vomiting or overt aspiration. As far as we know, she is not a current smoker. The above is really as much of the history of presentation as I have. PAST MEDICAL HISTORY: History of hypertension, a history of congestive heart failure, a history of recurrent pneumonias. PAST SURGICAL HISTORY: Unknown. MEDICATIONS: She was on at the time I stopped by to see her according to the medication administration record included the following: Tylenol 650 mg p.o. q. 4 hours p.r.n. mild pain or fevers, Rocephin 1 gram IV daily, heparin 5000 units subcutaneous q. 12 hours, morphine sulfate 2 mg IV q. 4 hours p.r.n. moderate pain, Zofran 4 mg IV q. 8 hours p.r.n. nausea and vomiting. She did receive calcium, Lasix, and Kayexalate in the Emergency Room earlier. ALLERGIES: No known drug allergies. DIET: Thin lady, acute weight loss or gain history is unknown. SOCIAL HISTORY: Apparently a alf resident. She does have a daughter, who I will be reaching out to once I am done evaluating the patient. Social history otherwise unknown. FAMILY HISTORY: Otherwise unknown. REVIEW OF SYSTEMS: Unobtainable secondary to the patient's medical and mental condition. Since she has been here, no gross hematochezia or melena, no gross hematuria, no hematemesis, no hemoptysis, no bloody tracheal secretions, and no witnessed seizures. Review of systems otherwise unobtainable or as in body of history above. PHYSICAL EXAMINATION: VITAL SIGNS: At presentation, she was afebrile, temperature 98.4 degrees Fahrenheit, pulse of 103, respiratory rate of 18, blood pressure 106/66, respiratory rate was as high as 42 per minute in the Emergency Room, O2 sats were 97% on 100% nonrebreather. GENERAL: She is elderly and chronically ill looking female. Normocephalic, atraumatic. Resting in bed with mildly increased respiratory effort at rest. HEAD, EYES, EARS, NOSE AND THROAT: Anicteric. No conjunctival erythema. Oropharynx was dry. NECK: No gross jugular venous distention. No thyromegaly. Grossly, there were no palpable lymph nodes in the supraclavicular or submandibular lymph node chains. LUNGS: Auscultation of both lung ramirez revealed bilateral rales and referred upper airway sounds. No active wheezing. No accessory muscle use. HEART: Sounds 1 and 2 are heard at the time of my evaluation. Regular rate and rhythm without overt rubs or murmurs. ABDOMEN: Soft, flat, bowel sounds are positive, nontender, no palpable hepatosplenomegaly. EXTREMITIES: Without overt digital clubbing or cyanosis, no pedal edema. Pedal pulses are 2+ bilaterally. NEUROLOGIC: Pupils were equal, round, about 4 mm, reactive to light. Extraocular muscle movements were intact. She was encephalopathic. She did not respond to commands. She did have some spontaneous withdrawal movements to extremities with pressure applied to noxious areas. SKIN: Poor turgor; however, without overt cellulitis or rash in the areas I examined. Please see the wound care nurses' notes and registered nurse's notes for full description of her skin. PSYCHIATRIC: She had a flat affect. She was encephalopathic, did not have intact judgment and insight. LABORATORY DATA: From my review are as follows: Admission white cell count 8100, hemoglobin 7.4, hematocrit 22.1, platelet count 376, 35% band forms on the manual differential. Arterial blood gas in the Emergency Room showed a pH of 7.45, pCO2 of 18, pO2 of 98, that was on 100% FiO2. Serum sodium was 131, potassium was 6.2, chloride 98, bicarbonate 13, BUN 146, creatinine 6.8 and a glucose of 216. Lactic acid level was 2.4. Troponin was up at 0.506. AST was up at 81, ALT was up at 76. Albumin was low at 1.8. LDL cholesterol too numerous to count. Total cholesterol was 100. Urinalysis showed large leukocyte esterase, greater than 182 white cells per high power field. Urine drug screen was presumptive negative. Most recent chemistry shows a BUN of 150, creatinine is up to ____ and lactic acid level is 2.9. No microbiology studies for my review. Chest x-ray shows bilateral perihilar predominant infiltrates, but also involving the left lower lobe region, in particular. No gross pneumothorax. There is some enlargement of the pulmonary artery trunks that may suggest an element of pulmonary hypertension. No gross pneumothorax, no gross bony fracture. Compared to an x-ray from 01/09 slightly worse. She did have the interstitial edema also at that time. ASSESSMENT: 1. Acute hypoxemic respiratory failure, on 100% nonrebreather. 2. Acute on chronic kidney injury. 3. Pneumonia, possibly healthcare-associated pneumonia. 4. Urinary tract infection. 5. Acute possibly on chronic toxic metabolic encephalopathy. 6. Acute exacerbation of congestive heart failure. 7. Hyperkalemia. 8. Anemia that is normocytic. 9. Elevated serum transaminases. 10. Lactic acidosis. 11. Elevated serum B-type natriuretic peptide. PLAN: Despite the history of congestive heart failure and I do not have her ejection fraction here, I do feel that there is probably an element of intravascular volume depletion. She might not be too far from euvolemia, but there may be a prerenal aspect to the azotemia. She has received some Lasix and it is unclear if urine electrolytes are going to be accurate at this point in time. From a respiratory standpoint, I will be reaching out to the next of kin, who has indicated to the case management staff that she wants to make her mother a DNR as she was a DNR apparently at her alf. I will be reaching out to confirm or refute that. In the meantime, I think we can support her with noninvasive ventilation. Oxygen will be weaned to keep sats greater than or equal to about 90%. Aspiration precautions will be maintained. Nephrology has seen her. She probably will need renal replacement therapy if the daughter so wishes. He is having that discussion with them, that is the vice president planning, right now and I will defer to him. If she does end up needing dialysis, a vascular catheter will be placed for hemodialysis. Bronchodilators will be on a p.r.n. basis. Aspiration precautions. Head of bed greater than 40 degrees will be maintained. We will continue the Rocephin empirically for the urinary tract infection. We will follow cultures and deescalate based on results of clinical and microbiologic data. I will also be repeating the lactic acid level. Gentle volume rehydration will also be instituted at this point in time, watching out for overt pulmonary edema in light of her renal failure. Procalcitonin level, CRP levels will be ordered to help guide clinical decision-making. Infectious disease consultation will be at the behest of the attending physician. She is appropriately on DVT prophylaxis. She will be placed on GI prophylaxis with Pepcid. Flu and pneumonia vaccination will be addressed per protocol. Thank you very much for the consult. We will follow along and make further recommendations as picture progresses/becomes clearer. It is quite likely she would need vasopressor support to help her tolerate dialysis. A Trialysis catheter will be placed for hemodialysis in that case to help her, so that we can give vasoactive medications through the Trialysis port. Flu and pneumonia vaccination will be addressed per protocol. Again, she is critically ill, at very high risk of from renal and cardiopulmonary system decompensation. At this time, I spent about 35 minutes of critical care time without overlap and excluding any procedural time that may be necessary. TID: [id number] RECEIPT: [id number] LINDA/MARILIA/LAUREN
[2022-03-20] MEDS: cefTRIAXone/NS 1 GM/50 ML 1 GM/50 ML BAG IV SCH (08:36)
[2022-03-20 09:55] VITALS: BP 90/53
--- NOTE | 2022-03-20 10:00 | Discharge Summary ---
<AVELINO ROSARIO - Last Filed: 03/20/22 19:30> Providers - Providers Date of Admission: 03/18/22 20:16 Date of discharge: 03/20/22 Attending physician: BALDEV BONNER MD 03/18/22 18:04 Consult to Physician [CONS] Stat Comment: Consulting Provider: STAR OLIVAS Physician Instructions: Reason For Exam: hyperkalemia sandy 03/18/22 20:16 Consult to Physician [CONS] Routine Comment: Consulting Provider: HARDIK DURÁN Physician Instructions: Reason For Exam: Acute resp failure with hypoxia 03/19/22 07:14 Consult to Physician [CONS] Routine Comment: Consulting Provider: VENECIA WHITT Physician Instructions: Reason For Exam: CHF 03/19/22 08:20 Consult to Wound/ET Nurse [CONS] Routine Reason For Exam: wound eval 03/19/22 11:10 Consult to Dietitian/Nutrition [CONS] Routine Physician Instructions: Reason For Exam: Via PEG-Tube Reason for Consult: Write/Manage Tube Feeding Primary care physician: BOX SHOOK PATCHER Hospitalization Reason for admission: Acute on Chronic Kidney Injury and Acute Hypoxic respiratory Failure Condition: Critical Hospital course: This is 62-year-old female with known past medical history of HTN, CKD, vascular dementia, cerebral atherosclerosis, malnutrition, and debility admitted for acute hypoxic respiratory failure, hyperkalemia, and acute on chronic kidney disease. Hospital Course to Date: 03/19: Patient remains unresponsive, only grimace to pain. Still on NRB SPO2 at 100%, plan to wean O2 supplementation as tolerated. Hyperkalemia was treated per protocol, repeat BMP 4hrs post treatment, renal function is unchanged. Nephrology on consult. Thorough discussion with patient's daughter with [facility] and Nephrology discussing patient's condition and overall prognosis. Patient's daughter opted for AND/DNR and plan for inpatient hospice, possible tomorrow. 03/20: Plan to transfer to inpatient hospice today. Assessment and Plan #Acute Respiratory Failure with Hypoxia #Pulmonary Edema - Presented with hypoxia now on NRB, SPO2 at 100% - CXR Chest with mild bilateral perihilar interstitial opacities likely interstitial edema - s/p IV lasix - Continue O2 supplementation wean as tolerated - Aspiration precaution HOB above 30 - Continue SPO2 monitoring for SPO2 goal above 92% #Acute exacerbation of CHF (Congestive Heart Failure) #Elevated brain natriuretic peptide (BNP) level - BNP is 8680 - SB to SR on the monitor, HR 50 to 60s - Imaging consistent with interstitial edema - s/p IV Lasix, poor response only 100c UOP - Cardiology on consult, appreciated recommendations - 2D echo pending - Continue blood pressure monitor per protocol - Maintain MAP above 65 #Acute on Chronic Kidney Injury #Hyperkalemia - Per record patient was received HD on last admit - HD and permacath was removed on 01/29 prior to D/C to SNF for inpatient hospice - High K treated wir Ca gluconate, IV insulin/D50W, Kayexalate - Repeat BMP 4hrs post treatment - Nephrology on consult, appreciated recommendation - Strict intake and output - s/p IV Lasix, poor response only 100c UOP - Avoid nephrotoxic medications; Renally dose medications - Thorough discussion with Nephrology, CCM, and family. Patient family opted for AND/DNR - Plan for possible in patient hospice in the am #Urinary Tract Infection #Leukocytosis #Sacral Decubitus Ulcer - UA consistent with UTI, urine culture pending - Patient remains afebrile, VSS, lactic acidosis probably due to CKD - Will check procal - On empiric IV ABx- Rocephin - Continue to F/U on cult - Trend CBC and lactic - Wound care consulted #Metabolic Encephalopathy #hx of Vascular dementia - Per SNF record, patient is nonverbal - Only grimace to pain - Avoid benzodiazepine to reduce the possibility of delirium - Prn analgesia for pain management - Maintenance of sleep-wake cycle #Dysphagia #Severe protein-calorie malnutrition - PEGTube present - Will resume enteral nutrition - Nutrition consulted #Anemia - Possibly secondary to underlying kidney disease - H&H is stable - Monitor for s/s of any active bleeding - Transfuse for Hgb less than 7 #GI/DVT Prophylaxis - PPI- Pepcid - Heparin SubQ Disposition: 50 HOSPICE/HOME Final Discharge Diagnosis (Prints w/discharge instructions): Acute on Chronic Kidney Injury. Acute Hypoxic respiratory Failure Time spent for discharge: 35 Core Measure Documentation - Palliative Care Palliative Care/ Comfort Measures: Hospice Care - Core Measures Any of the following diagnoses?: none Exam - Physical Exam Narrative exam: General appearance: Present: no acute distress, cachectic, other (Nonverbal, only grimace to pain) - EENT Eyes: Present: PERRL - Respiratory Respiratory effort: normal Respiratory: bilateral: rhonchi - Cardiovascular Rhythm: regular Heart Sounds: Present: S1 & S2 - Extremities Extremities: no ischemia, pulses intact, pulses symmetrical, abnormal (Bilateral Upper and Lower extremities are contracted) Peripheral Pulses: within normal limits - Abdominal General gastrointestinal: soft, non-distended, normal bowel sounds, other (PEG- Tube present) - Integumentary Integumentary: Present: warm (Multiple pressure Ulcers ), dry - Psychiatric Psychiatric: other (Nonverbal, only grimace to pain) - Neurologic Neurologic: other (Nonverbal, only grimace to pain, does not follow commands) - Allied Health Allied health notes reviewed: nursing - Constitutional Vitals: Temp Pulse Resp BP Pulse Ox 98.2 F 110 H 35 H 90/53 97 03/20/22 08:00 03/20/22 09:46 03/20/22 09:46 03/20/22 09:46 03/20/22 09:50 Plan Activity: fall precautions Diet: other (Tube Feed via PegTube) Follow up with: DANIELA ABDI MD [Primary Care Provider] - 7 Days <BALDEV BONNER - Last Filed: 03/21/22 07:17> Providers - Providers Date of Admission: 03/18/22 20:16 Attending physician: BALDEV BONNER MD 03/18/22 18:04 Consult to Physician [CONS] Stat Comment: Consulting Provider: STAR OLIVAS Physician Instructions: Reason For Exam: hyperkalemia sandy 03/18/22 20:16 Consult to Physician [CONS] Routine Comment: Consulting Provider: HARDIK DURÁN Physician Instructions: Reason For Exam: Acute resp failure with hypoxia 03/19/22 08:20 Consult to Wound/ET Nurse [CONS] Routine Reason For Exam: wound eval 03/19/22 11:10 Consult to Dietitian/Nutrition [CONS] Routine Physician Instructions: Reason For Exam: Via PEG-Tube Reason for Consult: Write/Manage Tube Feeding Primary care physician: DANIELA ABDI MD Hospitalization Hospital course: I saw and evaluated the patient. I agree with the findings and the plan of care as documented in the Nurse Practitioner's~note, with the following corrections and additions. Exam - Constitutional Vitals: Temp Pulse Resp BP Pulse Ox 98.2 F 110 H 35 H 90/53 97 03/20/22 08:00 03/20/22 09:46 03/20/22 09:46 03/20/22 09:46 03/20/22 09:50
[2022-03-20] MEDS ORDERED: METOPROLOL TARTRATE 25 MG TAB PO SCH (12:00)
--- NOTE | 2022-03-20 12:06 | Progress Note ---
Assessment and Plan Cardiac arrest with ROSC Acute hypoxemic respiratory failure, on mechanical ventilatory support Acute toxic metabolic encephalopathy Acute kidney injury, possibly on chronic Bilateral pneumonia, possibly aspiration Mild interstitial edema Elevated serum transaminases Lactic acidosis Leukopenia at presentation Thrombocytopenia Oropharyngeal dysphagia - neurology evaluation ongoing - continue Daily SAT and SBT assessment as tolerated - continue to wean supplemental oxygen for target O2 sat's > 90% acutely - VAP bundle addressed - continue lung protective strategies - continue bronchodilators with pulmonary hygiene per RT - wean per pulmonary driven protocols otherwise - continue accuchecks with glycemic control per SSI (While critically ill target blood glucose of 140-180 mg/dL; avoid hypoglycemia) - sedation prn for target RASS 0 to -1 - avoid nephrotoxins, renally dose all medications - continue to avoid benzodiazepine's, reduce the possibility of delirium - AB's per ID rec's - prn analgesia per CPOT score - Maintenance of sleep-wake cycle, avoid delirium - continue enteral nutritional support at goal rate as tolerated - G.I. & VTE prophylaxis - PT/OT/ROM exercises - continue mobility protocols for pressure ulcer prophylaxis - Monitor hemodynamics closely - continue other care per attending / other consultants - discharge planning ongoing concurrently .... Re-evaluate in am & prn Subjective Date of service: 03/20/22 Interval history: Patient is seen today for: Seen and examined at bedside; 24hour events reviewed; nursing and respiratory care staff consulted; no adverse overnight events reported to me; resting in bed; AMS is persistent; Objective Vital Signs - 12hr 03/20/22 03/20/22 03/20/22 00:16 00:30 00:46 Temperature Pulse Rate 86 83 90 Respiratory 35 H 37 H 38 H Rate Blood Pressure 87/62 87/62 87/62 O2 Sat by Pulse 99 100 100 Oximetry 03/20/22 03/20/22 03/20/22 01:00 01:16 01:30 Temperature Pulse Rate 105 H 82 89 Respiratory 34 H 36 H 36 H Rate Blood Pressure 86/60 86/60 86/60 O2 Sat by Pulse 100 100 100 Oximetry 03/20/22 03/20/22 03/20/22 01:46 02:00 02:16 Temperature Pulse Rate 88 89 100 H Respiratory 36 H 33 H 36 H Rate Blood Pressure 86/60 84/55 84/55 O2 Sat by Pulse 100 100 100 Oximetry 03/20/22 03/20/22 03/20/22 02:30 02:46 03:00 Temperature Pulse Rate 100 H 90 87 Respiratory 38 H 35 H 35 H Rate Blood Pressure 84/55 84/55 82/56 O2 Sat by Pulse 99 100 99 Oximetry 03/20/22 03/20/22 03/20/22 03:03 03:04 03:16 Temperature 96.8 F L Pulse Rate 87 91 H Respiratory 36 H 36 H Rate Blood Pressure 82/56 O2 Sat by Pulse 98 100 Oximetry 03/20/22 03/20/22 03/20/22 03:30 03:46 04:00 Temperature Pulse Rate 109 H 109 H 86 Respiratory 37 H 36 H 36 H Rate Blood Pressure 82/56 82/56 80/49 O2 Sat by Pulse 99 99 100 Oximetry 03/20/22 03/20/22 03/20/22 04:16 04:30 04:46 Temperature Pulse Rate 97 H 78 93 H Respiratory 35 H 34 H 31 H Rate Blood Pressure 80/49 80/49 80/49 O2 Sat by Pulse 99 100 99 Oximetry 03/20/22 03/20/22 03/20/22 05:00 05:16 05:30 Temperature Pulse Rate 88 107 H 110 H Respiratory 34 H 32 H 31 H Rate Blood Pressure 84/54 84/54 84/54 O2 Sat by Pulse 98 100 98 Oximetry 03/20/22 03/20/22 03/20/22 05:46 06:00 06:16 Temperature Pulse Rate 109 H 101 H 88 Respiratory 35 H 38 H 34 H Rate Blood Pressure 84/54 77/51 77/51 O2 Sat by Pulse 99 100 100 Oximetry 03/20/22 03/20/22 03/20/22 06:30 06:46 07:00 Temperature Pulse Rate 88 110 H 90 Respiratory 35 H 36 H 38 H Rate Blood Pressure 77/51 77/51 82/52 O2 Sat by Pulse 100 100 99 Oximetry 03/20/22 03/20/22 03/20/22 07:16 07:30 07:46 Temperature Pulse Rate 108 H 112 H 90 Respiratory 36 H 37 H 37 H Rate Blood Pressure 82/52 82/52 82/52 O2 Sat by Pulse 100 100 100 Oximetry 03/20/22 03/20/22 03/20/22 08:00 08:16 08:30 Temperature 98.2 F Pulse Rate 98 H 107 H 108 H Respiratory 36 H 40 H 45 H Rate Blood Pressure 82/58 82/58 82/58 O2 Sat by Pulse 98 98 97 Oximetry 03/20/22 03/20/22 03/20/22 08:46 09:00 09:16 Temperature Pulse Rate 108 H 109 H 109 H Respiratory 37 H 32 H 37 H Rate Blood Pressure 82/58 90/53 90/53 O2 Sat by Pulse 97 94 97 Oximetry 03/20/22 03/20/22 03/20/22 09:30 09:46 09:50 Temperature Pulse Rate 109 H 110 H Respiratory 44 H 35 H Rate Blood Pressure 90/53 90/53 O2 Sat by Pulse 96 95 97 Oximetry Constitutional: no acute distress Eyes: non-icteric ENT: oropharynx moist Neck: supple, no lymphadenopathy, no JVD Effort: mildly labored Ascultation: Bilateral: diminished breath sounds, rhonchi Percussion: Bilateral: not dull Cardiovascular: regular rate and rhythm Gastrointestinal: normoactive bowel sounds, soft, non-tender, non-distended Integumentary: decubitus ulcer Extremities: no cyanosis, no edema, pulses normal, no ischemia or petechiae Neurologic: unable to assess Psychiatric: other (flat affect) CBC and BMP: 03/19/22 04:30 03/19/22 20:36 ABG, PT/INR, D-dimer: ABG ABG pH 7.451 pH Units (7.350-7.450) H 03/18/22 22:02 ABG pCO2 18.0 mm Hg 03/18/22 22:02 ABG pO2 97.7 mm Hg (80.0-90.0) H 03/18/22 22:02 ABG O2 Saturation 97.9 % (95.0-99.0) 03/18/22 22:02 Abnormal lab findings: Abnormal Labs 03/18/22 03/18/22 03/18/22 15:42 15:42 15:42 WBC RBC 2.55 L Hgb 7.4 L Hct 22.1 L Lymphocytes % (Manual) 4.0 L Seg Neutrophils # Man Lymphocytes # (Manual) 0.3 L ABG pH ABG pO2 ABG HCO3 ABG Base Excess ABG Hemoglobin Sodium 131 L Potassium 6.2 H* Chloride 97.6 L Carbon Dioxide 13 L BUN 146 H Creatinine 6.8 H Glucose 216 H POC Glucose Lactic Acid 2.40 H* Calcium AST 81 H ALT 76 H Alkaline Phosphatase 401 H Troponin T NT-Pro-B Natriuret Pep Albumin 1.8 L Triglycerides HDL Cholesterol Urine WBC (Auto) 03/18/22 03/18/22 03/18/22 15:42 15:42 17:30 WBC RBC Hgb Hct Lymphocytes % (Manual) Seg Neutrophils # Man Lymphocytes # (Manual) ABG pH ABG pO2 ABG HCO3 ABG Base Excess ABG Hemoglobin Sodium Potassium Chloride Carbon Dioxide BUN Creatinine Glucose POC Glucose 177 H Lactic Acid Calcium AST ALT Alkaline Phosphatase Troponin T 0.506 H* NT-Pro-B Natriuret Pep 8680 H Albumin Triglycerides 407 H HDL Cholesterol 13 L Urine WBC (Auto) 03/18/22 03/18/22 03/18/22 22:02 23:23 23:31 WBC RBC Hgb Hct Lymphocytes % (Manual) Seg Neutrophils # Man Lymphocytes # (Manual) ABG pH 7.451 H ABG pO2 97.7 H ABG HCO3 12.3 L ABG Base Excess -10.4 L ABG Hemoglobin 7.3 L Sodium Potassium Chloride Carbon Dioxide BUN Creatinine Glucose POC Glucose 116 H Lactic Acid Calcium AST ALT Alkaline Phosphatase Troponin T NT-Pro-B Natriuret Pep Albumin Triglycerides HDL Cholesterol Urine WBC (Auto) > 182.0 H 03/18/22 03/18/22 03/19/22 23:58 23:58 04:30 WBC 13.5 H RBC 2.70 L Hgb 7.6 L Hct 23.5 L Lymphocytes % (Manual) 5.0 L Seg Neutrophils # Man 8.6 H Lymphocytes # (Manual) 0.7 L ABG pH ABG pO2 ABG HCO3 ABG Base Excess ABG Hemoglobin Sodium 132 L Potassium 6.3 H* Chloride Carbon Dioxide 12 L BUN 146 H Creatinine 7.1 H Glucose 124 H POC Glucose Lactic Acid 2.50 H* Calcium AST ALT Alkaline Phosphatase Troponin T NT-Pro-B Natriuret Pep Albumin Triglycerides HDL Cholesterol Urine WBC (Auto) 03/19/22 03/19/22 03/19/22 04:30 04:30 13:01 WBC RBC Hgb Hct Lymphocytes % (Manual) Seg Neutrophils # Man Lymphocytes # (Manual) ABG pH ABG pO2 ABG HCO3 ABG Base Excess ABG Hemoglobin Sodium 133 L 133 L Potassium 5.9 H 6.9 H* Chloride Carbon Dioxide 12 L 12 L BUN 150 H 154 H Creatinine 7.1 H 7.1 H Glucose 157 H 102 H POC Glucose Lactic Acid 2.90 H* Calcium 10.4 H AST 66 H ALT 60 H Alkaline Phosphatase 347 H Troponin T NT-Pro-B Natriuret Pep Albumin 1.7 L Triglycerides HDL Cholesterol Urine WBC (Auto) 03/19/22 03/19/22 03/20/22 16:47 20:36 05:10 WBC RBC Hgb Hct Lymphocytes % (Manual) Seg Neutrophils # Man Lymphocytes # (Manual) ABG pH ABG pO2 ABG HCO3 ABG Base Excess ABG Hemoglobin Sodium Potassium 6.0 H Chloride Carbon Dioxide 11 L BUN 156 H Creatinine 7.2 H Glucose POC Glucose 106 H Lactic Acid Calcium 11.0 H AST ALT Alkaline Phosphatase Troponin T NT-Pro-B Natriuret Pep Albumin Triglycerides HDL Cholesterol Urine WBC (Auto) > 182.0 H Allied health notes reviewed: nursing
--- NOTE | 2022-03-20 13:34 | Progress Note ---
Assessment and Plan - Patient Problems (1) Volume overload Status: Acute Plan to address problem: 62-year-old, chronically ill and cachectic patient, with chronic kidney disease, presents with acute on chronic renal failure and fluid overload. Nephrology consultation and management is ongoing. Echocardiogram done yesterday shows normal left ventricular systolic function, ejection fraction 65%, no significant valvular lesions. Pulmonary artery systolic pressure 35-40. No further cardiac intervention is indicated, we will sign off. Subjective Date of service: 03/20/22 Principal diagnosis: Altered mental status Interval history: Patient is somnolent, with labored breathing on facemask oxygen. On bus monitor, there is a sinus tachycardia at 110. Echocardiogram done yesterday shows normal left ventricular systolic function, ejection fraction 65%, no significant valvular lesions. Pulmonary artery systolic pressure 35-40. Objective Vital Signs Temp Pulse Pulse Resp BP Pulse Ox 03/20/22 09:50 97 03/20/22 09:46 110 H 35 H 90/53 95 03/20/22 09:30 109 H 44 H 90/53 96 03/20/22 09:16 109 H 37 H 90/53 97 03/20/22 09:00 109 H 32 H 90/53 94 03/20/22 08:46 108 H 37 H 82/58 97 03/20/22 08:30 108 H 45 H 82/58 97 03/20/22 08:16 107 H 40 H 82/58 98 03/20/22 08:00 98.2 F 98 H 36 H 82/58 98 03/20/22 07:46 90 37 H 82/52 100 03/20/22 07:30 112 H 37 H 82/52 100 03/20/22 07:16 108 H 36 H 82/52 100 03/20/22 07:00 90 38 H 82/52 99 03/20/22 06:46 110 H 36 H 77/51 100 03/20/22 06:30 88 35 H 77/51 100 03/20/22 06:16 88 34 H 77/51 100 03/20/22 06:00 101 H 38 H 77/51 100 03/20/22 05:46 109 H 35 H 84/54 99 03/20/22 05:30 110 H 31 H 84/54 98 03/20/22 05:16 107 H 32 H 84/54 100 03/20/22 05:00 88 34 H 84/54 98 03/20/22 04:46 93 H 31 H 80/49 99 03/20/22 04:30 78 34 H 80/49 100 03/20/22 04:16 97 H 35 H 80/49 99 03/20/22 04:00 86 36 H 80/49 100 03/20/22 03:46 109 H 36 H 82/56 99 03/20/22 03:30 109 H 37 H 82/56 99 03/20/22 03:16 91 H 36 H 82/56 100 03/20/22 03:04 96.8 F L 03/20/22 03:03 87 36 H 98 03/20/22 03:00 87 35 H 82/56 99 03/20/22 02:46 90 35 H 84/55 100 03/20/22 02:30 100 H 38 H 84/55 99 03/20/22 02:16 100 H 36 H 84/55 100 03/20/22 02:00 89 33 H 84/55 100 03/20/22 01:46 88 36 H 86/60 100 03/20/22 01:30 89 36 H 86/60 100 03/20/22 01:16 82 36 H 86/60 100 03/20/22 01:00 105 H 34 H 86/60 100 03/20/22 00:46 90 38 H 87/62 100 03/20/22 00:30 83 37 H 87/62 100 03/20/22 00:16 86 35 H 87/62 99 03/20/22 00:00 97 F L 107 H 36 H 87/62 100 03/19/22 23:46 112 H 36 H 77/54 98 03/19/22 23:30 108 H 40 H 77/54 97 03/19/22 23:16 104 H 39 H 77/54 98 03/19/22 23:05 112 H 03/19/22 23:02 87 38 H 77/54 100 03/19/22 23:00 104 H 37 H 77/54 98 03/19/22 22:46 86 37 H 84/57 96 03/19/22 22:30 87 40 H 84/57 98 03/19/22 22:16 104 H 40 H 84/57 96 03/19/22 22:00 91 H 37 H 84/57 94 03/19/22 21:46 104 H 35 H 99/61 96 03/19/22 21:30 93 H 40 H 95/66 90 03/19/22 21:16 93 H 21 95/66 95 03/19/22 21:00 92 H 36 H 95/66 98 03/19/22 20:46 92 H 39 H 95/66 98 03/19/22 20:30 89 37 H 95/66 98 03/19/22 20:16 93 H 41 H 95/66 97 03/19/22 20:00 102 H 41 H 95/66 98 03/19/22 19:46 92 H 41 H 95/66 99 03/19/22 19:42 97 F L 03/19/22 19:30 93 H 38 H 95/66 98 03/19/22 19:16 92 H 36 H 95/66 97 03/19/22 19:14 94 H 03/19/22 19:00 90 37 H 95/66 96 03/19/22 18:46 91 H 35 H 95/66 96 03/19/22 18:30 94 H 37 H 95/66 97 03/19/22 18:16 94 H 38 H 95/66 97 03/19/22 18:00 90 38 H 95/66 98 03/19/22 17:46 96 H 36 H 95/66 94 03/19/22 17:30 106 H 34 H 95/66 100 03/19/22 17:16 82 24 95/66 99 03/19/22 17:00 76 34 H 95/66 95 03/19/22 16:46 78 35 H 96 03/19/22 16:30 92 H 31 H 96 03/19/22 16:15 96 H 33 H 117/73 97 03/19/22 16:07 94 H 94 H 35 H 98 03/19/22 16:00 97.8 F 97 H 33 H 117/73 98 03/19/22 15:45 95 H 36 H 109/65 98 03/19/22 15:31 74 27 H 109/65 98 03/19/22 15:15 73 16 109/65 97 03/19/22 15:00 71 34 H 109/65 96 03/19/22 14:45 70 30 H 115/74 99 03/19/22 14:31 74 32 H 115/74 96 03/19/22 14:15 70 35 H 115/ 98 03/19/22 14:00 84 25 H 115 100 03/19/22 13:45 73 35 H 116/70 99 - Physical Examination General: Cachectic, Other (Patient is emaciated, chronically ill-appearing, somnolent on facemask oxygen) HEENT: Positive: PERRL Neck: Positive: neck supple Cardiac: Positive: Regular Rhythm Lungs: Positive: Decreased Breath Sounds Neuro: Positive: Weakness (Generalized lethargy) Abdomen: Positive: Soft Skin: Positive: Clear Extremities: Absent: edema - Labs and Meds Comprehensive Metabolic Panel 03/19/22 03/19/22 Range/Units 13:01 20:36 Sodium 133 L 137 (137-145) mmol/L Potassium 6.9 H* 6.0 H (3.6-5.0) mmol/L Chloride 102.2 105.0 (98-107) mmol/L Carbon Dioxide 12 L 11 L (22-30) mmol/L BUN 154 H 156 H (7-17) mg/dL Creatinine 7.1 H 7.2 H (0.6-1.2) mg/dL Glucose 102 H 98 (65-100) mg/dL Calcium 10.4 H 11.0 H (8.4-10.2) mg/dL - Allied health notes Allied health notes reviewed: nursing
--- NOTE | 2022-03-20 17:51 | Electrocardiograph Report ---
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
== END 2022-03-20 11:00 | disposition hospice, inpatient (51) | DRG 189 ==
LOC: ED 13:14 → CC1 20:16
PROVIDERS: ADMIT Internal Medicine; ATTEND Internal Medicine
PROC: 4A033R1 Measurement of Arterial Saturation, Peripheral, Percutaneous Approach (ICD-10-PCS; principal; 2022-03-18)
DX: J96.01 Acute respiratory failure with hypoxia (principal); I50.43 Acute on chronic combined systolic (congestive) and diastolic (congestive) heart failure; E43 Unspecified severe protein-calorie malnutrition; I46.9 Cardiac arrest, cause unspecified; G92.8 Other toxic encephalopathy; J18.9 Pneumonia, unspecified organism; N17.9 Acute kidney failure, unspecified; Z20.822 Contact with and (suspected) exposure to COVID-19; Z66 Do not resuscitate; E87.2 Acidosis; E87.5 Hyperkalemia; N30.00 Acute cystitis without hematuria; D64.9 Anemia, unspecified; I13.0 Hypertensive heart and chronic kidney disease with heart failure and stage 1 through stage 4 chronic kidney disease, or unspecified chronic kidney disease; N18.9 Chronic kidney disease, unspecified; F01.50 Vascular dementia, unspecified severity, without behavioral disturbance, psychotic disturbance, mood disturbance, and anxiety; I67.2 Cerebral atherosclerosis; L89.159 Pressure ulcer of sacral region, unspecified stage; R13.12 Dysphagia, oropharyngeal phase; D69.6 Thrombocytopenia, unspecified; Z79.899 Other long term (current) drug therapy; R77.8 Other specified abnormalities of plasma proteins
CPT/HCPCS: 36415; 36600; 71045; 80048; 80053; 80061; 80307; 81001; 82140; 82803; 82962; 83880; 84484; 85007; 85025; 87086; 93005; 93306; 94644; 94760; G0378; J3490; Q9967; C8929; J0610; J0696; J1644; J1815; J1940; J2270; J7030; U0003